=== PATIENT | female | born 1960 | race Caucasian/White ===

== ENCOUNTER 2020-03-26 12:10 | Outpatient (REF) | payer OTHER, SELFPAY ==
--- NOTE | 2020-03-26 | MM_ITS ---
EXAMINATION: MM SCREENING DIGITAL BREAST TOMOSYNTHESIS, BILATERAL CLINICAL INFORMATION: Screening. Asymptomatic. The lifetime risk of breast cancer based on the Tyrer-Cuzick Model is 7%. COMPARISON: Mammography: 03/21/2019, 07/01/2014 TECHNIQUE: Digital breast tomosynthesis is performed in both the craniocaudal and mediolateral oblique views along with computer-aided detection (CAD). Synthesized 2D images are generated from the tomosynthesis. FINDINGS: The breasts are heterogeneously dense, which may obscure small masses (ACR BI-RADS breast composition Category c). There are no significant masses, abnormal calcifications, or other abnormalities. Parenchymal pattern is similar to prior studies. No significant changes. The axilla and skin contours are unremarkable. MM/MM tomosynthesis screening BI IMPRESSION: There are no significant changes from prior study. ASSESSMENT: BI-RADS 1: Negative RECOMMENDATION: Routine annual mammography screening. This patient's information was entered into a reminder system with a target due date for their next mammogram.
== END 2020-03-26 12:11 | disposition home or self-care (01) ==
LOC: HO.MAMMO 12:10
PROVIDERS: PCP Family Medicine; Visit Provider Family Medicine
DX: Z12.31 Encounter for screening mammogram for malignant neoplasm of breast (principal)
CPT/HCPCS: 77063; 77067

== ENCOUNTER 2020-10-22 10:07 | Outpatient (REF) | payer OTHER, SELFPAY ==
[2020-10-27 12:02] LABS: FIB-ALT 54 U/L (6-29); FIB-Alpha-2-Macroglobulin 214 mg/dL (106-279); FIB-Apolipoprotein A1 245 mg/dL (101-198); FIB-GGT 3426 U/L (3-65); FIB-Haptoglobin 34 mg/dL (43-212); FIB-Total Bilirubin 2.3 mg/dL (0.2-1.2)
== END 2020-10-22 10:08 | disposition home or self-care (01) ==
LOC: HO.WFDLDS 10:07
PROVIDERS: Visit Provider Family Medicine
DX: K75.81 Nonalcoholic steatohepatitis (NASH) (principal); R79.89 Other specified abnormal findings of blood chemistry
CPT/HCPCS: 36415; 81596

== ENCOUNTER 2021-04-10 11:17 | Outpatient (REF) | payer OTHER, SELFPAY ==
[2021-04-10 14:03] LABS: Alanine Aminotransferase 32 U/L (0-31); Albumin Level 3.7 g/dL (3.5-5.0); Alkaline Phosphatase 440 U/L (39-117); Aspartate Amino Transferase 78 U/L (5-31); Bilirubin Direct 0.5 mg/dL (0.0-0.5); Bilirubin Total 0.8 mg/dL (0.0-1.0); Iron 84 mcg/dL (30-160); Percent Iron Saturation 23 % (15-50); Total Iron Binding Capacity 369 mcg/dL (228-428); Total Protein 7.4 g/dL (6.5-8.0); Unsaturated Iron Binding 285 ug/dL
== END 2021-04-10 11:18 | disposition home or self-care (01) ==
LOC: HO.WFDLDS 11:17
PROVIDERS: PCP Family Medicine; Visit Provider Family Medicine
DX: D50.9 Iron deficiency anemia, unspecified (principal); R18.8 Other ascites
CPT/HCPCS: 36415; 80076; 83540

== ENCOUNTER 2021-06-04 12:00 | Outpatient (REF) | payer OTHER, SELFPAY | END 2021-06-04 12:01 | disposition home or self-care (01) | LOC: HO.WFDLDS 12:00 | PROVIDERS: Visit Provider Family Medicine | DX: M10.9 Gout, unspecified (principal) | CPT/HCPCS: 36415; 84550 ==

== ENCOUNTER 2021-08-12 10:18 | Outpatient (REF) | payer OTHER, SELFPAY ==
--- NOTE | ~2021-08-12 | MM_ITS ---
EXAMINATION: MM SCREENING DIGITAL BREAST TOMOSYNTHESIS, BILATERAL CLINICAL INFORMATION: Screening. Asymptomatic. The lifetime risk of breast cancer based on the Tyrer-Cuzick Model is 6%. COMPARISON: Mammography: 03/26/2020, 03/21/2019, 07/01/2014 TECHNIQUE: Digital breast tomosynthesis is performed in both the craniocaudal and mediolateral oblique views along with computer-aided detection (CAD). Synthesized 2D images are generated from the tomosynthesis. FINDINGS: The breasts are heterogeneously dense, which may obscure small masses (ACR BI-RADS breast composition Category c). There are no significant masses, abnormal calcifications, or other abnormalities. Parenchymal pattern is similar to prior study. No developing density or architectural abnormality. The axilla and skin contours are unremarkable. MM/MM tomosynthesis screening BI IMPRESSION: No mammographic evidence of malignancy. ASSESSMENT: BI-RADS 1: Negative RECOMMENDATION: Routine annual mammography screening. This patient's information was entered into a reminder system with a target due date for their next mammogram.
--- NOTE | 2021-08-12 10:22 | EMG_ITS ---
HISTORY OF PRESENT ILLNESS: This is a 61-year-old woman who fell in January and injured in the left upper back area, in the scapular area, and since then, has had severe lower cervical pain and pain in the left scapular pain that radiates down the left upper extremity, which goes numb. She is not aware of any weakness. PHYSICAL EXAMINATION: On examination, she is alert, oriented with normal intellectual functions. Cranial nerves are normal. Muscle tone and strength are normal except for slight atrophy of the 1st dorsal interosseous muscle with weakness of finger spread. IMPRESSION: Rule out ulnar nerve entrapment, rule out lower cervical radiculopathy. Nerve conduction EMG study: Mild carpal tunnel syndrome on the left. Normal nerve conduction in the ulnar nerve on the left. EMG of the left C5-T1 innervated muscles shows active denervation in the C8-T1 innervated muscles on the left, consistent with C8-T1 radiculopathy. MRI of the cervical spine is recommended. MD JOLEEN Love/RORY / [id number]
== END 2021-08-12 10:19 | disposition home or self-care (01) ==
LOC: HO.NEURO 10:18
PROVIDERS: PCP Family Medicine; Visit Provider Family Medicine
DX: M79.602 Pain in left arm (principal); G90.09 Other idiopathic peripheral autonomic neuropathy; Z12.31 Encounter for screening mammogram for malignant neoplasm of breast
CPT/HCPCS: 77063; 77067; 95885; 95910

== ENCOUNTER 2021-11-19 13:10 | Outpatient (REF) | payer OTHER, SELFPAY ==
--- NOTE | ~2021-11-19 | CT_ITS ---
EXAMINATION: CT CERVICAL SPINE WITHOUT CONTRAST CLINICAL INFORMATION: Cervical radiculopathy. COMPARISON: None TECHNIQUE: CT of the cervical spine was performed without contrast. Multiplanar reformats were rendered and reviewed. This CT examination was performed using dose optimization techniques as appropriate, variously including the following: *Automated exposure control *Adjustment of mA and/or kV according to patient size (this includes techniques or standardized protocols for targeted exams where dose is matched to indication/reason for exam; i.e. extremities or head) *Use of iterative reconstruction technique DLP: 353 mGy-cm FINDINGS: The cervical vertebral bodies maintain normal heights. There is grade 1 anterolisthesis of C4 on C5 and C7 on T1. There is severe disc height loss with advanced degenerative endplate changes and marginal osteophytes at C5-C6, C6-C7, and C7-T1. Advanced facet arthropathy is seen on the left at C4-C5 and C7-T1. There is a mild degree of dextroscoliotic curvature in the lower cervical spine. The spinal canal is capacious. The imaged portions of the intracranial contents are within normal limits. The cervical soft tissues are within normal limits. Emphysematous changes are noted at the lung apices. SPINAL LEVELS: C2-C3: Left uncovertebral hypertrophy and facet arthropathy resulting in mild left neural foraminal stenosis. No spinal canal stenosis. C3-C4: Mild disc osteophyte complex with left more than right uncovertebral hypertrophy and facet arthropathy resulting in mild left neural foraminal stenosis. No spinal canal stenosis. C4-C5: Disc osteophyte complex with advanced left facet arthropathy and uncovertebral hypertrophy resulting in severe left neural foraminal stenosis. No spinal canal stenosis. C5-C6: Disc osteophyte complex with uncovertebral hypertrophy resulting in severe bilateral neural foraminal stenosis. No spinal canal stenosis. C6-C7: Disc osteophyte complex with uncovertebral hypertrophy resulting in severe bilateral neural foraminal stenosis. No spinal canal stenosis. C7-T1: Disc osteophyte complex with uncovertebral hypertrophy and severe left facet arthropathy resulting in severe left and moderate right neural foraminal stenosis. No spinal canal stenosis. CT/CT cervical spine wo IV con IMPRESSION: Advanced degenerative spondylotic changes resulting in varying degrees of neural foraminal stenosis including advanced stenosis at multiple levels. Spinal canal is capacious without stenosis.
== END 2021-11-19 13:11 | disposition home or self-care (01) ==
LOC: HO.CT 13:10
PROVIDERS: Visit Provider Neurological Surgery
DX: M54.12 Radiculopathy, cervical region (principal)
CPT/HCPCS: 72125

== ENCOUNTER 2022-03-17 14:30 | Outpatient (REF) | payer OTHER, SELFPAY ==
[2022-03-17 14:48] LABS: MANUAL DIFF FLAG NO
[2022-03-17 14:55] LABS: Basophils Percent Auto 0.7 % (0-2); Eosinophils Absolute Auto 0.1 X10*3/uL (0.0-0.4); Eosinophils Percent Auto 1.4 % (0-4); Hematocrit 37.9 % (37.0-47.0); Hemoglobin 12.8 g/dl (12.0-16.0); Imm Gran Abs Auto 0.01 X10*3/uL (0.00-0.03); Imm Gran Pct Auto 0.2 % (0.0-0.4); Lymphocytes Percent Auto 18.6 % (20-40); Mean Corpuscular HGB Conc 33.8 g/dl (31.0-35.0); Mean Corpuscular Volume 97.7 fL (80.0-98.0); Mean Platelet Volume 8.9 fL (9.4-12.3); Monocytes Absolute Auto 0.4 X10*3/uL (0.1-1.2); Monocytes Percent Auto 6.6 % (2-11); Neutrophils Absolute Auto 4.1 x10*3/uL (2.0-8.3); Neutrophils Percent Auto 72.5 % (45-73); Platelet Count 120 X10*3/uL (160-400); Red Blood Count 3.88 X10*6/uL (4.20-5.50); Red Cell Distribution Width 13.2 % (11.0-16.0); White Blood Count 5.6 X10*3/uL (4.8-10.8)
[2022-03-17 15:27] LABS: Alanine Aminotransferase 30 U/L (0-31); Albumin Level 3.9 g/dL (3.5-5.0); Alkaline Phosphatase 356 U/L (39-117); Anion Gap 14 (12-20); Aspartate Amino Transferase 68 U/L (5-31); Bilirubin Direct 0.5 mg/dL (0.0-0.5); Bilirubin Total 1.1 mg/dL (0.0-1.0); Blood Urea Nitrogen 15 mg/dL (9-16); Carbon Dioxide 25 mmol/L (22-29); Chloride 108 mmol/L (96-108); Estimated Glomerular Filt Rate > 60; Ethanol < 10 mg/dL; Potassium 4.1 mmol/L (3.3-5.1); Sodium 143 mmol/L (135-145); Total Protein 7.3 g/dL (6.5-8.0)
[2022-03-24 00:18] LABS: FIB-ALT 27 U/L (6-29); FIB-Alpha-2-Macroglobulin 199 mg/dL (106-279); FIB-Apolipoprotein A1 244 mg/dL (101-198); FIB-GGT 1350 U/L (3-65); FIB-Haptoglobin 59 mg/dL (43-212); FIB-Total Bilirubin 0.9 mg/dL (0.2-1.2); Liver Fibrosis Score 0.56; Liver Fibrosis Stage F2; Nec Inflam Act Grade A0-A1; Nec Inflam Act Score 0.18
== END 2022-03-17 14:31 | disposition home or self-care (01) ==
LOC: HO.LAB 14:30
PROVIDERS: PCP Family Medicine; Visit Provider Family Medicine
DX: I10 Essential (primary) hypertension (principal); M10.9 Gout, unspecified; D64.9 Anemia, unspecified; K74.60 Unspecified cirrhosis of liver
CPT/HCPCS: 36415; 80051; 80076; 81596; 82077; 82565; 84520; 84550; 85025

== ENCOUNTER 2022-11-30 08:10 | Outpatient (REF) | payer OTHER, SELFPAY ==
--- NOTE | ~2022-11-30 | MM_ITS ---
EXAMINATION: MM SCREENING DIGITAL BREAST TOMOSYNTHESIS, BILATERAL CLINICAL INFORMATION: Screening. Asymptomatic. COMPARISON: Mammography: This study is compared with prior exams dating back to 2015. TECHNIQUE: Digital breast tomosynthesis is performed in both the craniocaudal and mediolateral oblique views along with computer-aided detection (CAD). Synthesized 2D images are generated from the tomosynthesis. FINDINGS: The breasts are heterogeneously dense, which may obscure small masses (ACR BI-RADS breast composition Category c). There are no significant masses, abnormal calcifications, or other abnormalities. MM/MM tomosynthesis screening BI IMPRESSION: No mammographic evidence of malignancy. ASSESSMENT: BI-RADS BI-RADS 1 - Negative RECOMMENDATION: Routine annual mammography screening. 1 year F/U This examination should not preclude the clinical evaluation of a suspicious palpable abnormality. This patient's information was entered into a reminder system with a target due date for their next mammogram.
== END 2022-11-30 08:11 | disposition home or self-care (01) ==
LOC: HO.MAMMO 08:10
PROVIDERS: PCP Family Medicine; Visit Provider Family Medicine
DX: Z12.31 Encounter for screening mammogram for malignant neoplasm of breast (principal)
CPT/HCPCS: 77063; 77067

== ENCOUNTER → 2022-11-30 08:15 | Outpatient (BNV) | payer OTHER, SELFPAY | PROVIDERS: PCP Family Medicine; Visit Provider Radiology Diagnostic Radiology | DX: Z12.31 Encounter for screening mammogram for malignant neoplasm of breast (principal) | CPT/HCPCS: 77063; 77067 ==

== ENCOUNTER 2023-05-13 09:05 | Outpatient (REF) | payer OTHER, SELFPAY ==
--- NOTE | ~2023-05-13 | US_ITS ---
EXAMINATION: US ABDOMEN COMPLETE CLINICAL INFORMATION: Cirrhosis. COMPARISON: None available. TECHNIQUE: Real-time imaging of the abdominal viscera. FINDINGS: PANCREAS: Pancreatic head and body are prominent in size, tail is obscured. No definite lesion appreciated. ABDOMINAL AORTA: The proximal, mid, and distal segments are normal in caliber. INFERIOR VENA CAVA: Visualized portions are normal. LIVER: Liver is enlarged measuring 17 cm with coarsened increased echotexture and lobulated contour. Hepatofugal flow identified in the main portal vein. No focal hepatic lesion. There is no intrahepatic biliary duct dilatation seen. GALLBLADDER: Gallbladder is moderately distended with wall thickening and wall fluid measuring approximately 7-8 mm. 8 x 6 x 5 mm echogenic gallbladder wall nodular focus identified. Tenderness was elicited during the study. No definite gallstones or gallbladder sludge. COMMON BILE DUCT: Normal in caliber measuring 0.5 cm in diameter. RIGHT KIDNEY: Normal. No hydronephrosis. No renal calculi or focal parenchymal lesions. The kidney measures 9.5 cm in maximum dimension. LEFT KIDNEY: Normal. No hydronephrosis. No renal calculi or focal parenchymal lesions. The kidney measures 9.6 cm in maximum dimension. SPLEEN: The spleen measures 11-12.3 cm in maximum dimension with slightly globular appearance. FREE FLUID: Ascites is present about the liver and spleen. US/US abdomen complete IMPRESSION: Cirrhotic liver with portal venous hypertension/main portal vein reversal of flow. Gallbladder wall thickening with fluid and wall and tenderness during study. Evaluate clinically for acalculous cholecystitis. 8 mm gallbladder polypoid lesion.
[2023-05-13 09:38] LABS: Hematocrit 29.5 % (37.0-47.0); Hemoglobin 10.4 g/dl (12.0-16.0); Mean Corpuscular HGB Conc 35.3 g/dl (31.0-35.0); Mean Corpuscular Hemoglobin 34.7 pg (27.0-33.0); Mean Corpuscular Volume 98.3 fL (80.0-98.0); Mean Platelet Volume 9.6 fL (9.4-12.3); Platelet Count 145 X10*3/uL (160-400); Red Cell Distribution Width 18.2 % (11.0-16.0)
[2023-05-13 09:41] LABS: INTERNATIONAL NORM RATIO 1.6 (0.9-1.1); Prothrombin Time 19.5 SEC (11.1-13.3)
[2023-05-13 10:03] LABS: Alanine Aminotransferase 16 U/L (0-31); Albumin Level 2.4 g/dL (3.5-5.0); Alkaline Phosphatase 331 U/L (39-117); Aspartate Amino Transferase 97 U/L (5-31); Bilirubin Direct 8.9 mg/dL (0.0-0.5); Bilirubin Total 11.5 mg/dL (0.0-1.0); Total Protein 6.5 g/dL (6.5-8.0)
[2023-05-21 18:07] LABS: FIB-ALT 16 U/L (6-29); FIB-Alpha-2-Macroglobulin 276 mg/dL (106-279); FIB-Apolipoprotein A1 16 mg/dL (101-198); FIB-GGT 345 U/L (3-65); FIB-Haptoglobin 56 mg/dL (43-212); FIB-Total Bilirubin 11.5 mg/dL (0.2-1.2); Liver Fibrosis Score 0.99; Liver Fibrosis Stage F4; Nec Inflam Act Grade A0; Nec Inflam Act Score 0.15
== END 2023-05-13 09:06 | disposition home or self-care (01) ==
LOC: HO.US 09:05
PROVIDERS: PCP Family Medicine; Visit Provider Internal Medicine Gastroenterology
DX: K74.60 Unspecified cirrhosis of liver (principal)
CPT/HCPCS: 36415; 76700; 80076; 81596; 85027; 85610

== ENCOUNTER 2023-05-16 12:16 | Outpatient (REF) | payer OTHER, SELFPAY ==
[2023-05-16 13:46] LABS: INTERNATIONAL NORM RATIO 1.6 (0.9-1.1); Prothrombin Time 19.6 SEC (11.1-13.3)
[2023-05-16 14:17] LABS: Alanine Aminotransferase 22 U/L (0-31); Albumin Level 2.3 g/dL (3.5-5.0); Alkaline Phosphatase 299 U/L (39-117); Anion Gap 16 (12-20); Aspartate Amino Transferase 90 U/L (5-31); Bilirubin Direct 10.2 mg/dL (0.0-0.5); Blood Urea Nitrogen 26 mg/dL (9-16); Carbon Dioxide 23 mmol/L (22-29); Chloride 98 mmol/L (96-108); Estimated Glomerular Filt Rate 32; Ferritin 245 ng/mL (10-250); Glucose Random 149 mg/dL (60-115); Iron 100 mcg/dL (30-160); Percent Iron Saturation 76 % (15-50); Potassium 3.8 mmol/L (3.3-5.1); Sodium 133 mmol/L (135-145); Total Iron Binding Capacity 132 mcg/dL (228-428); Total Protein 6.6 g/dL (6.5-8.0); Unsaturated Iron Binding 32 ug/dL
[2023-05-17 08:38] LABS: HBS Num1 5.53 mIU/mL (0-7.99); HBc Num1 0.12 S/CO (0.00-0.79); HBsAGNum1 0.37 S/CO (0.00-0.99); Hepatitis B Core Antibody Nonreactive (Nonreactive); Hepatitis B Surface Antigen Negative (Negative); ~HepC Num1 0.16 S/CO (0.00-0.79); ~Hepatitis A Antibody IgM Nonreactive (Nonreactive); ~Hepatitis B Surface Antibody NONREACTIVE (Nonreactive); ~Hepatitis C Antibody Nonreactive (Nonreactive)
[2023-05-19 15:47] LABS: Mitochondrial Antibodies NEGATIVE (NEGATIVE)
[2023-05-20 15:22] LABS: Smooth Muscle Antibody <20 U (<20)
[2023-05-23 10:53] LABS: Anti Nuclear Antibody Pattern Nuclear, Nucleolar; Anti Nuclear Antibody Screen POSITIVE (NEGATIVE)
== END 2023-05-16 12:17 | disposition home or self-care (01) ==
LOC: HO.10HDL 12:16
PROVIDERS: Visit Provider Internal Medicine Gastroenterology
DX: R79.89 Other specified abnormal findings of blood chemistry (principal)
CPT/HCPCS: 36415; 80048; 80076; 82728; 83540; 85610; 86015; 86038; 86039; 86381; 86704; 86706; 86709; 86803; 87340

== ENCOUNTER 2023-05-31 08:06 | Day surgery (SDC) | payer OTHER, SELFPAY ==
--- NOTE | ~2023-05-31 | US_ITS ---
ULTRASOUND GUIDED PARACENTESIS HISTORY: Ascites. Therapeutic and diagnostic. Risks and benefits and possible complications were discussed with the patient and consent form was signed. A safe pocket of ascitic fluid was identified within the right lower quadrant using ultrasound guidance, and the overlying skin was marked, prepped and draped in sterile fashion. 1% lidocaine was used as a local anesthetic. Using ultrasound guidance, a 5 fr catheter was placed into the ascitic pocket. 2.5 liters of yellow fluid was removed passively. The catheter was then removed. Small amount of fluid was sent for analysis. A few shipping services sales representative images from before and after the examination were obtained. Cirrhotic configuration of the liver is noted. The procedure was performed by Karlo Portillo PA-C and supervised by Dr. Emery. US/US paracentesis abd w/image IMPRESSION: Ultrasound-guided paracentesis as described above. No immediate complications
[2023-05-31 09:08] VITALS: BP 100/45; PULSE 72; RESP 18; TEMP 36.8; O2SAT 98; BMI 23.4
[2023-05-31] MEDS: Lidocaine HCl 1 % MPF 5 ML VIAL SUBCUT (10:11)
[2023-05-31 10:20] VITALS: BP 89/45; PULSE 78; RESP 20; TEMP 37.1; O2SAT 97
[2023-05-31 10:41] VITALS: BP 94/49; PULSE 76; RESP 17; TEMP 36.9; O2SAT 94
[2023-05-31 11:06] LABS: MN% 80.3 %; PMN% 19.7 %; WBC Peritoneal Fluid 0.064 X10*3/uL
[2023-05-31 11:07] LABS: RBC Peritoneal Fluid < 0.002 X10*6/uL
[2023-05-31 12:23] LABS: BF Shift QC OK YES
[2023-05-31 12:24] LABS: Lymphocyte Peritoneal Fl 22 %; Man Diluent Bkgrd OK YES; Monocytes Peritoneal Fl 9 %; Neutrophils Peritoneal Fluid 12 %; Other Peritioneal Fl 57 %
[2023-06-07 08:30] LABS: Total Protein Peritoneal Fluid 0.8
[2023-06-07 08:32] LABS: LDH Peritoneal Fluid 31
== END 2023-05-31 10:46 | disposition home or self-care (01) ==
PROVIDERS: Physician Assistant Surgical; PCP Family Medicine; Visit Provider Internal Medicine Gastroenterology
DX: K70.31 Alcoholic cirrhosis of liver with ascites (principal); R53.83 Other fatigue; F10.10 Alcohol abuse, uncomplicated; I10 Essential (primary) hypertension; K21.9 Gastro-esophageal reflux disease without esophagitis; E78.5 Hyperlipidemia, unspecified; R79.89 Other specified abnormal findings of blood chemistry; Q45.3 Other congenital malformations of pancreas and pancreatic duct; Z79.899 Other long term (current) drug therapy; F17.210 Nicotine dependence, cigarettes, uncomplicated
CPT/HCPCS: 49083; 83615; 84157; 87070; 87073; 87205; 88112; 89051

== ENCOUNTER → 2023-05-31 09:45 | Outpatient (BNV) | payer OTHER, SELFPAY | PROVIDERS: PCP Family Medicine; Visit Provider Physician Assistant Surgical | DX: K70.31 Alcoholic cirrhosis of liver with ascites (principal) | CPT/HCPCS: 49083 ==

== ENCOUNTER 2023-06-06 17:30 | Inpatient (IN) | payer OTHER, SELFPAY ==
--- NOTE | ~2023-06-06 | US_ITS ---
EXAMINATION: US ABDOMEN LIMITED CLINICAL INFORMATION: Right upper quadrant tenderness to palpation with hyperbilirubinemia. COMPARISON: Ultrasound abdomen 05/13/2023 TECHNIQUE: Real-time imaging of the right upper quadrant abdominal viscera. FINDINGS: PANCREAS: The pancreas appears unremarkable, without masses or ductal dilatation, with the exception of the tail which is obscured by bowel gas. LIVER: The liver is mildly enlarged at 17.5 cm in greatest length with heterogeneous increased echogenicity and nodular border consistent with cirrhosis. No focal hepatic lesion. There is no intrahepatic biliary duct dilatation seen. Moderate ascites is present GALLBLADDER: The gallbladder is abnormal with an echogenic mural based mass seen which is increased in size when compared to the prior study currently measuring 1.5 x 0.6 x 0.5 cm and previously measuring 0.8 x 0.6 x 0.5 cm. The gallbladder is physiologically distended without evidence of definite shadowing stones, sludge or pericholecystic fluid. Cesar's sign is negative COMMON BILE DUCT: Normal in caliber measuring 0.5 cm in diameter. RIGHT KIDNEY: Normal. No hydronephrosis. No renal calculi or focal parenchymal lesions. The kidney measures 9 point cm in maximum dimension. FREE FLUID: None. US/US abdomen limited IMPRESSION: 1. Cirrhotic appearing liver with ascites. 2. Enlarging gallbladder mass. Surgical consultation is recommended.
--- NOTE | ~2023-06-06 | CT_ITS ---
EXAMINATION: CT HEAD WITHOUT CONTRAST CLINICAL INFORMATION: Encephalopathy COMPARISON: None available. TECHNIQUE: Contiguous axial imaging was performed from the skull base to vertex without intravenous administration of contrast. This CT examination was performed using dose optimization techniques as appropriate, variously including the following: *Automated exposure control *Adjustment of mA and/or kV according to patient size (this includes techniques or standardized protocols for targeted exams where dose is matched to indication/reason for exam; i.e. extremities or head) *Use of iterative reconstruction technique DLP: 600 mGy-cm FINDINGS: There is no evidence of acute intracranial hemorrhage or territorial infarction. No abnormal mass effect or midline shift is seen. Aguilar to white matter differentiation is well preserved. No extra-axial fluid collections are identified. The ventricles are normal in size. Minor chronic white matter ischemic changes periventricular white matter. The osseous structures and soft tissues are normal. The mastoid air cells and visualized portions of the paranasal sinuses are well-aerated. CT/CT head/brain wo IV con IMPRESSION: No acute intracranial pathology.
--- NOTE | ~2023-06-06 | NM_ITS ---
EXAMINATION: NM TC RBC GI BLEEDING CLINICAL INFORMATION: Gastrointestinal bleed. PROCEDURE: Following the sequential intravenous administration of 25 mCi Tc-99m labeled red blood cells, sequential static images of the abdomen were obtained using a gamma scintillation camera total observation 60 minutes. FINDINGS: No abnormal accumulations of radioisotope are seen in the abdomen. At approximately 38 minutes post injection the patient moved his left arm and hand over the left lower quadrant of the abdomen. A subtle abnormality at this site may be masked by the latter. NM/NM GI bleeding IMPRESSION: No gastrointestinal bleeding is identified. A subtle left lower quadrant bleeding site may be masked by the patient's hand which was moved over this region during the last part of the study as described above.
--- NOTE | ~2023-06-06 | US_ITS ---
Ultrasound paracentesis History: Ascites. Risks and benefits and possible complications were discussed with the patient and consent form was signed. A safe pocket of ascitic fluid was identified using ultrasound guidance, and the overlying skin was marked. The abdomen prepped and draped in sterile fashion. 1% lidocaine was used as a local anesthetic. Using ultrasound guidance, a 5 fr catheter was placed into the ascitic pocket. 2.7 liters of yellow fluid was removed passively. The catheter was then removed. A few credit and collections representative images from before and after the examination were obtained. The procedure was performed by Karlo Portillo PA-C and supervised by Dr. Christian. US/US paracentesis abd w/image Impression: Ultrasound-guided paracentesis as described above. No immediate complications
--- NOTE | ~2023-06-06 | CT_ITS ---
EXAMINATION: CT ABDOMEN AND PELVIS WITHOUT CONTRAST CLINICAL INFORMATION: Abdominal pain. COMPARISON: June 07, 2023. TECHNIQUE: Multidetector volumetric imaging was performed from the superior aspect of the liver through the pubic symphysis. Sagittal and coronal reformatted images were obtained on the technologist's workstation. This CT examination was performed using dose optimization techniques as appropriate, variously including the following: *Automated exposure control *Adjustment of mA and/or kV according to patient size (this includes techniques or standardized protocols for targeted exams where dose is matched to indication/reason for exam; i.e. extremities or head) *Use of iterative reconstruction technique DLP: 562 mGy-cm FINDINGS: LUNG BASES: Question mild bilateral interstitial prominence and Gaetano B-lines, right greater than left. No effusion. Suspect decreased blood pool density, raising suspicion for anemia. LIVER, GALLBLADDER, AND BILIARY TREE: Nodular hepatic contour, as previously seen. No suspicious focal hepatic mass identified on this noncontrast study. Mild hepatomegaly, measuring approximately 20 cm in sagittal dimension. No evidence of biliary ductal dilation. Less than 5 mm layering gallstones. PANCREAS: Unremarkable SPLEEN: Mild splenomegaly, measuring approximately 13.3 cm in sagittal dimension. ADRENAL GLANDS: Unremarkable KIDNEYS AND URETERS: The kidneys appear unremarkable in size, shape, and attenuation. No hydronephrosis, hydroureter, or calculi seen. BLADDER: Unremarkable GASTROINTESTINAL TRACT: The small and large bowel appear unremarkable. PERITONEAL CAVITY: Moderate ascites, unchanged. ABDOMINAL WALL: Mild anasarca. No significant hernia is appreciated. LYMPH NODES: No evidence of adenopathy by size criteria. VASCULAR: Unremarkable PELVIC VISCERA: Unremarkable OSSEOUS STRUCTURES: Severe disc degenerative change at L5-S1. Minimal grade 1 anterolisthesis of L4 on L5. Multiple healed bilateral rib fractures. CT/CT abdomen pelvis wo IV con IMPRESSION: No significant radiographic change compared with 8 days prior. Hepatic cirrhosis. Ascites and splenomegaly, consistent with portal hypertension. Additional findings, as above.
--- NOTE | ~2023-06-06 | XR_ITS ---
EXAMINATION: XR CHEST CLINICAL INFORMATION: Shortness of breath COMPARISON: Chest radiograph 06/06/2023 TECHNIQUE: Frontal view of the chest was obtained. FINDINGS: Compared to the prior study, lung volumes have decreased. Heart size upper limits of normal. There is increased interstitial prominence, upper zone redistribution and bronchial thickening. No pleural effusions are seen. No focal consolidation or lung mass. XR/XR chest 1V IMPRESSION: Interstitial prominence with upper zone redistribution and bronchial thickening. Findings may be secondary to pulmonary edema.
--- NOTE | ~2023-06-06 | XR_ITS ---
EXAMINATION: XR CHEST CLINICAL INFORMATION: Shortness of breath COMPARISON: Chest x-ray on 10/16/2018 TECHNIQUE: Frontal view of the chest was obtained. FINDINGS: The cardiac silhouette is normal. There is mild diffuse bronchial wall thickening. There are no areas of consolidation. There are no pleural effusions or pneumothoraces. The bones and soft tissues are unremarkable for the patient's age. XR/XR chest 1V IMPRESSION: Bronchial wall thickening may be infectious and/or inflammatory in etiology.
--- NOTE | ~2023-06-06 | CT_ITS ---
EXAMINATION: CT ABDOMEN AND PELVIS WITHOUT CONTRAST CLINICAL INFORMATION: Gallbladder mass COMPARISON: Right upper quadrant ultrasound June 06, 2023 TECHNIQUE: Multidetector volumetric imaging was performed from the superior aspect of the liver through the pubic symphysis. Sagittal and coronal reformatted images were obtained on the technologist's workstation. This CT examination was performed using dose optimization techniques as appropriate, variously including the following: *Automated exposure control *Adjustment of mA and/or kV according to patient size (this includes techniques or standardized protocols for targeted exams where dose is matched to indication/reason for exam; i.e. extremities or head) *Use of iterative reconstruction technique DLP: 451 mGy-cm FINDINGS: LUNG BASES: The visualized lung bases are unremarkable. Coronary artery calcifications present. LIVER, GALLBLADDER, AND BILIARY TREE: Nodular contour of the liver surface suggesting underlying cirrhosis. No focal liver lesion or intrahepatic bile duct dilatation. Liver is enlarged. Right lobe of liver measures 19 cm superior Small calcified gallstones within the gallbladder. No bile duct dilatation. PANCREAS: Unremarkable. SPLEEN: Spleen prominent size measuring 12 cm of length. No splenic lesion. ADRENAL GLANDS: Unremarkable. KIDNEYS AND URETERS: The kidneys are normal in size, shape, and attenuation. No hydronephrosis, hydroureter, or calculi seen. No perinephric stranding. BLADDER: Unremarkable. GASTROINTESTINAL TRACT: There is oral contrast in small and large bowel loops. The bowel loops are nondilated. No point of obstruction. Small volume of scattered stool in colon. The appendix is not visualized. A small hiatal hernia. Mesentery: Large volume of abdominal ascites. ABDOMINAL WALL: No significant hernia is appreciated. LYMPH NODES: Normal. VASCULAR: Vascular calcifications the wall of aorta and iliac arteries PELVIC VISCERA: Unremarkable. OSSEOUS STRUCTURES: Unremarkable. CT/CT abdomen pelvis wo IV con IMPRESSION: 1. Large volume of abdominal ascites. 2. Hepatomegaly. Nodular contour of liver surface suggesting underlying cirrhosis. 3. Cholelithiasis. Fleischner guidelines were followed.
--- NOTE | ~2023-06-06 | US_ITS ---
ULTRASOUND GUIDED PARACENTESIS HISTORY: Ascites. Cirrhosis. Renal failure. Therapeutic drainage. Risks and benefits and possible complications were discussed with the patient and consent form was signed. A safe pocket of ascitic fluid was identified right lower quadrant using ultrasound guidance, and the overlying skin was marked, prepped and draped in sterile fashion. 1% lidocaine was used as a local anesthetic. Using ultrasound guidance, a 4 fr catheter was placed into the ascitic pocket. 2.0 liters of yellow fluid was removed passively per request of nephrology. The catheter was then removed. A 3-0 Prolene [id number] suture was placed to prevent any leaking of ascites. A dry dressing was applied. A few apprenticeship training representative images from before and after the examination were obtained. The procedure was performed by Karlo Portillo PA-C and supervised by Dr. Emery. US/US paracentesis abd w/image IMPRESSION: Successful Ultrasound-guided paracentesis as described above. No immediate complications
--- NOTE | ~2023-06-06 | MR_ITS ---
EXAMINATION: MR ABDOMEN WITHOUT AND WITH CONTRAST CLINICAL INFORMATION: Evaluate gallbladder lesion. COMPARISON: Abdomen ultrasound from 06/06/[address] from 06/07/2023. TECHNIQUE: MR abdomen was performed on a high-field magnet without and with use of 6 mL intravenous Gadavist contrast. Postcontrast images are performed in multiphase dynamic sequences. Imaging was performed in 3 planes. FINDINGS: Lung bases are unremarkable. Cirrhotic liver has nodular surface contour. Hepatomegaly with the right hepatic lobe measuring 20.3 cm in craniocaudal dimension. No focal liver lesion. No evidence of an arterial phase hyperenhancing focus with contrast washout or capsular features. Gallbladder is underdistended and its wall is approximately 0.4 cm thick which appears to be commensurate with the degree of lack of distention. A few calculi are detected within the lumen of the gallbladder. No evidence of gallbladder mass. The gallbladder mucosa enhances normally on the postcontrast images. No intrahepatic or extrahepatic bile duct dilatation. Pancreas is normal. Spleen is mildly enlarged from a volumetric perspective; it measures 10.6 cm AP, approximately 4.6 cm transverse and 11 cm craniocaudal. No focal splenic lesion. Adrenal glands are normal. Kidneys are normal in size and enhance symmetrically. No hydronephrosis. Abdominal aorta is normal in caliber and its branches are widely patent. Inferior vena cava is normal. Splenic, portal and hepatic veins are patent. Main portal vein is mildly enlarged, likely a manifestation of portal venous hypertension, and there are dilated mesenteric/inferior mesenteric venous collaterals. No venous thrombosis. No pathologic sized lymph nodes in the abdomen. Small sliding-type hiatal hernia. No dilated bowel loops. [id number] volume of ascitic fluid is present within the abdomen and there is diffuse edema of mesenteric fat. Also, there is edema of subcutaneous tissues of the abdominal wall and back. No suspicious osseous lesions. Facet osteoarthritis and mild grade 1 anterolisthesis at L4-5. Degenerative disc disease with severe loss of disc height and osteophyte formation at L5-S1. MR/MR abdomen wo/w con Impression: * Cholelithiasis without evidence of choledocholithiasis or biliary tract obstruction. * No evidence of gallbladder mass. * Cirrhotic liver, likely portal venous hypertension, mild splenomegaly, ascites and diffuse mesenteric edema.
[2023-06-06 17:50] VITALS: BP 78/39; PULSE 84; RESP 20; TEMP 36.3; O2SAT 100; BMI 23.2
--- NOTE | 2023-06-06 18:02 | ED_ITS ---
HPI - General Adult General Chief complaint: Weakness Stated complaint: was seen tuesday, abcess + pain Time Seen by Provider: 06/06/23 18:06 History of Present Illness HPI narrative: The patient is a 63-year-old female who has a history of alcohol use in the past. She has recently been found to have what seems to be decompensated cirrhosis of the liver. Three weeks ago on May [address] Bautista Reddy of Gastroenterology for the 1st time in a long time. At the time of her visit with Dr. Reddy 3 weeks ago she had had lab tests consistent with jaundice and she had also had an ultrasound that showed cirrhotic liver with portal venous hypertension/main portal vein reversal of flow. She also had significant ascites. Dr. Reddy arranged for her to have an outpatient paracentesis 1 week ago. She says that she had 3.5 L removed. Over the last few days the patient continues to feel quite weak. She feels she is eating poorly. She feels that her abdomen has become more distended again and it is to some degree interfering with her breathing. She contemplated coming to the emergency room yesterday but did not have a ride. This morning she called Dr. Reddy's office. He called back this afternoon and advised her to come to the emergency room. She does not think she has had a fever. No vomiting. Related Data Allergies Allergy/AdvReac Type Severity Reaction Status Date / Time codeine [CODEINE] Allergy Unknown NAUSEA Verified 06/06/23 17:52 PMFSH Past Medical History Medical History Thrombocytopenia Portal venous hypertension Abdominal ascites Hyperlipidemia GERD (gastroesophageal reflux disease) Hypertension Cirrhosis Alcohol abuse Surgical History Hx of section History of back surgery Hx of esophagogastroduodenoscopy Hx of colonoscopy Social History Social History Alcohol intake: former Patient Tobacco Use Status: Tobacco use Unknown Tobacco use type: Cigarette Smoked in Last 30 Days: Yes Use of substances other than those prescribed or required for medical reasons: No Advance Directives: No Advance Directives Information Provided: No Nutrition Risks: No Nutritional Risk Patient : No Physical Exam ED Vital Signs: Vital Signs - 24 hr 06/06/23 17:50 06/06/23 18:05 06/06/23 18:16 Temperature 97.4 F 97.7 F Pulse Rate 84 81 Respiratory Rate 20 18 Blood Pressure 78/39 L 90/42 L Pulse Oximetry 100 99 Oxygen Delivery Method Room Air BMI result Body Mass Index 23.2 Const Other: The patient is a chronically ill-appearing 63-year-old who was awake and alert. She is obviously jaundiced. She does not seem short of breath or toxic. HENMT Other: Face is symmetrical. Mucous membranes slightly dry. Eyes Other: Pupils are round equal, conjunctivae are clear, significant scleral icterus. Neck Other: No JVD Resp Effort & Inspection: normal respiratory effort Auscultation: clear to auscultation bilaterally Cardio Rate: regular rate Rhythm: regular rhythm Heart sounds: S1 normal heart sound present and S2 normal heart sound present GI Other: The abdomen is protuberant but not markedly tender. It is soft. Skin Other: Skin is jaundiced but otherwise dry and unremarkable. Neuro Other: The patient is awake and alert. Mental status seems clear. She seems generally weak but has no focal findings. Extrem Other: No pitting edema Course Course Course Narrative: RME: 63-year-old female presents to the ED for jaundice, abdominal pain, abdominal distention, and weakness. Patient is hypotensive. Labs, albumin fluids ordered. Abdominal CT scan ordered. Patient had paracentesis last Tuesday. Most recent ultrasound showed possible pancreatic malignancy. Patient unaware. Medications Administered Discontinued Medications Generic Name Dose Route Start Last Admin Trade Name Freq PRN Reason Stop Dose Admin Sodium Chloride 1,000 mls @ 999 mls/hr 06/06/23 17:55 06/06/23 19:29 Ns IV 06/06/23 18:55 Infused .Q1H1M STA Infusion Albumin Human 100 mls @ 100 mls/hr 06/06/23 20:15 06/06/23 23:11 Kedbumin 25 % IV 06/06/23 22:14 Infused Q1H JOSE ALFREDO Infusion Lidocaine HCl 10 ml 06/06/23 19:07 06/06/23 19:29 Lidocaine Hcl 1 % 10 Ml Vial INFILTRATI 06/06/23 19:08 Not Given ONCE ONE Procedures Paracentesis Time Out Performed: Yes Local Anesthetic: lidocaine 1% Amount of anesthesia used (mL): 10 Fluid: clear and sent to lab for analysis Post Procedure Exam: awake, alert Patient Tolerated Procedure: well Complications: none Medical Decision Making Medical Decision Making [facility] Narrative: The patient is a 63-year-old woman who has recently been found to have decompensated cirrhosis probably related to previous alcohol use. She had her 1st large volume paracentesis 1 week ago as an outpatient. She now presents with worsening fatigue an increased sense of abdominal distention. She has not had a fever. She is quite jaundiced. On the patient's labs today the most significant findings are a significant change in her kidney function. Her creatinine today is 4.43 which is up from 1.62 3 weeks ago. Her BUN has gone up to 63. The patient as a mild white count elevation. C-reactive protein is mildly elevated at 4.29. The patient's blood pressure was low but she has not febrile. I think her low blood pressure is related to her ascites rather than an infectious process. I performed a diagnostic paracentesis. I used an ultrasound to locate a pocket of ascites fluid in the left abdomen. I use color Doppler to ensure that there were no blood vessels in the area I would be going through with a needle. I obtained written consent from the patient and a time-out was done with a nurse present. The skin was prepped with chlorhexidine. Under sterile conditions the skin was anesthetized with 1% plain lidocaine. I then used an 18 gauge needle in a Z-plasty type of advancement through the abdominal wall and obtained a serous looking fluid. I withdrew a total of 50 mL. The patient tolerated the procedure well. A Band-Aid was placed at the site. Given the patient's worsening renal function the patient will be admitted for further care. Lab Data 06/06/23 18:10 06/06/23 18:10 Labs: Lab Results 06/06/23 06/06/23 Range/Units 18:10 19:42 WBC 13.9 H (4.8-10.8) X10*3/uL RBC 3.18 L (4.20-5.50) X10*6/uL Hgb 11.2 L (12.0-16.0) g/dl Hct 30.4 L (37.0-47.0) % MCV 95.6 (80.0-98.0) fL MCH 35.2 H (27.0-33.0) pg MCHC 36.8 H (31.0-35.0) g/dl RDW 17.1 H (11.0-16.0) % Plt Count 129 L (160-400) X10*3/uL MPV 11.9 (9.4-12.3) fL Immature Gran % (Auto) 1.1 H (0.0-0.4) % Neut % (Auto) 84.6 H (45-73) % Lymph % (Auto) 7.6 L (20-40) % [facility] % (Auto) 5.8 (2-11) % Eos % (Auto) 0.6 (0-4) % Baso % (Auto) 0.3 (0-2) % Lymph # (Auto) 1.1 L (1.2-4.9) X10*3/uL [facility] # (Auto) 0.8 (0.1-1.2) X10*3/uL Eos # (Auto) 0.1 (0.0-0.4) X10*3/uL Baso # (Auto) 0.0 (0.0-0.2) X10*3/uL Abs Immat Gran (auto) 0.15 H (0.00-0.03) X10*3/uL Absolute Neuts (auto) 11.7 H (2.0-8.3) x10*3/uL Absolute Nucleated RBC 0.030 H (0.0-0.012) X10*3/uL Nucleated RBC % (auto) 0.2 (0.0-0.2) /100WBC PT 17.1 H (11.1-13.3) SEC INR 1.4 H (0.9-1.1) APTT 44.2 H (26.0-36.8) SEC Sodium 128 L (135-145) mmol/L Potassium 4.8 D (3.3-5.1) mmol/L Chloride 99 (96-108) mmol/L Carbon Dioxide 17 L (22-29) mmol/L Anion Gap 17 (12-20) BUN 63 H (9-16) mg/dL Creatinine 4.43 H* (0.5-1.4) mg/dL Estim Creat Clear Calc 10.5 Estimated GFR 10 Random Glucose 165 H (60-115) mg/dL Calcium 8.0 L (8.4-10.2) mg/dL Total Bilirubin 15.5 H (0.0-1.0) mg/dL Direct Bilirubin 12.1 H (0.0-0.5) mg/dL AST 118 H (5-31) U/L ALT 30 (0-31) U/L Alkaline Phosphatase 302 H (39-117) U/L C-Reactive Protein 4.29 H (< or = 0.50) mg/dL Total Protein 6.4 L (6.5-8.0) g/dL Albumin 2.1 L (3.5-5.0) g/dL Lipase 32 (8-78) U/L Peritoneal WBC 0.026 X10*3/uL Peritoneal RBC < 0.002 X10*6/uL Periton Neutrophils 13 % Periton Lymphocytes 5 % Peritoneal Monocytes 24 % Peritoneal Eosinophils 0 % Peritoneal Basophils 0 % Peritoneal Other Cells 58 % Discharge Plan Discharge Clinical Impression: Acute kidney injury, Jaundice, Cirrhosis of liver with ascites Patient Disposition: Admitted As Inpatient
[2023-06-06 18:05] VITALS: BP 90/42; PULSE 81; RESP 18; O2SAT 99
[2023-06-06] MEDS: 0.9 % Sodium Chloride 1,000 ML 999 ML IV (18:11)
[2023-06-06 18:16] VITALS: TEMP 36.5
[2023-06-06 18:16] LABS: Basophils Percent Auto 0.3 % (0-2); Eosinophils Absolute Auto 0.1 X10*3/uL (0.0-0.4); Eosinophils Percent Auto 0.6 % (0-4); Hematocrit 30.4 % (37.0-47.0); Hemoglobin 11.2 g/dl (12.0-16.0); Imm Gran Abs Auto 0.15 X10*3/uL (0.00-0.03); Imm Gran Pct Auto 1.1 % (0.0-0.4); Lymphocytes Absolute Auto 1.1 X10*3/uL (1.2-4.9); Lymphocytes Percent Auto 7.6 % (20-40); MANUAL DIFF FLAG NO; Mean Corpuscular HGB Conc 36.8 g/dl (31.0-35.0); Mean Corpuscular Hemoglobin 35.2 pg (27.0-33.0); Mean Corpuscular Volume 95.6 fL (80.0-98.0); Mean Platelet Volume 11.9 fL (9.4-12.3); Monocytes Absolute Auto 0.8 X10*3/uL (0.1-1.2); Monocytes Percent Auto 5.8 % (2-11); NRBC Pct Auto 0.2 /100WBC (0.0-0.2); Neutrophils Absolute Auto 11.7 x10*3/uL (2.0-8.3); Neutrophils Percent Auto 84.6 % (45-73); Platelet Count 129 X10*3/uL (160-400); Red Blood Count 3.18 X10*6/uL (4.20-5.50); Red Cell Distribution Width 17.1 % (11.0-16.0); White Blood Count 13.9 X10*3/uL (4.8-10.8)
[2023-06-06 18:25] LABS: INTERNATIONAL NORM RATIO 1.4 (0.9-1.1); Prothrombin Time 17.1 SEC (11.1-13.3)
[2023-06-06 18:27] LABS: Partial Thromboplastin Time 44.2 SEC (26.0-36.8)
[2023-06-06 18:35] LABS: Alanine Aminotransferase 30 U/L (0-31); Albumin Level 2.1 g/dL (3.5-5.0); Alkaline Phosphatase 302 U/L (39-117); Anion Gap 17 (12-20); Aspartate Amino Transferase 118 U/L (5-31); Bilirubin Total 15.5 mg/dL (0.0-1.0); Blood Urea Nitrogen 63 mg/dL (9-16); C Reactive Protein 4.29 mg/dL (< or = 0.50); Carbon Dioxide 17 mmol/L (22-29); Chloride 99 mmol/L (96-108); Creatinine Clr Calc Pharmacy 10.5; Estimated Glomerular Filt Rate 10; Glucose Random 165 mg/dL (60-115); Lipase 32 U/L (8-78); Potassium 4.8 mmol/L (3.3-5.1); Sodium 128 mmol/L (135-145); Total Protein 6.4 g/dL (6.5-8.0)
--- NOTE | 2023-06-06 19:50 | PC.NURSE ---
assumed care of patient at 1900 - time out done by MD Davis @19:20 for diagnostic paracentesis of ascites. fluid labeled/sent off to lab. Pt resting comfortably on stretcher on automotive parts counter person. offers no current complaints. call padilla within reach, plan for pt to be admitted to hospital.
[2023-06-06 20:08] LABS: MN% 82.6 %; PMN% 17.4 %; WBC Peritoneal Fluid 0.026 X10*3/uL
[2023-06-06 20:09] LABS: RBC Peritoneal Fluid < 0.002 X10*6/uL
[2023-06-06] MEDS: Albumin Human 25 % 100 ML IV ×2 (20:36→22:10)
[2023-06-06 20:44] LABS: Lymphocyte Peritoneal Fl 5 %; Neutrophils Peritoneal Fluid 13 %
[2023-06-06 20:45] LABS: BF Shift QC OK YES; Basophils Peritoneal Fl 0 %; Eosinophils Peritoneal Fl 0 %; Monocytes Peritoneal Fl 24 %; Other Peritioneal Fl 58 %
--- NOTE | 2023-06-06 20:46 | PM.IMHP ---
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 She underwent a paracentesis last Tuesday and had 3.5 L drained. Since then, she states she has had increased weakness and anorexia. Really only tolerating popsicles and ice cream as well as fluids. She reports abdominal pain and dyspnea when sitting up straight with some relief of the symptoms when lying down. She denies any nausea, vomiting. Has chronic diarrhea but denies any hematochezia or melena. No fevers or chills. She states her last alcohol use was a small amount of champagne on Tuesday and she does desire rehab. She states she has been smoking about 1 pack cigarettes per day but since she has been feeling unwell has cut back to 4 cigarettes daily and desires to quit altogether. Denies any illicit drug use. Since arrival, blood pressures have been soft with BP 101/56 on admission though appears to have low blood pressure at baseline likely secondary to her cirrhosis. There is leukocytosis of 13.9. Stable normocytic anemia 11.2/30.4%. Platelets 129. PT 17.1, INR 1.4. Creatinine 4.43, baseline around 1.6. BUN 63. Sodium 128, CO2 17, electrolytes otherwise normal. Total bilirubin 15.5. AST 118, ALT 30, alkaline phosphatase 302. CRP 4.29. Albumin 2.1. Diagnostic paracentesis performed bedside with peritoneal WBC of 0.026 x 10^3 with 13% neutrophils. CXR shows bronchial wall thickening possibly infectious versus inflammatory etiology. In the ED, has received 1 L IV NS and albumin. Review of Systems Review of Systems: General: No fevers, malaise, unintentional weight loss. +general weakness HEENT: No blurred vision, diplopia. No sore throat, nasal congestion, rhinorrhea, sinus pain, ear pain Cardiovascular: No chest pain, palpitations, or leg edema Respiratory: +dyspnea. No wheezing, cough GI: +abd pain, +anorexia. No nausea, vomiting, diarrhea, constipation, melena, hematochezia : No dysuria, hematuria, increased urinary frequency, decreased urinary output MSK: No myalgia, back pain Neuro: No headaches, weakness, paresthesias Skin: No rashes or lesions [facility] Medical History Thrombocytopenia Portal venous hypertension Abdominal ascites Hyperlipidemia GERD (gastroesophageal reflux disease) Hypertension Cirrhosis Alcohol abuse Surgical History Hx of section History of back surgery Hx of esophagogastroduodenoscopy Hx of colonoscopy Social History Alcohol intake: former Patient Tobacco Use Status: Tobacco use Unknown Tobacco use type: Cigarette Smoked in Last 30 Days: Yes Use of substances other than those prescribed or required for medical reasons: No Advance Directives: No Advance Directives Information Provided: No Patient : No Meds Allergies Allergy/AdvReac Type Severity Reaction Status Date / Time codeine [CODEINE] Allergy Unknown NAUSEA Verified 06/06/23 17:52 Active Medications: Current Medications Albumin Human (Kedbumin 25 %) 100 mls @ 100 mls/hr IV Q1H JOSE ALFREDO Stop: 06/06/23 22:14 Last Admin: 06/06/23 20:36 Dose: 100 mls/hr Physical Exam Vital Signs and Narrative: Vital Signs: Last Vital Signs Temp 97.7 F 06/06/23 18:16 Pulse 81 06/06/23 18:05 Resp 18 06/06/23 18:05 BP 90/42 L 06/06/23 18:05 Pulse Ox 99 06/06/23 18:05 O2 Del Method Room Air 06/06/23 17:50 BMI result Body Mass Index 23.2 Constitutional - Awake and Alert, No apparent distress Eyes - PERRLA, EOMI, +scleral icterus Cardiovascular - S1S2, RRR, No edema Respiratory - Normal lung expansion, Normal respiratory effort, No respiratory distress, CTA bilaterally Gastrointestinal - RUQ ttp with voluntary guarding, negative rivera sign. softly distended, positive fluid wave, +BS; No rebound Extremities - no calf tenderness bilaterally, no swelling Skin - Warm/Dry. +Jaundice Neurological - Alert & oriented x3 Psychological - Appropriate affect Results Labs 06/06/23 18:10 06/06/23 18:10 Labs: Laboratory Results - last 24 hr 06/06/23 06/06/23 18:10 19:42 MCV 95.6 MCH 35.2 H MCHC 36.8 H RDW 17.1 H Plt Count 129 L MPV 11.9 Immature Gran % (Auto) 1.1 H Neut % (Auto) 84.6 H Lymph % (Auto) 7.6 L [place] % (Auto) 5.8 Eos % (Auto) 0.6 Baso % (Auto) 0.3 Lymph # (Auto) 1.1 L [place] # (Auto) 0.8 Eos # (Auto) 0.1 Baso # (Auto) 0.0 Abs Immat Gran (auto) 0.15 H Absolute Neuts (auto) 11.7 H Absolute Nucleated RBC 0.030 H Nucleated RBC % (auto) 0.2 PT 17.1 H INR 1.4 H APTT 44.2 H Anion Gap 17 Estim Creat Clear Calc 10.5 Estimated GFR 10 Random Glucose 165 H Calcium 8.0 L Total Bilirubin 15.5 H AST 118 H ALT 30 Alkaline Phosphatase 302 H C-Reactive Protein 4.29 H Total Protein 6.4 L Albumin 2.1 L Lipase 32 Peritoneal WBC 0.026 Peritoneal RBC < 0.002 Periton Neutrophils 13 Periton Lymphocytes 5 Peritoneal Monocytes 24 Peritoneal Eosinophils 0 Peritoneal Basophils 0 Peritoneal Other Cells 58 Imaging Radiologist's Impressions: Impressions Chest X-Ray 06/06/23 18:50 IMPRESSION: Bronchial wall thickening may be infectious and/or inflammatory in etiology. Assessment and Plan (1) Cirrhosis of liver with ascites: Status: Acute (2) Jaundice: Status: Acute (3) Acute kidney injury: Status: Acute Plan 63-year-old female with history of alcoholic cirrhosis complicated by portal vein hypertension and ascites, alcohol use disorder, gout, GERD admitted for further management of acute kidney injury #Acute kidney injury- likely prerenal due to hypovolemia -creat 4.43, baseline 1.6. BUN 63 -given 1 L IV NS in the ED as well as albumin -hold on additional IV fluids. Tolerating p.o. -follow renal function, lytes -avoid nephrotoxins -if no improvement, consider Nephrology consult # decompensated alcoholic cirrhosis complicated by ascites, portal vein hypertension -ultrasound RUQ ordered given right upper quadrant tenderness to palpation and hyperbilirubinemia -diagnostic paracentesis in the ED negative for SBP -therapeutic paracentesis ordered for tomorrow with IR. NPO after midnight -gastroenterology consult # chronic hyperbilirubinemia with jaundice -likely related to decompensated cirrhosis. Less likely alcoholic hepatitis given ALT is not elevated. However, a GI consult placed -follow liver function # chronic thrombocytopenia -due to cirrhosis # chronic hyponatremia -also likely related to cirrhosis # acute leukocytosis -etiology unclear -she is afebrile, CXR unremarkable. No SBP. No evidence of infection -RUQ ultrasound pending # alcohol use disorder -reports last alcoholic beverage was [place] but desires rehab -addiction medicine consult placed # hypotension -related to above. Not sepsis. Given IVF and albumin. Monitor BP # gout -continue allopurinol # GERD -continue PPI DVT prophylaxis-S CPs Full code Patient requires inpatient stay at least 2 midnights for management of acute kidney injury requiring IV fluid resuscitation, IV albumin, and close monitoring of renal function electrolyte levels as well as expert consultation Quality Stroke Does the patient have a stroke diagnosis?: No VTE Prior VTE?: No VTE Risk Level:: Medical - moderate - high VTE Device Contraindication: N/A - Device Ordered VTE Drug Contraindication: Treatment Not Indicated
[2023-06-06 22:15] VITALS: BP 98/52; PULSE 75; RESP 19; TEMP 36.5; O2SAT 95
[2023-06-06 22:32] LABS: Bilirubin Direct 12.1 mg/dL (0.0-0.5)
[2023-06-07] MEDS: 0.9 % Sodium Chloride Flush 3 ML SYRINGE IVFLUSH ×4 (01:00→22:18)
--- NOTE | 2023-06-07 01:05 | PM.EVENT ---
Event Note Date of Service: 06/07/23 Event Note: Ultrasound of the abdomen with gallbladder mass. Will obtain CT scan and consult General surgery. Time Spent With Patient Time: Total time managing care of this patient today ____ minutes.
[2023-06-07 02:10] VITALS: BP 98/49; PULSE 78; RESP 17; TEMP 36.8; O2SAT 97
[2023-06-07 05:05] LABS: Basophils Percent Auto 0.3 % (0-2); Eosinophils Absolute Auto 0.2 X10*3/uL (0.0-0.4); Hematocrit 24.3 % (37.0-47.0); Hemoglobin 8.9 g/dl (12.0-16.0); Imm Gran Abs Auto 0.04 X10*3/uL (0.00-0.03); Imm Gran Pct Auto 0.4 % (0.0-0.4); Lymphocytes Absolute Auto 1.6 X10*3/uL (1.2-4.9); Lymphocytes Percent Auto 16.3 % (20-40); Mean Corpuscular HGB Conc 36.6 g/dl (31.0-35.0); Mean Corpuscular Hemoglobin 34.4 pg (27.0-33.0); Mean Corpuscular Volume 93.8 fL (80.0-98.0); Mean Platelet Volume 12.2 fL (9.4-12.3); Monocytes Absolute Auto 0.8 X10*3/uL (0.1-1.2); Monocytes Percent Auto 8.3 % (2-11); NRBC Pct Auto 0.2 /100WBC (0.0-0.2); Neutrophils Absolute Auto 6.9 x10*3/uL (2.0-8.3); Neutrophils Percent Auto 72.7 % (45-73); Red Blood Count 2.59 X10*6/uL (4.20-5.50); White Blood Count 9.5 X10*3/uL (4.8-10.8)
[2023-06-07 05:10] LABS: MANUAL DIFF FLAG SCAN; Platelet Count 88 X10*3/uL (160-400)
[2023-06-07 05:19] LABS: Anion Gap 16 (12-20); Blood Urea Nitrogen 62 mg/dL (9-16); Calcium 8.1 mg/dL (8.4-10.2); Carbon Dioxide 18 mmol/L (22-29); Chloride 103 mmol/L (96-108); Creatinine Clr Calc Pharmacy 11.1; Estimated Glomerular Filt Rate 11; Glucose Random 106 mg/dL (60-115); Potassium 4.7 mmol/L (3.3-5.1); Sodium 132 mmol/L (135-145)
[2023-06-07 05:24] LABS: SLIDE REVIEW VERIFIED
[2023-06-07 05:57] VITALS: BP 102/55; PULSE 81; RESP 13; TEMP 36.8; O2SAT 99
--- NOTE | 2023-06-07 07:30 | PC.NURSE ---
Patient is alert and oriented, respirations even and unlabored, wheezes auscultated in right lower lobe, bowel sounds present, abd soft and distended. patient reports no pain at this time.
--- NOTE | 2023-06-07 08:07 | MHC.EDTECH ---
This pct attempted to collect a urine sample but the patient deficated instead of giving urine will try again soon patient states. RN Aware
--- NOTE | 2023-06-07 08:21 | P.CONGS_ITS ---
History of Present Illness Consult details Consult date: 06/07/23 Narrative: Patient is a 63-year-old female with advanced cirrhosis of the liver complicated with portal hypertension, jaundice and ascites, the latter of which requires periodic paracentesis. On her presentation today, she underwent among other studies , ultrasound of the abdomen which was noteworthy for a mass of the gallbladder among other findings. Patient has advanced liver disease as noted above with a total bilirubin of 15.5 Chart was reviewed and patient evaluated Patient underwent ER paracentesis yesterday. PMFSH Past Medical History Medical History Thrombocytopenia Portal venous hypertension Abdominal ascites Hyperlipidemia GERD (gastroesophageal reflux disease) Hypertension Cirrhosis Alcohol abuse Surgical History Surgical History Hx of section History of back surgery Hx of esophagogastroduodenoscopy Hx of colonoscopy Social History Social History Alcohol intake: former Patient Tobacco Use Status: Tobacco use Unknown Tobacco use type: Cigarette Smoked in Last 30 Days: Yes Use of substances other than those prescribed or required for medical reasons: No Advance Directives: No Advance Directives Information Provided: No Nutrition Risks: No Nutritional Risk Patient : No Meds Allergies Allergy/AdvReac Type Severity Reaction Status Date / Time codeine [CODEINE] Allergy Unknown NAUSEA Verified 06/06/23 17:52 Active Medications: Current Medications Acetaminophen (Acetaminophen 325 Mg Tablet) 650 mg PO Q6H PRN PRN Reason: Pain, Mild (Pain Scale 1-3) Ondansetron HCl (Ondansetron Hcl 4 Mg/2 Ml Vial) 4 mg IVPUSH Q8H PRN PRN Reason: Nausea and Vomiting Senna (Sennosides 8.6 Mg Tablet) 17.2 mg PO BEDTIME PRN PRN Reason: Constipation Sodium Chloride (0.9 % Sodium Chloride Flush 3 Ml Syringe) 3 ml IVFLUSH QSHIFT [facility] Last Admin: 06/07/23 07:33 Dose: 3 ml Home Medications ?Medication ?Instructions ?Recorded ?Confirmed ?Last Taken ?Type allopurinol 300 mg tablet 300 mg PO DAILY 06/07/23 Unknown History amlodipine 5 mg tablet 5 mg PO DAILY 06/07/23 Unknown History furosemide 20 mg tablet 20 mg PO DAILY 06/07/23 Unknown History metoprolol succinate 50 mg 50 mg PO DAILY 06/07/23 Unknown History tablet,extended release 24 hr omeprazole 20 mg capsule,delayed 20 mg PO DAILY 06/07/23 Unknown History release spironolactone 50 mg tablet 50 mg PO DAILY 06/07/23 Unknown History Physical Exam 2 Vital Signs: Vital Signs: Last Vital Signs Temp 98.3 F 06/07/23 05:57 Pulse 81 06/07/23 05:57 Resp 13 06/07/23 05:57 BP 102/55 L 06/07/23 05:57 Pulse Ox 99 06/07/23 05:57 O2 Del Method Room Air 06/07/23 05:57 BMI result Body Mass Index 23.2 Const: Other: Very ill-appearing patient physiologically older than her stated age Eyes: Other: Icteric GI: Other: Patient is status post paracentesis still has a very protuberant distended abdomen. Mild right upper quadrant tenderness. No evidence of guarding, rebound, or rigidity. Results Labs 06/07/23 04:34 06/07/23 04:34 Labs: Abnormal lab results 06/06/23 06/07/23 Range/Units 18:10 04:34 WBC 13.9 H (4.8-10.8) X10*3/uL RBC 3.18 L 2.59 L (4.20-5.50) X10*6/uL Hgb 11.2 L 8.9 L D (12.0-16.0) g/dl Hct 30.4 L 24.3 L D (37.0-47.0) % MCH 35.2 H 34.4 H (27.0-33.0) pg MCHC 36.8 H 36.6 H (31.0-35.0) g/dl RDW 17.1 H 17.0 H (11.0-16.0) % Plt Count 129 L 88 L D (160-400) X10*3/uL Immature Gran % (Auto) 1.1 H (0.0-0.4) % Neut % (Auto) 84.6 H (45-73) % Lymph % (Auto) 7.6 L 16.3 L (20-40) % Lymph # (Auto) 1.1 L (1.2-4.9) X10*3/uL Abs Immat Gran (auto) 0.15 H 0.04 H (0.00-0.03) X10*3/uL Absolute Neuts (auto) 11.7 H (2.0-8.3) x10*3/uL Absolute Nucleated RBC 0.030 H 0.020 H (0.0-0.012) X10*3/uL PT 17.1 H (11.1-13.3) SEC INR 1.4 H (0.9-1.1) APTT 44.2 H (26.0-36.8) SEC Sodium 128 L 132 L (135-145) mmol/L Carbon Dioxide 17 L 18 L (22-29) mmol/L BUN 63 H 62 H (9-16) mg/dL Creatinine 4.43 H* 4.24 H* (0.5-1.4) mg/dL Random Glucose 165 H (60-115) mg/dL Calcium 8.0 L 8.1 L (8.4-10.2) mg/dL Total Bilirubin 15.5 H (0.0-1.0) mg/dL Direct Bilirubin 12.1 H (0.0-0.5) mg/dL AST 118 H (5-31) U/L Alkaline Phosphatase 302 H (39-117) U/L C-Reactive Protein 4.29 H (< or = 0.50) mg/dL Total Protein 6.4 L (6.5-8.0) g/dL Albumin 2.1 L (3.5-5.0) g/dL Short CBC 06/06/23 06/07/23 Range/Units 18:10 04:34 WBC 13.9 H 9.5 (4.8-10.8) X10*3/uL Hgb 11.2 L 8.9 L D (12.0-16.0) g/dl Hct 30.4 L 24.3 L D (37.0-47.0) % Plt Count 129 L 88 L D (160-400) X10*3/uL BMP 06/06/23 06/07/23 18:10 04:34 Sodium 128 L 132 L Potassium 4.8 D 4.7 Chloride 99 103 Carbon Dioxide 17 L 18 L BUN 63 H 62 H Creatinine 4.43 H* 4.24 H* Calcium 8.0 L 8.1 L Liver Function 04/08/24 Range/Units 18:10 Total Bilirubin 15.5 H (0.0-1.0) mg/dL Direct Bilirubin 12.1 H (0.0-0.5) mg/dL AST 118 H (5-31) U/L ALT 30 (0-31) U/L Alkaline Phosphatase 302 H (39-117) U/L Albumin 2.1 L (3.5-5.0) g/dL All other labs normal. Assessment and Plan (1) Cirrhosis of liver with ascites: Status: Acute (2) Jaundice: Status: Acute (3) Gallbladder mass: Status: Acute Plan Because of the patient's very advanced liver disease, is very unlikely that she would be a surgical candidate for any type of of oncologic resection of her gallbladder/liver should this prove to be an malignancy. Also I am unsure if she would be a candidate for any kind of liver transplant. For diagnostic purposes, interventional radiologic biopsy of gallbladder mass can be undertaken and further interventions and studies directed based on the results of this. Order was put in for this procedure Procedures Date of Service Date of Service: 06/07/23
--- NOTE | 2023-06-07 08:48 | P.PNIM_ITS ---
Subjective Subjective Date of Service: 06/07/23 Review of Systems Follow up CELESTINE, liver cirrhosis Physical Exam 2 Vital Signs: Vital Signs: Last Vital Signs Temp 98.3 F 06/07/23 05:57 Pulse 81 06/07/23 05:57 Resp 13 06/07/23 05:57 BP 102/55 L 06/07/23 05:57 Pulse Ox 99 06/07/23 05:57 O2 Del Method Room Air 06/07/23 05:57 BMI result Body Mass Index 23.2 Appearing in no acute distress lung sounds are clear to auscultation heart regular rate rhythm, clear S1, S2 positive bowel sounds, abdomen is soft, nontender neuro patient is alert x3, no focal deficits Objective Data Active Medications Acetaminophen (Acetaminophen 325 Mg Tablet) 650 mg PO Q6H PRN PRN Reason: Pain, Mild (Pain Scale 1-3) Ondansetron HCl (Ondansetron Hcl 4 Mg/2 Ml Vial) 4 mg IVPUSH Q8H PRN PRN Reason: Nausea and Vomiting Senna (Sennosides 8.6 Mg Tablet) 17.2 mg PO BEDTIME PRN PRN Reason: Constipation Sodium Chloride (0.9 % Sodium Chloride Flush 3 Ml Syringe) 3 ml IVFLUSH [facility] Last Admin: 06/07/23 07:33 Dose: 3 ml Documented By: KALYANI Labs 06/07/23 04:34 06/07/23 04:34 Labs: Laboratory Results - last 24 hr 06/06/23 06/06/23 06/07/23 18:10 19:42 04:34 MCV 95.6 93.8 MCH 35.2 H 34.4 H MCHC 36.8 H 36.6 H RDW 17.1 H 17.0 H Plt Count 129 L 88 L D MPV 11.9 12.2 Immature Gran % (Auto) 1.1 H 0.4 Neut % (Auto) 84.6 H 72.7 Lymph % (Auto) 7.6 L 16.3 L [place] % (Auto) 5.8 8.3 Eos % (Auto) 0.6 2.0 Baso % (Auto) 0.3 0.3 Lymph # (Auto) 1.1 L 1.6 [place] # (Auto) 0.8 0.8 Eos # (Auto) 0.1 0.2 Baso # (Auto) 0.0 0.0 Abs Immat Gran (auto) 0.15 H 0.04 H Absolute Neuts (auto) 11.7 H 6.9 Absolute Nucleated RBC 0.030 H 0.020 H Nucleated RBC % (auto) 0.2 0.2 Smear Tech's Comments VERIFIED PT 17.1 H INR 1.4 H APTT 44.2 H Anion Gap 17 16 Estim Creat Clear Calc 10.5 11.1 Estimated GFR 10 11 Random Glucose 165 H 106 Calcium 8.0 L 8.1 L Total Bilirubin 15.5 H Direct Bilirubin 12.1 H AST 118 H ALT 30 Alkaline Phosphatase 302 H C-Reactive Protein 4.29 H Total Protein 6.4 L Albumin 2.1 L Lipase 32 Peritoneal WBC 0.026 Peritoneal RBC < 0.002 [place] Neutrophils 13 [place] Lymphocytes 5 Peritoneal Monocytes 24 Peritoneal Eosinophils 0 Peritoneal Basophils 0 Peritoneal Other Cells 58 Microbiology Microbiology Results: Microbiology 06/06/23 19:42 Gram Stain - Final Ascites Fluid Assessment and Plan (1) Gallbladder mass: Status: Acute Plan 63-year-old female with history of alcoholic cirrhosis complicated by portal vein hypertension and ascites, alcohol use disorder, gout, GERD admitted for further management of acute kidney injury Acute kidney injury- likely prerenal due to hypovolemia creat 4.24, baseline 1.6. given 1 L IV NS in the ED as well as albumin hold on additional IV fluids. Tolerating p.o. follow renal function, lytes avoid nephrotoxins if no improvement, consider Nephrology consult Decompensated alcoholic cirrhosis complicated by ascites, portal vein hypertension ultrasound RUQ ordered given right upper quadrant tenderness to palpation and hyperbilirubinemia diagnostic paracentesis in the ED negative for SBP therapeutic paracentesis ordered for today with IR. gastroenterology consult Chronic hyperbilirubinemia with jaundice likely related to decompensated cirrhosis. Less likely alcoholic hepatitis given ALT is not elevated. follow liver function Chronic thrombocytopenia due to cirrhosis Chronic hyponatremia also likely related to cirrhosis Acute leukocytosis etiology unclear she is afebrile, CXR unremarkable. No SBP. No evidence of infection RUQ ultrasound with cirrhotic appearing liver with ascites, enlarged gallbladder mass Alcohol use disorder reports last alcoholic beverage was Easter Tuesday but desires rehab addiction medicine consult placed Hypotension related to above. Not sepsis. Given IVF and albumin. Monitor BP gout continue allopurinol GERD continue PPI DVT prophylaxis-SCD boots Attending Dr. Villatoro Full code continue hospital stay for management of acute kidney injury requiring IV fluid resuscitation, IV albumin, and close monitoring of renal function electrolyte levels as well as expert consultation Quality Stroke Does the patient have a stroke diagnosis?: No VTE Prior VTE?: No VTE Risk Level:: Medical - moderate - high VTE Device Contraindication: N/A - Device Ordered VTE Drug Contraindication: Treatment Not Indicated
--- NOTE | 2023-06-07 09:06 | PHA.MEDREC ---
Pharmacy Consult ? Medication Reconciliation Pharmacy has completed the medication reconciliation. Patient unable to name medictaions but did specify indications i.e. two blood pressure medication, two water pills, omeprazole, and something for gout. Also noted she takes magnesium for her hands but it has not been helping
[2023-06-07 09:11] VITALS: BP 98/51; PULSE 77; RESP 13; O2SAT 97
--- NOTE | 2023-06-07 10:14 | MHC.CM.PN ---
Attempted to meet with patient in regards to discharge planning. Patient currently sleeping. No family present. Will attempt to meet again. Continue to monitor for d/c needs.
[2023-06-07 10:47] LABS: Appearance Urine Cloudy; Color Urine Dark Yellow; Glucose Urine UA Negative (Negative); Leukocyte Esterase Urine Trace (Negative); Nitrite Urine Negative (Negative); PH 5.5 (5.0-9.0); UMIC TRIGGER UACC YES; Urine Blood Negative (Negative); Urine Ketones Negative (Negative); Urine Protein Negative (Neg-Trace)
[2023-06-07 11:11] LABS: Bacteria Urine 2+ (None Seen); RBC Urine 0-2 /HPF (0-2); UACC Culture Trigger YES
[2023-06-07] MEDS: Barium Sulfate Oral (Mocha) 450 ML ORAL.SUSP 900 ML PO (11:49)
[2023-06-07 14:13] LABS: Anion Gap 19 (12-20); Blood Urea Nitrogen 60 mg/dL (9-16); Calcium 8.3 mg/dL (8.4-10.2); Carbon Dioxide 18 mmol/L (22-29); Chloride 100 mmol/L (96-108); Creatinine Clr Calc Pharmacy 11.8; Estimated Glomerular Filt Rate 11; Glucose Random 100 mg/dL (60-115); Potassium 5.1 mmol/L (3.3-5.1); Sodium 132 mmol/L (135-145)
--- NOTE | 2023-06-07 14:46 | P.CONNP_ITS ---
History of Present Illness Reason for Consult Consult date: 06/09/23 Chief Complaint Chief complaint: weakness, anorexia, ascites History of Present Illness Narrative: 63-year-old female with history of alcoholic cirrhosis complicated by portal vein hypertension and ascites, alcohol use disorder, gout, hypertension, GERD presented to the ED earlier today for evaluation of anorexia and general weakness at the recommendation of her firepot operator and tender, Dr. Reddy. She underwent a paracentesis last Tuesday and had 3.5 L drained. Since then, she states she has had increased weakness and anorexia. Really only tolerating popsicles and ice cream as well as fluids. She reports abdominal pain and dyspnea when sitting up straight with some relief of the symptoms when lying down. She denies any nausea, vomiting. Has chronic diarrhea but denies any hematochezia or melena. No fevers or chills. She states her last alcohol use was a small amount of champagne on Tuesday and she does desire rehab. She states she has been smoking about 1 pack cigarettes per day but since she has been feeling unwell has cut back to 4 cigarettes daily and desires to quit altogether. Denies any illicit drug use. Review of Systems Review of Systems General: No fevers, malaise, unintentional weight loss. +general weakness HEENT: No blurred vision, diplopia. No sore throat, nasal congestion, rhinorrhea, sinus pain, ear pain Cardiovascular: No chest pain, palpitations, or leg edema Respiratory: +dyspnea. No wheezing, cough GI: +abd pain, +anorexia. No nausea, vomiting, diarrhea, constipation, melena, hematochezia : No dysuria, hematuria, increased urinary frequency, decreased urinary output MSK: No myalgia, back pain Neuro: No headaches, weakness, paresthesias Skin: No rashes or lesions PMFSH Past Medical History Medical History Thrombocytopenia Portal venous hypertension Abdominal ascites Hyperlipidemia GERD (gastroesophageal reflux disease) Hypertension Cirrhosis Alcohol abuse Surgical History Surgical History Hx of section History of back surgery Hx of esophagogastroduodenoscopy Hx of colonoscopy Social History Social History Household Members: None Housing: Other Do you presently have visiting nurse or other home services: No Alcohol intake: former Patient Tobacco Use Status: Current everyday Tobacco user Tobacco use type: Cigarette Cigarette Packs Per Day: 1 Cigarettes Per Day: 20.0 Years Smoked: 40 Second Hand Smoke Exposure: No service: No Meds Allergies Allergy/AdvReac Type Severity Reaction Status Date / Time codeine [CODEINE] Allergy Unknown NAUSEA Verified 06/06/23 17:52 Active Medications: Current Medications Acetaminophen (Acetaminophen 325 Mg Tablet) 650 mg PO Q6H PRN PRN Reason: Pain, Mild (Pain Scale 1-3) Ondansetron HCl (Ondansetron Hcl 4 Mg/2 Ml Vial) 4 mg IVPUSH Q8H PRN PRN Reason: Nausea and Vomiting Senna (Sennosides 8.6 Mg Tablet) 17.2 mg PO BEDTIME PRN PRN Reason: Constipation Sodium Chloride (0.9 % Sodium Chloride Flush 3 Ml Syringe) 3 ml IVFLUSH [facility] Last Admin: 06/07/23 07:33 Dose: 3 ml Home Medications ?Medication ?Instructions ?Recorded ?Confirmed ?Last Taken ?Type allopurinol 300 mg tablet 300 mg PO DAILY 06/07/23 06/07/23 Unknown History amlodipine 5 mg tablet 5 mg PO DAILY 06/07/23 06/07/23 Unknown History furosemide 20 mg tablet 20 mg PO DAILY 06/07/23 06/07/23 Unknown History magnesium 250 mg tablet 250 mg PO DAILY 06/07/23 06/07/23 Unknown History metoprolol succinate 50 mg 50 mg PO DAILY 06/07/23 06/07/23 Unknown History tablet,extended release 24 hr omeprazole 20 mg capsule,delayed 20 mg PO DAILY 06/07/23 06/07/23 Unknown History release spironolactone 50 mg tablet 50 mg PO DAILY 06/07/23 06/07/23 Unknown History Physical Exam Vital Signs: Last Vital Signs Temp 98.3 F 06/07/23 05:57 Pulse 77 06/07/23 09:11 Resp 13 06/07/23 09:11 BP 98/51 L 06/07/23 09:11 Pulse Ox 97 06/07/23 09:11 O2 Del Method Room Air 06/07/23 09:11 BMI result Body Mass Index 23.2 Appearing in no acute distress lung sounds are clear to auscultation heart regular rate rhythm, clear S1, S2 positive bowel sounds, abdomen is soft, nontender neuro patient is alert x3, no focal deficits Results Lab Results 06/09/23 09:40 06/09/23 09:40 Lab results: Chemistry 06/06/23 06/07/23 06/07/23 18:10 04:34 13:54 Sodium 128 L 132 L 132 L Potassium 4.8 D 4.7 5.1 Carbon Dioxide 17 L 18 L 18 L BUN 63 H 62 H 60 H Creatinine 4.43 H* 4.24 H* 3.96 H Calcium 8.0 L 8.1 L 8.3 L Hematology 06/06/23 06/07/23 18:10 04:34 WBC 13.9 H 9.5 Hgb 11.2 L 8.9 L D Plt Count 129 L 88 L D Urinalysis 06/07/23 10:38 Urine Color Dark Yellow Urine Appearance Cloudy Urine pH 5.5 Ur Specific [place] 1.020 Urine Protein Negative Urine Glucose (UA) Negative Urine Ketones Negative Urine Blood Negative Urine Nitrite Negative Ur Leukocyte Esterase Trace H Urine RBC 0-2 Urine WBC 6-10 H Ur Squamous Epith Cells 6-10 Hyaline Casts 3-5 Assessment and Plan (1) Acute kidney injury: Status: Acute Plan CELESTINE superimposed on CKD in a setting of Cirrhosis Clinically volume depleted. Cannot r/o HRS yet Suggest to hold diuretics Check urine Na/Cr Optimize BP and avoid hypotension REstrict hypotonic fluids( PO water) to correct hyponatremia Paracenthesis as needed Watch urine output No indication for dialysis yet Procedures Date of Service Date of Service: 06/09/23
[2023-06-07] MEDS: prednisoLONE sodium phosphate 15 MG/5 ML SOLUTION 40 MG PO (17:07)
[2023-06-07 18:49] VITALS: BP 91/43; PULSE 83; RESP 16; TEMP 36.9; O2SAT 98
[2023-06-07 19:14] LABS: Albumin Peritoneal Fluid 0.4
[2023-06-07 19:16] LABS: Amylase Peritoneal Fluid 12; LDH Peritoneal Fluid 28
[2023-06-07 21:55] VITALS: BP 108/55; PULSE 87; RESP 16; TEMP 36.6; O2SAT 98
[2023-06-07 22:03] VITALS: BMI 23.7
[2023-06-08 02:58] VITALS: BP 101/59; PULSE 85; RESP 16; TEMP 36.4; O2SAT 96
--- NOTE | 2023-06-08 03:52 | CONS_ITS ---
DATE OF SERVICE: 06/07/2023 REFERRING PHYSICIAN: BRADLEY Murray REASON FOR CONSULTATION: Cirrhosis with ascites and jaundice. HISTORY OF PRESENT ILLNESS: Patient is a pleasant 63-year-old woman known to me from prior evaluation. She has a history of alcoholic liver disease and was admitted to the hospital after presenting to the emergency department yesterday with complaints of anorexia and general weakness. She has a history of alcohol abuse and has been on diuretics because of ascites, which was tapped last week. She was found to have elevation of her BUN and creatinine and admitted to the hospital. She denies drinking any alcohol recently. She has been jaundiced but has had no fevers or chills. She was evaluated in the emergency department where laboratory studies showed elevated liver function tests and creatinine. She had been seen in consultation by Nephrology. Also noted on her evaluation was an abnormal gallbladder with a mass that is increased in size. She has been seen in consultation by General Surgery and a CT biopsy has been ordered. PAST MEDICAL HISTORY: 1. Alcoholic hepatitis. 2. Ascites/portal venous hypertension. 3. Thrombocytopenia. 4. Hypertension. 5. Hyperlipidemia. 6. Gastroesophageal reflux disease. CURRENT MEDICATIONS: Her current medication list is reviewed in the chart. ALLERGIES: CODEINE. FAMILY HISTORY: This is reviewed with the patient and is noncontributory. SOCIAL HISTORY: There is no current tobacco, alcohol, or substance abuse by her report. REVIEW OF SYSTEMS: SKIN: No pruritus. HEENT: Negative. CARDIOPULMONARY: She denies shortness of breath or chest pain. GASTROINTESTINAL: As above. GENITOURINARY: Negative. NEUROPSYCHIATRIC: Negative. PHYSICAL EXAMINATION: GENERAL: Shows a pleasant female. SKIN: Icteric. HEENT: Shows no scleral icterus. NECK: Without lymphadenopathy or thyromegaly. LUNGS: Clear. HEART: Shows regular rate and rhythm. S1, S2. No murmur. ABDOMEN: Soft without focal masses or tenderness. Bowel sounds are present. No organomegaly is noted. EXTREMITIES: Show trace edema. DIAGNOSTIC DATA: Laboratory data and CT scan results are reviewed. IMPRESSION: Alcoholic hepatitis with ascites. She is scheduled for paracentesis tomorrow for improvement in her ascites. At this point, her diuretics are on hold due to her elevated BUN and creatinine. She does not appear to have any localizing infection symptoms. Therefore, I would recommend a trial of prednisolone 40 mg daily over the next week to see if this helps her liver function parameters. I discussed treatment with her including risks and benefits. She is aware of these and agrees to proceed. Thanks for asking me to see her. I will follow her in the hospital with you. MD KAYLYNN Gonzalez/RORY / [phone]
[2023-06-08 07:52] VITALS: BP 119/59; PULSE 90; RESP 18; TEMP 36.4; O2SAT 99
--- NOTE | 2023-06-08 07:53 | HO.PM.IMPN ---
Subjective Subjective Date of Service: 06/08/23 Review of Systems Follow up CELESTINE, liver cirrhosis better today no pain Physical Exam Vital Signs: Vital Signs: Last Vital Signs Temp 97.5 F 06/08/23 02:58 Pulse 85 06/08/23 02:58 Resp 16 06/08/23 02:58 BP 101/59 L 06/08/23 02:58 Pulse Ox 96 06/08/23 02:58 O2 Del Method Room Air 06/08/23 02:58 BMI result Body Mass Index 23.7 Appearing in no acute distress lung sounds are clear to auscultation heart regular rate rhythm, clear S1, S2 positive bowel sounds, abdomen is soft, nontender, distended abd neuro patient is alert x3, no focal deficits Objective Data Active Medications Acetaminophen (Acetaminophen 325 Mg Tablet) 650 mg PO Q6H PRN PRN Reason: Pain, Mild (Pain Scale 1-3) Metoprolol Succinate (Metoprolol Succinate Er 50 Mg Tab.Er.24h) 50 mg PO DAILY [facility]; Protocol Non-Formulary Medication (Magnesium) 250 mg PO DAILY [facility] Omeprazole (Omeprazole 20 Mg Capsule.Dr) 20 mg PO DAILY [facility] Ondansetron HCl (Ondansetron Hcl 4 Mg/2 Ml Vial) 4 mg IVPUSH Q8H PRN PRN Reason: Nausea and Vomiting Prednisolone Sodium Phosphate (Prednisolone Sodium Phosphate 15 Mg/5 Ml Solution) 40 mg PO DAILY [facility] Last Admin: 06/07/23 17:07 Dose: 40 mg Documented By: RJFETE Senna (Sennosides 8.6 Mg Tablet) 17.2 mg PO BEDTIME PRN PRN Reason: Constipation Sodium Chloride (0.9 % Sodium Chloride Flush 3 Ml Syringe) 3 ml IVFLUSH QSHIFT [facility] Last Admin: 06/07/23 22:18 Dose: 3 ml Documented By: HOLLYRISM Labs 06/07/23 04:34 06/07/23 13:54 Labs: Laboratory Results - last 24 hr 06/06/23 06/07/23 06/07/23 19:42 10:38 13:54 Anion Gap 19 Estim Creat Clear Calc 11.8 Estimated GFR 11 Random Glucose 100 Calcium 8.3 L Urine Color Dark Yellow Urine Appearance Cloudy Urine pH 5.5 Ur Specific [place] 1.020 Urine Protein Negative Urine Glucose (UA) Negative Urine Ketones Negative Urine Blood Negative Urine Nitrite Negative Ur Leukocyte Esterase Trace H Urine RBC 0-2 Urine WBC 6-10 H Ur Squamous Epith Cells 6-10 Urine Bacteria 2+ Hyaline Casts 3-5 Peritoneal Albumin 0.4 Peritoneal LDH 28 Peritoneal Amylase 12 Microbiology Microbiology Results: Microbiology 06/06/23 19:42 Gram Stain - Final Ascites Fluid Anaerobic Culture - Preliminary No growth to date. Body Fluid Culture - Preliminary No growth to date. Assessment and Plan (1) Gallbladder mass: Status: Acute Plan 63-year-old female with history of alcoholic cirrhosis complicated by portal vein hypertension and ascites, alcohol use disorder, gout, GERD admitted for further management of acute kidney injury Acute kidney injury- likely prerenal due to hypovolemia creat 3.96, baseline 1.6. s/p given 1 L IV NS and albumin follow renal function, lytes avoid nephrotoxins Nephrology following Decompensated alcoholic cirrhosis complicated by ascites, portal vein hypertension ultrasound RUQ ordered given right upper quadrant tenderness to palpation and hyperbilirubinemia diagnostic paracentesis in the ED negative for SBP gastroenterology consult>Prednisolone 40 mg daily for one week to see of liver function parameters improve plan for paracentesis today Chronic hyperbilirubinemia with jaundice likely related to decompensated cirrhosis. Less likely alcoholic hepatitis given ALT is not elevated. follow liver function Chronic thrombocytopenia due to cirrhosis Chronic hyponatremia due to cirrhosis Acute leukocytosis. Resolved etiology unclear afebrile, CXR unremarkable. No SBP. No evidence of infection RUQ ultrasound with cirrhotic appearing liver with ascites, enlarged gallbladder mass Alcohol use disorder reports last alcoholic beverage was [place] but desires rehab addiction medicine consult pending Hypotension related to above. Not sepsis. Given IVF and albumin. hold BP medication for now Monitor BP gout continue allopurinol GERD continue PPI DVT prophylaxis-SCD boots Attending Dr. Villatoro Full code continue hospital stay for management of acute kidney injury requiring IV fluid resuscitation, IV albumin, and close monitoring of renal function electrolyte levels as well as expert consultation Quality Stroke Does the patient have a stroke diagnosis?: No VTE Prior VTE?: No VTE Risk Level:: Medical - moderate - high VTE Device Contraindication: N/A - Device Ordered VTE Drug Contraindication: Treatment Not Indicated
[2023-06-08] MEDS: prednisoLONE sodium phosphate 15 MG/5 ML SOLUTION 40 MG PO (07:54)
[2023-06-08] MEDS: 0.9 % Sodium Chloride Flush 3 ML SYRINGE IVFLUSH ×3 (07:57→23:50)
[2023-06-08] MEDS: Metoprolol Succinate ER 50 MG TAB.ER.24H PO (08:04)
[2023-06-08] MEDS: allopurinoL 300 MG TABLET PO (08:04)
[2023-06-08] MEDS: Magnesium Oxide 400 MG TABLET PO (08:05)
--- NOTE | 2023-06-08 08:10 | P.PNGI_ITS ---
Subjective Subjective Date of Service: 06/08/23 Interval History: c/o pruritis Critical Care Time (minutes): 0 Physical Exam 2 Vital Signs: Vital Signs: Last Vital Signs Temp 97.5 F 06/08/23 07:52 Pulse 90 06/08/23 07:52 Resp 18 06/08/23 07:52 BP 119/59 L 06/08/23 07:52 Pulse Ox 99 06/08/23 07:52 O2 Del Method Room Air 06/08/23 07:52 BMI result Body Mass Index 23.7 Const: General: cooperative GI: Other: abdomen is distended with ascites. Extrem: Other: no edema Objective Data Labs 06/07/23 04:34 06/07/23 13:54 Microbiology Microbiology Results: Microbiology 06/06/23 19:42 Ascites Fluid Gram Stain - Final 06/06/23 19:42 Ascites Fluid Anaerobic Culture - Preliminary No growth to date. 06/06/23 19:42 Ascites Fluid Body Fluid Culture - Preliminary No growth to date. Procedures Date of Service Date of Service: 06/08/23 Progress Note: A&P Assessment and plan (1) Cirrhosis of liver with ascites: Status: Acute Plan Alcoholic hepatitis with cirrhosis Acute renal failure pruritis Rec: Hold diuretics IR procedures as ordered continue prednisolone recheck lfts, renal function benadryl prn pruritis. Time Spent With Patient Time: Total time managing care of this patient today ____ minutes. Quality Stroke Does the patient have a stroke diagnosis?: No VTE Prior VTE?: No VTE Risk Level:: Medical - moderate - high VTE Device Contraindication: N/A - Device Ordered VTE Drug Contraindication: Treatment Not Indicated
--- NOTE | 2023-06-08 10:34 | PM.EVENT ---
Event Note Date of Service: 06/08/23 Event Note: Order for a percutaneous biopsy of a gallbladder mass acknowledged. Chart and imaging were reviewed with diagnostic and IR physicians. Patient has evidence of a small equivocal intraluminal mass in the neck of the gallbladder best seen on US. Patient is currently admitted with decompensated cirrhosis with ascites and CELESTINE (Cr4). Given the patient's acute medical issues (MELD 34), inability to receive sedation due to acute renal failure, high risk of bleeding from transhepatic biopsy with perihepatic ascites, and concern for continuous bile leak, IR would not recommend pursing a biopsy at this time. Given her MELD score, she does not appear to be a surgical candidate. If patient's condition improves, can revisit this request as an outpatient. Karlo HUERTA Interventional Radiology Time Spent With Patient Time: Total time managing care of this patient today ____ minutes.
[2023-06-08 11:32] LABS: Alanine Aminotransferase 26 U/L (0-31); Albumin Level 2.5 g/dL (3.5-5.0); Alkaline Phosphatase 278 U/L (39-117); Anion Gap 17 (12-20); Aspartate Amino Transferase 75 U/L (5-31); Bilirubin Direct 10.4 mg/dL (0.0-0.5); Bilirubin Total 13.4 mg/dL (0.0-1.0); Blood Urea Nitrogen 65 mg/dL (9-16); Calcium 8.1 mg/dL (8.4-10.2); Carbon Dioxide 19 mmol/L (22-29); Chloride 100 mmol/L (96-108); Creatinine Clr Calc Pharmacy 12.9; Estimated Glomerular Filt Rate 13; Glucose Random 148 mg/dL (60-115); Potassium 4.8 mmol/L (3.3-5.1); Sodium 131 mmol/L (135-145); Total Protein 6.3 g/dL (6.5-8.0)
[2023-06-08] MEDS: Lidocaine HCl 1 % MPF 5 ML VIAL SUBCUT (12:46)
--- NOTE | 2023-06-08 14:22 | MHC.CM.PN ---
pt lives alone is indepedent and has a ride home
[2023-06-08 15:31] VITALS: BP 103/58; PULSE 73; RESP 20; TEMP 36.3; O2SAT 100
--- NOTE | 2023-06-08 18:53 | P.PNNP_ITS ---
Subjective Subjective Date of Service: 06/08/23 Interval history: Events noted. All recent data reviewed Physical Exam 2 Vital Signs: Vital Signs: Last Vital Signs Temp 97.3 F 06/08/23 15:31 Pulse 73 06/08/23 15:31 Resp 20 06/08/23 15:31 BP 103/58 L 06/08/23 15:31 Pulse Ox 100 06/08/23 15:31 O2 Del Method Room Air 06/08/23 15:31 BMI result Body Mass Index 23.7 Const: General: comfortable and no acute distress O rientation/consciousness: patient oriented x3 HEENT: Head: Yes normocephalic Mouth: Normal oral and palatal mucosa present Eyes: EOM: EOMs intact bilaterally Neck: Neck: Yes supple Resp: Auscultation: clear to auscultation bilaterally Cardio: Jugular venous distension: no JVD Rate: regular rate GI: Palpation (GI): Soft to palpation Auscultation: normal bowel sounds : General: Yes no CVA tenderness Back/Spine/Pelvis: Back: no CVA tenderness Skin: General skin exam: no rashes or lesions noted Neuro: General: patient oriented x3 and moves all extremities Extrem: General: Yes no pedal edema Objective Data Labs 06/07/23 04:34 06/08/23 10:20 Labs: Laboratory Results - last 24 hr 06/06/23 06/08/23 19:42 10:20 Hold Purple Top SEE NOTE Sodium 131 L Potassium 4.8 Chloride 100 Carbon Dioxide 19 L Anion Gap 17 BUN 65 H Creatinine 3.63 H Estim Creat Clear Calc 12.9 Estimated GFR 13 Random Glucose 148 H Calcium 8.1 L Total Bilirubin 13.4 H Direct Bilirubin 10.4 H AST 75 H ALT 26 Alkaline Phosphatase 278 H Total Protein 6.3 L Albumin 2.5 L Peritoneal Albumin 0.4 Peritoneal LDH 28 Peritoneal Amylase 12 Microbiology Microbiology Results: Microbiology 06/07/23 11:12 Urine clean catch Urine Culture - Final 06/06/23 19:42 Ascites Fluid Gram Stain - Final 06/06/23 19:42 Ascites Fluid Anaerobic Culture - Preliminary No growth to date. 06/06/23 19:42 Ascites Fluid Body Fluid Culture - Preliminary No growth to date. Procedures Date of Service Date of Service: 06/08/23 Assessment & Plan Assessment and plan (1) Acute kidney injury: Status: Acute Plan Acute Kidney Injury due to tubular injury Likely has HRS 2 @ baseline No reason to suspect AIN/GN Could receive 25 Gram 25 % Albumin Q6 X 3 days C3/C4 ordered for AM; Had paracentesis No indication for renal replacement C/W rest of current supportive care for now Labs AM. Shall closely follow up Progress Note: Quality Stroke Does the patient have a stroke diagnosis?: No
[2023-06-08 19:53] VITALS: BP 110/52; PULSE 74; RESP 16; TEMP 36.7; O2SAT 96
[2023-06-08 23:35] VITALS: BP 95/57; PULSE 68; RESP 16; TEMP 36; O2SAT 97
[2023-06-08] MEDS: diphenhydrAMINE HCL 25 MG CAPSULE 50 MG PO (23:47)
[2023-06-09 03:10] VITALS: BP 100/55; PULSE 68; RESP 14; TEMP 36.1; O2SAT 96
[2023-06-09] MEDS: Omeprazole 20 MG CAPSULE.DR PO (07:09)
[2023-06-09 07:37] VITALS: BP 90/59; PULSE 66; RESP 18; TEMP 36.5; O2SAT 94
[2023-06-09] MEDS: allopurinoL 300 MG TABLET PO (09:08)
[2023-06-09] MEDS: prednisoLONE sodium phosphate 15 MG/5 ML SOLUTION 40 MG PO (09:09)
[2023-06-09] MEDS: Magnesium Oxide 400 MG TABLET PO (09:09)
[2023-06-09] MEDS: 0.9 % Sodium Chloride Flush 3 ML SYRINGE IVFLUSH ×3 (09:10→22:57)
[2023-06-09 09:46] LABS: MANUAL DIFF FLAG NO
[2023-06-09 09:55] LABS: Basophils Percent Auto 0.2 % (0-2); Eosinophils Percent Auto 0.3 % (0-4); Hematocrit 30.3 % (37.0-47.0); Hemoglobin 11.2 g/dl (12.0-16.0); Imm Gran Abs Auto 0.12 X10*3/uL (0.00-0.03); Imm Gran Pct Auto 0.9 % (0.0-0.4); Lymphocytes Absolute Auto 1.3 X10*3/uL (1.2-4.9); Lymphocytes Percent Auto 10.1 % (20-40); Mean Corpuscular Hemoglobin 34.8 pg (27.0-33.0); Mean Corpuscular Volume 94.1 fL (80.0-98.0); Mean Platelet Volume 11.7 fL (9.4-12.3); Monocytes Absolute Auto 0.6 X10*3/uL (0.1-1.2); Monocytes Percent Auto 4.7 % (2-11); Neutrophils Absolute Auto 10.6 x10*3/uL (2.0-8.3); Neutrophils Percent Auto 83.8 % (45-73); Platelet Count 115 X10*3/uL (160-400); Red Blood Count 3.22 X10*6/uL (4.20-5.50); Red Cell Distribution Width 17.4 % (11.0-16.0); White Blood Count 12.7 X10*3/uL (4.8-10.8)
[2023-06-09 10:00] LABS: INTERNATIONAL NORM RATIO 1.5 (0.9-1.1); Prothrombin Time 17.8 SEC (11.1-13.3)
[2023-06-09 10:26] LABS: Alanine Aminotransferase 28 U/L (0-31); Albumin Level 2.5 g/dL (3.5-5.0); Alkaline Phosphatase 270 U/L (39-117); Anion Gap 13 (12-20); Aspartate Amino Transferase 73 U/L (5-31); Bilirubin Direct 9.7 mg/dL (0.0-0.5); Bilirubin Total 12.3 mg/dL (0.0-1.0); Blood Urea Nitrogen 67 mg/dL (9-16); Calcium 9.6 mg/dL (8.4-10.2); Carbon Dioxide 21 mmol/L (22-29); Chloride 102 mmol/L (96-108); Creatinine Clr Calc Pharmacy 14.4; Estimated Glomerular Filt Rate 14; Glucose Random 134 mg/dL (60-115); Potassium 4.1 mmol/L (3.3-5.1); Sodium 132 mmol/L (135-145); Total Protein 6.5 g/dL (6.5-8.0)
[2023-06-09] MEDS: Albumin Human 25 % 100 ML IV ×3 (11:22→22:57)
[2023-06-09 11:40] VITALS: BP 111/59; PULSE 68; RESP 16; TEMP 36.5; O2SAT 96
--- NOTE | 2023-06-09 13:07 | PM.GIPN ---
Subjective Subjective Date of Service: 06/09/23 Interval History: tolerating diet denies abd pain Critical Care Time (minutes): 0 Physical Exam Vital Signs: Vital Signs: Last Vital Signs Temp 97.7 F 06/09/23 11:40 Pulse 68 06/09/23 11:40 Resp 16 06/09/23 11:40 BP 111/59 L 06/09/23 11:40 Pulse Ox 96 06/09/23 11:40 O2 Del Method Room Air 06/09/23 11:40 BMI result Body Mass Index 23.7 GI: Other: abdomen is with obvious ascites s/p 2L paracentesis Objective Data Labs 06/09/23 09:40 06/09/23 09:40 Labs: Laboratory Results - last 24 hr 06/09/23 09:40 WBC 12.7 H RBC 3.22 L D Hgb 11.2 L D Hct 30.3 L D MCV 94.1 MCH 34.8 H MCHC 37.0 H RDW 17.4 H Plt Count 115 L D MPV 11.7 Immature Gran % (Auto) 0.9 H Neut % (Auto) 83.8 H Lymph % (Auto) 10.1 L [place] % (Auto) 4.7 Eos % (Auto) 0.3 Baso % (Auto) 0.2 Lymph # (Auto) 1.3 [place] # (Auto) 0.6 Eos # (Auto) 0.0 Baso # (Auto) 0.0 Abs Immat Gran (auto) 0.12 H Absolute Neuts (auto) 10.6 H Absolute Nucleated RBC 0.000 Nucleated RBC % (auto) 0.0 PT 17.8 H INR 1.5 H Sodium 132 L Potassium 4.1 Chloride 102 Carbon Dioxide 21 L Anion Gap 13 BUN 67 H Creatinine 3.27 H Estim Creat Clear Calc 14.4 Estimated GFR 14 Random Glucose 134 H Calcium 9.6 D Total Bilirubin 12.3 H Direct Bilirubin 9.7 H AST 73 H ALT 28 Alkaline Phosphatase 270 H Total Protein 6.5 Albumin 2.5 L Microbiology Microbiology Results: Microbiology 06/06/23 19:42 Ascites Fluid Gram Stain - Final 06/06/23 19:42 Ascites Fluid Anaerobic Culture - Preliminary No growth to date. 06/06/23 19:42 Ascites Fluid Body Fluid Culture - Final No growth after 2 days 06/07/23 11:12 Urine clean catch Urine Culture - Final Procedures Date of Service Date of Service: 06/09/23 Progress Note: A&P Assessment and plan (1) Cirrhosis of liver with ascites: Status: Acute Assessment and Plan: continue steroids paracentesis prn discomfort can replace albumin 7/g per liter of fluid removed mri ordered per radiology recommendations. Time Spent With Patient Time: Total time managing care of this patient today ____ minutes. Quality Stroke Does the patient have a stroke diagnosis?: No VTE Prior VTE?: No VTE Risk Level:: Medical - moderate - high VTE Device Contraindication: N/A - Device Ordered VTE Drug Contraindication: Treatment Not Indicated
--- NOTE | 2023-06-09 13:13 | P.PNNP_ITS ---
Subjective Subjective Date of Service: 06/09/23 Interval history: Events noted Breathing is ok Physical Exam 2 Vital Signs: Vital Signs: Last Vital Signs Temp 97.7 F 06/09/23 11:40 Pulse 68 06/09/23 11:40 Resp 16 06/09/23 11:40 BP 111/59 L 06/09/23 11:40 Pulse Ox 96 06/09/23 11:40 O2 Del Method Room Air 06/09/23 11:40 BMI result Body Mass Index 23.7 Const: General: comfortable and no acute distress O rientation/consciousness: patient oriented x3 HEENT: Head: Yes normocephalic Mouth: Normal oral and palatal mucosa present Eyes: EOM: EOMs intact bilaterally Neck: Neck: Yes supple Resp: Auscultation: clear to auscultation bilaterally Cardio: Jugular venous distension: no JVD Rate: regular rate GI: Palpation (GI): Soft to palpation Auscultation: normal bowel sounds : General: Yes no CVA tenderness Back/Spine/Pelvis: Back: no CVA tenderness Skin: General skin exam: no rashes or lesions noted Neuro: General: patient oriented x3 and moves all extremities Extrem: General: Yes no pedal edema Objective Data Labs 06/09/23 09:40 06/09/23 09:40 Labs: Laboratory Results - last 24 hr 06/09/23 09:40 WBC 12.7 H RBC 3.22 L D Hgb 11.2 L D Hct 30.3 L D MCV 94.1 MCH 34.8 H MCHC 37.0 H RDW 17.4 H Plt Count 115 L D MPV 11.7 Immature Gran % (Auto) 0.9 H Neut % (Auto) 83.8 H Lymph % (Auto) 10.1 L [place] % (Auto) 4.7 Eos % (Auto) 0.3 Baso % (Auto) 0.2 Lymph # (Auto) 1.3 [place] # (Auto) 0.6 Eos # (Auto) 0.0 Baso # (Auto) 0.0 Abs Immat Gran (auto) 0.12 H Absolute Neuts (auto) 10.6 H Absolute Nucleated RBC 0.000 Nucleated RBC % (auto) 0.0 PT 17.8 H INR 1.5 H Sodium 132 L Potassium 4.1 Chloride 102 Carbon Dioxide 21 L Anion Gap 13 BUN 67 H Creatinine 3.27 H Estim Creat Clear Calc 14.4 Estimated GFR 14 Random Glucose 134 H Calcium 9.6 D Total Bilirubin 12.3 H Direct Bilirubin 9.7 H AST 73 H ALT 28 Alkaline Phosphatase 270 H Total Protein 6.5 Albumin 2.5 L Microbiology Microbiology Results: Microbiology 06/06/23 19:42 Ascites Fluid Gram Stain - Final 06/06/23 19:42 Ascites Fluid Anaerobic Culture - Preliminary No growth to date. 06/06/23 19:42 Ascites Fluid Body Fluid Culture - Final No growth after 2 days 06/07/23 11:12 Urine clean catch Urine Culture - Final Procedures Date of Service Date of Service: 06/09/23 Assessment & Plan Assessment and plan (1) Acute kidney injury: Status: Acute Plan CELESTINE superimposed on CKD in a setting of Cirrhosis Clinically volume depleted. Cannot r/o HRS yet Suggest to hold diuretics Check urine Na/Cr Optimize BP and avoid hypotension REstrict hypotonic fluids( PO water) to correct hyponatremia Paracenthesis as needed Watch urine output No indication for dialysis yet Time Spent With Patient Time: Total time managing care of this patient today ____ minutes. Progress Note: Quality Stroke Does the patient have a stroke diagnosis?: No
[2023-06-09 16:00] VITALS: BP 107/57; PULSE 81; RESP 20; TEMP 36.2; O2SAT 96
--- NOTE | 2023-06-09 16:20 | P.PNIM_ITS ---
Subjective Subjective Date of Service: 06/09/23 Interval History: seen and examined this morning follow up for acute etoh hepatitis, ascites, CELESTINE still feeling weak and tired no abdominal pain Review of Systems Review of Systems: Yes all other systems are reviewed and are negative Constitutional Constitutional: Denies chills and Denies fever(s) Cardiovascular Cardiovascular: Denies chest pain, Denies palpitations and Denies dyspnea Respiratory Respiratory: Denies cough and Denies dyspnea Gastrointestinal Gastrointestinal: Denies abdominal pain Endocrine Endocrine: Denies palpitations Physical Exam 2 Vital Signs: Vital Signs: Last Vital Signs Temp 97.7 F 06/09/23 11:40 Pulse 68 06/09/23 11:40 Resp 16 06/09/23 11:40 BP 111/59 L 06/09/23 11:40 Pulse Ox 96 06/09/23 11:40 O2 Del Method Room Air 06/09/23 11:40 BMI result Body Mass Index 23.7 Const: Other: frail elderly female General: cooperative, comfortable, alert and awake Nutritional Appearance: average body habitus Orientation/consciousness: patient oriented x3 Eyes: Other: b/l scleral icterus Resp: Effort & Inspection: normal respiratory effort, able to speak in complete sentences, no respiratory distress and no use of accessory muscles A uscultation: clear to auscultation bilaterally Cardio: Rate: regular rate GI: Other: softly distended, nontender +BS Skin: Other: jaundice Neuro: General: patient oriented x3 Extrem: General: Yes no pedal edema Objective Data Active Medications Acetaminophen (Acetaminophen 325 Mg Tablet) 650 mg PO Q6H PRN PRN Reason: Pain, Mild (Pain Scale 1-3) Allopurinol (Allopurinol 300 Mg Tablet) 300 mg PO DAILY [facility] Last Admin: 06/09/23 09:08 Dose: 300 mg Documented By: CHANCE Diphenhydramine HCl (Diphenhydramine Hcl 25 Mg Capsule) 50 mg PO Q6H PRN PRN Reason: Itching Last Admin: 06/08/23 23:47 Dose: 50 mg Documented By: GAYLE Albumin Human (Kedbumin 25 %) 100 mls @ 100 mls/hr IV Q6H JOSE ALFREDO Stop: 06/12/23 10:59 Last Infusion: 06/09/23 12:41 Dose: Infused Documented By: CHANCE Magnesium Oxide (Magnesium Oxide 400 Mg Tablet) 400 mg PO DAILY [facility] Last Admin: 06/09/23 09:09 Dose: 400 mg Documented By: CHANCE Metoprolol Succinate (Metoprolol Succinate Er 50 Mg Tab.Er.24h) 50 mg PO DAILY [facility]; Protocol Last Admin: 06/09/23 09:14 Dose: Not Given Documented By: CHANCE Non-Admin Reason: Decreased Blood Pressure Omeprazole (Omeprazole 20 Mg Capsule.Dr) 20 mg PO DAILY@0630 [facility] Last Admin: 06/09/23 07:09 Dose: 20 mg Documented By: CHANCE Ondansetron HCl (Ondansetron Hcl 4 Mg/2 Ml Vial) 4 mg IVPUSH Q8H PRN PRN Reason: Nausea and Vomiting Prednisolone Sodium Phosphate (Prednisolone Sodium Phosphate 15 Mg/5 Ml Solution) 40 mg PO DAILY [facility] Last Admin: 06/09/23 09:09 Dose: 40 mg Documented By: CHANCE Senna (Sennosides 8.6 Mg Tablet) 17.2 mg PO BEDTIME PRN PRN Reason: Constipation Sodium Chloride (0.9 % Sodium Chloride Flush 3 Ml Syringe) 3 ml IVFLUSH QSHIFT [facility] Last Admin: 06/09/23 09:10 Dose: 3 ml Documented By: CHANCE Labs 06/09/23 09:40 06/09/23 09:40 Labs: Laboratory Results - last 24 hr 06/09/23 09:40 MCV 94.1 MCH 34.8 H MCHC 37.0 H RDW 17.4 H Plt Count 115 L D MPV 11.7 Immature Gran % (Auto) 0.9 H Neut % (Auto) 83.8 H Lymph % (Auto) 10.1 L [place] % (Auto) 4.7 Eos % (Auto) 0.3 Baso % (Auto) 0.2 Lymph # (Auto) 1.3 [place] # (Auto) 0.6 Eos # (Auto) 0.0 Baso # (Auto) 0.0 Abs Immat Gran (auto) 0.12 H Absolute Neuts (auto) 10.6 H Absolute Nucleated RBC 0.000 Nucleated RBC % (auto) 0.0 PT 17.8 H INR 1.5 H Anion Gap 13 Estim Creat Clear Calc 14.4 Estimated GFR 14 Random Glucose 134 H Calcium 9.6 D Total Bilirubin 12.3 H Direct Bilirubin 9.7 H AST 73 H ALT 28 Alkaline Phosphatase 270 H Total Protein 6.5 Albumin 2.5 L Microbiology Microbiology Results: Microbiology 06/06/23 19:42 Gram Stain - Final Ascites Fluid Anaerobic Culture - Preliminary No growth to date. Body Fluid Culture - Final No growth after 2 days Assessment and Plan (1) Gallbladder mass: Status: Acute (2) Cirrhosis of liver with ascites: Status: Acute (3) Acute kidney injury: Status: Acute Plan This is a 63-year-old female with history of alcoholic cirrhosis complicated by portal venous hypertension and ascites, alcohol use disorder, gout, GERD admitted for further management of acute kidney injury and alcoholic hepatitis Acute kidney injury- likely prerenal due to hypovolemia, possible HRS creat trending down to 3.27, baseline 1.6. albumin q6h follow renal function, lytes avoid nephrotoxins Nephrology following acute alcoholic hepatitis on a background of cirrhosis complicated by ascites, portal venous hypertension diagnostic paracentesis in the ED negative for SBP gastroenterology consult>Prednisolone 40 mg daily for one week to see of liver function parameters improve s/p paracentesis 06/07 with removal of 2L paracentesis prn GI following gallbladder mass seen by surgery, rec Bx - not a candidate for multiple reasons per IR, rec MRI MRI pending per GI rec Chronic thrombocytopenia due to cirrhosis Chronic hyponatremia due to cirrhosis Acute leukocytosis. Resolved etiology unclear afebrile, CXR unremarkable. No SBP. No evidence of infection RUQ ultrasound with cirrhotic appearing liver with ascites, enlarged gallbladder mass Alcohol use disorder reports last alcoholic beverage was [place] but desires rehab addiction medicine consult pending Hypotension due to liver disease, Not sepsis. Given IVF and albumin. will hold metoprolol Monitor BP consider midodrine gout continue allopurinol GERD continue PPI DVT prophylaxis-SCD boots Attending Dr. Villatoro Full code continue hospital stay for management of acute kidney injury requiring IV fluid resuscitation, IV albumin, and close monitoring of renal function electrolyte levels as well as expert consultation Quality Stroke Does the patient have a stroke diagnosis?: No VTE Prior VTE?: No VTE Risk Level:: Medical - moderate - high VTE Device Contraindication: N/A - Device Ordered VTE Drug Contraindication: Treatment Not Indicated
[2023-06-09] MEDS: LORazepam 0.5 MG TABLET 0.25 MG PO (16:41)
[2023-06-09 17:32] LABS: Hematocrit 25.4 % (37.0-47.0); Hemoglobin 9.4 g/dl (12.0-16.0); Mean Corpuscular Hemoglobin 34.8 pg (27.0-33.0); Mean Corpuscular Volume 94.1 fL (80.0-98.0); Mean Platelet Volume 11.4 fL (9.4-12.3); NRBC Pct Auto 0.2 /100WBC (0.0-0.2); Red Cell Distribution Width 17.2 % (11.0-16.0); White Blood Count 11.4 X10*3/uL (4.8-10.8)
[2023-06-09] MEDS: gadobutroL 7.5 ML VIAL IVPUSH (18:11)
[2023-06-09 18:16] LABS: Platelet Count 91 X10*3/uL (160-400)
[2023-06-09 19:10] VITALS: BP 104/57; PULSE 69; RESP 20; TEMP 36.1; O2SAT 99
[2023-06-09 23:38] VITALS: BP 109/61; PULSE 75; RESP 18; TEMP 36.2; O2SAT 97
[2023-06-10] VITALS (7 sets, daily range): BP systolic 104–115; BP diastolic 53–60; PULSE 66–89; RESP 16–20; TEMP 36.2–36.9; O2SAT 96–99
[2023-06-10] MEDS: Albumin Human 25 % 100 ML IV ×4 (05:34→23:02)
[2023-06-10] MEDS: Omeprazole 20 MG CAPSULE.DR PO (05:34)
[2023-06-10] MEDS: 0.9 % Sodium Chloride Flush 3 ML SYRINGE IVFLUSH ×2 (07:09→14:22)
[2023-06-10] MEDS: Midodrine HCl 5 MG TABLET PO ×3 (08:26→20:37)
[2023-06-10] MEDS: Magnesium Oxide 400 MG TABLET PO (08:26)
[2023-06-10] MEDS: prednisoLONE sodium phosphate 15 MG/5 ML SOLUTION 40 MG PO (08:27)
[2023-06-10] MEDS: allopurinoL 300 MG TABLET PO (08:27)
[2023-06-10 08:50] LABS: Hematocrit 25.2 % (37.0-47.0); Hemoglobin 9.2 g/dl (12.0-16.0); Mean Corpuscular HGB Conc 36.5 g/dl (31.0-35.0); Mean Corpuscular Hemoglobin 34.5 pg (27.0-33.0); Mean Corpuscular Volume 94.4 fL (80.0-98.0); Mean Platelet Volume 12.1 fL (9.4-12.3); Red Blood Count 2.67 X10*6/uL (4.20-5.50); Red Cell Distribution Width 17.5 % (11.0-16.0); White Blood Count 9.9 X10*3/uL (4.8-10.8)
[2023-06-10 08:51] LABS: Platelet Count 83 X10*3/uL (160-400)
[2023-06-10 09:06] LABS: Alanine Aminotransferase 22 U/L (0-31); Albumin Level 3.3 g/dL (3.5-5.0); Alkaline Phosphatase 211 U/L (39-117); Anion Gap 18 (12-20); Aspartate Amino Transferase 60 U/L (5-31); Bilirubin Direct 7.4 mg/dL (0.0-0.5); Bilirubin Total 9.1 mg/dL (0.0-1.0); Blood Urea Nitrogen 74 mg/dL (9-16); Calcium 8.8 mg/dL (8.4-10.2); Carbon Dioxide 18 mmol/L (22-29); Chloride 103 mmol/L (96-108); Estimated Glomerular Filt Rate 16; Glucose Random 113 mg/dL (60-115); Potassium 4.3 mmol/L (3.3-5.1); Sodium 135 mmol/L (135-145); Total Protein 6.4 g/dL (6.5-8.0)
--- NOTE | 2023-06-10 09:56 | P.PNIM_ITS ---
Subjective Subjective Date of Service: 06/10/23 Interval History: seen and examined this morning follow up for etoh hepatitis, ascites no overnight events feeling a little better this morning, no appetitie does not want another paracentesis, no abdominal pain Review of Systems Review of Systems: Yes all other systems are reviewed and are negative Constitutional Constitutional: Denies chills and Denies fever(s) Cardiovascular Cardiovascular: Denies chest pain, Denies palpitations and Denies dyspnea Respiratory Respiratory: Reports cough and Denies dyspnea Endocrine Endocrine: Denies palpitations Physical Exam 2 Vital Signs: Vital Signs: Last Vital Signs Temp 97.6 F 06/10/23 07:22 Pulse 66 06/10/23 07:22 Resp 20 06/10/23 07:22 BP 112/55 L 06/10/23 07:22 Pulse Ox 97 06/10/23 07:22 O2 Del Method Room Air 06/10/23 04:00 BMI result Body Mass Index 23.7 Const: Other: frail elderly female General: cooperative, comfortable, alert and awake Nutritional Appearance: average body habitus Orientation/consciousness: patient oriented x3 Eyes: Other: b/l scleral icterus Resp: Effort & Inspection: normal respiratory effort, able to speak in complete sentences, no respiratory distress and no use of accessory muscles A uscultation: clear to auscultation bilaterally Cardio: Rate: regular rate GI: Other: softly distended, nontender +BS Skin: Other: jaundice Neuro: General: patient oriented x3 Extrem: General: Yes no pedal edema Objective Data Active Medications Acetaminophen (Acetaminophen 325 Mg Tablet) 650 mg PO Q6H PRN PRN Reason: Pain, Mild (Pain Scale 1-3) Allopurinol (Allopurinol 300 Mg Tablet) 300 mg PO DAILY [facility] Last Admin: 06/10/23 08:27 Dose: 300 mg Documented By: ANA LUISA Diphenhydramine HCl (Diphenhydramine Hcl 25 Mg Capsule) 50 mg PO Q6H PRN PRN Reason: Itching Last Admin: 06/08/23 23:47 Dose: 50 mg Documented By: GAYLE Albumin Human (Kedbumin 25 %) 100 mls @ 100 mls/hr IV Q6H JOSE ALFREDO Stop: 06/12/23 10:59 Last Infusion: 06/10/23 07:14 Dose: Infused Documented By: HERBERTH Magnesium Oxide (Magnesium Oxide 400 Mg Tablet) 400 mg PO DAILY [facility] Last Admin: 06/10/23 08:26 Dose: 400 mg Documented By: ANA LUISA Metoprolol Succinate (Metoprolol Succinate Er 50 Mg Tab.Er.24h) 50 mg PO DAILY [facility]; Protocol Last Admin: 06/09/23 09:14 Dose: Not Given Documented By: CHANCE Non-Admin Reason: Decreased Blood Pressure Midodrine (Midodrine Hcl 5 Mg Tablet) 5 mg PO TID [facility] Last Admin: 06/10/23 08:26 Dose: 5 mg Documented By: ANA LUISA Omeprazole (Omeprazole 20 Mg Capsule.Dr) 20 mg PO DAILY@0630 [facility] Last Admin: 06/10/23 05:34 Dose: 20 mg Documented By: RISSA Ondansetron HCl (Ondansetron Hcl 4 Mg/2 Ml Vial) 4 mg IVPUSH Q8H PRN PRN Reason: Nausea and Vomiting Prednisolone Sodium Phosphate (Prednisolone Sodium Phosphate 15 Mg/5 Ml Solution) 40 mg PO DAILY [facility] Last Admin: 06/10/23 08:27 Dose: 40 mg Documented By: ANA LUISA Senna (Sennosides 8.6 Mg Tablet) 17.2 mg PO BEDTIME PRN PRN Reason: Constipation Sodium Chloride (0.9 % Sodium Chloride Flush 3 Ml Syringe) 3 ml IVFLUSH QSHIFT [facility] Last Admin: 06/10/23 07:09 Dose: 3 ml Documented By: HERBERTH Labs 06/10/23 07:36 06/10/23 07:36 Labs: Laboratory Results - last 24 hr 06/09/23 06/09/23 06/10/23 09:40 17:26 07:36 MCV 94.1 94.1 94.4 MCH 34.8 H 34.8 H 34.5 H MCHC 37.0 H 37.0 H 36.5 H RDW 17.4 H 17.2 H 17.5 H Plt Count 115 L D 91 L 83 L MPV 11.7 11.4 12.1 Immature Gran % (Auto) 0.9 H Neut % (Auto) 83.8 H Lymph % (Auto) 10.1 L [place] % (Auto) 4.7 Eos % (Auto) 0.3 Baso % (Auto) 0.2 Lymph # (Auto) 1.3 [place] # (Auto) 0.6 Eos # (Auto) 0.0 Baso # (Auto) 0.0 Abs Immat Gran (auto) 0.12 H Absolute Neuts (auto) 10.6 H Absolute Nucleated RBC 0.000 0.020 H 0.000 Nucleated RBC % (auto) 0.0 0.2 0.0 PT 17.8 H INR 1.5 H Anion Gap 13 18 Estim Creat Clear Calc 14.4 16.0 Estimated GFR 14 16 Random Glucose 134 H 113 Calcium 9.6 D 8.8 D Total Bilirubin 12.3 H 9.1 H Direct Bilirubin 9.7 H 7.4 H AST 73 H 60 H ALT 28 22 Alkaline Phosphatase 270 H 211 H Total Protein 6.5 6.4 L Albumin 2.5 L 3.3 L Microbiology Microbiology Results: Microbiology 06/06/23 19:42 Gram Stain - Final Ascites Fluid Anaerobic Culture - Preliminary No growth to date. Body Fluid Culture - Final No growth after 2 days Assessment and Plan (1) Gallbladder mass: Status: Acute (2) Cirrhosis of liver with ascites: Status: Acute Plan This is a 63-year-old female with history of alcoholic cirrhosis complicated by portal venous hypertension and ascites, alcohol use disorder, gout, GERD admitted for further management of acute kidney injury and alcoholic hepatitis Acute kidney injury- likely prerenal due to hypovolemia, possible HRS creatinine trending down to 2.93, baseline 1.6. continue albumin q6h x 3 days continue midodrine follow renal function, lytes avoid nephrotoxins Nephrology following acute alcoholic hepatitis on a background of cirrhosis complicated by ascites, portal venous hypertension diagnostic paracentesis in the ED negative for SBP gastroenterology consult>Prednisolone 40 mg daily for one week LFTs trending down s/p paracentesis 06/07 with removal of 2L paracentesis prn - patient declines paracentesis today GI following gallbladder mass seen by surgery, rec Bx - not a candidate for multiple reasons per IR, rec MRI MRI pending per GI rec Chronic thrombocytopenia due to cirrhosis hyponatremia due to cirrhosis. resolved Acute leukocytosis. Resolved afebrile, CXR unremarkable. No SBP. No evidence of infection Alcohol use disorder reports last alcoholic beverage was [place] Tuesday but desires rehab addiction medicine consult pending Hypotension due to liver disease, Not sepsis. Given IVF and albumin. will hold metoprolol Monitor BP consider midodrine gout continue allopurinol GERD continue PPI DVT prophylaxis-SCD boots Attending Dr. Villatoro Full code continue hospital stay for management of acute kidney injury requiring IV fluid resuscitation, IV albumin, and close monitoring of renal function electrolyte levels as well as expert consultation Quality Stroke Does the patient have a stroke diagnosis?: No VTE Prior VTE?: No VTE Risk Level:: Medical - moderate - high VTE Device Contraindication: N/A - Device Ordered VTE Drug Contraindication: Treatment Not Indicated
[2023-06-10 11:18] LABS: Creatinine Urine 118.61 mg/dL; Sodium Urine Random < 20.0 mmol/L
--- NOTE | 2023-06-10 12:51 | PC.NURSE ---
Patient states she does not want Paracentesis today but asking if emergency happens over the weekend will someone be able to help her,BRADLEY Faulkner notified
--- NOTE | 2023-06-10 15:39 | P.PNGI_ITS ---
Subjective Subjective Date of Service: 06/10/23 Interval History: no abd pain Critical Care Time (minutes): 0 Physical Exam 2 Vital Signs: Vital Signs: Last Vital Signs Temp 98.4 F 06/10/23 15:24 Pulse 89 06/10/23 15:24 Resp 18 06/10/23 15:24 BP 115/54 L 06/10/23 15:24 Pulse Ox 97 06/10/23 15:24 O2 Del Method Room Air 06/10/23 11:28 BMI result Body Mass Index 23.7 GI: Other: jaundiced abd with ascites compression boots in place over LE's Objective Data Labs 06/10/23 07:36 06/10/23 07:36 Microbiology Microbiology Results: Microbiology 06/06/23 19:42 Ascites Fluid Gram Stain - Final 06/06/23 19:42 Ascites Fluid Anaerobic Culture - Preliminary No growth to date. 06/06/23 19:42 Ascites Fluid Body Fluid Culture - Final No growth after 2 days 06/07/23 11:12 Urine clean catch Urine Culture - Final Procedures Date of Service Date of Service: 06/10/23 Progress Note: A&P Assessment and plan (1) Cirrhosis of liver with ascites: Status: Acute Plan alcoholic hepatitis with ascites lfts and s cr improving unlikely to tolerate restarting diuretics unless renal recommends otherwise. paracentesis prn can consider tips if refractory ascites continue steroids x 30 days, then taper (10 mg q 3-4 days as julio) discussed with patient. Time Spent With Patient Time: Total time managing care of this patient today ____ minutes. Quality Stroke Does the patient have a stroke diagnosis?: No VTE Prior VTE?: No VTE Risk Level:: Medical - moderate - high VTE Device Contraindication: N/A - Device Ordered VTE Drug Contraindication: Treatment Not Indicated
--- NOTE | 2023-06-10 19:11 | P.PNNP_ITS ---
Subjective Subjective Date of Service: 06/10/23 Interval history: No abd pain. All recent data reviewed Physical Exam 2 Vital Signs: Vital Signs: Last Vital Signs Temp 97.6 F 06/10/23 19:07 Pulse 89 06/10/23 19:07 Resp 16 06/10/23 19:07 BP 109/55 L 06/10/23 19:07 Pulse Ox 98 06/10/23 19:07 O2 Del Method Room Air 06/10/23 19:07 BMI result Body Mass Index 23.7 Const: General: comfortable and no acute distress HEENT: Head: Yes normocephalic Mouth: Normal oral and palatal mucosa present Eyes: EOM: EOMs intact bilaterally Neck: Neck: Yes supple Resp: Auscultation: clear to auscultation bilaterally Cardio: Jugular venous distension: no JVD Rate: regular rate GI: Palpation (GI): Soft to palpation Auscultation: normal bowel sounds : General: Yes no CVA tenderness Back/Spine/Pelvis: Back: no CVA tenderness Skin: General skin exam: no rashes or lesions noted Neuro: General: moves all extremities Objective Data Labs 06/10/23 07:36 06/10/23 07:36 Labs: Laboratory Results - last 24 hr 06/10/23 06/10/23 07:36 10:46 WBC 9.9 RBC 2.67 L Hgb 9.2 L Hct 25.2 L MCV 94.4 MCH 34.5 H MCHC 36.5 H RDW 17.5 H Plt Count 83 L MPV 12.1 Absolute Nucleated RBC 0.000 Nucleated RBC % (auto) 0.0 Sodium 135 Potassium 4.3 Chloride 103 Carbon Dioxide 18 L Anion Gap 18 BUN 74 H Creatinine 2.93 H Estim Creat Clear Calc 16.0 Estimated GFR 16 Random Glucose 113 Calcium 8.8 D Total Bilirubin 9.1 H Direct Bilirubin 7.4 H AST 60 H ALT 22 Alkaline Phosphatase 211 H Total Protein 6.4 L Albumin 3.3 L Ur Random Sodium < 20.0 Urine Creatinine 118.61 Microbiology Microbiology Results: Microbiology 06/06/23 19:42 Ascites Fluid Gram Stain - Final 06/06/23 19:42 Ascites Fluid Anaerobic Culture - Preliminary No growth to date. 06/06/23 19:42 Ascites Fluid Body Fluid Culture - Final No growth after 2 days 06/07/23 11:12 Urine clean catch Urine Culture - Final Procedures Date of Service Date of Service: 06/10/23 Assessment & Plan Assessment and plan (1) Acute kidney injury: Status: Acute Plan Acute Kidney Injury due to tubular injury No reason to suspect AIN/GN Receiving 25 Gram 25 % Albumin Q6 X 3 days Had paracentesis; Renal function improving No indication for renal replacement C/W rest of current supportive care for now Labs AM. Shall closely follow up Progress Note: Quality Stroke Does the patient have a stroke diagnosis?: No
[2023-06-11 03:10] VITALS: BP 119/61; PULSE 79; RESP 18; TEMP 37.1; O2SAT 96
[2023-06-11] MEDS: Albumin Human 25 % 100 ML IV ×4 (05:55→22:52)
[2023-06-11] MEDS: Omeprazole 20 MG CAPSULE.DR PO (05:59)
[2023-06-11 06:12] LABS: Alanine Aminotransferase 25 U/L (0-31); Albumin Level 3.4 g/dL (3.5-5.0); Alkaline Phosphatase 178 U/L (39-117); Anion Gap 15 (12-20); Aspartate Amino Transferase 88 U/L (5-31); Bilirubin Direct 5.9 mg/dL (0.0-0.5); Bilirubin Total 7.8 mg/dL (0.0-1.0); Blood Urea Nitrogen 71 mg/dL (9-16); Calcium 8.8 mg/dL (8.4-10.2); Carbon Dioxide 18 mmol/L (22-29); Chloride 105 mmol/L (96-108); Creatinine Clr Calc Pharmacy 18.3; Estimated Glomerular Filt Rate 19; Glucose Random 119 mg/dL (60-115); Potassium 4.1 mmol/L (3.3-5.1); Sodium 134 mmol/L (135-145)
--- NOTE | 2023-06-11 07:10 | HO.PM.IMPN ---
Subjective Subjective Date of Service: 06/11/23 Interval History: seen and examined this morning follow up for etoh hepatitis, ascites no overnight events Improved appetite Reports abd pain. No n/v. Would like paracentesis Review of Systems Review of Systems: Yes all other systems are reviewed and are negative Constitutional Constitutional: Denies chills and Denies fever(s) Cardiovascular Cardiovascular: Denies chest pain, Denies palpitations and Denies dyspnea Respiratory Respiratory: Reports cough and Denies dyspnea Endocrine Endocrine: Denies palpitations Physical Exam Vital Signs: Vital Signs: Last Vital Signs Temp 98.8 F 06/11/23 03:10 Pulse 79 06/11/23 03:10 Resp 18 06/11/23 03:10 BP 119/61 06/11/23 03:10 Pulse Ox 96 06/11/23 03:10 O2 Del Method Room Air 06/11/23 03:10 BMI result Body Mass Index 23.7 Constitutional - Awake and Alert, No apparent distress Eyes - PERRLA, EOMI Cardiovascular - S1S2, RRR, No edema Respiratory - Normal lung expansion, Normal respiratory effort, No respiratory distress, CTA bilaterally Gastrointestinal - moderate distension with + fluid wave. +BS; No rebound or guarding Extremities - no calf tenderness bilaterally, no swelling Skin - Warm/Dry. +jaundice Neurological - Alert & oriented x3 Psychological - Appropriate affect Objective Data Active Medications Acetaminophen (Acetaminophen 325 Mg Tablet) 650 mg PO Q6H PRN PRN Reason: Pain, Mild (Pain Scale 1-3) Allopurinol (Allopurinol 300 Mg Tablet) 300 mg PO DAILY [facility] Last Admin: 06/10/23 08:27 Dose: 300 mg Documented By: ANA LUISA Diphenhydramine HCl (Diphenhydramine Hcl 25 Mg Capsule) 50 mg PO Q6H PRN PRN Reason: Itching Last Admin: 06/08/23 23:47 Dose: 50 mg Documented By: GAYLE Albumin Human (Kedbumin 25 %) 100 mls @ 100 mls/hr IV Q6H [facility] Stop: 06/12/23 10:59 Last Infusion: 06/11/23 07:02 Dose: Infused Documented By: SAURAV Magnesium Oxide (Magnesium Oxide 400 Mg Tablet) 400 mg PO DAILY [facility] Last Admin: 06/10/23 08:26 Dose: 400 mg Documented By: ANA LUISA Metoprolol Succinate (Metoprolol Succinate Er 50 Mg Tab.Er.24h) 50 mg PO DAILY [facility]; Protocol Last Admin: 06/09/23 09:14 Dose: Not Given Documented By: CHANCE Non-Admin Reason: Decreased Blood Pressure Midodrine (Midodrine Hcl 5 Mg Tablet) 5 mg PO TID [facility] Last Admin: 06/10/23 20:37 Dose: 5 mg Documented By: MAVERICK Omeprazole (Omeprazole 20 Mg Capsule.Dr) 20 mg PO DAILY@0630 [facility] Last Admin: 06/11/23 05:59 Dose: 20 mg Documented By: MYRNA Ondansetron HCl (Ondansetron Hcl 4 Mg/2 Ml Vial) 4 mg IVPUSH Q8H PRN PRN Reason: Nausea and Vomiting Prednisolone Sodium Phosphate (Prednisolone Sodium Phosphate 15 Mg/5 Ml Solution) 40 mg PO DAILY [facility] Last Admin: 06/10/23 08:27 Dose: 40 mg Documented By: ANA LUISA Senna (Sennosides 8.6 Mg Tablet) 17.2 mg PO BEDTIME PRN PRN Reason: Constipation Sodium Chloride (0.9 % Sodium Chloride Flush 3 Ml Syringe) 3 ml IVFLUSH QSHIFT [facility] Last Admin: 06/10/23 23:38 Dose: Not Given Documented By: MYRNA Non-Admin Reason: IV Running Labs 06/10/23 07:36 06/11/23 04:54 Labs: Laboratory Results - last 24 hr 06/10/23 06/10/23 06/11/23 07:36 10:46 04:54 MCV 94.4 MCH 34.5 H MCHC 36.5 H RDW 17.5 H Plt Count 83 L MPV 12.1 Absolute Nucleated RBC 0.000 Nucleated RBC % (auto) 0.0 Hold Purple Top SEE NOTE Anion Gap 18 15 Estim Creat Clear Calc 16.0 18.3 Estimated GFR 16 19 Random Glucose 113 119 H Calcium 8.8 D 8.8 Total Bilirubin 9.1 H 7.8 H Direct Bilirubin 7.4 H 5.9 H AST 60 H 88 H ALT 22 25 Alkaline Phosphatase 211 H 178 H Total Protein 6.4 L 6.0 L Albumin 3.3 L 3.4 L Ur Random Sodium < 20.0 Urine Creatinine 118.61 Microbiology Microbiology Results: Microbiology 06/06/23 19:42 Gram Stain - Final Ascites Fluid Anaerobic Culture - Preliminary No growth to date. Body Fluid Culture - Final No growth after 2 days Assessment and Plan (1) Cirrhosis of liver with ascites: Status: Acute (2) Alcoholic hepatitis: Status: Acute Plan This is a 63-year-old female with history of alcoholic cirrhosis complicated by portal venous hypertension and ascites, alcohol use disorder, gout, GERD admitted for further management of acute kidney injury and alcoholic hepatitis Acute kidney injury- likely prerenal due to hypovolemia, possible HRS creatinine trending down to 2.57, baseline 1.6. continue albumin q6h x 3 days (initiated 06/08) continue midodrine follow renal function, lytes avoid nephrotoxins- ok to resume lasix and spironolactone per nephro Nephrology following acute alcoholic hepatitis on a background of cirrhosis complicated by ascites, portal venous hypertension diagnostic paracentesis in the ED negative for SBP gastroenterology consult>Prednisolone 40 mg daily for one week LFTs trending down s/p paracentesis 06/07 with removal of 2L paracentesis prn - declined paracentesis 06/09, today wants paracentesis. therapeutic paracentesis ordered for 06/13 when IR returns, NPO after midnight Per nephrology, OK to resume lasix 20/spironolactone 50 low sodium diet GI following gallbladder mass- ruled out seen by surgery, rec Bx - not a candidate for multiple reasons per IR, rec MRI MRI 06/08 negative for gallbladder mass, shows cholelithiasis without choledocolithiasis or biliary obtruction. Chronic thrombocytopenia due to cirrhosis hyponatremia due to cirrhosis. resolved Acute leukocytosis. Resolved afebrile, CXR unremarkable. No SBP. No evidence of infection Alcohol use disorder reports last alcoholic beverage was [place] but desires rehab addiction medicine consult pending Hypotension due to liver disease, Not sepsis. Given IVF and albumin. will hold metoprolol Monitor BP consider midodrine gout continue allopurinol GERD continue PPI DVT prophylaxis-SCD boots Attending Dr. Villatoro Full code continue hospital stay for management of acute kidney injury requiring IV fluid resuscitation, IV albumin, and close monitoring of renal function electrolyte levels as well as expert consultation Quality Stroke Does the patient have a stroke diagnosis?: No VTE Prior VTE?: No VTE Risk Level:: Medical - moderate - high VTE Device Contraindication: N/A - Device Ordered VTE Drug Contraindication: Treatment Not Indicated
[2023-06-11 08:00] VITALS: BP 138/52; PULSE 79; RESP 17; TEMP 36.5; O2SAT 98
[2023-06-11] MEDS: allopurinoL 300 MG TABLET PO (08:42)
[2023-06-11] MEDS: Midodrine HCl 5 MG TABLET PO ×3 (08:42→20:22)
[2023-06-11] MEDS: Magnesium Oxide 400 MG TABLET PO (08:42)
[2023-06-11] MEDS: prednisoLONE sodium phosphate 15 MG/5 ML SOLUTION 40 MG PO (08:43)
[2023-06-11] MEDS: 0.9 % Sodium Chloride Flush 3 ML SYRINGE IVFLUSH ×3 (08:47→22:53)
[2023-06-11 15:50] VITALS: BP 121/59; PULSE 84; RESP 20; TEMP 36.3; O2SAT 99
[2023-06-11 15:57] VITALS: BP 121/68; PULSE 99; RESP 84; TEMP 36.4; O2SAT 97
[2023-06-11 19:39] VITALS: BP 99/78; PULSE 89; RESP 17; TEMP 36.2; O2SAT 98
[2023-06-11] MEDS: ondansetron HCL 4 MG/2 ML VIAL IVPUSH (20:28)
[2023-06-11 23:35] VITALS: BP 127/58; PULSE 81; RESP 18; TEMP 36; O2SAT 96
[2023-06-12] MEDS: Acetaminophen 325 MG TABLET 650 MG PO (02:06)
[2023-06-12] MEDS: diphenhydrAMINE HCL 25 MG CAPSULE 50 MG PO (02:07)
--- NOTE | 2023-06-12 02:40 | PC.NURSE ---
Addendum entered by Aleisha Gloria RN 06/12/23 02:48: Interaction occurred: 02:03 am notified via [employer] @ 02:35 am once patient was safely back in bed Original Note: RN notified by camera system that patient attempting to get out of bed. RN and PCT into room to check on patient. Toileting offered to which patient accepted. upon entering the bathroom pt c/o headache and itching, RN gave PRN tylenol and PRN benedryl, see MAR. VS taken while patient was on toilet for safety. WNL. Patient returned back to bed 2 assist for safety. This RN assessed patient's mental status, A&O only to self and time, to which time took the patient some time to recall and first response was 1957-patient was able to redirect self to 2023. Patient is unaware of place and situation at this time. MD Sachin covering provider notified via [employer] of change in mental status and was able to confirm to provider that there are no further neurological deficits upon assessment. no change in speech, no facial droop or change in extremity weakness observed through neuro assessment. pupils are 3mm and equal round and reactive. no further orders at this time. Camera in room and bed alarm on for additional safety precautions. safety and comfort maintained, call padilla within patient's reach, patient educated on use of call padilla.
[2023-06-12 03:54] VITALS: BP 120/60; PULSE 80; RESP 15; TEMP 36; O2SAT 96
[2023-06-12] MEDS: Albumin Human 25 % 100 ML IV (05:33)
[2023-06-12] MEDS: Omeprazole 20 MG CAPSULE.DR PO ×2 (05:37→16:01)
--- NOTE | 2023-06-12 07:10 | HO.PM.IMPN ---
Subjective Subjective Date of Service: 06/12/23 Interval History: seen and examined this morning follow up for etoh hepatitis, ascites pt feels confused, increased confusion noted last night and this morning Review of Systems Review of Systems: Yes all other systems are reviewed and are negative Constitutional Constitutional: Denies chills and Denies fever(s) Cardiovascular Cardiovascular: Denies chest pain, Denies palpitations and Denies dyspnea Respiratory Respiratory: Reports cough and Denies dyspnea Endocrine Endocrine: Denies palpitations Physical Exam Vital Signs: Vital Signs: Last Vital Signs Temp 96.8 F 06/12/23 03:54 Pulse 80 06/12/23 03:54 Resp 15 06/12/23 03:54 BP 120/60 06/12/23 03:54 Pulse Ox 96 06/12/23 03:54 O2 Del Method Room Air 06/12/23 03:54 BMI result Body Mass Index 23.7 Constitutional - Awake and Alert, No apparent distress Eyes - PERRLA, EOMI Cardiovascular - S1S2, RRR, No edema Respiratory - Normal lung expansion, Normal respiratory effort, No respiratory distress, CTA bilaterally Gastrointestinal - moderate distension with mild diffuse ttp. +BS; No rebound or guarding Extremities - no calf tenderness bilaterally, no swelling Skin - Warm/Dry. +jaundice Neurological - Alert & oriented x3, CN II-XII in tact, cerebellar ataxia noted by abnormal finger to nose testing and gait ataxia. Normal heel to crow testing but slow with responses, 5/5 strength BUE and BLE Psychological - Appropriate affect Objective Data Active Medications Acetaminophen (Acetaminophen 325 Mg Tablet) 650 mg PO Q6H PRN PRN Reason: Pain, Mild (Pain Scale 1-3) Last Admin: 06/12/23 02:06 Dose: 650 mg Documented By: MAYCOL Allopurinol (Allopurinol 300 Mg Tablet) 300 mg PO DAILY [facility] Last Admin: 06/11/23 08:42 Dose: 300 mg Documented By: SAURAV Diphenhydramine HCl (Diphenhydramine Hcl 25 Mg Capsule) 50 mg PO Q6H PRN PRN Reason: Itching Last Admin: 06/12/23 02:07 Dose: 50 mg Documented By: MAYCOL Comments: pt c/o itching, scratching arms Furosemide (Furosemide 20 Mg Tablet) 20 mg PO DAILY [facility]; Protocol Albumin Human (Kedbumin 25 %) 100 mls @ 100 mls/hr IV Q6H [facility] Stop: 06/12/23 10:59 Last Infusion: 06/12/23 06:37 Dose: Infused Documented By: MAYCOL Magnesium Oxide (Magnesium Oxide 400 Mg Tablet) 400 mg PO DAILY [facility] Last Admin: 06/11/23 08:42 Dose: 400 mg Documented By: SAURAV Metoprolol Succinate (Metoprolol Succinate Er 50 Mg Tab.Er.24h) 50 mg PO DAILY [facility]; Protocol Last Admin: 06/09/23 09:14 Dose: Not Given Documented By: CHANCE Non-Admin Reason: Decreased Blood Pressure Midodrine (Midodrine Hcl 5 Mg Tablet) 5 mg PO TID [facility] Last Admin: 06/11/23 20:22 Dose: 5 mg Documented By: MAYCOL Omeprazole (Omeprazole 20 Mg Capsule.Dr) 20 mg PO DAILY@0630 [facility] Last Admin: 06/12/23 05:37 Dose: 20 mg Documented By: MAYCOL Ondansetron HCl (Ondansetron Hcl 4 Mg/2 Ml Vial) 4 mg IVPUSH Q8H PRN PRN Reason: Nausea and Vomiting Last Admin: 06/11/23 20:28 Dose: 4 mg Documented By: MAYCOL Prednisolone Sodium Phosphate (Prednisolone Sodium Phosphate 15 Mg/5 Ml Solution) 40 mg PO DAILY [facility] Last Admin: 06/11/23 08:43 Dose: 40 mg Documented By: SAURAV Senna (Sennosides 8.6 Mg Tablet) 17.2 mg PO BEDTIME PRN PRN Reason: Constipation Sodium Chloride (0.9 % Sodium Chloride Flush 3 Ml Syringe) 3 ml IVFLUSH QSHIFT [facility] Last Admin: 06/11/23 22:53 Dose: 3 ml Documented By: MAYCOL Spironolactone (Spironolactone 25 Mg Tablet) 50 mg PO DAILY [facility]; Protocol Labs 06/12/23 07:12 06/12/23 07:12 Microbiology Microbiology Results: Microbiology 06/06/23 19:42 Gram Stain - Final Ascites Fluid Anaerobic Culture - Preliminary No growth to date. Body Fluid Culture - Final No growth after 2 days Assessment and Plan (1) Cirrhosis of liver with ascites: Status: Acute (2) Alcoholic hepatitis: Status: Acute Plan This is a 63-year-old female with history of alcoholic cirrhosis complicated by portal venous hypertension and ascites, alcohol use disorder, gout, GERD admitted for further management of acute kidney injury and alcoholic hepatitis Acute metabolic vs toxic metabolic encephalopathy oriented x3, but slow to respond, aware of confusion, cerebellar ataxia noted on exam ammonia 50. Initiate lactulose 20g BID, titrate to 2-3 loose stools per day check head ct neurology consult to evaluate for possible WE. Give 300mg IV thiamine x1, then 100mg daily. Check vitamin b1, 9, 12 Has known cirrhosis, ?acute liver failure. However, LFTs trending down. Coags pending. Awaiting GI recs Acute kidney injury- creatinine continues trending down likely prerenal due to hypovolemia, possible HRS creatinine trending down to 2.4, baseline 1.6. continue albumin q6h x 3 days (initiated 06/08) continue midodrine follow renal function, lytes avoid nephrotoxins- ok to resume lasix and spironolactone per nephro Nephrology following acute alcoholic hepatitis on a background of cirrhosis complicated by ascites, portal venous hypertension diagnostic paracentesis in the ED negative for SBP gastroenterology consult>Prednisolone taper per GI (Start 40mg daily, decrease by 10mg q3-4 days (intiated 06/07). 06/11 Hold steroid due to question GI Bleed (see below) LFTs trending down s/p paracentesis 06/07 with removal of 2L paracentesis prn - declined paracentesis 06/09, today wants paracentesis. therapeutic paracentesis ordered for 06/13 when IR returns, NPO after midnight Per nephrology, OK to resume lasix 20/spironolactone 50 (06/10) low sodium diet GI following Acute on chronic anemia ?r/t chronic disease vs blood loss hct slight drop 30.3 (?possible hemoconcentration on admission) --> 25.4 -->25.2 -->23.5% Stool occult blood pending Iron profile, vitamin b12/folic acid pending hold steroids for now gallbladder mass- ruled out seen by surgery, rec Bx - not a candidate for multiple reasons per IR, rec MRI MRI 06/08 negative for gallbladder mass, shows cholelithiasis without choledocolithiasis or biliary obtruction. Chronic thrombocytopenia due to cirrhosis hyponatremia due to cirrhosis. resolved Acute leukocytosis. Resolved afebrile, CXR unremarkable. No SBP. No evidence of infection Alcohol use disorder reports last alcoholic beverage was [place] but desires rehab addiction medicine consult pending Hypotension due to liver disease, Not sepsis. Given IVF and albumin. will hold metoprolol Monitor BP consider midodrine gout continue allopurinol GERD continue PPI DVT prophylaxis-SCD boots Attending Dr. Villatoro Full code continue hospital stay for management of acute kidney injury requiring IV fluid resuscitation, IV albumin, and close monitoring of renal function electrolyte levels as well as expert consultation Quality Stroke Does the patient have a stroke diagnosis?: No VTE Prior VTE?: No VTE Risk Level:: Medical - moderate - high VTE Device Contraindication: N/A - Device Ordered VTE Drug Contraindication: Treatment Not Indicated
[2023-06-12 07:29] LABS: MANUAL DIFF FLAG NO
[2023-06-12 07:44] VITALS: BP 102/50; PULSE 79; RESP 18; TEMP 36; O2SAT 98
[2023-06-12 07:50] LABS: Ammonia 50 umol/L (13-55)
[2023-06-12 07:57] LABS: Alanine Aminotransferase 30 U/L (0-31); Alkaline Phosphatase 155 U/L (39-117); Anion Gap 14 (12-20); Aspartate Amino Transferase 97 U/L (5-31); Basophils Percent Auto 0.1 % (0-2); Bilirubin Direct 5.6 mg/dL (0.0-0.5); Bilirubin Total 7.5 mg/dL (0.0-1.0); Blood Urea Nitrogen 78 mg/dL (9-16); Calcium 9.3 mg/dL (8.4-10.2); Carbon Dioxide 20 mmol/L (22-29); Chloride 106 mmol/L (96-108); Creatinine Clr Calc Pharmacy 19.5; Eosinophils Percent Auto 0.2 % (0-4); Estimated Glomerular Filt Rate 20; Glucose Random 102 mg/dL (60-115); Hematocrit 23.5 % (37.0-47.0); Hemoglobin 8.6 g/dl (12.0-16.0); Imm Gran Abs Auto 0.05 X10*3/uL (0.00-0.03); Imm Gran Pct Auto 0.6 % (0.0-0.4); Lymphocytes Absolute Auto 1.1 X10*3/uL (1.2-4.9); Mean Corpuscular HGB Conc 36.6 g/dl (31.0-35.0); Mean Corpuscular Hemoglobin 34.4 pg (27.0-33.0); Mean Platelet Volume 12.1 fL (9.4-12.3); Monocytes Absolute Auto 0.6 X10*3/uL (0.1-1.2); Monocytes Percent Auto 6.3 % (2-11); Neutrophils Absolute Auto 7.2 x10*3/uL (2.0-8.3); Neutrophils Percent Auto 80.8 % (45-73); Potassium 4.1 mmol/L (3.3-5.1); Red Cell Distribution Width 17.6 % (11.0-16.0); Sodium 136 mmol/L (135-145); Total Protein 6.3 g/dL (6.5-8.0); White Blood Count 8.9 X10*3/uL (4.8-10.8)
[2023-06-12 07:58] LABS: Platelet Count 72 X10*3/uL (160-400)
[2023-06-12] MEDS: Furosemide 20 MG TABLET PO (09:38)
[2023-06-12] MEDS: allopurinoL 300 MG TABLET PO (09:38)
[2023-06-12] MEDS: Magnesium Oxide 400 MG TABLET PO (09:38)
[2023-06-12] MEDS: Midodrine HCl 5 MG TABLET PO ×3 (09:38→20:12)
[2023-06-12] MEDS: Spironolactone 25 MG TABLET 50 MG PO (09:38)
[2023-06-12] MEDS: Lactulose 20 GM/30 ML SOLUTION PO (09:40)
[2023-06-12] MEDS: 0.9 % Sodium Chloride Flush 3 ML SYRINGE IVFLUSH ×3 (09:40→19:06)
[2023-06-12 10:22] LABS: Iron 59 mcg/dL (30-160); Percent Iron Saturation 63 % (15-50); Total Iron Binding Capacity 94 mcg/dL (228-428); Unsaturated Iron Binding 35 ug/dL
[2023-06-12 11:03] LABS: Folate 3.9 ng/mL (> or = 4.0)
[2023-06-12 11:09] LABS: Vitamin B12 1051 pg/mL (200-900)
--- NOTE | 2023-06-12 11:10 | PM.NEUROCN ---
History of Present Illness Data of Consult Service Date: 06/12/23 Primary Care Provider: Satish Sharma MD HPI Reason for consult: Encephalopathy 63-year-old female with history of alcoholic cirrhosis complicated by portal vein hypertension and ascites was admitted in hospital because of worsening of her underlying conditions and complications. She was treated with steroids but suspected to have GI bleed in that might be stopped. This consultation was requested for mental status evaluation. There was no sign of any seizure. No focal weakness was noted. Review of Systems Review of Systems: No recent cold or flu-like illness or headaches PMFSH Past Medical History Medical History Thrombocytopenia Portal venous hypertension Abdominal ascites Hyperlipidemia GERD (gastroesophageal reflux disease) Hypertension Cirrhosis Alcohol abuse Surgical History Surgical History Hx of section History of back surgery Hx of esophagogastroduodenoscopy Hx of colonoscopy Social History Social History Household Members: None Housing: Other Do you presently have visiting nurse or other home services: No Alcohol intake: former Patient Tobacco Use Status: Current everyday Tobacco user Tobacco use type: Cigarette Cigarette Packs Per Day: 1 Cigarettes Per Day: 20.0 Years Smoked: 40 Second Hand Smoke Exposure: No service: No Meds Allergies Allergy/AdvReac Type Severity Reaction Status Date / Time codeine [CODEINE] Allergy Unknown NAUSEA Verified 06/06/23 17:52 Active Medications: Current Medications Acetaminophen (Acetaminophen 325 Mg Tablet) 650 mg PO Q6H PRN PRN Reason: Pain, Mild (Pain Scale 1-3) Last Admin: 06/12/23 02:06 Dose: 650 mg Allopurinol (Allopurinol 300 Mg Tablet) 300 mg PO DAILY JOSE ALFREDO Last Admin: 06/12/23 09:38 Dose: 300 mg Diphenhydramine HCl (Diphenhydramine Hcl 25 Mg Capsule) 50 mg PO Q6H PRN PRN Reason: Itching Last Admin: 06/12/23 02:07 Dose: 50 mg Furosemide (Furosemide 20 Mg Tablet) 20 mg PO DAILY JOSE ALFREDO; Protocol Last Admin: 06/12/23 09:38 Dose: 20 mg Thiamine HCl 100 mg/ Sodium (Chloride) 101 mls @ 201.961 mls/hr IV DAILY JOSE ALFREDO Lactulose (Lactulose 20 Gm/30 Ml Solution) 20 gm PO BID JOSE ALFREDO Last Admin: 06/12/23 09:40 Dose: 20 gm Magnesium Oxide (Magnesium Oxide 400 Mg Tablet) 400 mg PO DAILY [facility] Last Admin: 06/12/23 09:38 Dose: 400 mg Metoprolol Succinate (Metoprolol Succinate Er 50 Mg Tab.Er.24h) 50 mg PO DAILY [facility]; Protocol Last Admin: 06/09/23 09:14 Dose: Not Given Midodrine (Midodrine Hcl 5 Mg Tablet) 5 mg PO TID [facility] Last Admin: 06/12/23 09:38 Dose: 5 mg Omeprazole (Omeprazole 20 Mg Capsule.Dr) 20 mg PO DAILY@0630 [facility] Last Admin: 06/12/23 05:37 Dose: 20 mg Ondansetron HCl (Ondansetron Hcl 4 Mg/2 Ml Vial) 4 mg IVPUSH Q8H PRN PRN Reason: Nausea and Vomiting Last Admin: 06/11/23 20:28 Dose: 4 mg Prednisolone Sodium Phosphate (Prednisolone Sodium Phosphate 15 Mg/5 Ml Solution) 40 mg PO DAILY [facility] Last Admin: 06/12/23 10:54 Dose: Not Given Senna (Sennosides 8.6 Mg Tablet) 17.2 mg PO BEDTIME PRN PRN Reason: Constipation Sodium Chloride (0.9 % Sodium Chloride Flush 3 Ml Syringe) 3 ml IVFLUSH QSHIFT [facility] Last Admin: 06/12/23 09:40 Dose: 3 ml Spironolactone (Spironolactone 25 Mg Tablet) 50 mg PO DAILY [facility]; Protocol Last Admin: 06/12/23 09:38 Dose: 50 mg Home Medications ?Medication ?Instructions ?Recorded ?Confirmed ?Last Taken ?Type allopurinol 300 mg tablet 300 mg PO DAILY 06/07/23 06/07/23 Unknown History amlodipine 5 mg tablet 5 mg PO DAILY 06/07/23 06/07/23 Unknown History furosemide 20 mg tablet 20 mg PO DAILY 06/07/23 06/07/23 Unknown History magnesium 250 mg tablet 250 mg PO DAILY 06/07/23 06/07/23 Unknown History metoprolol succinate 50 mg 50 mg PO DAILY 06/07/23 06/07/23 Unknown History tablet,extended release 24 hr omeprazole 20 mg capsule,delayed 20 mg PO DAILY 06/07/23 06/07/23 Unknown History release spironolactone 50 mg tablet 50 mg PO DAILY 06/07/23 06/07/23 Unknown History Physical Exam Vital Signs: Vital Signs: Last Vital Signs Temp 96.8 F 06/12/23 07:44 Pulse 79 06/12/23 07:44 Resp 18 06/12/23 07:44 BP 102/50 L 06/12/23 07:44 Pulse Ox 98 06/12/23 07:44 O2 Del Method Room Air 06/12/23 07:44 BMI result Body Mass Index 23.7 Neuro: Other: She is alert and awake with normal spontaneity of speech fluency comprehension and affect. She knows where she is in where she lived in following commands. Affect is normal. There is no sign of distress. Visual cisneros are normal. Face is symmetrical. There is no significant tremor, asterisks, or dysmetria. Deep tendon reflexes are absent with flexor plantars. Belly is protuberant. Results Labs 06/12/23 07:12 06/12/23 07:12 Labs: Short CBC 06/12/23 Range/Units 07:12 WBC 8.9 (4.8-10.8) X10*3/uL Hgb 8.6 L (12.0-16.0) g/dl Hct 23.5 L (37.0-47.0) % Plt Count 72 L (160-400) X10*3/uL BMP 06/12/23 07:12 Sodium 136 Potassium 4.1 Chloride 106 Carbon Dioxide 20 L BUN 78 H Creatinine 2.41 H Calcium 9.3 Liver Function 06/12/23 Range/Units 07:12 Total Bilirubin 7.5 H (0.0-1.0) mg/dL Direct Bilirubin 5.6 H (0.0-0.5) mg/dL AST 97 H (5-31) U/L ALT 30 (0-31) U/L Alkaline Phosphatase 155 H (39-117) U/L Albumin 4.0 (3.5-5.0) g/dL Microbiology Microbiology Results: Microbiology 06/06/23 19:42 Ascites Fluid Gram Stain - Final 06/06/23 19:42 Ascites Fluid Anaerobic Culture - Final NO GROWTH AFTER 5 DAYS 06/06/23 19:42 Ascites Fluid Body Fluid Culture - Final No growth after 2 days 06/07/23 11:12 Urine clean catch Urine Culture - Final Assessment and Plan (1) Hepatic encephalopathy: Status: Acute 63 years old woman with alcoholic liver disease, ongoing use of alcohol, moderate renal failure, and significant anemia. Patient's at this stage of liver disease and associated problems, may have [id number] cognitive dysfunction. Overall presentation was not suggestive of Wernicke's encephalopathy. Mainstay of management is treatment of underlying disease. Short-acting vitamins, such as thiamine folate and B complex vitamins supplementation is recommended. Procedures Date of Service Date of Service: 06/12/23
[2023-06-12 12:00] VITALS: BP 118/81; PULSE 106; RESP 18; TEMP 36.4; O2SAT 100
[2023-06-12 12:00] LABS: INTERNATIONAL NORM RATIO 1.5 (0.9-1.1); Prothrombin Time 17.9 SEC (11.1-13.3)
[2023-06-12 15:00] VITALS: BP 118/60; PULSE 84; RESP 16; TEMP 36.5; O2SAT 100
[2023-06-12] MEDS: ondansetron HCL 4 MG/2 ML VIAL IVPUSH (19:06)
[2023-06-12 19:43] VITALS: BP 117/57; PULSE 104; RESP 16; TEMP 36.4; O2SAT 96
[2023-06-12] MEDS: rifAXIMin 550 MG TABLET PO (20:12)
[2023-06-12] MEDS: Sennosides 8.6 MG TABLET 17.2 MG PO (21:53)
[2023-06-12 23:18] VITALS: BP 116/58; PULSE 100; RESP 18; TEMP 36.3; O2SAT 97
[2023-06-13 03:57] VITALS: BP 120/59; PULSE 97; RESP 18; TEMP 36.4; O2SAT 98
[2023-06-13] MEDS: Omeprazole 20 MG CAPSULE.DR PO ×2 (06:04→17:30)
[2023-06-13 06:43] LABS: MANUAL DIFF FLAG NO
[2023-06-13 06:56] LABS: Basophils Percent Auto 0.1 % (0-2); Eosinophils Absolute Auto 0.1 X10*3/uL (0.0-0.4); Eosinophils Percent Auto 0.7 % (0-4); Hematocrit 24.4 % (37.0-47.0); Hemoglobin 8.9 g/dl (12.0-16.0); Imm Gran Abs Auto 0.04 X10*3/uL (0.00-0.03); Imm Gran Pct Auto 0.4 % (0.0-0.4); Lymphocytes Absolute Auto 1.4 X10*3/uL (1.2-4.9); Lymphocytes Percent Auto 15.5 % (20-40); Mean Corpuscular HGB Conc 36.5 g/dl (31.0-35.0); Mean Corpuscular Hemoglobin 34.9 pg (27.0-33.0); Mean Corpuscular Volume 95.7 fL (80.0-98.0); Mean Platelet Volume 12.7 fL (9.4-12.3); Monocytes Absolute Auto 0.8 X10*3/uL (0.1-1.2); Monocytes Percent Auto 8.7 % (2-11); Neutrophils Absolute Auto 6.8 x10*3/uL (2.0-8.3); Neutrophils Percent Auto 74.6 % (45-73); Red Blood Count 2.55 X10*6/uL (4.20-5.50); Red Cell Distribution Width 18.4 % (11.0-16.0); White Blood Count 9.1 X10*3/uL (4.8-10.8)
[2023-06-13 06:59] LABS: Platelet Count 79 X10*3/uL (160-400)
[2023-06-13 07:18] VITALS: BP 120/57; PULSE 82; RESP 16; TEMP 36.3; O2SAT 96
[2023-06-13 07:19] LABS: Alanine Aminotransferase 60 U/L (0-31); Albumin Level 3.8 g/dL (3.5-5.0); Alkaline Phosphatase 169 U/L (39-117); Anion Gap 16 (12-20); Aspartate Amino Transferase 239 U/L (5-31); Bilirubin Direct 6.9 mg/dL (0.0-0.5); Bilirubin Total 9.3 mg/dL (0.0-1.0); Blood Urea Nitrogen 73 mg/dL (9-16); Calcium 9.3 mg/dL (8.4-10.2); Carbon Dioxide 19 mmol/L (22-29); Chloride 108 mmol/L (96-108); Creatinine Clr Calc Pharmacy 17.5; Estimated Glomerular Filt Rate 18; Glucose Random 103 mg/dL (60-115); Potassium 4.6 mmol/L (3.3-5.1); Sodium 138 mmol/L (135-145); Total Protein 6.4 g/dL (6.5-8.0)
[2023-06-13] MEDS: prednisoLONE sodium phosphate 15 MG/5 ML SOLUTION 40 MG PO (08:27)
[2023-06-13] MEDS: Thiamine HCL 100 MG in 0.9 % Sodium Chloride 100 ML 201.96 MG IV (08:27)
[2023-06-13] MEDS: allopurinoL 300 MG TABLET PO (08:29)
[2023-06-13] MEDS: Furosemide 20 MG TABLET PO (08:29)
[2023-06-13] MEDS: Folic Acid 1 MG TABLET PO (08:29)
[2023-06-13] MEDS: Midodrine HCl 5 MG TABLET PO ×3 (08:29→18:58)
[2023-06-13] MEDS: 0.9 % Sodium Chloride Flush 3 ML SYRINGE IVFLUSH ×2 (08:29→17:04)
[2023-06-13] MEDS: rifAXIMin 550 MG TABLET PO ×2 (08:29→18:58)
[2023-06-13] MEDS: Magnesium Oxide 400 MG TABLET PO (08:29)
[2023-06-13] MEDS: Spironolactone 25 MG TABLET 50 MG PO (08:29)
[2023-06-13 09:25] LABS: OBS Int Ctl Valid YES; OBS1 POSITIVE (NEGATIVE)
[2023-06-13 11:32] VITALS: BP 121/59; PULSE 95; RESP 16; TEMP 36.7; O2SAT 95
--- NOTE | 2023-06-13 14:06 | HO.PM.IMPN ---
Subjective Subjective Date of Service: 06/14/23 Interval History: encphalopathy Review of Systems patient seems similar to yesterday ,somewhat confused denies any chest pain or shortness of breath or abdominal pain or nausea vomiting. Had 1 formed bowel movement as per staff. No fever or hypoxia Physical Exam Vital Signs: Vital Signs: Last Vital Signs Temp 98.0 F 06/13/23 11:32 Pulse 95 06/13/23 11:32 Resp 16 06/13/23 11:32 BP 121/59 L 06/13/23 11:32 Pulse Ox 95 06/13/23 11:32 O2 Del Method Room Air 06/13/23 11:32 BMI result Body Mass Index 23.7 Appearance: Alert.she is aox2-3 ( she is confused about hospital name when redirected ,able to tell). but seems confused if detailed questioning. has jaundice,? Sclera icteric.? cvs: rrr, [id number] , no murmur res: clear to auscultation ,no rhonchii or wheezing abd: no rebound or guarding ,nt, bs present. has some ascitis ext pulses present , no cyanosis. neuro: nonfocal. Objective Data Active Medications Acetaminophen (Acetaminophen 325 Mg Tablet) 650 mg PO Q6H PRN PRN Reason: Pain, Mild (Pain Scale 1-3) Last Admin: 06/12/23 02:06 Dose: 650 mg Documented By: MAYCOL Allopurinol (Allopurinol 300 Mg Tablet) 300 mg PO DAILY [facility] Last Admin: 06/13/23 08:29 Dose: 300 mg Documented By: SAURAV Folic Acid (Folic Acid 1 Mg Tablet) 1 mg PO DAILY [facility] Last Admin: 06/13/23 08:29 Dose: 1 mg Documented By: SAURAV Furosemide (Furosemide 20 Mg Tablet) 20 mg PO DAILY [facility]; Protocol Last Admin: 06/13/23 08:29 Dose: 20 mg Documented By: SAURAV Thiamine HCl 100 mg/ Sodium (Chloride) 101 mls @ 201.961 mls/hr IV DAILY [facility] Last Infusion: 06/13/23 09:28 Dose: Infused Documented By: SAURAV Lactulose (Lactulose 20 Gm/30 Ml Solution) 20 gm PO BID [facility] Magnesium Oxide (Magnesium Oxide 400 Mg Tablet) 400 mg PO DAILY [facility] Last Admin: 06/13/23 08:29 Dose: 400 mg Documented By: SAURAV Metoprolol Succinate (Metoprolol Succinate Er 50 Mg Tab.Er.24h) 50 mg PO DAILY [facility]; Protocol Last Admin: 06/09/23 09:14 Dose: Not Given Documented By: CHANCE Non-Admin Reason: Decreased Blood Pressure Midodrine (Midodrine Hcl 5 Mg Tablet) 5 mg PO TID [facility] Last Admin: 06/13/23 08:29 Dose: 5 mg Documented By: SAURAV Omeprazole (Omeprazole 20 Mg Capsule.Dr) 20 mg PO BID@0630,1630 [facility] Last Admin: 06/13/23 06:04 Dose: 20 mg Documented By: PATRICIA Ondansetron HCl (Ondansetron Hcl 4 Mg/2 Ml Vial) 4 mg IVPUSH Q8H PRN PRN Reason: Nausea and Vomiting Last Admin: 06/12/23 19:06 Dose: 4 mg Documented By: PATRICIA Prednisolone Sodium Phosphate (Prednisolone Sodium Phosphate 15 Mg/5 Ml Solution) 30 mg PO DAILY [facility] Last Admin: 06/13/23 10:39 Dose: Not Given Documented By: SAURAV Non-Admin Reason: Physician Held Med Rifaximin (Rifaximin 550 Mg Tablet) 550 mg PO BID [facility] Last Admin: 06/13/23 08:29 Dose: 550 mg Documented By: SAURAV Senna (Sennosides 8.6 Mg Tablet) 17.2 mg PO BEDTIME PRN PRN Reason: Constipation Last Admin: 06/12/23 21:53 Dose: 17.2 mg Documented By: PATRICIA Sodium Chloride (0.9 % Sodium Chloride Flush 3 Ml Syringe) 3 ml IVFLUSH QSHIFT [facility] Last Admin: 06/13/23 08:29 Dose: 3 ml Documented By: SAURAV Spironolactone (Spironolactone 25 Mg Tablet) 50 mg PO DAILY [facility]; Protocol Last Admin: 06/13/23 08:29 Dose: 50 mg Documented By: SAURAV Labs 06/13/23 05:55 06/14/23 08:47 Labs: Laboratory Results - last 24 hr 06/13/23 06/13/23 05:55 09:00 MCV 95.7 MCH 34.9 H MCHC 36.5 H RDW 18.4 H Plt Count 79 L MPV 12.7 H Immature Gran % (Auto) 0.4 Neut % (Auto) 74.6 H Lymph % (Auto) 15.5 L [place] % (Auto) 8.7 Eos % (Auto) 0.7 Baso % (Auto) 0.1 Lymph # (Auto) 1.4 [place] # (Auto) 0.8 Eos # (Auto) 0.1 Baso # (Auto) 0.0 Abs Immat Gran (auto) 0.04 H Absolute Neuts (auto) 6.8 Absolute Nucleated RBC 0.000 Nucleated RBC % (auto) 0.0 Anion Gap 16 Estim Creat Clear Calc 17.5 Estimated GFR 18 Random Glucose 103 Calcium 9.3 Total Bilirubin 9.3 H Direct Bilirubin 6.9 H AST 239 H ALT 60 H Alkaline Phosphatase 169 H Total Protein 6.4 L Albumin 3.8 Stool Occult Blood POSITIVE Assessment and Plan (1) Hepatic encephalopathy: Status: Acute (2) Alcoholic hepatitis: Status: Acute (3) Acute kidney injury: Status: Acute Plan 63-year-old female with history of alcoholic cirrhosis complicated by portal venous hypertension and ascites, alcohol use disorder, gout, GERD admitted for further management of acute kidney injury and alcoholic hepatitis Acute metabolic vs toxic metabolic encephalopathy oriented x3, but slow to respond, aware of confusion ammonia 50. head ct-negative no fever or hypoxia Initiate lactulose 20g BID, titrate to 2-3 loose stools per day neurology consult- [id number] cognitive dysfunction,possible above is due to liverdisease . added vitamins ,moniter renal function. Has known cirrhosis, ?acute liver failure. However, LFTs trending down. Coags pending. Awaiting GI recs Acute kidney injury- creatinine continues trending slightly up. likely prerenal due to hypovolemia, possible HRS creatinine trending down to 2.6, baseline 1.6. continue albumin q6h x 3 days (initiated 06/08) and midodrine follow renal function, lytes. plan:avoid nephrotoxins hold resume lasix and spironolactone for now Nephrology aware to follow up. acute alcoholic hepatitis on a background of cirrhosis complicated by ascites, portal venous hypertension diagnostic paracentesis in the ED negative for SBP gastroenterology consult>Prednisolone taper per GI (Start 40mg daily, decrease by 10mg q3-4 days (intiated 06/07). 06/11 Hold steroid due to question GI Bleed (see below) inr 1.5 yesterday plan: lfts and cr trending up added albumin s/p paracentesis 06/07 with removal of 2L,paracentesis prn - declined paracentesis 06/09, today wants paracentesis. therapeutic paracentesis ordered for 06/13 when IR returns, NPO after midnight Per nephrology, hold lasix 20/spironolactone 50 (06/10) added lactulose back due to encephalopathy Acute on chronic anemia ?r/t chronic disease vs blood loss hct somewhat improving from yesterday(h/h is 8.9 /24.4) Stool occult blood positive Iron and iron sats ,tibc ,b12 -seems fine ,folate is low hold steroids for now,added folate ? steriod hold. gallbladder mass- ruled out seen by surgery, rec Bx - not a candidate for multiple reasons per IR, rec MRI MRI 06/08 negative for gallbladder mass, shows cholelithiasis without choledocolithiasis or biliary obtruction. Chronic thrombocytopenia due to cirrhosis hyponatremia due to cirrhosis. resolved Acute leukocytosis. Resolved afebrile, CXR unremarkable. No SBP. No evidence of infection Alcohol use disorder reports last alcoholic beverage was Easter Tuesday but desires rehab addiction medicine consult pending Hypotension due to liver disease, Not sepsis. Given IVF and albumin. will hold metoprolol Monitor BP consider midodrine gout continue allopurinol GERD continue PPI DVT prophylaxis-SCD boots Full code continue hospital stay for management of encephalopathy -multifcatorial ( hepatic encephalopathy,also metabolic component due to renal failure )acute kidney injury requiring IV albumin, anemia monitering and close monitoring of renal function electrolyte levels as well as expert consultation Quality Stroke Does the patient have a stroke diagnosis?: No VTE Prior VTE?: No VTE Risk Level:: Medical - moderate - high VTE Device Contraindication: N/A - Device Ordered VTE Drug Contraindication: Treatment Not Indicated
[2023-06-13] MEDS: Lactulose 20 GM/30 ML SOLUTION PO (14:10)
[2023-06-13 15:26] VITALS: BP 103/54; PULSE 97; RESP 16; TEMP 36.6; O2SAT 98
[2023-06-13] MEDS: Folic Acid 1 MG in 0.9 % Sodium Chloride 50 ML 100.4 MG IV (16:07)
[2023-06-13] MEDS: Phytonadione (Vit K1) Oral 10 MG/ML AMPUL PO (16:30)
[2023-06-13] MEDS: Thiamine HCL 200 MG in 0.9 % Sodium Chloride 100 ML 204 MG IV ×2 (16:42→20:59)
--- NOTE | 2023-06-13 16:53 | PM.GIPN ---
Subjective Subjective Date of Service: 06/13/23 Interval History: GI F/U. Patient denies pain. Alert. No sign of bleeding. Critical Care Time (minutes): 0 Physical Exam Vital Signs: Vital Signs: Last Vital Signs Temp 97.8 F 06/13/23 15:26 Pulse 97 06/13/23 15:26 Resp 16 06/13/23 15:26 BP 103/54 L 06/13/23 15:26 Pulse Ox 98 06/13/23 15:26 O2 Del Method Room Air 06/13/23 15:26 BMI result Body Mass Index 23.7 Const: General: cooperative, comfortable, no acute distress, alert and awake Nutritional Appearance: average body habitus Orientation/consciousness: oriented to person, oriented to place, oriented to time and patient oriented x3 HEENT: Other: Icteric sclera GI: Other: Abd-spft, +BS, NT Neuro: Other: Tremor vs. [place]ix[place] General: oriented to person, oriented to place, oriented to time and patient oriented x3 Objective Data Labs 06/13/23 05:55 06/13/23 05:55 Labs: Laboratory Results - last 24 hr 06/13/23 06/13/23 05:55 09:00 WBC 9.1 RBC 2.55 L Hgb 8.9 L Hct 24.4 L MCV 95.7 MCH 34.9 H MCHC 36.5 H RDW 18.4 H Plt Count 79 L MPV 12.7 H Immature Gran % (Auto) 0.4 Neut % (Auto) 74.6 H Lymph % (Auto) 15.5 L [place] % (Auto) 8.7 Eos % (Auto) 0.7 Baso % (Auto) 0.1 Lymph # (Auto) 1.4 [place] # (Auto) 0.8 Eos # (Auto) 0.1 Baso # (Auto) 0.0 Abs Immat Gran (auto) 0.04 H Absolute Neuts (auto) 6.8 Absolute Nucleated RBC 0.000 Nucleated RBC % (auto) 0.0 Sodium 138 Potassium 4.6 Chloride 108 Carbon Dioxide 19 L Anion Gap 16 BUN 73 H Creatinine 2.68 H Estim Creat Clear Calc 17.5 Estimated GFR 18 Random Glucose 103 Calcium 9.3 Total Bilirubin 9.3 H Direct Bilirubin 6.9 H AST 239 H ALT 60 H Alkaline Phosphatase 169 H Total Protein 6.4 L Albumin 3.8 Stool Occult Blood POSITIVE Microbiology Microbiology Results: Microbiology 06/06/23 19:42 Ascites Fluid Gram Stain - Final 06/06/23 19:42 Ascites Fluid Anaerobic Culture - Final NO GROWTH AFTER 5 DAYS 06/06/23 19:42 Ascites Fluid Body Fluid Culture - Final No growth after 2 days 06/07/23 11:12 Urine clean catch Urine Culture - Final Procedures Date of Service Date of Service: 06/13/23 Progress Note: A&P Assessment and plan (1) Alcoholic hepatitis: Status: Acute (2) Cirrhosis of liver with ascites: Status: Acute Assessment and Plan: Imp: Overall, patient seems stable. No signs of GI bleeding nor SBP. Mental status seems stable without any definitive encephalopathy. Her LFT's and alcohol-induced hepatitis seem improved and stable on the prednisolone, although the numbers may be plateauing. Rec: Follow labs, including LFT's, PT/INR, chemistries, BUN/Cr, etc. Continue the prednisolone with the recommended taper. Continue oral PPI. Would use Xifaxan for any component of encephalopathy and avoid Lactulose if possible due to risk of worsening renal function with any diarrhea and dehydration. D/W patient and told her to avoid alcohol buttermaker continuous churn. D/W Dr. Cain. Thanks Time Spent With Patient Time: Total time managing care of this patient today ____ minutes. Quality Stroke Does the patient have a stroke diagnosis?: No VTE Prior VTE?: No VTE Risk Level:: Medical - moderate - high VTE Device Contraindication: N/A - Device Ordered VTE Drug Contraindication: Treatment Not Indicated
[2023-06-13 19:03] VITALS: BP 146/65; PULSE 100; RESP 18; TEMP 36.4; O2SAT 97
[2023-06-14] VITALS (7 sets, daily range): BP systolic 111–135; BP diastolic 56–88; PULSE 82–103; RESP 16–18; TEMP 36.2–37.7; O2SAT 96–99
[2023-06-14] MEDS: 0.9 % Sodium Chloride Flush 3 ML SYRINGE IVFLUSH ×3 (00:20→23:15)
[2023-06-14] MEDS: Omeprazole 20 MG CAPSULE.DR PO ×2 (05:31→16:02)
[2023-06-14] MEDS: Thiamine HCL 200 MG in 0.9 % Sodium Chloride 100 ML 204 MG IV ×3 (05:31→23:04)
--- NOTE | 2023-06-14 07:00 | CA_ITS ---
Transthoracic Echocardiogram Patient (Last, First, Middle): Cathy Roland A Gender: Female Date of : 1960 Age: 63 Procedure Date: 06/14/2023 Procedure Type: Transthoracic Echocardiogram Location: S3E Height: 160.02 cm Weight: 60.78 kg BSA: 1.63 m2 Heart Rate: bpm BP: 135 / 63 mmHg Vice President Of Product Marketing: Referring MD: Maynor Cain MD Symptoms: ?chf/cardiomyopathy Study Quality: Adequate ECG Rhythm: Sinus Conclusions: - The left ventricular systolic function is hyperdynamic. The visually estimated ejection fraction is >70%. - No obvious valvular pathology seen on this study. Findings Left Ventricle Normal left ventricular cavity size. There is mildly increased left ventricular wall thickness. The left ventricular systolic function is hyperdynamic. The visually estimated ejection fraction is >70%. There is no evidence of regional wall motion abnormalities. Diastolic function is normal for age. Right Ventricle Normal right ventricular cavity size and systolic function. Atria The left atrium is moderately dilated. The right atrium is normal in size. Aortic Valve There is a normal trileaflet aortic valve. There is no aortic valve stenosis. There is no aortic valve regurgitation. Mitral Valve The mitral valve appears normal. There is no mitral valve regurgitation. There is no mitral valve stenosis. Pulmonic Valve The pulmonic valve is likely normal. Tricuspid Valve There is trace tricuspid valve regurgitation. Mild pulmonary hypertension is present. Great Vessels The asc aorta is normal in size. Venous The inferior vena cava is normal in size and collapses greater than 50% with inspiration. Pericardium/Pleural There is no evidence of pericardial effusion. Prior Study Comparison No prior study available for comparison. Recommendations, Care & Conclusions No obvious valvular pathology seen on this study. Measurements 2D Linear Measurements IVSd: 1.14 0.6-0.9/0.6-1.0 cm LVIDd: 3.51 3.9-5.3/4.2-5.9 cm LVIDd Index: 2.15 2.4-3.2/2.2-3.1 cm/m2 LVIDs: 2.33 2.0-3.6 cm LVPWd: 1.10 0.7-1.1 cm Ao Root: 2.60 2.1-3.5 cm LA Diam: 3.20 2.7-3.8/3.0-4.0 cm LAIDs Index: 1.96 1.5-2.3 cm/m2 LV Mass: 152.74 67-162/88-224 g LV Mass Index: 93.71 43-95/49-115 g/m2 LVOT Diam: 1.90 3.0+(-)1.3 cm 2D Systolic Function EF 4C: 78.60 >55% EF 2C: 73.90 >55% EF BiP: 77.50 >55% Mitral Valve MV VTI: 0.36 MV Pk Fidencio: 1.49 MV Mn Fidencio: 0.73 MV Pk Grad: 9.00 MV Mn Grad: 3.00 MV Pk E: 1.11 MV PK A: 0.78 MV Decel Time: 187.00 E/A: 1.40 E'Lateral: 8.49 E'Medial: 9.79 E/E' Med: 11.30 E/E' Lat: 13.10 PHT: 55.00 MVA PHT: 4.00 MVA Continuity: 2.63 Decel Pepin: 5.90 Aortic Valve AoV Pk Fidencio: 1.92 AoV Mn Fidencio: 1.39 AoV VTI: 0.43 AoV Pk Grad: 15.00 Aov Mn Grad: 9.00 MIRIAM Cont.VTI: 2.22 LVOT LVOT Pk Fidencio: 1.54 LVOT Mn Fidencio: 0.94 LVOT VTI: 0.33 LVOT Pk Grad: 9.00 LVOT Mn Grad: 4.00 LVOT Diam: 1.90 LVOT Area: 2.84 Diastolic Function MV Pk E: 1.11 MV Pk A: 0.78 E/A: 1.40 E'Medial: 9.79 E/E' Med: 11.30 E' Laterial: 8.49 E/E' Lat: 13.10 Right Ventricle TAPSE (mm): 39.00 TVS' Fidencio: 20.00 Tricuspid Valve TR Pk Fidencio: 3.16 TR Pk Grad: 40.00 RA Press: 3.00 RVSP: 43.00 Great Vessels Aorta Ao Root-2D: 2.60 2.0-3.7 cm Ao Asc: 2.80 2.1-3.4 cm Pulmonary Valve PV Pk Fidencio: 1.39 Peak PV Grad: 8.00 Updated in Other Vendor System with Status of Final William Davalos MD electronically signed on 06/14/2023 11:51:17 AM with status of Final
[2023-06-14] MEDS: allopurinoL 300 MG TABLET PO (08:12)
[2023-06-14] MEDS: prednisoLONE sodium phosphate 15 MG/5 ML SOLUTION 30 MG PO (08:12)
[2023-06-14] MEDS: rifAXIMin 550 MG TABLET PO ×2 (08:12→23:02)
[2023-06-14] MEDS: Furosemide 20 MG TABLET PO (08:12)
[2023-06-14] MEDS: Midodrine HCl 5 MG TABLET PO ×3 (08:12→23:02)
[2023-06-14] MEDS: Folic Acid 1 MG in 0.9 % Sodium Chloride 50 ML 100.4 MG IV (08:12)
[2023-06-14] MEDS: Magnesium Oxide 400 MG TABLET PO (08:12)
[2023-06-14 08:39] LABS: HBS Num1 3.49 mIU/mL (0-7.99); HBc Num1 0.11 S/CO (0.00-0.79); HBsAGNum1 0.38 S/CO (0.00-0.99); Hepatitis A Antibody IgM 0.18 Index (0-0.79); Hepatitis B Core Antibody Nonreactive (Nonreactive); Hepatitis B Surface Antigen Negative (Negative); ~HepC Num1 0.09 S/CO (0.00-0.79); ~Hepatitis A Antibody IgM Nonreactive (Nonreactive); ~Hepatitis B Surface Antibody NONREACTIVE (Nonreactive); ~Hepatitis C Antibody Nonreactive (Nonreactive)
[2023-06-14 09:28] LABS: Alanine Aminotransferase 49 U/L (0-31); Alkaline Phosphatase 173 U/L (39-117); Anion Gap 16 (12-20); Aspartate Amino Transferase 81 U/L (5-31); Bilirubin Total 10.5 mg/dL (0.0-1.0); Blood Urea Nitrogen 69 mg/dL (9-16); Calcium 9.7 mg/dL (8.4-10.2); Carbon Dioxide 18 mmol/L (22-29); Chloride 111 mmol/L (96-108); Estimated Glomerular Filt Rate 20; Glucose Random 161 mg/dL (60-115); Potassium 4.2 mmol/L (3.3-5.1); Sodium 141 mmol/L (135-145); Total Protein 6.7 g/dL (6.5-8.0)
[2023-06-14] MEDS: Lidocaine HCl 1 % MPF 5 ML VIAL 10 ML SUBCUT (09:59)
[2023-06-14] MEDS: Albumin Human 25 % 100 ML IV ×3 (10:19→23:02)
--- NOTE | 2023-06-14 11:00 | HO.PM.IMPN ---
Subjective Subjective Date of Service: 06/14/23 Interval History: hepatic encephalopathy ,nando on ckd ? hepatorenal Review of Systems mental status somewhat improving has 1 bm denies any sob or chest pain Physical Exam Vital Signs: Vital Signs: Last Vital Signs Temp 99.8 F 06/14/23 07:39 Pulse 103 H 06/14/23 07:39 Resp 16 06/14/23 07:39 BP 111/59 L 06/14/23 07:39 Pulse Ox 98 06/14/23 07:39 O2 Del Method Room Air 06/14/23 07:39 BMI result Body Mass Index 23.7 Appearance: Alert.she is aox3 has jaundice,? Sclera icteric.? cvs: rrr, [id number] , no murmur res: clear to auscultation ,no rhonchii or wheezing abd: no rebound or guarding ,nt, bs present. has some ascitis ext pulses present , no cyanosis. neuro: nonfocal. Objective Data Active Medications Acetaminophen (Acetaminophen 325 Mg Tablet) 650 mg PO Q6H PRN PRN Reason: Pain, Mild (Pain Scale 1-3) Last Admin: 06/12/23 02:06 Dose: 650 mg Documented By: MAYCOL Allopurinol (Allopurinol 300 Mg Tablet) 300 mg PO DAILY [facility] Last Admin: 06/14/23 08:12 Dose: 300 mg Documented By: KASSIDY Furosemide (Furosemide 20 Mg Tablet) 20 mg PO DAILY [facility]; Protocol Last Admin: 06/14/23 08:12 Dose: 20 mg Documented By: KASSIDY Thiamine HCl 200 mg/ Sodium (Chloride) 102 mls @ 204 mls/hr IV Q8H [facility] Last Infusion: 06/14/23 06:09 Dose: Infused Documented By: ANTOIC Folic Acid 1 mg/ Sodium (Chloride) 50.2 mls @ 100.4 mls/hr IV DAILY [facility] Last Infusion: 06/14/23 09:28 Dose: Infused Documented By: KASSIDY Albumin Human (Kedbumin 25 %) 100 mls @ 100 mls/hr IV Q6H [facility] Stop: 06/15/23 04:29 Last Admin: 06/14/23 10:19 Dose: 100 mls/hr Documented By: KASSIDY Lactulose (Lactulose 20 Gm/30 Ml Solution) 20 gm PO BID [facility] Magnesium Oxide (Magnesium Oxide 400 Mg Tablet) 400 mg PO DAILY [facility] Last Admin: 06/14/23 08:12 Dose: 400 mg Documented By: KASSIDY Metoprolol Succinate (Metoprolol Succinate Er 50 Mg Tab.Er.24h) 50 mg PO DAILY [facility]; Protocol Last Admin: 06/09/23 09:14 Dose: Not Given Documented By: DOBROB Non-Admin Reason: Decreased Blood Pressure Midodrine (Midodrine Hcl 5 Mg Tablet) 5 mg PO TID [facility] Last Admin: 06/14/23 08:12 Dose: 5 mg Documented By: KASSIDY Omeprazole (Omeprazole 20 Mg Capsule.Dr) 20 mg PO BID@0630,1630 [facility] Last Admin: 06/14/23 05:31 Dose: 20 mg Documented By: ANTOIC Ondansetron HCl (Ondansetron Hcl 4 Mg/2 Ml Vial) 4 mg IVPUSH Q8H PRN PRN Reason: Nausea and Vomiting Last Admin: 06/12/23 19:06 Dose: 4 mg Documented By: PATRICIA Prednisolone Sodium Phosphate (Prednisolone Sodium Phosphate 15 Mg/5 Ml Solution) 30 mg PO DAILY [facility] Last Admin: 06/14/23 08:12 Dose: 30 mg Documented By: KASSIDY Rifaximin (Rifaximin 550 Mg Tablet) 550 mg PO BID [facility] Last Admin: 06/14/23 08:12 Dose: 550 mg Documented By: KASSIDY Senna (Sennosides 8.6 Mg Tablet) 17.2 mg PO BEDTIME PRN PRN Reason: Constipation Last Admin: 06/12/23 21:53 Dose: 17.2 mg Documented By: PATRICIA Sodium Chloride (0.9 % Sodium Chloride Flush 3 Ml Syringe) 3 ml IVFLUSH QSHIFT [facility] Last Admin: 06/14/23 08:12 Dose: 3 ml Documented By: KASSIDY Spironolactone (Spironolactone 25 Mg Tablet) 50 mg PO DAILY [facility]; Protocol Last Admin: 06/13/23 08:29 Dose: 50 mg Documented By: GRAZIC Labs 06/13/23 05:55 06/14/23 08:47 Labs: Laboratory Results - last 24 hr 06/12/23 06/14/23 11:33 08:47 Hold Purple Top SEE NOTE Anion Gap 16 Estim Creat Clear Calc 19.0 Estimated GFR 20 Random Glucose 161 H Calcium 9.7 Total Bilirubin 10.5 H AST 81 H ALT 49 H Alkaline Phosphatase 173 H Total Protein 6.7 Albumin 4.0 Hepatitis A IgM Ab Nonreactive Hep Bs Antigen Negative Hep Bs Antibody NONREACTIVE Hep B Core Total Ab Nonreactive Hepatitis C Ab (EIA) Nonreactive Assessment and Plan (1) Hepatic encephalopathy: Status: Acute (2) Alcoholic hepatitis: Status: Acute (3) Acute kidney injury: Status: Acute Plan 63-year-old female with history of alcoholic cirrhosis complicated by portal venous hypertension and ascites, alcohol use disorder, gout, GERD admitted for further management of acute kidney injury and alcoholic hepatitis Acute metabolic vs toxic metabolic encephalopathy oriented x3, but slow to respond, aware of confusion ammonia 50. head ct-negative no fever or hypoxia Initiate lactulose 20g BID, titrate to 2-3 loose stools per day neurology consult- [id number] cognitive dysfunction,possible above is due to liverdisease . added vitamins ,moniter renal function. Acute kidney injury- creatinine continues trending slightly up. likely prerenal due to hypovolemia, possible HRS creatinine trending down to 2.6, baseline 1.6. continue albumin q6h x 3 days (initiated 06/08) and midodrine follow renal function, lytes. plan:avoid nephrotoxins hold resume lasix and spironolactone for now Nephrology aware to follow up. acute alcoholic hepatitis on a background of cirrhosis complicated by ascites, portal venous hypertension diagnostic paracentesis in the ED negative for SBP gastroenterology consult>Prednisolone taper per GI (Start 40mg daily, decrease by 10mg q3-4 days (intiated 06/07). 06/11 Hold steroid due to question GI Bleed (see below) inr 1.5 plan: lfts and cr trending up s/p paracentesis today,added albumin s/p paracentesis 06/07 with removal of 2L,paracentesis prn - declined paracentesis 06/09, today wants paracentesis. therapeutic paracentesis ordered for 06/13 when IR returns, NPO after midnight Per nephrology, hold lasix 20/spironolactone 50 (06/10). added lactulose back due to encephalopathy Acute on chronic anemia ?r/t chronic disease vs blood loss hct somewhat improving from yesterday(h/h is 8.9 /24.4) Stool occult blood positive Iron and iron sats ,tibc ,b12 -seems fine ,folate is low hold steroids for now,added folate ? steriod hold. gallbladder mass- ruled out seen by surgery, rec Bx - not a candidate for multiple reasons per IR, rec MRI MRI 06/08 negative for gallbladder mass, shows cholelithiasis without choledocolithiasis or biliary obtruction. Chronic thrombocytopenia due to cirrhosis hyponatremia due to cirrhosis. resolved Acute leukocytosis. Resolved afebrile, CXR unremarkable. No SBP. No evidence of infection Alcohol use disorder reports last alcoholic beverage was Easter Tuesday but desires rehab addiction medicine consult pending Hypotension due to liver disease, Not sepsis. Given IVF and albumin. will hold metoprolol Monitor BP consider midodrine gout continue allopurinol GERD continue PPI DVT prophylaxis-SCD boots Full code continue hospital stay for management of encephalopathy -multifcatorial ( hepatic encephalopathy,also metabolic component due to renal failure )acute kidney injury requiring IV albumin, anemia monitering and close monitoring of renal function electrolyte levels as well as expert consultation Quality Stroke Does the patient have a stroke diagnosis?: No VTE Prior VTE?: No VTE Risk Level:: Medical - moderate - high VTE Device Contraindication: N/A - Device Ordered VTE Drug Contraindication: Treatment Not Indicated
[2023-06-14] MEDS: Lactulose 20 GM/30 ML SOLUTION PO ×2 (11:35→23:02)
--- NOTE | 2023-06-14 13:24 | P.PNNP_ITS ---
Subjective Subjective Date of Service: 06/14/23 Interval history: hepatic encephalopathy ,celestine on ckd ? hepatorenal Physical Exam 2 Vital Signs: Vital Signs: Last Vital Signs Temp 98.2 F 06/14/23 11:41 Pulse 84 06/14/23 11:41 Resp 16 06/14/23 11:41 BP 119/58 L 06/14/23 11:41 Pulse Ox 97 06/14/23 11:41 O2 Del Method Room Air 06/14/23 07:39 BMI result Body Mass Index 23.7 Const: General: comfortable and no acute distress O rientation/consciousness: patient oriented x3 HEENT: Head: Yes normocephalic Mouth: Normal oral and palatal mucosa present Eyes: EOM: EOMs intact bilaterally Neck: Neck: Yes supple Resp: Auscultation: clear to auscultation bilaterally Cardio: Jugular venous distension: no JVD Rate: regular rate GI: Palpation (GI): Soft to palpation Auscultation: normal bowel sounds : General: Yes no CVA tenderness Back/Spine/Pelvis: Back: no CVA tenderness Skin: General skin exam: no rashes or lesions noted Neuro: General: patient oriented x3 and moves all extremities Extrem: General: Yes no pedal edema Objective Data Labs 06/13/23 05:55 06/14/23 08:47 Labs: Laboratory Results - last 24 hr 06/12/23 06/14/23 11:33 08:47 Hold Purple Top SEE NOTE Sodium 141 Potassium 4.2 Chloride 111 H Carbon Dioxide 18 L Anion Gap 16 BUN 69 H Creatinine 2.48 H Estim Creat Clear Calc 19.0 Estimated GFR 20 Random Glucose 161 H Calcium 9.7 Total Bilirubin 10.5 H AST 81 H ALT 49 H Alkaline Phosphatase 173 H Total Protein 6.7 Albumin 4.0 Hepatitis A IgM Ab Nonreactive Hep Bs Antigen Negative Hep Bs Antibody NONREACTIVE Hep B Core Total Ab Nonreactive Hepatitis C Ab (EIA) Nonreactive Microbiology Microbiology Results: Microbiology 06/06/23 19:42 Ascites Fluid Gram Stain - Final 06/06/23 19:42 Ascites Fluid Anaerobic Culture - Final NO GROWTH AFTER 5 DAYS 06/06/23 19:42 Ascites Fluid Body Fluid Culture - Final No growth after 2 days 06/07/23 11:12 Urine clean catch Urine Culture - Final Procedures Date of Service Date of Service: 06/14/23 Assessment & Plan Assessment and plan (1) Hepatic encephalopathy: Status: Acute (2) Alcoholic hepatitis: Status: Acute (3) Acute kidney injury: Status: Acute Plan 63-year-old female with history of alcoholic cirrhosis complicated by portal venous hypertension and ascites, alcohol use disorder, gout, GERD admitted for further management of acute kidney injury and alcoholic hepatitis s/p Acute metabolic vs toxic metabolic encephalopathy oriented x3, but slow to respond, aware of confusion ammonia 50. head ct-negative CELESTINE superimposed on CKD Hypoperfusion with tubular injury Has HRS Renal function has marginally improve eGFR is 19 No overt s/s of uremia and no indication for dialysis today s/p paracentesis today, Overall progrnosis remians guarded Time Spent With Patient Time: Total time managing care of this patient today ____ minutes. Progress Note: Quality Stroke Does the patient have a stroke diagnosis?: No
[2023-06-14 16:32] LABS: B Type Natriuretic Peptide 3634 pg/mL (<100)
--- NOTE | 2023-06-14 16:48 | P.CDIM_ITS ---
PROVIDER RESPONSE TEXT: To clarify, the appropriate diagnosis supported by the clinical indicators: CKD, please provide stage: celestine on possible ckd 3 QUERY TEXT: PHYSICIAN'S DOCUMENTATION REQUEST Date of Query: 06/14/2023 12:20 PM EDT Patient Name: Cathy Roland Admit Date: 06/07/2023 Dear Maynor Cain, A review of the medical record indicates additional documentation may be needed. Please review below and update the documentation accordingly. Clinical Indicators: Nephrology progress note 06/08 - CELESTINE superimposed on CKD in the setting of Cirrhosis Clinically volume depleted. follow renal function, lytes. Please clarify which of the following accurately represents the patient's stage of the noted CKD: CKD, please provide stage 1, 2, 3a, 3b, 4 etc Other (explain) Clinically unable to determine (explain) Thank you, Aye Bell, CCS, CDIS Use of terms such as suspected, likely, concern for, or probable (associated with a specific diagnosi s that is being evaluated, monitored, or treated as if it exists) are acceptable and can be coded in the inpatient se tting, when documented at the time of discharge. Please use your independent medical judgment in providing your response. THIS QUERY IS PART OF THE PERMANENT MEDICAL RECORD
[2023-06-15] VITALS (22 sets, daily range): BP systolic 111–159; BP diastolic 56–100; PULSE 94–131; RESP 16–22; TEMP 36.4–37.2; O2SAT 93–97
[2023-06-15] MEDS: Albumin Human 25 % 100 ML IV ×3 (03:07→21:55)
[2023-06-15] MEDS: Omeprazole 20 MG CAPSULE.DR PO (05:15)
[2023-06-15] MEDS: Thiamine HCL 200 MG in 0.9 % Sodium Chloride 100 ML IV ×3 (05:18→21:34)
--- NOTE | 2023-06-15 05:26 | PC.NURSE ---
after 12 midnight it was reported to nurse pt had some blood in stool. small amount did not witnessed now pt went to [facility] visible blood bright red in stool reported to dr Kelly new orders received pt to KEEP NPO
[2023-06-15] MEDS: Pantoprazole Sodium 40 MG/10 ML VIAL 80 MG IVPUSH (06:10)
[2023-06-15] MEDS: Morphine Sulfate 2 MG/ML CARTRIDGE IVPUSH ×2 (06:32→11:02)
[2023-06-15] MEDS: Octreotide Acetate 100 MCG/ML AMPUL 50 MCG IVPUSH (07:08)
--- NOTE | 2023-06-15 07:09 | PC.NURSE ---
pt was also c/o abdominal cramping morphine 2 mg iv ordered and given sandostatin to be delivered from pharmacy report given to day rn
[2023-06-15] MEDS: 0.9 % Sodium Chloride Flush 3 ML SYRINGE IVFLUSH (07:10)
[2023-06-15 07:16] LABS: Hemoglobin 7.2 g/dl (12.0-16.0); INTERNATIONAL NORM RATIO 1.5 (0.9-1.1); Mean Corpuscular HGB Conc 35.8 g/dl (31.0-35.0); Mean Corpuscular Hemoglobin 34.3 pg (27.0-33.0); Mean Corpuscular Volume 95.7 fL (80.0-98.0); Mean Platelet Volume 12.9 fL (9.4-12.3); Prothrombin Time 17.7 SEC (11.1-13.3); Red Cell Distribution Width 19.1 % (11.0-16.0); White Blood Count 9.2 X10*3/uL (4.8-10.8)
[2023-06-15 07:35] LABS: Alanine Aminotransferase 35 U/L (0-31); Albumin Level 4.3 g/dL (3.5-5.0); Alkaline Phosphatase 161 U/L (39-117); Anion Gap 14 (12-20); Aspartate Amino Transferase 52 U/L (5-31); Bilirubin Total 8.2 mg/dL (0.0-1.0); Blood Urea Nitrogen 61 mg/dL (9-16); Calcium 9.6 mg/dL (8.4-10.2); Carbon Dioxide 21 mmol/L (22-29); Chloride 112 mmol/L (96-108); Creatinine Clr Calc Pharmacy 20.9; Estimated Glomerular Filt Rate 22; Glucose Random 117 mg/dL (60-115); Magnesium 2.2 mg/dL (1.6-2.6); Potassium 4.2 mmol/L (3.3-5.1); Sodium 143 mmol/L (135-145); Total Protein 6.4 g/dL (6.5-8.0)
[2023-06-15 08:02] LABS: Hematocrit 20.1 % (37.0-47.0); Platelet Count 74 X10*3/uL (160-400)
[2023-06-15] MEDS: Octreotide Acetate 500 MCG in 0.9 % Sodium Chloride 500 ML 50.1 MCG IVCONT ×2 (08:28→18:42)
[2023-06-15] MEDS: Dextrose 5 % and 0.9 % NaCl 1,000 ML 50 ML IVCONT (09:46)
[2023-06-15] MEDS: Folic Acid 1 MG in 0.9 % Sodium Chloride 50 ML 100.4 MG IV (09:46)
[2023-06-15] MEDS: ondansetron HCL 4 MG/2 ML VIAL IVPUSH ×2 (09:56→21:54)
--- NOTE | 2023-06-15 10:39 | MHC.CM.PN ---
Per ROUNDS discussion, Patient is not yet medically cleared for dc (blood in stool, made NPO, ? of transfer to ICU); dc plan is TBD and CM will follow.
[2023-06-15] MEDS: cefTRIAXone sodium 1 GM in 0.9 % Sodium Chloride 50 ML IV (11:51)
--- NOTE | 2023-06-15 12:32 | HO.PM.IMPN ---
Subjective Subjective Date of Service: 06/15/23 Interval History: hepatic encephalopathy ,nando on ckd ? hepatorenal ,?Gi bleed Patient had episode of rectal gross bleed last night. Review of Systems has abd pain -diffuse no nausea or vomiting Physical Exam Vital Signs: Vital Signs: Last Vital Signs Temp 97.5 F 06/15/23 11:44 Pulse 94 06/15/23 11:44 Resp 16 06/15/23 11:44 BP 115/56 L 06/15/23 11:44 Pulse Ox 95 06/15/23 09:11 O2 Del Method Room Air 06/15/23 09:11 BMI result Body Mass Index 23.7 Appearance: Alert.? Oriented X3,generally weak . cvs: rrr, [id number] , no murmur res: clear to auscultation ,no rhonchii or wheezing abd: no rebound or guarding ,abd pain mild diffuse improving, bs present. ext pulses present , no cyanosis . neuro: axo3 , nonfocal. Objective Data Active Medications Acetaminophen (Acetaminophen 325 Mg Tablet) 650 mg PO Q6H PRN PRN Reason: Pain, Mild (Pain Scale 1-3) Last Admin: 06/12/23 02:06 Dose: 650 mg Documented By: MAYCOL Allopurinol (Allopurinol 300 Mg Tablet) 300 mg PO DAILY [facility] Last Admin: 06/15/23 07:20 Dose: Not Given Documented By: KASSIDY Non-Admin Reason: NPO Furosemide (Furosemide 20 Mg Tablet) 20 mg PO DAILY [facility]; Protocol Last Admin: 06/15/23 07:20 Dose: Not Given Documented By: KASSIDY Non-Admin Reason: NPO Thiamine HCl 200 mg/ Sodium (Chloride) 102 mls @ 204 mls/hr IV Q8H [facility] Last Infusion: 06/15/23 06:18 Dose: Infused Documented By: AMOS Folic Acid 1 mg/ Sodium (Chloride) 50.2 mls @ 100.4 mls/hr IV DAILY [facility] Last Infusion: 06/15/23 11:07 Dose: Infused Documented By: YIFAN Octreotide Acetate 500 mcg/ (Sodium Chloride) 501 mls @ 50.1 mls/hr IVCONT .Q10H [facility] Last Admin: 06/15/23 08:28 Dose: 50 mcg/hr, 50.1 mls/hr Documented By: KASSIDY Dextrose/Sodium Chloride (D5ns) 1,000 mls @ 50 mls/hr IVCONT .Q20H [facility] Last Admin: 06/15/23 09:46 Dose: 50 mls/hr Documented By: YIFAN Albumin Human (Kedbumin 25 %) 100 mls @ 100 mls/hr IV Q6H [facility] Stop: 06/16/23 06:44 Ceftriaxone Sodium 1 gm/ (Sodium Chloride) 50 mls @ 100 mls/hr IV Q24H [facility] Last Admin: 06/15/23 11:51 Dose: 100 mls/hr Documented By: YIFAN Lactulose (Lactulose 20 Gm/30 Ml Solution) 20 gm PO BID [facility] Last Admin: 06/15/23 07:21 Dose: Not Given Documented By: KASSIDY Non-Admin Reason: NPO Magnesium Oxide (Magnesium Oxide 400 Mg Tablet) 400 mg PO DAILY [facility] Last Admin: 06/15/23 07:21 Dose: Not Given Documented By: KASSIDY Non-Admin Reason: NPO Metoprolol Succinate (Metoprolol Succinate Er 50 Mg Tab.Er.24h) 50 mg PO DAILY [facility]; Protocol Last Admin: 06/09/23 09:14 Dose: Not Given Documented By: DOBROB Non-Admin Reason: Decreased Blood Pressure Midodrine (Midodrine Hcl 5 Mg Tablet) 5 mg PO TID [facility] Last Admin: 06/15/23 07:21 Dose: Not Given Documented By: KASSIDY Non-Admin Reason: NPO Ondansetron HCl (Ondansetron Hcl 4 Mg/2 Ml Vial) 4 mg IVPUSH Q8H PRN PRN Reason: Nausea and Vomiting Last Admin: 06/15/23 09:56 Dose: 4 mg Documented By: YIFAN Pantoprazole Sodium (Pantoprazole Sodium 40 Mg/10 Ml Vial) 40 mg IVPUSH BID@0630,1630 [facility] Rifaximin (Rifaximin 550 Mg Tablet) 550 mg PO BID [facility] Last Admin: 06/15/23 07:21 Dose: Not Given Documented By: KASSIDY Non-Admin Reason: NPO Senna (Sennosides 8.6 Mg Tablet) 17.2 mg PO BEDTIME PRN PRN Reason: Constipation Last Admin: 06/12/23 21:53 Dose: 17.2 mg Documented By: PATRICIA Sodium Chloride (0.9 % Sodium Chloride Flush 3 Ml Syringe) 3 ml IVFLUSH QSHIFT [facility] Last Admin: 06/15/23 07:10 Dose: 3 ml Documented By: KASSIDY Spironolactone (Spironolactone 25 Mg Tablet) 50 mg PO DAILY [facility]; Protocol Last Admin: 06/13/23 08:29 Dose: 50 mg Documented By: SAURAV Labs 06/15/23 06:16 06/15/23 06:16 Labs: Laboratory Results - last 24 hr 06/14/23 06/15/23 06/15/23 15:53 06:16 08:14 MCV 95.7 MCH 34.3 H MCHC 35.8 H RDW 19.1 H Plt Count 74 L MPV 12.9 H Absolute Nucleated RBC 0.000 Nucleated RBC % (auto) 0.0 Smear Path Review SEE NOTE PT 17.7 H INR 1.5 H Anion Gap 14 Estim Creat Clear Calc 20.9 Estimated GFR 22 Random Glucose 117 H Calcium 9.6 Magnesium 2.2 Total Bilirubin 8.2 H AST 52 H ALT 35 H Alkaline Phosphatase 161 H B-Natriuretic Peptide 3634 H Total Protein 6.4 L Albumin 4.3 Blood Type B Positive Antibody Screen NEGATIVE Crossmatch See Detail Assessment and Plan (1) Hepatic encephalopathy: Status: Acute (2) Alcoholic hepatitis: Status: Acute (3) Acute kidney injury: Status: Acute Plan 63-year-old female with history of alcoholic cirrhosis complicated by portal venous hypertension and ascites, alcohol use disorder, gout, GERD admitted for further management of acute kidney injury and alcoholic hepatitis Acute metabolic vs toxic metabolic encephalopathy now has gi bleed oriented x3, but slow to respond, aware of confusion ammonia 50. head ct-negative no fever or hypoxia ct abd -portal htn bleeding scan -negative rectal bleed , npo ,gentle hydration , no new bleeding episode so far since morning plan: ppi,octerotide. transfuse 2 ffp ,1 platlets ,1 prbc and moniter cbc q6h continue lactulose moniter CBC closely ,Added ceftriaxone for prophylax. GI and icUfollowing Acute kidney injury- creatinine continues trending slightly up. likely prerenal due to hypovolemia, possible HRS creatinine trending down to 2.6, baseline 1.6. continue albumin. follow renal function, lytes. plan:avoid nephrotoxins hold lasix and spironolactone . Nephrology aware to follow up. acute alcoholic hepatitis on a background of cirrhosis complicated by ascites, portal venous hypertension diagnostic paracentesis in the ED negative for SBP gastroenterology consult>Prednisolone taper per GI (Start 40mg daily, decrease by 10mg q3-4 days (intiated 06/07). 06/11 Hold steroid due to question GI Bleed (see below) inr 1.5 plan: lfts and cr trending up s/p paracentesis today,added albumin s/p paracentesis 06/07 with removal of 2L,paracentesis prn - declined paracentesis 06/09, today wants paracentesis. therapeutic paracentesis ordered for 06/13 when IR returns, NPO after midnight Per nephrology, hold lasix 20/spironolactone 50 (06/10). hold steriods due to bleed Acute blood loss due to gi bleed on chronic anemia: Stool occult blood positive Iron and iron sats ,tibc ,b12 -seems fine ,folate is low hold steroids for now,continue folate gallbladder mass- ruled out seen by surgery, rec Bx - not a candidate for multiple reasons per IR, rec MRI MRI 06/08 negative for gallbladder mass, shows cholelithiasis without choledocolithiasis or biliary obtruction. Chronic thrombocytopenia due to cirrhosis hyponatremia due to cirrhosis. resolved Acute leukocytosis. Resolved afebrile, CXR unremarkable. No SBP. No evidence of infection Alcohol use disorder reports last alcoholic beverage was [place] but desires rehab addiction medicine consult pending Hypotension due to liver disease, Not sepsis. Given IVF and albumin. will hold metoprolol Monitor BP. gout continue allopurinol GERD continue PPI DVT prophylaxis-SCD boots Full code continue hospital stay for management of encephalopathy - acute blood loss on ch anemia -need IV ppi, octreotide, blood transfusions, close monitoring of CBC, multifcatorial ( hepatic encephalopathy,also metabolic component due to renal failure )acute kidney injury requiring IV albumin, anemia monitering and close monitoring of renal function electrolyte levels as well as expert consultation Quality Stroke Does the patient have a stroke diagnosis?: No VTE Prior VTE?: No VTE Risk Level:: Medical - moderate - high VTE Device Contraindication: N/A - Device Ordered VTE Drug Contraindication: Treatment Not Indicated
--- NOTE | 2023-06-15 12:40 | P.PNGI_ITS ---
Subjective Subjective Date of Service: 06/15/23 Interval History: History from patient's RN, Hospitalist staff, and EMR Patient had a single episode of BRBPR early this AM but none since then. There was no melena. There has been no vomiting. Patient more lethargic, but easily aroused. Critical Care Time (minutes): 0 Physical Exam 2 Vital Signs: Vital Signs: Last Vital Signs Temp 97.5 F 06/15/23 11:44 Pulse 94 06/15/23 11:44 Resp 16 06/15/23 11:44 BP 115/56 L 06/15/23 11:44 Pulse Ox 95 06/15/23 09:11 O2 Del Method Room Air 06/15/23 09:11 BMI result Body Mass Index 23.7 Const: General: comfortable, no acute distress, confusion, ill appearing and lethargic Orientation/consciousness: confusion and lethargic Eyes: Other: Icteric sclera GI: Other: Abdomen-Soft but distended with ascites, mild diffuse tenderness Skin: Other: Jaundice Neuro: General: confusion Extrem: Other: No edema Objective Data Labs 06/15/23 06:16 06/15/23 06:16 Labs: Laboratory Results - last 24 hr 06/14/23 06/15/23 06/15/23 15:53 06:16 08:14 WBC 9.2 RBC 2.10 L Hgb 7.2 L Hct 20.1 L* MCV 95.7 MCH 34.3 H MCHC 35.8 H RDW 19.1 H Plt Count 74 L MPV 12.9 H Absolute Nucleated RBC 0.000 Nucleated RBC % (auto) 0.0 Smear Path Review SEE NOTE PT 17.7 H INR 1.5 H Sodium 143 Potassium 4.2 Chloride 112 H Carbon Dioxide 21 L Anion Gap 14 BUN 61 H Creatinine 2.24 H Estim Creat Clear Calc 20.9 Estimated GFR 22 Random Glucose 117 H Calcium 9.6 Magnesium 2.2 Total Bilirubin 8.2 H AST 52 H ALT 35 H Alkaline Phosphatase 161 H B-Natriuretic Peptide 3634 H Total Protein 6.4 L Albumin 4.3 Blood Type B Positive Antibody Screen NEGATIVE Crossmatch See Detail Microbiology Microbiology Results: Microbiology 06/06/23 19:42 Ascites Fluid Gram Stain - Final 06/06/23 19:42 Ascites Fluid Anaerobic Culture - Final NO GROWTH AFTER 5 DAYS 06/06/23 19:42 Ascites Fluid Body Fluid Culture - Final No growth after 2 days 06/07/23 11:12 Urine clean catch Urine Culture - Final Procedures Date of Service Date of Service: 06/15/23 Progress Note: A&P Assessment and plan (1) Hepatic encephalopathy: Status: Acute (2) Alcoholic hepatitis: Status: Acute (3) Cirrhosis of liver with ascites: Status: Acute (4) Lower GI bleed: Status: Acute Assessment and Plan: Imp/Rec: Cirrhosis, ascites, EtOH-hepatits, hepatic encephalopathy. Overall things seem to be worsening with a poor prognosis. Would continue supportive care, check CT results, continue antibiotics, continue Xifaxan. I don't think a paracentesis to R/O SBP would be helpful since she is already on antibiotics. Would try to avoid overly aggressive measures given her poor prognosis and advanced liver disease. Lower GI bleed. Diff dx: Rectal varix, diverticular, ischemic colits. Presently stable without further bleeding since before 7AM. Agree with transfusion of blood products. Would hold Octreotide. Hold off on bleeding scan given no active bleeding in > 5 hours. Would hold off on colonoscopy given that she is stable in this regard, as well as her overall condition. D/W Dr. Cain. Thanks Time Spent With Patient Time: Total time managing care of this patient today ____ minutes. Quality Stroke Does the patient have a stroke diagnosis?: No VTE Prior VTE?: No VTE Risk Level:: Medical - moderate - high VTE Device Contraindication: N/A - Device Ordered VTE Drug Contraindication: Treatment Not Indicated
--- NOTE | 2023-06-15 13:03 | P.CONCC_ITS ---
History of Present Illness Data of Consult Service Date: 06/15/23 Primary Care Provider: Satish Sharma MD HPI Reason for consult: Level of care 63-year-old lady with underlying alcoholic cirrhosis complicated by portal venous hypertension and ascites admitted on 06/06/2023 with acute kidney injury and alcoholic hepatitis. Hospital course significant for need for recurrent paracentesis and slowly improving renal function, however with worsening encephalopathy and bright red blood per rectum likely secondary to lower GI bleed. Review of Systems 2 Review of Systems: Yes Unobtainable due to mental status PMFSH Past Medical History Medical History Thrombocytopenia Portal venous hypertension Abdominal ascites Hyperlipidemia GERD (gastroesophageal reflux disease) Hypertension Cirrhosis Alcohol abuse Surgical History Surgical History Hx of section History of back surgery Hx of esophagogastroduodenoscopy Hx of colonoscopy Social History Social History Household Members: None Housing: Other Do you presently have visiting nurse or other home services: No Alcohol intake: former Patient Tobacco Use Status: Current everyday Tobacco user Tobacco use type: Cigarette Cigarette Packs Per Day: 1 Cigarettes Per Day: 20.0 Years Smoked: 40 Second Hand Smoke Exposure: No service: No Meds Allergies Allergy/AdvReac Type Severity Reaction Status Date / Time codeine [CODEINE] Allergy Unknown NAUSEA Verified 06/06/23 17:52 Active Medications: Current Medications Acetaminophen (Acetaminophen 325 Mg Tablet) 650 mg PO Q6H PRN PRN Reason: Pain, Mild (Pain Scale 1-3) Last Admin: 06/12/23 02:06 Dose: 650 mg Allopurinol (Allopurinol 300 Mg Tablet) 300 mg PO DAILY JOSE ALFREDO Last Admin: 06/15/23 07:20 Dose: Not Given Furosemide (Furosemide 20 Mg Tablet) 20 mg PO DAILY JOSE ALFREDO; Protocol Last Admin: 06/15/23 07:20 Dose: Not Given Thiamine HCl 200 mg/ Sodium (Chloride) 102 mls @ 204 mls/hr IV Q8H JOS EALFREDO Last Infusion: 06/15/23 06:18 Dose: Infused Folic Acid 1 mg/ Sodium (Chloride) 50.2 mls @ 100.4 mls/hr IV DAILY JOSE ALFREDO Last Infusion: 06/15/23 11:07 Dose: Infused Octreotide Acetate 500 mcg/ (Sodium Chloride) 501 mls @ 50.1 mls/hr IVCONT .Q10H [facility] Last Admin: 06/15/23 08:28 Dose: 50 mcg/hr, 50.1 mls/hr Dextrose/Sodium Chloride (D5ns) 1,000 mls @ 50 mls/hr IVCONT .Q20H [facility] Last Admin: 06/15/23 09:46 Dose: 50 mls/hr Albumin Human (Kedbumin 25 %) 100 mls @ 100 mls/hr IV Q6H [facility] Stop: 06/16/23 06:44 Ceftriaxone Sodium 1 gm/ (Sodium Chloride) 50 mls @ 100 mls/hr IV Q24H [facility] Last Infusion: 06/15/23 12:51 Dose: Infused Lactulose (Lactulose 20 Gm/30 Ml Solution) 20 gm PO BID [facility] Last Admin: 06/15/23 07:21 Dose: Not Given Magnesium Oxide (Magnesium Oxide 400 Mg Tablet) 400 mg PO DAILY [facility] Last Admin: 06/15/23 07:21 Dose: Not Given Metoprolol Succinate (Metoprolol Succinate Er 50 Mg Tab.Er.24h) 50 mg PO DAILY [facility]; Protocol Last Admin: 06/09/23 09:14 Dose: Not Given Midodrine (Midodrine Hcl 5 Mg Tablet) 5 mg PO TID [facility] Last Admin: 06/15/23 07:21 Dose: Not Given Ondansetron HCl (Ondansetron Hcl 4 Mg/2 Ml Vial) 4 mg IVPUSH Q8H PRN PRN Reason: Nausea and Vomiting Last Admin: 06/15/23 09:56 Dose: 4 mg Pantoprazole Sodium (Pantoprazole Sodium 40 Mg/10 Ml Vial) 40 mg IVPUSH BID@0630,1630 [facility] Rifaximin (Rifaximin 550 Mg Tablet) 550 mg PO BID [facility] Last Admin: 06/15/23 07:21 Dose: Not Given Senna (Sennosides 8.6 Mg Tablet) 17.2 mg PO BEDTIME PRN PRN Reason: Constipation Last Admin: 06/12/23 21:53 Dose: 17.2 mg Sodium Chloride (0.9 % Sodium Chloride Flush 3 Ml Syringe) 3 ml IVFLUSH QSHIFT [facility] Last Admin: 06/15/23 07:10 Dose: 3 ml Spironolactone (Spironolactone 25 Mg Tablet) 50 mg PO DAILY [facility]; Protocol Last Admin: 06/13/23 08:29 Dose: 50 mg Home Medications ?Medication ?Instructions ?Recorded ?Confirmed ?Last Taken ?Type allopurinol 300 mg tablet 300 mg PO DAILY 06/07/23 06/07/23 Unknown History amlodipine 5 mg tablet 5 mg PO DAILY 06/07/23 06/07/23 Unknown History furosemide 20 mg tablet 20 mg PO DAILY 06/07/23 06/07/23 Unknown History magnesium 250 mg tablet 250 mg PO DAILY 06/07/23 06/07/23 Unknown History metoprolol succinate 50 mg 50 mg PO DAILY 06/07/23 06/07/23 Unknown History tablet,extended release 24 hr omeprazole 20 mg capsule,delayed 20 mg PO DAILY 06/07/23 06/07/23 Unknown History release spironolactone 50 mg tablet 50 mg PO DAILY 06/07/23 06/07/23 Unknown History Physical Exam 2 Vital Signs: Vital Signs: Last Vital Signs Temp 97.5 F 06/15/23 11:44 Pulse 94 06/15/23 11:44 Resp 16 06/15/23 11:44 BP 115/56 L 06/15/23 11:44 Pulse Ox 95 06/15/23 09:11 O2 Del Method Room Air 06/15/23 09:11 BMI result Body Mass Index 23.7 Const: General: no acute distress, awake, lethargic (Arousal) and other (Jaundiced) Orientation/consciousness: lethargic (Arousal) Eyes: Sclerae: scleral abnormal (Icteric) EOM: EOMs intact bilaterally Neck: Neck: Yes no lymphadenopathy, Yes trachea midline and Yes supple Resp: Effort & Inspection: normal respiratory effort and no respiratory distress Auscultation: clear to auscultation bilaterally Cardio: Rate: regular rate Rhythm: regular rhythm Heart sounds: no gallops, no murmurs and no rubs GI: Palpation (GI): Soft to palpation and Other GI palpation findings present ( Nontender) Auscultation: normal bowel sounds Extrem: General: Yes no pedal edema, No clubbing, No cyanosis and Yes edema (Trace) Results Labs 06/15/23 06:16 06/15/23 06:16 Labs: Short CBC 06/15/23 Range/Units 06:16 WBC 9.2 (4.8-10.8) X10*3/uL Hgb 7.2 L (12.0-16.0) g/dl Hct 20.1 L* (37.0-47.0) % Plt Count 74 L (160-400) X10*3/uL BMP 06/15/23 06:16 Sodium 143 Potassium 4.2 Chloride 112 H Carbon Dioxide 21 L BUN 61 H Creatinine 2.24 H Calcium 9.6 Liver Function 06/15/23 Range/Units 06:16 Total Bilirubin 8.2 H (0.0-1.0) mg/dL AST 52 H (5-31) U/L ALT 35 H (0-31) U/L Alkaline Phosphatase 161 H (39-117) U/L Albumin 4.3 (3.5-5.0) g/dL Microbiology Microbiology Results: Microbiology 06/06/23 19:42 Ascites Fluid Gram Stain - Final 06/06/23 19:42 Ascites Fluid Anaerobic Culture - Final NO GROWTH AFTER 5 DAYS 06/06/23 19:42 Ascites Fluid Body Fluid Culture - Final No growth after 2 days 06/07/23 11:12 Urine clean catch Urine Culture - Final Assessment and Plan (1) Hepatic encephalopathy: Status: Acute (2) Lower GI bleed: Status: Acute (3) Cirrhosis of liver with ascites: Status: Acute (4) Acute kidney injury: Status: Acute Plan Impression: 63-year-old lady with underlying alcoholic cirrhosis admitted with decompensated liver failure/hepatorenal syndrome now with worsening hepatic encephalopathy and lower GI bleed. Recommendations: Agree with colloidal support and empiric antibiotics. Consider lactulose/Xifaxan after resolution of or GI bleed. At this time hemodynamics are normal and respiratory status is stable. Does not require intensive care level of service at this time. Please notify for re-evaluation, if patient's condition changes.
[2023-06-15] MEDS: Phytonadione (Vit K1) 10 MG in 0.9 % Sodium Chloride 50 ML 51 MG IV (13:58)
[2023-06-15] MEDS: Pantoprazole Sodium 40 MG/10 ML VIAL IVPUSH (16:03)
[2023-06-15] MEDS: Furosemide 20 MG/2 ML VIAL IVPUSH (18:29)
--- NOTE | 2023-06-15 20:19 | P.PNNP_ITS ---
Subjective Subjective Date of Service: 06/15/23 Interval history: Patient had episode of rectal gross bleed last night. All recent data reviewed Physical Exam 2 Vital Signs: Vital Signs: Last Vital Signs Temp 98.2 F 06/15/23 19:13 Pulse 131 H 06/15/23 19:13 Resp 22 H 06/15/23 19:13 BP 149/100 H 06/15/23 19:13 Pulse Ox 97 06/15/23 19:13 O2 Del Method Room Air 06/15/23 19:13 BMI result Body Mass Index 23.7 Const: General: comfortable and no acute distress HEENT: Head: Yes normocephalic Mouth: Normal oral and palatal mucosa present Eyes: EOM: EOMs intact bilaterally Neck: Neck: Yes supple Resp: Auscultation: clear to auscultation bilaterally Cardio: Jugular venous distension: no JVD Rate: regular rate GI: Palpation (GI): Soft to palpation Auscultation: normal bowel sounds : General: Yes no CVA tenderness Back/Spine/Pelvis: Back: no CVA tenderness Skin: General skin exam: no rashes or lesions noted Neuro: General: moves all extremities Objective Data Labs 06/15/23 06:16 06/15/23 06:16 Labs: Laboratory Results - last 24 hr 06/15/23 06/15/23 06:16 08:14 WBC 9.2 RBC 2.10 L Hgb 7.2 L Hct 20.1 L* MCV 95.7 MCH 34.3 H MCHC 35.8 H RDW 19.1 H Plt Count 74 L MPV 12.9 H Absolute Nucleated RBC 0.000 Nucleated RBC % (auto) 0.0 Smear Path Review SEE NOTE PT 17.7 H INR 1.5 H Sodium 143 Potassium 4.2 Chloride 112 H Carbon Dioxide 21 L Anion Gap 14 BUN 61 H Creatinine 2.24 H Estim Creat Clear Calc 20.9 Estimated GFR 22 Random Glucose 117 H Calcium 9.6 Magnesium 2.2 Total Bilirubin 8.2 H AST 52 H ALT 35 H Alkaline Phosphatase 161 H Total Protein 6.4 L Albumin 4.3 Blood Type B Positive Antibody Screen NEGATIVE Crossmatch See Detail Microbiology Microbiology Results: Microbiology 06/06/23 19:42 Ascites Fluid Gram Stain - Final 06/06/23 19:42 Ascites Fluid Anaerobic Culture - Final NO GROWTH AFTER 5 DAYS 06/06/23 19:42 Ascites Fluid Body Fluid Culture - Final No growth after 2 days 06/07/23 11:12 Urine clean catch Urine Culture - Final Procedures Date of Service Date of Service: 06/15/23 Assessment & Plan Assessment and plan (1) Acute kidney injury: Status: Acute Plan Acute Kidney Injury due to tubular injury No reason to suspect AIN/GN Was given IV Albumin Had paracentesis; Renal function improving No indication for renal replacement C/W rest of current supportive care for now Labs AM. Shall closely follow up Progress Note: Quality Stroke Does the patient have a stroke diagnosis?: No
[2023-06-15] MEDS: Lactulose 20 GM/30 ML SOLUTION PO (21:34)
[2023-06-15] MEDS: Midodrine HCl 5 MG TABLET PO (21:34)
[2023-06-15] MEDS: rifAXIMin 550 MG TABLET PO (21:34)
[2023-06-15] MEDS: Metoprolol Tartrate 12.5 MG HALFTAB PO (21:34)
[2023-06-15] MEDS: guaiFENesin 200 MG/10 ML 10 ML LIQUID PO (22:26)
[2023-06-16] VITALS (12 sets, daily range): BP systolic 131–149; BP diastolic 64–80; PULSE 93–123; RESP 18–20; TEMP 36.4–37.6; O2SAT 87–96
[2023-06-16] MEDS: 0.9 % Sodium Chloride Flush 3 ML SYRINGE IVFLUSH ×4 (01:23→20:37)
[2023-06-16 02:13] LABS: Hematocrit 27.9 % (37.0-47.0); Hemoglobin 9.6 g/dl (12.0-16.0); Mean Corpuscular HGB Conc 34.4 g/dl (31.0-35.0); Mean Corpuscular Hemoglobin 33.6 pg (27.0-33.0); Mean Corpuscular Volume 97.6 fL (80.0-98.0); Mean Platelet Volume 11.1 fL (9.4-12.3); NRBC Pct Auto 0.3 /100WBC (0.0-0.2); Red Blood Count 2.86 X10*6/uL (4.20-5.50); Red Cell Distribution Width 18.6 % (11.0-16.0); White Blood Count 11.2 X10*3/uL (4.8-10.8)
[2023-06-16 02:16] LABS: Platelet Count 65 X10*3/uL (160-400)
[2023-06-16 02:20] LABS: INTERNATIONAL NORM RATIO 1.4 (0.9-1.1); Prothrombin Time 17.3 SEC (11.1-13.3)
[2023-06-16] MEDS: Octreotide Acetate 500 MCG in 0.9 % Sodium Chloride 500 ML 50.1 MCG IVCONT ×3 (02:44→23:56)
[2023-06-16] MEDS: Dextrose 5 % and 0.9 % NaCl 1,000 ML 50 ML IVCONT (02:45)
[2023-06-16] MEDS: Albumin Human 25 % 100 ML IV ×2 (04:02→08:38)
[2023-06-16] MEDS: guaiFENesin 200 MG/10 ML 10 ML LIQUID PO ×3 (04:04→18:31)
[2023-06-16] MEDS: Thiamine HCL 200 MG in 0.9 % Sodium Chloride 100 ML IV ×3 (06:02→22:35)
[2023-06-16] MEDS: Pantoprazole Sodium 40 MG/10 ML VIAL IVPUSH ×2 (06:02→16:32)
[2023-06-16] MEDS: Metoprolol Tartrate 12.5 MG HALFTAB PO ×2 (07:57→20:37)
[2023-06-16] MEDS: Midodrine HCl 5 MG TABLET PO ×3 (07:57→20:37)
[2023-06-16] MEDS: allopurinoL 300 MG TABLET PO (07:57)
[2023-06-16] MEDS: Magnesium Oxide 400 MG TABLET PO (07:57)
[2023-06-16] MEDS: rifAXIMin 550 MG TABLET PO ×2 (07:57→20:36)
[2023-06-16] MEDS: Folic Acid 1 MG in 0.9 % Sodium Chloride 50 ML 100.4 MG IV (07:58)
[2023-06-16] MEDS: Lactulose 20 GM/30 ML SOLUTION PO ×2 (07:58→20:37)
[2023-06-16 08:45] LABS: Hematocrit 27.4 % (37.0-47.0); Hemoglobin 9.7 g/dl (12.0-16.0); Mean Corpuscular HGB Conc 35.4 g/dl (31.0-35.0); Mean Corpuscular Hemoglobin 34.3 pg (27.0-33.0); Mean Corpuscular Volume 96.8 fL (80.0-98.0); Mean Platelet Volume 12.5 fL (9.4-12.3); Platelet Count 73 X10*3/uL (160-400); Red Blood Count 2.83 X10*6/uL (4.20-5.50); White Blood Count 11.5 X10*3/uL (4.8-10.8)
[2023-06-16 11:07] LABS: Anion Gap 14 (12-20); Blood Urea Nitrogen 60 mg/dL (9-16); Calcium 9.5 mg/dL (8.4-10.2); Carbon Dioxide 23 mmol/L (22-29); Chloride 116 mmol/L (96-108); Estimated Glomerular Filt Rate 23; Glucose Random 163 mg/dL (60-115); Sodium 149 mmol/L (135-145)
--- NOTE | 2023-06-16 11:47 | HO.PM.IMPN ---
Subjective Subjective Date of Service: 06/16/23 Interval History: Gi bleed Review of Systems mental status similar as yesterday abd pain improving has 2 episode of melena desatration ,some sob Physical Exam Vital Signs: Vital Signs: Last Vital Signs Temp 97.6 F 06/16/23 11:12 Pulse 104 H 06/16/23 11:12 Resp 20 06/16/23 11:12 BP 133/64 06/16/23 11:12 Pulse Ox 87 L 06/16/23 11:12 O2 Del Method Room Air 06/16/23 07:11 BMI result Body Mass Index 23.7 Appearance: Alert.? Oriented X3,generally weak .some sob cvs: rrr, [id number] , no murmur res: clear to auscultation ,no rhonchii or wheezing abd: no rebound or guarding ,abd pain significantly better ,has some discomfort, bs present,has some ascitis. ext pulses present , no cyanosis . neuro: axo3 , nonfocal. Objective Data Active Medications Acetaminophen (Acetaminophen 325 Mg Tablet) 650 mg PO Q6H PRN PRN Reason: Pain, Mild (Pain Scale 1-3) Last Admin: 06/12/23 02:06 Dose: 650 mg Allopurinol (Allopurinol 300 Mg Tablet) 300 mg PO DAILY JOSE ALFREDO Last Admin: 06/16/23 07:57 Dose: 300 mg Documented By: YIFAN Furosemide (Furosemide 20 Mg/2 Ml Vial) 20 mg IVPUSH Q12H JOSE ALFREDO; Protocol Guaifenesin (Guaifenesin 200 Mg/10 Ml 10 Ml Liquid) 10 ml PO Q4H PRN PRN Reason: Cough Last Admin: 06/16/23 04:04 Dose: 10 ml Documented By: BHARGAV Comments: dry persistent cough Thiamine HCl 200 mg/ Sodium (Chloride) 102 mls @ 204 mls/hr IV Q8H [facility] ALFREDO Last Infusion: 06/16/23 06:39 Dose: Infused Documented By: BHARGAV Folic Acid 1 mg/ Sodium (Chloride) 50.2 mls @ 100.4 mls/hr IV DAILY JOSE ALFREDO Last Infusion: 06/16/23 08:30 Dose: Infused Documented By: YIFAN Octreotide Acetate 500 mcg/ (Sodium Chloride) 501 mls @ 50.1 mls/hr IVCONT .Q10H [facility]SE ALFREDO Last Admin: 06/16/23 08:41 Dose: Not Given Documented By: YIFAN Non-Admin Reason: bag still full Dextrose/Sodium Chloride (D5ns) 1,000 mls @ 50 mls/hr IVCONT .Q20H [facility] Last Admin: 06/16/23 02:45 Dose: 50 mls/hr Documented By: BHARGAV Ceftriaxone Sodium 1 gm/ (Sodium Chloride) 50 mls @ 100 mls/hr IV Q24H [facility] Last Infusion: 06/15/23 12:51 Dose: Infused Documented By: YIFAN Lactulose (Lactulose 20 Gm/30 Ml Solution) 20 gm PO BID [facility] Last Admin: 06/16/23 07:58 Dose: 20 gm Documented By: YIFAN Magnesium Oxide (Magnesium Oxide 400 Mg Tablet) 400 mg PO DAILY [facility] Last Admin: 06/16/23 07:57 Dose: 400 mg Documented By: YIFAN Metoprolol Tartrate (Metoprolol Tartrate 12.5 Mg Halftab) 12.5 mg PO BID [facility]; Protocol Last Admin: 06/16/23 07:57 Dose: 12.5 mg Documented By: YIFAN Midodrine (Midodrine Hcl 5 Mg Tablet) 5 mg PO TID [facility] Last Admin: 06/16/23 07:57 Dose: 5 mg Documented By: YIFAN Ondansetron HCl (Ondansetron Hcl 4 Mg/2 Ml Vial) 4 mg IVPUSH Q8H PRN PRN Reason: Nausea and Vomiting Last Admin: 06/15/23 21:54 Dose: 4 mg Documented By: BHARGAV Comments: pt reports feels nauseated. Pantoprazole Sodium (Pantoprazole Sodium 40 Mg/10 Ml Vial) 40 mg IVPUSH BID@0630,1630 [facility] Last Admin: 06/16/23 06:02 Dose: 40 mg Documented By: BHARGAV Rifaximin (Rifaximin 550 Mg Tablet) 550 mg PO BID [facility] Last Admin: 06/16/23 07:57 Dose: 550 mg Documented By: YIFAN Senna (Sennosides 8.6 Mg Tablet) 17.2 mg PO BEDTIME PRN PRN Reason: Constipation Last Admin: 06/12/23 21:53 Dose: 17.2 mg Documented By: PATRICIA Sodium Chloride (0.9 % Sodium Chloride Flush 3 Ml Syringe) 3 ml IVFLUSH QSHIFT [facility] Last Admin: 06/16/23 07:58 Dose: 3 ml Documented By: YIFAN Spironolactone (Spironolactone 25 Mg Tablet) 25 mg PO DAILY [facility]; Protocol Labs 06/16/23 07:52 06/16/23 10:24 Labs: Laboratory Results - last 24 hr 06/15/23 06/16/23 06/16/23 08:14 02:08 07:52 MCV 97.6 96.8 MCH 33.6 H 34.3 H MCHC 34.4 35.4 H RDW 18.6 H 19.0 H Plt Count 65 L 73 L MPV 11.1 12.5 H Absolute Nucleated RBC 0.030 H 0.000 Nucleated RBC % (auto) 0.3 H 0.0 PT 17.3 H INR 1.4 H Anion Gap Estim Creat Clear Calc Estimated GFR Random Glucose Calcium Blood Type B Positive Antibody Screen NEGATIVE Crossmatch See Detail 06/16/23 10:24 MCV MCH MCHC RDW Plt Count MPV Absolute Nucleated RBC Nucleated RBC % (auto) PT INR Anion Gap 14 Estim Creat Clear Calc 22.0 Estimated GFR 23 Random Glucose 163 H Calcium 9.5 Blood Type Antibody Screen Crossmatch Assessment and Plan (1) Lower GI bleed: Status: Acute (2) Hepatic encephalopathy: Status: Acute (3) Alcoholic hepatitis: Status: Acute Assessment and Plan: 63-year-old female with history of alcoholic cirrhosis complicated by portal venous hypertension and ascites, alcohol use disorder, gout, GERD admitted for further management of acute kidney injury and alcoholic hepatitis Acute metabolic vs toxic metabolic encephalopathy now has gi bleed -has 1-2 episode of melena ,no jocelyne bleedin oriented x3, but slow to respond, aware of confusion ammonia normal,head ct-negative ,no fever ct abd -portal htn ,bleeding scan -negative h/h stable in range : 9.7 /27.4 plan: ppi,octerotide., received transfuse 2 ffp ,1 platlets ,2prbc got vitamink 10 mg x3 days ,continue lactulose, ceftriaxone day2 for prophylax. moniter for bleeding and cbc q12 for now . Desats/sob: cxr shows ? fluid congestion,has few very faint scattered rales on exam. has acsitis -got paracentesis on 06/07 and 06/13 -2 liter(06/07) and 2.7(06/13) liter fluid removed respectively lasix started, nephro recomended to switch to diurnal considerin hypernatremia. Acute kidney injury- creatinine continues trending slightly up. likely prerenal due to hypovolemia, possible HRS creatinine trending down to 2.1, baseline 1.6. continue albumin added lasix renal function, lytes. plan:avoid nephrotoxins start lasix and spironolactone . Nephrology aware to follow up. Hypernatremia : possible sec to dec po intake and npo yeterday change fluids d5w, free water 200 ml q6hr moniter bmp closely acute alcoholic hepatitis on a background of cirrhosis complicated by ascites, portal venous hypertension diagnostic paracentesis in the ED negative for SBP gastroenterology consult>Prednisolone taper per GI (Start 40mg daily, decrease by 10mg q3-4 days (intiated 06/07). 06/11 Hold steroid due to question GI Bleed (see below) inr 1.5 plan: lfts and cr trending down s/p paracentesis today,added albumin s/p paracentesis 06/07 with removal of 2L,paracentesis prn - declined paracentesis 06/09, today wants paracentesis. therapeutic paracentesis ordered for 06/13 when IR returns, NPO after midnight Per nephrology, hold lasix 20/spironolactone 50 (06/10). hold steriods due to bleed Acute blood loss due to gi bleed on chronic anemia: Stool occult blood positive Iron and iron sats ,tibc ,b12 -seems fine ,folate is low hold steroids for now,continue folate gallbladder mass- ruled out seen by surgery, rec Bx - not a candidate for multiple reasons per IR, rec MRI MRI 06/08 negative for gallbladder mass, shows cholelithiasis without choledocolithiasis or biliary obtruction. Chronic thrombocytopenia due to cirrhosis Alcohol use disorder reports last alcoholic beverage was Easter Tuesday but desires rehab addiction medicine consult pending Hypotension:resolved. due to liver disease, Not sepsis. Given IVF and albumin. added small dose metoprolol . Monitor BP. gout continue allopurinol GERD continue PPI DVT prophylaxis-SCD boots Full code continue hospital stay for management of encephalopathy - acute blood loss on ch anemia -need IV ppi, octreotide, blood transfusions, close monitoring of CBC, multifcatorial ( hepatic encephalopathy,also metabolic component due to renal failure )acute kidney injury requiring IV albumin, anemia monitering and close monitoring of renal function electrolyte levels as well as expert consultation Quality Stroke Does the patient have a stroke diagnosis?: No VTE Prior VTE?: No VTE Risk Level:: Medical - moderate - high VTE Device Contraindication: N/A - Device Ordered VTE Drug Contraindication: Treatment Not Indicated
[2023-06-16] MEDS: Furosemide 20 MG/2 ML VIAL IVPUSH (11:57)
[2023-06-16] MEDS: cefTRIAXone sodium 1 GM in 0.9 % Sodium Chloride 50 ML IV (11:57)
[2023-06-16] MEDS: levalbuterol HCL 1.25 MG/3 ML VIAL.NEB INHALE ×2 (12:15→19:53)
--- NOTE | 2023-06-16 12:22 | PC.RT ---
pt sats 87% room air. placed on 2 liters n/c.Dr. Cain notfied to place 02 order
--- NOTE | 2023-06-16 12:57 | P.PNNP_ITS ---
Subjective Subjective Date of Service: 06/16/23 Interval history: Gi bleed Physical Exam 2 Vital Signs: Vital Signs: Last Vital Signs Temp 97.6 F 06/16/23 11:12 Pulse 110 H 06/16/23 12:16 Resp 20 06/16/23 12:16 BP 133/64 06/16/23 11:57 Pulse Ox 87 L 06/16/23 11:12 O2 Del Method Room Air 06/16/23 07:11 BMI result Body Mass Index 23.7 Const: General: comfortable and no acute distress O rientation/consciousness: patient oriented x3 HEENT: Head: Yes normocephalic Mouth: Normal oral and palatal mucosa present Eyes: EOM: EOMs intact bilaterally Neck: Neck: Yes supple Resp: Auscultation: clear to auscultation bilaterally Cardio: Jugular venous distension: no JVD Rate: regular rate GI: Palpation (GI): Soft to palpation Auscultation: normal bowel sounds : General: Yes no CVA tenderness Back/Spine/Pelvis: Back: no CVA tenderness Skin: General skin exam: no rashes or lesions noted Neuro: General: patient oriented x3 and moves all extremities Extrem: General: Yes no pedal edema Objective Data Labs 06/16/23 07:52 06/16/23 10:24 Labs: Laboratory Results - last 24 hr 06/15/23 06/16/23 06/16/23 08:14 02:08 07:52 WBC 11.2 H 11.5 H RBC 2.86 L D 2.83 L Hgb 9.6 L D 9.7 L Hct 27.9 L D 27.4 L MCV 97.6 96.8 MCH 33.6 H 34.3 H MCHC 34.4 35.4 H RDW 18.6 H 19.0 H Plt Count 65 L 73 L MPV 11.1 12.5 H Absolute Nucleated RBC 0.030 H 0.000 Nucleated RBC % (auto) 0.3 H 0.0 PT 17.3 H INR 1.4 H Sodium Potassium Chloride Carbon Dioxide Anion Gap BUN Creatinine Estim Creat Clear Calc Estimated GFR Random Glucose Calcium Blood Type B Positive Antibody Screen NEGATIVE Crossmatch See Detail 06/16/23 10:24 WBC RBC Hgb Hct MCV MCH MCHC RDW Plt Count MPV Absolute Nucleated RBC Nucleated RBC % (auto) PT INR Sodium 149 H Potassium 4.0 Chloride 116 H Carbon Dioxide 23 Anion Gap 14 BUN 60 H Creatinine 2.13 H Estim Creat Clear Calc 22.0 Estimated GFR 23 Random Glucose 163 H Calcium 9.5 Blood Type Antibody Screen Crossmatch Microbiology Microbiology Results: Microbiology 06/06/23 19:42 Ascites Fluid Gram Stain - Final 06/06/23 19:42 Ascites Fluid Anaerobic Culture - Final NO GROWTH AFTER 5 DAYS 06/06/23 19:42 Ascites Fluid Body Fluid Culture - Final No growth after 2 days 06/07/23 11:12 Urine clean catch Urine Culture - Final Procedures Date of Service Date of Service: 06/16/23 Assessment & Plan Assessment and plan (1) Lower GI bleed: Status: Acute (2) Hepatic encephalopathy: Status: Acute (3) Acute kidney injury: Status: Acute Plan Acute Kidney Injury due to tubular injury No reason to suspect AIN/GN s/p IV Albumin Had paracentesis; Renal function improving - cr down to 2.1 No indication for renal replacement Mild hypernatremia due to free water deficit from GI loss /decreased free water clearance due to loop diuretics Can use Diuril instead of Lasix C/W rest of current supportive care for now Shall closely follow up Time Spent With Patient Time: Total time managing care of this patient today ____ minutes. Progress Note: Quality Stroke Does the patient have a stroke diagnosis?: No
[2023-06-16] MEDS: Phytonadione (Vit K1) Oral 10 MG/ML AMPUL PO (13:12)
[2023-06-16] MEDS: Chlorothiazide Sodium 500 MG VIAL IVPUSH (13:13)
[2023-06-16 15:19] LABS: Adenovirus PCR Not Detected (Not Detect.); Bordetella parapertussis PCR Not Detected (Not Detect.); Bordetella pertussis PCR Not Detected (Not Detect.); Chlamydia pneumoniae PCR Not Detected (Not Detect.); Coronavirus 229E PCR Not Detected (Not Detect.); Coronavirus HKU1 PCR Not Detected (Not Detect.); Coronavirus NL63 PCR Not Detected (Not Detect.); Coronavirus OC43 PCR Not Detected (Not Detect.); Human metapneumovirus PCR Not Detected (Not Detect.); Influenza A PCR Not Detected (Not Detect.); Influenza B PCR Not Detected (Not Detect.); Mycoplasma pneumoniae PCR Not Detected (Not Detect.); Parainfluenza 1 PCR Not Detected (Not Detect.); Parainfluenza 2 PCR Not Detected (Not Detect.); Parainfluenza 3 PCR Not Detected (Not Detect.); Parainfluenza 4 PCR Not Detected (Not Detect.); RSV PCR Not Detected (Not Detect.); Rhino/Enterovirus PCR Not Detected (Not Detect.)
[2023-06-16 15:22] LABS: SARS-CoV-2 PCR Not Detected (Not Detect.)
--- NOTE | 2023-06-16 17:00 | P.PNGI_ITS ---
Subjective Subjective Date of Service: 06/16/23 Interval History: History from RN and EMR. Had 2 small dark stools overnight and this morning, but later in the day had only brown stool. No further BRBPR. No vomiting. Eating only fair. Denies abdominal pain. Critical Care Time (minutes): 0 Physical Exam 2 Vital Signs: Vital Signs: Last Vital Signs Temp 99.7 F 06/16/23 15:29 Pulse 123 H 06/16/23 15:29 Resp 20 06/16/23 15:29 BP 139/67 06/16/23 15:29 Pulse Ox 93 06/16/23 15:29 O2 Del Method Nasal Cannula 06/16/23 15:29 O2 Flow Rate 2 06/16/23 15:29 BMI result Body Mass Index 23.7 Const: General: cooperative, comfortable, no acute distress, awake and ill appearing Eyes: Sclerae: scleral abnormal (Icteric sclera) GI: Other: Abd-Distended with ascites, mild diffuse tenderness, no mass Skin: General skin exam: jaundice Extrem: General: Yes no pedal edema Objective Data Labs 06/16/23 07:52 06/16/23 10:24 Labs: Laboratory Results - last 24 hr 06/15/23 06/16/23 06/16/23 08:14 02:08 07:52 WBC 11.2 H 11.5 H RBC 2.86 L D 2.83 L Hgb 9.6 L D 9.7 L Hct 27.9 L D 27.4 L MCV 97.6 96.8 MCH 33.6 H 34.3 H MCHC 34.4 35.4 H RDW 18.6 H 19.0 H Plt Count 65 L 73 L MPV 11.1 12.5 H Absolute Nucleated RBC 0.030 H 0.000 Nucleated RBC % (auto) 0.3 H 0.0 PT 17.3 H INR 1.4 H Sodium Potassium Chloride Carbon Dioxide Anion Gap BUN Creatinine Estim Creat Clear Calc Estimated GFR Random Glucose Calcium Respiratory Panel [place] Adenovirus (Rapid PCR) B.pert (TEM-PCR) B.parapertussis DNA PCR C. pneumoniae DNA (PCR) Coronavirus OC43 (PCR) Coronavirus HKU1 (PCR) Coronavirus 229E (PCR) Coronavirus NL63 (PCR) Human Metapneumovir PCR Influenza A (RT-PCR) Influenza B (RT-PCR) M. pneumoniae (PCR) Parainfluenza 1 (PCR) Parainfluenza 2 (PCR) Parainfluenza 3 (PCR) Parainfluenza 4 (PCR) RSV (PCR) Entero/Rhino (PCR) SARS-CoV-2 RNA (RT-PCR) Blood Type B Positive Antibody Screen NEGATIVE Crossmatch See Detail 06/16/23 06/16/23 10:24 13:38 WBC RBC Hgb Hct MCV MCH MCHC RDW Plt Count MPV Absolute Nucleated RBC Nucleated RBC % (auto) PT INR Sodium 149 H Potassium 4.0 Chloride 116 H Carbon Dioxide 23 Anion Gap 14 BUN 60 H Creatinine 2.13 H Estim Creat Clear Calc 22.0 Estimated GFR 23 Random Glucose 163 H Calcium 9.5 Respiratory Panel [place] See Note Adenovirus (Rapid PCR) Not Detected B.pert (TEM-PCR) Not Detected B.parapertussis DNA PCR Not Detected C. pneumoniae DNA (PCR) Not Detected Coronavirus OC43 (PCR) Not Detected Coronavirus HKU1 (PCR) Not Detected Coronavirus 229E (PCR) Not Detected Coronavirus NL63 (PCR) Not Detected Human Metapneumovir PCR Not Detected Influenza A (RT-PCR) Not Detected Influenza B (RT-PCR) Not Detected M. pneumoniae (PCR) Not Detected Parainfluenza 1 (PCR) Not Detected Parainfluenza 2 (PCR) Not Detected Parainfluenza 3 (PCR) Not Detected Parainfluenza 4 (PCR) Not Detected RSV (PCR) Not Detected Entero/Rhino (PCR) Not Detected SARS-CoV-2 RNA (RT-PCR) Not Detected Blood Type Antibody Screen Crossmatch Microbiology Microbiology Results: Microbiology 06/06/23 19:42 Ascites Fluid Gram Stain - Final 06/06/23 19:42 Ascites Fluid Anaerobic Culture - Final NO GROWTH AFTER 5 DAYS 06/06/23 19:42 Ascites Fluid Body Fluid Culture - Final No growth after 2 days 06/07/23 11:12 Urine clean catch Urine Culture - Final Procedures Date of Service Date of Service: 06/16/23 Progress Note: A&P Assessment and plan (1) Lower GI bleed: Status: Acute (2) Hepatic encephalopathy: Status: Acute (3) Alcoholic hepatitis: Status: Acute (4) Cirrhosis of liver with ascites: Status: Acute (5) Jaundice: Status: Acute Plan Imp: Overall stable as compared to yesterday. Her bleeding seems to have subsided. Her jaundice, encephalopathy, and ascites all seem stable. Overall prognosis remains guarded. Rec: Continue supportive care, advance diet as tolerated, D/C Sandostatin on 06/16 and switch to a po PPI ,diuretic regimen as per Renal regarding the ascites, recheck labs in AM re: LFT's, Renal function, CBC, and Ammonia level. Paracentesis PRN for comfort if diuretics are not sufficient and/or limited by her renal function. Thanks Time Spent With Patient Time: Total time managing care of this patient today ____ minutes. Quality Stroke Does the patient have a stroke diagnosis?: No VTE Prior VTE?: No VTE Risk Level:: Medical - moderate - high VTE Device Contraindication: N/A - Device Ordered VTE Drug Contraindication: Treatment Not Indicated
[2023-06-16 20:17] LABS: Hematocrit 27.7 % (37.0-47.0); Hemoglobin 9.9 g/dl (12.0-16.0); Mean Corpuscular HGB Conc 35.7 g/dl (31.0-35.0); Mean Corpuscular Hemoglobin 34.6 pg (27.0-33.0); Mean Corpuscular Volume 96.9 fL (80.0-98.0); Mean Platelet Volume 11.9 fL (9.4-12.3); Red Blood Count 2.86 X10*6/uL (4.20-5.50); Red Cell Distribution Width 19.2 % (11.0-16.0); White Blood Count 13.8 X10*3/uL (4.8-10.8)
[2023-06-16 20:38] LABS: Platelet Count 78 X10*3/uL (160-400)
[2023-06-17] VITALS (16 sets, daily range): BP systolic 121–141; BP diastolic 68–83; PULSE 79–115; RESP 16–20; TEMP 36.8–37.5; O2SAT 89–96
[2023-06-17] MEDS: Omeprazole 40 MG CAPSULE.DR PO (05:15)
[2023-06-17] MEDS: levalbuterol HCL 1.25 MG/3 ML VIAL.NEB INHALE ×5 (05:17→19:26)
[2023-06-17] MEDS: Thiamine HCL 200 MG in 0.9 % Sodium Chloride 100 ML IV (05:17)
[2023-06-17 05:29] LABS: Hematocrit 26.9 % (37.0-47.0); Hemoglobin 9.7 g/dl (12.0-16.0); Mean Corpuscular HGB Conc 36.1 g/dl (31.0-35.0); Mean Corpuscular Volume 94.4 fL (80.0-98.0); Red Blood Count 2.85 X10*6/uL (4.20-5.50); White Blood Count 12.6 X10*3/uL (4.8-10.8)
[2023-06-17 05:32] LABS: Platelet Count 83 X10*3/uL (160-400)
[2023-06-17 05:35] LABS: Ammonia 68 umol/L (13-55)
[2023-06-17 05:47] LABS: Alanine Aminotransferase 32 U/L (0-31); Albumin Level 4.3 g/dL (3.5-5.0); Alkaline Phosphatase 125 U/L (39-117); Anion Gap 15 (12-20); Aspartate Amino Transferase 41 U/L (5-31); Bilirubin Direct 10.6 mg/dL (0.0-0.5); Bilirubin Total 15.3 mg/dL (0.0-1.0); Blood Urea Nitrogen 58 mg/dL (9-16); Calcium 9.5 mg/dL (8.4-10.2); Carbon Dioxide 20 mmol/L (22-29); Chloride 115 mmol/L (96-108); Creatinine Clr Calc Pharmacy 22.5; Estimated Glomerular Filt Rate 24; Glucose Fasting 141 mg/dL (60-99); Potassium 3.5 mmol/L (3.3-5.1); Sodium 146 mmol/L (135-145); Total Protein 6.5 g/dL (6.5-8.0)
[2023-06-17] MEDS: Chlorothiazide Sodium 500 MG VIAL IVPUSH (07:50)
[2023-06-17] MEDS: Midodrine HCl 5 MG TABLET PO ×3 (07:51→21:03)
[2023-06-17] MEDS: Lactulose 20 GM/30 ML SOLUTION PO (07:51)
[2023-06-17] MEDS: rifAXIMin 550 MG TABLET PO ×2 (07:51→21:03)
[2023-06-17] MEDS: allopurinoL 300 MG TABLET PO (07:51)
[2023-06-17] MEDS: guaiFENesin 200 MG/10 ML 10 ML LIQUID PO ×3 (07:51→18:03)
[2023-06-17] MEDS: Metoprolol Tartrate 12.5 MG HALFTAB PO ×2 (07:51→21:03)
[2023-06-17] MEDS: Folic Acid 1 MG in 0.9 % Sodium Chloride 50 ML 100.4 MG IV (07:51)
[2023-06-17] MEDS: Magnesium Oxide 400 MG TABLET PO (07:51)
[2023-06-17] MEDS: 0.9 % Sodium Chloride Flush 3 ML SYRINGE IVFLUSH ×2 (07:52→16:10)
[2023-06-17] MEDS: Octreotide Acetate 500 MCG in 0.9 % Sodium Chloride 500 ML 50.1 MCG IVCONT (08:00)
[2023-06-17] MEDS: cefTRIAXone sodium 1 GM in 0.9 % Sodium Chloride 50 ML IV (11:56)
--- NOTE | 2023-06-17 13:44 | MHC.CM.PN ---
Per MD rounds no dc today r/t Amonia level elevated. SPO2 87% per respiratory therapist. Oxygen has been ordered. MD anticipates patient will require hospitalization thru the weekend. PT will be ordered when patient medically cleared to DC.
--- NOTE | 2023-06-17 15:58 | HO.PM.IMPN ---
Subjective Subjective Date of Service: 06/17/23 Interval History: Gi bleed Review of Systems mental status improving,has 3 bm's no jocelyne bleedin today sats improving 93% on ra sob also improving Physical Exam Vital Signs: Vital Signs: Last Vital Signs Temp 98.3 F 06/17/23 15:54 Pulse 101 H 06/17/23 15:54 Resp 20 06/17/23 15:54 BP 123/81 06/17/23 15:54 Pulse Ox 93 06/17/23 15:54 O2 Del Method Room Air 06/17/23 15:54 O2 Flow Rate 2 06/17/23 07:08 BMI result Body Mass Index 23.7 Appearance: Alert.? Oriented X3,generally weak,sob improving cvs: rrr, [id number] , no murmur res: clear to auscultation ,no rhonchii or wheezing abd: no rebound or guarding ,abd pain significantly better ,has some discomfort, bs present,has some ascitis. ext pulses present , no cyanosis . neuro: axo3 , nonfocal. Objective Data Active Medications Acetaminophen (Acetaminophen 325 Mg Tablet) 650 mg PO Q6H PRN PRN Reason: Pain, Mild (Pain Scale 1-3) Last Admin: 06/12/23 02:06 Dose: 650 mg Allopurinol (Allopurinol 300 Mg Tablet) 300 mg PO DAILY [facility] Last Admin: 06/17/23 07:51 Dose: 300 mg Documented By: AMADOU Chlorothiazide Sodium (Chlorothiazide Sodium 500 Mg Vial) 500 mg IVPUSH DAILY [facility]; Protocol Last Admin: 06/17/23 07:50 Dose: 500 mg Documented By: AMADOU Guaifenesin (Guaifenesin 200 Mg/10 Ml 10 Ml Liquid) 10 ml PO Q4H PRN PRN Reason: Cough Last Admin: 06/16/23 04:04 Dose: 10 ml Documented By: BHARGAV Comments: dry persistent cough Guaifenesin (Guaifenesin 200 Mg/10 Ml 10 Ml Liquid) 10 ml PO Q6H JOSE ALFREDO Last Admin: 06/17/23 11:56 Dose: 10 ml Documented By: CARLOS Thiamine HCl 200 mg/ Sodium (Chloride) 102 mls @ 204 mls/hr IV Q8H JOSE ALFREDO Last Admin: 06/17/23 15:22 Dose: Not Given Documented By: AMADOU Non-Admin Reason: MD lester changing medication to PO form Folic Acid 1 mg/ Sodium (Chloride) 50.2 mls @ 100.4 mls/hr IV DAILY [facility] Last Infusion: 06/17/23 09:14 Dose: Infused Documented By: AMADOU Ceftriaxone Sodium 1 gm/ (Sodium Chloride) 50 mls @ 100 mls/hr IV Q24H [facility] Last Infusion: 06/17/23 12:26 Dose: Infused Documented By: AMADOU Lactulose (Lactulose 20 Gm/30 Ml Solution) 20 gm PO DAILY [facility] Levalbuterol HCl (Levalbuterol Hcl 1.25 Mg/3 Ml Vial.Neb) 1.25 mg INHALE RQ4H [facility] Last Admin: 06/17/23 11:30 Dose: 1.25 mg Documented By: YULY Magnesium Oxide (Magnesium Oxide 400 Mg Tablet) 400 mg PO DAILY [facility] Last Admin: 06/17/23 07:51 Dose: 400 mg Documented By: AMADOU Metoprolol Tartrate (Metoprolol Tartrate 12.5 Mg Halftab) 12.5 mg PO BID [facility]; Protocol Last Admin: 06/17/23 07:51 Dose: 12.5 mg Documented By: AMADOU Midodrine (Midodrine Hcl 5 Mg Tablet) 5 mg PO TID [facility] Last Admin: 06/17/23 07:51 Dose: 5 mg Documented By: AMADOU Omeprazole (Omeprazole 40 Mg Capsule.Dr) 40 mg PO DAILY@0630 [facility] Last Admin: 06/17/23 05:15 Dose: 40 mg Documented By: TOM Ondansetron HCl (Ondansetron Hcl 4 Mg/2 Ml Vial) 4 mg IVPUSH Q8H PRN PRN Reason: Nausea and Vomiting Last Admin: 06/15/23 21:54 Dose: 4 mg Documented By: BHARGAV Comments: pt reports feels nauseated. Pentoxifylline (Pentoxifylline Er 400 Mg Tablet.Er) 400 mg PO DAILY [facility] Rifaximin (Rifaximin 550 Mg Tablet) 550 mg PO BID [facility] Last Admin: 06/17/23 07:51 Dose: 550 mg Documented By: AMADOU Senna (Sennosides 8.6 Mg Tablet) 17.2 mg PO BEDTIME PRN PRN Reason: Constipation Last Admin: 06/12/23 21:53 Dose: 17.2 mg Documented By: PATRICIA Sodium Chloride (0.9 % Sodium Chloride Flush 3 Ml Syringe) 3 ml IVFLUSH QSHIFT [facility] ALFREDO Last Admin: 06/17/23 07:52 Dose: 3 ml Documented By: AMADOU Labs 06/17/23 05:22 06/17/23 05:22 Labs: Laboratory Results - last 24 hr 06/16/23 06/17/23 20:07 05:22 MCV 96.9 94.4 MCH 34.6 H 34.0 H MCHC 35.7 H 36.1 H RDW 19.2 H 19.0 H Plt Count 78 L 83 L MPV 11.9 12.0 Absolute Nucleated RBC 0.000 0.000 Nucleated RBC % (auto) 0.0 0.0 Anion Gap 15 Estim Creat Clear Calc 22.5 Estimated GFR 24 Fasting Glucose 141 H Calcium 9.5 Total Bilirubin 15.3 H Direct Bilirubin 10.6 H AST 41 H ALT 32 H Alkaline Phosphatase 125 H Ammonia 68 H Total Protein 6.5 Albumin 4.3 Assessment and Plan (1) Lower GI bleed: Status: Acute (2) Hepatic encephalopathy: Status: Acute (3) Alcoholic hepatitis: Status: Acute Assessment and Plan: 63-year-old female with history of alcoholic cirrhosis complicated by portal venous hypertension and ascites, alcohol use disorder, gout, GERD admitted for further management of acute kidney injury and alcoholic hepatitis Acute metabolic vs toxic metabolic encephalopathy now has gi bleed -has 1-2 episode of melena ,no jocelyne bleedin oriented x3, but slow to respond, aware of confusion ammonia normal,head ct-negative ,no fever ct abd -portal htn ,bleeding scan -negative h/h stable in range : 9-10 range plan: switch to po ppi,octerotide-stopped , received transfuse 2 ffp ,1 platlets ,2prbc got vitamink 10 mg x3 days ,continue lactulose, ceftriaxone day3 for prophylax. goal bm's is 3 /day on lactlouse. moniter for bleeding and cbc daily . Desats/sob: improved ,off oxygen cxr shows ? fluid congestion/has acsitis -got paracentesis on 4/10 and 06/13 -2 liter(06/07) and 2.7(06/13) liter fluid removed respectively lasix stopped,nephro recomended to switch to diurnal considerin hypernatremia. Acute kidney injury- creatinine continues trending slightly up. likely prerenal due to hypovolemia, possible HRS creatinine trending down to 2, baseline 1.6. continue albumin added lasix renal function, lytes. plan:avoid nephrotoxins start lasix and spironolactone . Nephrology aware to follow up. Hypernatremia : possible sec to dec po intake and npo yeterday change fluids d5w, free water 200 ml q6hr moniter bmp closely acute alcoholic hepatitis on a background of cirrhosis complicated by ascites, portal venous hypertension diagnostic paracentesis in the ED negative for SBP gastroenterology consult>Prednisolone taper per GI (Start 40mg daily, decrease by 10mg q3-4 days (intiated 06/07). 06/11 Hold steroid due to question GI Bleed (see below) inr 1.5 bilirubin trending up -?gi bleed ,transfusion,porgressive liver dis. plan: lfts and cr trending down s/p paracentesis today,added albumin s/p paracentesis 06/07 with removal of 2L,paracentesis prn - declined paracentesis 06/09, today wants paracentesis. therapeutic paracentesis ordered for 06/13 when IR returns, NPO after midnight Per nephrology, hold lasix 20/spironolactone 50 (06/10),currently on diurnal ,also added Pentoxyfyline,hold steriods due to bleed . Acute blood loss due to gi bleed on chronic anemia: Stool occult blood positive Iron and iron sats ,tibc ,b12 -seems fine ,folate is low hold steroids for now,continue folate gallbladder mass- ruled out seen by surgery, rec Bx - not a candidate for multiple reasons per IR, rec MRI MRI 06/08 negative for gallbladder mass, shows cholelithiasis without choledocolithiasis or biliary obtruction. Chronic thrombocytopenia due to cirrhosis Alcohol use disorder reports last alcoholic beverage was Easter Tuesday but desires rehab addiction medicine consult pending Hypotension:resolved. due to liver disease, Not sepsis. Given IVF and albumin. cotninue metoprolol . Monitor BP. gout continue allopurinol GERD continue PPI DVT prophylaxis-SCD boots Full code continue hospital stay for management of encephalopathy - acute blood loss on ch anemia -need IV ppi, octreotide, blood transfusions, close monitoring of CBC, multifcatorial ( hepatic encephalopathy,also metabolic component due to renal failure )acute kidney injury requiring IV albumin, anemia monitering and close monitoring of renal function electrolyte levels as well as expert consultation Quality Stroke Does the patient have a stroke diagnosis?: No VTE Prior VTE?: No VTE Risk Level:: Medical - moderate - high VTE Device Contraindication: N/A - Device Ordered VTE Drug Contraindication: Treatment Not Indicated
[2023-06-17] MEDS: Pentoxifylline ER 400 MG TABLET.ER PO (16:10)
--- NOTE | 2023-06-17 19:39 | PM.PNNEP ---
Subjective Subjective Date of Service: 06/17/23 Interval history: Events noted; All recent data reviewed Physical Exam Vital Signs: Vital Signs: Last Vital Signs Temp 98.3 F 06/17/23 15:54 Pulse 92 06/17/23 19:28 Resp 16 06/17/23 19:28 BP 123/81 06/17/23 15:54 Pulse Ox 93 06/17/23 15:54 O2 Del Method Room Air 06/17/23 15:54 O2 Flow Rate 2 06/17/23 07:08 BMI result Body Mass Index 23.7 Const: General: no acute distress Neck: Neck: Yes supple Resp: Auscultation: diminished lung sounds Cardio: Rate: regular rate GI: Palpation (GI): Soft to palpation Neuro: General: moves all extremities Objective Data Labs 06/17/23 05:22 06/17/23 05:22 Labs: Laboratory Results - last 24 hr 06/16/23 06/17/23 20:07 05:22 WBC 13.8 H 12.6 H RBC 2.86 L 2.85 L Hgb 9.9 L 9.7 L Hct 27.7 L 26.9 L MCV 96.9 94.4 MCH 34.6 H 34.0 H MCHC 35.7 H 36.1 H RDW 19.2 H 19.0 H Plt Count 78 L 83 L MPV 11.9 12.0 Absolute Nucleated RBC 0.000 0.000 Nucleated RBC % (auto) 0.0 0.0 Sodium 146 H Potassium 3.5 Chloride 115 H Carbon Dioxide 20 L Anion Gap 15 BUN 58 H Creatinine 2.08 H Estim Creat Clear Calc 22.5 Estimated GFR 24 Fasting Glucose 141 H Calcium 9.5 Total Bilirubin 15.3 H Direct Bilirubin 10.6 H AST 41 H ALT 32 H Alkaline Phosphatase 125 H Ammonia 68 H Total Protein 6.5 Albumin 4.3 Microbiology Microbiology Results: Microbiology 06/06/23 19:42 Ascites Fluid Gram Stain - Final 06/06/23 19:42 Ascites Fluid Anaerobic Culture - Final NO GROWTH AFTER 5 DAYS 06/06/23 19:42 Ascites Fluid Body Fluid Culture - Final No growth after 2 days 06/07/23 11:12 Urine clean catch Urine Culture - Final Procedures Date of Service Date of Service: 06/17/23 Assessment & Plan Assessment and plan (1) Acute kidney injury: Status: Acute Time Spent With Patient Time: Acute Kidney Injury due to tubular injury No reason to suspect AIN/GN Renal function improving No indication for renal replacement C/W rest of current supportive care for now Needs close outpatient office follow up with [facility] after D/C Progress Note: Quality Stroke Does the patient have a stroke diagnosis?: No
[2023-06-18] VITALS (10 sets, daily range): BP systolic 111–118; BP diastolic 56–79; PULSE 67–87; RESP 16–20; TEMP 36.8–37.7; O2SAT 91–100
[2023-06-18] MEDS: Omeprazole 40 MG CAPSULE.DR PO (06:22)
[2023-06-18] MEDS: 0.9 % Sodium Chloride Flush 3 ML SYRINGE IVFLUSH ×4 (06:22→20:14)
[2023-06-18] MEDS: guaiFENesin 200 MG/10 ML 10 ML LIQUID PO ×3 (06:22→20:14)
[2023-06-18 07:02] LABS: Hematocrit 27.6 % (37.0-47.0); Hemoglobin 9.8 g/dl (12.0-16.0)
[2023-06-18 07:20] LABS: Alanine Aminotransferase 29 U/L (0-31); Alkaline Phosphatase 139 U/L (39-117); Anion Gap 13 (12-20); Aspartate Amino Transferase 44 U/L (5-31); Bilirubin Total 16.2 mg/dL (0.0-1.0); Blood Urea Nitrogen 48 mg/dL (9-16); Calcium 9.2 mg/dL (8.4-10.2); Carbon Dioxide 22 mmol/L (22-29); Chloride 114 mmol/L (96-108); Creatinine Clr Calc Pharmacy 25.8; Estimated Glomerular Filt Rate 28; Glucose Random 110 mg/dL (60-115); Potassium 3.5 mmol/L (3.3-5.1); Sodium 145 mmol/L (135-145); Total Protein 6.1 g/dL (6.5-8.0)
[2023-06-18] MEDS: levalbuterol HCL 1.25 MG/3 ML VIAL.NEB INHALE ×4 (07:47→23:57)
[2023-06-18 08:23] LABS: Vitamin B1 >1200 nmol/L (8-30)
[2023-06-18] MEDS: allopurinoL 300 MG TABLET PO (08:25)
[2023-06-18] MEDS: Chlorothiazide Sodium 500 MG VIAL IVPUSH (08:25)
[2023-06-18] MEDS: Thiamine HCL 100 MG TABLET PO (08:25)
[2023-06-18] MEDS: Metoprolol Tartrate 12.5 MG HALFTAB PO ×2 (08:25→20:14)
[2023-06-18] MEDS: rifAXIMin 550 MG TABLET PO ×2 (08:25→20:14)
[2023-06-18] MEDS: Pentoxifylline ER 400 MG TABLET.ER PO (08:26)
[2023-06-18] MEDS: Midodrine HCl 5 MG TABLET PO ×3 (08:26→20:14)
[2023-06-18] MEDS: Folic Acid 1 MG TABLET PO (08:26)
[2023-06-18] MEDS: Magnesium Oxide 400 MG TABLET PO (08:26)
[2023-06-18] MEDS: Lactulose 20 GM/30 ML SOLUTION PO (08:26)
[2023-06-18] MEDS: cefTRIAXone sodium 1 GM in 0.9 % Sodium Chloride 50 ML IV (11:23)
--- NOTE | 2023-06-18 15:26 | P.PNIM_ITS ---
Subjective Subjective Date of Service: 06/18/23 Interval History: Encephalopathy, GI bleed Review of Systems Shortness breast seems to be improving, mental status also improved significantly H&H stable No fever or abdominal pain Had 5 BMs since yesterday No jocelyne bleeding episode from last 2-3 days Physical Exam 2 Vital Signs: Vital Signs: Last Vital Signs Temp 98.8 F 06/18/23 11:20 Pulse 67 06/18/23 11:20 Resp 16 06/18/23 11:20 BP 118/61 06/18/23 11:20 Pulse Ox 97 06/18/23 11:20 O2 Del Method Nasal Cannula 06/18/23 11:20 O2 Flow Rate 2 06/18/23 11:20 BMI result Body Mass Index 23.7 Appearance: Alert.? Oriented X3,generally weak,sob improving cvs: rrr, [id number] , no murmur res: clear to auscultation ,no rhonchii or wheezing abd: no rebound or guarding ,nt ,nd, bs present,has some ascitis. ext pulses present , no cyanosis . neuro: axo3 , nonfocal. Objective Data Active Medications Acetaminophen (Acetaminophen 325 Mg Tablet) 650 mg PO Q6H PRN PRN Reason: Pain, Mild (Pain Scale 1-3) Last Admin: 06/12/23 02:06 Dose: 650 mg Allopurinol (Allopurinol 300 Mg Tablet) 300 mg PO DAILY [facility] Last Admin: 06/18/23 08:25 Dose: 300 mg Documented By: SOFYA Chlorothiazide Sodium (Chlorothiazide Sodium 500 Mg Vial) 500 mg IVPUSH DAILY [facility]; Protocol Last Admin: 06/18/23 08:25 Dose: 500 mg Documented By: SOFYA Folic Acid (Folic Acid 1 Mg Tablet) 1 mg PO DAILY [facility] Last Admin: 06/18/23 08:26 Dose: 1 mg Documented By: SOFYA Guaifenesin (Guaifenesin 200 Mg/10 Ml 10 Ml Liquid) 10 ml PO Q4H PRN PRN Reason: Cough Last Admin: 06/16/23 04:04 Dose: 10 ml Documented By: BHARGAV Comments: dry persistent cough Guaifenesin (Guaifenesin 200 Mg/10 Ml 10 Ml Liquid) 10 ml PO Q6H [facility] Last Admin: 06/18/23 13:48 Dose: 10 ml Documented By: SOFYA Ceftriaxone Sodium 1 gm/ (Sodium Chloride) 50 mls @ 100 mls/hr IV Q24H [facility] Last Infusion: 06/18/23 12:25 Dose: Infused Documented By: SOFYA Lactulose (Lactulose 20 Gm/30 Ml Solution) 20 gm PO DAILY [facility] Last Admin: 06/18/23 08:26 Dose: 20 gm Documented By: SOFYA Levalbuterol HCl (Levalbuterol Hcl 1.25 Mg/3 Ml Vial.Neb) 1.25 mg INHALE RQ4H [facility] Last Admin: 06/18/23 11:43 Dose: Not Given Documented By: YULY Non-Admin Reason: Patient Asleep Magnesium Oxide (Magnesium Oxide 400 Mg Tablet) 400 mg PO DAILY [facility] Last Admin: 06/18/23 08:26 Dose: 400 mg Documented By: SOFYA Metoprolol Tartrate (Metoprolol Tartrate 12.5 Mg Halftab) 12.5 mg PO BID [facility]; Protocol Last Admin: 06/18/23 08:25 Dose: 12.5 mg Documented By: SOFYA Midodrine (Midodrine Hcl 5 Mg Tablet) 5 mg PO TID [facility] Last Admin: 06/18/23 13:48 Dose: 5 mg Documented By: SOFYA Omeprazole (Omeprazole 40 Mg Capsule.Dr) 40 mg PO DAILY@0630 [facility] Last Admin: 06/18/23 06:22 Dose: 40 mg Documented By: CAROL Ondansetron HCl (Ondansetron Hcl 4 Mg/2 Ml Vial) 4 mg IVPUSH Q8H PRN PRN Reason: Nausea and Vomiting Last Admin: 06/15/23 21:54 Dose: 4 mg Documented By: BHARGAV Comments: pt reports feels nauseated. Pentoxifylline (Pentoxifylline Er 400 Mg Tablet.Er) 400 mg PO DAILY [facility] Last Admin: 06/18/23 08:26 Dose: 400 mg Documented By: SOFYA Rifaximin (Rifaximin 550 Mg Tablet) 550 mg PO BID [facility] Last Admin: 06/18/23 08:25 Dose: 550 mg Documented By: SOFYA Senna (Sennosides 8.6 Mg Tablet) 17.2 mg PO BEDTIME PRN PRN Reason: Constipation Last Admin: 06/12/23 21:53 Dose: 17.2 mg Documented By: HOLLYRISM Sodium Chloride (0.9 % Sodium Chloride Flush 3 Ml Syringe) 3 ml IVFLUSH QSHIFT [facility] Last Admin: 06/18/23 08:34 Dose: 3 ml Documented By: SOFYA Thiamine HCl (Thiamine Hcl 100 Mg Tablet) 100 mg PO DAILY [facility] Last Admin: 06/18/23 08:25 Dose: 100 mg Documented By: SOFYA Labs 06/18/23 06:38 06/18/23 06:38 Labs: Laboratory Results - last 24 hr 06/12/23 06/18/23 10:44 06:38 Anion Gap 13 Estim Creat Clear Calc 25.8 Estimated GFR 28 Random Glucose 110 Calcium 9.2 Total Bilirubin 16.2 H AST 44 H ALT 29 Alkaline Phosphatase 139 H Total Protein 6.1 L Albumin 4.0 Vitamin B1 >1200 H Assessment and Plan (1) Lower GI bleed: Status: Acute (2) Hepatic encephalopathy: Status: Acute (3) Alcoholic hepatitis: Status: Acute Assessment and Plan: 63-year-old female with history of alcoholic cirrhosis complicated by portal venous hypertension and ascites, alcohol use disorder, gout, GERD admitted for further management of acute kidney injury and alcoholic hepatitis Acute metabolic vs toxic metabolic encephalopathy no new bleeding episode h/h seems fine oriented x3 ammonia normal,head ct-negative ,no fever ct abd -portal htn ,bleeding scan -negative h/h stable in range : 9-10 range plan: switch to po ppi,octerotide-stopped , received transfuse 2 ffp ,1 platlets ,2prbc got vitamink 10 mg x3 days ,continue lactulose, ceftriaxone day3 for prophylax. goal bm's is 3 /day on lactlouse. moniter for bleeding and cbc daily . Desats/sob: improved ,taper off oxygen cxr shows ? fluid congestion/has acsitis -got paracentesis on 06/07 and 06/13 -2 liter(06/07) and 2.7(06/13) liter fluid removed respectively lasix stopped,nephro recomended to switch to diurnal considerin hypernatremia. Acute kidney injury- creatinine continues trending slightly up. likely prerenal due to hypovolemia, possible HRS creatinine trending down to 2, baseline 1.6. continue albumin added lasix renal function, lytes. plan:avoid nephrotoxins start lasix and spironolactone . Nephrology aware to follow up. Hypernatremia : possible sec to dec po intake and npo yeterday change fluids d5w, free water 200 ml q6hr moniter bmp closely acute alcoholic hepatitis on a background of cirrhosis complicated by ascites, portal venous hypertension diagnostic paracentesis in the ED negative for SBP gastroenterology consult>Prednisolone taper per GI (Start 40mg daily, decrease by 10mg q3-4 days (intiated 06/07). 06/11 Hold steroid due to question GI Bleed (see below) inr 1.5 bilirubin trending up -?gi bleed ,transfusion,porgressive liver dis. plan: lfts and cr trending down s/p paracentesis today,added albumin s/p paracentesis 06/07 with removal of 2L,paracentesis prn - declined paracentesis 06/09, today wants paracentesis. therapeutic paracentesis ordered for 06/13 when IR returns, NPO after midnight Per nephrology, hold lasix 20/spironolactone 50 (06/10),currently on diurnal ,also added Pentoxyfyline,hold steriods due to bleed . Acute blood loss due to gi bleed on chronic anemia: Stool occult blood positive Iron and iron sats ,tibc ,b12 -seems fine ,folate is low hold steroids for now,continue folate gallbladder mass- ruled out seen by surgery, rec Bx - not a candidate for multiple reasons per IR, rec MRI MRI 06/08 negative for gallbladder mass, shows cholelithiasis without choledocolithiasis or biliary obtruction. Chronic thrombocytopenia due to cirrhosis Alcohol use disorder reports last alcoholic beverage was [place] but desires rehab addiction medicine consult pending Hypotension:resolved. due to liver disease, Not sepsis. Given IVF and albumin. cotninue metoprolol . Monitor BP. gout continue allopurinol GERD continue PPI DVT prophylaxis-SCD boots Full code continue hospital stay for management of encephalopathy - acute blood loss on ch anemia -need IV ppi, octreotide, blood transfusions, close monitoring of CBC, multifcatorial ( hepatic encephalopathy,also metabolic component due to renal failure )acute kidney injury requiring IV albumin, anemia monitering and close monitoring of renal function electrolyte levels as well as expert consultation Quality Stroke Does the patient have a stroke diagnosis?: No VTE Prior VTE?: No VTE Risk Level:: Medical - moderate - high VTE Device Contraindication: N/A - Device Ordered VTE Drug Contraindication: Treatment Not Indicated
[2023-06-19] VITALS (11 sets, daily range): BP systolic 108–137; BP diastolic 62–87; PULSE 69–88; RESP 16–20; TEMP 36.7–37.1; O2SAT 92–100
[2023-06-19] MEDS: levalbuterol HCL 1.25 MG/3 ML VIAL.NEB INHALE ×5 (04:04→19:42)
[2023-06-19] MEDS: guaiFENesin 200 MG/10 ML 10 ML LIQUID PO ×5 (05:36→21:48)
[2023-06-19] MEDS: Omeprazole 40 MG CAPSULE.DR PO (05:36)
[2023-06-19] MEDS: 0.9 % Sodium Chloride Flush 3 ML SYRINGE IVFLUSH ×3 (07:26→21:48)
[2023-06-19] MEDS: Pentoxifylline ER 400 MG TABLET.ER PO (08:01)
[2023-06-19] MEDS: Metoprolol Tartrate 12.5 MG HALFTAB PO ×2 (08:01→21:48)
[2023-06-19] MEDS: Thiamine HCL 100 MG TABLET PO (08:01)
[2023-06-19] MEDS: Midodrine HCl 5 MG TABLET PO ×3 (08:01→21:48)
[2023-06-19] MEDS: Magnesium Oxide 400 MG TABLET PO (08:01)
[2023-06-19] MEDS: allopurinoL 300 MG TABLET PO (08:01)
[2023-06-19] MEDS: rifAXIMin 550 MG TABLET PO ×2 (08:01→21:48)
[2023-06-19] MEDS: Folic Acid 1 MG TABLET PO (08:02)
[2023-06-19] MEDS: Chlorothiazide Sodium 500 MG VIAL IVPUSH (09:40)
[2023-06-19] MEDS: Benzonatate 100 MG CAPSULE PO ×3 (09:40→21:48)
[2023-06-19] MEDS: cefTRIAXone sodium 1 GM in 0.9 % Sodium Chloride 50 ML IV (11:41)
[2023-06-19] MEDS: Lactulose 20 GM/30 ML SOLUTION PO (12:10)
--- NOTE | 2023-06-19 12:21 | P.PNIM_ITS ---
Subjective Subjective Date of Service: 06/19/23 Interval History: Encephalopathy, GI bleed Review of Systems mental status improving no new bleeding ,eating also today no fevers no bm so afr today Physical Exam 2 Vital Signs: Vital Signs: Last Vital Signs Temp 98.5 F 06/19/23 11:46 Pulse 71 06/19/23 11:46 Resp 19 06/19/23 11:46 BP 110/62 06/19/23 11:46 Pulse Ox 100 06/19/23 11:46 O2 Del Method Room Air 06/19/23 11:46 O2 Flow Rate 2 06/19/23 04:00 BMI result Body Mass Index 23.7 Appearance: Alert.? Oriented X3,generally weak,sob improving cvs: rrr, [id number] , no murmur res: clear to auscultation ,no rhonchii or wheezing abd: no rebound or guarding ,nt ,nd, bs present,has some ascitis. ext pulses present , no cyanosis . neuro: axo3 , nonfocal. Objective Data Active Medications Acetaminophen (Acetaminophen 325 Mg Tablet) 650 mg PO Q6H PRN PRN Reason: Pain, Mild (Pain Scale 1-3) Last Admin: 06/12/23 02:06 Dose: 650 mg Allopurinol (Allopurinol 300 Mg Tablet) 300 mg PO DAILY [facility] Last Admin: 06/19/23 08:01 Dose: 300 mg Documented By: SOFYA Benzonatate (Benzonatate 100 Mg Capsule) 100 mg PO TID [facility] Last Admin: 06/19/23 09:40 Dose: 100 mg Documented By: SOFYA Chlorothiazide Sodium (Chlorothiazide Sodium 500 Mg Vial) 500 mg IVPUSH DAILY [facility]; Protocol Last Admin: 06/19/23 09:40 Dose: 500 mg Documented By: SOFYA Folic Acid (Folic Acid 1 Mg Tablet) 1 mg PO DAILY [facility] Last Admin: 06/19/23 08:02 Dose: 1 mg Documented By: SOFYA Guaifenesin (Guaifenesin 200 Mg/10 Ml 10 Ml Liquid) 10 ml PO Q4H [facility] Last Admin: 06/19/23 09:40 Dose: 10 ml Documented By: SOFYA Ceftriaxone Sodium 1 gm/ (Sodium Chloride) 50 mls @ 100 mls/hr IV Q24H [facility] Last Infusion: 06/19/23 12:18 Dose: Infused Documented By: SOFYA Lactulose (Lactulose 20 Gm/30 Ml Solution) 20 gm PO DAILY [facility] Last Admin: 06/19/23 12:10 Dose: 20 gm Documented By: SOFYA Levalbuterol HCl (Levalbuterol Hcl 1.25 Mg/3 Ml Vial.Neb) 1.25 mg INHALE RQ4H [facility] Last Admin: 06/19/23 11:33 Dose: 1.25 mg Documented By: YULY Magnesium Oxide (Magnesium Oxide 400 Mg Tablet) 400 mg PO DAILY [facility] Last Admin: 06/19/23 08:01 Dose: 400 mg Documented By: SOFYA Metoprolol Tartrate (Metoprolol Tartrate 12.5 Mg Halftab) 12.5 mg PO BID [facility]; Protocol Last Admin: 06/19/23 08:01 Dose: 12.5 mg Documented By: SOFYA Midodrine (Midodrine Hcl 5 Mg Tablet) 5 mg PO TID [facility] Last Admin: 06/19/23 08:01 Dose: 5 mg Documented By: SOFYA Omeprazole (Omeprazole 40 Mg Capsule.Dr) 40 mg PO DAILY@0630 [facility] Last Admin: 06/19/23 05:36 Dose: 40 mg Documented By: BHARGAV Ondansetron HCl (Ondansetron Hcl 4 Mg/2 Ml Vial) 4 mg IVPUSH Q8H PRN PRN Reason: Nausea and Vomiting Last Admin: 06/15/23 21:54 Dose: 4 mg Documented By: BHARGAV Comments: pt reports feels nauseated. Pentoxifylline (Pentoxifylline Er 400 Mg Tablet.Er) 400 mg PO DAILY [facility] Last Admin: 06/19/23 08:01 Dose: 400 mg Documented By: SOFYA Rifaximin (Rifaximin 550 Mg Tablet) 550 mg PO BID [facility] Last Admin: 06/19/23 08:01 Dose: 550 mg Documented By: SOFYA Senna (Sennosides 8.6 Mg Tablet) 17.2 mg PO BEDTIME PRN PRN Reason: Constipation Last Admin: 06/12/23 21:53 Dose: 17.2 mg Documented By: PATRICIA Sodium Chloride (0.9 % Sodium Chloride Flush 3 Ml Syringe) 3 ml IVFLUSH QSHIFT [facility] Last Admin: 06/19/23 07:26 Dose: 3 ml Documented By: SOFYA Thiamine HCl (Thiamine Hcl 100 Mg Tablet) 100 mg PO DAILY [facility] Last Admin: 06/19/23 08:01 Dose: 100 mg Documented By: SOFYA Labs 06/18/23 06:38 06/18/23 06:38 Assessment and Plan (1) Lower GI bleed: Status: Acute (2) Hepatic encephalopathy: Status: Acute (3) Alcoholic hepatitis: Status: Acute Assessment and Plan: 63-year-old female with history of alcoholic cirrhosis complicated by portal venous hypertension and ascites, alcohol use disorder, gout, GERD admitted for further management of acute kidney injury and alcoholic hepatitis Acute metabolic vs toxic metabolic encephalopathy no new bleeding episode h/h seems fine oriented x3 ammonia normal,head ct-negative ,no fever ct abd -portal htn ,bleeding scan -negative h/h stable in range : 9-10 range plan: switch to po ppi,octerotide-stopped , received transfuse 2 ffp ,1 platlets ,2prbc got vitamink 10 mg x3 days ,continue lactulose, ceftriaxone day4 for prophylax. no bm today ,encourage to take lactulose . moniter for bleeding and cbc daily . Desats/sob: improved , off oxygen cxr shows ? fluid congestion/has acsitis -got paracentesis on 06/07 and 06/13 -2 liter(06/07) and 2.7(06/13) liter fluid removed respectively lasix stopped,nephro recomended to switch to diurnal considerin hypernatremia. Acute kidney injury- creatinine continues trending slightly up. likely prerenal due to hypovolemia, possible HRS creatinine trending down to 1.8, baseline 1.6. continue albumin added lasix renal function, lytes. plan:avoid nephrotoxins start lasix and spironolactone . Nephrology aware to follow up. Hypernatremia : possible sec to dec po intake and npo yeterday free water 200 ml q6hr moniter bmp closely acute alcoholic hepatitis on a background of cirrhosis complicated by ascites, portal venous hypertension diagnostic paracentesis in the ED negative for SBP gastroenterology consult>Prednisolone taper per GI (Start 40mg daily, decrease by 10mg q3-4 days (intiated 06/07). 06/11 Hold steroid due to question GI Bleed (see below) inr 1.5 bilirubin trending up -?gi bleed ,transfusion,porgressive liver dis. plan: lfts and cr trending down s/p paracentesis today,added albumin s/p paracentesis 06/07 with removal of 2L,paracentesis prn - declined paracentesis 06/09, today wants paracentesis. therapeutic paracentesis ordered for 06/13 when IR returns, NPO after midnight Per nephrology, hold lasix 20/spironolactone 50 (06/10),currently on diurnal ,also added Pentoxyfyline,hold steriods due to bleed . Acute blood loss due to gi bleed on chronic anemia: Stool occult blood positive Iron and iron sats ,tibc ,b12 -seems fine ,folate is low hold steroids for now,continue folate gallbladder mass- ruled out seen by surgery, rec Bx - not a candidate for multiple reasons per IR, rec MRI MRI 06/08 negative for gallbladder mass, shows cholelithiasis without choledocolithiasis or biliary obtruction. Chronic thrombocytopenia due to cirrhosis Alcohol use disorder reports last alcoholic beverage was Easter Tuesday but desires rehab addiction medicine consult pending Hypotension:resolved. due to liver disease, Not sepsis. Given IVF and albumin. cotninue metoprolol . Monitor BP. gout continue allopurinol GERD continue PPI DVT prophylaxis-SCD boots Full code continue hospital stay for management of encephalopathy - acute blood loss on ch anemia, multifcatorial ( hepatic encephalopathy,also metabolic component due to renal failure )-moniter on lactulose and cbc monitering ,lft monitering Quality Stroke Does the patient have a stroke diagnosis?: No VTE Prior VTE?: No VTE Risk Level:: Medical - moderate - high VTE Device Contraindication: N/A - Device Ordered VTE Drug Contraindication: Treatment Not Indicated
--- NOTE | 2023-06-19 23:30 | PC.NURSE ---
Assumed care of pt at 19:15. Handoff report given to oncoming RN at 23:00. Please see shift assessment, tasks, and MAR for full details.
[2023-06-20] VITALS (13 sets, daily range): BP systolic 97–114; BP diastolic 48–66; PULSE 64–96; RESP 16–20; TEMP 36.5–36.9; O2SAT 96–99
[2023-06-20] MEDS: Omeprazole 40 MG CAPSULE.DR PO (06:09)
[2023-06-20] MEDS: guaiFENesin 200 MG/10 ML 10 ML LIQUID PO ×6 (06:09→23:58)
[2023-06-20 06:11] LABS: Alanine Aminotransferase 24 U/L (0-31); Albumin Level 3.4 g/dL (3.5-5.0); Alkaline Phosphatase 175 U/L (39-117); Anion Gap 13 (12-20); Aspartate Amino Transferase 45 U/L (5-31); Bilirubin Total 16.3 mg/dL (0.0-1.0); Blood Urea Nitrogen 38 mg/dL (9-16); Calcium 8.5 mg/dL (8.4-10.2); Carbon Dioxide 21 mmol/L (22-29); Chloride 111 mmol/L (96-108); Creatinine Clr Calc Pharmacy 31.7; Estimated Glomerular Filt Rate 36; Glucose Random 107 mg/dL (60-115); Potassium 3.5 mmol/L (3.3-5.1); Sodium 141 mmol/L (135-145); Total Protein 5.4 g/dL (6.5-8.0)
[2023-06-20 06:12] LABS: Hematocrit 26.5 % (37.0-47.0); Hemoglobin 9.5 g/dl (12.0-16.0)
[2023-06-20] MEDS: levalbuterol HCL 1.25 MG/3 ML VIAL.NEB INHALE ×5 (07:22→23:35)
[2023-06-20] MEDS: Metoprolol Tartrate 12.5 MG HALFTAB PO ×2 (08:25→20:03)
[2023-06-20] MEDS: Magnesium Oxide 400 MG TABLET PO (08:25)
[2023-06-20] MEDS: Benzonatate 100 MG CAPSULE PO ×3 (08:25→20:03)
[2023-06-20] MEDS: Lactulose 20 GM/30 ML SOLUTION PO (08:25)
[2023-06-20] MEDS: Pentoxifylline ER 400 MG TABLET.ER PO (08:25)
[2023-06-20] MEDS: Thiamine HCL 100 MG TABLET PO (08:25)
[2023-06-20] MEDS: allopurinoL 300 MG TABLET PO (08:25)
[2023-06-20] MEDS: Midodrine HCl 5 MG TABLET PO ×3 (08:25→20:03)
[2023-06-20] MEDS: Folic Acid 1 MG TABLET PO (08:25)
[2023-06-20] MEDS: Chlorothiazide Sodium 500 MG VIAL IVPUSH (08:25)
[2023-06-20] MEDS: rifAXIMin 550 MG TABLET PO ×2 (08:25→20:03)
[2023-06-20] MEDS: 0.9 % Sodium Chloride Flush 3 ML SYRINGE IVFLUSH ×3 (08:26→20:03)
--- NOTE | 2023-06-20 11:46 | HO.PM.IMPN ---
Subjective Subjective Date of Service: 06/20/23 Interval History: Encephalopathy, GI bleed Review of Systems Menstal status improved significantly no bleedin has jaubdice no fevers had 2-3 bm's yesterday per patient. Physical Exam Vital Signs: Vital Signs: Last Vital Signs Temp 98 F 06/20/23 11:00 Pulse 64 06/20/23 11:08 Resp 16 06/20/23 11:08 BP 106/61 06/20/23 11:00 Pulse Ox 99 06/20/23 11:00 O2 Del Method Room Air 06/20/23 11:00 O2 Flow Rate 2 06/19/23 04:00 BMI result Body Mass Index 23.7 Appearance: Alert.? Oriented X3,generally weak,sob improving skin-jaundiced ,sclera icteric cvs: rrr, [id number] , no murmur res: clear to auscultation ,no rhonchii or wheezing abd: no rebound or guarding ,nt ,nd, bs present,has some ascitis. ext pulses present , no cyanosis . neuro: axo3 , nonfocal. Objective Data Active Medications Acetaminophen (Acetaminophen 325 Mg Tablet) 650 mg PO Q6H PRN PRN Reason: Pain, Mild (Pain Scale 1-3) Last Admin: 06/12/23 02:06 Dose: 650 mg Allopurinol (Allopurinol 300 Mg Tablet) 300 mg PO DAILY [facility] Last Admin: 06/20/23 08:25 Dose: 300 mg Documented By: CORRINA Benzonatate (Benzonatate 100 Mg Capsule) 100 mg PO TID [facility] Last Admin: 06/20/23 08:25 Dose: 100 mg Documented By: CORRINA Chlorothiazide Sodium (Chlorothiazide Sodium 500 Mg Vial) 500 mg IVPUSH DAILY [facility]; Protocol Last Admin: 06/20/23 08:25 Dose: 500 mg Documented By: CORRINA Folic Acid (Folic Acid 1 Mg Tablet) 1 mg PO DAILY [facility] Last Admin: 06/20/23 08:25 Dose: 1 mg Documented By: CORRINA Guaifenesin (Guaifenesin 200 Mg/10 Ml 10 Ml Liquid) 10 ml PO Q4H [facility] Last Admin: 06/20/23 08:25 Dose: 10 ml Documented By: CORRINA Ceftriaxone Sodium 1 gm/ (Sodium Chloride) 50 mls @ 100 mls/hr IV Q24H [facility] Last Infusion: 06/19/23 12:18 Dose: Infused Documented By: SOFYA Lactulose (Lactulose 20 Gm/30 Ml Solution) 20 gm PO DAILY [facility] Last Admin: 06/20/23 08:25 Dose: 20 gm Documented By: CORRINA Levalbuterol HCl (Levalbuterol Hcl 1.25 Mg/3 Ml Vial.Neb) 1.25 mg INHALE RQ4H [facility] Last Admin: 06/20/23 11:06 Dose: 1.25 mg Documented By: CLARY Magnesium Oxide (Magnesium Oxide 400 Mg Tablet) 400 mg PO DAILY [facility] Last Admin: 06/20/23 08:25 Dose: 400 mg Documented By: CORRINA Metoprolol Tartrate (Metoprolol Tartrate 12.5 Mg Halftab) 12.5 mg PO BID [facility]; Protocol Last Admin: 06/20/23 08:25 Dose: 12.5 mg Documented By: CORRINA Midodrine (Midodrine Hcl 5 Mg Tablet) 5 mg PO TID [facility] Last Admin: 06/20/23 08:25 Dose: 5 mg Documented By: CORRINA Omeprazole (Omeprazole 40 Mg Capsule.Dr) 40 mg PO DAILY@0630 [facility] Last Admin: 06/20/23 06:09 Dose: 40 mg Documented By: REBEKAH Ondansetron HCl (Ondansetron Hcl 4 Mg/2 Ml Vial) 4 mg IVPUSH Q8H PRN PRN Reason: Nausea and Vomiting Last Admin: 06/15/23 21:54 Dose: 4 mg Documented By: BHARGAV Comments: pt reports feels nauseated. Pentoxifylline (Pentoxifylline Er 400 Mg Tablet.Er) 400 mg PO DAILY [facility] Last Admin: 06/20/23 08:25 Dose: 400 mg Documented By: CORRINA Rifaximin (Rifaximin 550 Mg Tablet) 550 mg PO BID [facility] Last Admin: 06/20/23 08:25 Dose: 550 mg Documented By: CORRINA Senna (Sennosides 8.6 Mg Tablet) 17.2 mg PO BEDTIME PRN PRN Reason: Constipation Last Admin: 06/12/23 21:53 Dose: 17.2 mg Documented By: PATRICIA Sodium Chloride (0.9 % Sodium Chloride Flush 3 Ml Syringe) 3 ml IVFLUSH QSHIFT [facility] Last Admin: 06/20/23 08:26 Dose: 3 ml Documented By: CORRINA Thiamine HCl (Thiamine Hcl 100 Mg Tablet) 100 mg PO DAILY [facility] Last Admin: 06/20/23 08:25 Dose: 100 mg Documented By: CORRINA Labs 06/20/23 05:33 06/20/23 05:33 Labs: Laboratory Results - last 24 hr 06/20/23 05:33 Anion Gap 13 Estim Creat Clear Calc 31.7 Estimated GFR 36 Random Glucose 107 Calcium 8.5 D Total Bilirubin 16.3 H AST 45 H ALT 24 Alkaline Phosphatase 175 H Total Protein 5.4 L Albumin 3.4 L Assessment and Plan (1) Lower GI bleed: Status: Acute (2) Hepatic encephalopathy: Status: Acute (3) Alcoholic hepatitis: Status: Acute Assessment and Plan: 63-year-old female with history of alcoholic cirrhosis complicated by portal venous hypertension and ascites, alcohol use disorder, gout, GERD admitted for further management of acute kidney injury and alcoholic hepatitis Acute metabolic vs toxic metabolic encephalopathy no new bleeding episode h/h seems fine oriented x3 ammonia normal,head ct-negative ,no fever ct abd -portal htn ,bleeding scan -negative h/h stable in range : 9-10 range plan: received iv p ppi,octerotide as well as transfused 2 ffp ,1 platlets ,2prbc, got vitamink 10 mg x3 days -during this admission. continue lactulose, ceftriaxone day5 for prophylax. 2-3 bm ,encourage to take lactulose,switched to oral ppi . h/h stable between 9-10 moniter Desats/sob:- possible multifcatorial (ascitis ,Low albumin) improved , off oxygen cxr showed ? fluid congestion/has acsitis got paracentesis on 06/07 and 06/13 -2 liter(06/07) and 2.7(06/13) liter fluid removed respectively,iv albumin. recieved iv diural due to ascitis. Acute kidney injury- creatinine continues trending slightly up. likely prerenal due to hypovolemia, possible HRS creatinine trending down to baseline 1.4 range moniter renal function /electrolytes -siwtch to po diuretics . start lasix and spironolactone . Nephrology aware to follow up. Hypernatremia : improved,moniter bmp acute alcoholic hepatitis on a background of cirrhosis complicated by ascites, portal venous hypertension diagnostic paracentesis in the ED negative for SBP gastroenterology consult>Prednisolone taper per GI (Start 40mg daily, decrease by 10mg q3-4 days (intiated 06/07). 06/11 Hold steroid due to question GI Bleed (see below) inr 1.5 bilirubin trending up -?gi bleed ,transfusion,porgressive liver dis. plan: lfts flat and cr trending down s/p paracentesis today,added albumin s/p paracentesis 06/07 with removal of 2L,paracentesis prn - declined paracentesis 06/09, today wants paracentesis. therapeutic paracentesis ordered for 06/13. started lasix 20/spironolactone 50 (06/10),currently on diurnal ,also added Pentoxyfyline( adjust as per renal function),hold steriods due to bleed . Gi and nephrology following Acute blood loss due to gi bleed on chronic anemia: Stool occult blood positive Iron and iron sats ,tibc ,b12 -seems fine ,folate is low stopped steroidsdue to bleed ,continue folate gallbladder mass- ruled out seen by surgery, rec Bx - not a candidate for multiple reasons per IR, rec MRI MRI 06/08 negative for gallbladder mass, shows cholelithiasis without choledocolithiasis or biliary obtruction. Chronic thrombocytopenia due to cirrhosis Alcohol use disorder reports last alcoholic beverage was Easter Tuesday but desires rehab addiction medicine consult pending Hypotension:resolved. due to liver disease, Not sepsis. Given IVF and albumin. cotninue metoprolol . Monitor BP. gout continue allopurinol GERD continue PPI DVT prophylaxis-SCD boots generlaised weak -added Pt . Full code continue hospital stay for management of encephalopathy - acute blood loss on ch anemia, multifcatorial ( hepatic encephalopathy,also metabolic component due to renal failure )-moniter on lactulose and cbc monitering ,lft monitering Quality Stroke Does the patient have a stroke diagnosis?: No VTE Prior VTE?: No VTE Risk Level:: Medical - moderate - high VTE Device Contraindication: N/A - Device Ordered VTE Drug Contraindication: Treatment Not Indicated
[2023-06-20] MEDS: cefTRIAXone sodium 1 GM in 0.9 % Sodium Chloride 50 ML IV (12:09)
[2023-06-20] MEDS: Furosemide 20 MG TABLET PO (12:20)
--- NOTE | 2023-06-20 13:51 | MHC.CM.PN ---
Pt has not been medically cleared for DC yet. She requires ongoing treatment for Encephalopathy and GI bleed. DC plan is to be determined, will have PT eval when ready and may recommended home health services. CM to follow and assist with DC plan.
[2023-06-20] MEDS: Spironolactone 25 MG TABLET PO (16:56)
--- NOTE | 2023-06-20 20:07 | P.EN_ITS ---
Event Note Date of Service: 06/20/23 Event Note: Addiction Note Patient seen on 06/07 and 06/10/23 by crisis intervention counselor, however note was documented in the outpatient EMR instead of the acute EMR. Below is the note as written by RN: LuanCathy Aurelia [facility] : 1960 [id number] 06/10/23 12:19 - Nursing Note by Gillian Robles NP Acct Num: [id number] : 1960 Patient Age: 63 Intake Intake Visit Reasons: weakness, anorexia, ascites Allergies codeine [CODEINE] Allergy (Unknown, Verified 06/06/23 17:52) NAUSEA Nursing Note 06/07 T/w met with patient in 346 She is frail, pleasant, elder woman, noticeably jaundiced Had paracentesis earlier today Reports she wants to go to rehab Her last drink was [place] when she had a little champagne Her longest time in recovery was in 2011 for a few months She trialed naltrexone in 2011 She is a poor historian, frequently distracted and difficult to obtain information from States she wants to be the person I used to be Is unsure what treatment or recovery support she would like at this time other than detox VANDANA information left at bedside for patient to review Coding Initialized on 06/10/23 12:19 - END OF NOTE Time Spent With Patient Time: Total time managing care of this patient today ____ minutes.
[2023-06-21] VITALS (7 sets, daily range): BP systolic 98–106; BP diastolic 56–60; PULSE 64–76; RESP 16–20; TEMP 36.2–37.2; O2SAT 95–99
[2023-06-21] MEDS: guaiFENesin 200 MG/10 ML 10 ML LIQUID PO ×3 (04:57→11:52)
[2023-06-21] MEDS: Omeprazole 40 MG CAPSULE.DR PO (04:57)
[2023-06-21 07:27] LABS: INTERNATIONAL NORM RATIO 1.8 (0.9-1.1); Prothrombin Time 21.6 SEC (11.1-13.3)
[2023-06-21 07:28] LABS: Hematocrit 26.2 % (37.0-47.0); Hemoglobin 9.4 g/dl (12.0-16.0); Mean Corpuscular HGB Conc 35.9 g/dl (31.0-35.0); Mean Corpuscular Hemoglobin 33.8 pg (27.0-33.0); Mean Corpuscular Volume 94.2 fL (80.0-98.0); Mean Platelet Volume 12.3 fL (9.4-12.3); Red Blood Count 2.78 X10*6/uL (4.20-5.50); Red Cell Distribution Width 19.8 % (11.0-16.0); White Blood Count 9.5 X10*3/uL (4.8-10.8)
[2023-06-21 07:29] LABS: Platelet Count 80 X10*3/uL (160-400)
[2023-06-21] MEDS: levalbuterol HCL 1.25 MG/3 ML VIAL.NEB INHALE ×2 (07:48→11:22)
[2023-06-21 08:01] LABS: Alanine Aminotransferase 22 U/L (0-31); Albumin Level 3.2 g/dL (3.5-5.0); Alkaline Phosphatase 182 U/L (39-117); Anion Gap 11 (12-20); Aspartate Amino Transferase 48 U/L (5-31); Bilirubin Total 16.4 mg/dL (0.0-1.0); Blood Urea Nitrogen 38 mg/dL (9-16); Calcium 8.3 mg/dL (8.4-10.2); Carbon Dioxide 22 mmol/L (22-29); Chloride 110 mmol/L (96-108); Creatinine Clr Calc Pharmacy 32.1; Estimated Glomerular Filt Rate 36; Glucose Random 116 mg/dL (60-115); Potassium 3.6 mmol/L (3.3-5.1); Sodium 139 mmol/L (135-145); Total Protein 5.2 g/dL (6.5-8.0)
--- NOTE | 2023-06-21 08:24 | PM.DS ---
DS: Providers Provider Date of Service: 06/21/23 Date of admission: 06/06/23 20:37 Primary care physician: Satish Sharma MD Consults: 06/06/23 20:43 Consult to Gastroenterology Routine Consulting Provider: Audie Joshi Reason for consultation: cirrhosis, ascites, hyperbilirubinemia 06/06/23 20:48 Addiction Medicine Routine Consulting Provider: Addiction Covering Reason for consultation: etoh use disorder, desires rehab 06/07/23 01:06 Consult to General Surgery Routine Consulting Provider: [facility] Reason for consultation: Gallbladder mass 06/07/23 13:09 Consult to Nephrology Routine Consulting Provider: [facility] Reason for consultation: nando 06/12/23 09:17 Consult to Neurology Routine Consulting Provider: [facility] Reason for consultation: ?WE 06/15/23 10:04 Consult to Critical Care Routine Consulting Provider: Zack Frausto Reason for consultation: Goal of care Has provider been notified: Yes 06/20/23 09:34 Addiction Medicine Routine Consulting Provider: Addiction Covering Reason for consultation: Alcohol abuse Has provider been notified: No DS: Diagnosis Discharge Diagnosis (1) Hepatic encephalopathy: Status: Acute (2) Alcoholic hepatitis: Status: Acute (3) Lower GI bleed: Status: Acute DS: Summary Hospital Course Hospital Course: HPI: 63-year-old female with history of alcoholic cirrhosis complicated by portal vein hypertension and ascites, alcohol use disorder, gout, hypertension, GERD presented to the ED earlier today for evaluation of anorexia and general weakness at the recommendation of her tile fitter, Dr. Reddy. She underwent a paracentesis last Tuesday and had 3.5 L drained. Since then, she states she has had increased weakness and anorexia. Really only tolerating popsicles and ice cream as well as fluids. She reports abdominal pain and dyspnea when sitting up straight with some relief of the symptoms when lying down. She denies any nausea, vomiting. Has chronic diarrhea but denies any hematochezia or melena. No fevers or chills. She states her last alcohol use was a small amount of champagne on Tuesday and she does desire rehab. She states she has been smoking about 1 pack cigarettes per day but since she has been feeling unwell has cut back to 4 cigarettes daily and desires to quit altogether. Denies any illicit drug use. Since arrival, blood pressures have been soft with BP 101/56 on admission though appears to have low blood pressure at baseline likely secondary to her cirrhosis. There is leukocytosis of 13.9. Stable normocytic anemia 11.2/30.4%. Platelets 129. PT 17.1, INR 1.4. Creatinine 4.43, baseline around 1.6. BUN 63. Sodium 128, CO2 17, electrolytes otherwise normal. Total bilirubin 15.5. AST 118, ALT 30, alkaline phosphatase 302. CRP 4.29. Albumin 2.1. Diagnostic paracentesis performed bedside with peritoneal WBC of 0.026 x 10^3 with 13% neutrophils. CXR shows bronchial wall thickening possibly infectious versus inflammatory etiology. In the ED, has received 1 L IV NS and albumin. Hospital course: #. Acute hepatic encephalopathy. Mentation improved with lactulose which was titrated to 2-3 bowel movements per day. Patient was evaluated by Neurology and no concern for Wernicke's encephalopathy. Mentation at baseline prior to discharge. Patient is oriented to self, place, time and person prior to discharge. #. Acute kidney injury on CKD: Due to tubular injury. Initially resuscitated with IV crystalloids during hospitalization. Nephrology was consulted. Patient resumed on p.o. diuretics prior to discharge. Creatinine at baseline around 1.4 prior to discharge. Close follow-up with Nephrology outpatient #. Acute alcoholic hepatitis in a patient with cirrhosis: Initially initiated on prednisone which was discontinued due to questionable GI bleed. Patient underwent multiple paracentesis throughout hospital course. Patient will be discharged with pentoxifylline and close follow-up with GI. #. Acute blood loss anemia: Gastroenterology was consulted. Patient with resolution of GI bleed prior to discharge. Hemoglobin stable prior to discharge. Patient will be discharged with p.o. PPI. #. Gallbladder mass on imaging: Initially noted on CT scan. Seen by general surgery who recommended biopsy but patient was deemed be not a candidate as per IR. MRI obtained which was negative for gallbladder mass #. Alcohol use disorder: Patient counseled extensively regarding cessation. Was seen by Addiction Team prior to discharge. VANDANA information given to patient Status at Discharge Overall status at discharge: patient is back to baseline Time Attestation Discharge Coordination Time (in mins): 45 minutes Quality: Safe Use of Opioids Does Pt have an Active Cancer Diagnosis on the Problem List?: No Quality: Stroke Does the patient have a stroke diagnosis?: No Physical Exam Vital Signs: Vital Signs: Last Vital Signs Temp 98.1 F 06/21/23 07:31 Pulse 71 06/21/23 07:51 Resp 16 06/21/23 07:51 BP 98/60 06/21/23 07:31 Pulse Ox 97 06/21/23 07:31 O2 Del Method Room Air 06/21/23 07:31 O2 Flow Rate 2 06/19/23 04:00 BMI result Body Mass Index 23.7 Appearance: Alert.? Oriented X3,generally weak,sob improving skin-jaundiced ,sclera icteric cvs: rrr, [id number] , no murmur res: clear to auscultation ,no rhonchii or wheezing abd: no rebound or guarding ,nt ,nd, bs present,has some ascitis. ext pulses present , no cyanosis . neuro: axo3 , nonfocal. DS: Data Data Completed and Pending Labs on day of discharge: Laboratory Results - last 24 hr 06/21/23 06/21/23 06:38 06:40 WBC 9.5 RBC 2.78 L Hgb 9.4 L Hct 26.2 L MCV 94.2 MCH 33.8 H MCHC 35.9 H RDW 19.8 H Plt Count 80 L MPV 12.3 Absolute Nucleated RBC 0.000 Nucleated RBC % (auto) 0.0 PT 21.6 H D INR 1.8 H Sodium 139 Potassium 3.6 Chloride 110 H Carbon Dioxide 22 Anion Gap 11 L BUN 38 H Creatinine 1.46 H Estim Creat Clear Calc 32.1 Estimated GFR 36 Random Glucose 116 H Calcium 8.3 L Total Bilirubin 16.4 H AST 48 H ALT 22 Alkaline Phosphatase 182 H Total Protein 5.2 L Albumin 3.2 L Imaging Chest x-ray: Radiologist's impression: ITS Impressions Chest X-Ray 06/06/23 18:50 IMPRESSION: Bronchial wall thickening may be infectious and/or inflammatory in etiology. Abdomen Ultrasound 06/06/23 21:03 IMPRESSION: 1. Cirrhotic appearing liver with ascites. 2. Enlarging gallbladder mass. Surgical consultation is recommended. Abdomen/Pelvis CT 06/07/23 11:48 IMPRESSION: 1. Large volume of abdominal ascites. 2. Hepatomegaly. Nodular contour of liver surface suggesting underlying cirrhosis. 3. Cholelithiasis. Fleischner guidelines were followed. Paracentesis Ultrasound 06/08/23 12:30 IMPRESSION: Successful Ultrasound-guided paracentesis as described above. No immediate complications Abdomen MRI 06/09/23 18:25 Impression: * Cholelithiasis without evidence of choledocholithiasis or biliary tract obstruction. * No evidence of gallbladder mass. * Cirrhotic liver, likely portal venous hypertension, mild splenomegaly, ascites and diffuse mesenteric edema. Head CT 06/12/23 14:22 IMPRESSION: No acute intracranial pathology. Paracentesis Ultrasound 06/14/23 09:40 Impression: Ultrasound-guided paracentesis as described above. No immediate complications Abdomen/Pelvis CT 06/15/23 12:31 IMPRESSION: No significant radiographic change compared with 8 days prior. Hepatic cirrhosis. Ascites and splenomegaly, consistent with portal hypertension. Additional findings, as above. GI Bleed Scan Nuclear Medicine 06/15/23 14:45 IMPRESSION: No gastrointestinal bleeding is identified. A subtle left lower quadrant bleeding site may be masked by the patient's hand which was moved over this region during the last part of the study as described above. Chest X-Ray 06/16/23 13:13 IMPRESSION: Interstitial prominence with upper zone redistribution and bronchial thickening. Findings may be secondary to pulmonary edema. Discharge Plan Discharge Anticipated Discharge Date/Time: 06/21/23 08:38 Patient Disposition: Home, Self-Care Discharge Diagnosis: Acute hepatic encephalopathy Alcoholic liver cirrhosis Acute kidney injury on chronic kidney disease Referrals: Butch Alvarez MD [Physician] - 1 Week Bautista Reddy MD [Physician] - 1 Week Satish Sharma MD [Primary Care Provider] - 1 Week Discharge Medications: New magnesium oxide 400 mg (241.3 mg magnesium) Tablet 400 mg PO DAILY 300 Days Qty: 300 0RF Xifaxan 550 mg Tablet 550 mg PO BID 30 Days Qty: 60 0RF metoprolol tartrate 25 mg tablet 12.5 mg PO BID 30 Days Qty: 30 0RF omeprazole 40 mg Capsule,Delayed Release(Dr/Ec) 40 mg PO DAILY@0630 30 Days Qty: 30 0RF lactulose 20 gram/30 mL Solution 20 g PO DAILY 30 Days Qty: 900 0RF pentoxifylline 400 mg Tablet Extended Release 400 mg PO DAILY 30 Days Qty: 30 0RF folic acid 1 mg Tablet 1 mg PO DAILY 30 Days Qty: 30 0RF thiamine mononitrate (vit B1) 100 mg Tablet 100 mg PO DAILY 30 Days Qty: 30 0RF spironolactone 25 mg Tablet 25 mg PO BID@0900,1800 30 Days Qty: 60 0RF Protocol: Hold for SBP< HOLD for SBP < : 90 metoprolol tartrate 25 mg tablet 12.5 mg PO BID 30 Days Qty: 30 0RF midodrine 5 mg Tablet 5 mg PO TID 30 Days Qty: 90 0RF Continued allopurinol 300 mg tablet 300 mg PO DAILY furosemide 20 mg tablet 20 mg PO DAILY 30 Days Qty: 0 0RF Discontinued metoprolol succinate 50 mg tablet extended release 24 hr 50 mg PO DAILY amlodipine 5 mg tablet 5 mg PO DAILY omeprazole 20 mg capsule,delayed release(DR/EC) 20 mg PO DAILY spironolactone 50 mg tablet 50 mg PO DAILY magnesium 250 mg Tablet 250 mg PO DAILY Discharge Orders: Discharge Order (Routine); Ordered 06/21/23 Ordered By: Tristan Stephenson Diet: Low salt diet Activity on Discharge: As tolerated Stand Alone Forms: Patient Portal Discharge page Print Language: Mauritian Care Plan Goals: Follow-up with PCP within 1 week Follow-up with Nephrology with close monitoring of kidney function Follow-up with gastroenterology with close monitoring of liver function Health Concerns: Alcoholic cirrhosis - recommend complete cessation of alcohol Alcohol use disorder Acute hepatic encephalopathy-resolved Chronic kidney disease Plan of Treatment: Medication additions/changes: Lactulose 20 g daily Pentoxifylline 400 mg daily Rifaximin 550 mg b.i.d. Spironolactone 25 mg b.i.d. Metoprolol 12.5 mg b.i.d. Magnesium oxide 400 mg daily Thiamine 100 mg daily Folic acid 1 mg daily Midodrine 5 mg t.i.d. Omeprazole 40 mg daily Assessment: As above
[2023-06-21] MEDS: Chlorothiazide Sodium 500 MG VIAL IVPUSH (08:27)
[2023-06-21] MEDS: Furosemide 20 MG TABLET PO (08:28)
[2023-06-21] MEDS: rifAXIMin 550 MG TABLET PO (08:28)
[2023-06-21] MEDS: Midodrine HCl 5 MG TABLET PO ×2 (08:28→14:24)
[2023-06-21] MEDS: Spironolactone 25 MG TABLET PO (08:28)
[2023-06-21] MEDS: Thiamine HCL 100 MG TABLET PO (08:29)
[2023-06-21] MEDS: allopurinoL 300 MG TABLET PO (08:29)
[2023-06-21] MEDS: 0.9 % Sodium Chloride Flush 3 ML SYRINGE IVFLUSH (08:29)
[2023-06-21] MEDS: Metoprolol Tartrate 12.5 MG HALFTAB PO (08:29)
[2023-06-21] MEDS: Pentoxifylline ER 400 MG TABLET.ER PO (08:29)
[2023-06-21] MEDS: Folic Acid 1 MG TABLET PO (08:29)
[2023-06-21] MEDS: Benzonatate 100 MG CAPSULE PO ×2 (08:29→14:24)
[2023-06-21] MEDS: Magnesium Oxide 400 MG TABLET PO (08:30)
[2023-06-21] MEDS: Lactulose 20 GM/30 ML SOLUTION PO (08:44)
--- NOTE | 2023-06-21 10:14 | P.PNNP_ITS ---
Subjective Subjective Date of Service: 06/21/23 Interval history: Events noted Physical Exam 2 Vital Signs: Vital Signs: Last Vital Signs Temp 98.1 F 06/21/23 07:31 Pulse 71 06/21/23 07:51 Resp 16 06/21/23 07:51 BP 98/60 06/21/23 08:28 Pulse Ox 97 06/21/23 07:31 O2 Del Method Room Air 06/21/23 07:31 O2 Flow Rate 2 06/19/23 04:00 BMI result Body Mass Index 23.7 Const: General: comfortable and no acute distress O rientation/consciousness: patient oriented x3 HEENT: Head: Yes normocephalic Mouth: Normal oral and palatal mucosa present Eyes: EOM: EOMs intact bilaterally Neck: Neck: Yes supple Resp: Auscultation: clear to auscultation bilaterally Cardio: Jugular venous distension: no JVD Rate: regular rate GI: Palpation (GI): Soft to palpation Auscultation: normal bowel sounds : General: Yes no CVA tenderness Back/Spine/Pelvis: Back: no CVA tenderness Skin: General skin exam: no rashes or lesions noted Neuro: General: patient oriented x3 and moves all extremities Extrem: General: Yes no pedal edema Objective Data Labs 06/21/23 06:40 06/21/23 06:38 Labs: Laboratory Results - last 24 hr 06/21/23 06/21/23 06:38 06:40 WBC 9.5 RBC 2.78 L Hgb 9.4 L Hct 26.2 L MCV 94.2 MCH 33.8 H MCHC 35.9 H RDW 19.8 H Plt Count 80 L MPV 12.3 Absolute Nucleated RBC 0.000 Nucleated RBC % (auto) 0.0 PT 21.6 H D INR 1.8 H Sodium 139 Potassium 3.6 Chloride 110 H Carbon Dioxide 22 Anion Gap 11 L BUN 38 H Creatinine 1.46 H Estim Creat Clear Calc 32.1 Estimated GFR 36 Random Glucose 116 H Calcium 8.3 L Total Bilirubin 16.4 H AST 48 H ALT 22 Alkaline Phosphatase 182 H Total Protein 5.2 L Albumin 3.2 L Microbiology Microbiology Results: Microbiology 06/06/23 19:42 Ascites Fluid Gram Stain - Final 06/06/23 19:42 Ascites Fluid Anaerobic Culture - Final NO GROWTH AFTER 5 DAYS 06/06/23 19:42 Ascites Fluid Body Fluid Culture - Final No growth after 2 days 06/07/23 11:12 Urine clean catch Urine Culture - Final Procedures Date of Service Date of Service: 06/21/23 Assessment & Plan Assessment and plan (1) Lower GI bleed: Status: Acute (2) Hepatic encephalopathy: Status: Acute (3) Acute kidney injury: Status: Acute Plan Acute Kidney Injury due to tubular injury No reason to suspect AIN/GN s/p IV Albumin Had paracentesis; Renal function improving - cr down No indication for renal replacement s/p Mild hypernatremia due to free water deficit from GI loss /decreased free water clearance due to loop diuretics C/W rest of current supportive care for now Shall follow up as out patient Time Spent With Patient Time: Total time managing care of this patient today ____ minutes. Progress Note: Quality Stroke Does the patient have a stroke diagnosis?: No
--- NOTE | 2023-06-21 10:17 | MHC.CM.PN ---
Second IMM given 06/20. Pt is medically cleared for D/C home self-care, pts friend will transport her home.
[2023-06-21] MEDS: cefTRIAXone sodium 1 GM in 0.9 % Sodium Chloride 50 ML IV (11:52)
== END 2023-06-21 14:52 | disposition home or self-care (01) | DRG 432 ==
LOC: HO.ED 20:07 → HO.EDOVER 20:51 → HO.S3 06-07 19:35 → HO.IMC 06-15 08:28
PROVIDERS: Internal Medicine; Nurse Practitioner Acute Care; Physician Assistant; Physician Assistant Medical; Physician Assistant Surgical; Admitting Provider Physician Assistant; Emergency Provider Emergency Medicine; PCP Family Medicine; Visit Provider Student in an Organized Health Care Education/Training Program
DX: K70.31 Alcoholic cirrhosis of liver with ascites (principal); G92.8 Other toxic encephalopathy; K76.7 Hepatorenal syndrome; N17.0 Acute kidney failure with tubular necrosis; E87.1 Hypo-osmolality and hyponatremia; K76.6 Portal hypertension; D62 Acute posthemorrhagic anemia; E87.0 Hyperosmolality and hypernatremia; K62.5 Hemorrhage of anus and rectum; F10.90 Alcohol use, unspecified, uncomplicated; D69.59 Other secondary thrombocytopenia; E78.5 Hyperlipidemia, unspecified; K80.20 Calculus of gallbladder without cholecystitis without obstruction; K70.11 Alcoholic hepatitis with ascites; D63.1 Anemia in chronic kidney disease; K76.82 Hepatic encephalopathy; E86.1 Hypovolemia; G31.84 Mild cognitive impairment of uncertain or unknown etiology; I95.9 Hypotension, unspecified; K21.9 Gastro-esophageal reflux disease without esophagitis; M10.9 Gout, unspecified; I12.9 Hypertensive chronic kidney disease with stage 1 through stage 4 chronic kidney disease, or unspecified chronic kidney disease; F17.210 Nicotine dependence, cigarettes, uncomplicated; Z71.6 Tobacco abuse counseling; N18.30 Chronic kidney disease, stage 3 unspecified; Z20.822 Contact with and (suspected) exposure to COVID-19; Z79.899 Other long term (current) drug therapy
CPT/HCPCS: 36415; 49083; 70450; 71045; 74176; 74183; 76705; 78278; 80048; 80053; 80076; 81001; 81003; 82042; 82140; 82150; 82248; 82272; 82570; 82607; 82746; 83540; 83615; 83690; 83735; 83880; 84300; 84425; 85014; 85018; 85025; 85027; 85610; 85730; 86140; 86704; 86706; 86709; 86803; 86850; 86900; 86901; 86923; 87070; 87073; 87086; 87205; 87340; 87633; 89051; 92950; 93306; 94640; 97161; 99285; A9560; A9585; C9113; J0696; J1205; J1940; J2270; J2354; J2405; J3411; J3430; P9016; P9017; P9047; P9073

== ENCOUNTER 2023-06-06 20:37 | Outpatient (BNV) | payer OTHER, SELFPAY | END 2023-06-14 07:00 | PROVIDERS: Admitting Provider Physician Assistant; Emergency Provider Emergency Medicine; PCP Family Medicine; Visit Provider Internal Medicine | DX: I42.9 Cardiomyopathy, unspecified (principal) | CPT/HCPCS: 93306 ==

== ENCOUNTER 2023-06-06 20:37 | Outpatient (BNV) | payer OTHER, SELFPAY | END 2023-06-08 11:15 | PROVIDERS: Admitting Provider Physician Assistant; Emergency Provider Emergency Medicine; PCP Family Medicine; Visit Provider Physician Assistant Surgical | DX: R18.8 Other ascites (principal) | CPT/HCPCS: 49083 ==

== ENCOUNTER 2023-06-06 20:37 | Outpatient (BNV) | payer OTHER, SELFPAY | END 2023-06-14 09:04 | PROVIDERS: Admitting Provider Physician Assistant; Emergency Provider Emergency Medicine; PCP Family Medicine; Visit Provider Physician Assistant Surgical | DX: R18.8 Other ascites (principal) | CPT/HCPCS: 49083 ==

== ENCOUNTER → 2023-06-06 20:37 | Outpatient (BNV) | payer OTHER, SELFPAY | PROVIDERS: Admitting Provider Physician Assistant; Emergency Provider Emergency Medicine; Visit Provider Surgery | DX: K74.60 Unspecified cirrhosis of liver (principal); R18.8 Other ascites; K82.8 Other specified diseases of gallbladder | CPT/HCPCS: 99223 ==

== ENCOUNTER → 2023-06-06 20:37 | Outpatient (BNV) | payer OTHER, SELFPAY | PROVIDERS: Admitting Provider Physician Assistant; Emergency Provider Emergency Medicine; PCP Family Medicine; Visit Provider Internal Medicine Pulmonary Disease | DX: K76.82 Hepatic encephalopathy (principal); K74.60 Unspecified cirrhosis of liver; K92.2 Gastrointestinal hemorrhage, unspecified; R18.8 Other ascites; N17.9 Acute kidney failure, unspecified | CPT/HCPCS: 99222 ==

== ENCOUNTER → 2023-06-06 20:37 | Outpatient (BNV) | payer OTHER, SELFPAY | PROVIDERS: Admitting Provider Physician Assistant; Emergency Provider Emergency Medicine; PCP Family Medicine; Visit Provider Internal Medicine Nephrology | DX: N17.0 Acute kidney failure with tubular necrosis (principal); K76.82 Hepatic encephalopathy; K92.2 Gastrointestinal hemorrhage, unspecified | CPT/HCPCS: 99223; 99232 ==

== ENCOUNTER → 2023-06-06 20:37 | Outpatient (BNV) | payer OTHER, SELFPAY ==
--- NOTE | 2023-06-10 12:19 | AM.OFFVISNUR ---
Intake Intake Visit Reasons: weakness, anorexia, ascites Allergies codeine [CODEINE] Allergy (Unknown, Verified 06/06/23 17:52) NAUSEA Nursing Note 06/07 T/w met with patient in 346 She is frail, pleasant, elder woman, noticeably jaundiced Had paracentesis earlier today Reports she wants to go to rehab Her last drink was [place] when she had a little champagne Her longest time in recovery was in 2011 for a few months She trialed naltrexone in 2011 She is a poor historian, frequently distracted and difficult to obtain information from States she wants to be the person I used to be Is unsure what treatment or recovery support she would like at this time other than detox VANDANA information left at bedside for patient to review Coding
== END ==
PROVIDERS: Admitting Provider Physician Assistant; Emergency Provider Emergency Medicine; Visit Provider Physician Assistant
DX: K92.2 Gastrointestinal hemorrhage, unspecified (principal); K76.82 Hepatic encephalopathy; K70.11 Alcoholic hepatitis with ascites
CPT/HCPCS: 99223; 99232; 99233; 99239

== ENCOUNTER → 2023-06-06 20:37 | Outpatient (BNV) | payer OTHER, SELFPAY | PROVIDERS: Admitting Provider Physician Assistant; Emergency Provider Emergency Medicine; PCP Family Medicine; Visit Provider Psychiatry & Neurology Neurology | DX: K76.82 Hepatic encephalopathy (principal) | CPT/HCPCS: 99222 ==

== ENCOUNTER 2023-06-30 07:51 | Day surgery (SDC) | payer MEDICARE, SELFPAY ==
--- NOTE | ~2023-06-30 | US_ITS ---
ULTRASOUND GUIDED PARACENTESIS HISTORY: Ascites. Risks and benefits and possible complications were discussed with the patient and consent form was signed. A safe pocket of ascitic fluid was identified right lower quadrant using ultrasound guidance, and the overlying skin was marked, prepped and draped in sterile fashion. 1% lidocaine was used as a local anesthetic. Using ultrasound guidance, a 5 fr catheter was placed into the ascitic pocket. 3.7 liters of yellow fluid was removed passively. The catheter was then removed. A few termite control representative images from before and after the examination were obtained. The procedure was performed by Karlo Portillo PA-C and supervised by Dr. Emery. US/US paracentesis abd w/image IMPRESSION: Ultrasound-guided paracentesis as described above. No immediate complications
[2023-06-30 08:33] VITALS: BP 124/64; PULSE 87; RESP 18; TEMP 36.7; O2SAT 100; BMI 22.7
[2023-06-30 10:20] VITALS: BP 106/58; PULSE 88; RESP 17; TEMP 36.3; O2SAT 98
[2023-06-30] MEDS: Lidocaine HCl 1 % MPF 5 ML VIAL SUBCUT (10:25)
== END 2023-06-30 10:36 | disposition home or self-care (01) ==
PROVIDERS: Physician Assistant Surgical; PCP Family Medicine; Visit Provider Internal Medicine Gastroenterology
DX: K70.31 Alcoholic cirrhosis of liver with ascites (principal); K70.11 Alcoholic hepatitis with ascites; K76.82 Hepatic encephalopathy
CPT/HCPCS: 49083

== ENCOUNTER → 2023-06-30 09:30 | Outpatient (BNV) | payer MEDICARE, SELFPAY | PROVIDERS: PCP Family Medicine; Visit Provider Physician Assistant Surgical | DX: K70.31 Alcoholic cirrhosis of liver with ascites (principal) | CPT/HCPCS: 49083 ==

== ENCOUNTER 2023-07-04 11:03 | Inpatient (IN) | payer MEDICARE, SELFPAY ==
[2023-07-04] VITALS (7 sets, daily range): BP systolic 110–132; BP diastolic 45–77; PULSE 83–125; RESP 13–20; TEMP 36.3–36.9; O2SAT 96–100; BMI 22.1; BMI 24.2
--- NOTE | ~2023-07-04 | US_ITS ---
EXAMINATION: US ABDOMEN COMPLETE CLINICAL INFORMATION: Weakness and ascites with question of portal vein thrombosis. COMPARISON: None available. TECHNIQUE: Real-time imaging of the abdominal viscera. Doppler imaging was performed. FINDINGS: PANCREAS: The visualized portions of the pancreas are unremarkable but a large portion of the gland, including the body and tail, is obscured by bowel gas. VASCULATURE: The portal venous system is patent with normal hepatopedal flow. The main hepatic artery is seen with normal waveform and velocity of 139 cm/s. The hepatic veins appear normal. The IVC appears normal. The splenic vein is visualized and is patent ABDOMINAL AORTA: The proximal, mid, and distal segments are normal in caliber. INFERIOR VENA CAVA: Visualized portions are normal. LIVER: The liver is cirrhotic in appearance with increased echogenicity and lobular border. No focal hepatic lesion. There is no intrahepatic biliary duct dilatation seen. GALLBLADDER: The gallbladder is poorly distended and evaluation is limited. The wall appears thickened at 5 mm. Gallstones are present. COMMON BILE DUCT: Is mildly dilated measuring 0 point cm in diameter. RIGHT KIDNEY: No hydronephrosis. No renal calculi or focal parenchymal lesions. The kidney measures 10.4 cm in maximum dimension. LEFT KIDNEY: No hydronephrosis. No renal calculi or focal parenchymal lesions. The kidney measures 9.3 cm in maximum dimension. SPLEEN: Spleen is enlarged measuring 13.5 cm in maximum dimension. FREE FLUID: None. US/US abdomen complete IMPRESSION: 1. Cirrhotic appearing liver with splenomegaly. 2. Cholelithiasis with thickened gallbladder wall. 3. The portal venous system is patent with normal hepatopedal flow.
--- NOTE | ~2023-07-04 | US_ITS ---
Ultrasound paracentesis History: Ascites. Risks and benefits and possible complications were discussed with the patient and consent form was signed. A safe pocket of ascitic fluid was identified using ultrasound guidance, and the overlying skin was marked. The abdomen prepped and draped in sterile fashion. 1% lidocaine was used as a local anesthetic. Using ultrasound guidance, a 5 fr catheter was placed into the ascitic pocket. 2.0 liters of yellow fluid was removed passively. The catheter was then removed. A few electronics parts sales representative images from before and after the examination were obtained. The procedure was performed by Karlo Portillo PA-C and supervised by Dr. Panda. US/US paracentesis abd w/image Impression: Ultrasound-guided paracentesis as described above. No immediate complications
--- NOTE | ~2023-07-04 | US_ITS ---
EXAMINATION: US ABDOMEN COMPLETE CLINICAL INFORMATION: Weakness and ascites with question of portal vein thrombosis. COMPARISON: None available. TECHNIQUE: Real-time imaging of the abdominal viscera. Doppler imaging was performed. FINDINGS: PANCREAS: The visualized portions of the pancreas are unremarkable but a large portion of the gland, including the body and tail, is obscured by bowel gas. VASCULATURE: The portal venous system is patent with normal hepatopedal flow. The main hepatic artery is seen with normal waveform and velocity of 139 cm/s. The hepatic veins appear normal. The IVC appears normal. The splenic vein is visualized and is patent ABDOMINAL AORTA: The proximal, mid, and distal segments are normal in caliber. INFERIOR VENA CAVA: Visualized portions are normal. LIVER: The liver is cirrhotic in appearance with increased echogenicity and lobular border. No focal hepatic lesion. There is no intrahepatic biliary duct dilatation seen. GALLBLADDER: The gallbladder is poorly distended and evaluation is limited. The wall appears thickened at 5 mm. Gallstones are present. COMMON BILE DUCT: Is mildly dilated measuring 0 point cm in diameter. RIGHT KIDNEY: No hydronephrosis. No renal calculi or focal parenchymal lesions. The kidney measures 10.4 cm in maximum dimension. LEFT KIDNEY: No hydronephrosis. No renal calculi or focal parenchymal lesions. The kidney measures 9.3 cm in maximum dimension. SPLEEN: Spleen is enlarged measuring 13.5 cm in maximum dimension. FREE FLUID: None. US/US duplex arterial venous comp IMPRESSION: 1. Cirrhotic appearing liver with splenomegaly. 2. Cholelithiasis with thickened gallbladder wall. 3. The portal venous system is patent with normal hepatopedal flow.
--- NOTE | ~2023-07-04 | IR_ITS ---
CLINICAL HISTORY: End-stage renal disease. The patient presents to interventional radiology for placement of a tunneled central venous catheter for hemodialysis. PROCEDURES: 1. Real-time ultrasound-guided access into the right internal jugular vein after documentation of selected vessel patency, and permanent imaging storing in the patient record. 2. Placement of a 14.5 fr 23 cm tunneled, dual-lumen hemodialysis catheter. Clinician: Karlo Portillo PA-C MEDICATIONS: -Fentanyl 25 mcg, Lidocaine 1% 10 mL SQ. -Antibiotics: Ancef -For additional details, please see nursing flowsheet. COMPLICATIONS: None. ESTIMATED BLOOD LOSS: <5 ml SPECIMENS: None FLUOROSCOPY TIME: 1.3 min PROCEDURE NOTE: The procedure, risks, benefits, and alternatives were carefully explained to patient, and written informed consent was obtained. The patient was placed supine on the fluoroscopy table. A timeout was performed. The right neck and chest was prepped and draped in usual sterile fashion. Local anesthesia was administered to the access site with lidocaine. Under ultrasound guidance, the right internal jugular vein was accessed with a 5 Fr micropuncture set. A 0.035 in wire was advanced to the IVC to maintain access during the tunneling process. Next, subcutaneous lidocaine was administered to the chest. Using blunt dissection, a subcutaneous tunnel was created that connects from the upper chest to the venotomy site. The dialysis catheter was pulled through the tunnel. The tract in the vein was dilated and a peel-away sheath was advanced over the wire. The catheter was advanced through the sheath, which was subsequently peeled away. The catheter was tested, flushed, and sutured to the skin with its tip in the high right atrium. A permanent fluoroscopic image of the chest was saved to PACS. The catheter ports were packed with heparin per routine protocol. The patient was stable after the procedure and was transferred to the post anesthesia care unit. This procedure was performed under moderate sedation with a dedicated nurse and continuous monitoring of vital signs. FINDINGS: 1. Patent right internal jugular vein. 2. Placement of a tunneled, dual-lumen hemodialysis catheter as above. 3. Catheter flushes and aspirates very well with a 10 mL syringe. No pneumothorax. IR/IR cvc insert central tunnel IMPRESSION: Placement of a tunneled hemodialysis catheter in the right internal jugular vein. PLAN: -The catheter may be used immediately. This procedure was performed by Karlo Portlilo PA-C, and directly supervised by Dr. Leigh.
--- NOTE | ~2023-07-04 | US_ITS ---
Ultrasound paracentesis History: Ascites. Concern for SBP Risks and benefits and possible complications were discussed with the patient and consent form was signed. A safe pocket of ascitic fluid was identified using ultrasound guidance, and the overlying skin was marked. The abdomen prepped and draped in sterile fashion. 1% lidocaine was used as a local anesthetic. Using ultrasound guidance, a 22-gauge spinal needle was placed into the ascitic pocket. 50 mL of serous fluid was aspirated and sent for analysis. A few textile designs sales representative images from before and after the examination were obtained. The procedure was performed by Karlo Portillo PA-C and supervised by Dr. Panda. US/US paracentesis abd w/image Impression: Ultrasound-guided diagnostic paracentesis as described above. No immediate complications
--- NOTE | ~2023-07-04 | CT_ITS ---
EXAMINATION: CT ABDOMEN AND PELVIS WITHOUT CONTRAST CLINICAL INFORMATION: Acute anemia with question of hemoperitoneum COMPARISON: Paracentesis 07/06/2023, MRCP 07/05/2023, CT abdomen pelvis 06/15/2023 TECHNIQUE: Multidetector volumetric imaging was performed from the superior aspect of the liver through the pubic symphysis. Sagittal and coronal reformatted images were obtained on the technologist's workstation. This CT examination was performed using dose optimization techniques as appropriate, variously including the following: *Automated exposure control *Adjustment of mA and/or kV according to patient size (this includes techniques or standardized protocols for targeted exams where dose is matched to indication/reason for exam; i.e. extremities or head) *Use of iterative reconstruction technique DLP: 599 mGy-cm FINDINGS: LUNG BASES: The visualized lung bases are unremarkable with some mild dependent atelectasis.. LIVER, GALLBLADDER, AND BILIARY TREE: A large volume of ascites is present significantly larger when compared with the prior CT from 06/15/2023. A large blood clot is seen dependently in the peritoneal cavity measuring 8.5 x 3.7 x 10.9 cm (3:28). Liver has a nodular appearance consistent with cirrhosis. No biliary ductal dilatation or hepatic masses are seen.. The gallbladder contains multiple small stones without obvious pericholecystic inflammatory changes. PANCREAS: Unremarkable. SPLEEN: Unremarkable. ADRENAL GLANDS: Unremarkable. KIDNEYS AND URETERS: The kidneys are normal in size, shape, and attenuation. No hydronephrosis, hydroureter, or calculi seen. No perinephric stranding. BLADDER: Yao catheter is present in the bladder which is empty. GASTROINTESTINAL TRACT: A small hiatal hernia is present. No bowel obstruction.. ABDOMINAL WALL: No significant hernia is appreciated. LYMPH NODES: Normal. VASCULAR: Calcific atherosclerotic changes are present in the aorta and iliofemoral vessels. There is no evidence of an abdominal aortic aneurysm. PELVIC VISCERA: Unremarkable. OSSEOUS STRUCTURES: Unremarkable. CT/CT abdomen pelvis wo IV con IMPRESSION: Increasing ascites with a large dependent blood clot within the ascites. Again seen is a cirrhotic liver, small hiatal hernia and cholelithiasis. Fleischner guidelines were followed.
--- NOTE | ~2023-07-04 | US_ITS ---
Ultrasound paracentesis History: Ascites. Risks and benefits and possible complications were discussed with the patient and consent form was signed. A safe pocket of ascitic fluid was identified using ultrasound guidance, and the overlying skin was marked. The abdomen prepped and draped in sterile fashion. 1% lidocaine was used as a local anesthetic. Using ultrasound guidance, a 5 fr catheter was placed into the ascitic pocket. 5.0 liters of non-clotting, blood tinged fluid was removed passively. The catheter was then removed. A few inventory representative images from before and after the examination were obtained. The procedure was performed by Karlo Portillo PA-C and supervised by Dr. Panda. US/US paracentesis abd w/image Impression: Ultrasound-guided paracentesis as described above. No immediate complications
--- NOTE | ~2023-07-04 | MR_ITS ---
EXAMINATION: MR ABDOMEN WITHOUT CONTRAST CLINICAL INFORMATION: Gallstones. Cirrhosis. Dilated common bile duct. COMPARISON: Abdominal ultrasound 07/04/2023 MRI abdomen 06/09/2023 TECHNIQUE: MR abdomen is performed without gadolinium contrast. MRCP was performed. FINDINGS: No pleural effusion. Cirrhotic liver has nodular surface contour. Hepatomegaly with the right hepatic lobe measuring 20.1 cm in sagittal dimension. Detection of liver lesions is limited by the lack of intravenous contrast. Gallbladder is not visualized. The common duct measures 6 mm at the paulina hepatis. MRCP images are essentially nondiagnostic. No definite intrahepatic or extrahepatic bile duct dilatation. No dilatation of the main pancreatic duct. Spleen is mildly enlarged and measures 13.2 cm in sagittal dimension. No adrenal mass. Kidneys are symmetric in size and enhance normally. No hydronephrosis. Normal caliber abdominal aorta. Inferior vena cava is decreased in caliber. No bulky abdominal adenopathy. Wet bowel pattern. No abnormal bowel dilatation. Large volume ascites is present with diffuse edema of the mesenteric fat. Anasarca. MR/MR MRCP IMPRESSION: Limited study due to the presence of large ascites and lack of intravenous contrast. Hepatic cirrhosis. Splenomegaly. No acute abnormality.
--- NOTE | 2023-07-04 11:10 | ED.GENADULT ---
HPI - General Adult General Chief complaint: General Medical Stated complaint: liver issue sent in by PCP Time Seen by Provider: 07/04/23 12:12 Source: patient Mode of arrival: ambulatory History of Present Illness HPI narrative: 63-year-old female who presents with increasing fatigue and weakness, discharged last week after being diagnosed with liver disease and failure associated with chronic alcohol use, states she has not had any further alcohol since her discharge, had a paracentesis on for 3.7 L, denies any shortness of breath/nausea/vomiting/abdominal pain does have occasional diarrhea otherwise denies any fever or chills or urine symptoms. Related Data Home Medications ?Medication ?Instructions ?Recorded ?Confirmed furosemide 20 mg tablet 20 mg PO DAILY 07/04/23 07/04/23 rifaximin 550 mg tablet 550 mg PO BID 07/04/23 07/04/23 Previous Rx's ?Medication ?Instructions ?Recorded folic acid 1 mg tablet 1 mg PO DAILY 30 days #30 tabs 06/21/23 lactulose 20 gram/30 mL oral 20 g (30 mL) PO DAILY 30 days #900 06/21/23 solution mL magnesium oxide 400 mg (241.3 mg 400 mg PO DAILY 300 days #300 tabs 06/21/23 magnesium) tablet metoprolol tartrate 25 mg tablet 12.5 mg (1/2 x 25 mg) PO BID 30 06/21/23 days #30 tabs midodrine 5 mg tablet 5 mg PO TID 30 days #90 tabs 06/21/23 omeprazole 40 mg capsule,delayed 40 mg PO DAILY@0630 30 days #30 06/21/23 release caps pentoxifylline 400 mg 400 mg PO DAILY 30 days #30 tabs 06/21/23 tablet,extended release spironolactone 25 mg tablet 25 mg PO BID@0900,1800 30 days #60 06/21/23 tabs thiamine mononitrate (vit B1) 100 100 mg PO DAILY 30 days #30 tabs 06/21/23 mg tablet Allergies Allergy/AdvReac Type Severity Reaction Status Date / Time codeine [CODEINE] Allergy Unknown NAUSEA Verified 07/04/23 11:13 Review of Systems Review of Systems: Pertinent positives and negatives as stated in HPI [facility] Past Medical History Source: nursing notes reviewed Medical History Hepatic encephalopathy Alcoholic hepatitis Acute kidney injury Thrombocytopenia Portal venous hypertension Abdominal ascites Hyperlipidemia GERD (gastroesophageal reflux disease) Hypertension Cirrhosis Alcohol abuse Surgical History Hx of section History of back surgery Hx of esophagogastroduodenoscopy Hx of colonoscopy Social History Social History Household Members: None Housing: Other Do you presently have visiting nurse or other home services: No Alcohol intake: former Patient Tobacco Use Status: Former Tobacco user Quit Date: 06/05/23 Tobacco use type: Cigarette Cigarette Packs Per Day: 1 Cigarettes Per Day: 20.0 Years Smoked: 40 Smoked in Last 30 Days: Yes Second Hand Smoke Exposure: No Use of substances other than those prescribed or required for medical reasons: No Advance Directives: No Advance Directives Information Provided: No Do you have a plan to hurt others: No Plan Patient : No service: No Physical Exam ED Vital Signs: Vital Signs - 24 hr 07/04/23 11:09 07/04/23 13:37 07/04/23 13:51 Temperature 97.9 F Pulse Rate 125 H 100 83 Respiratory Rate 20 13 15 Blood Pressure 125/63 126/73 Pulse Oximetry 99 98 96 Oxygen Delivery Method Room Air Room Air Room Air 07/04/23 16:43 Temperature 98.4 F Pulse Rate 108 H Respiratory Rate 15 Blood Pressure 112/77 Pulse Oximetry 98 Oxygen Delivery Method Room Air BMI result Body Mass Index 22.1 VITAL SIGNS: Reviewed. GENERAL: Well developed, well nourished, in no acute distress. HEAD: Normocephalic/atraumatic EYES: PERRLA, EOMI, scleral icterus EARS: Ext canals without abnormality NOSE: Nares patent bilateral OROPHARYNX: no oral lesions noted, posterior pharynx clear NECK: Supple, no adenopathy LUNGS: Normal breath sounds. No adventitious sounds or accessory muscle use. SpO2<99> CARDIOVASCULAR: Regular rate and rhythm without noted murmurs, no JVD or lower extremity edema. ABDOMEN: Soft, non-tender, non-distended with bowel sounds. MUSCULOSKELETAL: No tenderness, deformities, or effusions noted on gross inspection. EXTREMITIES: No cyanosis, clubbing or edema. SKIN: Inspection of the skin reveals no rashes, ++jaundice NEUROLOGIC: Alert and oriented x 4. Strength and sensation to light touch were grossly intact x 4. Course Course Course Narrative: RME performed by Debbie Bui PA-C. Patient is a 63 year old assigned female at presenting to the emergency department with increased weakness. Patient has a history of alcoholic cirrhosis and had a recent paracentesis. Detailed physical exam and review of systems are deferred to the community outreach advocate. Labs ordered. Patient placed back in the waiting room pending room availability and results. Medications Administered Generic Name Dose Route Start Last Admin Trade Name Freq PRN Reason Stop Dose Admin Dextrose 250 mls @ 750 mls/hr 07/04/23 13:00 07/04/23 14:49 D10 IV Infused Q15M PRN Infusion per Hypoglycemia Standing Ord. Discontinued Medications Generic Name Dose Route Start Last Admin Trade Name Freq PRN Reason Stop Dose Admin Calcium Gluconate 2 gm in 100 mls @ 400 mls/hr 07/04/23 13:00 07/04/23 13:50 Calcium Gluconate IV 07/04/23 13:14 Infused ONCE ONE Infusion Insulin Human Regular 5 unit 07/04/23 13:00 07/04/23 13:46 Insulin Regular, Human 100 Unit/Ml 3 Ml Vial IVPUSH 07/04/23 13:01 5 unit ONCE ONE Administration Lidocaine HCl 5 ml 07/04/23 16:01 07/04/23 16:02 Lidocaine Hcl 1 % 20 Ml Vial SUBCUT 07/04/23 16:02 5 ml ONCE ONE Administration Medical Decision Making Medical Decision Making MDM Narrative: 63-year-old female with history and clinical presentation, DDX: Acute decompensated liver failure, concern for hepatorenal syndrome, acute on chronic kidney failure, no evidence to suggest hepatic encephalopathy, no clinical or historical findings to suggest SBP. I reviewed all investigations and patient's hematologic indices are chronically stable without leukocytosis, there is a stable normocytic anemia as well as thrombocytopenia. Coagulation studies are chronically stable and deranged with an INR -1.7. Chemistry indices are significantly worsened with hyperkalemia and an acute on chronic renal failure with significantly worsening bilirubin levels AST appears to be somewhat elevated alkaline phosphatase is stable and although ammonia level is mildly elevated patient has no encephalopathic findings. 1256: I discussed the case with Dr. Joshi, informed him of patient's worsening laboratory findings as well as associated renal findings, no recommendations at this time. 1259: I discussed case with Dr. Alvarez, nephrology, who has recommendation to withhold Lasix and spironolactone. 1332: Gastroenterology, Dr. Joshi, has recommended rule out of portal vein thrombosis as well as SBP. Patient will be admitted and given calcium gluconate/D50/insulin. 1454: Dr. Joshi saw patient at bedside and agrees that SBP unlikely. Repeat BMP pending due to reported hemolysis of blood tube of initial repeat. 1705: Urinalysis demonstrates nitrite and leukocyte esterase urine, will treat with Rocephin 2 g after obtaining lactic acid blood cultures. Differential Diagnosis Differential Diagnoses: The differential diagnosis associated with the presentation includes Please see the discussion above Admission/Observation Consideration of admission/observation: Escalation of care including admission/observation considered Please see the discussion above Consult Healthcare Provider Management of the patient was discussed with: Hospitalist and It Intern Please see the discussion above Lab Data MDM Lab Attestation statement: I reviewed the patient's lab results. Please see the discussion above 07/04/23 11:52 07/04/23 11:52 Labs: Lab Results 07/04/23 07/04/23 07/04/23 Range/Units 11:52 14:59 15:30 WBC 9.9 (4.8-10.8) X10*3/uL RBC 3.36 L D (4.20-5.50) X10*6/uL Hgb 11.8 L D (12.0-16.0) g/dl Hct 31.5 L D (37.0-47.0) % MCV 93.8 (80.0-98.0) fL MCH 35.1 H (27.0-33.0) pg MCHC 37.5 H (31.0-35.0) g/dl RDW 21.4 H (11.0-16.0) % Plt Count 121 L D (160-400) X10*3/uL MPV 11.6 (9.4-12.3) fL Immature Gran % (Auto) 1.3 H (0.0-0.4) % Neut % (Auto) 80.6 H (45-73) % Lymph % (Auto) 6.1 L (20-40) % Cocke % (Auto) 10.7 (2-11) % Eos % (Auto) 0.7 (0-4) % Baso % (Auto) 0.6 (0-2) % Lymph # (Auto) 0.6 L (1.2-4.9) X10*3/uL Cocke # (Auto) 1.1 (0.1-1.2) X10*3/uL Eos # (Auto) 0.1 (0.0-0.4) X10*3/uL Baso # (Auto) 0.1 (0.0-0.2) X10*3/uL Abs Immat Gran (auto) 0.13 H (0.00-0.03) X10*3/uL Absolute Neuts (auto) 8.0 (2.0-8.3) x10*3/uL Absolute Nucleated RBC 0.000 (0.0-0.012) X10*3/uL Nucleated RBC % (auto) 0.0 (0.0-0.2) /100WBC PT 20.5 H (11.1-13.3) SEC INR 1.7 H (0.9-1.1) APTT 52.5 H (26.0-36.8) SEC Sodium 132 L (135-145) mmol/L Potassium 5.8 H D (3.3-5.1) mmol/L Chloride 103 (96-108) mmol/L Carbon Dioxide 13 L (22-29) mmol/L Anion Gap 22 H (12-20) BUN 51 H (9-16) mg/dL Creatinine 2.50 H (0.5-1.4) mg/dL Estim Creat Clear Calc 18.8 Estimated GFR 19 Random Glucose 117 H (60-115) mg/dL Calcium 9.5 D (8.4-10.2) mg/dL Magnesium 2.1 (1.6-2.6) mg/dL Total Bilirubin 37.6 H (0.0-1.0) mg/dL Direct Bilirubin 24.8 H (0.0-0.5) mg/dL AST 107 H (5-31) U/L ALT 34 H (0-31) U/L Alkaline Phosphatase 258 H (39-117) U/L Ammonia 84 H 113 H (13-55) umol/L Total Protein 7.0 (6.5-8.0) g/dL Albumin 3.6 (3.5-5.0) g/dL Urine Color Urine Appearance Urine pH (5.0-9.0) Ur Specific Gilman (1.005-1.025) Urine Protein (Neg-Trace) mg/dL Urine Glucose (UA) (Negative) mg/dL Urine Ketones (Negative) mg/dL Urine Blood (Negative) Urine Nitrite (Negative) Ur Leukocyte Esterase (Negative) Peritoneal WBC 0.047 X10*3/uL Peritoneal RBC < 0.002 X10*6/uL Influenza Type A (PCR) NEGATIVE (Negative) Influenza Type B (PCR) NEGATIVE (Negative) RSV RNA Qual (PCR) NEGATIVE (Negative) SARS-CoV-2 RNA (RT-PCR) NEGATIVE (Negative) 07/04/23 Range/Units 16:50 WBC (4.8-10.8) X10*3/uL RBC (4.20-5.50) X10*6/uL Hgb (12.0-16.0) g/dl Hct (37.0-47.0) % MCV (80.0-98.0) fL MCH (27.0-33.0) pg MCHC (31.0-35.0) g/dl RDW (11.0-16.0) % Plt Count (160-400) X10*3/uL MPV (9.4-12.3) fL Immature Gran % (Auto) (0.0-0.4) % Neut % (Auto) (45-73) % Lymph % (Auto) (20-40) % Cocke % (Auto) (2-11) % Eos % (Auto) (0-4) % Baso % (Auto) (0-2) % Lymph # (Auto) (1.2-4.9) X10*3/uL Cocke # (Auto) (0.1-1.2) X10*3/uL Eos # (Auto) (0.0-0.4) X10*3/uL Baso # (Auto) (0.0-0.2) X10*3/uL Abs Immat Gran (auto) (0.00-0.03) X10*3/uL Absolute Neuts (auto) (2.0-8.3) x10*3/uL Absolute Nucleated RBC (0.0-0.012) X10*3/uL Nucleated RBC % (auto) (0.0-0.2) /100WBC PT (11.1-13.3) SEC INR (0.9-1.1) APTT (26.0-36.8) SEC Sodium (135-145) mmol/L Potassium (3.3-5.1) mmol/L Chloride (96-108) mmol/L Carbon Dioxide (22-29) mmol/L Anion Gap (12-20) BUN (9-16) mg/dL Creatinine (0.5-1.4) mg/dL Estim Creat Clear Calc Estimated GFR Random Glucose (60-115) mg/dL Calcium (8.4-10.2) mg/dL Magnesium (1.6-2.6) mg/dL Total Bilirubin (0.0-1.0) mg/dL Direct Bilirubin (0.0-0.5) mg/dL AST (5-31) U/L ALT (0-31) U/L Alkaline Phosphatase (39-117) U/L Ammonia (13-55) umol/L Total Protein (6.5-8.0) g/dL Albumin (3.5-5.0) g/dL Urine Color Dark Yellow Urine Appearance Cloudy Urine pH 5.5 (5.0-9.0) Ur Specific Gilman 1.020 (1.005-1.025) Urine Protein 30 (1+) H (Neg-Trace) mg/dL Urine Glucose (UA) Negative (Negative) mg/dL Urine Ketones Negative (Negative) mg/dL Urine Blood Negative (Negative) Urine Nitrite Positive H (Negative) Ur Leukocyte Esterase Small (1+) H (Negative) Peritoneal WBC X10*3/uL Peritoneal RBC X10*6/uL Influenza Type A (PCR) (Negative) Influenza Type B (PCR) (Negative) RSV RNA Qual (PCR) (Negative) SARS-CoV-2 RNA (RT-PCR) (Negative) Radiology Impression Discussion of test interpretation with radiology: I have reviewed the radiologist's reading. Radiologist Impression: Please see the discussion above External Record Review External record reviewed: Inpatient record, Outpatient record, Prior outpatient labs and Prior outpatient radiology Chronic Conditions Liver disease Social Determinants Patient?s care significantly limited by Social Determinants of Health including: Alcoholism and drug addiction in family Critical Care Time Critical Care Time Critical Care Time: Yes Total Critical Care Time: 90 Attestation: I personally attest to this time spent taking care of the patient. Discharge Plan Discharge Clinical Impression: Hepatorenal syndrome, Acute on chronic kidney failure, Hyperkalemia, Hyperbilirubinemia, Liver cirrhosis Patient Disposition: Admitted As Inpatient Print Language: Martiniquais
[2023-07-04 11:59] LABS: MANUAL DIFF FLAG NO
[2023-07-04 12:05] LABS: Basophils Absolute Auto 0.1 X10*3/uL (0.0-0.2); Basophils Percent Auto 0.6 % (0-2); Eosinophils Absolute Auto 0.1 X10*3/uL (0.0-0.4); Eosinophils Percent Auto 0.7 % (0-4); Hematocrit 31.5 % (37.0-47.0); Hemoglobin 11.8 g/dl (12.0-16.0); Imm Gran Abs Auto 0.13 X10*3/uL (0.00-0.03); Imm Gran Pct Auto 1.3 % (0.0-0.4); Lymphocytes Absolute Auto 0.6 X10*3/uL (1.2-4.9); Lymphocytes Percent Auto 6.1 % (20-40); Mean Corpuscular HGB Conc 37.5 g/dl (31.0-35.0); Mean Corpuscular Hemoglobin 35.1 pg (27.0-33.0); Mean Corpuscular Volume 93.8 fL (80.0-98.0); Mean Platelet Volume 11.6 fL (9.4-12.3); Monocytes Absolute Auto 1.1 X10*3/uL (0.1-1.2); Monocytes Percent Auto 10.7 % (2-11); Neutrophils Percent Auto 80.6 % (45-73); Platelet Count 121 X10*3/uL (160-400); Red Blood Count 3.36 X10*6/uL (4.20-5.50); Red Cell Distribution Width 21.4 % (11.0-16.0); White Blood Count 9.9 X10*3/uL (4.8-10.8)
[2023-07-04 12:21] LABS: Alanine Aminotransferase 34 U/L (0-31); Albumin Level 3.6 g/dL (3.5-5.0); Alkaline Phosphatase 258 U/L (39-117); Anion Gap 22 (12-20); Aspartate Amino Transferase 107 U/L (5-31); Blood Urea Nitrogen 51 mg/dL (9-16); Calcium 9.5 mg/dL (8.4-10.2); Carbon Dioxide 13 mmol/L (22-29); Chloride 103 mmol/L (96-108); Creatinine Clr Calc Pharmacy 18.8; Estimated Glomerular Filt Rate 19; Glucose Random 117 mg/dL (60-115); Magnesium 2.1 mg/dL (1.6-2.6); Potassium 5.8 mmol/L (3.3-5.1); Sodium 132 mmol/L (135-145)
[2023-07-04 12:22] LABS: Ammonia 84 umol/L (13-55)
[2023-07-04 12:25] LABS: INTERNATIONAL NORM RATIO 1.7 (0.9-1.1); Partial Thromboplastin Time 52.5 SEC (26.0-36.8); Prothrombin Time 20.5 SEC (11.1-13.3)
[2023-07-04 12:28] LABS: Bilirubin Total 37.6 mg/dL (0.0-1.0)
[2023-07-04 12:37] LABS: Influenza A PCR NEGATIVE (Negative); Influenza B PCR NEGATIVE (Negative); Resp Syncy Virus RNA Qual PCR NEGATIVE (Negative); SARS COV2 PCR INHOUSE NEGATIVE (Negative)
--- NOTE | 2023-07-04 13:21 | ECG_ITS ---
Test Reason : HIGH POTTISUM Blood Pressure : / mmHG Vent. Rate : 080 BPM Atrial Rate : 080 BPM P-R Int : 120 ms QRS Dur : 080 ms QT Int : 384 ms P-R-T Axes : 072 025 057 degrees QTc Int : 442 ms Normal sinus rhythm Right atrial enlargement Borderline ECG When compared with ECG of 18-JUL-2017 14:35, Nonspecific T wave abnormality now evident in Inferior leads T wave amplitude has decreased in Anterolateral leads QT has lengthened Referred By: Rajani Rivera Electronically Signed By:Gagan Garcia
[2023-07-04] MEDS: Calcium Gluconate/NaCl,Iso-Osm 2 GM/100 ML PLAST..BAG IV (13:38)
[2023-07-04] MEDS: Insulin Regular, Human 100 UNIT/ML 3 ML VIAL IVPUSH (13:46)
[2023-07-04] MEDS: Dextrose 10 % 250 ML 750 ML IV (13:47)
[2023-07-04 14:18] LABS: Bilirubin Direct 24.8 mg/dL (0.0-0.5)
--- NOTE | 2023-07-04 15:17 | PM.EVENT ---
Event Note Date of Service: 07/04/23 Event Note: US diagnostic paracentesis performed. 60 cc serous fluid aspirated and sent for analysis. No immediate complications Karlo HUERTA Interventional Radiology Time Spent With Patient Time: Total time managing care of this patient today ____ minutes.
--- NOTE | 2023-07-04 15:21 | PC.NURSE ---
PT TRANSPORTED TO US FOR PARACENTESIS. PT HAS DENIED ANY PAIN SINCE ARRIVAL TO FACILITY, ENDORSES WORSENING WEAKNESS, REDUCED APETITE AND INTAKE SINCE DISCHARGE FROM HERE 10 DAYS AGO. #20 IN LFA.
[2023-07-04] MEDS: Lidocaine HCl 1 % 20 ML VIAL 5 ML SUBCUT (16:02)
--- NOTE | 2023-07-04 16:31 | PHA.MEDREC ---
Pharmacy Consult ? Medication Reconciliation Pharmacy has completed the medication reconciliation. Patient does not know medications names. Reports she is taking the medications that were prescribed on discharge on last admission. Utilized discahrge summary. Rita BhardwajD
[2023-07-04 16:49] LABS: Ammonia 113 umol/L (13-55)
[2023-07-04 16:50] LABS: WBC Peritoneal Fluid 0.047 X10*3/uL
[2023-07-04 16:52] LABS: RBC Peritoneal Fluid < 0.002 X10*6/uL
--- NOTE | 2023-07-04 16:53 | MHC.EDTECH ---
THIS PCT ASSUMED CARE OF PATIENT AT 1500 ,VITALS TAKEN ,EKG DONE AND WAS READ BY PROVIDER ,BLOOD DRAWN AND URINE SAMPLE COLLECTED AND SENT TO LAB ,PATIENT BELONGING LIST DONE ,PATIENT COMFORTABLE AT THIS TIME ,AND IS HOOKED UP TO CONTINUOUS CONVEYOR SCREEN DRIER ,PATIENT WATCHING TELEVISION ,CALL BRISCOE WITHIN PATIENT REACH .
[2023-07-04 16:57] LABS: Appearance Urine Cloudy; Color Urine Dark Yellow; Glucose Urine UA Negative (Negative); Leukocyte Esterase Urine Small (1+) (Negative); Nitrite Urine Positive (Negative); PH 5.5 (5.0-9.0); UMIC TRIGGER UACC YES; Urine Blood Negative (Negative); Urine Ketones Negative (Negative); Urine Protein 30 (1+) mg/dL (Neg-Trace)
[2023-07-04 17:09] LABS: Bacteria Urine None Seen (None Seen); Hyaline Casts Urine >20 /LPF (0-2); UACC Culture Trigger YES; WBC Urine 0-5 /HPF (0-5)
[2023-07-04 17:29] LABS: BF Shift QC OK YES; Lymphocyte Peritoneal Fl 18 %; Monocytes Peritoneal Fl 4 %; Neutrophils Peritoneal Fluid 3 %
[2023-07-04 17:47] LABS: Anion Gap 20 (12-20); Blood Urea Nitrogen 51 mg/dL (9-16); Calcium 9.7 mg/dL (8.4-10.2); Carbon Dioxide 12 mmol/L (22-29); Chloride 105 mmol/L (96-108); Creatinine Clr Calc Pharmacy 16.2; Estimated Glomerular Filt Rate 16; Glucose Random 87 mg/dL (60-115); Potassium 4.2 mmol/L (3.3-5.1); Sodium 133 mmol/L (135-145)
[2023-07-04 17:48] LABS: Alanine Aminotransferase 23 U/L (0-31); Albumin Level 3.2 g/dL (3.5-5.0); Alkaline Phosphatase 233 U/L (39-117); Aspartate Amino Transferase 95 U/L (5-31); Total Protein 5.9 g/dL (6.5-8.0)
--- NOTE | 2023-07-04 18:03 | PM.EVENT ---
Event Note Date of Service: 07/04/23 Event Note: GI consult-Full note dictated Imp: Worsening LFT's and renal function in 63 yo female with EtOH-induced cirrhosis and sobriety since her hospitalization in May. She had been on prednisolone temporarily in May for EtOH-induced hepatitis but that was stopped when she had some limited GI bleeding. She has been home for about a week and returns due to feeling poorly and more jaundice. This may reflect worsening cholestasis and further liver failure due to the ongoing EtOH-induced hepatitis. She does not have any definitive encephalopathy, her ascites is negative for SBP, the U/S is negative for portal vein thrombosis, and there has been no GI bleeding. Her PT/INR is stable. Rec: Supportive care. Nephrology consult. F/U labs in AM. Trial of prednisolone again. She is not a transplant candidate due to her active drinking prior to the May admission. Thanks Time Spent With Patient Time: Total time managing care of this patient today ____ minutes.
[2023-07-04] MEDS: cefTRIAXone sodium 2 GM in 0.9 % Sodium Chloride 50 ML IV (18:10)
--- NOTE | 2023-07-04 18:12 | P.HPHOSP_ITS ---
History of Present Illness Date of Service: 07/04/23 Attending physician on admission: Erickson Sands Chief Complaint: weakness, fatigue 63-year-old female with history of alcoholic cirrhosis complicated by portal vein hypertension and ascites, alcohol use disorder, gout, hypertension, GERD presented to the ED earlier today for evaluation of weakness and fatigue. Recently had prolonged hospitalization from 06/05-06/20 for acute hepatic encephalopathy, CELESTINE, acute alcoholic hepatitis initially treated with prednisone but transition to pentoxifylline due to GI bleed. She was discharged to home. She continues to abstain from alcohol. Last alcoholic beverage was a small amount on Tuesday. She did undergo therapeutic paracentesis 5 days ago draining 3.7 L fluid. Denies any fevers, chills, abdominal pain, nausea, vomiting, diarrhea, shortness of breath, cough, lightheadedness, chest pain. She does report anorexia and has only been tolerating small amounts of clear liquids and ice cream. On arrival, intermittently tachycardic to 125, no hypotension, vitals otherwise stable. No leukocytosis. H/H 11.8/31.5%. Platelets 121. Creatinine 2.90, baseline 1.4. BUN 51. Sodium 132. Initial potassium 5.8 treated with IV insulin, D50, and Lokelma was improvement to 4.2. Bicarb remains low at 12, VBG pending. Lactic acid pending. Total bilirubin 34.0, direct bilirubin 94.8. AST 95, ALT 23, alkaline phosphatase 233. Ammonia 113, however patient alert and oriented x4. Urinalysis with 1+ leukocytes, positive nitrites, scant urinary sediment, negative bacteria. Patient denies any urinary symptoms. Diagnostic paracentesis performed which does not indicate any SBP. Negative for COVID-19, RSV, influenza. Abdominal ultrasound shows cirrhotic appearing liver with splenomegaly as well as cholelithiasis with thickened gallbladder wall and patent portal vein system with normal hepatopetal flow. Pt will be admitted for further management of acute decompensated hepatic cirrhosis. Review of Systems 2 Review of Systems: General: +malaise, +general weakness. No fevers, unintentional weight loss HEENT: No blurred vision, diplopia. No sore throat, nasal congestion, rhinorrhea, sinus pain, ear pain Cardiovascular: No chest pain, palpitations, or leg edema Respiratory: No shortness of breath, wheezing, cough GI: +anorexia. No abdominal pain, nausea, vomiting, diarrhea, constipation, melena, hematochezia : No dysuria, hematuria, increased urinary frequency, decreased urinary output MSK: No myalgia, back pain Neuro: No headaches, weakness, paresthesias Skin: No rashes or lesions [facility] Medical History Hepatic encephalopathy Alcoholic hepatitis Acute kidney injury Thrombocytopenia Portal venous hypertension Abdominal ascites Hyperlipidemia GERD (gastroesophageal reflux disease) Hypertension Cirrhosis Alcohol abuse Surgical History Hx of section History of back surgery Hx of esophagogastroduodenoscopy Hx of colonoscopy Social History Household Members: None Housing: Other Do you presently have visiting nurse or other home services: No Alcohol intake: former Patient Tobacco Use Status: Former Tobacco user Quit Date: 06/05/23 Tobacco use type: Cigarette Cigarette Packs Per Day: 1 Cigarettes Per Day: 20.0 Years Smoked: 40 Smoked in Last 30 Days: Yes Second Hand Smoke Exposure: No Use of substances other than those prescribed or required for medical reasons: No Advance Directives: No Advance Directives Information Provided: No Do you have a plan to hurt others: No Plan Patient : No service: No Meds Allergies Allergy/AdvReac Type Severity Reaction Status Date / Time codeine [CODEINE] Allergy Unknown NAUSEA Verified 07/04/23 11:13 Active Medications: Current Medications Acetaminophen (Acetaminophen 325 Mg Tablet) 650 mg PO Q6H PRN PRN Reason: Pain, Mild (Pain Scale 1-3) Dextrose (D10) 250 mls @ 750 mls/hr IV Q15M PRN PRN Reason: per Hypoglycemia Standing Ord. Last Infusion: 07/04/23 14:49 Dose: Infused Ondansetron HCl (Ondansetron Hcl 4 Mg/2 Ml Vial) 4 mg IVPUSH Q8H PRN PRN Reason: Nausea and Vomiting Senna (Sennosides 8.6 Mg Tablet) 17.2 mg PO BEDTIME PRN PRN Reason: Constipation Sodium Chloride (0.9 % Sodium Chloride Flush 3 Ml Syringe) 3 ml IVFLUSH QSHIFranciscan Children's Medications ?Medication ?Instructions ?Recorded ?Confirmed ?Last Taken ?Type furosemide 20 mg tablet 20 mg PO DAILY 07/04/23 07/04/23 07/03/23 History rifaximin 550 mg tablet 550 mg PO BID 07/04/23 07/04/23 07/03/23 History Physical Exam 2 Vital Signs and Narrative: Vital Signs: Last Vital Signs Temp 97.9 F 07/04/23 17:49 Pulse 83 07/04/23 17:49 Resp 16 07/04/23 17:49 BP 125/62 07/04/23 17:49 Pulse Ox 98 07/04/23 17:49 O2 Del Method Room Air 07/04/23 17:49 BMI result Body Mass Index 22.1 Constitutional - Awake and Alert, No apparent distress Eyes - PERRLA, EOMI, scleral icterus Cardiovascular - S1S2, RRR, No edema Respiratory - Normal lung expansion, Normal respiratory effort, No respiratory distress, CTA bilaterally Gastrointestinal - NT / ND; +BS; No rebound or guarding Extremities - no calf tenderness bilaterally, no swelling Skin - Warm/Dry, jaundice Neurological - Alert & oriented x4, CN II-XII in tact, 5/5 strength BUE and BLE. Tremulous but no asterixis Psychological - Appropriate affect Results Labs 07/04/23 11:52 07/04/23 16:50 Labs: Laboratory Results - last 24 hr 07/04/23 07/04/23 07/04/23 11:52 14:59 15:30 MCV 93.8 MCH 35.1 H MCHC 37.5 H RDW 21.4 H Plt Count 121 L D MPV 11.6 Immature Gran % (Auto) 1.3 H Neut % (Auto) 80.6 H Lymph % (Auto) 6.1 L [place] % (Auto) 10.7 Eos % (Auto) 0.7 Baso % (Auto) 0.6 Lymph # (Auto) 0.6 L [place] # (Auto) 1.1 Eos # (Auto) 0.1 Baso # (Auto) 0.1 Abs Immat Gran (auto) 0.13 H Absolute Neuts (auto) 8.0 Absolute Nucleated RBC 0.000 Nucleated RBC % (auto) 0.0 PT 20.5 H INR 1.7 H APTT 52.5 H Anion Gap 22 H Estim Creat Clear Calc 18.8 Estimated GFR 19 Random Glucose 117 H Calcium 9.5 D Magnesium 2.1 Total Bilirubin 37.6 H Direct Bilirubin 24.8 H AST 107 H ALT 34 H Alkaline Phosphatase 258 H Ammonia 84 H 113 H Total Protein 7.0 Albumin 3.6 Urine Color Urine Appearance Urine pH Ur Specific [place] Urine Protein Urine Glucose (UA) Urine Ketones Urine Blood Urine Nitrite Ur Leukocyte Esterase Urine RBC Urine WBC Ur Squamous Epith Cells Urine Bacteria Hyaline Casts Peritoneal WBC 0.047 Peritoneal RBC < 0.002 Periton Neutrophils 3 Periton Lymphocytes 18 Peritoneal Monocytes 4 Influenza Type A (PCR) NEGATIVE Influenza Type B (PCR) NEGATIVE RSV RNA Qual (PCR) NEGATIVE SARS-CoV-2 RNA (RT-PCR) NEGATIVE 07/04/23 16:50 MCV MCH MCHC RDW Plt Count MPV Immature Gran % (Auto) Neut % (Auto) Lymph % (Auto) [place] % (Auto) Eos % (Auto) Baso % (Auto) Lymph # (Auto) [place] # (Auto) Eos # (Auto) Baso # (Auto) Abs Immat Gran (auto) Absolute Neuts (auto) Absolute Nucleated RBC Nucleated RBC % (auto) PT INR APTT Anion Gap 20 Estim Creat Clear Calc 16.2 Estimated GFR 16 Random Glucose 87 Calcium 9.7 Magnesium Total Bilirubin 34.0 H Direct Bilirubin AST 95 H ALT 23 Alkaline Phosphatase 233 H Ammonia Total Protein 5.9 L Albumin 3.2 L Urine Color Dark Yellow Urine Appearance Cloudy Urine pH 5.5 Ur Specific [place] 1.020 Urine Protein 30 (1+) H Urine Glucose (UA) Negative Urine Ketones Negative Urine Blood Negative Urine Nitrite Positive H Ur Leukocyte Esterase Small (1+) H Urine RBC 6-10 H Urine WBC 0-5 Ur Squamous Epith Cells 11-20 Urine Bacteria None Seen Hyaline Casts >20 Peritoneal WBC Peritoneal RBC Periton Neutrophils Periton Lymphocytes Peritoneal Monocytes Influenza Type A (PCR) Influenza Type B (PCR) RSV RNA Qual (PCR) SARS-CoV-2 RNA (RT-PCR) Imaging Radiologist's Impressions: Impressions Abdomen Ultrasound 07/04/23 15:30 IMPRESSION: 1. Cirrhotic appearing liver with splenomegaly. 2. Cholelithiasis with thickened gallbladder wall. 3. The portal venous system is patent with normal hepatopedal flow. Doppler Study Ultrasound 07/04/23 15:30 IMPRESSION: 1. Cirrhotic appearing liver with splenomegaly. 2. Cholelithiasis with thickened gallbladder wall. 3. The portal venous system is patent with normal hepatopedal flow. Assessment and Plan (1) Liver cirrhosis: Status: Acute (2) Hyperbilirubinemia: Status: Acute (3) Hyperkalemia: Status: Acute (4) Acute on chronic kidney failure: Status: Acute Plan 63-year-old female with history of alcoholic cirrhosis complicated by portal vein hypertension and ascites, alcohol use disorder, gout, hypertension, GERD admitted for further management acute decompensated hepatic cirrhosis with acute kidney injury. # acute kidney injury -? Hepatorenal syndrome -creatinine 2.9, baseline 1.4. BUN 51 -urine sodium, urine creatinine pending -will continue gentle IV fluid resuscitation -hold diuretics at this time -nephrology consult # acute metabolic acidosis -VBG peneding -hold on bicarb drip per nephrology -continue gentle ivf #Acute hyperkalemia -r/t above -in ED, treated with calcium gluconate, IV insulin, D50, Lokelma -K 5.8 --> 4.2 -follow lytes # acute decompensated hepatic cirrhosis complicated by ascites, portal vein hypertension -total bilirubin 34, direct bilirubin 24.8, AST 95, ALT 23. No recent alcohol use, doubt acute alcoholic hepatitis. No indication for steroids at this time -diagnostic paracentesis performed by IR does not indicate SBP -gastroenterology consult- per gi supportive care #Abnormal UA -UA positive for nitrites, leukocytes, scant urinary sediment. No bacteria. Patient is asymptomatic -hold on abx for now, await cultures # coagulopathy -INR 1.7, PT 20.5, consistent with baseline -related to cirrhosis # chronic normocytic anemia -likely related to chronic disease, H/H improved since last admission. Above transfusion threshold # chronic thrombocytopenia -related to cirrhosis # orthostatic hypotension -continue midodrine # alcohol use disorder -in early remission. Relapse on Tuesday without any further alcohol use DVT prophylaxis-SCPs Full code Patient requires inpatient stay at least 2 midnights for management of acute kidney injury likely in setting of hepatorenal syndrome/decompensated alcoholic cirrhosis requiring expert consultation, gentle IV fluid resuscitation, and close monitoring of renal function and electrolyte levels Quality Stroke Does the patient have a stroke diagnosis?: No VTE Prior VTE?: No VTE Risk Level:: Medical - moderate - high VTE Device Contraindication: N/A - Device Ordered VTE Drug Contraindication: Treatment Not Indicated
--- NOTE | 2023-07-04 18:12 | MHC.EDTECH ---
Patient 1800 rounding done ,vitals taken ,vbg drawn ,lactic acid and 2nd sets of blood culture .
[2023-07-04 18:23] LABS: Lactic Acid 1.3 mmol/L (0.5-2.0)
[2023-07-04 18:23] LABS: VBG Base Excess -8.2 mmol/L; VBG HCO3 12 mmol/L (22-26); VBG pCO2 16 mmHg; VBG pH 7.49 (7.32-7.43); VBG pO2 231 mmHg
[2023-07-04 18:25] LABS: Venous Blood Gas Refer to POC result
[2023-07-04 18:51] LABS: Creatinine Urine 167.86 mg/dL
--- NOTE | 2023-07-04 19:07 | MHC.EDTECH ---
PATIENT WAS SET UP WITH DINNER ,ATE 50 % OF MEAL AND DRANK 240 ML FLUIDS .
[2023-07-04] MEDS: prednisoLONE sodium phosphate 15 MG/5 ML SOLUTION 40 MG PO (20:05)
[2023-07-04] MEDS: 0.9 % Sodium Chloride 1,000 ML 80 ML IVCONT (20:08)
[2023-07-04] MEDS: Metoprolol Tartrate 12.5 MG HALFTAB PO (21:10)
[2023-07-04] MEDS: rifAXIMin 550 MG TABLET PO (21:10)
[2023-07-04] MEDS: diphenhydrAMINE HCL 25 MG CAPSULE PO (21:41)
--- NOTE | 2023-07-04 21:48 | PC.NURSE ---
pt's BP was 132/64, [address] Stephenson.
[2023-07-05 03:13] VITALS: BP 94/53; PULSE 59; RESP 16; TEMP 36.2; O2SAT 99
[2023-07-05] MEDS: 0.9 % Sodium Chloride 1,000 ML 80 ML IVCONT ×2 (04:24→16:05)
--- NOTE | 2023-07-05 05:17 | CONS_ITS ---
DATE OF SERVICE: 07/04/2023 REASON FOR CONSULTATION: Jaundice, alcohol-related liver disease. 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 The patient was admitted in May with a component of alcohol-induced hepatitis. She had been actively drinking up until that time. She was started on a course of prednisolone 40 mg daily on June 07 or so. She continued on this for at least several days, but eventually this was stopped due to a concern about some transient rectal bleeding. During that hospitalization, she did have some anorexia and was felt to have a component of encephalopathy. She also had ascites that was drained without sign of spontaneous bacterial peritonitis. Ammonia level was as high as 68. She was discharged on June 20. She had BUN 38, creatinine 1.46. She has a total bilirubin had stabilized over the preceding several days. Her AST was 48 with an ALT of 22, and the alkaline phosphatase 182. Since discharge from the hospital, she describes that she has been abstinent from all alcohol. She has not been on any prednisolone since the early part of her hospitalization in May. She has not been using any NSAIDs. Due to increasing fatigue and noticeable jaundice, she came back to the ER for re-evaluation today and was found to have a total bilirubin that was now elevated at 37.6 compared to 16.4 on June 20. The direct bilirubin was 24.8 today. She also had an elevated BUN and creatinine of 51 and 2.5 respectively. She denies any signs of GI bleeding. The stools have been brown. She has had nausea but no vomiting. She did have a paracentesis last week as an outpatient that was negative for SBP. She does feel that her abdominal girth has increased a little bit since then as well. She denies any abdominal pain or fevers. MEDICATIONS: Her present medications include acetaminophen p.r.n., folic acid, insulin, lactulose, metoprolol, midodrine, omeprazole, Zofran, pentoxifylline 40 mg daily, rifaximin 550 mg b.i.d., Senokot, and thiamine. PAST MEDICAL HISTORY: Advanced alcohol-related liver disease with associated ascites and jaundice. Insulin-dependent diabetes noted. History of hepatic encephalopathy. Renal insufficiency. Hyperlipidemia. Gastroesophageal reflux. Hypertension. Back surgery. SOCIAL HISTORY: Positive use of alcohol up until her May admission. She does not smoke. REVIEW OF SYSTEMS: CONSTITUTIONAL: She has been feeling poorly at home with fatigue and nausea. PULMONARY: No coughing nor hemoptysis. GI: As above. CARDIAC: No chest pain. PHYSICAL EXAMINATION: GENERAL: The patient is a deeply jaundiced female. She is alert and oriented to location, year, and person. Icteric sclerae. Moist mucous membranes. CARDIAC: Normal S1, S2. ABDOMEN: Soft and distended with ascites. There is no focal tenderness nor mass. EXTREMITIES: Without edema. LABORATORIES: Sodium 133, potassium 4.2, chloride 105, CO2 12, BUN 51, creatinine 2.9. Total bilirubin was 37.6 with a direct bilirubin of 24.8. AST 95, ALT 23, alkaline phosphatase 233, albumin 3.2. Her abdominal ultrasound with Doppler studies was negative for any sign of portal vein thrombosis. There was ascites. A small amount was drained by Radiology and the cell count with differential was negative for spontaneous bacterial peritonitis. PT was 20.5 with INR 1.7. PT had been 21.6 with INR 1.8 on June 20. Her total bilirubin had been 16.4 on June 20 compared to 37.6 on this admission. Ammonia level today is 84. Remainder of abdominal ultrasound today revealed a liver consistent with cirrhosis, but no evidence of any biliary obstruction. She does have gallstones but no definitive evidence of cholecystitis. Of note, the ultrasound does describe that the common bile duct is mildly dilated but does not describe any choledocholithiasis. IMPRESSION: Given the patient's history and current presentation, I suspect this is a continuation of her significant cholestasis in relation to her recent history of alcohol-induced hepatitis. At this point, given the significant worsening of her jaundice and further elevation of the liver enzymes compared to the discharge laboratories from about 10 days ago, I would recommend re-attempted treatment with prednisolone starting at 40 mg daily for 1 week and then a 10 mg per week taper. I would continue her pentoxifylline as well. Given the severity of her liver disease, I think it would be reasonable to be aggressive medically. At this point, she is not a candidate for liver transplant given her active alcohol abuse up until the May admission. We will also consult Nephrology to help manage her renal insufficiency in the midst of her worsening liver disease. Followup laboratories have been ordered for the morning. Given her worsening and significant jaundice, and the ultrasound showing a mildly dilated common bile duct as well as gallstones in the gallbladder, I would recommend an MRCP for further evaluation as well to definitively exclude any component of biliary obstruction from a common duct stone that would obviously affect her management. If the MRCP is negative for any sign of common duct stones, I would then continue the prednisolone and see if things improve with that. Depending upon her clinical course with the jaundice, I may want to add a course of Ursodiol if the jaundice was to continue to worsen. Thank you for this consultation. MD GEREMIAS Mandel/RORY / [phone] [facility]
[2023-07-05] MEDS: Omeprazole 40 MG CAPSULE.DR PO (05:29)
[2023-07-05 05:57] LABS: MANUAL DIFF FLAG NO
[2023-07-05 06:18] LABS: Ammonia 65 umol/L (13-55)
[2023-07-05 06:29] LABS: Basophils Absolute Auto 0.1 X10*3/uL (0.0-0.2); Basophils Percent Auto 0.8 % (0-2); Eosinophils Percent Auto 0.2 % (0-4); Hematocrit 29.9 % (37.0-47.0); Hemoglobin 11.1 g/dl (12.0-16.0); Imm Gran Abs Auto 0.09 X10*3/uL (0.00-0.03); Imm Gran Pct Auto 1.4 % (0.0-0.4); Lymphocytes Absolute Auto 0.3 X10*3/uL (1.2-4.9); Lymphocytes Percent Auto 3.9 % (20-40); Mean Corpuscular HGB Conc 37.1 g/dl (31.0-35.0); Mean Corpuscular Hemoglobin 34.4 pg (27.0-33.0); Mean Corpuscular Volume 92.6 fL (80.0-98.0); Monocytes Absolute Auto 0.3 X10*3/uL (0.1-1.2); Monocytes Percent Auto 4.1 % (2-11); Neutrophils Absolute Auto 5.9 x10*3/uL (2.0-8.3); Neutrophils Percent Auto 89.6 % (45-73); Platelet Count 112 X10*3/uL (160-400); Red Blood Count 3.23 X10*6/uL (4.20-5.50); White Blood Count 6.6 X10*3/uL (4.8-10.8)
[2023-07-05 06:32] LABS: INTERNATIONAL NORM RATIO 1.9 (0.9-1.1); Prothrombin Time 22.8 SEC (11.1-13.3)
[2023-07-05 06:33] LABS: Alanine Aminotransferase 24 U/L (0-31); Albumin Level 3.1 g/dL (3.5-5.0); Alkaline Phosphatase 233 U/L (39-117); Anion Gap 18 (12-20); Aspartate Amino Transferase 73 U/L (5-31); Blood Urea Nitrogen 47 mg/dL (9-16); Calcium 9.5 mg/dL (8.4-10.2); Carbon Dioxide 14 mmol/L (22-29); Chloride 105 mmol/L (96-108); Creatinine Clr Calc Pharmacy 16.7; Estimated Glomerular Filt Rate 17; Glucose Random 126 mg/dL (60-115); Potassium 4.3 mmol/L (3.3-5.1); Sodium 133 mmol/L (135-145); Total Protein 5.7 g/dL (6.5-8.0)
[2023-07-05 06:37] LABS: Bilirubin Total 32.6 mg/dL (0.0-1.0)
[2023-07-05 07:36] VITALS: BP 119/77; PULSE 67; RESP 12; TEMP 36.1; O2SAT 100
--- NOTE | 2023-07-05 08:30 | PM.CNNEP ---
History of Present Illness Reason for Consult Consult date: 07/06/23 Chief Complaint Chief complaint: celestine, ?HRS History of Present Illness Narrative: 63-year-old female with history of alcoholic cirrhosis complicated by portal vein hypertension and ascites, alcohol use disorder, gout, hypertension, GERD presented to the ED earlier today for evaluation of weakness and fatigue. Recently had prolonged hospitalization from 06/05-06/20 for acute hepatic encephalopathy, CELESTINE, acute alcoholic hepatitis initially treated with prednisone but transition to pentoxifylline due to GI bleed. She was discharged to home. She continues to abstain from alcohol. Last alcoholic beverage was a small amount on Tuesday. She did undergo therapeutic paracentesis 5 days ago draining 3.7 L fluid. Denies any fevers, chills, abdominal pain, nausea, vomiting, diarrhea, shortness of breath, cough, lightheadedness, chest pain. She does report anorexia and has only been tolerating small amounts of clear liquids and ice cream PMFSH Past Medical History Medical History Hepatic encephalopathy Alcoholic hepatitis Acute kidney injury Thrombocytopenia Portal venous hypertension Abdominal ascites Hyperlipidemia GERD (gastroesophageal reflux disease) Hypertension Cirrhosis Alcohol abuse Surgical History Surgical History Hx of section History of back surgery Hx of esophagogastroduodenoscopy Hx of colonoscopy Social History Social History Household Members: None Housing: Other Housing Other:: trailer Do you presently have visiting nurse or other home services: No Alcohol intake: former Patient Tobacco Use Status: Current everyday Tobacco user Tobacco use type: Cigarette Cigarette Packs Per Day: 1 Cigarettes Per Day: 1 Years Smoked: 40 Second Hand Smoke Exposure: No service: No Meds Allergies Allergy/AdvReac Type Severity Reaction Status Date / Time codeine [CODEINE] Allergy Unknown NAUSEA Verified 07/04/23 11:13 Active Medications: Current Medications Acetaminophen (Acetaminophen 325 Mg Tablet) 650 mg PO Q6H PRN PRN Reason: Pain, Mild (Pain Scale 1-3) Folic Acid (Folic Acid 1 Mg Tablet) 1 mg PO DAILY JOSE ALFREDO Dextrose (D10) 250 mls @ 750 mls/hr IV Q15M PRN PRN Reason: per Hypoglycemia Standing Ord. Last Infusion: 07/04/23 14:49 Dose: Infused Sodium Chloride (Ns) 1,000 mls @ 80 mls/hr IVCONT .[id number] [facility] Last Admin: 07/05/23 04:24 Dose: 80 mls/hr Lactulose (Lactulose 20 Gm/30 Ml Solution) 20 gm PO DAILY [facility] Magnesium Oxide (Magnesium Oxide 400 Mg Tablet) 400 mg PO DAILY [facility] Metoprolol Tartrate (Metoprolol Tartrate 12.5 Mg Halftab) 12.5 mg PO BID [facility]; Protocol Last Admin: 07/04/23 21:10 Dose: 12.5 mg Midodrine (Midodrine Hcl 5 Mg Tablet) 5 mg PO TID [facility] Last Admin: 07/04/23 21:05 Dose: Not Given Omeprazole (Omeprazole 40 Mg Capsule.Dr) 40 mg PO DAILY@629 [facility] Last Admin: 07/05/23 05:29 Dose: 40 mg Ondansetron HCl (Ondansetron Hcl 4 Mg/2 Ml Vial) 4 mg IVPUSH Q8H PRN PRN Reason: Nausea and Vomiting Pentoxifylline (Pentoxifylline Er 400 Mg Tablet.Er) 400 mg PO DAILY [facility] Prednisolone Sodium Phosphate (Prednisolone Sodium Phosphate 15 Mg/5 Ml Solution) 40 mg PO DAILY@729 [facility] Last Admin: 07/04/23 20:05 Dose: 40 mg Rifaximin (Rifaximin 550 Mg Tablet) 550 mg PO BID [facility] Last Admin: 07/04/23 21:10 Dose: 550 mg Senna (Sennosides 8.6 Mg Tablet) 17.2 mg PO BEDTIME PRN PRN Reason: Constipation Sodium Chloride (0.9 % Sodium Chloride Flush 3 Ml Syringe) 3 ml IVFLUSH QSHIFT [facility] Last Admin: 07/04/23 23:36 Dose: Not Given Thiamine HCl (Thiamine Hcl 100 Mg Tablet) 100 mg PO DAILY [facility] Home Medications ?Medication ?Instructions ?Recorded ?Confirmed ?Last Taken ?Type furosemide 20 mg tablet 20 mg PO DAILY 07/04/23 07/04/23 07/03/23 History rifaximin 550 mg tablet 550 mg PO BID 07/04/23 07/04/23 07/03/23 History Physical Exam Vital Signs: Last Vital Signs Temp 96.9 F 07/05/23 07:36 Pulse 67 07/05/23 07:36 Resp 12 07/05/23 07:36 BP 119/77 07/05/23 07:36 Pulse Ox 100 07/05/23 07:36 O2 Del Method Room Air 07/05/23 07:36 BMI result Body Mass Index 24.2 Results Lab Results 07/06/23 06:09 07/06/23 06:09 Lab results: Chemistry 07/04/23 07/04/23 07/05/23 11:52 16:50 05:47 Sodium 132 L 133 L 133 L Potassium 5.8 H D 4.2 D 4.3 Carbon Dioxide 13 L 12 L 14 L BUN 51 H 51 H 47 H Creatinine 2.50 H 2.90 H 2.80 H Calcium 9.5 D 9.7 9.5 Hematology 07/04/23 07/05/23 11:52 05:47 WBC 9.9 6.6 Hgb 11.8 L D 11.1 L Plt Count 121 L D 112 L Urinalysis 07/04/23 16:50 Urine Color Dark Yellow Urine Appearance Cloudy Urine pH 5.5 Ur Specific [place] 1.020 Urine Protein 30 (1+) H Urine Glucose (UA) Negative Urine Ketones Negative Urine Blood Negative Urine Nitrite Positive H Ur Leukocyte Esterase Small (1+) H Urine RBC 6-10 H Urine WBC 0-5 Ur Squamous Epith Cells 11-20 Hyaline Casts >20 Urine Studies 07/04/23 16:50 Urine Creatinine 167.86 Procedures Date of Service Date of Service: 07/06/23
[2023-07-05] MEDS: Metoprolol Tartrate 12.5 MG HALFTAB PO ×2 (08:51→20:13)
[2023-07-05] MEDS: Pentoxifylline ER 400 MG TABLET.ER PO (08:51)
[2023-07-05] MEDS: Midodrine HCl 5 MG TABLET PO ×2 (08:51→15:23)
[2023-07-05] MEDS: Lactulose 20 GM/30 ML SOLUTION PO (08:51)
[2023-07-05] MEDS: Magnesium Oxide 400 MG TABLET PO (08:51)
[2023-07-05] MEDS: rifAXIMin 550 MG TABLET PO ×2 (08:51→20:14)
[2023-07-05] MEDS: Folic Acid 1 MG TABLET PO (08:51)
[2023-07-05] MEDS: prednisoLONE sodium phosphate 15 MG/5 ML SOLUTION 40 MG PO (08:52)
[2023-07-05] MEDS: Thiamine HCL 100 MG TABLET PO (08:52)
[2023-07-05] MEDS: 0.9 % Sodium Chloride Flush 3 ML SYRINGE IVFLUSH ×3 (08:53→23:08)
--- NOTE | 2023-07-05 12:28 | P.PNGI_ITS ---
Subjective Subjective Date of Service: 07/05/23 Interval History: tired no nausea or vomiting shannon abd pain Critical Care Time (minutes): 0 Physical Exam 2 Vital Signs: Vital Signs: Last Vital Signs Temp 96.9 F 07/05/23 07:36 Pulse 67 07/05/23 07:36 Resp 12 07/05/23 07:36 BP 119/77 07/05/23 07:36 Pulse Ox 100 07/05/23 07:36 O2 Del Method Room Air 07/05/23 07:36 BMI result Body Mass Index 24.2 Const: General: cooperative GI: Other: abdomen shows ascites, nontender, no masses Extrem: Other: no edema Objective Data Labs 07/05/23 05:47 07/05/23 05:47 Labs: Microbiology Microbiology Results: Microbiology 07/04/23 17:34 Urine clean catch - Clean Catch Midstream Urine Culture - Preliminary Culture too young to evaluate. 07/04/23 15:30 Ascites Fluid Gram Stain - Final 07/04/23 15:30 Ascites Fluid Routine Culture - Preliminary No growth to date. 07/04/23 15:30 Ascites Fluid Anaerobic Culture - Preliminary No growth to date. Procedures Date of Service Date of Service: 07/05/23 Progress Note: A&P Assessment and plan (1) Liver cirrhosis: Status: Acute Assessment and Plan: mri limited but no obvious obstruction continue prednisolone monitor labs. Time Spent With Patient Time: Total time managing care of this patient today ____ minutes. Quality Stroke Does the patient have a stroke diagnosis?: No VTE Prior VTE?: No VTE Risk Level:: Medical - moderate - high VTE Device Contraindication: N/A - Device Ordered VTE Drug Contraindication: Treatment Not Indicated
--- NOTE | 2023-07-05 12:34 | MHC.CM.PN ---
Patient is from home alone. Denies use of DME or services. However, feels that she may need some services on dc, such as PT / homemaking / MOW. PCP Satish Sharma MD HCP on file and verified. IMM delivered. DP: Goal is home w/ services via [employer]. Prefers [facility]. Referral sent, though no PT eval ordered at this time. Also sent [facility] task to discuss home making and MOW per patient request. CM will continue to follow.
--- NOTE | 2023-07-05 15:07 | P.PNIM_ITS ---
Subjective Subjective Date of Service: 07/05/23 Interval History: seen and evaluated feels tired and reports itching Bilirubin decreased a little Cr remains elevated MRCP negative for obstruction Review of Systems Review of Systems: Yes all other systems are reviewed and are negative Physical Exam 2 Vital Signs: Vital Signs: Last Vital Signs Temp 96.9 F 07/05/23 07:36 Pulse 67 07/05/23 07:36 Resp 12 07/05/23 07:36 BP 119/77 07/05/23 07:36 Pulse Ox 100 07/05/23 07:36 O2 Del Method Room Air 07/05/23 07:36 BMI result Body Mass Index 24.2 Const: Other: Constitutional : Awake, interactive, jaundiced, not in distress Neck : Normal inspection, Supple Cardiovascular : RRR, no JVP, trace lower extremity edema Respiratory : good bilateral air entry, no wheezes or rhonchi Gastrointestinal: soft, lax, Normal bowel sounds, Non tender, small ascites Skin : Warm, Dry Neurological : Alert & oriented x3, No focal deficit Objective Data Active Medications Acetaminophen (Acetaminophen 325 Mg Tablet) 650 mg PO Q6H PRN PRN Reason: Pain, Mild (Pain Scale 1-3) Folic Acid (Folic Acid 1 Mg Tablet) 1 mg PO DAILY [facility] Last Admin: 07/05/23 08:51 Dose: 1 mg Documented By: ALEENA Dextrose (D10) 250 mls @ 750 mls/hr IV Q15M PRN PRN Reason: per Hypoglycemia Standing Ord. Last Infusion: 07/04/23 14:49 Dose: Infused Documented By: VERENA Sodium Chloride (Ns) 1,000 mls @ 80 mls/hr IVCONT .[id number] [facility] Last Admin: 07/05/23 04:24 Dose: 80 mls/hr Documented By: ANTDOM Lactulose (Lactulose 20 Gm/30 Ml Solution) 20 gm PO DAILY [facility] Last Admin: 07/05/23 08:51 Dose: 20 gm Documented By: ALEENA Magnesium Oxide (Magnesium Oxide 400 Mg Tablet) 400 mg PO DAILY [facility] Last Admin: 07/05/23 08:51 Dose: 400 mg Documented By: ALEENA Metoprolol Tartrate (Metoprolol Tartrate 12.5 Mg Halftab) 12.5 mg PO BID [facility]; Protocol Last Admin: 07/05/23 08:51 Dose: 12.5 mg Documented By: ALEENA Midodrine (Midodrine Hcl 5 Mg Tablet) 5 mg PO TID [facility] Last Admin: 07/05/23 08:51 Dose: 5 mg Documented By: ALEENA Omeprazole (Omeprazole 40 Mg Capsule.Dr) 40 mg PO DAILY@0630 [facility] Last Admin: 07/05/23 05:29 Dose: 40 mg Documented By: ANTDOM Ondansetron HCl (Ondansetron Hcl 4 Mg/2 Ml Vial) 4 mg IVPUSH Q8H PRN PRN Reason: Nausea and Vomiting Pentoxifylline (Pentoxifylline Er 400 Mg Tablet.Er) 400 mg PO DAILY [facility] Last Admin: 07/05/23 08:51 Dose: 400 mg Documented By: ALEENA Prednisolone Sodium Phosphate (Prednisolone Sodium Phosphate 15 Mg/5 Ml Solution) 40 mg PO DAILY@0730 [facility] Last Admin: 07/05/23 08:52 Dose: 40 mg Documented By: ALEENA Rifaximin (Rifaximin 550 Mg Tablet) 550 mg PO BID [facility] Last Admin: 07/05/23 08:51 Dose: 550 mg Documented By: ALEENA Senna (Sennosides 8.6 Mg Tablet) 17.2 mg PO BEDTIME PRN PRN Reason: Constipation Sodium Chloride (0.9 % Sodium Chloride Flush 3 Ml Syringe) 3 ml IVFLUSH QSHIFT [facility] Last Admin: 07/05/23 08:53 Dose: 3 ml Documented By: ALEENA Thiamine HCl (Thiamine Hcl 100 Mg Tablet) 100 mg PO DAILY [facility] Last Admin: 07/05/23 08:52 Dose: 100 mg Documented By: ALEENA Labs 07/05/23 05:47 07/05/23 05:47 Labs: Laboratory Results - last 24 hr 07/04/23 07/04/23 07/04/23 14:59 15:30 16:50 MCV MCH MCHC RDW Plt Count MPV Immature Gran % (Auto) Neut % (Auto) Lymph % (Auto) [place] % (Auto) Eos % (Auto) Baso % (Auto) Lymph # (Auto) [place] # (Auto) Eos # (Auto) Baso # (Auto) Abs Immat Gran (auto) Absolute Neuts (auto) Absolute Nucleated RBC Nucleated RBC % (auto) PT INR VBG pH VBG pCO2 VBG pO2 VBG HCO3 VBG O2 Saturation VBG Base Excess Anion Gap 20 Estim Creat Clear Calc 16.2 Estimated GFR 16 Random Glucose 87 Lactic Acid Calcium 9.7 Total Bilirubin 34.0 H Direct Bilirubin AST 95 H ALT 23 Alkaline Phosphatase 233 H Ammonia 113 H Total Protein 5.9 L Albumin 3.2 L Urine Color Dark Yellow Urine Appearance Cloudy Urine pH 5.5 Ur Specific [place] 1.020 Urine Protein 30 (1+) H Urine Glucose (UA) Negative Urine Ketones Negative Urine Blood Negative Urine Nitrite Positive H Ur Leukocyte Esterase Small (1+) H Urine RBC 6-10 H Urine WBC 0-5 Ur Squamous Epith Cells 11-20 Urine Bacteria None Seen Hyaline Casts >20 Ur Random Sodium 49.0 Urine Creatinine 167.86 Peritoneal WBC 0.047 Peritoneal RBC < 0.002 Periton Neutrophils 3 Periton Lymphocytes 18 Peritoneal Monocytes 4 07/04/23 07/04/23 07/05/23 17:58 18:17 05:47 MCV 92.6 MCH 34.4 H MCHC 37.1 H RDW 21.0 H Plt Count 112 L MPV 11.0 Immature Gran % (Auto) 1.4 H Neut % (Auto) 89.6 H Lymph % (Auto) 3.9 L [place] % (Auto) 4.1 Eos % (Auto) 0.2 Baso % (Auto) 0.8 Lymph # (Auto) 0.3 L [place] # (Auto) 0.3 Eos # (Auto) 0.0 Baso # (Auto) 0.1 Abs Immat Gran (auto) 0.09 H Absolute Neuts (auto) 5.9 Absolute Nucleated RBC 0.000 Nucleated RBC % (auto) 0.0 PT 22.8 H INR 1.9 H VBG pH 7.49 H VBG pCO2 16 VBG pO2 231 VBG HCO3 12 L VBG O2 Saturation 99.0 VBG Base Excess -8.2 Anion Gap 18 Estim Creat Clear Calc 16.7 Estimated GFR 17 Random Glucose 126 H Lactic Acid 1.3 Calcium 9.5 Total Bilirubin 32.6 H Direct Bilirubin 24.0 H AST 73 H ALT 24 Alkaline Phosphatase 233 H Ammonia 65 H Total Protein 5.7 L Albumin 3.1 L Urine Color Urine Appearance Urine pH Ur Specific [place] Urine Protein Urine Glucose (UA) Urine Ketones Urine Blood Urine Nitrite Ur Leukocyte Esterase Urine RBC Urine WBC Ur Squamous Epith Cells Urine Bacteria Hyaline Casts Ur Random Sodium Urine Creatinine Peritoneal WBC Peritoneal RBC Periton Neutrophils Periton Lymphocytes Peritoneal Monocytes Microbiology Microbiology Results: Microbiology 07/04/23 17:34 Urine Culture - Preliminary Urine clean catch - Clean Catch Midstream Culture too young to evaluate. 07/04/23 15:30 Gram Stain - Final Ascites Fluid Routine Culture - Preliminary No growth to date. Anaerobic Culture - Preliminary No growth to date. Assessment and Plan (1) Liver cirrhosis: Status: Acute (2) Hyperbilirubinemia: Status: Acute (3) Hyperkalemia: Status: Acute (4) Acute on chronic kidney failure: Status: Acute (5) Hepatorenal syndrome: Status: Acute Plan 63-year-old female with history of alcoholic cirrhosis complicated by portal vein hypertension and ascites, alcohol use disorder, gout, hypertension, GERD admitted for further management acute decompensated hepatic cirrhosis with acute kidney injury. # acute kidney injury Could be 2/2 Hepatorenal syndrome creatinine 2.9, baseline 1.4. continue gentle IV fluid resuscitation hold diuretics at this time Start Albumin and Octreotide nephrology consult pending follow I\O, BMP # acute metabolic acidosis stable, improving slowly Sodium bicarb PO follow nephro rec. #Acute hyperkalemia resolved # acute decompensated hepatic cirrhosis complicated by ascites, portal vein hypertension total bilirubin 32 today No recent alcohol use, doubt acute alcoholic hepatitis. NOT a candidate for transplant GI rec starting Prednisolone therapy paracentesis performed by IR does not indicate SBP, hold on Abx GI following #Abnormal UA UA positive for nitrites, leukocytes, scant urinary sediment. Patient is asymptomatic hold on abx for now, await cultures # coagulopathy INR 1.7, PT 20.5, baseline related to cirrhosis # chronic normocytic anemia related to chronic disease, H/H improved since last admission # chronic thrombocytopenia related to cirrhosis # orthostatic hypotension continue midodrine # alcohol use disorder in early remission. Relapse on Tuesday without any further alcohol use DVT prophylaxis-SCPs Full code Patient requires inpatient stay overnight for management of acute kidney injury likely in setting of hepatorenal syndrome/decompensated alcoholic cirrhosis requiring , labor custodian consult, IV fluid resuscitation, and close monitoring of renal function and electrolyte levels Quality Stroke Does the patient have a stroke diagnosis?: No VTE Prior VTE?: No VTE Risk Level:: Medical - moderate - high VTE Device Contraindication: N/A - Device Ordered VTE Drug Contraindication: Treatment Not Indicated
[2023-07-05 15:14] VITALS: BP 102/69; PULSE 84; RESP 18; TEMP 36.1; O2SAT 95
[2023-07-05] MEDS: Sodium Bicarbonate 650 MG TABLET PO ×2 (15:23→20:13)
[2023-07-05] MEDS: diphenhydrAMINE HCL 25 MG CAPSULE PO ×2 (15:23→21:24)
[2023-07-05] MEDS: Albumin Human 25 % 100 ML IV ×2 (16:04→21:25)
[2023-07-05] MEDS: Octreotide Acetate 100 MCG/ML AMPUL IVPUSH ×2 (17:03→23:08)
[2023-07-05 19:21] VITALS: BP 127/69; PULSE 67; RESP 18; TEMP 36.1; O2SAT 99
[2023-07-06] VITALS (9 sets, daily range): BP systolic 80–125; BP diastolic 50–73; PULSE 53–86; RESP 12–16; TEMP 36–36.4; O2SAT 98–100
[2023-07-06] MEDS: Melatonin 3 MG TABLET 6 MG PO ×2 (02:21→19:57)
[2023-07-06] MEDS: Albumin Human 25 % 100 ML IV ×4 (02:40→22:59)
[2023-07-06] MEDS: 0.9 % Sodium Chloride 1,000 ML 80 ML IVCONT ×2 (05:45→17:42)
[2023-07-06] MEDS: diphenhydrAMINE HCL 25 MG CAPSULE PO ×2 (05:45→17:18)
[2023-07-06] MEDS: Omeprazole 40 MG CAPSULE.DR PO (05:45)
[2023-07-06 07:20] LABS: Hematocrit 28.4 % (37.0-47.0); Hemoglobin 10.4 g/dl (12.0-16.0); Mean Corpuscular HGB Conc 36.6 g/dl (31.0-35.0); Mean Corpuscular Hemoglobin 34.2 pg (27.0-33.0); Mean Corpuscular Volume 93.4 fL (80.0-98.0); Mean Platelet Volume 10.4 fL (9.4-12.3); Platelet Count 106 X10*3/uL (160-400); Red Blood Count 3.04 X10*6/uL (4.20-5.50); White Blood Count 9.9 X10*3/uL (4.8-10.8)
[2023-07-06 07:56] LABS: Anion Gap 22 (12-20); Blood Urea Nitrogen 44 mg/dL (9-16); Chloride 108 mmol/L (96-108); Estimated Glomerular Filt Rate 25; Glucose Random 164 mg/dL (60-115); Potassium 4.5 mmol/L (3.3-5.1); Sodium 135 mmol/L (135-145)
[2023-07-06 07:57] LABS: Alanine Aminotransferase 18 U/L (0-31); Albumin Level 3.7 g/dL (3.5-5.0); Alkaline Phosphatase 200 U/L (39-117); Aspartate Amino Transferase 49 U/L (5-31); Bilirubin Total 28.1 mg/dL (0.0-1.0); Total Protein 5.9 g/dL (6.5-8.0)
[2023-07-06 07:59] LABS: Carbon Dioxide 10 mmol/L (22-29)
[2023-07-06 08:04] LABS: Bilirubin Direct 21.4 mg/dL (0.0-0.5)
[2023-07-06] MEDS: prednisoLONE sodium phosphate 15 MG/5 ML SOLUTION 40 MG PO (08:43)
[2023-07-06] MEDS: Metoprolol Tartrate 12.5 MG HALFTAB PO ×2 (08:44→19:56)
[2023-07-06] MEDS: Pentoxifylline ER 400 MG TABLET.ER PO (08:45)
[2023-07-06] MEDS: Magnesium Oxide 400 MG TABLET PO (08:45)
[2023-07-06] MEDS: Thiamine HCL 100 MG TABLET PO (08:45)
[2023-07-06] MEDS: Folic Acid 1 MG TABLET PO (08:45)
[2023-07-06] MEDS: rifAXIMin 550 MG TABLET PO ×2 (08:45→19:56)
[2023-07-06] MEDS: Lactulose 20 GM/30 ML SOLUTION PO (08:46)
[2023-07-06] MEDS: Octreotide Acetate 100 MCG/ML AMPUL IVPUSH ×2 (08:46→16:11)
[2023-07-06] MEDS: Sodium Bicarbonate 650 MG TABLET PO (08:46)
[2023-07-06] MEDS: Midodrine HCl 5 MG TABLET PO ×3 (08:46→19:57)
[2023-07-06 10:40] LABS: Venous Blood Gas Refer to POC result
[2023-07-06 10:42] LABS: Prothrombin Time 24.5 SEC (11.1-13.3)
[2023-07-06 10:43] LABS: VBG Base Excess -11.4 mmol/L; VBG HCO3 14 mmol/L (22-26); VBG pCO2 33 mmHg; VBG pH 7.24 (7.32-7.43); VBG pO2 28 mmHg
--- NOTE | 2023-07-06 11:21 | HO.PM.IMPN ---
Subjective Subjective Date of Service: 07/06/23 Interval History: abd pain, distension Physical Exam Vital Signs: Vital Signs: Last Vital Signs Temp 96.8 F 07/06/23 08:00 Pulse 65 07/06/23 10:39 Resp 12 07/06/23 08:00 BP 125/73 07/06/23 10:39 Pulse Ox 100 07/06/23 10:39 O2 Del Method Room Air 07/06/23 08:00 BMI result Body Mass Index 24.2 General: AO X 3, no acute distress. jaundiced Resp: diminished bilateral, no accessory muscles used CVS: S1,S2,RRR GI: soft, non tender, distended Neuro: motor grossly intact, alert Psych: appropriate affect, appropriate insight Objective Data Active Medications Acetaminophen (Acetaminophen 325 Mg Tablet) 650 mg PO Q6H PRN PRN Reason: Pain, Mild (Pain Scale 1-3) Diphenhydramine HCl (Diphenhydramine Hcl 25 Mg Capsule) 25 mg PO Q6H PRN PRN Reason: Itching Last Admin: 07/06/23 05:45 Dose: 25 mg Documented By: STAN Folic Acid (Folic Acid 1 Mg Tablet) 1 mg PO DAILY [facility] Last Admin: 07/06/23 08:45 Dose: 1 mg Documented By: HERBERTH Dextrose (D10) 250 mls @ 750 mls/hr IV Q15M PRN PRN Reason: per Hypoglycemia Standing Ord. Last Infusion: 07/04/23 14:49 Dose: Infused Documented By: VERENA Sodium Chloride (Ns) 1,000 mls @ 80 mls/hr IVCONT .[id number] [facility] Last Admin: 07/06/23 05:45 Dose: 80 mls/hr Documented By: STAN Lactulose (Lactulose 20 Gm/30 Ml Solution) 20 gm PO DAILY [facility] Last Admin: 07/06/23 08:46 Dose: 20 gm Documented By: HERBERTH Magnesium Oxide (Magnesium Oxide 400 Mg Tablet) 400 mg PO DAILY [facility] Last Admin: 07/06/23 08:45 Dose: 400 mg Documented By: HERBERTH Melatonin (Melatonin 3 Mg Tablet) 6 mg PO BEDTIME PRN PRN Reason: Insomnia Last Admin: 07/06/23 02:21 Dose: 6 mg Documented By: STAN Metoprolol Tartrate (Metoprolol Tartrate 12.5 Mg Halftab) 12.5 mg PO BID [facility]; Protocol Last Admin: 07/06/23 08:44 Dose: 12.5 mg Documented By: HERBERTH Midodrine (Midodrine Hcl 5 Mg Tablet) 5 mg PO TID [facility] Last Admin: 07/06/23 08:46 Dose: 5 mg Documented By: HERBERTH Octreotide Acetate (Octreotide Acetate 100 Mcg/Ml Ampul) 100 mcg IVPUSH Q8H [facility] Last Admin: 07/06/23 08:46 Dose: 100 mcg Documented By: HERBERTH Omeprazole (Omeprazole 40 Mg Capsule.Dr) 40 mg PO DAILY@0630 [facility] Last Admin: 07/06/23 05:45 Dose: 40 mg Documented By: STAN Ondansetron HCl (Ondansetron Hcl 4 Mg/2 Ml Vial) 4 mg IVPUSH Q8H PRN PRN Reason: Nausea and Vomiting Pentoxifylline (Pentoxifylline Er 400 Mg Tablet.Er) 400 mg PO DAILY [facility] Last Admin: 07/06/23 08:45 Dose: 400 mg Documented By: HERBERTH Prednisolone Sodium Phosphate (Prednisolone Sodium Phosphate 15 Mg/5 Ml Solution) 40 mg PO DAILY@0730 [facility] Last Admin: 07/06/23 08:43 Dose: 40 mg Documented By: HERBERTH Rifaximin (Rifaximin 550 Mg Tablet) 550 mg PO BID [facility] Last Admin: 07/06/23 08:45 Dose: 550 mg Documented By: HERBERTH Senna (Sennosides 8.6 Mg Tablet) 17.2 mg PO BEDTIME PRN PRN Reason: Constipation Sodium Bicarbonate (Sodium Bicarbonate 650 Mg Tablet) 1,300 mg PO BID [facility] Sodium Chloride (0.9 % Sodium Chloride Flush 3 Ml Syringe) 3 ml IVFLUSH QSHIFT [facility] Last Admin: 07/06/23 08:58 Dose: Not Given Documented By: HERBERTH Non-Admin Reason: IV Running Thiamine HCl (Thiamine Hcl 100 Mg Tablet) 100 mg PO DAILY [facility] Last Admin: 07/06/23 08:45 Dose: 100 mg Documented By: HERBERTH Labs 07/06/23 06:09 07/06/23 06:09 Labs: Laboratory Results - last 24 hr 0507/06/23 07/06/23 06:09 10:29 10:33 MCV 93.4 MCH 34.2 H MCHC 36.6 H RDW 21.0 H Plt Count 106 L MPV 10.4 Absolute Nucleated RBC 0.000 Nucleated RBC % (auto) 0.0 PT 24.5 H INR 2.0 H VBG pH 7.24 L VBG pCO2 33 VBG pO2 28 VBG HCO3 14 L VBG O2 Saturation 46.0 VBG Base Excess -11.4 Anion Gap 22 H Estim Creat Clear Calc 23.0 Estimated GFR 25 Random Glucose 164 H Calcium 9.0 Total Bilirubin 28.1 H Direct Bilirubin 21.4 H AST 49 H ALT 18 Alkaline Phosphatase 200 H Total Protein 5.9 L Albumin 3.7 Microbiology Microbiology Results: Microbiology 07/04/23 17:34 Urine Culture - Final Urine clean catch - Clean Catch Midstream 07/04/23 17:58 Blood Culture - Preliminary Blood - Venous No growth after 24 hours. 07/04/23 17:44 Blood Culture - Preliminary Blood - Venous No growth after 24 hours. 07/04/23 15:30 Gram Stain - Final Ascites Fluid Routine Culture - Preliminary No growth to date. Anaerobic Culture - Preliminary No growth to date. Assessment and Plan (1) Liver cirrhosis: Status: Acute (2) Hyperbilirubinemia: Status: Acute (3) Hyperkalemia: Status: Acute (4) Acute on chronic kidney failure: Status: Acute (5) Hepatorenal syndrome: Status: Acute Plan 63F PMH alcoholic cirrhosis complicated by portal hypertension and ascites, alcohol use disorder, gout, hypertension, GERD presented with worsening fatigue and jaundice, found to have acute kidney injury and worsening liver function acute kidney injury Could be 2/2 Hepatorenal syndrome Improving creatinine continue gentle IV fluid resuscitation hold diuretics on Albumin and Octreotide nephrology following follow I\O, BMP acute metabolic acidosis Sodium bicarb PO increased to 1300 mg b.i.d Monitor Acute hyperkalemia resolved acute decompensated hepatic cirrhosis complicated by ascites, portal vein hypertension NOT a candidate for transplant GI rec starting Prednisolone therapy paracentesis performed by IR does not indicate SBP, hold on Abx - plan for low volume therapeutic paracentesis today GI following chronic normocytic anemia related to chronic disease, H/H improved since last admission chronic thrombocytopenia related to cirrhosis orthostatic hypotension continue midodrine alcohol use disorder in early remission. Relapse on Tuesday without any further alcohol use DVT prophylaxis-SCPs due to coagulopathy Full code reason for continued hospitalization: Acute acidosis Quality Stroke Does the patient have a stroke diagnosis?: No VTE Prior VTE?: No VTE Risk Level:: Medical - moderate - high VTE Device Contraindication: N/A - Device Ordered VTE Drug Contraindication: Treatment Not Indicated
--- NOTE | 2023-07-06 13:48 | MHC.CM.PN ---
PT recommending STR. Patient is agreeable and prefers facilities in [place]. Referrals placed in [facility]. Per [facility] liaison, patient is not in their service are but would benefit from homemaking, chore services and personal care. Referral placed to [facility] via online form. CM will continue to follow.
[2023-07-06] MEDS: ondansetron HCL 4 MG/2 ML VIAL IVPUSH (16:17)
[2023-07-06] MEDS: Sodium Bicarbonate 650 MG TABLET 1300 MG PO (19:56)
[2023-07-06] MEDS: traMADoL HCL 50 MG TABLET 25 MG PO (19:57)
--- NOTE | 2023-07-06 20:46 | P.PNNP_ITS ---
Subjective Subjective Date of Service: 07/06/23 Interval history: Events noted; abd pain, distension; All recent data reviewed Physical Exam 2 Vital Signs: Vital Signs: Last Vital Signs Temp 96.8 F 07/06/23 19:22 Pulse 86 07/06/23 19:22 Resp 15 07/06/23 19:22 BP 101/66 07/06/23 19:22 Pulse Ox 99 07/06/23 19:22 O2 Del Method Room Air 07/06/23 19:22 BMI result Body Mass Index 24.2 Const: General: comfortable and no acute distress HEENT: Head: Yes normocephalic Mouth: Normal oral and palatal mucosa present Eyes: EOM: EOMs intact bilaterally Neck: Neck: Yes supple Resp: Auscultation: clear to auscultation bilaterally Cardio: Jugular venous distension: no JVD Rate: regular rate Heart sounds: Murmur heart sound present GI: Palpation (GI): Soft to palpation Auscultation: normal bowel sounds : General: Yes no CVA tenderness Back/Spine/Pelvis: Back: no CVA tenderness Skin: General skin exam: no rashes or lesions noted Neuro: General: moves all extremities Objective Data Labs 07/06/23 06:09 07/06/23 06:09 Labs: Laboratory Results - last 24 hr 07/06/23 07/06/23 07/06/23 06:09 10:29 10:33 WBC 9.9 RBC 3.04 L Hgb 10.4 L Hct 28.4 L MCV 93.4 MCH 34.2 H MCHC 36.6 H RDW 21.0 H Plt Count 106 L MPV 10.4 Absolute Nucleated RBC 0.000 Nucleated RBC % (auto) 0.0 PT 24.5 H INR 2.0 H VBG pH 7.24 L VBG pCO2 33 VBG pO2 28 VBG HCO3 14 L VBG O2 Saturation 46.0 VBG Base Excess -11.4 Sodium 135 Potassium 4.5 Chloride 108 Carbon Dioxide 10 L* D Anion Gap 22 H BUN 44 H Creatinine 2.04 H Estim Creat Clear Calc 23.0 Estimated GFR 25 Random Glucose 164 H Calcium 9.0 Total Bilirubin 28.1 H Direct Bilirubin 21.4 H AST 49 H ALT 18 Alkaline Phosphatase 200 H Total Protein 5.9 L Albumin 3.7 Microbiology Microbiology Results: Microbiology 07/04/23 17:58 Blood - Venous Blood Culture - Preliminary No growth after 48 hours. 07/04/23 17:44 Blood - Venous Blood Culture - Preliminary No growth after 48 hours. 07/04/23 15:30 Ascites Fluid Gram Stain - Final 07/04/23 15:30 Ascites Fluid Routine Culture - Preliminary No growth to date. 07/04/23 15:30 Ascites Fluid Anaerobic Culture - Preliminary No growth to date. 07/04/23 17:34 Urine clean catch - Clean Catch Midstream Urine Culture - Final Procedures Date of Service Date of Service: 07/06/23 Assessment & Plan Assessment and plan (1) Acute on chronic kidney failure: Status: Acute Plan Acute Kidney Injury due to tubular injury Has HRS 2 at baseline No reason to suspect AIN/GN Renal function improving Started on NaHCO3 No indication for renal replacement C/W rest of current supportive care for now Progress Note: Quality Stroke Does the patient have a stroke diagnosis?: No
[2023-07-06 21:50] LABS: Glucose, Whole Blood 176 mg/dL (60-115)
--- NOTE | 2023-07-06 21:52 | PM.EVENT ---
Event Note Date of Service: 07/06/23 Event Note: Rapid response was called as patient had a syncopal episode in the restroom. Denies chest pain, dizziness or lightheadedness. Blood glucose okay. Blood pressure 86/58. Will order albumin and closely monitor. Also on maintenance crystalloids. Obtaining VBG and troponin Time Spent With Patient Time: Total time managing care of this patient today ____ minutes.
[2023-07-06 22:42] LABS: Venous Blood Gas Refer to POC result
[2023-07-06 22:43] LABS: VBG Base Excess -14.4 mmol/L; VBG HCO3 9 mmol/L (22-26); VBG pCO2 19 mmHg; VBG pH 7.31 (7.32-7.43); VBG pO2 83 mmHg
[2023-07-06 22:59] LABS: Troponin-I High Sensitivity 3.9 ng/L (<3.5-17.0)
--- NOTE | 2023-07-06 23:06 | PC.NURSE ---
Around 2150 pt set off bed alarm after sitting on the edge of the bed, stated that she needed to use the bathroom. Ambulated pt to the bathroom and had a syncopal episode, this RN caught her and lowered her to the floor, Rapid Response called and 2 RN LACTATION CONSULTANT's carried her back into bed. Pt's BP was 80/50 manually. Labs ordered and 2 doses of IV albumin ordered. After first albumin was given pt's BP was 102/55. Dr. Sachin chopra.
[2023-07-07] VITALS (32 sets, daily range): BP systolic 86–176; BP diastolic 39–90; PULSE 58–116; RESP 7–22; TEMP 35.5–36.7; O2SAT 98–100
[2023-07-07] MEDS: Octreotide Acetate 100 MCG/ML AMPUL IVPUSH ×2 (00:01→08:53)
[2023-07-07] MEDS: ondansetron HCL 4 MG/2 ML VIAL IVPUSH ×2 (03:30→05:17)
--- NOTE | 2023-07-07 03:49 | PC.NURSE ---
Around 0340 pt yelling for help, ANJALI went to help her, stated she was going to vomit. This RN gave PRN IV Zofran. Pt stated she needed to use the bathroom but was too weak to even sit up on the side of the bed, when we did sit her up pt was unable to hold herself up. Nursing field operations supervisor and Dr. Stephenson at bedside to evaluate. Pt's vitals are stable. Dr. Stephenson ordering more labs. Telesitter placed in room for pt's safety. Will continue to monitor.
[2023-07-07] MEDS: HYDROmorphone HCl 0.5 MG/0.5 ML SYRINGE 0.25 MG IVPUSH (04:12)
[2023-07-07 04:23] LABS: ABG Base Excess -15.7 mmol/L; ABG HCO3 9 mmol/L (22-26); ABG pCO2 19 mmHg (32-45); ABG pH 7.28 (7.35-7.45); ABG pO2 118 mmHg (83-108)
[2023-07-07 04:25] LABS: ABG Refer to POC result
--- NOTE | 2023-07-07 04:33 | PM.EVENT ---
Event Note Date of Service: 07/07/23 Event Note: Patient more lethargic than usual as per RN. Obtained ABG with metabolic acidosis. Ordering IV bicarb Time Spent With Patient Time: Total time managing care of this patient today ____ minutes.
[2023-07-07] MEDS: Sodium Bicarbonate 8.4% 50 MEQ/50 ML SYRINGE IVPUSH (04:38)
--- NOTE | 2023-07-07 05:46 | PC.NURSE ---
Pt c/o nausea, PRN IV Zofran given at 0330 with not much relief. Pt c/o 9/10 abdominal pain, 0.25 mg IV Dilaudid given at 0412 with [address] much relief. Dr. Stephenson ordered ABG's, pt's bicarb is 19, IV Sodium Bicarb given at 0438. Pt continues to c/o nausea, Dr. Stephenson ordered a one time dose of IV Zofran, given at 0517, pt reports some relief. Pt unable to void overnight, bladder scanned pt for 859 ml, Yao ordered and placed. Will continue to monitor.
--- NOTE | 2023-07-07 07:36 | PC.NURSE ---
transfer report given to Kera VELASQUEZ
[2023-07-07 07:43] LABS: Mean Corpuscular HGB Conc 35.1 g/dl (31.0-35.0); Mean Corpuscular Hemoglobin 34.3 pg (27.0-33.0); Mean Corpuscular Volume 97.8 fL (80.0-98.0); NRBC Pct Auto 0.1 /100WBC (0.0-0.2); Platelet Count 145 X10*3/uL (160-400); Red Blood Count 1.37 X10*6/uL (4.20-5.50); Red Cell Distribution Width 21.7 % (11.0-16.0); White Blood Count 16.9 X10*3/uL (4.8-10.8)
[2023-07-07 07:57] LABS: Ammonia 30 umol/L (13-55); INTERNATIONAL NORM RATIO 2.5 (0.9-1.1); Prothrombin Time 30.1 SEC (11.1-13.3)
[2023-07-07 08:16] LABS: Alanine Aminotransferase 21 U/L (0-31); Albumin Level 3.7 g/dL (3.5-5.0); Alkaline Phosphatase 128 U/L (39-117); Anion Gap 25 (12-20); Aspartate Amino Transferase 72 U/L (5-31); Bilirubin Direct 14.5 mg/dL (0.0-0.5); Bilirubin Total 22.4 mg/dL (0.0-1.0); Blood Urea Nitrogen 46 mg/dL (9-16); Calcium 8.4 mg/dL (8.4-10.2); Chloride 110 mmol/L (96-108); Creatinine Clr Calc Pharmacy 15.6; Estimated Glomerular Filt Rate 16; Glucose Fasting 209 mg/dL (60-99); Hemoglobin 4.7 g/dl (12.0-16.0); Potassium 3.9 mmol/L (3.3-5.1); Sodium 139 mmol/L (135-145); Total Protein 4.9 g/dL (6.5-8.0)
[2023-07-07 08:17] LABS: Hematocrit 13.4 % (37.0-47.0)
[2023-07-07 08:30] LABS: Carbon Dioxide 8 mmol/L (22-29)
[2023-07-07] MEDS: Pantoprazole Sodium 40 MG/10 ML VIAL IVPUSH ×2 (08:53→16:29)
[2023-07-07] MEDS: 0.9 % Sodium Chloride Flush 3 ML SYRINGE IVFLUSH ×2 (08:54→16:56)
[2023-07-07] MEDS: Midodrine HCl 5 MG TABLET PO (08:58)
[2023-07-07] MEDS: Sodium Bicarbonate 650 MG TABLET 1300 MG PO (08:59)
[2023-07-07] MEDS: Sodium Bicarbonate 8.4% 150 MEQ in Dextrose 5 % 850 ML 100 MEQ IV ×2 (09:14→22:42)
[2023-07-07 09:38] LABS: Ammonia 26 umol/L (13-55)
[2023-07-07 09:45] LABS: Hematocrit 12.6 % (37.0-47.0); Hemoglobin 4.6 g/dl (12.0-16.0)
--- NOTE | 2023-07-07 09:53 | HO.PM.IMPN ---
Subjective Subjective Date of Service: 07/07/23 Interval History: syncopal episode on toilet overnight, more lethargic, abd pain, no gross blood noted, but hgb dropped significantly Physical Exam Vital Signs: Vital Signs: Last Vital Signs Temp 97.2 F 07/07/23 08:00 Pulse 89 07/07/23 08:00 Resp 20 07/07/23 08:00 BP 88/56 L 07/07/23 08:00 Pulse Ox 98 07/07/23 08:00 O2 Del Method Room Air 07/07/23 08:00 BMI result Body Mass Index 24.2 lethargic, ill appearing, jaundiced abd less distended oriented times 3 Objective Data Active Medications Acetaminophen (Acetaminophen 325 Mg Tablet) 650 mg PO Q6H PRN PRN Reason: Pain, Mild (Pain Scale 1-3) Diphenhydramine HCl (Diphenhydramine Hcl 25 Mg Capsule) 25 mg PO Q6H PRN PRN Reason: Itching Last Admin: 07/06/23 17:18 Dose: 25 mg Documented By: HERBERTH Folic Acid (Folic Acid 1 Mg Tablet) 1 mg PO DAILY [facility] Last Admin: 07/06/23 08:45 Dose: 1 mg Documented By: HERBERTH Dextrose (D10) 250 mls @ 750 mls/hr IV Q15M PRN PRN Reason: per Hypoglycemia Standing Ord. Last Infusion: 07/04/23 14:49 Dose: Infused Documented By: VERENA Sodium Bicarbonate 150 meq/ (Dextrose) 1,000 mls @ 100 mls/hr IV .Q10H [facility] Last Admin: 07/07/23 09:14 Dose: 100 mls/hr Documented By: ALEENA Lactulose (Lactulose 20 Gm/30 Ml Solution) 20 gm PO DAILY [facility] Last Admin: 07/06/23 08:46 Dose: 20 gm Documented By: HERBERTH Magnesium Oxide (Magnesium Oxide 400 Mg Tablet) 400 mg PO DAILY [facility] Last Admin: 07/06/23 08:45 Dose: 400 mg Documented By: HERBERTH Melatonin (Melatonin 3 Mg Tablet) 6 mg PO BEDTIME PRN PRN Reason: Insomnia Last Admin: 07/06/23 19:57 Dose: 6 mg Documented By: STAN Midodrine (Midodrine Hcl 5 Mg Tablet) 5 mg PO TID [facility] Last Admin: 07/07/23 08:58 Dose: 5 mg Documented By: ALEENA Octreotide Acetate (Octreotide Acetate 100 Mcg/Ml Ampul) 100 mcg IVPUSH Q8H [facility] Last Admin: 07/07/23 08:53 Dose: 100 mcg Documented By: ALEENA Ondansetron HCl (Ondansetron Hcl 4 Mg/2 Ml Vial) 4 mg IVPUSH Q8H PRN PRN Reason: Nausea and Vomiting Last Admin: 07/07/23 03:30 Dose: 4 mg Documented By: STAN Pantoprazole Sodium (Pantoprazole Sodium 40 Mg/10 Ml Vial) 40 mg IVPUSH BID@0630,1630 [facility] Last Admin: 07/07/23 08:53 Dose: 40 mg Documented By: ALEENA Pentoxifylline (Pentoxifylline Er 400 Mg Tablet.Er) 400 mg PO DAILY [facility] Last Admin: 07/06/23 08:45 Dose: 400 mg Documented By: HERBERTH Rifaximin (Rifaximin 550 Mg Tablet) 550 mg PO BID [facility] Last Admin: 07/06/23 19:56 Dose: 550 mg Documented By: STAN Senna (Sennosides 8.6 Mg Tablet) 17.2 mg PO BEDTIME PRN PRN Reason: Constipation Sodium Bicarbonate (Sodium Bicarbonate 650 Mg Tablet) 1,300 mg PO BID [facility] Last Admin: 07/07/23 08:59 Dose: 1,300 mg Documented By: ALEENA Sodium Chloride (0.9 % Sodium Chloride Flush 3 Ml Syringe) 3 ml IVFLUSH QSHIFT [facility] Last Admin: 07/07/23 08:54 Dose: 3 ml Documented By: ALEENA Thiamine HCl (Thiamine Hcl 100 Mg Tablet) 100 mg PO DAILY [facility] Last Admin: 07/06/23 08:45 Dose: 100 mg Documented By: HERBERTH Labs 07/07/23 09:21 07/07/23 07:20 Labs: Laboratory Results - last 24 hr 07/06/23 07/06/23 07/06/23 10:29 10:33 21:46 MCV MCH MCHC RDW Plt Count MPV Absolute Nucleated RBC Nucleated RBC % (auto) PT 24.5 H INR 2.0 H O2 Saturation ABG pH at Pt Temp ABG pCO2 at Pt Temp ABG pO2 at Pt Temp ABG HCO3 ABG Base Excess (Actual) VBG pH 7.24 L VBG pCO2 33 VBG pO2 28 VBG HCO3 14 L VBG O2 Saturation 46.0 VBG Base Excess -11.4 Anion Gap Estim Creat Clear Calc Estimated GFR POC Glucose 176 H Fasting Glucose Calcium Magnesium Total Bilirubin Direct Bilirubin AST ALT Alkaline Phosphatase Ammonia Troponin I High Sens Total Protein Albumin Crossmatch 07/06/23 07/07/23 07/07/23 22:36 04:14 07:20 MCV 97.8 MCH 34.3 H MCHC 35.1 H RDW 21.7 H Plt Count 145 L D MPV 11.0 Absolute Nucleated RBC 0.020 H Nucleated RBC % (auto) 0.1 PT 30.1 H D INR 2.5 H O2 Saturation Not Reportable ABG pH at Pt Temp 7.28 L ABG pCO2 at Pt Temp 19 L* ABG pO2 at Pt Temp 118 H ABG HCO3 9 L ABG Base Excess (Actual) -15.7 VBG pH 7.31 L VBG pCO2 19 VBG pO2 83 VBG HCO3 9 L VBG O2 Saturation 99.0 VBG Base Excess -14.4 Anion Gap 25 H Estim Creat Clear Calc 15.6 Estimated GFR 16 POC Glucose Fasting Glucose 209 H Calcium 8.4 D Magnesium 2.0 Total Bilirubin 22.4 H Direct Bilirubin 14.5 H AST 72 H ALT 21 Alkaline Phosphatase 128 H Ammonia 30 Troponin I High Sens 3.9 Total Protein 4.9 L Albumin 3.7 Crossmatch 07/07/23 09:21 MCV MCH MCHC RDW Plt Count MPV Absolute Nucleated RBC Nucleated RBC % (auto) PT INR O2 Saturation ABG pH at Pt Temp ABG pCO2 at Pt Temp ABG pO2 at Pt Temp ABG HCO3 ABG Base Excess (Actual) VBG pH VBG pCO2 VBG pO2 VBG HCO3 VBG O2 Saturation VBG Base Excess Anion Gap Estim Creat Clear Calc Estimated GFR POC Glucose Fasting Glucose Calcium Magnesium Total Bilirubin Direct Bilirubin AST ALT Alkaline Phosphatase Ammonia 26 Troponin I High Sens Total Protein Albumin Crossmatch See Detail Microbiology Microbiology Results: Microbiology 07/04/23 17:58 Blood Culture - Preliminary Blood - Venous No growth after 48 hours. 07/04/23 17:44 Blood Culture - Preliminary Blood - Venous No growth after 48 hours. 07/04/23 15:30 Gram Stain - Final Ascites Fluid Routine Culture - Preliminary No growth to date. Anaerobic Culture - Preliminary No growth to date. 07/04/23 17:34 Urine Culture - Final Urine clean catch - Clean Catch Midstream Assessment and Plan (1) Liver cirrhosis: Status: Acute (2) Hyperbilirubinemia: Status: Acute (3) Hyperkalemia: Status: Acute (4) Acute on chronic kidney failure: Status: Acute (5) Hepatorenal syndrome: Status: Acute Plan 63F PMH alcoholic cirrhosis complicated by portal hypertension and ascites, alcohol use disorder, gout, hypertension, GERD presented with worsening fatigue and jaundice, found to have acute kidney injury and worsening liver function, overnight 07/05-07/06 - sycnopal episode, hypotension (not due ot sepsis, due to bleeding), drop in hgb, worsening mentation acute kidney injury Could be 2/2 Hepatorenal syndrome hold diuretics on Albumin and Octreotide nephrology following follow I\O, BMP acute blood loss anemia in alcoholic cirrhosis iv protonix, octreotide, prbc, ffps monitor h and h gi following acute metabolic acidosis bicarb drip, monitor Acute hyperkalemia resolved acute decompensated hepatic cirrhosis complicated by ascites, portal vein hypertension NOT a candidate for transplant stopped prednisolone for bleed paracentesis performed by IR 07/04/23 does not indicate SBP, hold on Abx - due to abd pain and distension 2L removed 07/06/23 chronic thrombocytopenia related to cirrhosis orthostatic hypotension continue midodrine alcohol use disorder in early remission. Relapse on Tuesday without any further alcohol use DVT prophylaxis-SCPs due to bleed Full code due to declining condition discussed with critical care phsycian and will transfer to ICU Quality Stroke Does the patient have a stroke diagnosis?: No VTE Prior VTE?: No VTE Risk Level:: Medical - moderate - high VTE Device Contraindication: N/A - Device Ordered VTE Drug Contraindication: Treatment Not Indicated
--- NOTE | 2023-07-07 10:38 | PC.NURSE ---
Pt transferred to ICU at ~1030. Report given to EVA Blackman
--- NOTE | 2023-07-07 11:11 | P.PNGI_ITS ---
Subjective Subjective Date of Service: 07/07/23 Interval History: c/o abd and back pain Critical Care Time (minutes): 30 Physical Exam 2 Vital Signs: Vital Signs: Last Vital Signs Temp 96.6 F L 07/07/23 11:10 Pulse 78 07/07/23 11:10 Resp 22 H 07/07/23 11:10 BP 142/73 H 07/07/23 11:10 Pulse Ox 98 07/07/23 08:00 O2 Del Method Room Air 07/07/23 08:00 BMI result Body Mass Index 24.2 Const: Other: appears uncomfortable HEENT: Other: scleral icterus GI: Other: abdomen is distended, some tenderness Objective Data Labs 07/07/23 09:21 07/07/23 07:20 Microbiology Microbiology Results: Microbiology 07/04/23 17:58 Blood - Venous Blood Culture - Preliminary No growth after 48 hours. 07/04/23 17:44 Blood - Venous Blood Culture - Preliminary No growth after 48 hours. 07/04/23 15:30 Ascites Fluid Gram Stain - Final 07/04/23 15:30 Ascites Fluid Routine Culture - Preliminary No growth to date. 07/04/23 15:30 Ascites Fluid Anaerobic Culture - Preliminary No growth to date. 07/04/23 17:34 Urine clean catch - Clean Catch Midstream Urine Culture - Final Procedures Date of Service Date of Service: 07/07/23 Progress Note: A&P Assessment and plan (1) Cirrhosis of liver with ascites: Status: Acute Plan new drop in hct without GI bleeding may reflect intraabdominal bleeding post paracentesis given abdominal distension agree with transfusion, CT scan. She indicates wanting all measures of care. Discussed with Dr Frausto. Time Spent With Patient Time: Total time managing care of this patient today ____ minutes. Quality Stroke Does the patient have a stroke diagnosis?: No VTE Prior VTE?: No VTE Risk Level:: Medical - moderate - high VTE Device Contraindication: N/A - Device Ordered VTE Drug Contraindication: Treatment Not Indicated
[2023-07-07] MEDS: fentaNYL citrate/PF 100 MCG/2 ML VIAL 50 MCG IVPUSH (11:18)
[2023-07-07] MEDS: fentaNYL citrate/PF 100 MCG/2 ML VIAL IVPUSH (11:52)
--- NOTE | 2023-07-07 14:27 | P.PNCC_ITS ---
Subjective Subjective Date of Service: 07/07/23 Interval History: 63-year-old lady with alcoholic cirrhosis with portal vein hypertension and ascites, alcohol abuse, gout admitted on 07/03/2025 and treated for acute liver failure who had a therapeutic paracentesis on 07/06/2023 with drainage after L of ascitic fluid on 07/07/2023 in a.m. noted to have 5.5 g drop in hemoglobin with hypotension. Patient was started on blood product support and transferred to intensive care unit. CT abdomen pelvis shows hemoperitoneum. Critical Care Time (minutes): 60 Physical Exam 2 Vital Signs: Vital Signs: Last Vital Signs Temp 96.6 F L 07/07/23 12:19 Pulse 83 07/07/23 14:00 Resp 15 07/07/23 13:00 BP 109/68 07/07/23 14:00 Pulse Ox 100 07/07/23 14:00 O2 Del Method Room Air 07/07/23 14:00 BMI result Body Mass Index 24.2 Const: General: no acute distress, alert, awake and other (Jaundiced) Eyes: Sclerae: scleral abnormal (Icteric) EOM: EOMs intact bilaterally Neck: Neck: Yes no lymphadenopathy, Yes trachea midline and Yes supple Resp: Effort & Inspection: normal respiratory effort and no respiratory distress Auscultation: clear to auscultation bilaterally Cardio: Rate: regular rate Rhythm: regular rhythm Heart sounds: no gallops, no murmurs and no rubs GI: Palpation (GI): Soft to palpation and Other GI palpation findings present ( Nontender) Auscultation: normal bowel sounds Extrem: General: No clubbing, No cyanosis and Yes edema (1+ bilateral) Objective Data Labs 07/07/23 09:21 07/07/23 07:20 Labs: Laboratory Results - last 24 hr 07/06/23 07/06/23 07/07/23 21:46 22:36 04:14 WBC RBC Hgb Hct MCV MCH MCHC RDW Plt Count MPV Absolute Nucleated RBC Nucleated RBC % (auto) PT INR O2 Saturation Not Reportable ABG pH at Pt Temp 7.28 L ABG pCO2 at Pt Temp 19 L* ABG pO2 at Pt Temp 118 H ABG HCO3 9 L ABG Base Excess (Actual) -15.7 VBG pH 7.31 L VBG pCO2 19 VBG pO2 83 VBG HCO3 9 L VBG O2 Saturation 99.0 VBG Base Excess -14.4 Sodium Potassium Chloride Carbon Dioxide Anion Gap BUN Creatinine Estim Creat Clear Calc Estimated GFR POC Glucose 176 H Fasting Glucose Calcium Magnesium Total Bilirubin Direct Bilirubin AST ALT Alkaline Phosphatase Ammonia Troponin I High Sens 3.9 Total Protein Albumin Blood Type Antibody Screen Crossmatch 07/07/23 07/07/23 07:20 09:21 WBC 16.9 H RBC 1.37 L D Hgb 4.7 L* D 4.6 L* Hct 13.4 L* D 12.6 L* MCV 97.8 MCH 34.3 H MCHC 35.1 H RDW 21.7 H Plt Count 145 L D MPV 11.0 Absolute Nucleated RBC 0.020 H Nucleated RBC % (auto) 0.1 PT 30.1 H D INR 2.5 H O2 Saturation ABG pH at Pt Temp ABG pCO2 at Pt Temp ABG pO2 at Pt Temp ABG HCO3 ABG Base Excess (Actual) VBG pH VBG pCO2 VBG pO2 VBG HCO3 VBG O2 Saturation VBG Base Excess Sodium 139 Potassium 3.9 Chloride 110 H Carbon Dioxide 8 L* Anion Gap 25 H BUN 46 H Creatinine 2.99 H Estim Creat Clear Calc 15.6 Estimated GFR 16 POC Glucose Fasting Glucose 209 H Calcium 8.4 D Magnesium 2.0 Total Bilirubin 22.4 H Direct Bilirubin 14.5 H AST 72 H ALT 21 Alkaline Phosphatase 128 H Ammonia 30 26 Troponin I High Sens Total Protein 4.9 L Albumin 3.7 Blood Type B Positive Antibody Screen NEGATIVE Crossmatch See Detail Microbiology Microbiology Results: Microbiology 07/04/23 15:30 Ascites Fluid Gram Stain - Final 07/04/23 15:30 Ascites Fluid Routine Culture - Final No growth after 2 days 07/04/23 15:30 Ascites Fluid Anaerobic Culture - Preliminary No growth to date. 07/04/23 17:58 Blood - Venous Blood Culture - Preliminary No growth after 48 hours. 07/04/23 17:44 Blood - Venous Blood Culture - Preliminary No growth after 48 hours. 07/04/23 17:34 Urine clean catch - Clean Catch Midstream Urine Culture - Final Progress Note: A&P Assessment and plan (1) Acute blood loss anemia: Status: Acute (2) Hemoperitoneum: Status: Acute (3) Liver cirrhosis: Status: Acute (4) Acute on chronic kidney failure: Status: Acute (5) Hepatorenal syndrome: Status: Acute Plan Assessment: 63-year-old lady admitted with liver failure with hospital course complicated by post paracentesis acute blood loss anemia and hemoperitoneum Plan: Neuro: No acute issues. Cardiac: No acute issues. Pulmonary: No acute issues. Renal: Acute renal failure secondary to hepatorenal syndrome. Continue to monitor renal indices and urine output. Endo: No acute issues. GI: Liver cirrhosis. Decompensated liver failure. Recurrent ascites. Status post therapeutic paracentesis. Control service care appreciated. ID: No acute issues Heme/Onc: Acute blood loss anemia with hemoperitoneum. Continue with blood product support. General surgery evaluation requested. Coagulopathy, status post FFP and vitamin K. Psych: No acute issues. Miscellaneous: No acute issues. Prophylaxis: Pneumatic compression Diet: NPO Critical care time spent: 90 minutes Quality Stroke Does the patient have a stroke diagnosis?: No VTE Prior VTE?: No VTE Risk Level:: Medical - moderate - high VTE Device Contraindication: N/A - Device Ordered VTE Drug Contraindication: Treatment Not Indicated
[2023-07-07] MEDS: Phytonadione (Vit K1) 10 MG in 0.9 % Sodium Chloride 50 ML 51 MG IV (14:56)
[2023-07-07 15:09] LABS: Basophils Percent Auto 0.2 % (0-2); Eosinophils Percent Auto 0.1 % (0-4); Hematocrit 23.1 % (37.0-47.0); Hemoglobin 7.9 g/dl (12.0-16.0); Imm Gran Abs Auto 0.29 X10*3/uL (0.00-0.03); Imm Gran Pct Auto 1.8 % (0.0-0.4); Lymphocytes Absolute Auto 1.2 X10*3/uL (1.2-4.9); Lymphocytes Percent Auto 7.1 % (20-40); MANUAL DIFF FLAG SCAN; Mean Corpuscular HGB Conc 34.2 g/dl (31.0-35.0); Mean Corpuscular Hemoglobin 32.8 pg (27.0-33.0); Mean Corpuscular Volume 95.9 fL (80.0-98.0); Monocytes Absolute Auto 2.2 X10*3/uL (0.1-1.2); Monocytes Percent Auto 13.2 % (2-11); NRBC Pct Auto 0.1 /100WBC (0.0-0.2); Neutrophils Absolute Auto 12.8 x10*3/uL (2.0-8.3); Neutrophils Percent Auto 77.6 % (45-73); Red Blood Count 2.41 X10*6/uL (4.20-5.50); Red Cell Distribution Width 17.4 % (11.0-16.0); SCAN SMEAR FLAG 1; White Blood Count 16.5 X10*3/uL (4.8-10.8)
[2023-07-07 15:17] LABS: Platelet Count 94 X10*3/uL (160-400)
[2023-07-07 15:36] LABS: Alanine Aminotransferase 49 U/L (0-31); Albumin Level 3.9 g/dL (3.5-5.0); Alkaline Phosphatase 132 U/L (39-117); Anion Gap 25 (12-20); Aspartate Amino Transferase 222 U/L (5-31); Bilirubin Total 23.6 mg/dL (0.0-1.0); Blood Urea Nitrogen 45 mg/dL (9-16); Calcium 8.7 mg/dL (8.4-10.2); Carbon Dioxide 10 mmol/L (22-29); Chloride 109 mmol/L (96-108); Creatinine Clr Calc Pharmacy 15.6; Estimated Glomerular Filt Rate 16; Glucose Random 192 mg/dL (60-115); Sodium 140 mmol/L (135-145); Total Protein 5.7 g/dL (6.5-8.0)
[2023-07-07 15:51] LABS: SLIDE REVIEW VERIFIED
--- NOTE | 2023-07-07 15:52 | P.CONGS_ITS ---
History of Present Illness Consult details Consult date: 07/07/23 Requesting physician: Zack Frausto Narrative: 63-year-old female patient admitted to the hospitalist service on 07/04/2023 with weakness and fatigue. She has a history of alcoholic cirrhosis complicated by portal vein hypertension, ascites, hepatic encephalopathy, acute kidney injury, alcoholic hepatitis, as well as gout, hypertension, and GERD. Patient underwent ultrasound-guided paracentesis yesterday with aspiration of approximately 2 L of yellow ascitic fluid. During the night the patient developed syncope and subsequent CT abdomen and pelvis revealed evidence of hemoperitoneum. Laboratories revealed hemoglobin of 4.6 and INR of 2.5. She was subsequently transferred to ICU for further management. Surgical consultation was requested due to the hemoperitoneum. She received 2 units PRBCs and 2 units FFP. Repeat CBC reveals a hemoglobin of 7.9. Review of Systems 2 Review of Systems: Yes Unobtainable due to mental status PMFSH Past Medical History Medical History Hepatic encephalopathy Alcoholic hepatitis Acute kidney injury Thrombocytopenia Portal venous hypertension Abdominal ascites Hyperlipidemia GERD (gastroesophageal reflux disease) Hypertension Cirrhosis Alcohol abuse Surgical History Surgical History Hx of section History of back surgery Hx of esophagogastroduodenoscopy Hx of colonoscopy Social History Social History Household Members: None Housing: Other Housing Other:: trailer Do you presently have visiting nurse or other home services: No Alcohol intake: former Patient Tobacco Use Status: Current everyday Tobacco user Tobacco use type: Cigarette Cigarette Packs Per Day: 1 Cigarettes Per Day: 1 Years Smoked: 40 Second Hand Smoke Exposure: No service: No Meds Allergies Allergy/AdvReac Type Severity Reaction Status Date / Time codeine [CODEINE] Allergy Unknown NAUSEA Verified 07/04/23 11:13 Active Medications: Current Medications Diphenhydramine HCl (Diphenhydramine Hcl 25 Mg Capsule) 25 mg PO Q6H PRN PRN Reason: Itching Last Admin: 07/06/23 17:18 Dose: 25 mg Folic Acid (Folic Acid 1 Mg Tablet) 1 mg PO DAILY JOSE ALFREDO Last Admin: 07/07/23 11:24 Dose: Not Given Dextrose (D10) 250 mls @ 750 mls/hr IV Q15M PRN PRN Reason: per Hypoglycemia Standing Ord. Last Infusion: 07/04/23 14:49 Dose: Infused Sodium Bicarbonate 150 meq/ (Dextrose) 1,000 mls @ 100 mls/hr IV .Q10H [facility] Last Admin: 07/07/23 09:14 Dose: 100 mls/hr Lactulose (Lactulose 20 Gm/30 Ml Solution) 20 gm PO DAILY [facility] Last Admin: 07/07/23 11:24 Dose: Not Given Magnesium Oxide (Magnesium Oxide 400 Mg Tablet) 400 mg PO DAILY [facility] Last Admin: 07/07/23 11:24 Dose: Not Given Melatonin (Melatonin 3 Mg Tablet) 6 mg PO BEDTIME PRN PRN Reason: Insomnia Last Admin: 07/06/23 19:57 Dose: 6 mg Midodrine (Midodrine Hcl 5 Mg Tablet) 5 mg PO TID [facility] Last Admin: 07/07/23 14:55 Dose: Not Given Octreotide Acetate (Octreotide Acetate 100 Mcg/Ml Ampul) 100 mcg IVPUSH Q8H [facility] Last Admin: 07/07/23 08:53 Dose: 100 mcg Ondansetron HCl (Ondansetron Hcl 4 Mg/2 Ml Vial) 4 mg IVPUSH Q8H PRN PRN Reason: Nausea and Vomiting Last Admin: 07/07/23 03:30 Dose: 4 mg Pantoprazole Sodium (Pantoprazole Sodium 40 Mg/10 Ml Vial) 40 mg IVPUSH BID@0630,1630 [facility] Last Admin: 07/07/23 08:53 Dose: 40 mg Rifaximin (Rifaximin 550 Mg Tablet) 550 mg PO BID [facility] Last Admin: 07/07/23 11:25 Dose: Not Given Senna (Sennosides 8.6 Mg Tablet) 17.2 mg PO BEDTIME PRN PRN Reason: Constipation Sodium Chloride (0.9 % Sodium Chloride Flush 3 Ml Syringe) 3 ml IVFLUSH QSHIFT [facility] Last Admin: 07/07/23 08:54 Dose: 3 ml Thiamine HCl (Thiamine Hcl 100 Mg Tablet) 100 mg PO DAILY [facility] Last Admin: 07/07/23 11:25 Dose: Not Given Home Medications ?Medication ?Instructions ?Recorded ?Confirmed ?Last Taken ?Type furosemide 20 mg tablet 20 mg PO DAILY 07/04/23 07/04/23 07/03/23 History rifaximin 550 mg tablet 550 mg PO BID 07/04/23 07/04/23 07/03/23 History Physical Exam 2 Vital Signs: Vital Signs: Last Vital Signs Temp 96.9 F 07/07/23 15:00 Pulse 77 07/07/23 15:00 Resp 11 L 07/07/23 15:00 BP 92/56 L 07/07/23 15:00 Pulse Ox 100 07/07/23 15:00 O2 Del Method Room Air 07/07/23 15:00 BMI result Body Mass Index 24.2 Const: General: patient obtunded Orientation/consciousness: patient obtunded Eyes: Other: Scleral icterus Resp: Effort & Inspection: normal respiratory effort GI: Other: Abdomen distended but nontender to palpation, no rebound or guarding Skin: Other: Jaundice Neuro: General: patient obtunded Extrem: General: Yes edema Results Labs 07/07/23 15:03 07/07/23 15:03 Labs: Abnormal lab results 07/06/23 07/06/23 07/07/23 Range/Units 21:46 22:36 04:14 WBC (4.8-10.8) X10*3/uL RBC (4.20-5.50) X10*6/uL Hgb (12.0-16.0) g/dl Hct (37.0-47.0) % MCH (27.0-33.0) pg MCHC (31.0-35.0) g/dl RDW (11.0-16.0) % Plt Count (160-400) X10*3/uL Immature Gran % (Auto) (0.0-0.4) % Neut % (Auto) (45-73) % Lymph % (Auto) (20-40) % [place] % (Auto) (2-11) % [place] # (Auto) (0.1-1.2) X10*3/uL Abs Immat Gran (auto) (0.00-0.03) X10*3/uL Absolute Neuts (auto) (2.0-8.3) x10*3/uL Absolute Nucleated RBC (0.0-0.012) X10*3/uL PT (11.1-13.3) SEC INR (0.9-1.1) ABG pH at Pt Temp 7.28 L (7.35-7.45) ABG pCO2 at Pt Temp 19 L* (32-45) mmHg ABG pO2 at Pt Temp 118 H (83-108) mmHg ABG HCO3 9 L (22-26) mmol/L VBG pH 7.31 L (7.32-7.43) VBG HCO3 9 L (22-26) mmol/L Chloride (96-108) mmol/L Carbon Dioxide (22-29) mmol/L Anion Gap (12-20) BUN (9-16) mg/dL Creatinine (0.5-1.4) mg/dL POC Glucose 176 H (60-115) mg/dL Random Glucose (60-115) mg/dL Fasting Glucose (60-99) mg/dL Total Bilirubin (0.0-1.0) mg/dL Direct Bilirubin (0.0-0.5) mg/dL AST (5-31) U/L ALT (0-31) U/L Alkaline Phosphatase (39-117) U/L Total Protein (6.5-8.0) g/dL Crossmatch 07/07/23 07/07/23 07/07/23 Range/Units 07:20 09:21 15:03 WBC 16.9 H 16.5 H (4.8-10.8) X10*3/uL RBC 1.37 L D 2.41 L D (4.20-5.50) X10*6/uL Hgb 4.7 L* D 4.6 L* 7.9 L D (12.0-16.0) g/dl Hct 13.4 L* D 12.6 L* 23.1 L D (37.0-47.0) % MCH 34.3 H (27.0-33.0) pg MCHC 35.1 H (31.0-35.0) g/dl RDW 21.7 H 17.4 H (11.0-16.0) % Plt Count 145 L D 94 L D (160-400) X10*3/uL Immature Gran % (Auto) 1.8 H (0.0-0.4) % Neut % (Auto) 77.6 H (45-73) % Lymph % (Auto) 7.1 L (20-40) % [place] % (Auto) 13.2 H (2-11) % [place] # (Auto) 2.2 H (0.1-1.2) X10*3/uL Abs Immat Gran (auto) 0.29 H (0.00-0.03) X10*3/uL Absolute Neuts (auto) 12.8 H (2.0-8.3) x10*3/uL Absolute Nucleated RBC 0.020 H 0.020 H (0.0-0.012) X10*3/uL PT 30.1 H D (11.1-13.3) SEC INR 2.5 H (0.9-1.1) ABG pH at Pt Temp (7.35-7.45) ABG pCO2 at Pt Temp (32-45) mmHg ABG pO2 at Pt Temp (83-108) mmHg ABG HCO3 (22-26) mmol/L VBG pH (7.32-7.43) VBG HCO3 (22-26) mmol/L Chloride 110 H 109 H (96-108) mmol/L Carbon Dioxide 8 L* 10 L* D (22-29) mmol/L Anion Gap 25 H 25 H (12-20) BUN 46 H 45 H (9-16) mg/dL Creatinine 2.99 H 2.99 H (0.5-1.4) mg/dL POC Glucose (60-115) mg/dL Random Glucose 192 H (60-115) mg/dL Fasting Glucose 209 H (60-99) mg/dL Total Bilirubin 22.4 H 23.6 H (0.0-1.0) mg/dL Direct Bilirubin 14.5 H (0.0-0.5) mg/dL AST 72 H 222 H (5-31) U/L ALT 49 H (0-31) U/L Alkaline Phosphatase 128 H 132 H (39-117) U/L Total Protein 4.9 L 5.7 L (6.5-8.0) g/dL Crossmatch See Detail Short CBC 07/07/23 07/07/23 07/07/23 Range/Units 07:20 09:21 15:03 WBC 16.9 H 16.5 H (4.8-10.8) X10*3/uL Hgb 4.7 L* D 4.6 L* 7.9 L D (12.0-16.0) g/dl Hct 13.4 L* D 12.6 L* 23.1 L D (37.0-47.0) % Plt Count 145 L D 94 L D (160-400) X10*3/uL BMP 07/07/23 07/07/23 07:20 15:03 Sodium 139 140 Potassium 3.9 4.0 Chloride 110 H 109 H Carbon Dioxide 8 L* 10 L* D BUN 46 H 45 H Creatinine 2.99 H 2.99 H Calcium 8.4 D 8.7 Liver Function 07/07/23 07/07/23 Range/Units 07:20 15:03 Total Bilirubin 22.4 H 23.6 H (0.0-1.0) mg/dL Direct Bilirubin 14.5 H (0.0-0.5) mg/dL AST 72 H 222 H (5-31) U/L ALT 21 49 H (0-31) U/L Alkaline Phosphatase 128 H 132 H (39-117) U/L Albumin 3.7 3.9 (3.5-5.0) g/dL Urine 07/04/23 Range/Units 16:50 Urine Color Dark Yellow Urine Appearance Cloudy Urine pH 5.5 (5.0-9.0) Ur Specific [place] 1.020 (1.005-1.025) Urine Protein 30 (1+) H (Neg-Trace) mg/dL Urine Glucose (UA) Negative (Negative) mg/dL All other labs normal. Assessment and Plan (1) Hemoperitoneum: Status: Acute (2) Cirrhosis of liver with ascites: Status: Acute (3) Jaundice: Status: Acute Plan 63-year-old female patient with alcoholic cirrhosis, ascites, encephalopathy, and hemoperitoneum following ultrasound-guided paracentesis. Patient is a poor surgical risk and would not tolerate general anesthesia. Recommend correction of coagulation parameters. Will monitor patient's progress. Procedures Date of Service Date of Service: 07/07/23
--- NOTE | 2023-07-07 16:10 | P.PNNP_ITS ---
Subjective Subjective Date of Service: 07/07/23 Interval history: 63-year-old lady with alcoholic cirrhosis with portal vein hypertension and ascites, alcohol abuse, gout admitted on 07/03/2025 and treated for acute liver failure who had a therapeutic paracentesis on 07/06/2023 with drainage after L of ascitic fluid on 07/07/2023 in a.m. noted to have 5.5 g drop in hemoglobin with hypotension. Patient was started on blood product support and transferred to intensive care unit. CT abdomen pelvis shows hemoperitoneum. Physical Exam 2 Vital Signs: Vital Signs: Last Vital Signs Temp 97.6 F 07/07/23 16:00 Pulse 66 07/07/23 16:00 Resp 14 07/07/23 16:00 BP 97/42 L 07/07/23 16:00 Pulse Ox 100 07/07/23 16:00 O2 Del Method Room Air 07/07/23 16:00 BMI result Body Mass Index 24.2 Const: General: comfortable and no acute distress HEENT: Head: Yes normocephalic Mouth: Normal oral and palatal mucosa present Eyes: EOM: EOMs intact bilaterally Neck: Neck: Yes supple Resp: Auscultation: clear to auscultation bilaterally Cardio: Jugular venous distension: no JVD Rate: regular rate Heart sounds: Murmur heart sound present GI: Palpation (GI): Soft to palpation Auscultation: normal bowel sounds : General: Yes no CVA tenderness Back/Spine/Pelvis: Back: no CVA tenderness Skin: General skin exam: no rashes or lesions noted Neuro: General: moves all extremities Objective Data Labs 07/07/23 15:03 07/07/23 15:03 Labs: Laboratory Results - last 24 hr 07/06/23 07/06/23 07/07/23 21:46 22:36 04:14 WBC RBC Hgb Hct MCV MCH MCHC RDW Plt Count MPV Immature Gran % (Auto) Neut % (Auto) Lymph % (Auto) [place] % (Auto) Eos % (Auto) Baso % (Auto) Lymph # (Auto) [place] # (Auto) Eos # (Auto) Baso # (Auto) Abs Immat Gran (auto) Absolute Neuts (auto) Absolute Nucleated RBC Nucleated RBC % (auto) Smear Tech's Comments Smear Path Review PT INR O2 Saturation Not Reportable ABG pH at Pt Temp 7.28 L ABG pCO2 at Pt Temp 19 L* ABG pO2 at Pt Temp 118 H ABG HCO3 9 L ABG Base Excess (Actual) -15.7 VBG pH 7.31 L VBG pCO2 19 VBG pO2 83 VBG HCO3 9 L VBG O2 Saturation 99.0 VBG Base Excess -14.4 Sodium Potassium Chloride Carbon Dioxide Anion Gap BUN Creatinine Estim Creat Clear Calc Estimated GFR POC Glucose 176 H Random Glucose Fasting Glucose Calcium Magnesium Total Bilirubin Direct Bilirubin AST ALT Alkaline Phosphatase Ammonia Troponin I High Sens 3.9 Total Protein Albumin Blood Type Antibody Screen Crossmatch 07/07/23 07/07/23 07/07/23 07:20 09:21 15:03 WBC 16.9 H 16.5 H RBC 1.37 L D 2.41 L D Hgb 4.7 L* D 4.6 L* 7.9 L D Hct 13.4 L* D 12.6 L* 23.1 L D MCV 97.8 95.9 MCH 34.3 H 32.8 MCHC 35.1 H 34.2 RDW 21.7 H 17.4 H Plt Count 145 L D 94 L D MPV 11.0 12.0 Immature Gran % (Auto) 1.8 H Neut % (Auto) 77.6 H Lymph % (Auto) 7.1 L [place] % (Auto) 13.2 H Eos % (Auto) 0.1 Baso % (Auto) 0.2 Lymph # (Auto) 1.2 [place] # (Auto) 2.2 H Eos # (Auto) 0.0 Baso # (Auto) 0.0 Abs Immat Gran (auto) 0.29 H Absolute Neuts (auto) 12.8 H Absolute Nucleated RBC 0.020 H 0.020 H Nucleated RBC % (auto) 0.1 0.1 Smear Tech's Comments VERIFIED Smear Path Review SEE NOTE PT 30.1 H D INR 2.5 H O2 Saturation ABG pH at Pt Temp ABG pCO2 at Pt Temp ABG pO2 at Pt Temp ABG HCO3 ABG Base Excess (Actual) VBG pH VBG pCO2 VBG pO2 VBG HCO3 VBG O2 Saturation VBG Base Excess Sodium 139 140 Potassium 3.9 4.0 Chloride 110 H 109 H Carbon Dioxide 8 L* 10 L* D Anion Gap 25 H 25 H BUN 46 H 45 H Creatinine 2.99 H 2.99 H Estim Creat Clear Calc 15.6 15.6 Estimated GFR 16 16 POC Glucose Random Glucose 192 H Fasting Glucose 209 H Calcium 8.4 D 8.7 Magnesium 2.0 Total Bilirubin 22.4 H 23.6 H Direct Bilirubin 14.5 H AST 72 H 222 H ALT 21 49 H Alkaline Phosphatase 128 H 132 H Ammonia 30 26 Troponin I High Sens Total Protein 4.9 L 5.7 L Albumin 3.7 3.9 Blood Type B Positive Antibody Screen NEGATIVE Crossmatch See Detail Microbiology Microbiology Results: Microbiology 07/04/23 15:30 Ascites Fluid Gram Stain - Final 07/04/23 15:30 Ascites Fluid Routine Culture - Final No growth after 2 days 07/04/23 15:30 Ascites Fluid Anaerobic Culture - Preliminary No growth to date. 07/04/23 17:58 Blood - Venous Blood Culture - Preliminary No growth after 48 hours. 07/04/23 17:44 Blood - Venous Blood Culture - Preliminary No growth after 48 hours. 07/04/23 17:34 Urine clean catch - Clean Catch Midstream Urine Culture - Final Procedures Date of Service Date of Service: 07/07/23 Assessment & Plan Assessment and plan (1) Acute on chronic kidney failure: Status: Acute Plan Acute Kidney Injury due to tubular injury Has HRS 2 at baseline Renal function has worsened following the hemorrhage. Developed superimposed metabolic acidosis on top of respiratory alkalosis. No absolute indication for renal replacement yet Concur with current medical management. Transfuse PRBCs as needed and maintain hemodynamic stability. Monitor urine output. If the renal function worsens or if he develops further electrolyte abnormality she would require renal replacement therapy She will follow along with the team Prognosis guarded Time Spent With Patient Time: Total time managing care of this patient today ____ minutes. Progress Note: Quality Stroke Does the patient have a stroke diagnosis?: No
[2023-07-07] MEDS: Albumin Human 25 % 100 ML IV (20:21)
[2023-07-07 21:21] LABS: MANUAL DIFF FLAG NO
[2023-07-07 21:23] LABS: Basophils Percent Auto 0.1 % (0-2); Eosinophils Percent Auto 0.2 % (0-4); Imm Gran Abs Auto 0.15 X10*3/uL (0.00-0.03); Imm Gran Pct Auto 1.2 % (0.0-0.4); Lymphocytes Absolute Auto 1.4 X10*3/uL (1.2-4.9); Lymphocytes Percent Auto 10.6 % (20-40); Mean Corpuscular HGB Conc 36.5 g/dl (31.0-35.0); Mean Corpuscular Volume 90.5 fL (80.0-98.0); Mean Platelet Volume 10.7 fL (9.4-12.3); Monocytes Absolute Auto 1.5 X10*3/uL (0.1-1.2); Monocytes Percent Auto 11.3 % (2-11); Neutrophils Percent Auto 76.6 % (45-73); Red Cell Distribution Width 17.5 % (11.0-16.0)
[2023-07-07 21:24] LABS: Platelet Count 61 X10*3/uL (160-400)
[2023-07-07 21:25] LABS: Hematocrit 18.1 % (37.0-47.0); Hemoglobin 6.6 g/dl (12.0-16.0)
[2023-07-07 22:10] LABS: Albumin Level 3.8 g/dL (3.5-5.0); Anion Gap 21 (12-20); Blood Urea Nitrogen 42 mg/dL (9-16); Calcium 8.5 mg/dL (8.4-10.2); Carbon Dioxide 18 mmol/L (22-29); Chloride 106 mmol/L (96-108); Creatinine Clr Calc Pharmacy 12.9; Estimated Glomerular Filt Rate 13; Glucose Random 200 mg/dL (60-115); Phosphorus 4.6 mg/dL (2.7-4.5); Potassium 3.7 mmol/L (3.3-5.1); Sodium 141 mmol/L (135-145)
[2023-07-08] VITALS (26 sets, daily range): BP systolic 92–124; BP diastolic 44–79; PULSE 56–78; RESP 8–19; TEMP 36.4–37.2; O2SAT 94–99
[2023-07-08 05:03] LABS: VBG Base Excess -1.3 mmol/L; VBG HCO3 22 mmol/L (22-26); VBG pCO2 33 mmHg; VBG pH 7.42 (7.32-7.43); VBG pO2 51 mmHg
[2023-07-08 05:05] LABS: MANUAL DIFF FLAG NO
[2023-07-08 05:08] LABS: Basophils Percent Auto 0.1 % (0-2); Eosinophils Absolute Auto 0.1 X10*3/uL (0.0-0.4); Eosinophils Percent Auto 0.5 % (0-4); Hematocrit 22.1 % (37.0-47.0); Hemoglobin 8.2 g/dl (12.0-16.0); Imm Gran Pct Auto 0.9 % (0.0-0.4); Lymphocytes Absolute Auto 1.3 X10*3/uL (1.2-4.9); Mean Corpuscular HGB Conc 37.1 g/dl (31.0-35.0); Mean Corpuscular Hemoglobin 32.8 pg (27.0-33.0); Mean Corpuscular Volume 88.4 fL (80.0-98.0); Mean Platelet Volume 11.2 fL (9.4-12.3); Monocytes Absolute Auto 1.1 X10*3/uL (0.1-1.2); Monocytes Percent Auto 9.9 % (2-11); Neutrophils Absolute Auto 8.2 x10*3/uL (2.0-8.3); Neutrophils Percent Auto 76.6 % (45-73); Red Cell Distribution Width 16.1 % (11.0-16.0); White Blood Count 10.7 X10*3/uL (4.8-10.8)
[2023-07-08 05:08] LABS: Venous Blood Gas Refer to POC result
[2023-07-08 05:09] LABS: Platelet Count 53 X10*3/uL (160-400)
[2023-07-08 05:15] LABS: INTERNATIONAL NORM RATIO 2.1 (0.9-1.1); Prothrombin Time 25.6 SEC (11.1-13.3)
[2023-07-08 05:24] LABS: Alanine Aminotransferase 86 U/L (0-31); Albumin Level 3.5 g/dL (3.5-5.0); Alkaline Phosphatase 124 U/L (39-117); Anion Gap 18 (12-20); Aspartate Amino Transferase 378 U/L (5-31); Bilirubin Total 21.1 mg/dL (0.0-1.0); Blood Urea Nitrogen 47 mg/dL (9-16); Calcium 8.2 mg/dL (8.4-10.2); Carbon Dioxide 21 mmol/L (22-29); Chloride 105 mmol/L (96-108); Creatinine Clr Calc Pharmacy 12.5; Estimated Glomerular Filt Rate 12; Glucose Random 177 mg/dL (60-115); Magnesium 1.8 mg/dL (1.6-2.6); Phosphorus 4.2 mg/dL (2.7-4.5); Potassium 3.5 mmol/L (3.3-5.1); Sodium 140 mmol/L (135-145); Total Protein 4.8 g/dL (6.5-8.0)
[2023-07-08] MEDS: Pantoprazole Sodium 40 MG/10 ML VIAL IVPUSH ×2 (06:17→15:57)
[2023-07-08] MEDS: Potassium Chloride/H20 10 MEQ/100 ML PIGGYBACK 100 MEQ IV ×2 (06:17→07:41)
[2023-07-08] MEDS: Calcium Gluconate/NaCl,Iso-Osm 1 GM/50 ML PLAST..BAG IV (06:24)
[2023-07-08] MEDS: Lactulose 20 GM/30 ML SOLUTION PO (09:19)
[2023-07-08] MEDS: rifAXIMin 550 MG TABLET PO ×2 (09:19→20:02)
[2023-07-08] MEDS: Midodrine HCl 5 MG TABLET PO ×3 (09:19→20:02)
[2023-07-08] MEDS: Folic Acid 1 MG TABLET PO (09:19)
[2023-07-08] MEDS: Thiamine HCL 100 MG TABLET PO (09:19)
[2023-07-08] MEDS: Magnesium Oxide 400 MG TABLET PO (09:19)
[2023-07-08] MEDS: 0.9 % Sodium Chloride Flush 3 ML SYRINGE IVFLUSH ×3 (09:20→23:01)
[2023-07-08] MEDS: Sodium Bicarbonate 8.4% 150 MEQ in Dextrose 5 % 850 ML 100 MEQ IV ×2 (09:53→20:01)
--- NOTE | 2023-07-08 10:48 | P.PNCC_ITS ---
Subjective Subjective Date of Service: 07/08/23 Interval History: 63-year-old lady with alcoholic cirrhosis with portal vein hypertension and ascites, alcohol abuse, gout admitted on 07/03/2025 and treated for acute liver failure who had a therapeutic paracentesis on 07/06/2023 with drainage of 2 L of ascitic fluid on 07/07/2023 in a.m. noted to have 5.5 g drop in hemoglobin with hypotension. Patient was started on blood product support and transferred to intensive care unit. CT abdomen pelvis shows hemoperitoneum. Patient evaluated by General surgery with no operative intervention deemed necessary at that time. Patient being monitored in intensive care unit. Still with a drop of hemoglobin overnight requiring additional transfusion of 1 unit of packed red blood cells. Also, with development of anuria. Critical Care Time (minutes): 45 Physical Exam 2 Vital Signs: Vital Signs: Last Vital Signs Temp 97.6 F 07/08/23 08:00 Pulse 67 07/08/23 10:00 Resp 12 07/08/23 10:00 BP 104/56 L 07/08/23 10:00 Pulse Ox 98 07/08/23 10:00 O2 Del Method Room Air 07/08/23 10:00 BMI result Body Mass Index 24.2 Const: General: no acute distress, alert, awake and other (Jaundiced) Eyes: Sclerae: scleral abnormal (Icteric) EOM: EOMs intact bilaterally Neck: Neck: Yes no lymphadenopathy, Yes trachea midline and Yes supple Resp: Effort & Inspection: normal respiratory effort and no respiratory distress Auscultation: clear to auscultation bilaterally Cardio: Rate: regular rate Rhythm: regular rhythm Heart sounds: no gallops, no murmurs and no rubs GI: Palpation (GI): Soft to palpation and Other GI palpation findings present ( Nontender) Auscultation: normal bowel sounds Extrem: General: No clubbing, No cyanosis and Yes edema (1+ bilateral) Objective Data Labs 07/08/23 04:57 07/08/23 04:57 Labs: Laboratory Results - last 24 hr 07/07/23 07/07/23 07/07/23 07:20 09:21 15:03 WBC 16.5 H RBC 2.41 L D Hgb 7.9 L D Hct 23.1 L D MCV 95.9 MCH 32.8 MCHC 34.2 RDW 17.4 H Plt Count 94 L D MPV 12.0 Immature Gran % (Auto) 1.8 H Neut % (Auto) 77.6 H Lymph % (Auto) 7.1 L [place] % (Auto) 13.2 H Eos % (Auto) 0.1 Baso % (Auto) 0.2 Lymph # (Auto) 1.2 [place] # (Auto) 2.2 H Eos # (Auto) 0.0 Baso # (Auto) 0.0 Abs Immat Gran (auto) 0.29 H Absolute Neuts (auto) 12.8 H Absolute Nucleated RBC 0.020 H Nucleated RBC % (auto) 0.1 Smear Tech's Comments VERIFIED Smear Path Review SEE NOTE PT INR VBG pH VBG pCO2 VBG pO2 VBG HCO3 VBG O2 Saturation VBG Base Excess Sodium 140 Potassium 4.0 Chloride 109 H Carbon Dioxide 10 L* D Anion Gap 25 H BUN 45 H Creatinine 2.99 H Estim Creat Clear Calc 15.6 Estimated GFR 16 Random Glucose 192 H Calcium 8.7 Phosphorus Magnesium Total Bilirubin 23.6 H AST 222 H ALT 49 H Alkaline Phosphatase 132 H Total Protein 5.7 L Albumin 3.9 Blood Type B Positive Antibody Screen NEGATIVE Crossmatch See Detail 07/07/23 07/08/23 07/08/23 21:11 04:55 04:57 WBC 13.0 H 10.7 RBC 2.00 L 2.50 L D Hgb 6.6 L* 8.2 L D Hct 18.1 L* D 22.1 L D MCV 90.5 D 88.4 MCH 33.0 32.8 MCHC 36.5 H 37.1 H RDW 17.5 H 16.1 H Plt Count 61 L D 53 L MPV 10.7 11.2 Immature Gran % (Auto) 1.2 H 0.9 H Neut % (Auto) 76.6 H 76.6 H Lymph % (Auto) 10.6 L 12.0 L [place] % (Auto) 11.3 H 9.9 Eos % (Auto) 0.2 0.5 Baso % (Auto) 0.1 0.1 Lymph # (Auto) 1.4 1.3 [place] # (Auto) 1.5 H 1.1 Eos # (Auto) 0.0 0.1 Baso # (Auto) 0.0 0.0 Abs Immat Gran (auto) 0.15 H 0.10 H Absolute Neuts (auto) 10.0 H 8.2 Absolute Nucleated RBC 0.000 0.000 Nucleated RBC % (auto) 0.0 0.0 Smear Tech's Comments Smear Path Review PT 25.6 H INR 2.1 H VBG pH 7.42 VBG pCO2 33 VBG pO2 51 VBG HCO3 22 VBG O2 Saturation 88.0 VBG Base Excess -1.3 Sodium 141 140 Potassium 3.7 3.5 Chloride 106 105 Carbon Dioxide 18 L 21 L Anion Gap 21 H 18 BUN 42 H 47 H Creatinine 3.62 H 3.76 H Estim Creat Clear Calc 12.9 12.5 Estimated GFR 13 12 Random Glucose 200 H 177 H Calcium 8.5 8.2 L Phosphorus 4.6 H 4.2 Magnesium 2.0 1.8 Total Bilirubin 21.1 H AST 378 H ALT 86 H Alkaline Phosphatase 124 H Total Protein 4.8 L Albumin 3.8 3.5 Blood Type Antibody Screen Crossmatch Microbiology Microbiology Results: Microbiology 07/04/23 15:30 Ascites Fluid Gram Stain - Final 07/04/23 15:30 Ascites Fluid Routine Culture - Final No growth after 2 days 07/04/23 15:30 Ascites Fluid Anaerobic Culture - Preliminary No growth to date. 07/04/23 17:58 Blood - Venous Blood Culture - Preliminary No growth after 48 hours. 07/04/23 17:44 Blood - Venous Blood Culture - Preliminary No growth after 48 hours. 07/04/23 17:34 Urine clean catch - Clean Catch Midstream Urine Culture - Final Progress Note: A&P Assessment and plan (1) Hemoperitoneum: Status: Acute (2) Acute blood loss anemia: Status: Acute (3) Acute liver failure: Status: Acute (4) Cirrhosis of liver with ascites: Status: Acute (5) Hepatorenal syndrome: Status: Acute (6) Acute kidney injury: Status: Acute Plan Assessment: 63-year-old lady admitted with liver failure with hospital course complicated by post paracentesis acute blood loss anemia and hemoperitoneum Plan: Neuro: No acute issues. Cardiac: No acute issues. Pulmonary: No acute issues. Renal: Acute renal failure secondary to hepatorenal syndrome. Continue to monitor renal indices and urine output. Nephrology service care appreciated. Endo: No acute issues. GI: Liver cirrhosis. Decompensated liver failure. Recurrent ascites. Status post therapeutic paracentesis. Gastroenterology service care appreciated. ID: No acute issues Heme/Onc: Acute blood loss anemia with hemoperitoneum. Required additional 1 unit of packed red blood cells. Continue with blood product support. General surgery service care appreciated. Coagulopathy, status post FFP and vitamin K. Psych: No acute issues. Miscellaneous: No acute issues. Prophylaxis: Pneumatic compression Diet: Low potassium Critical care time spent: 45 minutes Quality Stroke Does the patient have a stroke diagnosis?: No VTE Prior VTE?: No VTE Risk Level:: Medical - moderate - high VTE Device Contraindication: N/A - Device Ordered VTE Drug Contraindication: Treatment Not Indicated
--- NOTE | 2023-07-08 11:29 | P.PNGI_ITS ---
Subjective Subjective Date of Service: 07/08/23 Interval History: feels better today Critical Care Time (minutes): 30 Physical Exam 2 Vital Signs: Vital Signs: Last Vital Signs Temp 97.6 F 07/08/23 08:00 Pulse 67 07/08/23 10:00 Resp 12 07/08/23 10:00 BP 104/56 L 07/08/23 10:00 Pulse Ox 98 07/08/23 10:00 O2 Del Method Room Air 07/08/23 10:00 BMI result Body Mass Index 24.2 Const: Other: jaundiced GI: Other: abdomen is distended, nontender Objective Data Labs 07/08/23 04:57 07/08/23 04:57 Microbiology Microbiology Results: Microbiology 07/04/23 15:30 Ascites Fluid Gram Stain - Final 07/04/23 15:30 Ascites Fluid Routine Culture - Final No growth after 2 days 07/04/23 15:30 Ascites Fluid Anaerobic Culture - Preliminary No growth to date. 07/04/23 17:58 Blood - Venous Blood Culture - Preliminary No growth after 48 hours. 07/04/23 17:44 Blood - Venous Blood Culture - Preliminary No growth after 48 hours. 07/04/23 17:34 Urine clean catch - Clean Catch Midstream Urine Culture - Final Procedures Date of Service Date of Service: 07/08/23 Progress Note: A&P Time Spent With Patient Time: Total time managing care of this patient today ____ minutes. Quality Stroke Does the patient have a stroke diagnosis?: No VTE Prior VTE?: No VTE Risk Level:: Medical - moderate - high VTE Device Contraindication: N/A - Device Ordered VTE Drug Contraindication: Treatment Not Indicated
--- NOTE | 2023-07-08 16:17 | MHC.CM.PN ---
PT REMAINS IN ICU, BEING FOLLOWED BY NEPHROLOGY AND GI. CM WILL CONTINUE TO FOLLOW FOR DC PLANNING.
--- NOTE | 2023-07-08 19:25 | P.PNNP_ITS ---
Subjective Subjective Date of Service: 07/08/23 Interval history: Events noted;All recent data reviewed; UO poor; D/W ICU Attending Physical Exam 2 Vital Signs: Vital Signs: Last Vital Signs Temp 98.9 F 07/08/23 17:57 Pulse 60 07/08/23 19:00 Resp 10 L 07/08/23 19:00 BP 98/56 L 07/08/23 19:00 Pulse Ox 96 07/08/23 19:00 O2 Del Method Room Air 07/08/23 19:00 BMI result Body Mass Index 24.2 Const: General: no acute distress Eyes: EOM: EOMs intact bilaterally Neck: Neck: Yes supple Resp: Auscultation: diminished lung sounds Cardio: Rate: regular rate GI: Auscultation: normal bowel sounds Neuro: General: moves all extremities Objective Data Labs 07/08/23 04:57 07/08/23 04:57 Labs: Laboratory Results - last 24 hr 07/07/23 07/07/23 07/08/23 09:21 21:11 04:55 WBC 13.0 H RBC 2.00 L Hgb 6.6 L* Hct 18.1 L* D MCV 90.5 D MCH 33.0 MCHC 36.5 H RDW 17.5 H Plt Count 61 L D MPV 10.7 Immature Gran % (Auto) 1.2 H Neut % (Auto) 76.6 H Lymph % (Auto) 10.6 L [place] % (Auto) 11.3 H Eos % (Auto) 0.2 Baso % (Auto) 0.1 Lymph # (Auto) 1.4 [place] # (Auto) 1.5 H Eos # (Auto) 0.0 Baso # (Auto) 0.0 Abs Immat Gran (auto) 0.15 H Absolute Neuts (auto) 10.0 H Absolute Nucleated RBC 0.000 Nucleated RBC % (auto) 0.0 PT INR VBG pH 7.42 VBG pCO2 33 VBG pO2 51 VBG HCO3 22 VBG O2 Saturation 88.0 VBG Base Excess -1.3 Sodium 141 Potassium 3.7 Chloride 106 Carbon Dioxide 18 L Anion Gap 21 H BUN 42 H Creatinine 3.62 H Estim Creat Clear Calc 12.9 Estimated GFR 13 Random Glucose 200 H Calcium 8.5 Phosphorus 4.6 H Magnesium 2.0 Total Bilirubin AST ALT Alkaline Phosphatase Total Protein Albumin 3.8 Blood Type B Positive Antibody Screen NEGATIVE Crossmatch See Detail 07/08/23 04:57 WBC 10.7 RBC 2.50 L D Hgb 8.2 L D Hct 22.1 L D MCV 88.4 MCH 32.8 MCHC 37.1 H RDW 16.1 H Plt Count 53 L MPV 11.2 Immature Gran % (Auto) 0.9 H Neut % (Auto) 76.6 H Lymph % (Auto) 12.0 L [place] % (Auto) 9.9 Eos % (Auto) 0.5 Baso % (Auto) 0.1 Lymph # (Auto) 1.3 [place] # (Auto) 1.1 Eos # (Auto) 0.1 Baso # (Auto) 0.0 Abs Immat Gran (auto) 0.10 H Absolute Neuts (auto) 8.2 Absolute Nucleated RBC 0.000 Nucleated RBC % (auto) 0.0 PT 25.6 H INR 2.1 H VBG pH VBG pCO2 VBG pO2 VBG HCO3 VBG O2 Saturation VBG Base Excess Sodium 140 Potassium 3.5 Chloride 105 Carbon Dioxide 21 L Anion Gap 18 BUN 47 H Creatinine 3.76 H Estim Creat Clear Calc 12.5 Estimated GFR 12 Random Glucose 177 H Calcium 8.2 L Phosphorus 4.2 Magnesium 1.8 Total Bilirubin 21.1 H AST 378 H ALT 86 H Alkaline Phosphatase 124 H Total Protein 4.8 L Albumin 3.5 Blood Type Antibody Screen Crossmatch Microbiology Microbiology Results: Microbiology 07/04/23 15:30 Ascites Fluid Gram Stain - Final 07/04/23 15:30 Ascites Fluid Routine Culture - Final No growth after 2 days 07/04/23 15:30 Ascites Fluid Anaerobic Culture - Preliminary No growth to date. 07/04/23 17:58 Blood - Venous Blood Culture - Preliminary No growth after 48 hours. 07/04/23 17:44 Blood - Venous Blood Culture - Preliminary No growth after 48 hours. 07/04/23 17:34 Urine clean catch - Clean Catch Midstream Urine Culture - Final Procedures Date of Service Date of Service: 07/08/23 Assessment & Plan Assessment and plan (1) Acute kidney injury: Status: Acute Assessment and Plan: Acute Kidney Injury due to tubular injury Has HRS 2 at baseline; Serum creatinine worse; UO poor Developed superimposed metabolic acidosis on top of respiratory alkalosis. Likely will need renal replacement soon Continue current supportive care for now Progress Note: Quality Stroke Does the patient have a stroke diagnosis?: No
[2023-07-09] VITALS (16 sets, daily range): BP systolic 97–128; BP diastolic 45–78; PULSE 63–124; RESP 9–20; TEMP 36.3–37.2; O2SAT 94–100; BMI 23.7
[2023-07-09 04:53] LABS: VBG HCO3 30 mmol/L (22-26); VBG pCO2 37 mmHg; VBG pH 7.51 (7.32-7.43); VBG pO2 56 mmHg
[2023-07-09 05:01] LABS: MANUAL DIFF FLAG NO
[2023-07-09 05:07] LABS: Basophils Absolute Auto 0.1 X10*3/uL (0.0-0.2); Basophils Percent Auto 0.6 % (0-2); Eosinophils Absolute Auto 0.1 X10*3/uL (0.0-0.4); Eosinophils Percent Auto 0.8 % (0-4); Hematocrit 23.2 % (37.0-47.0); Hemoglobin 8.7 g/dl (12.0-16.0); Imm Gran Abs Auto 0.11 X10*3/uL (0.00-0.03); Imm Gran Pct Auto 1.1 % (0.0-0.4); Lymphocytes Absolute Auto 1.5 X10*3/uL (1.2-4.9); Lymphocytes Percent Auto 14.8 % (20-40); Mean Corpuscular HGB Conc 37.5 g/dl (31.0-35.0); Mean Corpuscular Volume 87.9 fL (80.0-98.0); Mean Platelet Volume 12.2 fL (9.4-12.3); Monocytes Percent Auto 9.9 % (2-11); Neutrophils Absolute Auto 7.4 x10*3/uL (2.0-8.3); Neutrophils Percent Auto 72.8 % (45-73); Red Blood Count 2.64 X10*6/uL (4.20-5.50); White Blood Count 10.1 X10*3/uL (4.8-10.8)
[2023-07-09 05:08] LABS: Platelet Count 58 X10*3/uL (160-400)
[2023-07-09 05:37] LABS: Alanine Aminotransferase 70 U/L (0-31); Albumin Level 3.2 g/dL (3.5-5.0); Alkaline Phosphatase 149 U/L (39-117); Anion Gap 20 (12-20); Aspartate Amino Transferase 190 U/L (5-31); Bilirubin Total 22.5 mg/dL (0.0-1.0); Blood Urea Nitrogen 48 mg/dL (9-16); Calcium 7.9 mg/dL (8.4-10.2); Carbon Dioxide 24 mmol/L (22-29); Chloride 96 mmol/L (96-108); Creatinine Clr Calc Pharmacy 10.6; Estimated Glomerular Filt Rate 10; Glucose Random 178 mg/dL (60-115); Magnesium 1.7 mg/dL (1.6-2.6); Phosphorus 2.6 mg/dL (2.7-4.5); Potassium 3.3 mmol/L (3.3-5.1); Sodium 137 mmol/L (135-145); Total Protein 4.8 g/dL (6.5-8.0)
[2023-07-09] MEDS: Albumin Human 25 % 100 ML IV ×3 (06:03→18:16)
[2023-07-09] MEDS: Potassium Phosphate/NS 15 MMOL/250 ML PLAST..BAG 62.5 MMOL IV (06:03)
[2023-07-09] MEDS: Pantoprazole Sodium 40 MG/10 ML VIAL IVPUSH (06:03)
--- NOTE | 2023-07-09 06:53 | PC.NURSE ---
Assumed care of the patient at 22:30. Patient seen in the ICU. Continues with kaba, oliguria. [employer] aware. Critical labs reported to RUPERTO Jarquin. Please see shift assessments, tasks, and EMAR for full details. Handoff report given 06:50.
[2023-07-09] MEDS: Magnesium Oxide 400 MG TABLET PO (08:59)
[2023-07-09] MEDS: Thiamine HCL 100 MG TABLET PO (08:59)
[2023-07-09] MEDS: Lactulose 20 GM/30 ML SOLUTION PO (09:00)
[2023-07-09] MEDS: rifAXIMin 550 MG TABLET PO ×2 (09:00→20:57)
[2023-07-09] MEDS: Folic Acid 1 MG TABLET PO (09:00)
[2023-07-09] MEDS: Midodrine HCl 10 MG TABLET PO ×3 (09:04→20:57)
--- NOTE | 2023-07-09 10:39 | PM.CCPN ---
Subjective Subjective Date of Service: 07/09/23 Interval History: 63-year-old lady with alcoholic cirrhosis with portal vein hypertension and ascites, alcohol abuse, gout admitted on 07/03/2025 and treated for acute liver failure who had a therapeutic paracentesis on 07/06/2023 with drainage of 2 L of ascitic fluid on 07/07/2023 in a.m. noted to have 5.5 g drop in hemoglobin with hypotension. Patient was started on blood product support and transferred to intensive care unit. CT abdomen pelvis shows hemoperitoneum. Patient evaluated by General surgery with no operative intervention deemed necessary at that time. Patient being monitored in intensive care unit. No events overnight. Hemoglobin stabilized. Still oliguric, but phosphorous level is improving. Critical Care Time (minutes): 0 Physical Exam Vital Signs: Vital Signs: Last Vital Signs Temp 99.0 F 07/09/23 08:00 Pulse 70 07/09/23 10:00 Resp 20 07/09/23 10:00 BP 105/57 L 07/09/23 10:00 Pulse Ox 95 07/09/23 10:00 O2 Del Method Room Air 07/09/23 10:00 BMI result Body Mass Index 23.7 Const: General: no acute distress, alert, awake and other (Jaundiced) Eyes: Sclerae: scleral abnormal (Icteric) EOM: EOMs intact bilaterally Neck: Neck: Yes no lymphadenopathy, Yes trachea midline and Yes supple Resp: Effort & Inspection: normal respiratory effort and no respiratory distress Auscultation: clear to auscultation bilaterally Cardio: Rate: tachycardic Rhythm: regular rhythm Heart sounds: no gallops, no murmurs and no rubs GI: Palpation (GI): Soft to palpation and Other GI palpation findings present ( Nontender) Auscultation: normal bowel sounds Extrem: General: No clubbing, No cyanosis and Yes edema (1+ bilateral) Objective Data Labs 07/09/23 04:47 07/09/23 04:47 Labs: Laboratory Results - last 24 hr 07/09/23 07/09/23 04:46 04:47 WBC 10.1 RBC 2.64 L Hgb 8.7 L Hct 23.2 L MCV 87.9 MCH 33.0 MCHC 37.5 H RDW 17.0 H Plt Count 58 L MPV 12.2 Immature Gran % (Auto) 1.1 H Neut % (Auto) 72.8 Lymph % (Auto) 14.8 L [place] % (Auto) 9.9 Eos % (Auto) 0.8 Baso % (Auto) 0.6 Lymph # (Auto) 1.5 [place] # (Auto) 1.0 Eos # (Auto) 0.1 Baso # (Auto) 0.1 Abs Immat Gran (auto) 0.11 H Absolute Neuts (auto) 7.4 Absolute Nucleated RBC 0.000 Nucleated RBC % (auto) 0.0 VBG pH 7.51 H VBG pCO2 37 VBG pO2 56 VBG HCO3 30 H VBG O2 Saturation 93.0 VBG Base Excess 7.0 Sodium 137 Potassium 3.3 Chloride 96 Carbon Dioxide 24 Anion Gap 20 BUN 48 H Creatinine 4.41 H* Estim Creat Clear Calc 10.6 Estimated GFR 10 Random Glucose 178 H Calcium 7.9 L Phosphorus 2.6 L Magnesium 1.7 Total Bilirubin 22.5 H AST 190 H ALT 70 H Alkaline Phosphatase 149 H Total Protein 4.8 L Albumin 3.2 L Microbiology Microbiology Results: Microbiology 07/04/23 15:30 Ascites Fluid Gram Stain - Final 07/04/23 15:30 Ascites Fluid Routine Culture - Final No growth after 2 days 07/04/23 15:30 Ascites Fluid Anaerobic Culture - Final NO GROWTH AFTER 5 DAYS 07/04/23 17:58 Blood - Venous Blood Culture - Preliminary No growth after 48 hours. 07/04/23 17:44 Blood - Venous Blood Culture - Preliminary No growth after 48 hours. 07/04/23 17:34 Urine clean catch - Clean Catch Midstream Urine Culture - Final Progress Note: A&P Assessment and plan (1) Acute kidney injury: Status: Acute (2) Acute liver failure: Status: Acute (3) Hemoperitoneum: Status: Acute (4) Acute blood loss anemia: Status: Acute (5) Liver cirrhosis: Status: Acute Plan Assessment: 63-year-old lady admitted with liver failure with hospital course complicated by post paracentesis acute blood loss anemia and hemoperitoneum Plan: Neuro: No acute issues. Cardiac: No acute issues. Pulmonary: No acute issues. Renal: Acute renal failure secondary to hepatorenal syndrome. Continue to monitor renal indices and urine output. Nephrology service care appreciated. Oliguric, but phosphorous level is starting to improve. Endo: No acute issues. GI: Liver cirrhosis. Decompensated liver failure. Recurrent ascites. Status post therapeutic paracentesis. Gastroenterology service care appreciated. ID: No acute issues Heme/Onc: Acute blood loss anemia with hemoperitoneum. Hemoglobin level has stabilized. General surgery service care appreciated. Coagulopathy, status post FFP and vitamin K. Psych: No acute issues. Miscellaneous: No acute issues. Prophylaxis: Pneumatic compression Diet: Low potassium Quality Stroke Does the patient have a stroke diagnosis?: No VTE Prior VTE?: No VTE Risk Level:: Medical - moderate - high VTE Device Contraindication: N/A - Device Ordered VTE Drug Contraindication: Treatment Not Indicated
[2023-07-09 10:46] LABS: Venous Blood Gas Refer to POC result
--- NOTE | 2023-07-09 14:00 | PC.NURSE ---
Patient transferred to [facility], per Dr. Frausto's order, patient will be transferred with kaba catheter in.
--- NOTE | 2023-07-09 14:51 | PC.NURSE ---
assumed care of patient at 14:50. Pt arrived on unit a/o X4,. currently on room air, kaba cath in polace for retention draining dark yellow concentrated urine. all vitals WNL pt noted to have some discomfort at kaba insertion site, patient states that she feels dizzy at times. notified
[2023-07-09] MEDS: 0.9 % Sodium Chloride Flush 3 ML SYRINGE IVFLUSH ×2 (15:02→21:02)
[2023-07-09] MEDS: Benzonatate 100 MG CAPSULE 200 MG PO (20:57)
[2023-07-09] MEDS: Melatonin 3 MG TABLET 6 MG PO (20:57)
[2023-07-09] MEDS: ondansetron HCL 4 MG/2 ML VIAL IVPUSH (21:20)
[2023-07-09] MEDS: Sennosides 8.6 MG TABLET 17.2 MG PO (21:20)
[2023-07-09] MEDS: Acetaminophen 325 MG TABLET 650 MG PO (21:30)
[2023-07-10] MEDS: Albumin Human 25 % 100 ML IV (01:56)
[2023-07-10 03:54] VITALS: BP 104/66; PULSE 66; RESP 18; TEMP 37.2; O2SAT 95
[2023-07-10 06:00] VITALS: BP 114/65; PULSE 71; RESP 18; TEMP 36.4; O2SAT 95
[2023-07-10 06:35] LABS: VBG Base Excess 7.6 mmol/L; VBG HCO3 30 mmol/L (22-26); VBG pCO2 35 mmHg; VBG pH 7.54 (7.32-7.43); VBG pO2 105 mmHg
[2023-07-10 06:40] LABS: MANUAL DIFF FLAG NO
[2023-07-10 06:40] LABS: Venous Blood Gas Refer to POC result
[2023-07-10 06:47] LABS: Basophils Absolute Auto 0.1 X10*3/uL (0.0-0.2); Basophils Percent Auto 0.6 % (0-2); Eosinophils Absolute Auto 0.1 X10*3/uL (0.0-0.4); Hematocrit 22.7 % (37.0-47.0); Imm Gran Abs Auto 0.12 X10*3/uL (0.00-0.03); Imm Gran Pct Auto 1.2 % (0.0-0.4); Lymphocytes Absolute Auto 1.6 X10*3/uL (1.2-4.9); Lymphocytes Percent Auto 16.5 % (20-40); Mean Corpuscular Volume 87.6 fL (80.0-98.0); Mean Platelet Volume 11.6 fL (9.4-12.3); Neutrophils Absolute Auto 6.9 x10*3/uL (2.0-8.3); Neutrophils Percent Auto 70.7 % (45-73); Red Blood Count 2.59 X10*6/uL (4.20-5.50); Red Cell Distribution Width 17.2 % (11.0-16.0); SCAN SMEAR FLAG 1; White Blood Count 9.7 X10*3/uL (4.8-10.8)
[2023-07-10 07:08] LABS: Alanine Aminotransferase 42 U/L (0-31); Albumin Level 3.6 g/dL (3.5-5.0); Alkaline Phosphatase 128 U/L (39-117); Anion Gap 21 (12-20); Aspartate Amino Transferase 88 U/L (5-31); Bilirubin Total 22.2 mg/dL (0.0-1.0); Blood Urea Nitrogen 53 mg/dL (9-16); Calcium 8.1 mg/dL (8.4-10.2); Carbon Dioxide 24 mmol/L (22-29); Chloride 97 mmol/L (96-108); Creatinine Clr Calc Pharmacy 9.1; Estimated Glomerular Filt Rate 8; Glucose Random 114 mg/dL (60-115); Magnesium 1.8 mg/dL (1.6-2.6); Phosphorus 3.5 mg/dL (2.7-4.5); Potassium 3.6 mmol/L (3.3-5.1); Sodium 138 mmol/L (135-145)
[2023-07-10 07:09] LABS: Hemoglobin 7.6 g/dl (12.0-16.0); Platelet Count 58 X10*3/uL (160-400)
[2023-07-10 07:10] LABS: Mean Corpuscular HGB Conc 33.5 g/dl (31.0-35.0); Mean Corpuscular Hemoglobin 29.3 pg (27.0-33.0)
[2023-07-10 07:29] VITALS: BP 122/67; PULSE 81; RESP 18; TEMP 36.3; O2SAT 95
--- NOTE | 2023-07-10 08:20 | HO.PM.IMPN ---
Subjective Subjective Date of Service: 07/10/23 Interval History: anuric, feeling weak Physical Exam Vital Signs: Vital Signs: Last Vital Signs Temp 97.4 F 07/10/23 07:29 Pulse 81 07/10/23 07:29 Resp 18 07/10/23 07:29 BP 122/67 07/10/23 07:29 Pulse Ox 95 07/10/23 07:29 O2 Del Method Room Air 07/10/23 07:29 BMI result Body Mass Index 23.7 General: lethargic O X 3, jaundiced, ill appearing Resp: diminished bilateral, no accessory muscles used CVS: S1,S2,RRR GI: soft, non tender, distended Neuro: motor grossly intact, alert Psych: appropriate affect, appropriate insight Objective Data Active Medications Acetaminophen (Acetaminophen 325 Mg Tablet) 650 mg PO Q6H PRN PRN Reason: Pain, Mild (Pain Scale 1-3) Last Admin: 07/09/23 21:30 Dose: 650 mg Documented By: EILEEN Benzonatate (Benzonatate 100 Mg Capsule) 200 mg PO TID PRN PRN Reason: Cough Last Admin: 07/09/23 20:57 Dose: 200 mg Documented By: EILEEN Diphenhydramine HCl (Diphenhydramine Hcl 25 Mg Capsule) 25 mg PO Q6H PRN PRN Reason: Itching Last Admin: 07/06/23 17:18 Dose: 25 mg Documented By: HERBERTH Folic Acid (Folic Acid 1 Mg Tablet) 1 mg PO DAILY [facility] Last Admin: 07/09/23 09:00 Dose: 1 mg Documented By: CHANCE Dextrose (D10) 250 mls @ 750 mls/hr IV Q15M PRN PRN Reason: per Hypoglycemia Standing Ord. Last Infusion: 07/04/23 14:49 Dose: Infused Documented By: VERENA Lactulose (Lactulose 20 Gm/30 Ml Solution) 20 gm PO DAILY [facility] Last Admin: 07/09/23 09:00 Dose: 20 gm Documented By: CHANCE Magnesium Oxide (Magnesium Oxide 400 Mg Tablet) 400 mg PO DAILY [facility] Last Admin: 07/09/23 08:59 Dose: 400 mg Documented By: CHANCE Melatonin (Melatonin 3 Mg Tablet) 6 mg PO BEDTIME PRN PRN Reason: Insomnia Last Admin: 07/09/23 20:57 Dose: 6 mg Documented By: EILEEN Midodrine (Midodrine Hcl 10 Mg Tablet) 10 mg PO TID [facility] Last Admin: 07/09/23 20:57 Dose: 10 mg Documented By: EILEEN Ondansetron HCl (Ondansetron Hcl 4 Mg/2 Ml Vial) 4 mg IVPUSH Q8H PRN PRN Reason: Nausea and Vomiting Last Admin: 07/09/23 21:20 Dose: 4 mg Documented By: EILEEN Rifaximin (Rifaximin 550 Mg Tablet) 550 mg PO BID [facility] Last Admin: 07/09/23 20:57 Dose: 550 mg Documented By: EILEEN Senna (Sennosides 8.6 Mg Tablet) 17.2 mg PO BEDTIME PRN PRN Reason: Constipation Last Admin: 07/09/23 21:20 Dose: 17.2 mg Documented By: EILEEN Sodium Chloride (0.9 % Sodium Chloride Flush 3 Ml Syringe) 3 ml IVFLUSH QSHIFT [facility] Last Admin: 07/09/23 21:02 Dose: 3 ml Documented By: EILEEN Thiamine HCl (Thiamine Hcl 100 Mg Tablet) 100 mg PO DAILY [facility] Last Admin: 07/09/23 08:59 Dose: 100 mg Documented By: CHANCE Labs 07/10/23 06:26 07/10/23 06:26 Labs: Laboratory Results - last 24 hr 07/10/23 07/10/23 06:26 06:28 MCV 87.6 MCH 29.3 MCHC 33.5 RDW 17.2 H Plt Count 58 L MPV 11.6 Immature Gran % (Auto) 1.2 H Neut % (Auto) 70.7 Lymph % (Auto) 16.5 L [place] % (Auto) 10.0 Eos % (Auto) 1.0 Baso % (Auto) 0.6 Lymph # (Auto) 1.6 [place] # (Auto) 1.0 Eos # (Auto) 0.1 Baso # (Auto) 0.1 Abs Immat Gran (auto) 0.12 H Absolute Neuts (auto) 6.9 Absolute Nucleated RBC 0.000 Nucleated RBC % (auto) 0.0 VBG pH 7.54 H VBG pCO2 35 VBG pO2 105 VBG HCO3 30 H VBG O2 Saturation 100.0 VBG Base Excess 7.6 Anion Gap 21 H Estim Creat Clear Calc 9.1 Estimated GFR 8 Random Glucose 114 Calcium 8.1 L Phosphorus 3.5 Magnesium 1.8 Total Bilirubin 22.2 H AST 88 H ALT 42 H Alkaline Phosphatase 128 H Total Protein 5.0 L Albumin 3.6 Microbiology Microbiology Results: Microbiology 07/04/23 17:58 Blood Culture - Final Blood - Venous No growth after 5 days. 07/04/23 17:44 Blood Culture - Final Blood - Venous No growth after 5 days. 07/04/23 15:30 Gram Stain - Final Ascites Fluid Routine Culture - Final No growth after 2 days Anaerobic Culture - Final NO GROWTH AFTER 5 DAYS Assessment and Plan (1) Liver cirrhosis: Status: Acute (2) Hyperbilirubinemia: Status: Acute (3) Hyperkalemia: Status: Acute (4) Acute on chronic kidney failure: Status: Acute (5) Hepatorenal syndrome: Status: Acute Plan 63F PMH alcoholic cirrhosis complicated by portal hypertension and ascites, alcohol use disorder, gout, hypertension, GERD presented with worsening fatigue and jaundice, found to have acute kidney injury and worsening liver function, overnight 07/05-07/06 - sycnopal episode, hypotension (not due ot sepsis, due to bleeding), drop in hgb, worsening mentation, transfered to ICU, found to have hemoperitoneum, transfused, hgb stabilized, downgraded to medical floor 07/09/23, now complicated by anuria, worsening renal function acute kidney injury Hepatorenal syndrome holding diuretics s/p Albumin and Octreotide continue midodrine continues to worsen nephrology following follow I\O, BMP acute blood loss anemia in alcoholic cirrhosis due to hemoperitoneum monitor h and h stabilizing acute metabolic acidosis resolved Acute hyperkalemia resolved acute decompensated hepatic cirrhosis complicated by ascites, portal vein hypertension NOT a candidate for transplant stopped prednisolone for bleed paracentesis performed by IR 07/04/23 does not indicate SBP, hold on Abx - due to abd pain and distension 2L removed 07/06/23 continue lactulose, rifaximin chronic thrombocytopenia related to cirrhosis alcohol use disorder in early remission. Relapse on Tuesday without any further alcohol use DVT prophylaxis-SCPs due to bleed Full code reason for continued hospitalization:anuria Quality Stroke Does the patient have a stroke diagnosis?: No VTE Prior VTE?: No VTE Risk Level:: Medical - moderate - high VTE Device Contraindication: N/A - Device Ordered VTE Drug Contraindication: Treatment Not Indicated
[2023-07-10] MEDS: 0.9 % Sodium Chloride Flush 3 ML SYRINGE IVFLUSH (09:55)
[2023-07-10] MEDS: Midodrine HCl 10 MG TABLET PO ×3 (09:55→21:04)
[2023-07-10] MEDS: Thiamine HCL 100 MG TABLET PO (09:55)
[2023-07-10] MEDS: Magnesium Oxide 400 MG TABLET PO (09:55)
[2023-07-10] MEDS: Folic Acid 1 MG TABLET PO (09:55)
[2023-07-10] MEDS: rifAXIMin 550 MG TABLET PO ×2 (09:55→21:04)
[2023-07-10] MEDS: Lactulose 20 GM/30 ML SOLUTION PO (09:56)
[2023-07-10 11:46] VITALS: BP 113/52; PULSE 81; RESP 18; TEMP 36.8; O2SAT 95
[2023-07-10 15:53] VITALS: BP 101/55; PULSE 80; RESP 18; TEMP 36.6; O2SAT 96
[2023-07-10] MEDS: Benzonatate 100 MG CAPSULE 200 MG PO (17:26)
[2023-07-10 20:00] VITALS: BP 114/69; PULSE 100; RESP 18; TEMP 36.3; O2SAT 96
[2023-07-11] VITALS (7 sets, daily range): BP systolic 99–149; BP diastolic 55–76; PULSE 75–117; RESP 17–20; TEMP 36.2–37.2; O2SAT 94–96
--- NOTE | 2023-07-11 | ECG_ITS ---
Test Reason : tachycardia Blood Pressure : / mmHG Vent. Rate : 118 BPM Atrial Rate : 129 BPM P-R Int : 128 ms QRS Dur : 074 ms QT Int : 332 ms P-R-T Axes : 039 012 040 degrees QTc Int : 465 ms Sinus tachycardia with Premature atrial complexes Nonspecific T wave abnormality Abnormal ECG When compared with ECG of 04-JUL-2023 16:32, No significant change was found Referred By: Jordan Miranda Electronically Signed By:CARLENE WALLACE MD
[2023-07-11] MEDS: 0.9 % Sodium Chloride Flush 3 ML SYRINGE IVFLUSH ×3 (01:16→15:59)
[2023-07-11 06:19] LABS: Hematocrit 25.6 % (37.0-47.0); Hemoglobin 9.4 g/dl (12.0-16.0); Mean Corpuscular HGB Conc 36.7 g/dl (31.0-35.0); Mean Corpuscular Hemoglobin 33.3 pg (27.0-33.0); Mean Corpuscular Volume 90.8 fL (80.0-98.0); Mean Platelet Volume 10.6 fL (9.4-12.3); Red Blood Count 2.82 X10*6/uL (4.20-5.50); Red Cell Distribution Width 17.4 % (11.0-16.0); White Blood Count 11.8 X10*3/uL (4.8-10.8)
[2023-07-11 06:26] LABS: Platelet Count 68 X10*3/uL (160-400)
[2023-07-11 06:50] LABS: Alanine Aminotransferase 37 U/L (0-31); Albumin Level 3.4 g/dL (3.5-5.0); Alkaline Phosphatase 141 U/L (39-117); Anion Gap 22 (12-20); Aspartate Amino Transferase 67 U/L (5-31); Bilirubin Total 24.7 mg/dL (0.0-1.0); Blood Urea Nitrogen 57 mg/dL (9-16); Calcium 8.6 mg/dL (8.4-10.2); Carbon Dioxide 26 mmol/L (22-29); Chloride 96 mmol/L (96-108); Creatinine Clr Calc Pharmacy 8.5; Estimated Glomerular Filt Rate 8; Glucose Fasting 107 mg/dL (60-99); Potassium 3.6 mmol/L (3.3-5.1); Sodium 140 mmol/L (135-145); Total Protein 4.9 g/dL (6.5-8.0)
[2023-07-11 07:06] LABS: Bilirubin Direct 17.1 mg/dL (0.0-0.5)
[2023-07-11] MEDS: Folic Acid 1 MG TABLET PO (09:19)
[2023-07-11] MEDS: Midodrine HCl 10 MG TABLET PO ×3 (09:19→20:31)
[2023-07-11] MEDS: Magnesium Oxide 400 MG TABLET PO (09:19)
[2023-07-11] MEDS: Thiamine HCL 100 MG TABLET PO (09:19)
[2023-07-11] MEDS: rifAXIMin 550 MG TABLET PO ×2 (09:19→20:31)
[2023-07-11] MEDS: Lactulose 20 GM/30 ML SOLUTION PO (09:47)
--- NOTE | 2023-07-11 10:47 | P.PNIM_ITS ---
Subjective Subjective Date of Service: 07/11/23 Interval History: oliguria Physical Exam 2 Vital Signs: Vital Signs: Last Vital Signs Temp 97.9 F 07/11/23 07:17 Pulse 79 07/11/23 07:17 Resp 20 07/11/23 07:17 BP 106/60 07/11/23 07:17 Pulse Ox 96 07/11/23 07:17 O2 Del Method Room Air 07/11/23 07:17 BMI result Body Mass Index 23.7 General: lethargic O X 3, jaundiced, ill appearing Resp: diminished bilateral, no accessory muscles used CVS: S1,S2,RRR GI: soft, non tender, distended Neuro: motor grossly intact, alert Psych: appropriate affect, appropriate insight Objective Data Active Medications Acetaminophen (Acetaminophen 325 Mg Tablet) 650 mg PO Q6H PRN PRN Reason: Pain, Mild (Pain Scale 1-3) Last Admin: 07/09/23 21:30 Dose: 650 mg Documented By: EILEEN Benzonatate (Benzonatate 100 Mg Capsule) 200 mg PO TID PRN PRN Reason: Cough Last Admin: 07/10/23 17:26 Dose: 200 mg Documented By: FOSTEKAida Diphenhydramine HCl (Diphenhydramine Hcl 25 Mg Capsule) 25 mg PO Q6H PRN PRN Reason: Itching Last Admin: 07/06/23 17:18 Dose: 25 mg Documented By: HERBERTH Folic Acid (Folic Acid 1 Mg Tablet) 1 mg PO DAILY [facility] Last Admin: 07/11/23 09:19 Dose: 1 mg Documented By: SOFYA Dextrose (D10) 250 mls @ 750 mls/hr IV Q15M PRN PRN Reason: per Hypoglycemia Standing Ord. Last Infusion: 07/04/23 14:49 Dose: Infused Documented By: VERENA Lactulose (Lactulose 20 Gm/30 Ml Solution) 20 gm PO DAILY [facility] Last Admin: 07/11/23 09:47 Dose: 20 gm Documented By: SOFYA Magnesium Oxide (Magnesium Oxide 400 Mg Tablet) 400 mg PO DAILY [facility] Last Admin: 07/11/23 09:19 Dose: 400 mg Documented By: SOFYA Melatonin (Melatonin 3 Mg Tablet) 6 mg PO BEDTIME PRN PRN Reason: Insomnia Last Admin: 07/09/23 20:57 Dose: 6 mg Documented By: EILEEN Midodrine (Midodrine Hcl 10 Mg Tablet) 10 mg PO TID [facility] Last Admin: 07/11/23 09:19 Dose: 10 mg Documented By: SOFYA Ondansetron HCl (Ondansetron Hcl 4 Mg/2 Ml Vial) 4 mg IVPUSH Q8H PRN PRN Reason: Nausea and Vomiting Last Admin: 07/09/23 21:20 Dose: 4 mg Documented By: EILEEN Rifaximin (Rifaximin 550 Mg Tablet) 550 mg PO BID [facility] Last Admin: 07/11/23 09:19 Dose: 550 mg Documented By: SOFYA Senna (Sennosides 8.6 Mg Tablet) 17.2 mg PO BEDTIME PRN PRN Reason: Constipation Last Admin: 07/09/23 21:20 Dose: 17.2 mg Documented By: EILEEN Sodium Chloride (0.9 % Sodium Chloride Flush 3 Ml Syringe) 3 ml IVFLUSH QSHIFT [facility] Last Admin: 07/11/23 09:18 Dose: 3 ml Documented By: SOFYA Thiamine HCl (Thiamine Hcl 100 Mg Tablet) 100 mg PO DAILY [facility] Last Admin: 07/11/23 09:19 Dose: 100 mg Documented By: SOFYA Labs 07/11/23 05:59 07/11/23 05:59 Labs: Laboratory Results - last 24 hr 07/11/23 05:59 MCV 90.8 MCH 33.3 H MCHC 36.7 H RDW 17.4 H Plt Count 68 L MPV 10.6 Absolute Nucleated RBC 0.000 Nucleated RBC % (auto) 0.0 Anion Gap 22 H Estim Creat Clear Calc 8.5 Estimated GFR 8 Fasting Glucose 107 H Calcium 8.6 D Total Bilirubin 24.7 H Direct Bilirubin 17.1 H AST 67 H ALT 37 H Alkaline Phosphatase 141 H Total Protein 4.9 L Albumin 3.4 L Assessment and Plan (1) Liver cirrhosis: Status: Acute (2) Hyperbilirubinemia: Status: Acute (3) Hyperkalemia: Status: Acute (4) Acute on chronic kidney failure: Status: Acute (5) Hepatorenal syndrome: Status: Acute Plan 63F PMH alcoholic cirrhosis complicated by portal hypertension and ascites, alcohol use disorder, gout, hypertension, GERD presented with worsening fatigue and jaundice, found to have acute kidney injury and worsening liver function, overnight 07/05-07/06 - sycnopal episode, hypotension (not due ot sepsis, due to bleeding), drop in hgb, worsening mentation, transfered to ICU, found to have hemoperitoneum, transfused, hgb stabilized, downgraded to medical floor 07/09/23, now complicated by anuria, worsening renal function acute kidney injury Hepatorenal syndrome holding diuretics s/p Albumin and Octreotide continue midodrine continues to worsen nephrology following follow I\O, BMP acute blood loss anemia in alcoholic cirrhosis due to hemoperitoneum monitor h and h stabilized acute metabolic acidosis resolved Acute hyperkalemia resolved acute decompensated hepatic cirrhosis complicated by ascites, portal vein hypertension NOT a candidate for transplant stopped prednisolone for bleed paracentesis performed by IR 07/04/23 does not indicate SBP, hold on Abx - due to abd pain and distension 2L removed 07/06/23 continue lactulose, rifaximin chronic thrombocytopenia related to cirrhosis alcohol use disorder in early remission. Relapse on Tuesday without any further alcohol use DVT prophylaxis-SCPs due to bleed Full code reason for continued hospitalization:worsening renal function Quality Stroke Does the patient have a stroke diagnosis?: No VTE Prior VTE?: No VTE Risk Level:: Medical - moderate - high VTE Device Contraindication: N/A - Device Ordered VTE Drug Contraindication: Treatment Not Indicated
--- NOTE | 2023-07-11 10:48 | MHC.CM.PN ---
Per ROUNDS discussion, Patient is not yet medically cleared for dc (worsening Renal Function); PT is recommending STR and CM will continue to follow.
--- NOTE | 2023-07-11 13:30 | P.PNNP_ITS ---
Subjective Subjective Date of Service: 07/11/23 Interval history: oliguria Physical Exam 2 Vital Signs: Vital Signs: Last Vital Signs Temp 97.3 F 07/11/23 11:22 Pulse 82 07/11/23 11:22 Resp 20 07/11/23 11:22 BP 115/66 07/11/23 11:22 Pulse Ox 96 07/11/23 11:22 O2 Del Method Room Air 07/11/23 11:22 BMI result Body Mass Index 23.7 Const: General: comfortable and no acute distress HEENT: Head: Yes normocephalic Mouth: Normal oral and palatal mucosa present Eyes: EOM: EOMs intact bilaterally Neck: Neck: Yes supple Resp: Auscultation: clear to auscultation bilaterally and diminished lung sounds Cardio: Jugular venous distension: no JVD Rate: regular rate Heart sounds: Murmur heart sound present GI: Palpation (GI): Soft to palpation Auscultation: normal bowel sounds : General: Yes no CVA tenderness Back/Spine/Pelvis: Back: no CVA tenderness Skin: General skin exam: no rashes or lesions noted Neuro: General: moves all extremities Objective Data Labs 07/11/23 05:59 07/11/23 05:59 Labs: Laboratory Results - last 24 hr 07/11/23 05:59 WBC 11.8 H RBC 2.82 L Hgb 9.4 L D Hct 25.6 L MCV 90.8 MCH 33.3 H MCHC 36.7 H RDW 17.4 H Plt Count 68 L MPV 10.6 Absolute Nucleated RBC 0.000 Nucleated RBC % (auto) 0.0 Sodium 140 Potassium 3.6 Chloride 96 Carbon Dioxide 26 Anion Gap 22 H BUN 57 H Creatinine 5.51 H* Estim Creat Clear Calc 8.5 Estimated GFR 8 Fasting Glucose 107 H Calcium 8.6 D Total Bilirubin 24.7 H Direct Bilirubin 17.1 H AST 67 H ALT 37 H Alkaline Phosphatase 141 H Total Protein 4.9 L Albumin 3.4 L Microbiology Microbiology Results: Microbiology 07/04/23 17:58 Blood - Venous Blood Culture - Final No growth after 5 days. 07/04/23 17:44 Blood - Venous Blood Culture - Final No growth after 5 days. 07/04/23 15:30 Ascites Fluid Gram Stain - Final 07/04/23 15:30 Ascites Fluid Routine Culture - Final No growth after 2 days 07/04/23 15:30 Ascites Fluid Anaerobic Culture - Final NO GROWTH AFTER 5 DAYS 07/04/23 17:34 Urine clean catch - Clean Catch Midstream Urine Culture - Final Procedures Date of Service Date of Service: 07/11/23 Assessment & Plan Assessment and plan (1) Acute kidney injury: Status: Acute Assessment and Plan: Acute Kidney Injury due to tubular injury Has HRS 2 at baseline; Serum creatinine worse; Superimposed ischemic ATN due to blood loss Creatinine has peaked and plateaued Likely will need renal replacement soon if no improvement No over s/s of uremia today Continue current supportive care for now Time Spent With Patient Time: Total time managing care of this patient today ____ minutes. Progress Note: Quality Stroke Does the patient have a stroke diagnosis?: No
[2023-07-12] VITALS (7 sets, daily range): BP systolic 97–129; BP diastolic 53–65; PULSE 60–118; RESP 15–20; TEMP 36.2–36.9; O2SAT 94–97
[2023-07-12] MEDS: Metoprolol Tartrate 12.5 MG HALFTAB PO ×3 (00:20→20:45)
[2023-07-12] MEDS: 0.9 % Sodium Chloride Flush 3 ML SYRINGE IVFLUSH ×4 (00:21→20:45)
[2023-07-12 01:02] LABS: Hemoglobin 9.8 g/dl (12.0-16.0); Lymphocytes Percent Auto 12.3 % (20-40); PLT CLUMP 1; SCAN SMEAR FLAG 1
[2023-07-12 01:03] LABS: Basophils Absolute Auto 0.1 X10*3/uL (0.0-0.2); Basophils Percent Auto 0.8 % (0-2); Eosinophils Absolute Auto 0.1 X10*3/uL (0.0-0.4); Eosinophils Percent Auto 0.6 % (0-4); Hematocrit 26.6 % (37.0-47.0); Imm Gran Pct Auto 0.7 % (0.0-0.4); Lymphocytes Absolute Auto 1.7 X10*3/uL (1.2-4.9); MANUAL DIFF FLAG SCAN; Mean Corpuscular HGB Conc 36.8 g/dl (31.0-35.0); Mean Corpuscular Hemoglobin 33.3 pg (27.0-33.0); Mean Corpuscular Volume 90.5 fL (80.0-98.0); Mean Platelet Volume 11.3 fL (9.4-12.3); Monocytes Absolute Auto 1.8 X10*3/uL (0.1-1.2); Monocytes Percent Auto 13.1 % (2-11); NRBC Pct Auto 0.1 /100WBC (0.0-0.2); Neutrophils Absolute Auto 10.2 x10*3/uL (2.0-8.3); Neutrophils Percent Auto 72.5 % (45-73); Red Blood Count 2.94 X10*6/uL (4.20-5.50); Red Cell Distribution Width 17.7 % (11.0-16.0)
[2023-07-12 01:04] LABS: Platelet Count 75 X10*3/uL (160-400)
[2023-07-12 01:16] LABS: Alanine Aminotransferase 34 U/L (0-31); Albumin Level 3.6 g/dL (3.5-5.0); Alkaline Phosphatase 156 U/L (39-117); Anion Gap 23 (12-20); Aspartate Amino Transferase 66 U/L (5-31); Blood Urea Nitrogen 60 mg/dL (9-16); Calcium 9.2 mg/dL (8.4-10.2); Carbon Dioxide 22 mmol/L (22-29); Chloride 98 mmol/L (96-108); Creatinine Clr Calc Pharmacy 8.2; Estimated Glomerular Filt Rate 8; Glucose Random 112 mg/dL (60-115); Potassium 3.8 mmol/L (3.3-5.1); Sodium 139 mmol/L (135-145); Total Protein 5.3 g/dL (6.5-8.0)
[2023-07-12 01:22] LABS: Troponin-I High Sensitivity 19.1 ng/L (<3.5-17.0)
[2023-07-12 01:24] LABS: SLIDE REVIEW VERIFIED
[2023-07-12 01:25] LABS: Bilirubin Total 28.7 mg/dL (0.0-1.0)
[2023-07-12 06:29] LABS: Hematocrit 25.3 % (37.0-47.0); Mean Corpuscular HGB Conc 35.6 g/dl (31.0-35.0); Mean Corpuscular Hemoglobin 32.4 pg (27.0-33.0); Platelet Count 79 X10*3/uL (160-400); Red Blood Count 2.78 X10*6/uL (4.20-5.50); Red Cell Distribution Width 17.9 % (11.0-16.0); White Blood Count 12.1 X10*3/uL (4.8-10.8)
[2023-07-12 06:39] LABS: Anion Gap 22 (12-20); Blood Urea Nitrogen 61 mg/dL (9-16); Calcium 9.1 mg/dL (8.4-10.2); Carbon Dioxide 21 mmol/L (22-29); Chloride 98 mmol/L (96-108); Creatinine Clr Calc Pharmacy 8.4; Estimated Glomerular Filt Rate 8; Glucose Fasting 114 mg/dL (60-99); Potassium 3.9 mmol/L (3.3-5.1); Sodium 137 mmol/L (135-145)
[2023-07-12 06:40] LABS: Alanine Aminotransferase 32 U/L (0-31); Albumin Level 3.4 g/dL (3.5-5.0); Alkaline Phosphatase 150 U/L (39-117); Aspartate Amino Transferase 66 U/L (5-31); Total Protein 5.1 g/dL (6.5-8.0)
[2023-07-12 06:45] LABS: Bilirubin Total 28.1 mg/dL (0.0-1.0)
--- NOTE | 2023-07-12 06:48 | PM.EVENT ---
Event Note Date of Service: 07/12/23 Event Note: 11:40 PM - contacted to notify patient has been having multiple events of atrial tachycardia (3rd time). The rest the vital signs are normal: BP 114/61, O2 saturation 96%, temperature 98.4 degrees. ECG stat showed sinus tachycardia. Time Spent With Patient Time: Total time managing care of this patient today ____ minutes.
[2023-07-12 06:55] LABS: Bilirubin Direct 18.6 mg/dL (0.0-0.5)
[2023-07-12] MEDS: Lactulose 20 GM/30 ML SOLUTION PO (09:36)
[2023-07-12] MEDS: rifAXIMin 550 MG TABLET PO ×2 (09:37→20:44)
[2023-07-12] MEDS: Folic Acid 1 MG TABLET PO (09:37)
[2023-07-12] MEDS: Magnesium Oxide 400 MG TABLET PO (09:37)
[2023-07-12] MEDS: Thiamine HCL 100 MG TABLET PO (09:37)
[2023-07-12] MEDS: Midodrine HCl 10 MG TABLET PO ×3 (09:37→20:45)
--- NOTE | 2023-07-12 11:55 | HO.PM.IMPN ---
Subjective Subjective Date of Service: 07/12/23 Interval History: urine picking up a bit Physical Exam Vital Signs: Vital Signs: Last Vital Signs Temp 97.4 F 07/12/23 11:05 Pulse 67 07/12/23 11:05 Resp 20 07/12/23 11:05 BP 97/57 L 07/12/23 11:05 Pulse Ox 97 07/12/23 11:05 O2 Del Method Room Air 07/12/23 11:05 BMI result Body Mass Index 23.7 Const: General: comfortable and no acute distress HEENT: Head: Yes normocephalic Mouth: Normal oral and palatal mucosa present Eyes: EOM: EOMs intact bilaterally Neck: Neck: Yes supple Resp: Auscultation: clear to auscultation bilaterally and diminished lung sounds Cardio: Jugular venous distension: no JVD Rate: regular rate Heart sounds: Murmur heart sound present GI: Palpation (GI): Soft to palpation Auscultation: normal bowel sounds : General: Yes no CVA tenderness Back/Spine/Pelvis: Back: no CVA tenderness Skin: General skin exam: no rashes or lesions noted Neuro: General: moves all extremities Objective Data Active Medications Acetaminophen (Acetaminophen 325 Mg Tablet) 650 mg PO Q6H PRN PRN Reason: Pain, Mild (Pain Scale 1-3) Last Admin: 07/09/23 21:30 Dose: 650 mg Documented By: EILEEN Benzonatate (Benzonatate 100 Mg Capsule) 200 mg PO TID PRN PRN Reason: Cough Last Admin: 07/10/23 17:26 Dose: 200 mg Documented By: JELLY Diphenhydramine HCl (Diphenhydramine Hcl 25 Mg Capsule) 25 mg PO Q6H PRN PRN Reason: Itching Last Admin: 07/06/23 17:18 Dose: 25 mg Documented By: HERBERTH Folic Acid (Folic Acid 1 Mg Tablet) 1 mg PO DAILY [facility] Last Admin: 07/12/23 09:37 Dose: 1 mg Documented By: SOFYA Dextrose (D10) 250 mls @ 750 mls/hr IV Q15M PRN PRN Reason: per Hypoglycemia Standing Ord. Last Infusion: 07/04/23 14:49 Dose: Infused Documented By: VERENA Lactulose (Lactulose 20 Gm/30 Ml Solution) 20 gm PO DAILY [facility] Last Admin: 07/12/23 09:36 Dose: 20 gm Documented By: SOFYA Magnesium Oxide (Magnesium Oxide 400 Mg Tablet) 400 mg PO DAILY [facility] Last Admin: 07/12/23 09:37 Dose: 400 mg Documented By: SOFYA Melatonin (Melatonin 3 Mg Tablet) 6 mg PO BEDTIME PRN PRN Reason: Insomnia Last Admin: 07/09/23 20:57 Dose: 6 mg Documented By: EILEEN Metoprolol Tartrate (Metoprolol Tartrate 12.5 Mg Halftab) 12.5 mg PO BID [facility]; Protocol Last Admin: 07/12/23 09:37 Dose: 12.5 mg Documented By: SOFYA Midodrine (Midodrine Hcl 10 Mg Tablet) 10 mg PO TID [facility] Last Admin: 07/12/23 09:37 Dose: 10 mg Documented By: SOFYA Ondansetron HCl (Ondansetron Hcl 4 Mg/2 Ml Vial) 4 mg IVPUSH Q8H PRN PRN Reason: Nausea and Vomiting Last Admin: 07/09/23 21:20 Dose: 4 mg Documented By: ELIEEN Rifaximin (Rifaximin 550 Mg Tablet) 550 mg PO BID [facility] Last Admin: 07/12/23 09:37 Dose: 550 mg Documented By: SOFYA Senna (Sennosides 8.6 Mg Tablet) 17.2 mg PO BEDTIME PRN PRN Reason: Constipation Last Admin: 07/09/23 21:20 Dose: 17.2 mg Documented By: EILEEN Sodium Chloride (0.9 % Sodium Chloride Flush 3 Ml Syringe) 3 ml IVFLUSH QSHIFT [facility] Last Admin: 07/12/23 09:36 Dose: 3 ml Documented By: SOFYA Thiamine HCl (Thiamine Hcl 100 Mg Tablet) 100 mg PO DAILY [facility] Last Admin: 07/12/23 09:37 Dose: 100 mg Documented By: SOFYA Labs 07/12/23 06:06 07/12/23 06:06 Labs: Laboratory Results - last 24 hr 07/12/23 07/12/23 00:25 06:06 MCV 90.5 91.0 MCH 33.3 H 32.4 MCHC 36.8 H 35.6 H RDW 17.7 H 17.9 H Plt Count 75 L 79 L MPV 11.3 12.0 Immature Gran % (Auto) 0.7 H Neut % (Auto) 72.5 Lymph % (Auto) 12.3 L [place] % (Auto) 13.1 H Eos % (Auto) 0.6 Baso % (Auto) 0.8 Lymph # (Auto) 1.7 [place] # (Auto) 1.8 H Eos # (Auto) 0.1 Baso # (Auto) 0.1 Abs Immat Gran (auto) 0.10 H Absolute Neuts (auto) 10.2 H Absolute Nucleated RBC 0.020 H 0.000 Nucleated RBC % (auto) 0.1 0.0 Smear Tech's Comments VERIFIED Anion Gap 23 H 22 H Estim Creat Clear Calc 8.2 8.4 Estimated GFR 8 8 Random Glucose 112 Fasting Glucose 114 H Calcium 9.2 D 9.1 Magnesium 2.0 Total Bilirubin 28.7 H 28.1 H Direct Bilirubin 18.6 H AST 66 H 66 H ALT 34 H 32 H Alkaline Phosphatase 156 H 150 H Troponin I High Sens 19.1 H D Total Protein 5.3 L 5.1 L Albumin 3.6 3.4 L Assessment and Plan (1) Liver cirrhosis: Status: Acute (2) Hyperbilirubinemia: Status: Acute (3) Hyperkalemia: Status: Acute (4) Acute on chronic kidney failure: Status: Acute (5) Hepatorenal syndrome: Status: Acute Plan 63F PMH alcoholic cirrhosis complicated by portal hypertension and ascites, alcohol use disorder, gout, hypertension, GERD presented with worsening fatigue and jaundice, found to have acute kidney injury and worsening liver function, overnight 07/05-07/06 - sycnopal episode, hypotension (not due ot sepsis, due to bleeding), drop in hgb, worsening mentation, transfered to ICU, found to have hemoperitoneum, transfused, hgb stabilized, downgraded to medical floor 07/09/23, now complicated by anuria, worsening renal function acute kidney injury Hepatorenal syndrome holding diuretics s/p Albumin and Octreotide continue midodrine starting to plateau and improve a bit nephrology following follow I\O, BMP acute blood loss anemia in alcoholic cirrhosis due to hemoperitoneum monitor h and h stabilized acute metabolic acidosis resolved Acute hyperkalemia resolved acute decompensated hepatic cirrhosis complicated by ascites, portal vein hypertension NOT a candidate for transplant stopped prednisolone for bleed paracentesis performed by IR 07/04/23 does not indicate SBP, hold on Abx - due to abd pain and distension 2L removed 07/06/23 continue lactulose, rifaximin chronic thrombocytopenia related to cirrhosis alcohol use disorder in early remission. Relapse on Tuesday without any further alcohol use DVT prophylaxis-SCPs due to bleed Full code reason for continued hospitalization: closely monitor renal function Quality Stroke Does the patient have a stroke diagnosis?: No VTE Prior VTE?: No VTE Risk Level:: Medical - moderate - high VTE Device Contraindication: N/A - Device Ordered VTE Drug Contraindication: Treatment Not Indicated
--- NOTE | 2023-07-12 12:58 | P.PNNP_ITS ---
Subjective Subjective Date of Service: 07/13/23 Interval history: urine picking up a bit Physical Exam 2 Vital Signs: Vital Signs: Last Vital Signs Temp 97.4 F 07/12/23 11:05 Pulse 67 07/12/23 11:05 Resp 20 07/12/23 11:05 BP 97/57 L 07/12/23 11:05 Pulse Ox 97 07/12/23 11:05 O2 Del Method Room Air 07/12/23 11:05 BMI result Body Mass Index 23.7 Const: General: comfortable and no acute distress HEENT: Head: Yes normocephalic Mouth: Normal oral and palatal mucosa present Eyes: EOM: EOMs intact bilaterally Neck: Neck: Yes supple Resp: Auscultation: clear to auscultation bilaterally and diminished lung sounds Cardio: Jugular venous distension: no JVD Rate: regular rate Heart sounds: Murmur heart sound present GI: Palpation (GI): Soft to palpation Auscultation: normal bowel sounds : General: Yes no CVA tenderness Back/Spine/Pelvis: Back: no CVA tenderness Skin: General skin exam: no rashes or lesions noted Neuro: General: moves all extremities Objective Data Labs 07/13/23 06:50 07/13/23 06:50 Labs: Laboratory Results - last 24 hr 07/12/23 07/12/23 00:25 06:06 WBC 14.0 H 12.1 H RBC 2.94 L 2.78 L Hgb 9.8 L 9.0 L Hct 26.6 L 25.3 L MCV 90.5 91.0 MCH 33.3 H 32.4 MCHC 36.8 H 35.6 H RDW 17.7 H 17.9 H Plt Count 75 L 79 L MPV 11.3 12.0 Immature Gran % (Auto) 0.7 H Neut % (Auto) 72.5 Lymph % (Auto) 12.3 L [place] % (Auto) 13.1 H Eos % (Auto) 0.6 Baso % (Auto) 0.8 Lymph # (Auto) 1.7 [place] # (Auto) 1.8 H Eos # (Auto) 0.1 Baso # (Auto) 0.1 Abs Immat Gran (auto) 0.10 H Absolute Neuts (auto) 10.2 H Absolute Nucleated RBC 0.020 H 0.000 Nucleated RBC % (auto) 0.1 0.0 Smear Tech's Comments VERIFIED Sodium 139 137 Potassium 3.8 3.9 Chloride 98 98 Carbon Dioxide 22 21 L Anion Gap 23 H 22 H BUN 60 H 61 H Creatinine 5.67 H* 5.58 H* Estim Creat Clear Calc 8.2 8.4 Estimated GFR 8 8 Random Glucose 112 Fasting Glucose 114 H Calcium 9.2 D 9.1 Magnesium 2.0 Total Bilirubin 28.7 H 28.1 H Direct Bilirubin 18.6 H AST 66 H 66 H ALT 34 H 32 H Alkaline Phosphatase 156 H 150 H Troponin I High Sens 19.1 H D Total Protein 5.3 L 5.1 L Albumin 3.6 3.4 L Microbiology Microbiology Results: Microbiology 07/04/23 17:58 Blood - Venous Blood Culture - Final No growth after 5 days. 07/04/23 17:44 Blood - Venous Blood Culture - Final No growth after 5 days. 07/04/23 15:30 Ascites Fluid Gram Stain - Final 07/04/23 15:30 Ascites Fluid Routine Culture - Final No growth after 2 days 07/04/23 15:30 Ascites Fluid Anaerobic Culture - Final NO GROWTH AFTER 5 DAYS 07/04/23 17:34 Urine clean catch - Clean Catch Midstream Urine Culture - Final Procedures Date of Service Date of Service: 07/13/23 Assessment & Plan Assessment and plan (1) Acute kidney injury: Status: Acute Assessment and Plan: Acute Kidney Injury due to tubular injury Has HRS 2 at baseline; Serum creatinine worse; Superimposed ischemic ATN due to blood loss Creatinine has peaked and plateaued Likely will need renal replacement soon if no improvement No over s/s of uremia today Continue current supportive care for now Time Spent With Patient Time: Total time managing care of this patient today ____ minutes. Progress Note: Quality Stroke Does the patient have a stroke diagnosis?: No
[2023-07-12] MEDS: Sennosides 8.6 MG TABLET 17.2 MG PO (20:43)
[2023-07-12] MEDS: Melatonin 3 MG TABLET 6 MG PO (20:43)
[2023-07-12] MEDS: Acetaminophen 325 MG TABLET 650 MG PO (20:44)
[2023-07-12] MEDS: Benzonatate 100 MG CAPSULE 200 MG PO (20:44)
[2023-07-13] VITALS (7 sets, daily range): BP systolic 95–120; BP diastolic 51–83; PULSE 53–64; RESP 15–20; TEMP 36.3–37.2; O2SAT 94–97
[2023-07-13 07:35] LABS: Hemoglobin 9.9 g/dl (12.0-16.0); Mean Corpuscular HGB Conc 35.4 g/dl (31.0-35.0); Mean Corpuscular Hemoglobin 32.9 pg (27.0-33.0); Mean Platelet Volume 10.6 fL (9.4-12.3); Red Blood Count 3.01 X10*6/uL (4.20-5.50); Red Cell Distribution Width 18.6 % (11.0-16.0); White Blood Count 12.1 X10*3/uL (4.8-10.8)
[2023-07-13 07:38] LABS: Platelet Count 79 X10*3/uL (160-400)
[2023-07-13 07:49] LABS: Anion Gap 20 (12-20); Blood Urea Nitrogen 65 mg/dL (9-16); Calcium 9.5 mg/dL (8.4-10.2); Carbon Dioxide 26 mmol/L (22-29); Chloride 98 mmol/L (96-108); Estimated Glomerular Filt Rate 6; Glucose Fasting 102 mg/dL (60-99); Potassium 3.7 mmol/L (3.3-5.1); Sodium 140 mmol/L (135-145)
[2023-07-13 09:13] LABS: Alanine Aminotransferase 30 U/L (0-31); Albumin Level 3.5 g/dL (3.5-5.0); Alkaline Phosphatase 161 U/L (39-117); Aspartate Amino Transferase 63 U/L (5-31); Bilirubin Total 29.6 mg/dL (0.0-1.0); Total Protein 5.2 g/dL (6.5-8.0)
[2023-07-13 09:15] LABS: Bilirubin Direct 19.5 mg/dL (0.0-0.5)
[2023-07-13] MEDS: rifAXIMin 550 MG TABLET PO ×2 (09:21→21:47)
[2023-07-13] MEDS: Lactulose 20 GM/30 ML SOLUTION PO (09:21)
[2023-07-13] MEDS: Metoprolol Tartrate 12.5 MG HALFTAB PO ×2 (09:22→21:46)
[2023-07-13] MEDS: 0.9 % Sodium Chloride Flush 3 ML SYRINGE IVFLUSH ×3 (09:22→21:47)
[2023-07-13] MEDS: Folic Acid 1 MG TABLET PO (09:22)
[2023-07-13] MEDS: Thiamine HCL 100 MG TABLET PO (09:22)
[2023-07-13] MEDS: Magnesium Oxide 400 MG TABLET PO (09:22)
[2023-07-13] MEDS: Midodrine HCl 10 MG TABLET PO ×3 (09:22→21:47)
--- NOTE | 2023-07-13 13:04 | MHC.CM.PN ---
Per ROUNDS discussion, Patient may need to start HD; PT is recommending STR and CM will continue to follow.
--- NOTE | 2023-07-13 16:46 | HO.PM.IMPN ---
Subjective Subjective Date of Service: 07/13/23 Interval History: seen and evaluated this morning feels more comfortable but still not making much of urine Cr trending up no acidemia or uremia symptoms Review of Systems Review of Systems: Yes all other systems are reviewed and are negative Physical Exam Vital Signs: Vital Signs: Last Vital Signs Temp 98.7 F 07/13/23 15:12 Pulse 63 07/13/23 15:12 Resp 20 07/13/23 15:12 BP 120/59 L 07/13/23 15:12 Pulse Ox 95 07/13/23 15:12 O2 Del Method Room Air 07/13/23 15:12 BMI result Body Mass Index 23.7 Const: Other: Constitutional : Awake, interactive, not in distress, jaundiced Neck : Normal inspection, Supple Cardiovascular : RRR, no JVP, no lower extremity edema Respiratory : good bilateral air entry, no crackles, wheezes or rhonchi Gastrointestinal: soft, lax, Normal bowel sounds, distended, non-tender Skin : Warm, Dry Neurological : Alert & oriented x3, No focal deficit Objective Data Active Medications Acetaminophen (Acetaminophen 325 Mg Tablet) 650 mg PO Q6H PRN PRN Reason: Pain, Mild (Pain Scale 1-3) Last Admin: 07/12/23 20:44 Dose: 650 mg Documented By: EILEEN Benzonatate (Benzonatate 100 Mg Capsule) 200 mg PO TID PRN PRN Reason: Cough Last Admin: 07/12/23 20:44 Dose: 200 mg Documented By: EILEEN Diphenhydramine HCl (Diphenhydramine Hcl 25 Mg Capsule) 25 mg PO Q6H PRN PRN Reason: Itching Last Admin: 07/06/23 17:18 Dose: 25 mg Documented By: HERBERTH Folic Acid (Folic Acid 1 Mg Tablet) 1 mg PO DAILY [facility] Last Admin: 07/13/23 09:22 Dose: 1 mg Documented By: SOFYA Dextrose (D10) 250 mls @ 750 mls/hr IV Q15M PRN PRN Reason: per Hypoglycemia Standing Ord. Last Infusion: 07/04/23 14:49 Dose: Infused Documented By: VERENA Lactulose (Lactulose 20 Gm/30 Ml Solution) 20 gm PO DAILY [facility] Last Admin: 07/13/23 09:21 Dose: 20 gm Documented By: SOFYA Magnesium Oxide (Magnesium Oxide 400 Mg Tablet) 400 mg PO DAILY [facility] Last Admin: 07/13/23 09:22 Dose: 400 mg Documented By: SOFYA Melatonin (Melatonin 3 Mg Tablet) 6 mg PO BEDTIME PRN PRN Reason: Insomnia Last Admin: 07/12/23 20:43 Dose: 6 mg Documented By: EILEEN Metoprolol Tartrate (Metoprolol Tartrate 12.5 Mg Halftab) 12.5 mg PO BID [facility]; Protocol Last Admin: 07/13/23 09:22 Dose: 12.5 mg Documented By: SOFYA Midodrine (Midodrine Hcl 10 Mg Tablet) 10 mg PO TID [facility] Last Admin: 07/13/23 15:47 Dose: 10 mg Documented By: SOFYA Ondansetron HCl (Ondansetron Hcl 4 Mg/2 Ml Vial) 4 mg IVPUSH Q8H PRN PRN Reason: Nausea and Vomiting Last Admin: 07/09/23 21:20 Dose: 4 mg Documented By: EILEEN Rifaximin (Rifaximin 550 Mg Tablet) 550 mg PO BID [facility] Last Admin: 07/13/23 09:21 Dose: 550 mg Documented By: SOFYA Senna (Sennosides 8.6 Mg Tablet) 17.2 mg PO BEDTIME PRN PRN Reason: Constipation Last Admin: 07/12/23 20:43 Dose: 17.2 mg Documented By: EILEEN Sodium Chloride (0.9 % Sodium Chloride Flush 3 Ml Syringe) [address] [facility] Last Admin: 07/13/23 15:47 Dose: 3 ml Documented By: SOFYA Thiamine HCl (Thiamine Hcl 100 Mg Tablet) 100 mg PO DAILY [facility] Last Admin: 07/13/23 09:22 Dose: 100 mg Documented By: SOFYA Labs 07/13/23 06:50 07/13/23 06:50 Labs: Laboratory Results - last 24 hr 07/13/23 06:50 MCV 93.0 MCH 32.9 MCHC 35.4 H RDW 18.6 H Plt Count 79 L MPV 10.6 Absolute Nucleated RBC 0.000 Nucleated RBC % (auto) 0.0 Anion Gap 20 Estim Creat Clear Calc 7.0 Estimated GFR 6 Fasting Glucose 102 H Calcium 9.5 Total Bilirubin 29.6 H Direct Bilirubin 19.5 H AST 63 H ALT 30 Alkaline Phosphatase 161 H Total Protein 5.2 L Albumin 3.5 Assessment and Plan (1) Acute kidney injury: Status: Acute (2) Hemoperitoneum: Status: Acute (3) Acute blood loss anemia: Status: Acute (4) Liver cirrhosis: Status: Acute (5) Hepatorenal syndrome: Status: Acute Plan 63F PMH alcoholic cirrhosis complicated by portal hypertension and ascites, alcohol use disorder, gout, hypertension, GERD presented with worsening fatigue and jaundice, found to have acute kidney injury and worsening liver function, overnight 07/05-07/06 - sycnopal episode, hypotension (not due ot sepsis, due to bleeding), drop in hgb, worsening mentation, transfered to ICU, found to have hemoperitoneum, transfused, hgb stabilized, downgraded to medical floor 07/09/23, now complicated by anuria, worsening renal function acute kidney injury 2/2 Hepatorenal syndrome holding diuretics s/p Albumin and Octreotide continue midodrine continue to worsen ay 6.5 nephrology following, keep NPO overnight, consider dialysis tomorrow if worse follow I\O, BMP acute blood loss anemia in alcoholic cirrhosis due to hemoperitoneum monitor h and h stabilized acute metabolic acidosis resolved Acute hyperkalemia resolved acute decompensated hepatic cirrhosis complicated by ascites, portal vein hypertension NOT a candidate for transplant stopped prednisolone for bleed paracentesis performed by IR 07/04/23 does not indicate SBP, hold on Abx - due to abd pain and distension 2L removed 07/06/23 continue lactulose, rifaximin chronic thrombocytopenia related to cirrhosis alcohol use disorder in early remission. Relapse on Tuesday without any further alcohol use DVT prophylaxis-SCPs due to bleed Full code reason for continued hospitalization: closely monitor renal function Quality Stroke Does the patient have a stroke diagnosis?: No VTE Prior VTE?: No VTE Risk Level:: Medical - moderate - high VTE Device Contraindication: N/A - Device Ordered VTE Drug Contraindication: Treatment Not Indicated
--- NOTE | 2023-07-13 20:03 | P.PNNP_ITS ---
Subjective Subjective Date of Service: 07/13/23 Interval history: seen and evaluated this morning ; still not making much of urine; Serum creatinine worse; No uremic symptoms Physical Exam 2 Vital Signs: Vital Signs: Last Vital Signs Temp 98.7 F 07/13/23 15:12 Pulse 63 07/13/23 15:12 Resp 20 07/13/23 15:12 BP 120/59 L 07/13/23 15:12 Pulse Ox 95 07/13/23 15:12 O2 Del Method Room Air 07/13/23 15:12 BMI result Body Mass Index 23.7 Const: General: comfortable and no acute distress HEENT: Head: Yes normocephalic Mouth: Normal oral and palatal mucosa present Eyes: EOM: EOMs intact bilaterally Neck: Neck: Yes supple Resp: Auscultation: clear to auscultation bilaterally Cardio: Jugular venous distension: no JVD Rate: regular rate GI: Palpation (GI): Soft to palpation Auscultation: normal bowel sounds : General: Yes no CVA tenderness Back/Spine/Pelvis: Back: no CVA tenderness Skin: General skin exam: no rashes or lesions noted Neuro: General: moves all extremities Objective Data Labs 07/13/23 06:50 07/13/23 06:50 Labs: Laboratory Results - last 24 hr 07/13/23 06:50 WBC 12.1 H RBC 3.01 L Hgb 9.9 L Hct 28.0 L MCV 93.0 MCH 32.9 MCHC 35.4 H RDW 18.6 H Plt Count 79 L MPV 10.6 Absolute Nucleated RBC 0.000 Nucleated RBC % (auto) 0.0 Sodium 140 Potassium 3.7 Chloride 98 Carbon Dioxide 26 Anion Gap 20 BUN 65 H Creatinine 6.71 H* Estim Creat Clear Calc 7.0 Estimated GFR 6 Fasting Glucose 102 H Calcium 9.5 Total Bilirubin 29.6 H Direct Bilirubin 19.5 H AST 63 H ALT 30 Alkaline Phosphatase 161 H Total Protein 5.2 L Albumin 3.5 Microbiology Microbiology Results: Microbiology 07/04/23 17:58 Blood - Venous Blood Culture - Final No growth after 5 days. 07/04/23 17:44 Blood - Venous Blood Culture - Final No growth after 5 days. 07/04/23 15:30 Ascites Fluid Gram Stain - Final 07/04/23 15:30 Ascites Fluid Routine Culture - Final No growth after 2 days 07/04/23 15:30 Ascites Fluid Anaerobic Culture - Final NO GROWTH AFTER 5 DAYS 07/04/23 17:34 Urine clean catch - Clean Catch Midstream Urine Culture - Final Procedures Date of Service Date of Service: 07/13/23 Assessment & Plan Assessment and plan (1) Acute kidney injury: Status: Acute Plan Acute Kidney Injury due to tubular injury Has HRS 2 at baseline; Serum creatinine worse; UO poor Likely will need renal replacement soon- No indication today NPO from midnight; If renal function worse AM, will need permcath Continue current supportive care for now Progress Note: Quality Stroke Does the patient have a stroke diagnosis?: No
[2023-07-14 04:00] VITALS: BP 104/58; PULSE 60; RESP 20; TEMP 36.4; O2SAT 96
[2023-07-14 07:13] LABS: INTERNATIONAL NORM RATIO 1.6 (0.9-1.1); Prothrombin Time 19.7 SEC (11.1-13.3)
[2023-07-14 07:21] LABS: Hematocrit 26.8 % (37.0-47.0); Hemoglobin 9.5 g/dl (12.0-16.0); Mean Corpuscular HGB Conc 35.4 g/dl (31.0-35.0); Mean Corpuscular Hemoglobin 33.1 pg (27.0-33.0); Mean Corpuscular Volume 93.4 fL (80.0-98.0); Mean Platelet Volume 11.8 fL (9.4-12.3); Red Blood Count 2.87 X10*6/uL (4.20-5.50); Red Cell Distribution Width 18.7 % (11.0-16.0); White Blood Count 12.8 X10*3/uL (4.8-10.8)
[2023-07-14 07:22] LABS: Platelet Count 82 X10*3/uL (160-400)
[2023-07-14 07:37] LABS: Alanine Aminotransferase 25 U/L (0-31); Albumin Level 3.3 g/dL (3.5-5.0); Alkaline Phosphatase 165 U/L (39-117); Anion Gap 19 (12-20); Aspartate Amino Transferase 64 U/L (5-31); Blood Urea Nitrogen 71 mg/dL (9-16); Calcium 9.3 mg/dL (8.4-10.2); Carbon Dioxide 26 mmol/L (22-29); Chloride 97 mmol/L (96-108); Glucose Random 96 mg/dL (60-115); Potassium 3.9 mmol/L (3.3-5.1); Sodium 138 mmol/L (135-145); Total Protein 5.1 g/dL (6.5-8.0)
[2023-07-14 07:38] LABS: Creatinine Clr Calc Pharmacy 6.5; Estimated Glomerular Filt Rate 6
[2023-07-14 07:46] LABS: Bilirubin Total 28.7 mg/dL (0.0-1.0)
[2023-07-14 07:54] LABS: Bilirubin Direct 19.2 mg/dL (0.0-0.5)
[2023-07-14 08:00] VITALS: BP 104/56; PULSE 66; RESP 20; TEMP 37.1; O2SAT 94
[2023-07-14] MEDS: Midodrine HCl 10 MG TABLET PO ×3 (09:04→21:06)
--- NOTE | 2023-07-14 09:35 | P.PNNP_ITS ---
Subjective Subjective Date of Service: 07/14/23 Interval history: seen and evaluated this morning ; still not making much of urine; Serum creatinine worse; No uremic symptoms Physical Exam 2 Vital Signs: Vital Signs: Last Vital Signs Temp 98.8 F 07/14/23 08:00 Pulse 66 07/14/23 08:00 Resp 20 07/14/23 08:00 BP 104/56 L 07/14/23 08:00 Pulse Ox 94 07/14/23 08:00 O2 Del Method Room Air 07/14/23 08:00 BMI result Body Mass Index 23.7 Const: General: comfortable and no acute distress HEENT: Head: Yes normocephalic Mouth: Normal oral and palatal mucosa present Eyes: EOM: EOMs intact bilaterally Neck: Neck: Yes supple Resp: Auscultation: clear to auscultation bilaterally and diminished lung sounds Cardio: Jugular venous distension: no JVD Rate: regular rate Heart sounds: Murmur heart sound present GI: Palpation (GI): Soft to palpation Auscultation: normal bowel sounds : General: Yes no CVA tenderness Back/Spine/Pelvis: Back: no CVA tenderness Skin: General skin exam: no rashes or lesions noted Neuro: General: moves all extremities Objective Data Labs 07/14/23 06:29 07/14/23 06:29 Labs: Laboratory Results - last 24 hr 07/14/23 06:29 WBC 12.8 H RBC 2.87 L Hgb 9.5 L Hct 26.8 L MCV 93.4 MCH 33.1 H MCHC 35.4 H RDW 18.7 H Plt Count 82 L MPV 11.8 Absolute Nucleated RBC 0.000 Nucleated RBC % (auto) 0.0 PT 19.7 H D INR 1.6 H Sodium 138 Potassium 3.9 Chloride 97 Carbon Dioxide 26 Anion Gap 19 BUN 71 H Creatinine 7.17 H* Estim Creat Clear Calc 6.5 Estimated GFR 6 Random Glucose 96 Calcium 9.3 Total Bilirubin 28.7 H Direct Bilirubin 19.2 H AST 64 H ALT 25 Alkaline Phosphatase 165 H Total Protein 5.1 L Albumin 3.3 L Microbiology Microbiology Results: Microbiology 07/04/23 17:58 Blood - Venous Blood Culture - Final No growth after 5 days. 07/04/23 17:44 Blood - Venous Blood Culture - Final No growth after 5 days. 07/04/23 15:30 Ascites Fluid Gram Stain - Final 07/04/23 15:30 Ascites Fluid Routine Culture - Final No growth after 2 days 07/04/23 15:30 Ascites Fluid Anaerobic Culture - Final NO GROWTH AFTER 5 DAYS 07/04/23 17:34 Urine clean catch - Clean Catch Midstream Urine Culture - Final Procedures Date of Service Date of Service: 07/14/23 Assessment & Plan Assessment and plan (1) Acute kidney injury: Status: Acute Assessment and Plan: Acute Kidney Injury due to tubular injury Has HRS 2 at baseline; Serum creatinine worse; Superimposed ischemic ATN due to blood loss Creatinine remains elevated We will proceed with PermCath insertion and initiate renal replacement therapy. Concur with other medical managed Time Spent With Patient Time: Total time managing care of this patient today ____ minutes. Progress Note: Quality Stroke Does the patient have a stroke diagnosis?: No
[2023-07-14 10:32] VITALS: BP 105/56; PULSE 72; RESP 20; TEMP 36.6; O2SAT 96
[2023-07-14] MEDS: Folic Acid 1 MG TABLET PO (10:58)
[2023-07-14] MEDS: Magnesium Oxide 400 MG TABLET PO (10:58)
[2023-07-14] MEDS: rifAXIMin 550 MG TABLET PO (10:58)
[2023-07-14] MEDS: Thiamine HCL 100 MG TABLET PO (10:58)
[2023-07-14] MEDS: Lactulose 20 GM/30 ML SOLUTION PO (10:58)
[2023-07-14] MEDS: 0.9 % Sodium Chloride Flush 3 ML SYRINGE IVFLUSH ×3 (10:58→21:06)
--- NOTE | 2023-07-14 11:38 | PM.PROC ---
Brief Operative Note Date of procedure: 07/14/23 Pre-op diagnosis: Renal failure, needs dialysis Post-op diagnosis: same Procedure: Right IJ Permcath 23 cm Right IJ permacath placed with US and Fluoro. Tip at cavoatrial junction. Ok for use. Anesthesia: other (Fentalyl) Condition: stable Disposition: floor
[2023-07-14 11:55] VITALS: BP 114/59; PULSE 68; RESP 20; TEMP 36.6; O2SAT 96
--- NOTE | 2023-07-14 14:25 | HO.PM.IMPN ---
Subjective Subjective Date of Service: 07/14/23 Interval History: seen and evaluated this morning not making much of urine Cr trending up to 7.1 with BUN 71 no acidemia or uremia symptoms Review of Systems Review of Systems: Yes all other systems are reviewed and are negative Physical Exam Vital Signs: Vital Signs: Last Vital Signs Temp 97.9 F 07/14/23 11:55 Pulse 68 07/14/23 11:55 Resp 20 07/14/23 11:55 BP 114/59 L 07/14/23 11:55 Pulse Ox 96 07/14/23 11:55 O2 Del Method Room Air 07/14/23 11:55 BMI result Body Mass Index 23.7 Const: Other: Constitutional : Awake, interactive, not in distress, jaundiced Neck : Normal inspection, Supple Cardiovascular : RRR, no JVP, no lower extremity edema Respiratory : good bilateral air entry, no crackles, wheezes or rhonchi Gastrointestinal: soft, lax, Normal bowel sounds, distended, non-tender Skin : Warm, Dry Neurological : Alert & oriented x3, No focal deficit Objective Data Active Medications Acetaminophen (Acetaminophen 325 Mg Tablet) 650 mg PO Q6H PRN PRN Reason: Pain, Mild (Pain Scale 1-3) Last Admin: 07/12/23 20:44 Dose: 650 mg Documented By: EILEEN Benzonatate (Benzonatate 100 Mg Capsule) 200 mg PO TID PRN PRN Reason: Cough Last Admin: 07/12/23 20:44 Dose: 200 mg Documented By: EILEEN Diphenhydramine HCl (Diphenhydramine Hcl 25 Mg Capsule) 25 mg PO Q6H PRN PRN Reason: Itching Last Admin: 07/06/23 17:18 Dose: 25 mg Documented By: HERBERTH Folic Acid (Folic Acid 1 Mg Tablet) 1 mg PO DAILY [facility] Last Admin: 07/14/23 10:58 Dose: 1 mg Documented By: DARCY Dextrose (D10) 250 mls @ 750 mls/hr IV Q15M PRN PRN Reason: per Hypoglycemia Standing Ord. Last Infusion: 07/04/23 14:49 Dose: Infused Documented By: VERENA Lactulose (Lactulose 20 Gm/30 Ml Solution) 20 gm PO DAILY [facility] Last Admin: 07/14/23 10:58 Dose: 20 gm Documented By: DARCY Magnesium Oxide (Magnesium Oxide 400 Mg Tablet) 400 mg PO DAILY [facility] Last Admin: 07/14/23 10:58 Dose: 400 mg Documented By: DARCY Melatonin (Melatonin 3 Mg Tablet) 6 mg PO BEDTIME PRN PRN Reason: Insomnia Last Admin: 07/12/23 20:43 Dose: 6 mg Documented By: EILEEN Metoprolol Tartrate (Metoprolol Tartrate 12.5 Mg Halftab) 12.5 mg PO BID [facility]; Protocol Last Admin: 07/14/23 09:21 Dose: Not Given Documented By: DARCY Non-Admin Reason: Off Unit: Surgery Midodrine (Midodrine Hcl 10 Mg Tablet) 10 mg PO TID [facility] Last Admin: 07/14/23 09:04 Dose: 10 mg Documented By: DARCY Ondansetron HCl (Ondansetron Hcl 4 Mg/2 Ml Vial) 4 mg IVPUSH Q8H PRN PRN Reason: Nausea and Vomiting Last Admin: 07/09/23 21:20 Dose: 4 mg Documented By: EILEEN Rifaximin (Rifaximin 550 Mg Tablet) 550 mg PO BID [facility] Last Admin: 07/14/23 10:58 Dose: 550 mg Documented By: DARCY Senna (Sennosides 8.6 Mg Tablet) 17.2 mg PO BEDTIME PRN PRN Reason: Constipation Last Admin: 07/12/23 20:43 Dose: 17.2 mg Documented By: EILEEN Sodium Chloride (0.9 % Sodium Chloride Flush 3 Ml Syringe) 3 ml IVFLUSH QSHIFT [facility] Last Admin: 07/14/23 10:58 Dose: 3 ml Documented By: DARCY Thiamine HCl (Thiamine Hcl 100 Mg Tablet) 100 mg PO DAILY [facility] Last Admin: 07/14/23 10:58 Dose: 100 mg Documented By: DARCY Labs 07/14/23 06:29 07/14/23 06:29 Labs: Laboratory Results - last 24 hr 07/14/23 06:29 MCV 93.4 MCH 33.1 H MCHC 35.4 H RDW 18.7 H Plt Count 82 L MPV 11.8 Absolute Nucleated RBC 0.000 Nucleated RBC % (auto) 0.0 PT 19.7 H D INR 1.6 H Anion Gap 19 Estim Creat Clear Calc 6.5 Estimated GFR 6 Random Glucose 96 Calcium 9.3 Total Bilirubin 28.7 H Direct Bilirubin 19.2 H AST 64 H ALT 25 Alkaline Phosphatase 165 H Total Protein 5.1 L Albumin 3.3 L Assessment and Plan (1) Acute hemodialysis patient: Status: Acute (2) Acute kidney injury: Status: Acute (3) Acute liver failure: Status: Acute (4) Hemoperitoneum: Status: Acute (5) Acute blood loss anemia: Status: Acute (6) Liver cirrhosis: Status: Acute Plan 63F PMH alcoholic cirrhosis complicated by portal hypertension and ascites, alcohol use disorder, gout, hypertension, GERD presented with worsening fatigue and jaundice, found to have acute kidney injury and worsening liver function, overnight 07/05-07/06 - sycnopal episode, hypotension (not due ot sepsis, due to bleeding), drop in hgb, worsening mentation, transfered to ICU, found to have hemoperitoneum, transfused, hgb stabilized, downgraded to medical floor 07/09/23, now complicated by anuria, worsening renal function acute kidney injury 2/2 Hepatorenal syndrome holding diuretics s/p Albumin and Octreotide continue midodrine continue to worsen at 7.1 nephrology following, Place PermaCath and start HD follow I\O, BMP acute blood loss anemia in alcoholic cirrhosis due to hemoperitoneum monitor h and h stabilized acute metabolic acidosis resolved Acute hyperkalemia resolved acute decompensated hepatic cirrhosis complicated by ascites, portal vein hypertension NOT a candidate for transplant stopped prednisolone for bleed paracentesis performed by IR 07/04/23 does not indicate SBP, hold on Abx - due to abd pain and distension 2L removed 07/06/23 continue lactulose, rifaximin chronic thrombocytopenia related to cirrhosis alcohol use disorder in early remission. Relapse on Tuesday without any further alcohol use DVT prophylaxis-SCPs due to bleed Full code reason for continued hospitalization: closely monitor renal function, starting dialysis Quality Stroke Does the patient have a stroke diagnosis?: No VTE Prior VTE?: No VTE Risk Level:: Medical - moderate - high VTE Device Contraindication: N/A - Device Ordered VTE Drug Contraindication: Treatment Not Indicated
[2023-07-14] MEDS: ondansetron HCL 4 MG/2 ML VIAL IVPUSH (14:55)
[2023-07-14 15:19] VITALS: BP 111/66; PULSE 68; RESP 14; TEMP 36.9; O2SAT 97
[2023-07-14 19:19] VITALS: BP 100/64; PULSE 72; RESP 14; TEMP 36.9; O2SAT 98
[2023-07-14] MEDS: Metoprolol Tartrate 12.5 MG HALFTAB PO (21:06)
[2023-07-15] VITALS: BP 109/61; PULSE 56; RESP 20; TEMP 36.8; O2SAT 98
[2023-07-15] MEDS: oxyCODONE HCl Immed Release 5 MG TABLET PO (01:12)
[2023-07-15 03:09] VITALS: BP 96/50; PULSE 70; RESP 20; TEMP 36.5; O2SAT 96
[2023-07-15 07:28] LABS: Anion Gap 17 (12-20); Blood Urea Nitrogen 64 mg/dL (9-16); Calcium 9.3 mg/dL (8.4-10.2); Carbon Dioxide 27 mmol/L (22-29); Chloride 96 mmol/L (96-108); Creatinine Clr Calc Pharmacy 7.8; Estimated Glomerular Filt Rate 7; Glucose Random 95 mg/dL (60-115); Potassium 3.6 mmol/L (3.3-5.1); Sodium 136 mmol/L (135-145)
[2023-07-15 09:09] LABS: HBS Num1 6.58 mIU/mL (0-7.99); HBc Num1 0.09 S/CO (0.00-0.79); HBsAGNum1 0.25 S/CO (0.00-0.99); Hepatitis A Antibody IgM 0.13 Index (0-0.79); Hepatitis B Core Antibody Nonreactive (Nonreactive); Hepatitis B Surface Antigen Negative (Negative); ~HepC Num1 0.09 S/CO (0.00-0.79); ~Hepatitis A Antibody IgM Nonreactive (Nonreactive); ~Hepatitis B Surface Antibody NONREACTIVE (Nonreactive); ~Hepatitis C Antibody Nonreactive (Nonreactive)
--- NOTE | 2023-07-15 10:31 | MHC.CM.PN ---
Per ROUNDS discussion, Patient is not yet medically cleared for dc (monitoring renal function/starting HD); PT is recommending STR and CM will continue to follow.
[2023-07-15] MEDS: Midodrine HCl 10 MG TABLET PO ×3 (10:56→20:42)
[2023-07-15] MEDS: Lactulose 20 GM/30 ML SOLUTION PO (10:56)
[2023-07-15] MEDS: Thiamine HCL 100 MG TABLET PO (10:56)
[2023-07-15] MEDS: Magnesium Oxide 400 MG TABLET PO (10:56)
[2023-07-15] MEDS: Folic Acid 1 MG TABLET PO (10:56)
[2023-07-15] MEDS: 0.9 % Sodium Chloride Flush 3 ML SYRINGE IVFLUSH ×3 (10:57→20:43)
[2023-07-15 12:00] VITALS: BP 104/62; PULSE 70; RESP 14; TEMP 36.6; O2SAT 95
--- NOTE | 2023-07-15 12:14 | HO.PM.IMPN ---
Subjective Subjective Date of Service: 07/15/23 Interval History: seen and evaluated this morning tolerated dialysis well yesterday no acidemia or uremia symptoms For 2nd dialysis session today Review of Systems Review of Systems: Yes all other systems are reviewed and are negative Physical Exam Vital Signs: Vital Signs: Last Vital Signs Temp 97.7 F 07/15/23 03:09 Pulse 70 07/15/23 03:09 Resp 20 07/15/23 03:09 BP 96/50 L 07/15/23 03:09 Pulse Ox 96 07/15/23 03:09 O2 Del Method Room Air 07/15/23 03:09 BMI result Body Mass Index 23.7 Const: Other: Constitutional : Awake, interactive, not in distress, jaundiced Neck : Normal inspection, Supple Cardiovascular : RRR, no JVP, no lower extremity edema Respiratory : good bilateral air entry, no crackles, wheezes or rhonchi Gastrointestinal: soft, lax, Normal bowel sounds,moderatly distended, non-tender Skin : Warm, Dry Neurological : Alert & oriented x3, No focal deficit Objective Data Active Medications Acetaminophen (Acetaminophen 325 Mg Tablet) 650 mg PO Q6H PRN PRN Reason: Pain, Mild (Pain Scale 1-3) Last Admin: 07/12/23 20:44 Dose: 650 mg Documented By: EILEEN Benzonatate (Benzonatate 100 Mg Capsule) 200 mg PO TID PRN PRN Reason: Cough Last Admin: 07/12/23 20:44 Dose: 200 mg Documented By: EILEEN Diphenhydramine HCl (Diphenhydramine Hcl 25 Mg Capsule) 25 mg PO Q6H PRN PRN Reason: Itching Last Admin: 07/06/23 17:18 Dose: 25 mg Documented By: HERBERTH Folic Acid (Folic Acid 1 Mg Tablet) 1 mg PO DAILY [facility] BEDS AT [facility] Last Admin: 07/15/23 10:56 Dose: 1 mg Documented By: DARCY Dextrose (D10) 250 mls @ 750 mls/hr IV Q15M PRN PRN Reason: per Hypoglycemia Standing Ord. Last Infusion: 07/04/23 14:49 Dose: Infused Documented By: VERENA Lactulose (Lactulose 20 Gm/30 Ml Solution) 20 gm PO DAILY [facility]S [facility]CLUDE 234 BEDS AT [facility] Last Admin: 07/15/23 10:56 Dose: 20 gm Documented By: DARCY Magnesium Oxide (Magnesium Oxide 400 Mg Tablet) 400 mg PO DAILY [facility]S INCLUDE 234 BEDS AT [facility] Last Admin: 07/15/23 10:56 Dose: 400 mg Documented By: DARCY Melatonin (Melatonin 3 Mg Tablet) 6 mg PO BEDTIME PRN PRN Reason: Insomnia Last Admin: 07/12/23 20:43 Dose: 6 mg Documented By: EILEEN Metoprolol Tartrate (Metoprolol Tartrate 12.5 Mg Halftab) 12.5 mg PO BID COUNTS INCLUDE 234 BEDS AT [facility]; Protocol Last Admin: 07/15/23 07:58 Dose: Not Given Documented By: DARCY Non-Admin Reason: B/P 96/50 HR 75 Midodrine (Midodrine Hcl 10 Mg Tablet) 10 mg PO TID COUNTS INCLUDE 234 BEDS AT [facility] Last Admin: 07/15/23 10:56 Dose: 10 mg Documented By: DARCY Ondansetron HCl (Ondansetron Hcl 4 Mg/2 Ml Vial) 4 mg IVPUSH Q8H PRN PRN Reason: Nausea and Vomiting Last Admin: 07/14/23 14:55 Dose: 4 mg Documented By: CHUY Oxycodone HCl (Oxycodone Hcl Immed Release 5 Mg Tablet) 5 mg PO Q4H PRN PRN Reason: Pain, Severe (Pain Scale 7-10) Last Admin: 07/15/23 01:12 Dose: 5 mg Documented By: REBEKAH Senna (Sennosides 8.6 Mg Tablet) 17.2 mg PO BEDTIME PRN PRN Reason: Constipation Last Admin: 07/12/23 20:43 Dose: 17.2 mg Documented By: EILEEN Sodium Chloride (0.9 % Sodium Chloride Flush 3 Ml Syringe) 3 ml IVFLUSH QSHIFT COUNTS INCLUDE 234 BEDS AT [facility] Last Admin: 07/15/23 10:57 Dose: 3 ml Documented By: DARCY Thiamine HCl (Thiamine Hcl 100 Mg Tablet) 100 mg PO DAILY [facility]S [facility]CLUDE 234 BEDS AT [facility] Last Admin: 07/15/23 10:56 Dose: 100 mg Documented By: DARCY Labs 07/14/23 06:29 07/15/23 06:32 Labs: Laboratory Results - last 24 hr 07/15/23 07/15/23 06:32 07:34 Hold Purple Top SEE NOTE Anion Gap 17 Estim Creat Clear Calc 7.8 Estimated GFR 7 Random Glucose 95 Calcium 9.3 Hepatitis A IgM Ab Nonreactive Hep Bs Antigen Negative Hep Bs Antibody NONREACTIVE Hep B Core Total Ab Nonreactive Hepatitis C Ab (EIA) Nonreactive Assessment and Plan (1) Acute hemodialysis patient: Status: Acute (2) Acute kidney injury: Status: Acute (3) Acute liver failure: Status: Acute (4) Hemoperitoneum: Status: Acute (5) Acute blood loss anemia: Status: Acute Plan 63F PMH alcoholic cirrhosis complicated by portal hypertension and ascites, alcohol use disorder, gout, hypertension, GERD presented with worsening fatigue and jaundice, found to have acute kidney injury and worsening liver function, overnight 07/05-07/06 - sycnopal episode, hypotension (not due ot sepsis, due to bleeding), drop in hgb, worsening mentation, transfered to ICU, found to have hemoperitoneum, transfused, hgb stabilized, downgraded to medical floor 07/09/23, now complicated by anuria, worsening renal function acute kidney injury 2/2 Hepatorenal syndrome requiring Hemodialysis holding diuretics, s/p Albumin and Octreotide continue midodrine continue Dialysis, session 2 today nephrology following, continue HD follow I\O, BMP acute blood loss anemia in alcoholic cirrhosis stable, due to hemoperitoneum monitor h and h stabilized acute metabolic acidosis resolved Acute hyperkalemia resolved acute decompensated hepatic cirrhosis complicated by ascites, portal vein hypertension NOT a candidate for transplant stopped prednisolone for bleed paracentesis performed by IR 07/04/23 does not indicate SBP, hold on Abx - due to abd pain and distension 2L removed 07/06/23 continue lactulose, rifaximin chronic thrombocytopenia related to cirrhosis alcohol use disorder in early remission. Relapse on Tuesday without any further alcohol use DVT prophylaxis-SCPs due to bleed Full code reason for continued hospitalization: closely monitor renal function, starting dialysis Quality Stroke Does the patient have a stroke diagnosis?: No VTE Prior VTE?: No VTE Risk Level:: Medical - moderate - high VTE Device Contraindication: N/A - Device Ordered VTE Drug Contraindication: Treatment Not Indicated
[2023-07-15] MEDS: ondansetron HCL 4 MG/2 ML VIAL IVPUSH ×2 (13:08→20:27)
--- NOTE | 2023-07-15 15:12 | P.PNNP_ITS ---
Subjective Subjective Date of Service: 07/15/23 Interval history: seen and evaluated this morning on HD. blood pressure borderline during HD treatment. All recent data reviewed. Discussed with the HD RN and hospitalist Physical Exam 2 Vital Signs: Vital Signs: Last Vital Signs Temp 97.8 F 07/15/23 12:00 Pulse 70 07/15/23 12:00 Resp 14 07/15/23 12:00 BP 104/62 07/15/23 12:00 Pulse Ox 95 07/15/23 12:00 O2 Del Method Room Air 07/15/23 12:00 BMI result Body Mass Index 23.7 Const: General: no acute distress Neck: Neck: Yes supple Resp: Auscultation: diminished lung sounds Cardio: Rate: regular rate GI: Palpation (GI): Soft to palpation Neuro: General: moves all extremities Objective Data Labs 07/14/23 06:29 07/15/23 06:32 Labs: Laboratory Results - last 24 hr 07/15/23 07/15/23 06:32 07:34 Hold Purple Top SEE NOTE Sodium 136 Potassium 3.6 Chloride 96 Carbon Dioxide 27 Anion Gap 17 BUN 64 H Creatinine 5.97 H* Estim Creat Clear Calc 7.8 Estimated GFR 7 Random Glucose 95 Calcium 9.3 Hepatitis A IgM Ab Nonreactive Hep Bs Antigen Negative Hep Bs Antibody NONREACTIVE Hep B Core Total Ab Nonreactive Hepatitis C Ab (EIA) Nonreactive Microbiology Microbiology Results: Microbiology 07/04/23 17:58 Blood - Venous Blood Culture - Final No growth after 5 days. 07/04/23 17:44 Blood - Venous Blood Culture - Final No growth after 5 days. 07/04/23 15:30 Ascites Fluid Gram Stain - Final 07/04/23 15:30 Ascites Fluid Routine Culture - Final No growth after 2 days 07/04/23 15:30 Ascites Fluid Anaerobic Culture - Final NO GROWTH AFTER 5 DAYS 07/04/23 17:34 Urine clean catch - Clean Catch Midstream Urine Culture - Final Procedures Date of Service Date of Service: 07/15/23 Assessment & Plan Assessment and plan (1) Acute kidney injury: Status: Acute Plan Acute Kidney Injury due to tubular injury Has HRS 2 at baseline; Serum creatinine worse; UO poor Initiated on renal replacement soon- seen on HD today; for history again tomorrow Continue current supportive care for now Progress Note: Quality Stroke Does the patient have a stroke diagnosis?: No
[2023-07-15 15:52] VITALS: BP 101/55; PULSE 62; RESP 19; TEMP 36.7; O2SAT 98
[2023-07-15 18:37] VITALS: BP 129/54; PULSE 72; TEMP 36.7; O2SAT 100
[2023-07-15] MEDS: Metoprolol Tartrate 12.5 MG HALFTAB PO (20:41)
[2023-07-15] MEDS: Omeprazole 40 MG CAPSULE.DR PO (22:51)
[2023-07-15] MEDS: Calcium Carbonate 750 MG TAB.CHEW PO (22:51)
[2023-07-16] VITALS (7 sets, daily range): BP systolic 92–103; BP diastolic 51–65; PULSE 66–89; RESP 16–20; TEMP 36.6–37.2; O2SAT 96–100
[2023-07-16] MEDS: Omeprazole 40 MG CAPSULE.DR PO (05:17)
[2023-07-16 07:09] LABS: Alanine Aminotransferase 12 U/L (0-31); Albumin Level 3.3 g/dL (3.5-5.0); Alkaline Phosphatase 182 U/L (39-117); Anion Gap 16 (12-20); Aspartate Amino Transferase 67 U/L (5-31); Bilirubin Total 30.3 mg/dL (0.0-1.0); Blood Urea Nitrogen 39 mg/dL (9-16); Calcium 8.7 mg/dL (8.4-10.2); Carbon Dioxide 26 mmol/L (22-29); Chloride 97 mmol/L (96-108); Creatinine Clr Calc Pharmacy 10.6; Estimated Glomerular Filt Rate 10; Glucose Random 117 mg/dL (60-115); Potassium 3.5 mmol/L (3.3-5.1); Sodium 135 mmol/L (135-145); Total Protein 5.3 g/dL (6.5-8.0)
[2023-07-16 07:28] LABS: Bilirubin Direct 20.9 mg/dL (0.0-0.5)
[2023-07-16] MEDS: Magnesium Oxide 400 MG TABLET PO (10:35)
[2023-07-16] MEDS: Folic Acid 1 MG TABLET PO (10:35)
[2023-07-16] MEDS: Thiamine HCL 100 MG TABLET PO (10:35)
[2023-07-16] MEDS: Midodrine HCl 10 MG TABLET PO ×3 (10:35→20:03)
[2023-07-16] MEDS: oxyCODONE HCl Immed Release 5 MG TABLET PO ×2 (10:35→20:03)
[2023-07-16] MEDS: Lactulose 20 GM/30 ML SOLUTION PO (10:35)
[2023-07-16] MEDS: Metoprolol Tartrate 12.5 MG HALFTAB PO ×2 (10:35→20:03)
[2023-07-16] MEDS: 0.9 % Sodium Chloride Flush 3 ML SYRINGE IVFLUSH ×3 (10:36→20:05)
[2023-07-16] MEDS: Albumin Human 25 % 100 ML IV ×2 (11:30→12:38)
--- NOTE | 2023-07-16 13:33 | P.PNIM_ITS ---
Subjective Subjective Date of Service: 07/16/23 Interval History: seen and evaluated this morning tolerated dialysis well no acidemia or uremia symptoms For 3rd dialysis session today Review of Systems Review of Systems: Yes all other systems are reviewed and are negative Physical Exam 2 Vital Signs: Vital Signs: Last Vital Signs Temp 98.1 F 07/16/23 11:07 Pulse 70 07/16/23 11:07 Resp 18 07/16/23 11:07 BP 99/56 L 07/16/23 11:07 Pulse Ox 96 07/16/23 11:07 O2 Del Method Room Air 07/16/23 11:07 BMI result Body Mass Index 23.7 Const: Other: Constitutional : Awake, interactive, not in distress, jaundiced Neck : Normal inspection, Supple Cardiovascular : RRR, no JVP, no lower extremity edema Respiratory : good bilateral air entry, no crackles, wheezes or rhonchi Gastrointestinal: soft, lax, Normal bowel sounds,mildly distended, non-tender Skin : Warm, Dry Neurological : Alert & oriented x3, No focal deficit Objective Data Active Medications Acetaminophen (Acetaminophen 325 Mg Tablet) 650 mg PO Q6H PRN PRN Reason: Pain, Mild (Pain Scale 1-3) Last Admin: 07/12/23 20:44 Dose: 650 mg Documented By: EILEEN Benzonatate (Benzonatate 100 Mg Capsule) 200 mg PO TID PRN PRN Reason: Cough Last Admin: 07/12/23 20:44 Dose: 200 mg Documented By: EILEEN Calcium Carbonate (Calcium Carbonate 750 Mg Tab.Chew) 750 mg PO Q4H PRN PRN Reason: Heartburn Last Admin: 07/15/23 22:51 Dose: 750 mg Documented By: REBEKAH Diphenhydramine HCl (Diphenhydramine Hcl 25 Mg Capsule) 25 mg PO Q6H PRN PRN Reason: Itching Last Admin: 07/06/23 17:18 Dose: 25 mg Documented By: HERBERTH Folic Acid (Folic Acid 1 Mg Tablet) 1 mg PO DAILY [facility] Last Admin: 07/16/23 10:35 Dose: 1 mg Documented By: CORRINA Dextrose (D10) 250 mls @ 750 mls/hr IV Q15M PRN PRN Reason: per Hypoglycemia Standing Ord. Last Infusion: 07/04/23 14:49 Dose: Infused Documented By: VERENA Lactulose (Lactulose 20 Gm/30 Ml Solution) 20 gm PO DAILY [facility] Last Admin: 07/16/23 10:35 Dose: 20 gm Documented By: CORRINA Magnesium Oxide (Magnesium Oxide 400 Mg Tablet) 400 mg PO DAILY [facility] Last Admin: 07/16/23 10:35 Dose: 400 mg Documented By: CORRINA Melatonin (Melatonin 3 Mg Tablet) 6 mg PO BEDTIME PRN PRN Reason: Insomnia Last Admin: 07/12/23 20:43 Dose: 6 mg Documented By: EILEEN Metoprolol Tartrate (Metoprolol Tartrate 12.5 Mg Halftab) 12.5 mg PO BID [facility]; Protocol Last Admin: 07/16/23 10:35 Dose: 12.5 mg Documented By: CORRINA Midodrine (Midodrine Hcl 10 Mg Tablet) 10 mg PO TID [facility] Last Admin: 07/16/23 10:35 Dose: 10 mg Documented By: CORRINA Omeprazole (Omeprazole 40 Mg August.) 40 mg PO DAILY@0630 [facility] Last Admin: 07/16/23 05:17 Dose: 40 mg Documented By: REBEKAH Comments: pt req before dialysis Ondansetron HCl (Ondansetron Hcl 4 Mg/2 Ml Vial) 4 mg IVPUSH Q8H PRN PRN Reason: Nausea and Vomiting Last Admin: 07/15/23 20:27 Dose: 4 mg Documented By: REBEKAH Comments: Per Dr. Robin sofia to give early Senna (Sennosides 8.6 Mg Tablet) 17.2 mg PO BEDTIME PRN PRN Reason: Constipation Last Admin: 07/12/23 20:43 Dose: 17.2 mg Documented By: EILEEN Sodium Chloride (0.9 % Sodium Chloride Flush 3 Ml Syringe) 3 ml IVFLUSH QSHIFT [facility] Last Admin: 07/16/23 10:36 Dose: 3 ml Documented By: CORRINA Thiamine HCl (Thiamine Hcl 100 Mg Tablet) 100 mg PO DAILY [facility] Last Admin: 07/16/23 10:35 Dose: 100 mg Documented By: CORRINA Labs 07/14/23 06:29 07/16/23 06:14 Labs: Laboratory Results - last 24 hr 07/16/23 06:14 Anion Gap 16 Estim Creat Clear Calc 10.6 Estimated GFR 10 Random Glucose 117 H Calcium 8.7 D Total Bilirubin 30.3 H Direct Bilirubin 20.9 H AST 67 H ALT 12 Alkaline Phosphatase 182 H Total Protein 5.3 L Albumin 3.3 L Assessment and Plan (1) Acute hemodialysis patient: Status: Acute (2) Acute kidney injury: Status: Acute (3) Acute liver failure: Status: Acute (4) Hemoperitoneum: Status: Acute Plan 63F PMH alcoholic cirrhosis complicated by portal hypertension and ascites, alcohol use disorder, gout, hypertension, GERD presented with worsening fatigue and jaundice, found to have acute kidney injury and worsening liver function, overnight 07/05-07/06 - sycnopal episode, hypotension (not due ot sepsis, due to bleeding), drop in hgb, worsening mentation, transfered to ICU, found to have hemoperitoneum, transfused, hgb stabilized, downgraded to medical floor 07/09/23, now complicated by anuria, worsening renal function acute kidney injury 2/2 Hepatorenal syndrome requiring Hemodialysis Cr/BUN improving with dialysis holding diuretics, s/p Albumin and Octreotide continue midodrine Add aLbumin today continue Dialysis, session 3 today nephrology following, continue HD follow I\O, BMP acute blood loss anemia in alcoholic cirrhosis stable, due to hemoperitoneum monitor h and h stabilized acute metabolic acidosis resolved Acute hyperkalemia resolved acute decompensated hepatic cirrhosis complicated by ascites, portal vein hypertension NOT a candidate for transplant stopped prednisolone for bleed paracentesis performed by IR 07/04/23 does not indicate SBP, hold on Abx - due to abd pain and distension 2L removed 07/06/23 continue lactulose, rifaximin chronic thrombocytopenia related to cirrhosis alcohol use disorder in early remission. Relapse on Tuesday without any further alcohol use DVT prophylaxis-SCPs due to bleed Full code reason for continued hospitalization: closely monitor renal function, starting dialysis Quality Stroke Does the patient have a stroke diagnosis?: No VTE Prior VTE?: No VTE Risk Level:: Medical - moderate - high VTE Device Contraindication: N/A - Device Ordered VTE Drug Contraindication: Treatment Not Indicated
[2023-07-17] VITALS (7 sets, daily range): BP systolic 88–107; BP diastolic 50–60; PULSE 67–80; RESP 14–20; TEMP 36.2–37.3; O2SAT 95–97
[2023-07-17] MEDS: Omeprazole 40 MG CAPSULE.DR PO (05:33)
[2023-07-17 07:21] LABS: Alanine Aminotransferase 7 U/L (0-31); Albumin Level 3.6 g/dL (3.5-5.0); Alkaline Phosphatase 159 U/L (39-117); Anion Gap 19 (12-20); Aspartate Amino Transferase 66 U/L (5-31); Blood Urea Nitrogen 30 mg/dL (9-16); Calcium 9.3 mg/dL (8.4-10.2); Carbon Dioxide 25 mmol/L (22-29); Chloride 95 mmol/L (96-108); Creatinine Clr Calc Pharmacy 11.1; Estimated Glomerular Filt Rate 11; Glucose Random 125 mg/dL (60-115); Potassium 3.6 mmol/L (3.3-5.1); Sodium 135 mmol/L (135-145); Total Protein 5.4 g/dL (6.5-8.0)
[2023-07-17 07:34] LABS: Bilirubin Total 30.6 mg/dL (0.0-1.0)
[2023-07-17 07:44] LABS: Bilirubin Direct 21.6 mg/dL (0.0-0.5)
[2023-07-17] MEDS: Magnesium Oxide 400 MG TABLET PO (07:46)
[2023-07-17] MEDS: Midodrine HCl 10 MG TABLET PO ×3 (07:46→20:08)
[2023-07-17] MEDS: Folic Acid 1 MG TABLET PO (07:47)
[2023-07-17] MEDS: oxyCODONE HCl Immed Release 5 MG TABLET PO ×2 (07:47→16:27)
[2023-07-17] MEDS: Lactulose 20 GM/30 ML SOLUTION PO (07:47)
[2023-07-17] MEDS: 0.9 % Sodium Chloride Flush 3 ML SYRINGE IVFLUSH ×3 (07:47→20:08)
[2023-07-17] MEDS: Thiamine HCL 100 MG TABLET PO (07:47)
[2023-07-17] MEDS: Metoprolol Tartrate 12.5 MG HALFTAB PO ×2 (07:47→20:08)
--- NOTE | 2023-07-17 12:10 | P.PNIM_ITS ---
Subjective Subjective Date of Service: 07/17/23 Interval History: seen and evaluated this morning tolerated dialysis well no acidemia or uremia symptoms collecting more ascitic fluids Had 3 dialysis sessions up until yesterday Review of Systems Review of Systems: Yes all other systems are reviewed and are negative Physical Exam 2 Vital Signs: Vital Signs: Last Vital Signs Temp 97.2 F 07/17/23 10:44 Pulse 68 07/17/23 10:44 Resp 16 07/17/23 10:44 BP 98/60 07/17/23 10:44 Pulse Ox 96 07/17/23 10:44 O2 Del Method Room Air 07/17/23 10:44 BMI result Body Mass Index 23.7 Const: Other: Constitutional : Awake, interactive, not in distress, jaundiced Neck : Normal inspection, Supple Cardiovascular : RRR, no JVP, no lower extremity edema Respiratory : good bilateral air entry, no crackles, wheezes or rhonchi Gastrointestinal: soft, lax, Normal bowel sounds,moderate distended with mod ascites, non-tender Skin : Warm, Dry Neurological : Alert & oriented x3, No focal deficit Objective Data Active Medications Acetaminophen (Acetaminophen 325 Mg Tablet) 650 mg PO Q6H PRN PRN Reason: Pain, Mild (Pain Scale 1-3) Last Admin: 07/12/23 20:44 Dose: 650 mg Documented By: EILEEN Benzonatate (Benzonatate 100 Mg Capsule) 200 mg PO TID PRN PRN Reason: Cough Last Admin: 07/12/23 20:44 Dose: 200 mg Documented By: EILEEN Calcium Carbonate (Calcium Carbonate 750 Mg Tab.Chew) 750 mg PO Q4H PRN PRN Reason: Heartburn Last Admin: 07/15/23 22:51 Dose: 750 mg Documented By: REBEKAH Diphenhydramine HCl (Diphenhydramine Hcl 25 Mg Capsule) 25 mg PO Q6H PRN PRN Reason: Itching Last Admin: 07/06/23 17:18 Dose: 25 mg Documented By: HERBERTH Folic Acid (Folic Acid 1 Mg Tablet) 1 mg PO DAILY [facility] Last Admin: 07/17/23 07:47 Dose: 1 mg Documented By: CARLOS Dextrose (D10) 250 mls @ 750 mls/hr IV Q15M PRN PRN Reason: per Hypoglycemia Standing Ord. Last Infusion: 07/04/23 14:49 Dose: Infused Documented By: VERENA Lactulose (Lactulose 20 Gm/30 Ml Solution) 20 gm PO DAILY [facility] Last Admin: 07/17/23 07:47 Dose: 20 gm Documented By: CARLOS Magnesium Oxide (Magnesium Oxide 400 Mg Tablet) 400 mg PO DAILY [facility] Last Admin: 07/17/23 07:46 Dose: 400 mg Documented By: CARLOS Melatonin (Melatonin 3 Mg Tablet) 6 mg PO BEDTIME PRN PRN Reason: Insomnia Last Admin: 07/12/23 20:43 Dose: 6 mg Documented By: EILEEN Metoprolol Tartrate (Metoprolol Tartrate 12.5 Mg Halftab) 12.5 mg PO BID [facility]; Protocol Last Admin: 07/17/23 07:47 Dose: 12.5 mg Documented By: CARLOS Midodrine (Midodrine Hcl 10 Mg Tablet) 10 mg PO TID [facility] Last Admin: 07/17/23 07:46 Dose: 10 mg Documented By: CARLOS Omeprazole (Omeprazole 40 Mg Capsule.Dr) 40 mg PO DAILY@0630 [facility] Last Admin: 07/17/23 05:33 Dose: 40 mg Documented By: REBEKAH Ondansetron HCl (Ondansetron Hcl 4 Mg/2 Ml Vial) 4 mg IVPUSH Q8H PRN PRN Reason: Nausea and Vomiting Last Admin: 07/15/23 20:27 Dose: 4 mg Documented By: REBEKAH Comments: Per Dr. Robin sofia to give early Oxycodone HCl (Oxycodone Hcl Immed Release 5 Mg Tablet) 5 mg PO Q4H PRN PRN Reason: Pain, Moderate(Pain Scale 4-6) Last Admin: 07/17/23 07:47 Dose: 5 mg Documented By: CARLOS Senna (Sennosides 8.6 Mg Tablet) 17.2 mg PO BEDTIME PRN PRN Reason: Constipation Last Admin: 07/12/23 20:43 Dose: 17.2 mg Documented By: EILEEN Sodium Chloride (0.9 % Sodium Chloride Flush 3 Ml Syringe) [facility] Last Admin: 05/19/24 07:47 Dose: 3 ml Documented By: CARLOS Thiamine HCl (Thiamine Hcl 100 Mg Tablet) 100 mg PO DAILY [facility]FREDO Last Admin: 07/17/23 07:47 Dose: 100 mg Documented By: CARLOS Labs 07/14/23 06:29 07/17/23 06:30 Labs: Laboratory Results - last 24 hr 07/17/23 06:30 Hold Purple Top SEE NOTE Anion Gap 19 Estim Creat Clear Calc 11.1 Estimated GFR 11 Random Glucose 125 H Calcium 9.3 D Total Bilirubin 30.6 H Direct Bilirubin 21.6 H AST 66 H ALT 7 Alkaline Phosphatase 159 H Total Protein 5.4 L Albumin 3.6 Assessment and Plan (1) Acute hemodialysis patient: Status: Acute (2) Acute kidney injury: Status: Acute (3) Acute liver failure: Status: Acute (4) Acute blood loss anemia: Status: Acute (5) Hemoperitoneum: Status: Acute Plan 63F PMH alcoholic cirrhosis complicated by portal hypertension and ascites, alcohol use disorder, gout, hypertension, GERD presented with worsening fatigue and jaundice, found to have acute kidney injury and worsening liver function, overnight 07/05-07/06 - sycnopal episode, hypotension (not due ot sepsis, due to bleeding), drop in hgb, worsening mentation, transfered to ICU, found to have hemoperitoneum, transfused, hgb stabilized, downgraded to medical floor 07/09/23, now complicated by anuria, worsening renal function acute kidney injury 2/2 Hepatorenal syndrome requiring Hemodialysis Cr/BUN improving with dialysis continue midodrine continue Dialysis, had 3 sessions nephrology following, continue HD and look for outpatient spot follow I\O, BMP acute decompensated hepatic cirrhosis complicated by ascites, portal vein hypertension NOT a candidate for transplant stopped prednisolone for bleed paracentesis performed by IR 07/04/23 does not indicate SBP, hold on Abx - due to abd pain and distension 2L removed 07/06/23 continue lactulose, rifaximin Consider PAracentesis tomorrow acute blood loss anemia in alcoholic cirrhosis stable, due to hemoperitoneum monitor h and h stabilized acute metabolic acidosis resolved Acute hyperkalemia resolved chronic thrombocytopenia related to cirrhosis alcohol use disorder in early remission. Relapse on Tuesday without any further alcohol use DVT prophylaxis-SCPs due to bleed Full code reason for continued hospitalization: closely monitor renal function, starting dialysis Quality Stroke Does the patient have a stroke diagnosis?: No VTE Prior VTE?: No VTE Risk Level:: Medical - moderate - high VTE Device Contraindication: N/A - Device Ordered VTE Drug Contraindication: Treatment Not Indicated
[2023-07-17] MEDS: ondansetron HCL 4 MG/2 ML VIAL IVPUSH (16:30)
[2023-07-18 03:08] VITALS: BP 90/55; PULSE 82; RESP 14; TEMP 36.6; O2SAT 96
[2023-07-18] MEDS: Omeprazole 40 MG CAPSULE.DR PO (05:55)
[2023-07-18 06:45] LABS: Hematocrit 26.9 % (37.0-47.0); Hemoglobin 9.5 g/dl (12.0-16.0); Mean Corpuscular HGB Conc 35.3 g/dl (31.0-35.0); Mean Corpuscular Hemoglobin 33.8 pg (27.0-33.0); Mean Corpuscular Volume 95.7 fL (80.0-98.0); Mean Platelet Volume 12.4 fL (9.4-12.3); Red Blood Count 2.81 X10*6/uL (4.20-5.50); White Blood Count 15.9 X10*3/uL (4.8-10.8)
[2023-07-18 06:47] LABS: Platelet Count 66 X10*3/uL (160-400)
[2023-07-18 07:10] VITALS: BP 115/60; PULSE 80; RESP 17; TEMP 36.1; O2SAT 94
[2023-07-18 07:10] LABS: Anion Gap 19 (12-20); Blood Urea Nitrogen 35 mg/dL (9-16); Calcium 9.8 mg/dL (8.4-10.2); Carbon Dioxide 26 mmol/L (22-29); Chloride 95 mmol/L (96-108); Glucose Random 110 mg/dL (60-115); Sodium 136 mmol/L (135-145)
[2023-07-18 07:35] LABS: Creatinine Clr Calc Pharmacy 8.7; Estimated Glomerular Filt Rate 8
[2023-07-18] MEDS: Midodrine HCl 10 MG TABLET PO ×3 (08:08→21:47)
[2023-07-18] MEDS: Metoprolol Tartrate 12.5 MG HALFTAB PO (08:08)
[2023-07-18] MEDS: Lactulose 20 GM/30 ML SOLUTION PO (08:08)
[2023-07-18] MEDS: Magnesium Oxide 400 MG TABLET PO (08:09)
[2023-07-18] MEDS: Thiamine HCL 100 MG TABLET PO (08:09)
[2023-07-18] MEDS: Folic Acid 1 MG TABLET PO (08:09)
[2023-07-18] MEDS: Lidocaine HCl 1 % MPF 5 ML VIAL SUBCUT (09:57)
--- NOTE | 2023-07-18 11:14 | P.PNIM_ITS ---
Subjective Subjective Date of Service: 07/18/23 Interval History: seen and evaluated this morning tolerated dialysis well no acidemia or uremia symptoms collecting more ascitic fluids Had 3 dialysis sessions , to do PAracentesis and another dialysis session Review of Systems Review of Systems: Yes all other systems are reviewed and are negative Physical Exam 2 Vital Signs: Vital Signs: Last Vital Signs Temp 96.9 F 07/18/23 07:10 Pulse 80 07/18/23 07:10 Resp 17 07/18/23 07:10 BP 115/60 07/18/23 07:10 Pulse Ox 94 07/18/23 07:10 O2 Del Method Room Air 07/18/23 07:10 BMI result Body Mass Index 23.7 Const: Other: Constitutional : Awake, interactive, not in distress, jaundiced Neck : Normal inspection, Supple Cardiovascular : RRR, no JVP, no lower extremity edema Respiratory : good bilateral air entry, no crackles, wheezes or rhonchi Gastrointestinal: soft, lax, Normal bowel sounds,mild distended with minimal ascites, non-tender Skin : Warm, Dry Neurological : Alert & oriented x3, No focal deficit Objective Data Active Medications Acetaminophen (Acetaminophen 325 Mg Tablet) 650 mg PO Q6H PRN PRN Reason: Pain, Mild (Pain Scale 1-3) Last Admin: 07/12/23 20:44 Dose: 650 mg Documented By: EILEEN Benzonatate (Benzonatate 100 Mg Capsule) 200 mg PO TID PRN PRN Reason: Cough Last Admin: 07/12/23 20:44 Dose: 200 mg Documented By: EILEEN Calcium Carbonate (Calcium Carbonate 750 Mg Tab.Chew) 750 mg PO Q4H PRN PRN Reason: Heartburn Last Admin: 07/15/23 22:51 Dose: 750 mg Documented By: REBEKAH Diphenhydramine HCl (Diphenhydramine Hcl 25 Mg Capsule) 25 mg PO Q6H PRN PRN Reason: Itching Last Admin: 07/06/23 17:18 Dose: 25 mg Documented By: HERBERTH Folic Acid (Folic Acid 1 Mg Tablet) 1 mg PO DAILY [facility] Last Admin: 07/18/23 08:09 Dose: 1 mg Documented By: AMADO Heparin Sodium (Porcine) (Heparin Sodium,Porcine 5,000 Unit/Ml Vial) 5,000 unit INTRACATH MOWEFR@1645 [facility] Dextrose (D10) 250 mls @ 750 mls/hr IV Q15M PRN PRN Reason: per Hypoglycemia Standing Ord. Last Infusion: 07/04/23 14:49 Dose: Infused Documented By: VERENA Albumin Human (Kedbumin 25 %) 100 mls @ 200 mls/hr IV MOWEFR@1645 [facility] Albumin Human (Kedbumin 25 %) 100 mls @ 100 mls/hr IV Q1H [facility] Stop: 07/18/23 13:14 Lactulose (Lactulose 20 Gm/30 Ml Solution) 20 gm PO DAILY [facility] Last Admin: 07/18/23 08:08 Dose: 20 gm Documented By: AMADO Magnesium Oxide (Magnesium Oxide 400 Mg Tablet) 400 mg PO DAILY [facility] Last Admin: 07/18/23 08:09 Dose: 400 mg Documented By: AMADO Melatonin (Melatonin 3 Mg Tablet) 6 mg PO BEDTIME PRN PRN Reason: Insomnia Last Admin: 07/12/23 20:43 Dose: 6 mg Documented By: EILEEN Metoprolol Tartrate (Metoprolol Tartrate 12.5 Mg Halftab) 12.5 mg PO BID [facility]; Protocol Last Admin: 07/18/23 08:08 Dose: 12.5 mg Documented By: AMADO Midodrine (Midodrine Hcl 10 Mg Tablet) 10 mg PO TID [facility] Last Admin: 07/18/23 08:08 Dose: 10 mg Documented By: AMADO Omeprazole (Omeprazole 40 Mg Capsule.) 40 mg PO DAILY@0630 [facility] Last Admin: 07/18/23 05:55 Dose: 40 mg Documented By: REBEKAH Ondansetron HCl (Ondansetron Hcl 4 Mg/2 Ml Vial) 4 mg IVPUSH Q8H PRN PRN Reason: Nausea and Vomiting Last Admin: 07/17/23 16:30 Dose: 4 mg Documented By: CORRINA Oxycodone HCl (Oxycodone Hcl Immed Release 5 Mg Tablet) 5 mg PO Q4H PRN PRN Reason: Pain, Moderate(Pain Scale 4-6) Last Admin: 07/17/23 16:27 Dose: 5 mg Documented By: CORRINA Senna (Sennosides 8.6 Mg Tablet) 17.2 mg PO BEDTIME PRN PRN Reason: Constipation Last Admin: 07/12/23 20:43 Dose: 17.2 mg Documented By: EILEEN Sodium Chloride (0.9 % Sodium Chloride Flush 3 Ml Syringe) 3 ml IVFLUSH QSHIFT [facility] Last Admin: 07/18/23 07:18 Dose: Not Given Documented By: AMADO Non-Admin Reason: Previously Administered Thiamine HCl (Thiamine Hcl 100 Mg Tablet) 100 mg PO DAILY [facility] Last Admin: 07/18/23 08:09 Dose: 100 mg Documented By: AMADO Labs 07/18/23 06:07 07/18/23 06:07 Labs: Laboratory Results - last 24 hr 07/18/23 06:07 MCV 95.7 MCH 33.8 H MCHC 35.3 H RDW 20.0 H Plt Count 66 L MPV 12.4 H Absolute Nucleated RBC 0.000 Nucleated RBC % (auto) 0.0 Anion Gap 19 Estim Creat Clear Calc 8.7 Estimated GFR 8 Random Glucose 110 Calcium 9.8 Assessment and Plan (1) Acute hemodialysis patient: Status: Acute (2) Acute kidney injury: Status: Acute (3) Acute liver failure: Status: Acute (4) Hemoperitoneum: Status: Acute (5) Acute blood loss anemia: Status: Acute Plan 63F PMH alcoholic cirrhosis complicated by portal hypertension and ascites, alcohol use disorder, gout, hypertension, GERD presented with worsening fatigue and jaundice, found to have acute kidney injury and worsening liver function, overnight 07/05-07/06 - sycnopal episode, hypotension (not due ot sepsis, due to bleeding), drop in hgb, worsening mentation, transfered to ICU, found to have hemoperitoneum, transfused, hgb stabilized, downgraded to medical floor 07/09/23, now complicated by anuria, worsening renal function acute kidney injury 2/2 Hepatorenal syndrome requiring Hemodialysis Cr/BUN improving with dialysis continue midodrine continue Dialysis, had 3 sessions, will do another session today nephrology following, continue HD and look for outpatient spot follow I\O, BMP acute decompensated hepatic cirrhosis complicated by ascites, portal vein hypertension NOT a candidate for transplant Les keeps going up to 30s now stopped prednisolone for bleed paracentesis performed by IR 07/04/23 does not indicate SBP, hold on Abx - due to abd pain and distension 2L removed 07/06/23, Repeated 07/17 removing 5L. continue lactulose, rifaximin PAracentesis done removing 5 L, give 2 Albumin doses. acute blood loss anemia in alcoholic cirrhosis stable, due to hemoperitoneum monitor h and h stabilized acute metabolic acidosis resolved Acute hyperkalemia resolved chronic thrombocytopenia related to cirrhosis alcohol use disorder in early remission. Relapse on Tuesday without any further alcohol use DVT prophylaxis-SCPs due to bleed Full code reason for continued hospitalization: closely monitor renal function, starting dialysis Quality Stroke Does the patient have a stroke diagnosis?: No VTE Prior VTE?: No VTE Risk Level:: Medical - moderate - high VTE Device Contraindication: N/A - Device Ordered VTE Drug Contraindication: Treatment Not Indicated
[2023-07-18] MEDS: Albumin Human 25 % 100 ML IV ×2 (11:23→12:39)
--- NOTE | 2023-07-18 12:05 | MHC.CM.PN ---
[facility] with onsite [facility], will accept Patient on 07/21/2023, in anticipation of an available HD slot beginning on Tuesday07/22/2023. is aware.
--- NOTE | 2023-07-18 12:49 | PM.PNNEP ---
Subjective Subjective Date of Service: 07/18/23 Interval history: seen and evaluated this morning ; Had Paracentesis this AM. Due HD today Physical Exam Vital Signs: Vital Signs: Last Vital Signs Temp 96.9 F 07/18/23 07:10 Pulse 80 07/18/23 07:10 Resp 17 07/18/23 07:10 BP 115/60 07/18/23 07:10 Pulse Ox 94 07/18/23 07:10 O2 Del Method Room Air 07/18/23 07:10 BMI result Body Mass Index 23.7 Const: Other: Jaundiced Eyes: EOM: EOMs intact bilaterally Resp: Auscultation: diminished lung sounds Cardio: Rate: regular rate GI: Palpation (GI): Soft to palpation Neuro: General: moves all extremities Objective Data Labs 07/18/23 06:07 07/18/23 06:07 Labs: Laboratory Results - last 24 hr 07/18/23 06:07 WBC 15.9 H RBC 2.81 L Hgb 9.5 L Hct 26.9 L MCV 95.7 MCH 33.8 H MCHC 35.3 H RDW 20.0 H Plt Count 66 L MPV 12.4 H Absolute Nucleated RBC 0.000 Nucleated RBC % (auto) 0.0 Sodium 136 Potassium 4.0 Chloride 95 L Carbon Dioxide 26 Anion Gap 19 BUN 35 H Creatinine 5.40 H* Estim Creat Clear Calc 8.7 Estimated GFR 8 Random Glucose 110 Calcium 9.8 Microbiology Microbiology Results: Microbiology 07/04/23 17:58 Blood - Venous Blood Culture - Final No growth after 5 days. 07/04/23 17:44 Blood - Venous Blood Culture - Final No growth after 5 days. 07/04/23 15:30 Ascites Fluid Gram Stain - Final 07/04/23 15:30 Ascites Fluid Routine Culture - Final No growth after 2 days 07/04/23 15:30 Ascites Fluid Anaerobic Culture - Final NO GROWTH AFTER 5 DAYS 07/04/23 17:34 Urine clean catch - Clean Catch Midstream Urine Culture - Final Procedures Date of Service Date of Service: 07/18/23 Assessment & Plan Assessment and plan (1) Acute on chronic kidney failure: Status: Acute Plan Acute Kidney Injury due to tubular injury( likely ESRD now) Has HRS 2 at baseline; Serum creatinine not improving; UO poor Initiated on renal replacement soon- For HD today Continue current supportive care for now [facility] been [facility] Has an outpatient HD spot in [facility] TTS 2 D/W MONIQUE Michelle in HD Unit- [phone] Progress Note: Quality Stroke Does the patient have a stroke diagnosis?: No
--- NOTE | 2023-07-18 14:20 | MHC.CM.PN ---
Patient received HD here today. [facility] will have a HD slot beginning on 07/21/2023. Renal MD has approved dc to [facility] tomorrow, with next HD on 07/21/2023 @ [facility]. CM will follow and Attending MD is aware.
[2023-07-18 15:37] VITALS: BP 98/65; PULSE 77; RESP 18; TEMP 36.4; O2SAT 94
--- NOTE | 2023-07-18 16:12 | P.PNGI_ITS ---
Subjective Subjective Date of Service: 07/18/23 Interval History: feels good complaining about the food Critical Care Time (minutes): 0 Physical Exam 2 Vital Signs: Vital Signs: Last Vital Signs Temp 97.6 F 07/18/23 15:37 Pulse 77 07/18/23 15:37 Resp 18 07/18/23 15:37 BP 98/65 07/18/23 15:37 Pulse Ox 94 07/18/23 15:37 O2 Del Method Room Air 07/18/23 15:37 BMI result Body Mass Index 23.7 Const: General: cooperative GI: Other: abdomen is soft and nontender Objective Data Labs 07/18/23 06:07 07/18/23 06:07 Microbiology Microbiology Results: Microbiology 07/04/23 17:58 Blood - Venous Blood Culture - Final No growth after 5 days. 07/04/23 17:44 Blood - Venous Blood Culture - Final No growth after 5 days. 07/04/23 15:30 Ascites Fluid Gram Stain - Final 07/04/23 15:30 Ascites Fluid Routine Culture - Final No growth after 2 days 07/04/23 15:30 Ascites Fluid Anaerobic Culture - Final NO GROWTH AFTER 5 DAYS 07/04/23 17:34 Urine clean catch - Clean Catch Midstream Urine Culture - Final Procedures Date of Service Date of Service: 07/18/23 Progress Note: A&P Assessment and plan (1) Acute liver failure: Status: Acute Assessment and Plan: alcoholic hepatitis is stable, cholestatic phase can last months inr has improved. paracentesis prn discomfort no new recommendations. Time Spent With Patient Time: Total time managing care of this patient today ____ minutes. Quality Stroke Does the patient have a stroke diagnosis?: No VTE Prior VTE?: No VTE Risk Level:: Medical - moderate - high VTE Device Contraindication: N/A - Device Ordered VTE Drug Contraindication: Treatment Not Indicated
[2023-07-18] MEDS: Albumin Human 25 % 100 ML 200 ML IV (16:19)
[2023-07-18] MEDS: Heparin Sodium,Porcine 5,000 UNIT/ML VIAL 5000 UNIT INTRACATH (16:19)
[2023-07-18] MEDS: oxyCODONE HCl Immed Release 5 MG TABLET PO ×2 (16:21→21:50)
[2023-07-18 19:17] VITALS: BP 97/51; PULSE 105; RESP 20; TEMP 37.2; O2SAT 97
[2023-07-18 21:48] VITALS: BP 96/50; PULSE 88
--- NOTE | 2023-07-18 21:59 | PC.NURSE ---
BP soft 96/[address] Stephenson made aware. Bedtime metoprolol 12.5 mg held.
[2023-07-18 23:14] VITALS: BP 99/60; PULSE 92; RESP 20; TEMP 37.2; O2SAT 100
[2023-07-18] MEDS: 0.9 % Sodium Chloride Flush 3 ML SYRINGE IVFLUSH (23:28)
[2023-07-19 03:24] VITALS: BP 93/54; PULSE 69; RESP 20; TEMP 37.2; O2SAT 96
[2023-07-19 07:13] VITALS: BP 97/62; PULSE 87; RESP 18; TEMP 36.9; O2SAT 98
[2023-07-19] MEDS: Midodrine HCl 10 MG TABLET PO (09:36)
[2023-07-19] MEDS: Omeprazole 40 MG CAPSULE.DR PO (09:36)
[2023-07-19] MEDS: Metoprolol Tartrate 12.5 MG HALFTAB PO (09:36)
[2023-07-19] MEDS: Thiamine HCL 100 MG TABLET PO (09:36)
[2023-07-19] MEDS: Magnesium Oxide 400 MG TABLET PO (09:37)
[2023-07-19] MEDS: 0.9 % Sodium Chloride Flush 3 ML SYRINGE IVFLUSH (09:37)
[2023-07-19] MEDS: Folic Acid 1 MG TABLET PO (09:37)
[2023-07-19] MEDS: Lactulose 20 GM/30 ML SOLUTION PO (09:43)
--- NOTE | 2023-07-19 09:52 | MHC.CM.PN ---
Per MD, Patient is medically cleared for dc to [facility] today. Patient will dc to [facility] today at 1PM, via [facility]. Patient's HD will start at [facility] on , 07/21/2023 (approved by Nephrology). CM left a detailed message for Friend/HCP/Emily @ [phone], informing her of the dc plan. IMM addressed with Patient at bedside; original was given to Patient and a copy has been placed on the chart.
--- NOTE | 2023-07-19 09:58 | P.PNNP_ITS ---
Subjective Subjective Date of Service: 07/19/23 Interval history: Events noted had dialysis yesterday Physical Exam 2 Vital Signs: Vital Signs: Last Vital Signs Temp 98.4 F 07/19/23 07:13 Pulse 87 07/19/23 07:13 Resp 18 07/19/23 07:13 BP 97/62 07/19/23 07:13 Pulse Ox 98 07/19/23 07:13 O2 Del Method Room Air 07/19/23 07:13 BMI result Body Mass Index 23.7 Const: General: comfortable and no acute distress HEENT: Head: Yes normocephalic Mouth: Normal oral and palatal mucosa present Eyes: EOM: EOMs intact bilaterally Neck: Neck: Yes supple Resp: Auscultation: clear to auscultation bilaterally and diminished lung sounds Cardio: Jugular venous distension: no JVD Rate: regular rate Heart sounds: Murmur heart sound present GI: Palpation (GI): Soft to palpation Auscultation: normal bowel sounds : General: Yes no CVA tenderness Back/Spine/Pelvis: Back: no CVA tenderness Skin: General skin exam: no rashes or lesions noted Neuro: General: moves all extremities Objective Data Labs 07/18/23 06:07 07/18/23 06:07 Microbiology Microbiology Results: Microbiology 07/04/23 17:58 Blood - Venous Blood Culture - Final No growth after 5 days. 07/04/23 17:44 Blood - Venous Blood Culture - Final No growth after 5 days. 07/04/23 15:30 Ascites Fluid Gram Stain - Final 07/04/23 15:30 Ascites Fluid Routine Culture - Final No growth after 2 days 07/04/23 15:30 Ascites Fluid Anaerobic Culture - Final NO GROWTH AFTER 5 DAYS 07/04/23 17:34 Urine clean catch - Clean Catch Midstream Urine Culture - Final Procedures Date of Service Date of Service: 07/19/23 Assessment & Plan Assessment and plan (1) Acute kidney injury: Status: Acute Assessment and Plan: Acute Kidney Injury due to tubular injury Has HRS 2 at baseline; Superimposed ischemic ATN due to blood loss No significant renal recovery Creatinine remains elevated Continue with renal replacement therapy. Outpatient dialysis arranged at [facility] Concur with other medical managed Time Spent With Patient Time: Total time managing care of this patient today ____ minutes. Progress Note: Quality Stroke Does the patient have a stroke diagnosis?: No
--- NOTE | 2023-07-19 10:43 | PM.DS ---
DS: Providers Provider Date of Service: 07/19/23 Date of admission: 07/04/23 18:03 Primary care physician: Satish Sharma MD Consults: 07/04/23 18:01 Consult to Gastroenterology Routine Consulting Provider: Audie Joshi Reason for consultation: decompensated cirrhosis Consult to Nephrology Routine Consulting Provider: [facility] Reason for consultation: celestine, ?HRS 07/07/23 14:23 Consult to General Surgery Routine Consulting Provider: [facility] Reason for consultation: hemoperitoneum Has provider been notified: No DS: Diagnosis Discharge Diagnosis (1) Acute kidney injury: Status: Acute (2) Acute hemodialysis patient: Status: Acute (3) Acute liver failure: Status: Acute (4) Hemoperitoneum: Status: Acute (5) Acute blood loss anemia: Status: Acute (6) Hyperbilirubinemia: Status: Acute (7) Liver cirrhosis: Status: Acute (8) Acute on chronic kidney failure: Status: Acute (9) Hepatorenal syndrome: Status: Acute (10) Cirrhosis of liver with ascites: Status: Acute DS: Summary Hospital Course Hospital Course: The patient had prolonged hospital stay, for details please return to full EMR. Admission note HPI 63-year-old female with history of alcoholic cirrhosis complicated by portal vein hypertension and ascites, alcohol use disorder, gout, hypertension, GERD presented to the ED earlier today for evaluation of weakness and fatigue. Recently had prolonged hospitalization from 06/05-06/20 for acute hepatic encephalopathy, CELESTINE, acute alcoholic hepatitis initially treated with prednisone but transition to pentoxifylline due to GI bleed. She was discharged to home. She continues to abstain from alcohol. Last alcoholic beverage was a small amount on Tuesday. She did undergo therapeutic paracentesis 5 days ago draining 3.7 L fluid. Denies any fevers, chills, abdominal pain, nausea, vomiting, diarrhea, shortness of breath, cough, lightheadedness, chest pain. She does report anorexia and has only been tolerating small amounts of clear liquids and ice cream. On arrival, intermittently tachycardic to 125, no hypotension, vitals otherwise stable. No leukocytosis. H/H 11.8/31.5%. Platelets 121. Creatinine 2.90, baseline 1.4. BUN 51. Sodium 132. Initial potassium 5.8 treated with IV insulin, D50, and Lokelma was improvement to 4.2. Bicarb remains low at 12, VBG pending. Lactic acid pending. Total bilirubin 34.0, direct bilirubin 94.8. AST 95, ALT 23, alkaline phosphatase 233. Ammonia 113, however patient alert and oriented x4. Urinalysis with 1+ leukocytes, positive nitrites, scant urinary sediment, negative bacteria. Patient denies any urinary symptoms. Diagnostic paracentesis performed which does not indicate any SBP. Negative for COVID-19, RSV, influenza. Abdominal ultrasound shows cirrhotic appearing liver with splenomegaly as well as cholelithiasis with thickened gallbladder wall and patent portal vein system with normal hepatopetal flow. Pt will be admitted for further management of acute decompensated hepatic cirrhosis. Hospital course # Acute kidney injury secondary to Hepatorenal syndrome requiring Hemodialysis as Cr/BUN did not improved with HRS management with Albumin and Octreotide. Will continue midodrine for low BP. She had total of 4 sessions in hospital last on Tuesday. Next HD session can be scheduled . Nephrology team will continue to follow as outpatient. # Acute decompensated hepatic cirrhosis complicated by ascites, portal vein hypertension. She is NOT a candidate for transplant In Cholestatic phase now with T.Bili keeps going up to 30s now but improved INR to 1.6. stopped prednisolone for recent GI bleed paracentesis performed by IR 07/04/23 does not indicate SBP, 2L removed 07/06/23 and Repeated Paracentesis 07/17 removing 5L. To continue lactulose, rifaximin # acute blood loss anemia in alcoholic cirrhosis due to hemoperitoneum which did not require blood transfusion during hospital stay. Hemoglobin level remained stable. # acute metabolic acidosis. resolved # Acute hyperkalemia,resolved # chronic thrombocytopenia. related to cirrhosis # alcohol use disorder. in early remission. Relapse on Tuesday without any further alcohol use Discharge plan Continue dialysis as scheduled Midodrine 10 mg three times daily High protein diet Discontinue Lasix and Spironolactone for now Follow with nephrology as outpatient The patient will likely need less than 30 days of SNF stay. Time Attestation Discharge Coordination Time (in mins): 43 Quality: Safe Use of Opioids Does Pt have an Active Cancer Diagnosis on the Problem List?: No Quality: Stroke Does the patient have a stroke diagnosis?: No Physical Exam Vital Signs: Vital Signs: Last Vital Signs Temp 98.4 F 07/19/23 07:13 Pulse 87 07/19/23 07:13 Resp 18 07/19/23 07:13 BP 97/62 07/19/23 07:13 Pulse Ox 98 07/19/23 07:13 O2 Del Method Room Air 07/19/23 07:13 BMI result Body Mass Index 23.7 Const: Other: Constitutional : Awake, interactive, not in distress, jaundiced Neck : Normal inspection, Supple Cardiovascular : RRR, no JVP, no lower extremity edema Respiratory : good bilateral air entry, no crackles, wheezes or rhonchi Gastrointestinal: soft, lax, Normal bowel sounds,mild distended with minimal ascites, non-tender Skin : Warm, Dry Neurological : Alert & oriented x3, No focal deficit DS: Data Data Completed and Pending Completed studies during hospitalization [Text1]: Procedures Drainage of Peritoneal Cavity, Percutaneous Approach (06/06/23) Transfusion of Nonautologous Frozen Plasma into Peripheral Vein, Percutaneous Approach (06/06/23) Transfusion of Nonautologous Platelets into Peripheral Vein, Percutaneous Approach (06/06/23) Transfusion of Nonautologous Red Blood Cells into Peripheral Vein, Percutaneous Approach (06/06/23) Imaging Chest x-ray: Radiologist's impression: ITS Impressions Abdomen Ultrasound 07/04/23 15:30 IMPRESSION: 1. Cirrhotic appearing liver with splenomegaly. 2. Cholelithiasis with thickened gallbladder wall. 3. The portal venous system is patent with normal hepatopedal flow. Doppler Study Ultrasound 07/04/23 15:30 IMPRESSION: 1. Cirrhotic appearing liver with splenomegaly. 2. Cholelithiasis with thickened gallbladder wall. 3. The portal venous system is patent with normal hepatopedal flow. Paracentesis Ultrasound 07/04/23 16:00 Impression: Ultrasound-guided diagnostic paracentesis as described above. No immediate complications Cholangiopancreatography MRI 07/05/23 08:42 IMPRESSION: Limited study due to the presence of large ascites and lack of intravenous contrast. Hepatic cirrhosis. Splenomegaly. No acute abnormality. Paracentesis Ultrasound 07/06/23 12:22 Impression: Ultrasound-guided paracentesis as described above. No immediate complications Abdomen/Pelvis CT 07/07/23 13:13 IMPRESSION: Increasing ascites with a large dependent blood clot within the ascites. Again seen is a cirrhotic liver, small hiatal hernia and cholelithiasis. Fleischner guidelines were followed. Discharge Plan Discharge Anticipated Discharge Date/Time: 07/19/23 10:29 Patient Disposition: Xfer SNF Discharge Diagnosis: Hepatorenal syndrome Renal failure starting dialysis Referrals: Armin Gant [Outside] - 1 Week Satish Sharma MD [Primary Care Provider] - 1 Week Discharge Medications: New midodrine 10 mg Tablet 10 mg PO TID Qty: 90 0RF Continued magnesium oxide 400 mg (241.3 mg magnesium) Tablet 400 mg PO DAILY 300 Days Qty: 300 0RF lactulose 20 gram/30 mL Solution 20 g PO DAILY 30 Days Qty: 900 0RF metoprolol tartrate 25 mg tablet 12.5 mg PO BID 30 Days Qty: 30 0RF omeprazole 40 mg Capsule,Delayed Release(Dr/Ec) 40 mg PO DAILY@0630 30 Days Qty: 30 0RF folic acid 1 mg Tablet 1 mg PO DAILY 30 Days Qty: 30 0RF thiamine mononitrate (vit B1) 100 mg Tablet 100 mg PO DAILY 30 Days Qty: 30 0RF rifaximin 550 mg Tablet 550 mg PO BID Discontinued midodrine 5 mg Tablet 5 mg PO TID 30 Days Qty: 90 0RF pentoxifylline 400 mg Tablet Extended Release 400 mg PO DAILY 30 Days Qty: 30 0RF spironolactone 25 mg Tablet 25 mg PO BID@0900,1800 30 Days Qty: 60 0RF Protocol: Hold for SBP< HOLD for SBP < : 90 furosemide 20 mg Tablet 20 mg PO DAILY Discharge Orders: Discharge Order (Routine); Ordered 07/19/23 Ordered By: Steven Ku Diet: Low salt diet Activity on Discharge: As tolerated Stand Alone Forms: Patient Portal Discharge page Print Language: Sinhala Care Plan Goals: Read below Health Concerns: Read below Plan of Treatment: Read below Assessment: Continue dialysis as scheduled Midodrine 10 mg three times daily High protein diet Discontinue Lasix and Spironolactone for now Follow with nephrology as outpatient
[2023-07-19 11:14] VITALS: BP 98/61; PULSE 70; RESP 18; TEMP 36.6; O2SAT 98
--- NOTE | 2023-07-19 13:16 | PC.NURSE ---
patient set of upper false teeth missing, this nurse called radiology tech that performed paracintesis yesterday reported that patient came down to procedure without teeth.
== END 2023-07-19 13:18 | disposition skilled nursing facility (03) | DRG 432 ==
LOC: HO.ED 15:07 → HO.EDOVER 18:13 → HO.S3 19:25 → HO.IMC 07-07 07:35 → HO.ICU 07-07 10:02 → HO.IMC 07-09 13:27
PROVIDERS: Internal Medicine; Internal Medicine Hypertension Specialist; Internal Medicine Pulmonary Disease; Physician Assistant Medical; Radiology Vascular & Interventional Radiology; Registered Nurse Community Health; Student in an Organized Health Care Education/Training Program; Admitting Provider Physician Assistant; Emergency Provider Student in an Organized Health Care Education/Training Program; PCP Family Medicine; Visit Provider Student in an Organized Health Care Education/Training Program
PROC: 0JH63XZ Insertion of Tunneled Vascular Access Device into Chest Subcutaneous Tissue and Fascia, Percutaneous Approach (ICD-10-PCS; principal; 2023-07-14 09:30)
DX: K70.31 Alcoholic cirrhosis of liver with ascites (principal); K66.1 Hemoperitoneum; K72.00 Acute and subacute hepatic failure without coma; K76.7 Hepatorenal syndrome; N17.0 Acute kidney failure with tubular necrosis; E87.3 Alkalosis; K76.6 Portal hypertension; D68.4 Acquired coagulation factor deficiency; E87.20 Acidosis, unspecified; D62 Acute posthemorrhagic anemia; I47.19 Other supraventricular tachycardia; M10.9 Gout, unspecified; K21.9 Gastro-esophageal reflux disease without esophagitis; D69.59 Other secondary thrombocytopenia; E87.5 Hyperkalemia; I95.1 Orthostatic hypotension; F10.11 Alcohol abuse, in remission; Z20.822 Contact with and (suspected) exposure to COVID-19; Z87.891 Personal history of nicotine dependence; Z79.899 Other long term (current) drug therapy
CPT/HCPCS: 0241U; 36415; 36558; 36600; 49083; 74176; 74181; 76700; 80048; 80053; 80076; 81001; 82040; 82140; 82248; 82570; 82803; 82947; 83605; 83735; 84100; 84300; 84484; 85014; 85018; 85025; 85027; 85610; 85730; 86704; 86706; 86709; 86803; 86850; 86900; 86901; 86923; 87040; 87070; 87073; 87086; 87205; 87340; 89051; 90999; 92950; 93005; 93975; 97162; 99285; C1750; C1758; C1769; C9113; J0613; J0696; J1170; J1644; J2354; J2405; J3010; J3430; J3480; P9016; P9017; P9047

== ENCOUNTER → 2023-07-04 12:07 | Outpatient (BNV) | payer MEDICARE, SELFPAY | PROVIDERS: Emergency Provider Student in an Organized Health Care Education/Training Program; PCP Family Medicine; Visit Provider Physician Assistant Surgical | DX: R18.8 Other ascites (principal) | CPT/HCPCS: 49083; 99499 ==

== ENCOUNTER → 2023-07-04 13:21 | Outpatient (BNV) | payer MEDICARE, SELFPAY | PROVIDERS: Admitting Provider Physician Assistant; Emergency Provider Student in an Organized Health Care Education/Training Program; PCP Family Medicine; Visit Provider Internal Medicine Cardiovascular Disease | DX: E87.5 Hyperkalemia (principal) | CPT/HCPCS: 93010 ==

== ENCOUNTER 2023-07-04 18:03 | Outpatient (BNV) | payer MEDICARE, SELFPAY | END 2023-07-14 09:00 | PROVIDERS: Admitting Provider Physician Assistant; Emergency Provider Student in an Organized Health Care Education/Training Program; PCP Family Medicine; Visit Provider Physician Assistant Surgical | DX: N18.6 End stage renal disease (principal) | CPT/HCPCS: 36558; 76937; 77001 ==

== ENCOUNTER 2023-07-04 18:03 | Outpatient (BNV) | payer MEDICARE, SELFPAY | END 2023-07-06 12:10 | PROVIDERS: Admitting Provider Physician Assistant; Emergency Provider Student in an Organized Health Care Education/Training Program; PCP Family Medicine; Visit Provider Physician Assistant Surgical | DX: R18.8 Other ascites (principal) | CPT/HCPCS: 49083 ==

== ENCOUNTER 2023-07-04 18:03 | Outpatient (BNV) | payer MEDICARE, SELFPAY | END 2023-07-18 08:00 | PROVIDERS: Admitting Provider Physician Assistant; Emergency Provider Student in an Organized Health Care Education/Training Program; PCP Family Medicine; Visit Provider Physician Assistant Surgical | DX: R18.8 Other ascites (principal) | CPT/HCPCS: 49083 ==

== ENCOUNTER 2023-07-04 18:03 | Outpatient (BNV) | payer MEDICARE, SELFPAY | END 2023-07-11 23:44 | PROVIDERS: Admitting Provider Physician Assistant; Emergency Provider Student in an Organized Health Care Education/Training Program; PCP Family Medicine; Visit Provider Internal Medicine Cardiovascular Disease | DX: R00.0 Tachycardia, unspecified (principal) | CPT/HCPCS: 93010 ==

== ENCOUNTER → 2023-07-04 18:03 | Outpatient (BNV) | payer MEDICARE, SELFPAY | PROVIDERS: Admitting Provider Physician Assistant; Emergency Provider Student in an Organized Health Care Education/Training Program; PCP Family Medicine; Visit Provider Internal Medicine Pulmonary Disease | DX: N17.9 Acute kidney failure, unspecified (principal); K72.00 Acute and subacute hepatic failure without coma; K66.1 Hemoperitoneum; D62 Acute posthemorrhagic anemia; K74.60 Unspecified cirrhosis of liver | CPT/HCPCS: 99233; 99291 ==

== ENCOUNTER → 2023-07-04 18:03 | Outpatient (BNV) | payer MEDICARE, SELFPAY | PROVIDERS: Admitting Provider Physician Assistant; Emergency Provider Student in an Organized Health Care Education/Training Program; PCP Family Medicine; Visit Provider Physician Assistant | DX: Z99.2 Dependence on renal dialysis (principal); N17.9 Acute kidney failure, unspecified; K72.00 Acute and subacute hepatic failure without coma; K66.1 Hemoperitoneum; D62 Acute posthemorrhagic anemia; K74.60 Unspecified cirrhosis of liver | CPT/HCPCS: 99223; 99232; 99233; 99239; 99499 ==

== ENCOUNTER → 2023-07-04 18:03 | Outpatient (BNV) | payer MEDICARE, SELFPAY | PROVIDERS: Admitting Provider Physician Assistant; Emergency Provider Student in an Organized Health Care Education/Training Program; PCP Family Medicine; Visit Provider Surgery | DX: K66.1 Hemoperitoneum (principal); K74.60 Unspecified cirrhosis of liver; R18.8 Other ascites | CPT/HCPCS: 99222 ==

== ENCOUNTER → 2023-07-04 18:03 | Outpatient (BNV) | payer MEDICARE, SELFPAY | PROVIDERS: Admitting Provider Physician Assistant; Emergency Provider Student in an Organized Health Care Education/Training Program; PCP Family Medicine; Visit Provider Internal Medicine Hypertension Specialist | DX: N17.0 Acute kidney failure with tubular necrosis (principal) | CPT/HCPCS: 90935; 99223; 99232; 99499 ==

== ENCOUNTER 2023-07-22 21:03 | Inpatient (IN) | payer MEDICARE, SELFPAY ==
--- NOTE | 2023-07-22 | ECG_ITS ---
Test Reason : TACHYCARDIA Blood Pressure : / mmHG Vent. Rate : 115 BPM Atrial Rate : 115 BPM P-R Int : 144 ms QRS Dur : 076 ms QT Int : 320 ms P-R-T Axes : 054 022 062 degrees QTc Int : 442 ms Sinus tachycardia Cannot rule out Anterior infarct , age undetermined Abnormal ECG When compared with ECG of 11-JUL-2023 23:44, Premature atrial complexes are no longer Present Nonspecific T wave abnormality now evident in Anterior leads Referred By: Generic ED Physician Electronically Signed By:Gagna Garcia
--- NOTE | ~2023-07-22 | XR_ITS ---
EXAMINATION: XR CHEST CLINICAL INFORMATION: Cough COMPARISON: 06/16/2023 TECHNIQUE: Frontal view of the chest was obtained. FINDINGS: Dual lumen right IJ dialysis catheter tip terminates in the right atrium. Borderline low lung volumes. Cardiac and mediastinal contours are normal. No consolidation, pneumothorax, or pleural effusion. No appreciable pulmonary edema. No acute osseous findings. Osteoarthritis is present in the acromioclavicular and glenohumeral joints. Bones are osteopenic. XR/XR chest 1V IMPRESSION: No acute pulmonary findings. Borderline low lung volumes.
--- NOTE | ~2023-07-22 | IR_ITS ---
CLINICAL HISTORY: End-stage renal disease on hemodialysis. Permacath was removed due to bacteremia. Recent blood cultures are negative x 48 hours. She patient presents to interventional radiology for placement of a new tunneled central venous catheter for hemodialysis. PROCEDURES: 1. Real-time ultrasound-guided access into the left internal jugular vein after documentation of selected vessel patency, and permanent imaging storing in the patient record. 2. Placement of a 14.5 fr 23 cm tunneled, dual-lumen hemodialysis catheter. Clinician: Karlo Portillo PA-C MEDICATIONS: -Fentanyl 50 mcg, Lidocaine 1% 10 mL SQ. -Antibiotics: None -For additional details, please see nursing flowsheet. COMPLICATIONS: None. ESTIMATED BLOOD LOSS: <5 ml SPECIMENS: None FLUOROSCOPY TIME: 1.2 min PROCEDURE NOTE: The procedure, risks, benefits, and alternatives were carefully explained to patient's health hobbies and crafts sales representative and informed consent was obtained. The patient was placed supine on the fluoroscopy table. A timeout was performed. The left neck and chest was prepped and draped in usual sterile fashion. Local anesthesia was administered to the access site with lidocaine. Under ultrasound guidance, the left internal jugular vein was accessed with a 5 Fr micropuncture set. A 0.035 in wire was advanced to the IVC to maintain access during the tunneling process. Next, subcutaneous lidocaine was administered to the chest. Using blunt dissection, a subcutaneous tunnel was created that connects from the upper chest to the venotomy site. The dialysis catheter was pulled through the tunnel. The tract in the vein was dilated and a peel-away sheath was advanced over the wire. The catheter was advanced through the sheath, which was subsequently peeled away. The catheter was tested, flushed, and sutured to the skin with its tip in the high right atrium. A permanent fluoroscopic image of the chest was saved to PACS. The catheter ports were packed with heparin per routine protocol. The patient was stable after the procedure and was transferred to the post anesthesia care unit. This procedure was performed under moderate sedation with a dedicated nurse and continuous monitoring of vital signs. FINDINGS: 1. Patent left internal jugular vein. 2. Placement of a tunneled, dual-lumen hemodialysis catheter as above. 3. Catheter flushes and aspirates very well with a 10 mL syringe. No pneumothorax. IR/IR cvc insert central tunnel IMPRESSION: Placement of a tunneled hemodialysis catheter in the left internal jugular vein. PLAN: -The catheter may be used immediately. This procedure was performed by Karlo Portillo PA-C, and directly supervised by Dr. Panda.
--- NOTE | ~2023-07-22 | CT_ITS ---
EXAMINATION: CT chest wo IV con. CLINICAL INFORMATION: Reason for Exam fever, source not found yet COMPARISON: No prior CT available for comparison. TECHNIQUE: Multidetector volumetric CT imaging of the chest was done. Axial MIP volume rendering provided. Sagittal and coronal reformatted images were obtained. This CT examination was performed using dose optimization techniques as appropriate, variously including the following: *Automated exposure control *Adjustment of mA and/or kV according to patient size (this includes techniques or standardized protocols for targeted exams where dose is matched to indication/reason for exam; i.e. extremities or head) *Use of iterative reconstruction technique CONTRAST: Noncontrasted study. DLP: 198 mGy-cm FINDINGS: PROFILING MACHINE OPERATOR: LINES/TUBES: Right IJ central line catheter tip projecting over the right atrium. LUNGS: Lung parenchyma: Mild interstitial opacification involving especially lung periphery lower lobes more than upper lobes, nonspecific, no evidence of bronchiectasis or pulmonary fibrosis. Lung nodules/masses: No lung mass or suspicious spiculated nodules, there are few scattered tiny nonspecific lung nodular densities measuring up to 4 mm or less. Nonsolid patchy groundglass opacity in the left lower lobe 1.4 x 1.2 cm, may represent patchy infiltrates versus groundglass nodule. AIRWAYS: Trachea and bronchi are normal. PLEURA: No pleural effusion or pneumothorax. MEDIASTINUM AND DEJA: No mediastinal, hilar or axillary lymphadenopathy. No mediastinal mass. VESSELS: HEART AND PERICARDIUM: Thoracic aorta is normal in size. Heart is normal in size. No pericardial effusion. There are heavy coronary calcifications. Pulmonary arteries are normal in size. LOWER NECK, AXILLA: The visualized thyroid gland is unremarkable. No axillary mass or adenopathy. VISUALIZED ABDOMEN: There is ascites. Heterogeneous nodular liver probably liver cirrhosis. There is a hiatal hernia. Hyperdense material in the gallbladder probably gallbladder sludge or stones. Spleen borderline enlarged 12.5 cm. CHEST WALL AND BONES: No chest wall mass. There are incompletely healed right lateral multiple rib fractures. Advanced spondylosis arthritis and reactive discitis changes seen in the cervical spine at the margin of the study however this has not changed from prior CT of 11/19/2021. CT/CT chest wo IV con IMPRESSION: 1. No lung mass or suspicious spiculated nodules, there are few scattered tiny nonspecific lung nodular densities measuring up to 4 mm or less. Nonsolid patchy groundglass opacity in the left lower lobe 1.4 x 1.2 cm, may represent patchy infiltrates versus groundglass nodule. According to the UPDATED 2017 Fleischner Society recommendations, the advised follow-up imaging for a single pure ground-glass nodule measuring 11mm or greater and/or nodules with suspicious features such as bubbly lucencies or cystic areas is: CT at 6 months to confirm persistence. If stable, then follow-up CT every 2 years until 5 years documented stability. Heavy coronary calcification. 2. Mild interstitial lung disease, no evidence of pulmonary fibrosis. 3. Incompletely healed right lateral rib fractures. 4. Ascites. 5. Heterogeneous nodular liver probably liver cirrhosis. 6. Hiatal hernia. 7. Hyperdense material in the gallbladder probably gallbladder sludge or stones. 8. Borderline splenomegaly. 9. Advanced spondylosis arthritis and reactive discitis changes seen in the cervical spine at the margin of the study, this has not changed from prior CT of 11/19/2021. Please correlate with patient's area of pain. If infection discitis suspected, consider correlation with follow-up contrast enhanced MRI cervical spine
--- NOTE | ~2023-07-22 | CT_ITS ---
EXAMINATION: CT ABDOMEN AND PELVIS WITHOUT CONTRAST CLINICAL INFORMATION: Renal failure and cirrhosis. COMPARISON: 07/07/2023 TECHNIQUE: Multidetector volumetric imaging was performed from the superior aspect of the liver through the pubic symphysis. Sagittal and coronal reformatted images were obtained on the technologist's workstation. This CT examination was performed using dose optimization techniques as appropriate, variously including the following: *Automated exposure control *Adjustment of mA and/or kV according to patient size (this includes techniques or standardized protocols for targeted exams where dose is matched to indication/reason for exam; i.e. extremities or head) *Use of iterative reconstruction technique DLP: 428 mGy-cm FINDINGS: LUNG BASES: The visualized lung bases are unremarkable. LIVER, GALLBLADDER, AND BILIARY TREE: The liver is small and irregular in contour. No focal liver lesions are seen. There is no intrahepatic biliary duct dilatation. A few small gallstones are noted. PANCREAS: Unremarkable. SPLEEN: Unremarkable. ADRENAL GLANDS: Unremarkable. KIDNEYS AND URETERS: The kidneys are normal in size, shape, and attenuation. No hydronephrosis, hydroureter, or calculi seen. No perinephric stranding. BLADDER: The urinary bladder is decompressed with a Yao catheter in place. GASTROINTESTINAL TRACT: There appears to be mild right colonic thickening. There is no evidence for bowel obstruction. The appendix is not confidently identified. ABDOMINAL WALL: There is soft tissue anasarca. LYMPH NODES: Normal. VASCULAR: There is atherosclerotic plaque of the abdominal aorta. PELVIC VISCERA: Unremarkable. FLUID: There is large volume ascites. OSSEOUS STRUCTURES: The bony structures are osteopenic. CT/CT abdomen pelvis wo IV con IMPRESSION: 1. Cirrhotic liver with large volume ascites. There is also soft tissue anasarca. 2. Cholelithiasis. 3. Mild right colonic wall thickening. This may be secondary to portal colopathy. Fleischner guidelines were followed.
--- NOTE | ~2023-07-22 | US_ITS ---
Ultrasound paracentesis History: Ascites. Risks and benefits and possible complications were discussed with the patient and consent form was signed. A safe pocket of ascitic fluid was identified using ultrasound guidance, and the overlying skin was marked. The abdomen prepped and draped in sterile fashion. 1% lidocaine was used as a local anesthetic. Using ultrasound guidance, a 5 fr catheter was placed into the ascitic pocket. 5.0 liters of sid fluid was removed passively. The catheter was then removed. A few scheduling representative images from before and after the examination were obtained. The procedure was performed by Karlo Portillo PA-C and supervised by Dr. Leigh. US/US paracentesis abd w/image Impression: Ultrasound-guided paracentesis as described above. No immediate complications
--- NOTE | ~2023-07-22 | IR_ITS ---
Permacath removal Patient presents with a tunneled dialysis catheter. Patient has enterococcus bacteremia. Nephrology requests removal of the catheter The right chest was prepped and draped in routine sterile fashion. 1% lidocaine was used for local anesthesia. Using blunt dissection, the tunneled dialysis catheter was removed from the chest wall without complication. After hemostasis was obtained, a dry sterile dressing was applied. Patient tolerated the procedure well. IR/IR cvc remov tunnel wo prt/shoulder boner Impression: Permacath removal This procedure was performed by Karlo Portillo PA-C and supervised by Dr. Panda
[2023-07-22 21:18] VITALS: BP 80/42; BP 94/62; PULSE 110; PULSE 124; RESP 16; TEMP 37.7; O2SAT 97; O2SAT 98; BMI 24.6
--- NOTE | 2023-07-22 21:41 | ED_ITS ---
HPI - General Adult General Chief complaint: Fever Stated complaint: from [facility], 101.8 fever, jaundiced Time Seen by Provider: 07/22/23 21:41 History of Present Illness HPI narrative: The patient is a 63-year-old woman with a history of alcoholic cirrhosis has a history of renal failure on dialysis. The patient lives at a alf. The patient has been hospitalized at this hospital twice in the last few months. She was hospitalized from June 05 through June 20. She was again hospitalized from July 03 through July 18, 3 days ago. The patient has been receiving dialysis on Tuesdays, , and Saturdays. The patient has also been having problems with jaundice. The patient was sent to the emergency room today from her alf because of complaints of a fever and a cough. Apparently she had a temperature of 101.8 at the alf today, she was also noticed to have a heart rate of 121 and they thought that she was breathing somewhat fast. She was sent to the emergency room for that reason. The patient herself is quite vague and was not certain why she was sent to the hospital. She describes diffuse body discomfort. Related Data Home Medications ?Medication ?Instructions ?Recorded ?Confirmed rifaximin 550 mg tablet 550 mg PO BID 07/04/23 07/04/23 Previous Rx's ?Medication ?Instructions ?Recorded folic acid 1 mg tablet 1 mg PO DAILY 30 days #30 tabs 06/21/23 lactulose 20 gram/30 mL oral 20 g (30 mL) PO DAILY 30 days #900 06/21/23 solution mL magnesium oxide 400 mg (241.3 mg 400 mg PO DAILY 300 days #300 tabs 06/21/23 magnesium) tablet metoprolol tartrate 25 mg tablet 12.5 mg (1/2 x 25 mg) PO BID 30 06/21/23 days #30 tabs omeprazole 40 mg capsule,delayed 40 mg PO DAILY@0630 30 days #30 06/21/23 release caps thiamine mononitrate (vit B1) 100 100 mg PO DAILY 30 days #30 tabs 06/21/23 mg tablet midodrine 10 mg tablet 10 mg PO TID #90 tabs 07/19/23 Allergies Allergy/AdvReac Type Severity Reaction Status Date / Time codeine [CODEINE] Allergy Unknown NAUSEA Verified 07/22/23 21:24 Review of Systems 2 Review of Systems: Yes all other systems are reviewed and are negative PMFSH Past Medical History Medical History Acute kidney injury Hepatic encephalopathy Alcoholic hepatitis Thrombocytopenia Portal venous hypertension Abdominal ascites Hyperlipidemia GERD (gastroesophageal reflux disease) Hypertension Cirrhosis Alcohol abuse Surgical History Hx of section History of back surgery Hx of esophagogastroduodenoscopy Hx of colonoscopy Social History Social History Household Members: None Housing: Other Housing Other:: trailer Do you presently have visiting nurse or other home services: No Alcohol intake: former Patient Tobacco Use Status: Current everyday Tobacco user Tobacco use type: Cigarette Cigarette Packs Per Day: 1 Cigarettes Per Day: 1 Years Smoked: 40 Smoked in Last 30 Days: No Second Hand Smoke Exposure: No Use of substances other than those prescribed or required for medical reasons: No Advance Directives: No Advance Directives Information Provided: No Patient : No service: No Physical Exam ED Vital Signs: Vital Signs - 24 hr 07/22/23 21:18 07/22/23 22:18 07/22/23 23:06 Temperature 99.9 F 100.1 F 98.8 F Pulse Rate 124 H 108 H 116 H Respiratory Rate 16 16 16 Blood Pressure 80/42 L 105/51 L 113/61 Pulse Oximetry 98 97 96 Oxygen Delivery Method Room Air Room Air Room Air 07/22/23 23:15 07/22/23 23:30 07/23/23 01:58 Temperature 100.4 F 100.4 F 100.4 F Pulse Rate 127 H 115 H Respiratory Rate 18 18 Blood Pressure 102/53 L 104/58 L Pulse Oximetry 96 95 Oxygen Delivery Method Room Air Room Air 07/23/23 06:37 Temperature 98.8 F Pulse Rate 104 H Respiratory Rate 16 Blood Pressure 86/47 L Pulse Oximetry 95 Oxygen Delivery Method Room Air BMI result Body Mass Index 24.6 Const Other: The patient is a jaundice, very chronically ill looking 63-year-old. She was awake and alert. She seems frail but not in acute distress. HENMT Other: Face is symmetrical. Mucous membranes moist. Eyes Other: Scleral icterus is present. Pupils are round equal, extraocular movements intact Neck Neck: Yes no JVD Chest Other: There is a dialysis catheter in the right subclavian area Resp Effort & Inspection: normal respiratory effort Auscultation: clear to auscultation bilaterally Cardio Rate: regular rate Rhythm: regular rhythm Heart sounds: S1 normal heart sound present and S2 normal heart sound present GI Other: Abdomen is protuberant in a manner consistent with ascites. She had some mild diffuse tenderness but no definite focal tenderness. Skin Other: The skin is quite jaundiced. There are also multiple areas of ecchymosis in multiple places Neuro Other: The patient is awake and alert. Face is symmetrical. Eye movements intact. She seems to move her extremities symmetrically. She seems quite deconditioned but does not seem to have any focal findings. Extrem Other: No peripheral edema Medications Administered Discontinued Medications Generic Name Dose Route Start Last Admin Trade Name Freq PRN Reason Stop Dose Admin Sodium Chloride 1,000 mls @ 999 mls/hr 07/22/23 22:00 07/22/23 22:45 Ns IV 07/22/23 23:00 Infused .Q1H1M JOSE ALFREDO Infusion Piperacillin Sod/Tazobactam 100 mls @ 200 mls/hr 07/22/23 22:09 07/22/23 23:05 Sod 4.5 gm/ Sodium Chloride IV 07/22/23 22:38 Infused ONCE ONE Infusion Vancomycin HCl 1,500 mg/ 500 mls @ 333.333 mls/hr 07/22/23 22:10 07/23/23 01:25 Sodium Chloride IV 07/22/23 23:39 Infused ONCE ONE Infusion Lactated Ringer's 1,000 mls @ 999 mls/hr 07/23/23 02:30 07/23/23 04:45 Lr IV 07/23/23 03:30 Infused .Q1H1M JOSE ALFREDO Infusion Lidocaine HCl 5 ml 07/22/23 22:46 07/22/23 22:40 Lidocaine Hcl 1 % 20 Ml Vial INFILTRATI 07/22/23 22:47 5 ml ONCE ONE Administration Lidocaine HCl 5 ml 07/23/23 02:19 07/23/23 02:31 Lidocaine Hcl 1 % 20 Ml Vial INFILTRATI 07/23/23 02:20 Not Given ONCE ONE Procedures Paracentesis Time Out Performed: Yes (Ultrasound used to locate a pocket of fluid.) Local Anesthetic: lidocaine 1% Amount of anesthesia used (mL): 3 Fluid: bloody (Fluid was serosanguineous) and sent to lab for analysis Post Procedure Exam: awake, alert Patient Tolerated Procedure: well and no complications Complications: none Medical Decision Making Medical Decision Making MDM Narrative: The patient is a 63-year-old female with a history of cirrhosis and kidney failure who was sent to the emergency room from her alf after being found to have a fever and tachypnea. No obvious source of fever was found on her exam. She has a distended abdomen consistent with the ascites. Chest x-ray showed a definite infiltrate. With regard to the possibility of a UTI the patient claims that she makes some urine and that she has not had any dysuria. a urinary catheter was placed in hopes of collecting a urine sample but so far no urine has come through the catheter. A diagnostic paracentesis was done by me at the bedside. Consent was obtained from the patient who has had previous paracentesis. A time-out was called with the nurse prior to the procedure. The procedure was done with ultrasound visualization of ascites prior to the procedure. I used the ultrasound to darrion the spot with a large fluid pocket in the right lower quadrant. I used color Doppler to look for possible abdominal wall blood vessels and did not see any. Was prepped with a chlorhexidine. I anesthetized the abdominal wall with a 1% plain lidocaine with 3 mL of lidocaine. I then used a 21 gauge needle which I advanced in a Z-plasty method to obtain ascites fluid. The ascites was serosanguineous. I aspirated approximately 30 mL of ascites and then withdrew the needle and applied a Band-Aid. The patient's initial lactate was 2.9. Empiric antibiotics were given after blood cultures were drawn. Piperacillin/tazobactam and vancomycin. The CT of the abdomen and pelvis was done to look for a possible source of infection but no significant findings were made. We hoped to evaluate the patient's urine (although she denies having any dysuria) and placed a urinary catheter in the bladder but after many hours of observation with IV fluids the patient does not seem to be making any urine. I consulted the hospitalist. The patient will be admitted to the hospitalist service for further evaluation of this fever. The hospitalist also obtained a noncontrast CT of the chest to better evaluate the chest for a possible source of fever. The patient's lactates improved. The patient was given additional IV fluids. The patient was admitted to the hospitalist service. Lab Data 07/22/23 21:48 07/22/23 21:47 Labs: Lab Results 07/22/23 07/22/23 07/22/23 Range/Units 21:47 21:48 21:53 WBC 12.8 H (4.8-10.8) X10*3/uL RBC 2.71 L (4.20-5.50) X10*6/uL Hgb 9.5 L (12.0-16.0) g/dl Hct 25.8 L (37.0-47.0) % MCV 95.2 (80.0-98.0) fL MCH 35.1 H (27.0-33.0) pg MCHC 36.8 H (31.0-35.0) g/dl RDW 20.7 H (11.0-16.0) % Plt Count 57 L (160-400) X10*3/uL MPV 10.8 (9.4-12.3) fL Immature Gran % (Auto) 0.6 H (0.0-0.4) % Neut % (Auto) 80.6 H (45-73) % Lymph % (Auto) 6.2 L (20-40) % [place] % (Auto) 11.9 H (2-11) % Eos % (Auto) 0.3 (0-4) % Baso % (Auto) 0.4 (0-2) % Lymph # (Auto) 0.8 L (1.2-4.9) X10*3/uL [place] # (Auto) 1.5 H (0.1-1.2) X10*3/uL Eos # (Auto) 0.0 (0.0-0.4) X10*3/uL Baso # (Auto) 0.1 (0.0-0.2) X10*3/uL Abs Immat Gran (auto) 0.08 H (0.00-0.03) X10*3/uL Absolute Neuts (auto) 10.3 H (2.0-8.3) x10*3/uL Absolute Nucleated RBC 0.000 (0.0-0.012) X10*3/uL Nucleated RBC % (auto) 0.0 (0.0-0.2) /100WBC Smear Tech's Comments VERIFIED PT 24.9 H (11.1-13.3) SEC INR 2.0 H (0.9-1.1) VBG pH 7.48 H (7.32-7.43) VBG pCO2 35 mmHg VBG pO2 56 mmHg VBG HCO3 26 (22-26) mmol/L VBG O2 Saturation 90.0 % VBG Base Excess 3.5 mmol/L Sodium 133 L (135-145) mmol/L Potassium 3.6 (3.3-5.1) mmol/L Chloride 94 L (96-108) mmol/L Carbon Dioxide 25 (22-29) mmol/L Anion Gap 18 (12-20) BUN 21 H (9-16) mg/dL Creatinine 5.00 H* (0.5-1.4) mg/dL Estim Creat Clear Calc 8.9 Estimated GFR 9 Random Glucose 138 H (60-115) mg/dL Lactic Acid 2.9 H* (0.5-2.0) mmol/L Lactic Acid F/U @ 2Hr (0.5-2.0) mmol/L Lactic Acid F/U @ 4Hr (0.5-2.0) mmol/L Calcium 9.3 (8.4-10.2) mg/dL Magnesium 2.2 (1.6-2.6) mg/dL Total Bilirubin 33.9 H (0.0-1.0) mg/dL Direct Bilirubin 24.4 H (0.0-0.5) mg/dL AST 53 H (5-31) U/L ALT 8 (0-31) U/L Alkaline Phosphatase 173 H (39-117) U/L Ammonia 37 (13-55) umol/L Troponin I High Sens 25.2 H (<3.5-17.0) ng/L C-Reactive Protein 8.30 H (< or = 0.50) mg/dL Total Protein 5.6 L (6.5-8.0) g/dL Albumin 3.6 (3.5-5.0) g/dL Peritoneal WBC X10*3/uL Peritoneal RBC X10*6/uL Periton Neutrophils % Periton Lymphocytes % Peritoneal Monocytes % 07/22/23 07/22/23 07/23/23 Range/Units 23:22 23:40 02:28 WBC (4.8-10.8) X10*3/uL RBC (4.20-5.50) X10*6/uL Hgb (12.0-16.0) g/dl Hct (37.0-47.0) % MCV (80.0-98.0) fL MCH (27.0-33.0) pg MCHC (31.0-35.0) g/dl RDW (11.0-16.0) % Plt Count (160-400) X10*3/uL MPV (9.4-12.3) fL Immature Gran % (Auto) (0.0-0.4) % Neut % (Auto) (45-73) % Lymph % (Auto) (20-40) % [place] % (Auto) (2-11) % Eos % (Auto) (0-4) % Baso % (Auto) (0-2) % Lymph # (Auto) (1.2-4.9) X10*3/uL [place] # (Auto) (0.1-1.2) X10*3/uL Eos # (Auto) (0.0-0.4) X10*3/uL Baso # (Auto) (0.0-0.2) X10*3/uL Abs Immat Gran (auto) (0.00-0.03) X10*3/uL Absolute Neuts (auto) (2.0-8.3) x10*3/uL Absolute Nucleated RBC (0.0-0.012) X10*3/uL Nucleated RBC % (auto) (0.0-0.2) /100WBC Smear Tech's Comments PT (11.1-13.3) SEC INR (0.9-1.1) VBG pH (7.32-7.43) VBG pCO2 mmHg VBG pO2 mmHg VBG HCO3 (22-26) mmol/L VBG O2 Saturation % VBG Base Excess mmol/L Sodium (135-145) mmol/L Potassium (3.3-5.1) mmol/L Chloride (96-108) mmol/L Carbon Dioxide (22-29) mmol/L Anion Gap (12-20) BUN (9-16) mg/dL Creatinine (0.5-1.4) mg/dL Estim Creat Clear Calc Estimated GFR Random Glucose (60-115) mg/dL Lactic Acid (0.5-2.0) mmol/L Lactic Acid F/U @ 2Hr 2.8 H* (0.5-2.0) mmol/L Lactic Acid F/U @ 4Hr 2.0 (0.5-2.0) mmol/L Calcium (8.4-10.2) mg/dL Magnesium (1.6-2.6) mg/dL Total Bilirubin (0.0-1.0) mg/dL Direct Bilirubin (0.0-0.5) mg/dL AST (5-31) U/L ALT (0-31) U/L Alkaline Phosphatase (39-117) U/L Ammonia (13-55) umol/L Troponin I High Sens (<3.5-17.0) ng/L C-Reactive Protein (< or = 0.50) mg/dL Total Protein (6.5-8.0) g/dL Albumin (3.5-5.0) g/dL Peritoneal WBC 0.330 X10*3/uL Peritoneal RBC 0.242 X10*6/uL Periton Neutrophils 12 % Periton Lymphocytes 20 % Peritoneal Monocytes 68 % Critical Care Time Critical Care Time Critical Care Time: Yes Total Critical Care Time: 35 Attestation: The patient was critically ill with a high probability of imminent or life- threatening deterioration. ?I spent greater than 30 minutes of discontinuous time evaluating the patient, delivering critical care at the bedside, discussing evaluating data with consultants. ?Critical care time does not include time spent performing separately billable procedures or teaching. ?Time spent performing critical care with 35 minutes. Discharge Plan Discharge Clinical Impression: Fever, Cirrhosis, Chronic renal failure Patient Disposition: Admitted As Inpatient Print Language: Finnish
[2023-07-22 21:56] LABS: Basophils Absolute Auto 0.1 X10*3/uL (0.0-0.2); Basophils Percent Auto 0.4 % (0-2); Eosinophils Percent Auto 0.3 % (0-4); Hematocrit 25.8 % (37.0-47.0); Hemoglobin 9.5 g/dl (12.0-16.0); Imm Gran Abs Auto 0.08 X10*3/uL (0.00-0.03); Imm Gran Pct Auto 0.6 % (0.0-0.4); Lymphocytes Absolute Auto 0.8 X10*3/uL (1.2-4.9); Lymphocytes Percent Auto 6.2 % (20-40); MANUAL DIFF FLAG SCAN; Mean Corpuscular HGB Conc 36.8 g/dl (31.0-35.0); Mean Corpuscular Hemoglobin 35.1 pg (27.0-33.0); Mean Corpuscular Volume 95.2 fL (80.0-98.0); Mean Platelet Volume 10.8 fL (9.4-12.3); Monocytes Absolute Auto 1.5 X10*3/uL (0.1-1.2); Monocytes Percent Auto 11.9 % (2-11); Neutrophils Absolute Auto 10.3 x10*3/uL (2.0-8.3); Neutrophils Percent Auto 80.6 % (45-73); Red Blood Count 2.71 X10*6/uL (4.20-5.50); Red Cell Distribution Width 20.7 % (11.0-16.0); SCAN SMEAR FLAG 1; White Blood Count 12.8 X10*3/uL (4.8-10.8)
[2023-07-22 21:57] LABS: Platelet Count 57 X10*3/uL (160-400)
[2023-07-22] MEDS: 0.9 % Sodium Chloride 1,000 ML 999 ML IV (21:58)
[2023-07-22 22:02] LABS: VBG Base Excess 3.5 mmol/L; VBG HCO3 26 mmol/L (22-26); VBG pCO2 35 mmHg; VBG pH 7.48 (7.32-7.43); VBG pO2 56 mmHg
[2023-07-22 22:03] LABS: Prothrombin Time 24.9 SEC (11.1-13.3)
[2023-07-22 22:04] LABS: Venous Blood Gas Refer to POC result
[2023-07-22 22:13] LABS: Lactic Acid 2.9 mmol/L (0.5-2.0)
[2023-07-22 22:14] LABS: SLIDE REVIEW VERIFIED
[2023-07-22 22:18] VITALS: BP 105/51; PULSE 108; RESP 16; TEMP 37.8; O2SAT 97
[2023-07-22 22:19] LABS: Ammonia 37 umol/L (13-55); Troponin-I High Sensitivity 25.2 ng/L (<3.5-17.0)
[2023-07-22] MEDS: Piperacillin Sodium/Tazobactam 4.5 GM in 0.9 % Sodium Chloride 100 ML IV (22:23)
[2023-07-22 22:35] LABS: Alanine Aminotransferase 8 U/L (0-31); Albumin Level 3.6 g/dL (3.5-5.0); Alkaline Phosphatase 173 U/L (39-117); Anion Gap 18 (12-20); Aspartate Amino Transferase 53 U/L (5-31); Blood Urea Nitrogen 21 mg/dL (9-16); Calcium 9.3 mg/dL (8.4-10.2); Carbon Dioxide 25 mmol/L (22-29); Chloride 94 mmol/L (96-108); Creatinine Clr Calc Pharmacy 8.9; Estimated Glomerular Filt Rate 9; Glucose Random 138 mg/dL (60-115); Magnesium 2.2 mg/dL (1.6-2.6); Potassium 3.6 mmol/L (3.3-5.1); Sodium 133 mmol/L (135-145); Total Protein 5.6 g/dL (6.5-8.0)
[2023-07-22 22:40] LABS: Bilirubin Direct 24.4 mg/dL (0.0-0.5); Bilirubin Total 33.9 mg/dL (0.0-1.0)
[2023-07-22] MEDS: Lidocaine HCl 1 % 20 ML VIAL 5 ML INFILTRATI (22:40)
[2023-07-22 23:06] VITALS: BP 113/61; PULSE 116; RESP 16; TEMP 37.1; O2SAT 96
[2023-07-22 23:15] VITALS: TEMP 38
[2023-07-22] MEDS: vancomycin HCL 1,500 MG in 0.9 % Sodium Chloride 500 ML 333.33 MG IV (23:20)
[2023-07-22 23:30] VITALS: BP 102/53; PULSE 127; RESP 18; TEMP 38; O2SAT 96
[2023-07-22 23:38] LABS: MN% 84.6 %; PMN% 15.4 %; RBC Peritoneal Fluid 0.242 X10*6/uL
[2023-07-22 23:54] LABS: Reflex Lactate? Lactic Acid Added
[2023-07-23 00:13] LABS: ~Lactic Acid-LAB USE ONLY 2.8 mmol/L (0.5-2.0)
[2023-07-23 00:37] LABS: BF Shift QC OK YES; Lymphocyte Peritoneal Fl 20 %; Monocytes Peritoneal Fl 68 %; Neutrophils Peritoneal Fluid 12 %
--- NOTE | 2023-07-23 01:51 | PC.NURSE ---
documentation delayed d/t system downtime. 1L NS infused @ 2245, BP 113/61 HR 116, 102/53 HR 127 w/in hour of infusion. provider aware, no order for more IVF per MD both ordered ABX infused. paracentesis with consent at @2254, time out done at bedside with MD @2253 40 ml drained, sent to lab catheter placed with temp sensing @0010, no urine output critical lactic 2.8 @0013, no new orders
[2023-07-23 01:56] LABS: Reflex Lactate? 2 Y
[2023-07-23 01:58] VITALS: BP 104/58; PULSE 115; RESP 18; TEMP 38; O2SAT 95
[2023-07-23] MEDS: Lactated Ringers 1,000 ML 999 ML IV ×2 (02:31→08:27)
--- NOTE | 2023-07-23 02:33 | PC.NURSE ---
no urine output, MD order IV fluids
[2023-07-23 06:37] VITALS: BP 86/47; PULSE 104; RESP 16; TEMP 37.1; O2SAT 95
[2023-07-23 08:24] VITALS: BP 102/60; PULSE 112; RESP 14; TEMP 36.6; O2SAT 97
--- NOTE | 2023-07-23 09:15 | PC.NURSE ---
Paused IV fluid ( LR) per hospitalist
--- NOTE | 2023-07-23 09:27 | P.HPHOSP_ITS ---
History of Present Illness Date of Service: 07/23/23 Attending physician on admission: Michi Medrano Chief Complaint: fevers, cough 63-year-old female with history of alcoholic cirrhosis complicated by portal vein hypertension and ascites, hepatic encephalopathy on lactulose and rifaximin, alcohol use disorder, gout, hypertension, GERD presented to the ED yesterday evening from SNF due to fevers of 101.8 and cough. While at the facility, was also noted to be tachypneic with heart rate of 121. The patient is a vague historian and is unable to provide much history. Believes she has had a cough for the last week. She was just discharged from our facility 3 days ago after being hospitalized July 03- for acute decompensated cirrhosis and HRS started on HD TThSat (last dialyzed ), permacath in place R chest, as well as hospitalization 06/05-06/20 for acute alcoholic hepatitis though prednisone had to be discontinued due to GI bleed. Last alcohol consumption was on Tuesday, she has not a liver transplant candidate. Since arrival, patient febrile to 100.4 and tachycardic to 124. She was hypotensive to 86/47 with recovery to 126/72 on admission following IV fluids. She has a leukocytosis of 12.8. Stable, chronic normocytic anemia with H/H 9.5/25.8%, chronic thrombocytopenia with PLT 57. Creatinine 5.15, BUN 21. Sodium 133, chloride 94, electrolytes otherwise normal. Lactic acid on admission 2.9 --> 2.8--> 2.0. Total bilirubin 33.9, direct bilirubin 24.4, AST 53, ALT 8. Initial troponin 25, repeat pending. CRP 8.30, PCT pending. PT 24.9, INR 2.0. Diagnostic paracentesis performed in the ED, not indicative of SBP. RPP negative. CT abdomen/pelvis shows cirrhotic liver with large volume ascites and soft tissue anasarca. There is also mild right colonic wall thickening likely secondary to portal colopathy. Chest CT negative for lung mass or suspicious spiculated nodules. However there is a non solid patchy ground-glass opacity in the left lower lobe measuring 1.4 x 1.2 cm possibly representing patchy infiltrates versus ground-glass nodule, repeat CT recommended every 2-5 years. There is also noted mild interstitial lung disease, incompletely healed right lateral rib fractures as well as other chronic findings. She does have Yao catheter in place and without any urine output noted since placement. She does produce urine at baseline. IV fluids discontinued following 2L administration. Review of Systems 2 Review of Systems: Yes Unobtainable due to mental status [facility] Medical History Acute kidney injury Hepatic encephalopathy Alcoholic hepatitis Thrombocytopenia Portal venous hypertension Abdominal ascites Hyperlipidemia GERD (gastroesophageal reflux disease) Hypertension Cirrhosis Alcohol abuse Surgical History Hx of section History of back surgery Hx of esophagogastroduodenoscopy Hx of colonoscopy Social History Household Members: None Housing: Other Housing Other:: trailer Do you presently have visiting nurse or other home services: No Alcohol intake: former Patient Tobacco Use Status: Current everyday Tobacco user Tobacco use type: Cigarette Cigarette Packs Per Day: 1 Cigarettes Per Day: 1 Years Smoked: 40 Smoked in Last 30 Days: No Second Hand Smoke Exposure: No Use of substances other than those prescribed or required for medical reasons: No Advance Directives: No Advance Directives Information Provided: No Patient : No service: No Meds Allergies Allergy/AdvReac Type Severity Reaction Status Date / Time codeine [CODEINE] Allergy Unknown NAUSEA Verified 07/22/23 21:24 Active Medications: Current Medications Ceftriaxone Sodium 2 gm/ (Sodium Chloride) 50 mls @ 100 mls/hr IV Q24H [facility] Pharmacy Consult (Consult Rx Vancomycin Dosing) 1 each MISCELLANE DAILY PRN PRN Reason: Consult order Home Medications ?Medication ?Instructions ?Recorded ?Confirmed ?Last Taken ?Type rifaximin 550 mg tablet 550 mg PO BID 07/04/23 07/23/23 07/03/23 History bisacodyl 10 mg rectal suppository 10 mg [place] DAILY PRN Constipation 07/23/23 07/23/23 Unknown History (Dulcolax (bisacodyl)) magnesium hydroxide 400 mg/5 mL 30 ml PO DAILY PRN Constipation 07/23/23 07/23/23 Unknown History oral suspension (Milk of Magnesia) sodium phosphates 19 gram-7 118 ml NH DAILY PRN Constipation 07/23/23 07/23/23 Unknown History gram/118 mL enema (Fleet Enema) Physical Exam 2 Vital Signs and Narrative: Vital Signs: Last Vital Signs Temp 97.8 F 07/23/23 08:24 Pulse 112 H 07/23/23 08:24 Resp 14 07/23/23 08:24 BP 102/60 07/23/23 08:24 Pulse Ox 97 07/23/23 08:24 O2 Del Method Room Air 07/23/23 08:24 BMI result Body Mass Index 24.6 Constitutional - Awake and Alert, No apparent distress Eyes - PERRLA, EOMI. +scleral icterus Cardiovascular - S1S2, RRR, No edema Respiratory - Normal lung expansion, Normal respiratory effort, No respiratory distress, CTA bilaterally Gastrointestinal - NT / ND; +BS; No rebound or guarding. No asterixis Extremities - no calf tenderness bilaterally, no swelling Skin - Warm/Dry. +Jaundice. Permacath in place R upper chest with surrounding ecchymosis but no erythema, warmth, purulent drainage noted Neurological - Alert & oriented x3 Psychological - Appropriate affect Results Labs 07/22/23 21:48 07/23/23 11:38 Labs: Laboratory Results - last 24 hr 07/22/23 07/22/23 07/22/23 21:47 21:48 21:53 MCV 95.2 MCH 35.1 H MCHC 36.8 H RDW 20.7 H Plt Count 57 L MPV 10.8 Immature Gran % (Auto) 0.6 H Neut % (Auto) 80.6 H Lymph % (Auto) 6.2 L [place] % (Auto) 11.9 H Eos % (Auto) 0.3 Baso % (Auto) 0.4 Lymph # (Auto) 0.8 L [place] # (Auto) 1.5 H Eos # (Auto) 0.0 Baso # (Auto) 0.1 Abs Immat Gran (auto) 0.08 H Absolute Neuts (auto) 10.3 H Absolute Nucleated RBC 0.000 Nucleated RBC % (auto) 0.0 Smear Tech's Comments VERIFIED PT 24.9 H INR 2.0 H VBG pH 7.48 H VBG pCO2 35 VBG pO2 56 VBG HCO3 26 VBG O2 Saturation 90.0 VBG Base Excess 3.5 Anion Gap 18 Estim Creat Clear Calc 8.9 Estimated GFR 9 Random Glucose 138 H Lactic Acid 2.9 H* Lactic Acid F/U @ 2Hr Lactic Acid F/U @ 4Hr Calcium 9.3 Magnesium 2.2 Total Bilirubin 33.9 H Direct Bilirubin 24.4 H AST 53 H ALT 8 Alkaline Phosphatase 173 H Ammonia 37 Troponin I High Sens 25.2 H C-Reactive Protein 8.30 H Total Protein 5.6 L Albumin 3.6 Peritoneal WBC Peritoneal RBC Periton Neutrophils Periton Lymphocytes Peritoneal Monocytes 07/22/23 07/22/23 07/23/23 23:22 23:40 02:28 MCV MCH MCHC RDW Plt Count MPV Immature Gran % (Auto) Neut % (Auto) Lymph % (Auto) [place] % (Auto) Eos % (Auto) Baso % (Auto) Lymph # (Auto) [place] # (Auto) Eos # (Auto) Baso # (Auto) Abs Immat Gran (auto) Absolute Neuts (auto) Absolute Nucleated RBC Nucleated RBC % (auto) Smear Tech's Comments PT INR VBG pH VBG pCO2 VBG pO2 VBG HCO3 VBG O2 Saturation VBG Base Excess Anion Gap Estim Creat Clear Calc Estimated GFR Random Glucose Lactic Acid Lactic Acid F/U @ 2Hr 2.8 H* Lactic Acid F/U @ 4Hr 2.0 Calcium Magnesium Total Bilirubin Direct Bilirubin AST ALT Alkaline Phosphatase Ammonia Troponin I High Sens C-Reactive Protein Total Protein Albumin Peritoneal WBC 0.330 Peritoneal RBC 0.242 Periton Neutrophils 12 Periton Lymphocytes 20 Peritoneal Monocytes 68 Imaging Radiologist's Impressions: Impressions Chest X-Ray 07/22/23 21:55 IMPRESSION: No acute pulmonary findings. Borderline low lung volumes. Abdomen/Pelvis CT 07/23/23 01:15 IMPRESSION: 1. Cirrhotic liver with large volume ascites. There is also soft tissue anasarca. 2. Cholelithiasis. 3. Mild right colonic wall thickening. This may be secondary to portal colopathy. Fleischner guidelines were followed. Chest CT 07/23/23 06:25 IMPRESSION: 1. No lung mass or suspicious spiculated nodules, there are few scattered tiny nonspecific lung nodular densities measuring up to 4 mm or less. Nonsolid patchy groundglass opacity in the left lower lobe 1.4 x 1.2 cm, may represent patchy infiltrates versus groundglass nodule. According to the UPDATED 2017 Fleischner Society recommendations, the advised follow-up imaging for a single pure ground-glass nodule measuring 11mm or greater and/or nodules with suspicious features such as bubbly lucencies or cystic areas is: CT at 6 months to confirm persistence. If stable, then follow-up CT every 2 years until 5 years documented stability. Heavy coronary calcification. 2. Mild interstitial lung disease, no evidence of pulmonary fibrosis. 3. Incompletely healed right lateral rib fractures. 4. Ascites. 5. Heterogeneous nodular liver probably liver cirrhosis. 6. Hiatal hernia. 7. Hyperdense material in the gallbladder probably gallbladder sludge or stones. 8. Borderline splenomegaly. 9. Advanced spondylosis arthritis and reactive discitis changes seen in the cervical spine at the margin of the study, this has not changed from prior CT of 11/19/2021. Please correlate with patient's area of pain. If infection discitis suspected, consider correlation with follow-up contrast enhanced MRI cervical spine Assessment and Plan (1) Severe sepsis: Status: Acute (2) Gram-positive bacteremia: Status: Acute Plan 63-year-old female with history of alcoholic cirrhosis complicated by portal vein hypertension and ascites, hepatic encephalopathy on lactulose and rifaximin, alcohol use disorder, gout, hypertension, GERD admitted for further management of suspected strep bacteremia with possible line sepsis and pneumonia #Gram positive bacteremia -BC with GPC in pairs x2, suspect strep bacteremia -?line sepsis vs pneumonia -IV vanco until final cultures and IV ctx 2g (initiated 07/22) -ID consult -nephrology consult to evaluate line -Repeat cultures pending #Possible line sepsis -IV vanco and ctx as above -ID and nephro consult #LLL pneumonia -IV vanco and ctx as above -strep pneumo antigen, Legionella antigen, sputum culture pending -guaifenesin p.r.n. -Follow CBC/Cultures #Severe sepsis- due to above -met severe sepsis at 2147 07/21 with lactic acid 2.9, resolved with IVF. Febrile to 101.8 at facility and tachycardic. No fevers since admission. Resolved by admission. #Acute diarrhea -cdiff pcr and gi panel pending -hold lactulose this am #BRBPR -not on steroids -inr 2.0, give 5mg vitamin k x 1 now -octreotide for now -H/H baseline -Monitor for now, GI consult -follow H/H #HRS/ESRD on HD TThSat -due for HD today -concern for line sepsis as above -Nephrology consult. HD RN to evaluate line and need for replacement #Decompensated hepatic cirrhosis complicated by ascites, portal vein hypertension. She is NOT a candidate for transplant -Cholestatic phase now with chronic T.Bili evevation in the 30s. INR 2.0, vitamin K as abvoe. No steroids given recent/current GIB -bedside dx paracentesis negative for SBP. Consider IR drainage tuesday if symtpomatic. HD as scheduled -Hold lactulose today. continue rifaximin -GI consult #Chronic blood loss anemia in setting of cirrhosis -h/h stable, above transfusion threshold -continue monitoring # chronic thrombocytopenia -due to cirrhosis DVT prophylaxis- SCPs Full code Pt requires inpt stay at least 2 midnights for management of severe sepsis due to possible line infection vs pneumonia with gram positive bacteremia requiring iv abx, expert consultation, and close monitoring of blood cultures Quality Stroke Does the patient have a stroke diagnosis?: No VTE Prior VTE?: No VTE Risk Level:: Medical - moderate - high VTE Device Contraindication: N/A - Device Ordered VTE Drug Contraindication: Treatment Not Indicated
--- NOTE | 2023-07-23 09:45 | PHA.MEDREC ---
Pharmacy Consult ? Medication Reconciliation Pharmacy has completed the medication reconciliation.Med rec complete, used list from Armin GORDON
[2023-07-23] MEDS: cefTRIAXone sodium 2 GM in 0.9 % Sodium Chloride 50 ML IV (10:27)
[2023-07-23 11:32] VITALS: BP 108/62; PULSE 90; RESP 16; TEMP 36.2; O2SAT 98
[2023-07-23 11:59] LABS: Creatinine Clr Calc Pharmacy 8.7; Estimated Glomerular Filt Rate 8
[2023-07-23 12:00] LABS: Vancomycin Random 22.6 mcg/mL (15-20)
--- NOTE | 2023-07-23 12:04 | PC.NURSE ---
patient off unit for dialysis
[2023-07-23 12:56] LABS: Adenovirus PCR Not Detected (Not Detect.); Bordetella parapertussis PCR Not Detected (Not Detect.); Bordetella pertussis PCR Not Detected (Not Detect.); Chlamydia pneumoniae PCR Not Detected (Not Detect.); Coronavirus 229E PCR Not Detected (Not Detect.); Coronavirus HKU1 PCR Not Detected (Not Detect.); Coronavirus NL63 PCR Not Detected (Not Detect.); Coronavirus OC43 PCR Not Detected (Not Detect.); Human metapneumovirus PCR Not Detected (Not Detect.); Influenza A PCR Not Detected (Not Detect.); Influenza B PCR Not Detected (Not Detect.); Mycoplasma pneumoniae PCR Not Detected (Not Detect.); Parainfluenza 1 PCR Not Detected (Not Detect.); Parainfluenza 2 PCR Not Detected (Not Detect.); Parainfluenza 3 PCR Not Detected (Not Detect.); Parainfluenza 4 PCR Not Detected (Not Detect.); RSV PCR Not Detected (Not Detect.); Rhino/Enterovirus PCR Not Detected (Not Detect.)
[2023-07-23 13:12] LABS: SARS-CoV-2 PCR Not Detected (Not Detect.)
[2023-07-23 14:21] LABS: Troponin-I High Sensitivity 24.6 ng/L (<3.5-17.0)
[2023-07-23 15:32] VITALS: BP 91/48; PULSE 88; RESP 16; TEMP 36.4; O2SAT 97
[2023-07-23] MEDS: Phytonadione (Vit K1) Oral 10 MG/ML AMPUL 5 MG PO (15:51)
[2023-07-23] MEDS: Octreotide Acetate 500 MCG in 0.9 % Sodium Chloride 500 ML 50.1 MCG IVCONT (15:52)
[2023-07-23] MEDS: Octreotide Acetate 100 MCG/ML AMPUL 50 MCG IVPUSH (15:52)
[2023-07-23] MEDS: Midodrine HCl 10 MG TABLET PO (17:38)
[2023-07-23 17:46] LABS: Appearance Urine Hazy; Color Urine BROWN; PH 7.5 (5.0-9.0); Specific Gravity - Urine 1.015 (1.005-1.025); UMIC TRIGGER UACC YES; Urine Blood Large (3+) (Negative)
[2023-07-23 17:51] LABS: Hyaline Casts Urine 0-2 /LPF (0-2); WBC Urine 0-5 /HPF (0-5)
[2023-07-23 17:53] LABS: Bacteria Urine 1+ (None Seen)
[2023-07-23 18:30] LABS: CDiff Gene PCR NEGATIVE (Negative)
--- NOTE | 2023-07-23 18:40 | MHC.EDTECH ---
Patient given dinner tray
[2023-07-23 19:14] VITALS: BP 83/47; PULSE 79; RESP 12; TEMP 36.7; O2SAT 98
--- NOTE | 2023-07-23 19:20 | PC.NURSE ---
Pt ca&ox4, no signs of distress. Pt resting in bed, watching tv. Pt denies pain at this time. Pt is afebrile. Plan of care ongoing.
--- NOTE | 2023-07-23 19:28 | PC.NURSE ---
This RN assumed pt care @ 1900. Plan of care ongoing.
[2023-07-23] MEDS: Metoprolol Tartrate 12.5 MG HALFTAB PO (21:27)
[2023-07-23] MEDS: rifAXIMin 550 MG TABLET PO (21:27)
--- NOTE | 2023-07-23 21:30 | PC.NURSE ---
Pt medicated per apr. Plan of care ongoing.
[2023-07-23 21:39] LABS: Vancomycin Random 16.4 mcg/mL (15-20)
--- NOTE | 2023-07-23 21:51 | HE.PHANOTE ---
Re: Sanchoo Patient has very poor renal function. Patient is therapeutic. Dose held. Next random trough 07/23 at 0600.
--- NOTE | 2023-07-24 00:25 | P.CNID_ITS ---
History of Present Illness Data of Consult Service Date: 07/23/23 Requesting physician: Hiral Carver Primary Care Provider: Unknown Physician HPI Reason for consult: sepsis She presents with fever and chills and has temperature to 101 as well as tachycardia. She has dialysis catheter in She has blood cultures 07/21 2/2 positive in pairs and short chains Review of Systems 2 Review of Systems: Yes all other systems are reviewed and are negative PMFSH Past Medical History Medical History Acute kidney injury Hepatic encephalopathy Alcoholic hepatitis Thrombocytopenia Portal venous hypertension Abdominal ascites Hyperlipidemia GERD (gastroesophageal reflux disease) Hypertension Cirrhosis Alcohol abuse Surgical History Surgical History Hx of section History of back surgery Hx of esophagogastroduodenoscopy Hx of colonoscopy Social History Social History Household Members: None Housing: Other Housing Other:: trailer Do you presently have visiting nurse or other home services: No Alcohol intake: former Patient Tobacco Use Status: Never used Tobacco Tobacco use type: Cigarette Cigarette Packs Per Day: 1 Cigarettes Per Day: 1 Years Smoked: 40 Smoked in Last 30 Days: No Second Hand Smoke Exposure: No Use of substances other than those prescribed or required for medical reasons: No Advance Directives: No Advance Directives Information Provided: No Nutrition Risks: No Nutritional Risk Patient : No service: No Meds Allergies Allergy/AdvReac Type Severity Reaction Status Date / Time codeine [CODEINE] Allergy Unknown NAUSEA Verified 07/22/23 21:24 Active Medications: Current Medications Bisacodyl (Bisacodyl 10 Mg Supp.Rect) 10 mg UT DAILY PRN PRN Reason: Constipation Folic Acid (Folic Acid 1 Mg Tablet) 1 mg PO DAILY JOSE ALFREDO Guaifenesin (Guaifenesin 200 Mg/10 Ml 10 Ml Liquid) 10 ml PO Q4H PRN PRN Reason: Cough Ceftriaxone Sodium 2 gm/ (Sodium Chloride) 50 mls @ 100 mls/hr IV Q24H JOSE ALFREDO Last Infusion: 07/23/23 10:39 Dose: Infused Vancomycin HCl 500 mg/ Sodium (Chloride) 110 mls @ 110 mls/hr IV ONCE ONE Stop: 07/23/23 13:06 Octreotide Acetate 500 mcg/ (Sodium Chloride) 501 mls @ 50.1 mls/hr IVCONT .Q10H JOSE ALFREDO Lactulose (Lactulose 20 Gm/30 Ml Solution) 20 gm PO DAILY [facility] Magnesium Hydroxide (Milk Of Magnesia 30 Ml Oral.Susp) 30 ml PO DAILY PRN PRN Reason: Constipation Magnesium Oxide (Magnesium Oxide 400 Mg Tablet) 400 mg PO DAILY [facility] Metoprolol Tartrate (Metoprolol Tartrate 12.5 Mg Halftab) 12.5 mg PO BID [facility]; Protocol Last Admin: 07/23/23 21:27 Dose: 12.5 mg Midodrine (Midodrine Hcl 10 Mg Tablet) 10 mg PO TIDWM [facility] Last Admin: 07/23/23 17:38 Dose: 10 mg Omeprazole (Omeprazole 40 Mg Capsule.Dr) 40 mg PO DAILY@0630 [facility] Ondansetron HCl (Ondansetron Hcl 4 Mg/2 Ml Vial) 4 mg IVPUSH Q8H PRN PRN Reason: Nausea and Vomiting Pharmacy Consult (Consult Rx Vancomycin Dosing) 1 each MISCELLANE DAILY PRN PRN Reason: Consult order Rifaximin (Rifaximin 550 Mg Tablet) 550 mg PO BID [facility] Last Admin: 07/23/23 21:27 Dose: 550 mg Sodium Biphosphate/Sodium Phosphate (Sodium Phosphate,[place]-Dibasic 133 Ml Enema) 118 ml UT DAILY PRN PRN Reason: Constipation Sodium Chloride (0.9 % Sodium Chloride Flush 3 Ml Syringe) 3 ml IVFLUSH QSHIFT [facility] Last Admin: 07/23/23 17:18 Dose: Not Given Thiamine HCl (Thiamine Hcl 100 Mg Tablet) 100 mg PO DAILY [facility] Home Medications ?Medication ?Instructions ?Recorded ?Confirmed ?Last Taken ?Type rifaximin 550 mg tablet 550 mg PO BID 07/04/23 07/23/23 07/03/23 History bisacodyl 10 mg rectal suppository 10 mg UT DAILY PRN Constipation 07/23/23 07/23/23 Unknown History (Dulcolax (bisacodyl)) magnesium hydroxide 400 mg/5 mL 30 ml PO DAILY PRN Constipation 07/23/23 07/23/23 Unknown History oral suspension (Milk of Magnesia) sodium phosphates 19 gram-7 118 ml UT DAILY PRN Constipation 07/23/23 07/23/23 Unknown History gram/118 mL enema (Fleet Enema) Physical Exam 2 Vital Signs: Vital Signs: Last Vital Signs Temp 98.0 F 07/23/23 19:14 Pulse 79 07/23/23 19:14 Resp 12 07/23/23 19:14 BP 83/47 L 07/23/23 19:14 Pulse Ox 98 07/23/23 19:14 O2 Del Method Room Air 07/23/23 19:14 BMI result Body Mass Index 24.6 Const: Other: yellow skin Yao HEENT: Head: Yes normal to inspection Face and sinus: Yes normal facial exam Mouth: Normal oral and palatal mucosa present Teeth and gingiva: d entition normal Eyes: General: appearance normal, both eyes and all related structures P upils: Equal, round and reactive pupils present Resp: Effort & Inspection: normal respiratory effort Cardio: Rate: regular rate and Other (2/6 SULAIMAN) Rhythm: regular rhythm GI: Palpation (GI): Soft to palpation and nontender : General: Yes no CVA tenderness Back/Spine/Pelvis: Back: no CVA tenderness Skin: General skin exam: no rashes or lesions noted Neuro: General: moves all extremities Cranial nerves: Yes Equal, round and reactive pupils present Extrem: General: Yes normal to inspection Psych: Appearance: grossly normal Results Labs 07/22/23 21:48 07/23/23 11:38 Labs: BMP 07/23/23 11:38 Creatinine 5.15 H* Urine 07/23/23 Range/Units 17:36 Urine Color BROWN Urine Appearance Hazy Urine pH 7.5 (5.0-9.0) Ur Specific [place] 1.015 (1.005-1.025) Urine Protein See Note (Neg-Trace) mg/dL Urine Glucose (UA) See Note (Negative) mg/dL Microbiology Microbiology Results: Microbiology 07/22/23 23:22 Ascites Fluid Gram Stain - Final 07/22/23 21:47 Blood - Venous Blood Culture - Preliminary Prelim: GPC Gram Stain only 07/22/23 22:04 Blood - Venous Blood Culture - Preliminary Prelim: GPC Gram Stain only Assessment and Plan (1) Gram-positive bacteremia: Status: Acute (2) Severe sepsis: Status: Acute Plan There is possible staph or strep with gram positive cocci. Would await cultures and Vancomycin dose 750 mg before dialysis three times a week.
--- NOTE | 2023-07-24 02:38 | PC.NURSE ---
This RN spoke with Richard at pharmacy regarding the 0145 scheduled Octreotide Acetate 500 mcg. Mar not recognizing the active order and is requesting this RN over ride the med. Per Richard the previous pharmacist did not changed the RX # which is causing the computer to recognize the old order that was discontinued and not the new active order. Per Richard med will need to be overridden.
[2023-07-24] MEDS: Octreotide Acetate 500 MCG in 0.9 % Sodium Chloride 500 ML 50.1 MCG IVCONT ×2 (02:42→11:08)
--- NOTE | 2023-07-24 02:48 | PC.NURSE ---
Pt medicated per apr. Plan of care ongoing.
[2023-07-24 06:04] VITALS: BP 80/46; PULSE 57; RESP 16; TEMP 36.7; O2SAT 96
[2023-07-24] MEDS: Omeprazole 40 MG CAPSULE.DR PO (06:47)
--- NOTE | 2023-07-24 06:49 | PC.NURSE ---
Pt medicated per apr. Plan of care ongoing.
[2023-07-24 06:51] LABS: MANUAL DIFF FLAG NO
[2023-07-24 07:06] LABS: Basophils Absolute Auto 0.1 X10*3/uL (0.0-0.2); Basophils Percent Auto 1.4 % (0-2); Eosinophils Absolute Auto 0.1 X10*3/uL (0.0-0.4); Eosinophils Percent Auto 1.7 % (0-4); Hematocrit 28.1 % (37.0-47.0); Imm Gran Abs Auto 0.06 X10*3/uL (0.00-0.03); Imm Gran Pct Auto 0.7 % (0.0-0.4); Lymphocytes Absolute Auto 1.2 X10*3/uL (1.2-4.9); Lymphocytes Percent Auto 13.8 % (20-40); Mean Corpuscular HGB Conc 35.6 g/dl (31.0-35.0); Mean Corpuscular Hemoglobin 34.2 pg (27.0-33.0); Mean Corpuscular Volume 96.2 fL (80.0-98.0); Mean Platelet Volume 13.3 fL (9.4-12.3); Monocytes Absolute Auto 1.1 X10*3/uL (0.1-1.2); Monocytes Percent Auto 13.3 % (2-11); Neutrophils Absolute Auto 5.9 x10*3/uL (2.0-8.3); Neutrophils Percent Auto 69.1 % (45-73); Platelet Count 48 X10*3/uL (160-400); Red Blood Count 2.92 X10*6/uL (4.20-5.50); Red Cell Distribution Width 20.9 % (11.0-16.0); White Blood Count 8.5 X10*3/uL (4.8-10.8)
[2023-07-24 07:10] LABS: Vancomycin Random 16.1 mcg/mL (15-20)
[2023-07-24 07:17] LABS: Alanine Aminotransferase 11 U/L (0-31); Alkaline Phosphatase 160 U/L (39-117); Anion Gap 16 (12-20); Aspartate Amino Transferase 44 U/L (5-31); Blood Urea Nitrogen 15 mg/dL (9-16); Calcium 8.4 mg/dL (8.4-10.2); Carbon Dioxide 18 mmol/L (22-29); Chloride 102 mmol/L (96-108); Creatinine Clr Calc Pharmacy 12.1; Estimated Glomerular Filt Rate 12; Glucose Random 116 mg/dL (60-115); Potassium 3.4 mmol/L (3.3-5.1); Sodium 133 mmol/L (135-145); Total Protein 5.1 g/dL (6.5-8.0)
[2023-07-24 07:22] LABS: Bilirubin Total 29.9 mg/dL (0.0-1.0)
[2023-07-24 07:27] LABS: Bilirubin Direct 20.7 mg/dL (0.0-0.5)
[2023-07-24 07:53] VITALS: BP 98/55; PULSE 60; RESP 14; TEMP 36.6; O2SAT 98
--- NOTE | 2023-07-24 07:54 | P.PNIM_ITS ---
Subjective Subjective Date of Service: 07/24/23 Interval History: Seen in follow up for gram positive bacteremia Interval history: Inital and repeat cultures with GPC and enterococcus/strep await final sensitivities. Has remained afebile. Still oliguric. UC now positive with enterococcus/strep. Tearful, somewhat confused as to why she is here. No abd pain, nausea, vomiting, sob. Blood pressures remain soft, but has been afebrile x 24 hours. No recurrent bloody bm Review of Systems Review of Systems: Yes all other systems are reviewed and are negative Physical Exam 2 Vital Signs: Vital Signs: Last Vital Signs Temp 97.8 F 07/24/23 07:53 Pulse 60 07/24/23 07:53 Resp 14 07/24/23 07:53 BP 98/55 L 07/24/23 07:53 Pulse Ox 98 07/24/23 07:53 O2 Del Method Room Air 07/24/23 07:53 BMI result Body Mass Index 24.6 Constitutional - Awake and Alert, No apparent distress Eyes - PERRLA, EOMI Cardiovascular - S1S2, RRR, No edema Respiratory - Normal lung expansion, Normal respiratory effort, No respiratory distress, CTA bilaterally Gastrointestinal - soft, distended with +fluid wave, ntt. +BS; No rebound or guarding. No asterixis Extremities - no calf tenderness bilaterally, no swelling Skin - Warm/Dry. Jaundice Neurological - Alert & oriented x3, but confused as to why she is here Psychological - tearful Objective Data Active Medications Bisacodyl (Bisacodyl 10 Mg Supp.Rect) 10 mg MT DAILY PRN PRN Reason: Constipation Folic Acid (Folic Acid 1 Mg Tablet) 1 mg PO DAILY [facility] Guaifenesin (Guaifenesin 200 Mg/10 Ml 10 Ml Liquid) 10 ml PO Q4H PRN PRN Reason: Cough Ceftriaxone Sodium 2 gm/ (Sodium Chloride) 50 mls @ 100 mls/hr IV Q24H [facility] Last Infusion: 07/23/23 10:39 Dose: Infused Documented By: TIFFANI Vancomycin HCl 500 mg/ Sodium (Chloride) 110 mls @ 110 mls/hr IV ONCE ONE Stop: 07/23/23 13:06 Octreotide Acetate 500 mcg/ (Sodium Chloride) 501 mls @ 50.1 mls/hr IVCONT .Q10H [facility] Last Admin: 07/24/23 02:42 Dose: 50 mcg/hr, 50.1 mls/hr Documented By: JAY Lactulose (Lactulose 20 Gm/30 Ml Solution) 20 gm PO DAILY [facility] Magnesium Hydroxide (Milk Of Magnesia 30 Ml Oral.Susp) 30 ml PO DAILY PRN PRN Reason: Constipation Magnesium Oxide (Magnesium Oxide 400 Mg Tablet) 400 mg PO DAILY [facility] Metoprolol Tartrate (Metoprolol Tartrate 12.5 Mg Halftab) 12.5 mg PO BID [facility]; Protocol Last Admin: 07/23/23 21:27 Dose: 12.5 mg Documented By: JAY Midodrine (Midodrine Hcl 10 Mg Tablet) 10 mg PO TIDWM [facility] Last Admin: 07/23/23 17:38 Dose: 10 mg Documented By: TIFFANI Omeprazole (Omeprazole 40 Mg Capsule.Dr) 40 mg PO DAILY@0630 [facility] Last Admin: 07/24/23 06:47 Dose: 40 mg Documented By: JAY Ondansetron HCl (Ondansetron Hcl 4 Mg/2 Ml Vial) 4 mg IVPUSH Q8H PRN PRN Reason: Nausea and Vomiting Pharmacy Consult (Consult Rx Vancomycin Dosing) 1 each MISCELLANE DAILY PRN PRN Reason: Consult order Rifaximin (Rifaximin 550 Mg Tablet) 550 mg PO BID [facility] Last Admin: 07/23/23 21:27 Dose: 550 mg Documented By: JAY Sodium Biphosphate/Sodium Phosphate (Sodium Phosphate,[place]-Dibasic 133 Ml Enema) 118 ml MT DAILY PRN PRN Reason: Constipation Sodium Chloride (0.9 % Sodium Chloride Flush 3 Ml Syringe) 3 ml IVFLUSH QSHIFT [facility] Last Admin: 07/24/23 00:26 Dose: Not Given Documented By: JAY Non-Admin Reason: IV Running Thiamine HCl (Thiamine Hcl 100 Mg Tablet) 100 mg PO DAILY [facility] Labs 07/24/23 06:32 07/24/23 06:32 Labs: Laboratory Results - last 24 hr 07/23/23 07/23/23 07/23/23 08:23 11:38 13:41 MCV MCH MCHC RDW Plt Count MPV Immature Gran % (Auto) Neut % (Auto) Lymph % (Auto) Hartley % (Auto) Eos % (Auto) Baso % (Auto) Lymph # (Auto) Hartley # (Auto) Eos # (Auto) Baso # (Auto) Abs Immat Gran (auto) Absolute Neuts (auto) Absolute Nucleated RBC Nucleated RBC % (auto) Anion Gap Estim Creat Clear Calc 8.7 Estimated GFR 8 Random Glucose Calcium Total Bilirubin Direct Bilirubin AST ALT Alkaline Phosphatase Troponin I High Sens 24.6 H Total Protein Albumin Procalcitonin 1.20 Urine Color Urine Appearance Urine pH Ur Specific [place] Urine Protein Urine Glucose (UA) Urine Ketones Urine Blood Urine Nitrite Ur Leukocyte Esterase Urine RBC Urine WBC Ur Squamous Epith Cells Urine Bacteria Hyaline Casts Random Vancomycin 22.6 H Respiratory Panel [place] See Note Adenovirus (Rapid PCR) Not Detected B.pert (TEM-PCR) Not Detected B.parapertussis DNA PCR Not Detected C. pneumoniae DNA (PCR) Not Detected C. difficile Tox B Gene Coronavirus OC43 (PCR) Not Detected Coronavirus HKU1 (PCR) Not Detected Coronavirus 229E (PCR) Not Detected Coronavirus NL63 (PCR) Not Detected Human Metapneumovir PCR Not Detected Influenza A (RT-PCR) Not Detected Influenza B (RT-PCR) Not Detected M. pneumoniae (PCR) Not Detected Parainfluenza 1 (PCR) Not Detected Parainfluenza 2 (PCR) Not Detected Parainfluenza 3 (PCR) Not Detected Parainfluenza 4 (PCR) Not Detected RSV (PCR) Not Detected Entero/Rhino (PCR) Not Detected SARS-CoV-2 RNA (RT-PCR) Not Detected 07/23/23 07/23/23 07/23/23 17:23 17:36 21:01 MCV MCH MCHC RDW Plt Count MPV Immature Gran % (Auto) Neut % (Auto) Lymph % (Auto) Hart[place] % (Auto) Eos % (Auto) Baso % (Auto) Lymph # (Auto) Hartley # (Auto) Eos # (Auto) Baso # (Auto) Abs Immat Gran (auto) Absolute Neuts (auto) Absolute Nucleated RBC Nucleated RBC % (auto) Anion Gap Estim Creat Clear Calc Estimated GFR Random Glucose Calcium Total Bilirubin Direct Bilirubin AST ALT Alkaline Phosphatase Troponin I High Sens Total Protein Albumin Procalcitonin Urine Color BROWN Urine Appearance Hazy Urine pH 7.5 Ur Specific [place] 1.015 Urine Protein See Note Urine Glucose (UA) See Note Urine Ketones See Note Urine Blood Large (3+) H Urine Nitrite See Note Ur Leukocyte Esterase See Note Urine RBC 6-10 H Urine WBC 0-5 Ur Squamous Epith Cells 3-5 Urine Bacteria 1+ Hyaline Casts 0-2 Random Vancomycin 16.4 Respiratory Panel [place] Adenovirus (Rapid PCR) B.pert (TEM-PCR) B.parapertussis DNA PCR C. pneumoniae DNA (PCR) C. difficile Tox B Gene NEGATIVE Coronavirus OC43 (PCR) Coronavirus HKU1 (PCR) Coronavirus 229E (PCR) Coronavirus NL63 (PCR) Human Metapneumovir PCR Influenza A (RT-PCR) Influenza B (RT-PCR) M. pneumoniae (PCR) Parainfluenza 1 (PCR) Parainfluenza 2 (PCR) Parainfluenza 3 (PCR) Parainfluenza 4 (PCR) RSV (PCR) Entero/Rhino (PCR) SARS-CoV-2 RNA (RT-PCR) 07/24/23 06:32 MCV 96.2 MCH 34.2 H MCHC 35.6 H RDW 20.9 H Plt Count 48 L MPV 13.3 H Immature Gran % (Auto) 0.7 H Neut % (Auto) 69.1 Lymph % (Auto) 13.8 L [place]ley % (Auto) 13.3 H Eos % (Auto) 1.7 Baso % (Auto) 1.4 Lymph # (Auto) 1.2 Hartley # (Auto) 1.1 Eos # (Auto) 0.1 Baso # (Auto) 0.1 Abs Immat Gran (auto) 0.06 H Absolute Neuts (auto) 5.9 Absolute Nucleated RBC 0.000 Nucleated RBC % (auto) 0.0 Anion Gap 16 Estim Creat Clear Calc 12.1 Estimated GFR 12 Random Glucose 116 H Calcium 8.4 D Total Bilirubin 29.9 H Direct Bilirubin 20.7 H AST 44 H ALT 11 Alkaline Phosphatase 160 H Troponin I High Sens Total Protein 5.1 L Albumin 3.0 L Procalcitonin Urine Color Urine Appearance Urine pH Ur Specific [place] Urine Protein Urine Glucose (UA) Urine Ketones Urine Blood Urine Nitrite Ur Leukocyte Esterase Urine RBC Urine WBC Ur Squamous Epith Cells Urine Bacteria Hyaline Casts Random Vancomycin 16.1 Respiratory Panel [place] Adenovirus (Rapid PCR) B.pert (TEM-PCR) B.parapertussis DNA PCR C. pneumoniae DNA (PCR) C. difficile Tox B Gene Coronavirus OC43 (PCR) Coronavirus HKU1 (PCR) Coronavirus 229E (PCR) Coronavirus NL63 (PCR) Human Metapneumovir PCR Influenza A (RT-PCR) Influenza B (RT-PCR) M. pneumoniae (PCR) Parainfluenza 1 (PCR) Parainfluenza 2 (PCR) Parainfluenza 3 (PCR) Parainfluenza 4 (PCR) RSV (PCR) Entero/Rhino (PCR) SARS-CoV-2 RNA (RT-PCR) Microbiology Microbiology Results: Microbiology 07/22/23 23:22 Gram Stain - Final Ascites Fluid 07/22/23 21:47 Blood Culture - Preliminary Blood - Venous Prelim: GPC Gram Stain only 07/22/23 22:04 Blood Culture - Preliminary Blood - Venous Prelim: GPC Gram Stain only Assessment and Plan (1) Gram-positive bacteremia: Status: Acute (2) Severe sepsis: Status: Acute (3) Hypotension: Status: Acute (4) UTI (urinary tract infection): Status: Acute Plan 3-year-old female with history of alcoholic cirrhosis complicated by portal vein hypertension and ascites, hepatic encephalopathy on lactulose and rifaximin, alcohol use disorder, gout, hypertension, GERD, HRS on HD admitted for further management of enterococcus/strep bacteremia/UTI with question of possible line sepsis complicated by oliguria and hypotension 63-year-old female with history of alcoholic cirrhosis complicated by portal vein hypertension and ascites, hepatic encephalopathy on lactulose and rifaximin, alcohol use disorder, gout, hypertension, GERD admitted for further management of suspected strep bacteremia with possible line sepsis and pneumonia #Enterococcus/strep bacteremia -susceptibilities pending -Most likely urinary source given positive UC, however cannot exclude line sepsis. Await final cultures -IV vanco until final cultures and IV ctx 2g (initiated 07/22) -ID consult -nephrology consult to evaluate line -echo -Repeat cultures pending -follow cultures #Enterococcus/strep UTI -abx as above -follow cbc/cultures #Possible line sepsis -IV vanco and ctx as above -ID and nephro consult #?LLL pneumonia -CT chest shows possible LLL nonsolid groundglass opacities. symptomatic with cough and febrile on arrival -IV vanco and ctx as above -strep pneumo antigen, Legionella antigen, sputum culture pending -guaifenesin p.r.n. -RPP neagtive -Follow CBC/Cultures #Severe sepsis- due to above -met severe sepsis at 2147 07/21 with lactic acid 2.9, resolved with IVF. Febrile to 101.8 at facility and tachycardic. No fevers since admission. Resolved by admission. 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 HD RN to evaluate line and need for replacement #Decompensated hepatic cirrhosis complicated by ascites, portal vein hypertension. She is NOT a candidate for transplant -Cholestatic phase now with chronic T.Bili evevation in the 30s. INR 2.0, vitamin K as abvoe. No steroids given recent/current GIB -bedside dx paracentesis negative for SBP. Consider IR drainage tuesday if symtpomatic. HD as scheduled -Resume lactulose. continue rifaximin -GI consult- per gi nothing to do at this time -hold on further paracentesis at this time as no dyspnea, abd softly distended. Continue hd #Chronic normocytic anemia in setting of cirrhosis -no further bleeding episodes -h/h stable, above transfusion threshold -continue monitoring # chronic thrombocytopenia -due to cirrhosis DVT prophylaxis- SCPs Full code Pt requires inpt stay at least 2 midnights for management of severe sepsis due to possible line infection vs pneumonia with gram positive bacteremia requiring iv abx, expert consultation, and close monitoring of blood cultures Quality Stroke Does the patient have a stroke diagnosis?: No VTE Prior VTE?: No VTE Risk Level:: Medical - moderate - high VTE Device Contraindication: N/A - Device Ordered VTE Drug Contraindication: Treatment Not Indicated
[2023-07-24] MEDS: 0.9 % Sodium Chloride Flush 3 ML SYRINGE IVFLUSH (07:59)
[2023-07-24] MEDS: cefTRIAXone sodium 2 GM in 0.9 % Sodium Chloride 50 ML IV (07:59)
--- NOTE | 2023-07-24 07:59 | PM.GICN ---
History of Present Illness Data of Consult Service Date: 07/24/23 Requesting physician: Hiral Carver Primary Care Provider: Unknown Physician HPI Reason for consult: cirrhosis, rectal bleeding 63-year-old female with history of alcoholic cirrhosis complicated by portal vein hypertension and ascites, hepatic encephalopathy on lactulose and rifaximin, alcohol use disorder, gout, hypertension, GERD who I am seeing for assessment for rectal bleeding and cirrhosis Pt initially presented with fevers of 101.8 and non productive cough for 1 week. Of note pt was recent d/c'ed from [facility] after prolonged stay for acute decompensated cirrhosis and HRS started on HD. Blood culture pos for GPC, concern for line infection. Some blood on and off has been noted by the patient with stools. I looked at the commode seemed more dark, or maroon possibly. Labs: Leukocytosis of 12.8. Stable, chronic normocytic anemia with H/H 9.5/25.8%, chronic thrombocytopenia with PLT 57. Creatinine 5.15, BUN 21. Sodium 133, chloride 94, electrolytes otherwise normal. Lactic acid on admission 2.9 --> 2.8--> 2.0. Total bilirubin 33.9, direct bilirubin 24.4, AST 53, ALT 8. Initial troponin 25. CRP 8.30,. PT 24.9, INR 2.0. Diagnostic paracentesis performed in the ED, not indicative of SBP. RPP negative. IMAGING: CT abdomen/pelvis: cirrhotic liver with large volume ascites and soft tissue anasarca. There is also mild right colonic wall thickening likely secondary to portal colopathy. Chest CT negative for lung mass or suspicious spiculated nodules. However there is a non solid patchy ground-glass opacity in the left lower lobe measuring 1.4 x 1.2 cm possibly representing patchy infiltrates versus ground-glass nodule. There is also noted mild interstitial lung disease, incompletely healed right lateral rib fractures as well as other chronic findings. Review of Systems Review of Systems: Constitutional : fatigue ENT/Mouth : No sore throat, No Rhinorrhea Eyes: No Swelling, No Redness Cardiovascular : No Chest Pain, No SOB, No Edema Respiratory : No Cough, No Sputum, No Wheezing Gastrointestinal : see HPI Genitourinary : NO Dysuria, No Urinary Frequency, No Hematuria, No Urgency Musculoskeletal : + joint pain, No Myalgias, No Joint Swelling Skin : dry, jaundice Neuro : +Weakness, No Numbness, No Dizziness, No Headache Psych : No Anxiety/Panic, No Depression Heme/Lymph: +Bruising, No Lymphadenopathy Endocrine : No Polyuria, No Polydipsia All other systems reviewed and are negative. [facility] Past Medical History Medical History Acute kidney injury Hepatic encephalopathy Alcoholic hepatitis Thrombocytopenia Portal venous hypertension Abdominal ascites Hyperlipidemia GERD (gastroesophageal reflux disease) Hypertension Cirrhosis Alcohol abuse Family History Pertinent family history: no fh of liver disease Surgical History Surgical History Hx of section History of back surgery Hx of esophagogastroduodenoscopy Hx of colonoscopy Social History Social History Household Members: None Housing: [facility] Housing Other:: trailer Do you presently have visiting nurse or other home services: No Alcohol intake: former Patient Tobacco Use Status: Former Tobacco user Quit Date: 06/05/23 Tobacco use type: Cigarette Cigarette Packs Per Day: 1 Cigarettes Per Day: 1 Years Smoked: 40 e-Cigarette/Vaping Use: Never Used Second Hand Smoke Exposure: No service: No Meds Allergies Allergy/AdvReac Type Severity Reaction Status Date / Time codeine [CODEINE] Allergy Unknown NAUSEA Verified 07/22/23 21:24 Active Medications: Current Medications Bisacodyl (Bisacodyl 10 Mg Supp.Rect) 10 mg AR DAILY PRN PRN Reason: Constipation Folic Acid (Folic Acid 1 Mg Tablet) 1 mg PO DAILY [facility] Guaifenesin (Guaifenesin 200 Mg/10 Ml 10 Ml Liquid) 10 ml PO Q4H PRN PRN Reason: Cough Ceftriaxone Sodium 2 gm/ (Sodium Chloride) 50 mls @ 100 mls/hr IV Q24H [facility] Last Infusion: 07/23/23 10:39 Dose: Infused Vancomycin HCl 500 mg/ Sodium (Chloride) 110 mls @ 110 mls/hr IV ONCE ONE Stop: 07/23/23 13:06 Octreotide Acetate 500 mcg/ (Sodium Chloride) 501 mls @ 50.1 mls/hr IVCONT .Q10H [facility] Last Admin: 07/24/23 02:42 Dose: 50 mcg/hr, 50.1 mls/hr Lactulose (Lactulose 20 Gm/30 Ml Solution) 20 gm PO DAILY [facility] Magnesium Hydroxide (Milk Of Magnesia 30 Ml Oral.Susp) 30 ml PO DAILY PRN PRN Reason: Constipation Magnesium Oxide (Magnesium Oxide 400 Mg Tablet) 400 mg PO DAILY [facility] Metoprolol Tartrate (Metoprolol Tartrate 12.5 Mg Halftab) 12.5 mg PO BID [facility]; Protocol Last Admin: 07/23/23 21:27 Dose: 12.5 mg Midodrine (Midodrine Hcl 10 Mg Tablet) 10 mg PO TIDWM [facility] Last Admin: 07/23/23 17:38 Dose: 10 mg Omeprazole (Omeprazole 40 Mg Capsule.Dr) 40 mg PO DAILY@0630 [facility] Last Admin: 07/24/23 06:47 Dose: 40 mg Ondansetron HCl (Ondansetron Hcl 4 Mg/2 Ml Vial) 4 mg IVPUSH Q8H PRN PRN Reason: Nausea and Vomiting Pharmacy Consult (Consult Rx Vancomycin Dosing) 1 each MISCELLANE DAILY PRN PRN Reason: Consult order Rifaximin (Rifaximin 550 Mg Tablet) 550 mg PO BID [facility] Last Admin: 07/23/23 21:27 Dose: 550 mg Sodium Biphosphate/Sodium Phosphate (Sodium Phosphate,[place]-Dibasic 133 Ml Enema) 118 ml AR DAILY PRN PRN Reason: Constipation Sodium Chloride (0.9 % Sodium Chloride Flush 3 Ml Syringe) 3 ml IVFLUSH QSHIFT [facility] Last Admin: 07/24/23 00:26 Dose: Not Given Thiamine HCl (Thiamine Hcl 100 Mg Tablet) 100 mg PO DAILY [facility] Home Medications ?Medication ?Instructions ?Recorded ?Confirmed ?Last Taken ?Type rifaximin 550 mg tablet 550 mg PO BID 07/04/23 07/23/23 07/03/23 History bisacodyl 10 mg rectal suppository 10 mg AR DAILY PRN Constipation 07/23/23 07/23/23 Unknown History (Dulcolax (bisacodyl)) magnesium hydroxide 400 mg/5 mL 30 ml PO DAILY PRN Constipation 07/23/23 07/23/23 Unknown History oral suspension (Milk of Magnesia) sodium phosphates 19 gram-7 118 ml AR DAILY PRN Constipation 07/23/23 07/23/23 Unknown History gram/118 mL enema (Fleet Enema) Physical Exam Vital Signs: Vital Signs: Last Vital Signs Temp 97.8 F 07/24/23 07:53 Pulse 60 07/24/23 07:53 Resp 14 07/24/23 07:53 BP 98/55 L 07/24/23 07:53 Pulse Ox 98 07/24/23 07:53 O2 Del Method Room Air 07/24/23 07:53 BMI result Body Mass Index 24.6 EXAM: GENERAL: The patient weak, frail, jaundiced VITAL SIGNS:see workflow HEENT: +icteric sclerae, PERRLA, EOMI. Oropharynx clear. Moist mucous membranes. Conjunctivae appear well perfused. No thyroid mass. CHEST: Chest wall is nontender. HEART: Regular rate and rhythm without murmurs. LUNGS: Clear to auscultation bilaterally. ABDOMEN: Soft, positive bowel sounds, nontender, no organomegaly.no flank tenderness, + ascites SKIN: No rash, no excessive bruising, petechiae, or purpura. NEUROLOGIC: Cranial nerves II-XII intact without motor/sensory deficit. Psych: normal affect Results Labs 07/25/23 05:24 07/26/23 05:42 Labs: Short CBC 07/24/23 Range/Units 06:32 WBC 8.5 (4.8-10.8) X10*3/uL Hgb 10.0 L (12.0-16.0) g/dl Hct 28.1 L (37.0-47.0) % Plt Count 48 L (160-400) X10*3/uL BMP 07/23/23 07/24/23 11:38 06:32 Sodium 133 L Potassium 3.4 Chloride 102 Carbon Dioxide 18 L BUN 15 Creatinine 5.15 H* 3.72 H Calcium 8.4 D Liver Function 07/24/23 Range/Units 06:32 Total Bilirubin 29.9 H (0.0-1.0) mg/dL Direct Bilirubin 20.7 H (0.0-0.5) mg/dL AST 44 H (5-31) U/L ALT 11 (0-31) U/L Alkaline Phosphatase 160 H (39-117) U/L Albumin 3.0 L (3.5-5.0) g/dL Urine 07/23/23 Range/Units 17:36 Urine Color BROWN Urine Appearance Hazy Urine pH 7.5 (5.0-9.0) Ur Specific [place] 1.015 (1.005-1.025) Urine Protein See Note (Neg-Trace) mg/dL Urine Glucose (UA) See Note (Negative) mg/dL Microbiology Microbiology Results: Microbiology 07/22/23 23:22 Ascites Fluid Gram Stain - Final 07/22/23 21:47 Blood - Venous Blood Culture - Preliminary Prelim: GPC Gram Stain only 07/22/23 22:04 Blood - Venous Blood Culture - Preliminary Prelim: GPC Gram Stain only Assessment and Plan (1) Gram-positive bacteremia: Status: Acute (2) Cirrhosis: Status: Acute Plan 1/ Line infection with background decompensated liver cirrhosis, prognosis seems guarded--ascitic fluid neg for sbp 2/ rectal bleeding, maybe rectal varices, hemorrhoidal, mucosal bleeding given low plts PLAN: 1/ treat with abx as doing, 2/ therapeutic paracentesis as needed, with albumin coverage 3/ high protein diet to prvent worsening sarcopenia, multi vitamins 4/ high risk for encephalopathy can use lactulose aiming for 2-3 soft stools per day 5/ if ongoing rectal bleeding inpsite of vit K and plts then can consider limited sigmoidoscopy with possible EGD Procedures Date of Service Date of Service: 07/26/23
[2023-07-24] MEDS: Lactulose 20 GM/30 ML SOLUTION PO (08:00)
[2023-07-24] MEDS: Midodrine HCl 10 MG TABLET PO ×2 (08:00→13:23)
[2023-07-24] MEDS: Magnesium Oxide 400 MG TABLET PO (08:00)
[2023-07-24] MEDS: rifAXIMin 550 MG TABLET PO ×2 (08:00→21:16)
[2023-07-24] MEDS: Thiamine HCL 100 MG TABLET PO (08:00)
[2023-07-24] MEDS: Folic Acid 1 MG TABLET PO (08:00)
--- NOTE | 2023-07-24 08:11 | PC.NURSE ---
alert and oriented, respirations even and unlabored. patient medicated per the MAR, offering no complaints at this time. kaba catheter remains w/in place w/ no output at this time. call padilla within reach, watching TV in room.
[2023-07-24 08:56] LABS: MRSA Nasal PCR NEGATIVE (Negative); SA Nasal PCR NEGATIVE (Negative)
[2023-07-24 09:10] LABS: Lactic Acid 1.7 mmol/L (0.5-2.0)
--- NOTE | 2023-07-24 09:23 | PC.NURSE ---
patient cleaned in bed of small bowel movement. requesting pain medication, patient stating she is having back pain.
[2023-07-24] MEDS: HYDROmorphone HCl 0.5 MG/0.5 ML SYRINGE 0.25 MG IVPUSH ×2 (10:37→15:14)
[2023-07-24] MEDS: Lidocaine 4 % Patch ADH..PATCH 1 PATCH TRANSDERMA (10:37)
--- NOTE | 2023-07-24 11:21 | MHC.CM.PN ---
PT REPORTS SHE LIVES ALONE AND IS INDEPENDENT WITH ARE SHE USUALLY HAS NO SERVICES OR DME PT WAS DISCHARGED FROM [facility] TO [facility] FOR STR AND HD ON 07/21/23 SHE STATES SHE WOULD PREFER TO DC HOME, HOWEVER IS AWARE THIS MAY NOT BE A SAFE OPTION HCP ON FILE PCP: ZANDER RUFFIN IMM DELIVERED DCP: TBD RETURN TO STR AT [facility] VS HOME TRANSPORT TBD
[2023-07-24 11:57] LABS: Adenovirus F 40/41 Not Detected (Not Detect.); Astrovirus Not Detected (Not Detect.); Campylobacter Not Detected (Not Detect.); Cryptosporidium Not Detected (Not Detect.); Cyclospora cayetanensis Not Detected (Not Detect.); E. coli EAEC Not Detected (Not Detect.); E. coli EPEC Not Detected (Not Detect.); E. coli ETEC Not Detected (Not Detect.); E. coli STEC Not Detected (Not Detect.); Entamoeba histolytica Not Detected (Not Detect.); Giardia lamblia Not Detected (Not Detect.); Norovirus GI/GII Not Detected (Not Detect.); Plesiomonas shigelloides Not Detected (Not Detect.); Rotavirus A Not Detected (Not Detect.); Salmonella Not Detected (Not Detect.); Sapovirus Not Detected (Not Detect.); Shigella sp./EIEC Not Detected (Not Detect.); Vibrio Not Detected (Not Detect.); Vibrio Cholerae Not Detected (Not Detect.); Yersinia enterocolitica Not Detected (Not Detect.)
[2023-07-24 12:09] VITALS: BP 91/51; PULSE 61; RESP 18; TEMP 36.2; O2SAT 97
[2023-07-24] MEDS: Albumin Human 25 % 50 ML 100 ML IV ×4 (15:14→17:30)
--- NOTE | 2023-07-24 15:19 | PC.NURSE ---
patient upset with how long she has been in emergency department w/out bed assignment. encouraged to stay in department for care, patient agreeable. provided with eye mask and ear plugs. medicated per the MAR, albumin infusing.
[2023-07-24 15:42] VITALS: BP 96/47; PULSE 67; RESP 18; TEMP 36.6; O2SAT 96
[2023-07-24 18:38] VITALS: BP 101/61; PULSE 63; RESP 12; TEMP 36.2; O2SAT 95
[2023-07-24] MEDS: Midodrine HCl 5 MG TABLET 15 MG PO (18:38)
--- NOTE | 2023-07-24 19:06 | PC.NURSE ---
Pt. got on the floor after 6pm, reposition her and settle her in the room, vitals and belonging list done. Admission assessment attempted but pt. was talking on the phone, by the time she finished, pt. seemed distracted to answer questions appropriately. Oncoming Nurse updated.
[2023-07-24 19:53] VITALS: BP 119/57; PULSE 68; RESP 18; TEMP 36.1
[2023-07-24] MEDS: Metoprolol Tartrate 12.5 MG HALFTAB PO (21:16)
[2023-07-24 21:42] LABS: Vancomycin Random 14.3 mcg/mL (15-20)
--- NOTE | 2023-07-24 21:48 | HE.PHANOTE ---
Re: Vanco Patient has very poor renal function. Trough returned at 14.3. Dose held. Next random trough 07/24 at 0600.
[2023-07-25] MEDS: Octreotide Acetate 500 MCG in 0.9 % Sodium Chloride 500 ML 50.1 MCG IVCONT ×3 (00:47→18:17)
[2023-07-25 02:10] VITALS: BMI 25.6
[2023-07-25 03:33] VITALS: BP 109/60; PULSE 71; RESP 20; TEMP 36.2; O2SAT 95
[2023-07-25 05:32] LABS: MANUAL DIFF FLAG NO
[2023-07-25 05:43] LABS: Basophils Absolute Auto 0.1 X10*3/uL (0.0-0.2); Basophils Percent Auto 1.8 % (0-2); Eosinophils Absolute Auto 0.2 X10*3/uL (0.0-0.4); Eosinophils Percent Auto 3.4 % (0-4); Hematocrit 25.2 % (37.0-47.0); Imm Gran Abs Auto 0.04 X10*3/uL (0.00-0.03); Imm Gran Pct Auto 0.6 % (0.0-0.4); Lymphocytes Absolute Auto 1.6 X10*3/uL (1.2-4.9); Lymphocytes Percent Auto 24.7 % (20-40); Mean Corpuscular HGB Conc 35.7 g/dl (31.0-35.0); Mean Corpuscular Hemoglobin 33.6 pg (27.0-33.0); Mean Platelet Volume 12.4 fL (9.4-12.3); Monocytes Absolute Auto 1.2 X10*3/uL (0.1-1.2); Monocytes Percent Auto 17.6 % (2-11); Neutrophils Absolute Auto 3.4 x10*3/uL (2.0-8.3); Neutrophils Percent Auto 51.9 % (45-73); Platelet Count 59 X10*3/uL (160-400); Red Blood Count 2.68 X10*6/uL (4.20-5.50); Red Cell Distribution Width 20.1 % (11.0-16.0); White Blood Count 6.5 X10*3/uL (4.8-10.8)
[2023-07-25 05:50] LABS: INTERNATIONAL NORM RATIO 1.9 (0.9-1.1); Prothrombin Time 23.4 SEC (11.1-13.3)
[2023-07-25 05:59] LABS: Vancomycin Random 14.9 mcg/mL (15-20)
[2023-07-25 06:12] LABS: Anion Gap 17 (12-20)
[2023-07-25] MEDS: Omeprazole 40 MG CAPSULE.DR PO (06:28)
--- NOTE | 2023-07-25 07:00 | CA_ITS ---
Transthoracic Echocardiogram Patient (Last, First, Middle): Cathy Roland A Gender: Female Date of : 1960 Age: 63 Procedure Date: 07/25/2023 Procedure Type: Transthoracic Echocardiogram Location: S3E Height: 152.4 cm Weight: 59.42 kg BSA: 1.56 m2 Heart Rate: 58 bpm BP: 107 / 68 mmHg Safety Patrol Officer: SB Referring MD: Hiral HUERTA Symptoms: bacteremia Study Quality: Adequate ECG Rhythm: Bradycardia Conclusions: - Hyperdynamic LV function. - No obvious vegetation on the visualized valves. Findings Left Ventricle Normal left ventricular cavity size. The left ventricular systolic function is hyperdynamic. The visually estimated ejection fraction is >70%. There is no evidence of regional wall motion abnormalities. Diastolic function is indeterminate on the basis of available data. Aortic Valve Normal aortic valve structure and function. There is no aortic valve regurgitation. Mitral Valve Normal mitral valve structure and function. There is no mitral valve regurgitation. There is no mitral valve stenosis. Pulmonic Valve The pulmonic valve is likely normal. Tricuspid Valve Normal tricuspid valve structure. There is trace tricuspid valve regurgitation. Venous The inferior vena cava is normal in size and collapses greater than 50% with inspiration. Pericardium/Pleural There is no evidence of pericardial effusion. Measurements 2D Linear Measurements LVIDd: 4.59 3.9-5.3/4.2-5.9 cm LVIDd Index: 2.94 2.4-3.2/2.2-3.1 cm/m2 LVIDs: 2.05 2.0-3.6 cm Tricuspid Valve TR Pk Fidencio: 2.18 TR Pk Grad: 19.00 RA Press: 3.00 RVSP: 22.00 Updated in Other Vendor System with Status of Final Gagan Garcia MD electronically signed on 07/25/2023 2:51:29 PM with status of Final
[2023-07-25 07:16] VITALS: BP 107/68; PULSE 73; RESP 14; TEMP 36; O2SAT 96
[2023-07-25 07:48] LABS: Bilirubin Direct 17.1 mg/dL (0.0-0.5)
[2023-07-25 07:49] LABS: Alanine Aminotransferase 10 U/L (0-31); Alkaline Phosphatase 128 U/L (39-117); Aspartate Amino Transferase 59 U/L (5-31); Bilirubin Total 24.8 mg/dL (0.0-1.0); Blood Urea Nitrogen 20 mg/dL (9-16); Calcium 8.3 mg/dL (8.4-10.2); Carbon Dioxide 18 mmol/L (22-29); Chloride 102 mmol/L (96-108); Glucose Random 122 mg/dL (60-115); Potassium 3.5 mmol/L (3.3-5.1); Sodium 135 mmol/L (135-145); Total Protein 4.6 g/dL (6.5-8.0)
[2023-07-25 07:53] LABS: Creatinine Clr Calc Pharmacy 10.3; Estimated Glomerular Filt Rate 10
--- NOTE | 2023-07-25 08:00 | PC.NURSE ---
CR 4.43 Dr. Mitchell chopra
[2023-07-25] MEDS: vancomycin HCL 500 MG in 0.9 % Sodium Chloride 100 ML 110 MG IV (08:47)
[2023-07-25] MEDS: Lidocaine 4 % Patch ADH..PATCH 1 PATCH TRANSDERMA (09:20)
[2023-07-25] MEDS: Lactulose 20 GM/30 ML SOLUTION PO (09:22)
[2023-07-25] MEDS: Metoprolol Tartrate 12.5 MG HALFTAB PO (09:22)
[2023-07-25] MEDS: rifAXIMin 550 MG TABLET PO ×2 (09:22→21:18)
[2023-07-25] MEDS: Magnesium Oxide 400 MG TABLET PO (09:22)
[2023-07-25] MEDS: Thiamine HCL 100 MG TABLET PO (09:23)
[2023-07-25] MEDS: Midodrine HCl 5 MG TABLET 15 MG PO ×3 (09:23→17:07)
[2023-07-25] MEDS: 0.9 % Sodium Chloride Flush 3 ML SYRINGE IVFLUSH ×3 (09:23→21:23)
[2023-07-25] MEDS: Folic Acid 1 MG TABLET PO (09:23)
--- NOTE | 2023-07-25 10:20 | HO.PM.IMPN ---
Subjective Subjective Date of Service: 07/25/23 Interval History: letahrgic Physical Exam Vital Signs: Vital Signs: Last Vital Signs Temp 96.8 F 07/25/23 07:16 Pulse 73 07/25/23 07:16 Resp 14 07/25/23 07:16 BP 107/68 07/25/23 07:16 Pulse Ox 96 07/25/23 07:16 O2 Del Method Room Air 07/25/23 07:16 BMI result Body Mass Index 25.6 Constitutional - Awake and Alert, No apparent distress Eyes - PERRLA, EOMI Cardiovascular - S1S2, RRR, No edema Respiratory - Normal lung expansion, Normal respiratory effort, No respiratory distress, CTA bilaterally Gastrointestinal - soft, distended with +fluid wave, ntt. +BS; No rebound or guarding. No asterixis Extremities - no calf tenderness bilaterally, no swelling Skin - Warm/Dry. Jaundice Neurological - Alert & oriented x3, but confused as to why she is here Psychological - tearful Objective Data Active Medications Bisacodyl (Bisacodyl 10 Mg Supp.Rect) 10 mg ND DAILY PRN PRN Reason: Constipation Folic Acid (Folic Acid 1 Mg Tablet) 1 mg PO DAILY [facility] Last Admin: 07/25/23 09:23 Dose: 1 mg Documented By: MAVERICK Guaifenesin (Guaifenesin 200 Mg/10 Ml 10 Ml Liquid) 10 ml PO Q4H PRN PRN Reason: Cough Hydromorphone HCl (Hydromorphone Hcl 0.5 Mg/0.5 Ml Syringe) 0.25 mg IVPUSH Q4H PRN; Protocol PRN Reason: Pain, Severe (Pain Scale 7-10) Last Admin: 07/24/23 15:14 Dose: 0.25 mg Documented By: PAMELA Ceftriaxone Sodium 2 gm/ (Sodium Chloride) 50 mls @ 100 mls/hr IV Q24H [facility] Last Infusion: 07/24/23 08:29 Dose: Infused Documented By: PAMELA Vancomycin HCl 500 mg/ Sodium (Chloride) 110 mls @ 110 mls/hr IV ONCE ONE Stop: 07/23/23 13:06 Octreotide Acetate 500 mcg/ (Sodium Chloride) 501 mls @ 50.1 mls/hr IVCONT .Q10H [facility] Last Admin: 07/25/23 09:18 Dose: 50 mcg/hr, 50.1 mls/hr Documented By: MAVERICK Lactulose (Lactulose 20 Gm/30 Ml Solution) 20 gm PO DAILY [facility] Last Admin: 07/25/23 09:22 Dose: 20 gm Documented By: MAVERICK Lidocaine (Lidocaine 4 % Patch Adh..Patch) 1 patch TRANSDERMA DAILY [facility]; Protocol Last Admin: 07/25/23 09:20 Dose: 1 patch Documented By: MAVERICK Magnesium Hydroxide (Milk Of Magnesia 30 Ml Oral.Susp) 30 ml PO DAILY PRN PRN Reason: Constipation Magnesium Oxide (Magnesium Oxide 400 Mg Tablet) 400 mg PO DAILY [facility] Last Admin: 07/25/23 09:22 Dose: 400 mg Documented By: MAVERICK Metoprolol Tartrate (Metoprolol Tartrate 12.5 Mg Halftab) 12.5 mg PO BID [facility]; Protocol Last Admin: 07/25/23 09:22 Dose: 12.5 mg Documented By: MAVERICK Midodrine (Midodrine Hcl 5 Mg Tablet) 15 mg PO TIDWM [facility] Last Admin: 07/25/23 09:23 Dose: 15 mg Documented By: MAVERICK Omeprazole (Omeprazole 40 Mg Capsule.Dr) 40 mg PO DAILY@0630 [facility] Last Admin: 07/25/23 06:28 Dose: 40 mg Documented By: CK Ondansetron HCl (Ondansetron Hcl 4 Mg/2 Ml Vial) 4 mg IVPUSH Q8H PRN PRN Reason: Nausea and Vomiting Pharmacy Consult (Consult Rx Vancomycin Dosing) 1 each MISCELLANE DAILY PRN PRN Reason: Consult order Rifaximin (Rifaximin 550 Mg Tablet) 550 mg PO BID [facility] Last Admin: 07/25/23 09:22 Dose: 550 mg Documented By: MAVERICK Sodium Biphosphate/Sodium Phosphate (Sodium Phosphate,[place]-Dibasic 133 Ml Enema) 118 ml ND DAILY PRN PRN Reason: Constipation Sodium Chloride (0.9 % Sodium Chloride Flush 3 Ml Syringe) 3 ml IVFLUSH QSHIFT [facility] Last Admin: 07/25/23 09:23 Dose: 3 ml Documented By: MAVERICK Thiamine HCl (Thiamine Hcl 100 Mg Tablet) 100 mg PO DAILY [facility] Last Admin: 07/25/23 09:23 Dose: 100 mg Documented By: MAVERICK Labs 07/25/23 05:24 07/25/23 05:24 Labs: Laboratory Results - last 24 hr 07/23/23 07/24/23 07/25/23 17:23 21:08 05:24 MCV 94.0 MCH 33.6 H MCHC 35.7 H RDW 20.1 H Plt Count 59 L MPV 12.4 H Immature Gran % (Auto) 0.6 H Neut % (Auto) 51.9 Lymph % (Auto) 24.7 Metcalfe % (Auto) 17.6 H Eos % (Auto) 3.4 Baso % (Auto) 1.8 Lymph # (Auto) 1.6 [place]calfe # (Auto) 1.2 Eos # (Auto) 0.2 Baso # (Auto) 0.1 Abs Immat Gran (auto) 0.04 H Absolute Neuts (auto) 3.4 Absolute Nucleated RBC 0.000 Nucleated RBC % (auto) 0.0 PT 23.4 H INR 1.9 H Anion Gap 17 Estim Creat Clear Calc 10.3 Estimated GFR 10 Random Glucose 122 H Calcium 8.3 L Total Bilirubin 24.8 H Direct Bilirubin 17.1 H AST 59 H ALT 10 Alkaline Phosphatase 128 H Total Protein 4.6 L Albumin 3.0 L Stl C. cayetanensis PCR Not Detected Stool Rotavirus A PCR Not Detected Stl Adenov F 40/41 PCR Not Detected Stool Astrovirus (PCR) Not Detected Stool Campylobacter PCR Not Detected Stool Cryptosporidium PCR Not Detected Stl Sh Tox Pr E STEC PCR Not Detected Stool E coli O157 PCR Not applicable Stl Enterotoxigenic E PCR Not Detected Stool EPEC (PCR) Not Detected Stool EAEC (PCR) Not Detected Stl E. histolytica PCR Not Detected Stool Giardia Lamblia PCR Not Detected Stl P. shigelloides PCR Not Detected Stool Salmonella PCR Not Detected Stool Sapovirus (PCR) Not Detected Stl Shigella/EIEC PCR Not Detected St Y.enterocolitica PCR Not Detected Stool Vibrio (PCR) Not Detected Stl Vibrio cholerae PCR Not Detected Stl Norovirus GI/GII PCR Not Detected Random Vancomycin 14.3 L 14.9 L Microbiology Microbiology Results: Microbiology 07/22/23 23:22 Gram Stain - Final Ascites Fluid Routine Culture - Preliminary No growth after 2 days Anaerobic Culture - Preliminary No growth to date. 07/23/23 13:41 Blood Culture - Preliminary Blood - Venous Enterococcus/Streptococcus sp 07/23/23 13:41 Blood Culture - Preliminary Blood - Venous Enterococcus/Streptococcus sp 07/22/23 22:04 Blood Culture - Final Blood - Venous Enterococcus faecalis 07/22/23 21:47 Blood Culture - Final Blood - Venous Enterococcus faecalis 07/23/23 17:36 Urine Culture - Preliminary Urine Catheterized - Yao Catheter Enterococcus faecium 07/24/23 01:27 Gram Stain - Final Sputum - Expectorated Sputum Culture - Final Assessment and Plan (1) Gram-positive bacteremia: Status: Acute (2) Severe sepsis: Status: Acute (3) Hypotension: Status: Acute (4) UTI (urinary tract infection): Status: Acute Plan 63F PMH alcoholic cirrhosis complicated by portal vein hypertension and ascites, hepatic encephalopathy on lactulose and rifaximin, alcohol use disorder, gout, hypertension, GERD presented with fevers sepsis due to e faecalis bacteremia likely due to infected hd catheter continue vanc, ceftriaxone if cutlures clear can potentially salvage catheter, otherwise will need removal and temp placement possible pneumonia continue abx possible UTI growing e faecium, continue abx as above Hypotension not related to sepsis, but rather hypovolemia from third spacing resolved, continue midodrine BRBPR inr 2.0, give 5mg vitamin k x 1 now octreotide for now H/H baseline and stable Monitor for now, GI consult- pt gi no scope at this time, consider once more stable HRS/ESRD on HD TThSat HD Decompensated hepatic cirrhosis complicated by ascites, portal vein hypertension. She is NOT a candidate for transplant Cholestatic phase now with chronic T.Bili evevation in the 30s. INR 2.0, vitamin K as abvoe. No steroids given recent/current GIB bedside dx paracentesis negative for SBP. Consider IR drainage tuesday if symtpomatic. HD as scheduled lactulose, rifaximin hold on further paracentesis at this time as no dyspnea, abd softly distended. Continue hd chronic thrombocytopenia due to cirrhosis DVT prophylaxis- SCPs due to gi bleed Full code reason for continued hospitalization: bacteremia Quality Stroke Does the patient have a stroke diagnosis?: No VTE Prior VTE?: No VTE Risk Level:: Medical - moderate - high VTE Device Contraindication: N/A - Device Ordered VTE Drug Contraindication: Treatment Not Indicated
[2023-07-25] MEDS: cefTRIAXone sodium 2 GM in 0.9 % Sodium Chloride 50 ML IV (10:51)
[2023-07-25 11:25] VITALS: BP 101/56; PULSE 59
--- NOTE | 2023-07-25 14:40 | MHC.CM.PN ---
PER MD ROUNDS, PT NOT YET MEDICALLY CLEARED DCP TBD PENDING PT EVAL RETURN TO [facility] TO RESUME STR AND HD VS HOME WITH SERVICES AND OP HD PT IS NOT A BED HOLD, HOWEVER [facility] IS FOLLOWING
[2023-07-25 15:33] VITALS: BP 96/55; PULSE 57; RESP 18; TEMP 36.6; O2SAT 95
[2023-07-25 19:12] VITALS: BP 90/51; PULSE 59; RESP 18; TEMP 36.1; O2SAT 97
[2023-07-25 21:00] VITALS: BP 99/54; PULSE 95; RESP 18; TEMP 36.3; O2SAT 99
[2023-07-26 03:18] VITALS: BP 99/53; PULSE 60; RESP 18; TEMP 36.2; O2SAT 97
[2023-07-26] MEDS: HYDROmorphone HCl 0.5 MG/0.5 ML SYRINGE 0.25 MG IVPUSH ×4 (03:31→15:05)
[2023-07-26] MEDS: Octreotide Acetate 500 MCG in 0.9 % Sodium Chloride 500 ML 50.1 MCG IVCONT ×2 (03:34→13:30)
[2023-07-26] MEDS: ondansetron HCL 4 MG/2 ML VIAL IVPUSH (03:39)
[2023-07-26] MEDS: Omeprazole 40 MG CAPSULE.DR PO (05:40)
[2023-07-26 07:25] LABS: Creatinine Clr Calc Pharmacy 8.3; Estimated Glomerular Filt Rate 8
[2023-07-26 07:29] VITALS: BP 108/70; PULSE 74; RESP 14; TEMP 36.2; O2SAT 97
[2023-07-26] MEDS: Lidocaine 4 % Patch ADH..PATCH 1 PATCH TRANSDERMA (08:32)
[2023-07-26] MEDS: Thiamine HCL 100 MG TABLET PO (08:32)
[2023-07-26] MEDS: Lactulose 20 GM/30 ML SOLUTION PO (08:32)
[2023-07-26] MEDS: 0.9 % Sodium Chloride Flush 3 ML SYRINGE IVFLUSH (08:32)
[2023-07-26] MEDS: Metoprolol Tartrate 12.5 MG HALFTAB PO ×2 (08:33→21:02)
[2023-07-26] MEDS: Midodrine HCl 5 MG TABLET 15 MG PO ×3 (08:33→16:05)
[2023-07-26] MEDS: rifAXIMin 550 MG TABLET PO ×2 (08:33→21:02)
[2023-07-26] MEDS: Magnesium Oxide 400 MG TABLET PO (08:33)
[2023-07-26] MEDS: Folic Acid 1 MG TABLET PO (08:33)
--- NOTE | 2023-07-26 09:07 | HO.PM.IMPN ---
Subjective Subjective Date of Service: 07/26/23 Interval History: persistent bacteremia Physical Exam Vital Signs: Vital Signs: Last Vital Signs Temp 97.1 F 07/26/23 07:29 Pulse 74 07/26/23 07:29 Resp 14 07/26/23 07:29 BP 108/70 07/26/23 07:29 Pulse Ox 97 07/26/23 07:29 O2 Del Method Room Air 07/26/23 07:29 BMI result Body Mass Index 25.6 Constitutional - Awake and Alert, No apparent distress Eyes - PERRLA, EOMI Cardiovascular - S1S2, RRR, No edema Respiratory - Normal lung expansion, Normal respiratory effort, No respiratory distress, CTA bilaterally Gastrointestinal - soft, distended with +fluid wave, ntt. +BS; No rebound or guarding. No asterixis Extremities - no calf tenderness bilaterally, no swelling Skin - Warm/Dry. Jaundice Neurological - Alert & oriented x3, but confused as to why she is here Psychological - tearful Objective Data Active Medications Bisacodyl (Bisacodyl 10 Mg Supp.Rect) 10 mg HI DAILY PRN PRN Reason: Constipation Folic Acid (Folic Acid 1 Mg Tablet) 1 mg PO DAILY [facility] Last Admin: 07/26/23 08:33 Dose: 1 mg Documented By: JOHANA Guaifenesin (Guaifenesin 200 Mg/10 Ml 10 Ml Liquid) 10 ml PO Q4H PRN PRN Reason: Cough Hydromorphone HCl (Hydromorphone Hcl 0.5 Mg/0.5 Ml Syringe) 0.25 mg IVPUSH Q4H PRN; Protocol PRN Reason: Pain, Severe (Pain Scale 7-10) Last Admin: 07/26/23 03:31 Dose: 0.25 mg Documented By: MAILE Ceftriaxone Sodium 2 gm/ (Sodium Chloride) 50 mls @ 100 mls/hr IV Q24H [facility] Last Infusion: 07/25/23 11:28 Dose: Infused Documented By: MAVERICK Vancomycin HCl 500 mg/ Sodium (Chloride) 110 mls @ 110 mls/hr IV ONCE ONE Stop: 07/23/23 13:06 Octreotide Acetate 500 mcg/ (Sodium Chloride) 501 mls @ 50.1 mls/hr IVCONT .Q10H [facility] Last Admin: 07/26/23 03:34 Dose: 50 mcg/hr, 50.1 mls/hr Documented By: MAILE Lactulose (Lactulose 20 Gm/30 Ml Solution) 20 gm PO DAILY [facility] Last Admin: 07/26/23 08:32 Dose: 20 gm Documented By: JOHANA Lidocaine (Lidocaine 4 % Patch Adh..Patch) 1 patch TRANSDERMA DAILY [facility]; Protocol Last Admin: 07/26/23 08:32 Dose: 1 patch Documented By: JOHANA Magnesium Hydroxide (Milk Of Magnesia 30 Ml Oral.Susp) 30 ml PO DAILY PRN PRN Reason: Constipation Magnesium Oxide (Magnesium Oxide 400 Mg Tablet) 400 mg PO DAILY [facility] Last Admin: 07/26/23 08:33 Dose: 400 mg Documented By: JOHANA Metoprolol Tartrate (Metoprolol Tartrate 12.5 Mg Halftab) 12.5 mg PO BID [facility]; Protocol Last Admin: 07/26/23 08:33 Dose: 12.5 mg Documented By: JOHANA Midodrine (Midodrine Hcl 5 Mg Tablet) 15 mg PO TIDWM [facility] Last Admin: 07/26/23 08:33 Dose: 15 mg Documented By: JOHANA Omeprazole (Omeprazole 40 Mg Capsule.Dr) 40 mg PO DAILY@0630 [facility] Last Admin: 07/26/23 05:40 Dose: 40 mg Documented By: MAILE Ondansetron HCl (Ondansetron Hcl 4 Mg/2 Ml Vial) 4 mg IVPUSH Q8H PRN PRN Reason: Nausea and Vomiting Last Admin: 07/26/23 03:39 Dose: 4 mg Documented By: MAILE Pharmacy Consult (Consult Rx Vancomycin Dosing) 1 each MISCELLANE DAILY PRN PRN Reason: Consult order Rifaximin (Rifaximin 550 Mg Tablet) 550 mg PO BID [facility] Last Admin: 07/26/23 08:33 Dose: 550 mg Documented By: JOHANA Sodium Biphosphate/Sodium Phosphate (Sodium Phosphate,[place]offey-Dibasic 133 Ml Enema) 118 ml HI DAILY PRN PRN Reason: Constipation Sodium Chloride (0.9 % Sodium Chloride Flush 3 Ml Syringe) 3 ml IVFLUSH QSHIFT [facility] Last Admin: 07/26/23 08:32 Dose: 3 ml Documented By: JOHANA Thiamine HCl (Thiamine Hcl 100 Mg Tablet) 100 mg PO DAILY [facility] Last Admin: 07/26/23 08:32 Dose: 100 mg Documented By: JOHANA Labs 07/25/23 05:24 07/26/23 05:42 Labs: Laboratory Results - last 24 hr 07/26/23 05:42 Estim Creat Clear Calc 8.3 Estimated GFR 8 Microbiology Microbiology Results: Microbiology 07/22/23 23:22 Gram Stain - Final Ascites Fluid Routine Culture - Preliminary No growth after 2 days Anaerobic Culture - Preliminary No growth to date. 07/23/23 17:36 Urine Culture - Final Urine Catheterized - Yao Catheter Enterococcus faecium 07/23/23 13:41 Blood Culture - Final Blood - Venous Enterococcus faecalis 07/23/23 13:41 Blood Culture - Final Blood - Venous Enterococcus faecalis 07/24/23 15:57 Blood Culture - Preliminary Blood - Venous No growth after 24 hours. 07/24/23 15:57 Blood Culture - Preliminary Blood - Venous Prelim: GPC Gram Stain only 07/22/23 22:04 Blood Culture - Final Blood - Venous Enterococcus faecalis 07/22/23 21:47 Blood Culture - Final Blood - Venous Enterococcus faecalis Assessment and Plan (1) Gram-positive bacteremia: Status: Acute (2) Severe sepsis: Status: Acute (3) Hypotension: Status: Acute (4) UTI (urinary tract infection): Status: Acute Plan 63F PMH alcoholic cirrhosis complicated by portal vein hypertension and ascites, hepatic encephalopathy on lactulose and rifaximin, alcohol use disorder, gout, hypertension, GERD presented with fevers sepsis due to e faecalis bacteremia likely due to infected hd catheter continue vanc 3rd cultures from 07/24/23 growing 1/2 plan to remove permacath and allow for catheter holiday possible pneumonia less likely, will dc rocephin possible UTI growing e faecium, follow up ID, ? need for separate treatement Hypotension not related to sepsis, but rather hypovolemia from third spacing continue midodrine BRBPR inr 2.0, give 5mg vitamin k x 1 now octreotide day 3 for now H/H baseline and stable Monitor for now, GI consult- pt gi no scope at this time, consider once more stable HRS/ESRD on HD TThSat HD Decompensated hepatic cirrhosis complicated by ascites, portal vein hypertension. She is NOT a candidate for transplant Cholestatic phase now with chronic T.Bili evevation in the 30s. INR 2.0, vitamin K as abvoe. No steroids given recent/current GIB bedside dx paracentesis negative for SBP. lactulose, rifaximin hold on further paracentesis at this time as no dyspnea, abd softly distended. Continue hd chronic thrombocytopenia due to cirrhosis DVT prophylaxis- SCPs due to gi bleed Full code reason for continued hospitalization: bacteremia Quality Stroke Does the patient have a stroke diagnosis?: No VTE Prior VTE?: No VTE Risk Level:: Medical - moderate - high VTE Device Contraindication: N/A - Device Ordered VTE Drug Contraindication: Treatment Not Indicated
[2023-07-26 13:09] VITALS: BP 100/56; PULSE 64; RESP 12; O2SAT 98
[2023-07-26] MEDS: Albumin Human 25 % 100 ML IV ×2 (13:36→14:36)
--- NOTE | 2023-07-26 14:49 | MHC.CM.PN ---
per rtounds pt still bacterimic not ready for dc
[2023-07-26 15:57] VITALS: BP 113/56; PULSE 61; RESP 16; TEMP 36.3; O2SAT 96
[2023-07-26 19:48] VITALS: BP 106/59; PULSE 61; RESP 16; TEMP 36.4; O2SAT 98
[2023-07-26 19:58] LABS: Vancomycin Random 15.2 mcg/mL (15-20)
[2023-07-27] MEDS: Octreotide Acetate 500 MCG in 0.9 % Sodium Chloride 500 ML 50.1 MCG IVCONT ×2 (00:13→09:09)
[2023-07-27 03:38] VITALS: BP 101/58; PULSE 53; RESP 16; TEMP 36.3; O2SAT 97
[2023-07-27 05:42] LABS: Hemoglobin 9.2 g/dl (12.0-16.0); PLT ABN DIST 1
[2023-07-27 05:44] LABS: Hematocrit 25.5 % (37.0-47.0); Mean Corpuscular HGB Conc 36.1 g/dl (31.0-35.0); Mean Corpuscular Hemoglobin 33.9 pg (27.0-33.0); Mean Corpuscular Volume 94.1 fL (80.0-98.0); Mean Platelet Volume 11.6 fL (9.4-12.3); Red Blood Count 2.71 X10*6/uL (4.20-5.50); Red Cell Distribution Width 19.3 % (11.0-16.0); White Blood Count 9.9 X10*3/uL (4.8-10.8)
[2023-07-27 05:50] LABS: Platelet Count 61 X10*3/uL (160-400)
[2023-07-27 05:53] LABS: INTERNATIONAL NORM RATIO 1.9 (0.9-1.1)
[2023-07-27] MEDS: Omeprazole 40 MG CAPSULE.DR PO (06:23)
[2023-07-27 06:52] LABS: Alanine Aminotransferase 16 U/L (0-31); Albumin Level 3.5 g/dL (3.5-5.0); Alkaline Phosphatase 148 U/L (39-117); Anion Gap 16 (12-20); Aspartate Amino Transferase 81 U/L (5-31); Bilirubin Total 27.7 mg/dL (0.0-1.0); Blood Urea Nitrogen 15 mg/dL (9-16); Calcium 8.9 mg/dL (8.4-10.2); Carbon Dioxide 20 mmol/L (22-29); Chloride 103 mmol/L (96-108); Creatinine Clr Calc Pharmacy 10.5; Estimated Glomerular Filt Rate 10; Glucose Fasting 124 mg/dL (60-99); Magnesium 2.1 mg/dL (1.6-2.6); Potassium 3.7 mmol/L (3.3-5.1); Sodium 135 mmol/L (135-145); Total Protein 5.2 g/dL (6.5-8.0)
[2023-07-27 07:50] VITALS: BP 94/55; PULSE 67; RESP 12; TEMP 36.1; O2SAT 97
[2023-07-27] MEDS: Midodrine HCl 5 MG TABLET 15 MG PO ×3 (09:09→17:10)
[2023-07-27] MEDS: 0.9 % Sodium Chloride Flush 3 ML SYRINGE IVFLUSH ×2 (09:09→17:10)
[2023-07-27] MEDS: Metoprolol Tartrate 12.5 MG HALFTAB PO (09:14)
[2023-07-27] MEDS: rifAXIMin 550 MG TABLET PO (09:14)
[2023-07-27] MEDS: Folic Acid 1 MG TABLET PO (09:14)
[2023-07-27] MEDS: Lactulose 20 GM/30 ML SOLUTION PO (09:14)
[2023-07-27] MEDS: Thiamine HCL 100 MG TABLET PO (09:15)
[2023-07-27] MEDS: Magnesium Oxide 400 MG TABLET PO (09:15)
[2023-07-27] MEDS: Lidocaine 4 % Patch ADH..PATCH 1 PATCH TRANSDERMA (09:15)
--- NOTE | 2023-07-27 10:00 | P.CONNP_ITS ---
History of Present Illness Reason for Consult Consult date: 07/28/23 Chief Complaint Chief complaint: Line sepsis, possible pneumonia, bacteremia History of Present Illness Narrative: 63-year-old female with history of alcoholic cirrhosis complicated by portal vein hypertension and ascites, hepatic encephalopathy on lactulose and rifaximin, alcohol use disorder, gout, hypertension, GERD presented to the ED from SNF due to fevers of 101.8 and cough. While at the facility, was also noted to be tachypneic with heart rate of 121. The patient is a vague historian and is unable to provide much history. Believes she has had a cough for the last week. She was just discharged from our facility after being hospitalized July 03- for acute decompensated cirrhosis and HRS started on HD TThSat (last dialyzed ), permacath in place R chest, as well as hospitalization 06/05- 06/20 for acute alcoholic hepatitis though prednisone had to be discontinued due to GI bleed Blood cultures were positive. She is currently undergoing dialysis with a catheter. [facility] Past Medical History Medical History Acute kidney injury Hepatic encephalopathy Alcoholic hepatitis Thrombocytopenia Portal venous hypertension Abdominal ascites Hyperlipidemia GERD (gastroesophageal reflux disease) Hypertension Cirrhosis Alcohol abuse Surgical History Surgical History Hx of section History of back surgery Hx of esophagogastroduodenoscopy Hx of colonoscopy Social History Social History Household Members: None Housing: Skilled Nursing Housing Other:: trailer Do you presently have visiting nurse or other home services: No Alcohol intake: former Patient Tobacco Use Status: Former Tobacco user Quit Date: 06/05/23 Tobacco use type: Cigarette Cigarette Packs Per Day: 1 Cigarettes Per Day: 1 Years Smoked: 40 e-Cigarette/Vaping Use: Never Used Second Hand Smoke Exposure: No service: No Meds Allergies Allergy/AdvReac Type Severity Reaction Status Date / Time codeine [CODEINE] Allergy Unknown NAUSEA Verified 07/22/23 21:24 Active Medications: Current Medications Bisacodyl (Bisacodyl 10 Mg Supp.Rect) 10 mg WA DAILY PRN PRN Reason: Constipation Folic Acid (Folic Acid 1 Mg Tablet) 1 mg PO DAILY [facility] Last Admin: 07/27/23 09:14 Dose: 1 mg Guaifenesin (Guaifenesin 200 Mg/10 Ml 10 Ml Liquid) 10 ml PO Q4H PRN PRN Reason: Cough Hydromorphone HCl (Hydromorphone Hcl 0.5 Mg/0.5 Ml Syringe) 0.25 mg IVPUSH Q4H PRN; Protocol PRN Reason: Pain, Severe (Pain Scale 7-10) Last Admin: 07/26/23 15:05 Dose: 0.25 mg Vancomycin HCl 500 mg/ Sodium (Chloride) 110 mls @ 110 mls/hr IV ONCE ONE Stop: 07/23/23 13:06 Lactulose (Lactulose 20 Gm/30 Ml Solution) 20 gm PO DAILY [facility] Last Admin: 07/27/23 09:14 Dose: 20 gm Lidocaine (Lidocaine 4 % Patch Adh..Patch) 1 patch TRANSDERMA DAILY [facility]; Protocol Last Admin: 07/27/23 09:15 Dose: 1 patch Magnesium Hydroxide (Milk Of Magnesia 30 Ml Oral.Susp) 30 ml PO DAILY PRN PRN Reason: Constipation Magnesium Oxide (Magnesium Oxide 400 Mg Tablet) 400 mg PO DAILY [facility] Last Admin: 07/27/23 09:15 Dose: 400 mg Metoprolol Tartrate (Metoprolol Tartrate 12.5 Mg Halftab) 12.5 mg PO BID [facility]; Protocol Last Admin: 07/27/23 09:14 Dose: 12.5 mg Midodrine (Midodrine Hcl 5 Mg Tablet) 15 mg PO TIDWM [facility] Last Admin: 07/27/23 09:09 Dose: 15 mg Omeprazole (Omeprazole 40 Mg Capsule.Dr) 40 mg PO DAILY@0630 [facility] Last Admin: 07/27/23 06:23 Dose: 40 mg Ondansetron HCl (Ondansetron Hcl 4 Mg/2 Ml Vial) 4 mg IVPUSH Q8H PRN PRN Reason: Nausea and Vomiting Last Admin: 07/26/23 03:39 Dose: 4 mg Pharmacy Consult (Consult Rx Vancomycin Dosing) 1 each MISCELLANE DAILY PRN PRN Reason: Consult order Rifaximin (Rifaximin 550 Mg Tablet) 550 mg PO BID [facility] Last Admin: 07/27/23 09:14 Dose: 550 mg Sodium Biphosphate/Sodium Phosphate (Sodium Phosphate,[place]-Dibasic 133 Ml Enema) 118 ml WA DAILY PRN PRN Reason: Constipation Sodium Chloride (0.9 % Sodium Chloride Flush 3 Ml Syringe) 3 ml IVFLUSH QSHIFT [facility] Last Admin: 07/27/23 09:09 Dose: 3 ml Thiamine HCl (Thiamine Hcl 100 Mg Tablet) 100 mg PO DAILY [facility] Last Admin: 07/27/23 09:15 Dose: 100 mg Home Medications ?Medication ?Instructions ?Recorded ?Confirmed ?Last Taken ?Type rifaximin 550 mg tablet 550 mg PO BID 07/04/23 07/23/23 07/03/23 History bisacodyl 10 mg rectal suppository 10 mg WA DAILY PRN Constipation 07/23/23 07/23/23 Unknown History (Dulcolax (bisacodyl)) magnesium hydroxide 400 mg/5 mL 30 ml PO DAILY PRN Constipation 07/23/23 07/23/23 Unknown History oral suspension (Milk of Magnesia) sodium phosphates 19 gram-7 118 ml WA DAILY PRN Constipation 07/23/23 07/23/23 Unknown History gram/118 mL enema (Fleet Enema) Physical Exam Vital Signs: Last Vital Signs Temp 96.9 F 07/27/23 07:50 Pulse 67 07/27/23 07:50 Resp 12 07/27/23 07:50 BP 94/55 L 07/27/23 07:50 Pulse Ox 97 07/27/23 07:50 O2 Del Method Room Air 07/27/23 07:50 BMI result Body Mass Index 25.6 Awake. Comfortable. Neck is supple. Mucosa moist. Lungs bilateral scattered rhonchi. Heart S1-S2 heard no gallop. Abdomen soft. Extremities no edema. No involuntary movements. No myoclonus. Results Lab Results 07/28/23 05:18 07/28/23 05:18 Lab results: Chemistry 07/25/23 07/26/23 07/27/23 05:24 05:42 05:24 Sodium 135 135 Potassium 3.5 3.7 Carbon Dioxide 18 L 20 L BUN 20 H 15 Creatinine 4.43 H* 5.45 H* 4.36 H* Calcium 8.3 L 8.9 D Hematology 07/25/23 07/27/23 05:24 05:24 WBC 6.5 9.9 Hgb 9.0 L 9.2 L Plt Count 59 L 61 L Assessment and Plan (1) Hypotension: Status: Acute (2) Gram-positive bacteremia: Status: Acute (3) Chronic renal failure: Status: Acute Plan Advanced renal failure approaching end stage renal disease. Currently on maintenance hemodialysis. No signs of renal recovery. In view of the bacteremia the PermCath has been removed. Catheter holiday for next 48 hours If blood cultures are negative we will reinsert PermCath. She will follow along with the team Procedures Date of Service Date of Service: 07/28/23
--- NOTE | 2023-07-27 10:33 | HO.PM.IMPN ---
Subjective Subjective Date of Service: 07/27/23 Interval History: Seen and evaluated this morning Feels better overall reporting enlarging ascites no fever or chills no other events Review of Systems Review of Systems: Yes all other systems are reviewed and are negative Physical Exam Vital Signs: Vital Signs: Last Vital Signs Temp 96.9 F 07/27/23 07:50 Pulse 67 07/27/23 07:50 Resp 12 07/27/23 07:50 BP 94/55 L 07/27/23 07:50 Pulse Ox 97 07/27/23 07:50 O2 Del Method Room Air 07/27/23 07:50 BMI result Body Mass Index 25.6 Const: Other: Constitutional : Awake, interactive, not in distress, jaundiced Neck : Normal inspection, Supple Cardiovascular : RRR, no JVP, no lower extremity edema Respiratory : good bilateral air entry, no crackles, wheezes or rhonchi Gastrointestinal: soft, lax, Normal bowel sounds,moderate distended with moderate-large ascites, non-tender Skin : Warm, Dry Neurological : Alert & oriented x3, No focal deficit Objective Data Active Medications Bisacodyl (Bisacodyl 10 Mg Supp.Rect) [address] DAILY PRN PRN Reason: Constipation Folic Acid (Folic Acid 1 Mg Tablet) 1 mg PO DAILY [facility] Last Admin: 07/27/23 09:14 Dose: 1 mg Documented By: JOHANA Guaifenesin (Guaifenesin 200 Mg/10 Ml 10 Ml Liquid) 10 ml PO Q4H PRN PRN Reason: Cough Hydromorphone HCl (Hydromorphone Hcl 0.5 Mg/0.5 Ml Syringe) 0.25 mg IVPUSH Q4H PRN; Protocol PRN Reason: Pain, Severe (Pain Scale 7-10) Last Admin: 07/26/23 15:05 Dose: 0.25 mg Documented By: KASSIDY Vancomycin HCl 500 mg/ Sodium (Chloride) 110 mls @ 110 mls/hr IV ONCE ONE Stop: 07/23/23 13:06 Lactulose (Lactulose 20 Gm/30 Ml Solution) 20 gm PO DAILY [facility] Last Admin: 07/27/23 09:14 Dose: 20 gm Documented By: JOHANA Lidocaine (Lidocaine 4 % Patch Adh..Patch) 1 patch TRANSDERMA DAILY [facility]; Protocol Last Admin: 07/27/23 09:15 Dose: 1 patch Documented By: JOHANA Magnesium Hydroxide (Milk Of Magnesia 30 Ml Oral.Susp) 30 ml PO DAILY PRN PRN Reason: Constipation Magnesium Oxide (Magnesium Oxide 400 Mg Tablet) 400 mg PO DAILY [facility] Last Admin: 07/27/23 09:15 Dose: 400 mg Documented By: JOHANA Metoprolol Tartrate (Metoprolol Tartrate 12.5 Mg Halftab) 12.5 mg PO BID [facility]; Protocol Last Admin: 07/27/23 09:14 Dose: 12.5 mg Documented By: JOHANA Midodrine (Midodrine Hcl 5 Mg Tablet) 15 mg PO TIDWM [facility] Last Admin: 07/27/23 09:09 Dose: 15 mg Documented By: JOHANA Omeprazole (Omeprazole 40 Mg Capsule.Dr) 40 mg PO DAILY@0630 [facility] Last Admin: 07/27/23 06:23 Dose: 40 mg Documented By: MYRNA Ondansetron HCl (Ondansetron Hcl 4 Mg/2 Ml Vial) 4 mg IVPUSH Q8H PRN PRN Reason: Nausea and Vomiting Last Admin: 07/26/23 03:39 Dose: 4 mg Documented By: MAILE Pharmacy Consult (Consult Rx Vancomycin Dosing) 1 each MISCELLANE DAILY PRN PRN Reason: Consult order Rifaximin (Rifaximin 550 Mg Tablet) 550 mg PO BID [facility] Last Admin: 07/27/23 09:14 Dose: 550 mg Documented By: JOHANA Sodium Biphosphate/Sodium Phosphate (Sodium Phosphate,[place]-Dibasic 133 Ml Enema) [address] DAILY PRN PRN Reason: Constipation Sodium Chloride (0.9 % Sodium Chloride Flush 3 Ml Syringe) 3 ml IVFLUSH QSHIFT [facility] Last Admin: 07/27/23 09:09 Dose: 3 ml Documented By: JOHANA Thiamine HCl (Thiamine Hcl 100 Mg Tablet) 100 mg PO DAILY [facility] Last Admin: 07/27/23 09:15 Dose: 100 mg Documented By: JOHANA Labs 07/27/23 05:24 07/27/23 05:24 Labs: Laboratory Results - last 24 hr 07/26/23 07/27/23 19:22 05:24 MCV 94.1 MCH 33.9 H MCHC 36.1 H RDW 19.3 H Plt Count 61 L MPV 11.6 Absolute Nucleated RBC 0.000 Nucleated RBC % (auto) 0.0 PT 23.0 H INR 1.9 H Anion Gap 16 Estim Creat Clear Calc 10.5 Estimated GFR 10 Fasting Glucose 124 H Calcium 8.9 D Magnesium 2.1 Total Bilirubin 27.7 H Direct Bilirubin 19.0 H AST 81 H ALT 16 Alkaline Phosphatase 148 H Total Protein 5.2 L Albumin 3.5 Random Vancomycin 15.2 Microbiology Microbiology Results: Microbiology 07/26/23 15:30 Catheter Tip Culture - Preliminary Catheter Tip - Other No growth to date. 07/24/23 15:57 Blood Culture - Preliminary Blood - Venous No growth after 48 hours. 07/24/23 15:57 Blood Culture - Preliminary Blood - Venous Prelim: GPC Gram Stain only 07/22/23 23:22 Gram Stain - Final Ascites Fluid Routine Culture - Preliminary No growth after 2 days Anaerobic Culture - Preliminary No growth to date. 07/23/23 17:36 Urine Culture - Final Urine Catheterized - Yao Catheter Enterococcus faecium 07/23/23 13:41 Blood Culture - Final Blood - Venous Enterococcus faecalis 07/23/23 13:41 Blood Culture - Final Blood - Venous Enterococcus faecalis Assessment and Plan (1) Hypotension: Status: Acute (2) Gram-positive bacteremia: Status: Acute (3) Acute hemodialysis patient: Status: Acute Plan 63F PMH alcoholic cirrhosis complicated by portal vein hypertension and ascites, hepatic encephalopathy on lactulose and rifaximin, alcohol use disorder, gout, hypertension, GERD presented with fevers Sepsis due to E.Faecalis bacteremia likely due to infected hd catheter continue Vancomycin 3rd cultures from 07/24/23 growing 1/2 plan to remove permacath and allow for catheter holiday possible pneumonia less likely, will dc rocephin possible UTI growing e faecium, no need for Tx per ID Hypotension, chronic not related to sepsis, but rather hypovolemia from third spacing continue midodrine BRBPR inr 2.0, give 5mg vitamin k x 1 now dc octreotide day 3 finished H/H baseline and stable Monitor for now, GI consult- pt gi no scope at this time, consider once more stable HRS/ESRD on HD TThSat Line break for 48 hours, nephro following Decompensated hepatic cirrhosis complicated by ascites, portal vein hypertension. She is NOT a candidate for transplant Cholestatic phase now with chronic T.Bili evevation in the 30s. INR 2.0, vitamin K as abvoe. No steroids given recent/current GIB to do therapeutic paracentesis tomorrow lactulose, rifaximin chronic thrombocytopenia due to cirrhosis DVT prophylaxis- SCPs due to gi bleed Full code reason for continued hospitalization: bacteremia Quality Stroke Does the patient have a stroke diagnosis?: No VTE Prior VTE?: No VTE Risk Level:: Medical - moderate - high VTE Device Contraindication: N/A - Device Ordered VTE Drug Contraindication: Treatment Not Indicated
--- NOTE | 2023-07-27 11:02 | MHC.CM.PN ---
EMR REVIEWED, BC'S PENDING, PT ALSO WILL NEED NEW HD CATH, ANTIC CATH WILL NOT BE PLACED UNTIL EARLY NEXT WEEK, ANTIC PT WILL RETURN TO [facility] FOR STR, CM WILL CONT TO FOLLOW DC NEEDS.
--- NOTE | 2023-07-27 11:35 | PC.NURSE ---
Addendum entered by Alessia Castillo RN 07/27/23 18:35: @1700 pt still has not voided, encouraged to got OOB to commode and was able to urinate very small amount <50mls, 1830 pt was bladder scanned for 64mls, Dr. Ku made aware. Pt is dialysis pt and does not make much urine at baseline Original Note: patient's kaba cath removed at 1100, DTV by 1700, pt tolerated well
[2023-07-27 12:18] VITALS: BP 95/55
[2023-07-27] MEDS: HYDROmorphone HCl 0.5 MG/0.5 ML SYRINGE 0.25 MG IVPUSH (13:10)
[2023-07-27 13:33] LABS: Strep Pneumo Ag urine Detected (Not Detected)
[2023-07-27 15:11] VITALS: BP 102/60; PULSE 57; RESP 16; TEMP 36.5; O2SAT 96
[2023-07-27 19:24] VITALS: BP 101/57; PULSE 53; RESP 16; TEMP 36.6; O2SAT 100
[2023-07-28 03:23] VITALS: BP 106/69; PULSE 67; RESP 16; TEMP 36.2; O2SAT 95
--- NOTE | 2023-07-28 04:58 | PC.NURSE ---
Bladder scan of pt read 697 ml. Pt denied having the urinated, she was agreeable to go onto the commode but only about 3 drops of urine happened. 3 RNs attempted to straight cath pt. Each time resistance was met and catheter could not be advanced. Another RN attempted straight cath while pt was in trendelenberg d/t pt's abdomen being large d/t her ascites. Resistance was once again met but some advancement was made w/no urine returned. When catheter was removed, approximately 2 mls of blood came out. She did report pain with the attempts. Pt cleaned and repositioned. Hospitalist made aware, advised to no longer try to straight cath patient, this RN in agreement with this plan. Believe the ascites is what is causing the high reading from the bladder scanner.
[2023-07-28] MEDS: Omeprazole 40 MG CAPSULE.DR PO (05:24)
[2023-07-28 05:36] LABS: Mean Corpuscular Hemoglobin 33.5 pg (27.0-33.0); Mean Corpuscular Volume 92.9 fL (80.0-98.0); Mean Platelet Volume 12.3 fL (9.4-12.3); Red Blood Count 2.69 X10*6/uL (4.20-5.50); White Blood Count 9.3 X10*3/uL (4.8-10.8)
[2023-07-28 05:37] LABS: Platelet Count 76 X10*3/uL (160-400)
[2023-07-28 05:53] LABS: Anion Gap 19 (12-20); Blood Urea Nitrogen 18 mg/dL (9-16); Calcium 8.8 mg/dL (8.4-10.2); Carbon Dioxide 17 mmol/L (22-29); Chloride 102 mmol/L (96-108); Creatinine Clr Calc Pharmacy 8.8; Estimated Glomerular Filt Rate 8; Glucose Random 136 mg/dL (60-115); Potassium 3.6 mmol/L (3.3-5.1); Sodium 134 mmol/L (135-145)
[2023-07-28 07:36] VITALS: BP 94/56; PULSE 62; RESP 12; TEMP 36.5; O2SAT 96
[2023-07-28] MEDS: Lactulose 20 GM/30 ML SOLUTION PO (08:48)
[2023-07-28] MEDS: 0.9 % Sodium Chloride Flush 3 ML SYRINGE IVFLUSH ×3 (08:48→21:31)
[2023-07-28] MEDS: Lidocaine 4 % Patch ADH..PATCH 1 PATCH TRANSDERMA (08:49)
[2023-07-28] MEDS: Metoprolol Tartrate 12.5 MG HALFTAB PO (08:49)
[2023-07-28] MEDS: Thiamine HCL 100 MG TABLET PO (08:49)
[2023-07-28] MEDS: Folic Acid 1 MG TABLET PO (08:49)
[2023-07-28] MEDS: Midodrine HCl 5 MG TABLET 15 MG PO ×3 (08:49→17:01)
[2023-07-28] MEDS: Magnesium Oxide 400 MG TABLET PO (08:49)
[2023-07-28] MEDS: rifAXIMin 550 MG TABLET PO ×2 (08:49→21:27)
--- NOTE | 2023-07-28 10:56 | P.PNNP_ITS ---
Subjective Subjective Date of Service: 08/01/23 Interval history: Seen and evaluated this morning Feels better overall reporting enlarging ascites no fever or chills no other events Physical Exam 2 Vital Signs: Vital Signs: Last Vital Signs Temp 97.7 F 07/28/23 07:36 Pulse 62 07/28/23 07:36 Resp 12 07/28/23 07:36 BP 94/56 L 07/28/23 07:36 Pulse Ox 96 07/28/23 07:36 O2 Del Method Room Air 07/28/23 07:36 BMI result Body Mass Index 25.6 Const: Other: Constitutional : Awake, interactive, not in distress, jaundiced Neck : Normal inspection, Supple Cardiovascular : RRR, no JVP, no lower extremity edema Respiratory : good bilateral air entry, no crackles, wheezes or rhonchi Gastrointestinal: soft, lax, Normal bowel sounds,moderate distended with moderate-large ascites, non-tender Skin : Warm, Dry Neurological : Alert & oriented x3, No focal deficit Objective Data Labs 08/01/23 05:42 07/31/23 06:27 Labs: Laboratory Results - last 24 hr 07/23/23 07/28/23 17:36 05:18 WBC 9.3 RBC 2.69 L Hgb 9.0 L Hct 25.0 L MCV 92.9 MCH 33.5 H MCHC 36.0 H RDW 19.0 H Plt Count 76 L MPV 12.3 Absolute Nucleated RBC 0.000 Nucleated RBC % (auto) 0.0 Sodium 134 L Potassium 3.6 Chloride 102 Carbon Dioxide 17 L Anion Gap 19 BUN 18 H Creatinine 5.19 H* Estim Creat Clear Calc 8.8 Estimated GFR 8 Random Glucose 136 H Calcium 8.8 Ur Strep pneumoniae Ag Detected A Microbiology Microbiology Results: Microbiology 07/26/23 15:30 Catheter Tip - Other Catheter Tip Culture - Preliminary No growth to date. 07/22/23 23:22 Ascites Fluid Gram Stain - Final 07/22/23 23:22 Ascites Fluid Routine Culture - Final No growth after 2 days 07/22/23 23:22 Ascites Fluid Anaerobic Culture - Final NO GROWTH AFTER 5 DAYS 07/27/23 05:24 Blood - Venous Blood Culture - Preliminary No growth after 24 hours. 07/27/23 05:24 Blood - Venous Blood Culture - Preliminary No growth after 24 hours. 07/24/23 15:57 Blood - Venous Blood Culture - Preliminary No growth after 48 hours. 07/24/23 15:57 Blood - Venous Blood Culture - Final Enterococcus faecalis 07/23/23 17:36 Urine Catheterized - Yao Catheter Urine Culture - Final Enterococcus faecium 07/23/23 13:41 Blood - Venous Blood Culture - Final Enterococcus faecalis 07/23/23 13:41 Blood - Venous Blood Culture - Final Enterococcus faecalis 07/22/23 22:04 Blood - Venous Blood Culture - Final Enterococcus faecalis 07/22/23 21:47 Blood - Venous Blood Culture - Final Enterococcus faecalis 07/24/23 01:27 Sputum - Expectorated Gram Stain - Final 07/24/23 01:27 Sputum - Expectorated Sputum Culture - Final Procedures Date of Service Date of Service: 08/01/23 Assessment & Plan Assessment and plan (1) Hypotension: Status: Acute (2) Gram-positive bacteremia: Status: Acute (3) Chronic renal failure: Status: Acute (4) Acute kidney injury: Status: Acute Plan Advanced renal failure approaching end stage renal disease. Currently on maintenance hemodialysis. No signs of renal recovery. In view of the bacteremia the PermCath has been removed. s/p Catheter holiday for next 48 hours The blood cultures are negative ; we will reinsert PermCath. She will follow along with the team Time Spent With Patient Time: Total time managing care of this patient today ____ minutes. Progress Note: Quality Stroke Does the patient have a stroke diagnosis?: No
--- NOTE | 2023-07-28 11:20 | P.PNIM_ITS ---
Subjective Subjective Date of Service: 07/28/23 Interval History: Seen and evaluated this morning feels tired and weaker than before enlarging ascites no fever or chills Review of Systems Review of Systems: Yes all other systems are reviewed and are negative Physical Exam 2 Vital Signs: Vital Signs: Last Vital Signs Temp 97.7 F 07/28/23 07:36 Pulse 62 07/28/23 07:36 Resp 12 07/28/23 07:36 BP 94/56 L 07/28/23 07:36 Pulse Ox 96 07/28/23 07:36 O2 Del Method Room Air 07/28/23 07:36 BMI result Body Mass Index 25.6 Const: Other: Constitutional : Awake, interactive, not in distress, jaundiced Neck : Normal inspection, Supple Cardiovascular : RRR, no JVP, no lower extremity edema Respiratory : good bilateral air entry, no crackles, wheezes or rhonchi Gastrointestinal: soft, lax, Normal bowel sounds,moderate distended with moderate-large ascites, non-tender Skin : Warm, Dry Neurological : Alert & oriented x3, No focal deficit Objective Data Active Medications Bisacodyl (Bisacodyl 10 Mg Supp.Rect) 10 mg [place] DAILY PRN PRN Reason: Constipation Folic Acid (Folic Acid 1 Mg Tablet) 1 mg PO DAILY [facility] Last Admin: 07/28/23 08:49 Dose: 1 mg Documented By: JOHANA Guaifenesin (Guaifenesin 200 Mg/10 Ml 10 Ml Liquid) 10 ml PO Q4H PRN PRN Reason: Cough Hydromorphone HCl (Hydromorphone Hcl 0.5 Mg/0.5 Ml Syringe) 0.25 mg IVPUSH Q4H PRN; Protocol PRN Reason: Pain, Severe (Pain Scale 7-10) Last Admin: 07/27/23 13:10 Dose: 0.25 mg Documented By: JOHANA Vancomycin HCl 500 mg/ Sodium (Chloride) 110 mls @ 110 mls/hr IV ONCE ONE Stop: 07/23/23 13:06 Lactulose (Lactulose 20 Gm/30 Ml Solution) 20 gm PO DAILY [facility] Last Admin: 07/28/23 08:48 Dose: 20 gm Documented By: JOHANA Lidocaine (Lidocaine 4 % Patch Adh..Patch) 1 patch TRANSDERMA DAILY [facility]; Protocol Last Admin: 07/28/23 08:49 Dose: 1 patch Documented By: JOHANA Magnesium Hydroxide (Milk Of Magnesia 30 Ml Oral.Susp) 30 ml PO DAILY PRN PRN Reason: Constipation Magnesium Oxide (Magnesium Oxide 400 Mg Tablet) 400 mg PO DAILY [facility] Last Admin: 07/28/23 08:49 Dose: 400 mg Documented By: JOHANA Metoprolol Tartrate (Metoprolol Tartrate 12.5 Mg Halftab) 12.5 mg PO BID [facility]; Protocol Last Admin: 07/28/23 08:49 Dose: 12.5 mg Documented By: JOHANA Midodrine (Midodrine Hcl 5 Mg Tablet) 15 mg PO TIDWM [facility] Last Admin: 07/28/23 08:49 Dose: 15 mg Documented By: JOHANA Omeprazole (Omeprazole 40 Mg Capsule.Dr) 40 mg PO DAILY@0630 [facility] Last Admin: 07/28/23 05:24 Dose: 40 mg Documented By: MAILE Ondansetron HCl (Ondansetron Hcl 4 Mg/2 Ml Vial) 4 mg IVPUSH Q8H PRN PRN Reason: Nausea and Vomiting Last Admin: 07/26/23 03:39 Dose: 4 mg Documented By: MAILE Pharmacy Consult (Consult Rx Vancomycin Dosing) 1 each MISCELLANE DAILY PRN PRN Reason: Consult order Rifaximin (Rifaximin 550 Mg Tablet) 550 mg PO BID [facility] Last Admin: 07/28/23 08:49 Dose: 550 mg Documented By: JOHANA Sodium Biphosphate/Sodium Phosphate (Sodium Phosphate,[place]-Dibasic 133 Ml Enema) 118 ml [place] DAILY PRN PRN Reason: Constipation Sodium Chloride (0.9 % Sodium Chloride Flush 3 Ml Syringe) 3 ml IVFLUSH QSHIFT [facility] Last Admin: 07/28/23 08:48 Dose: 3 ml Documented By: JOHANA Thiamine HCl (Thiamine Hcl 100 Mg Tablet) 100 mg PO DAILY [facility] Last Admin: 07/28/23 08:49 Dose: 100 mg Documented By: JOHANA Labs 07/28/23 05:18 07/28/23 05:18 Labs: Laboratory Results - last 24 hr 07/23/23 07/28/23 17:36 05:18 MCV 92.9 MCH 33.5 H MCHC 36.0 H RDW 19.0 H Plt Count 76 L MPV 12.3 Absolute Nucleated RBC 0.000 Nucleated RBC % (auto) 0.0 Anion Gap 19 Estim Creat Clear Calc 8.8 Estimated GFR 8 Random Glucose 136 H Calcium 8.8 Ur Strep pneumoniae Ag Detected A Microbiology Microbiology Results: Microbiology 07/26/23 15:30 Catheter Tip Culture - Preliminary Catheter Tip - Other No growth to date. 07/22/23 23:22 Gram Stain - Final Ascites Fluid Routine Culture - Final No growth after 2 days Anaerobic Culture - Final NO GROWTH AFTER 5 DAYS 07/27/23 05:24 Blood Culture - Preliminary Blood - Venous No growth after 24 hours. 07/27/23 05:24 Blood Culture - Preliminary Blood - Venous No growth after 24 hours. 07/24/23 15:57 Blood Culture - Preliminary Blood - Venous No growth after 48 hours. 07/24/23 15:57 Blood Culture - Final Blood - Venous Enterococcus faecalis Assessment and Plan (1) Gram-positive bacteremia: Status: Acute (2) Chronic renal failure: Status: Acute (3) Severe sepsis: Status: Acute Plan 63F PMH alcoholic cirrhosis complicated by portal vein hypertension and ascites, hepatic encephalopathy on lactulose and rifaximin, alcohol use disorder, gout, hypertension, GERD presented with fevers Sepsis due to E.Faecalis bacteremia likely due to infected hd catheter continue Vancomycin 3rd cultures from 07/24/23 growing 03/01 Had catheter holiday. Cx negative [address] new Permacath per nephrology possible pneumonia less likely, will dc rocephin possible UTI growing E.faecium, no need for Tx per ID Hypotension, chronic not related to sepsis, but rather hypovolemia from third spacing continue midodrine BRBPR inr 2.0, give 5mg vitamin k x 1 now dc octreotide day 3 finished H/H baseline and stable Monitor for now, GI consult- pt gi no scope at this time, consider once more stable HRS/ESRD on HD TThSat Line break for 48 hours, nephro following Decompensated hepatic cirrhosis complicated by ascites, portal vein hypertension. She is NOT a candidate for transplant Cholestatic phase now with chronic T.Bili evevation in the 30s. INR 2.0, vitamin K as abvoe. No steroids given recent/current GIB to do therapeutic paracentesis tomorrow lactulose, rifaximin chronic thrombocytopenia due to cirrhosis DVT prophylaxis- SCPs due to gi bleed Full code reason for continued hospitalization: bacteremia Quality Stroke Does the patient have a stroke diagnosis?: No VTE Prior VTE?: No VTE Risk Level:: Medical - moderate - high VTE Device Contraindication: N/A - Device Ordered VTE Drug Contraindication: Treatment Not Indicated
[2023-07-28 11:27] VITALS: BP 95/52; PULSE 57; RESP 18; TEMP 36.6; O2SAT 99
[2023-07-28] MEDS: Lidocaine HCl 1 % MPF 5 ML VIAL SUBCUT (11:36)
[2023-07-28] MEDS: HYDROmorphone HCl 0.5 MG/0.5 ML SYRINGE 0.25 MG IVPUSH ×2 (11:53→18:24)
[2023-07-28 14:41] LABS: Vancomycin Random 13.9 mcg/mL (15-20)
[2023-07-28] MEDS: vancomycin HCL 500 MG in 0.9 % Sodium Chloride 100 ML 110 MG IV (15:52)
[2023-07-28 16:00] VITALS: BP 102/68; PULSE 65; RESP 15; TEMP 36.4; O2SAT 94
--- NOTE | 2023-07-28 16:06 | MHC.CM.PN ---
Addendum entered by Gillian Herrera RN 07/29/23 14:04: cm contacted hcp Julissa at 1:18pm, Julissa agreeable to dc plan for tomorrow 07/30/23 Original Note: cm met w/pts new hcp Julissa Sunshine [phone], she is previous hcp's dtr however has medical issues and is unable to act as hcp. copy uploaded to [facility] and placed in paper chart, hospitalist aware.
[2023-07-28] MEDS: Albumin Human 25 % 100 ML IV ×2 (17:00→18:20)
[2023-07-28 19:00] VITALS: RESP 18
[2023-07-28 19:27] VITALS: BP 95/52; PULSE 51; RESP 18; TEMP 36; O2SAT 96
[2023-07-29 03:32] VITALS: BP 99/61; PULSE 58; RESP 16; TEMP 36.2; O2SAT 100
[2023-07-29 06:48] LABS: Creatinine Clr Calc Pharmacy 7.9; Estimated Glomerular Filt Rate 7
[2023-07-29 07:21] VITALS: BP 92/48; PULSE 70; RESP 18; TEMP 36.3; O2SAT 99
[2023-07-29] MEDS: Midodrine HCl 5 MG TABLET 15 MG PO ×3 (08:14→17:54)
[2023-07-29] MEDS: rifAXIMin 550 MG TABLET PO ×2 (08:14→20:07)
[2023-07-29] MEDS: Lactulose 20 GM/30 ML SOLUTION PO (08:14)
[2023-07-29] MEDS: Folic Acid 1 MG TABLET PO (08:15)
[2023-07-29] MEDS: Lidocaine 4 % Patch ADH..PATCH 1 PATCH TRANSDERMA (08:15)
[2023-07-29] MEDS: Thiamine HCL 100 MG TABLET PO (08:15)
[2023-07-29] MEDS: Magnesium Oxide 400 MG TABLET PO (08:15)
[2023-07-29] MEDS: 0.9 % Sodium Chloride Flush 3 ML SYRINGE IVFLUSH ×3 (08:18→20:17)
--- NOTE | 2023-07-29 10:23 | P.PNNP_ITS ---
Subjective Subjective Date of Service: 08/01/23 Interval history: Events noted. No waiting for PermCath Physical Exam 2 Vital Signs: Vital Signs: Last Vital Signs Temp 97.4 F 07/29/23 07:21 Pulse 70 07/29/23 07:21 Resp 18 07/29/23 07:21 BP 92/48 L 07/29/23 07:21 Pulse Ox 99 07/29/23 07:21 O2 Del Method Room Air 07/29/23 07:21 BMI result Body Mass Index 25.6 Const: Other: Constitutional : Awake, interactive, not in distress, jaundiced Neck : Normal inspection, Supple Cardiovascular : RRR, no JVP, no lower extremity edema Respiratory : good bilateral air entry, no crackles, wheezes or rhonchi Gastrointestinal: soft, lax, Normal bowel sounds,moderate distended with moderate-large ascites, non-tender Skin : Warm, Dry Neurological : Alert & oriented x3, No focal deficit Objective Data Labs 08/01/23 05:42 07/31/23 06:27 Labs: Laboratory Results - last 24 hr 07/28/23 07/29/23 14:06 05:49 Creatinine 5.77 H* Estim Creat Clear Calc 7.9 Estimated GFR 7 Random Vancomycin 13.9 L Microbiology Microbiology Results: Microbiology 07/26/23 15:30 Catheter Tip - Other Catheter Tip Culture - Preliminary No growth to date. 07/27/23 05:24 Blood - Venous Blood Culture - Preliminary No growth after 48 hours. 07/27/23 05:24 Blood - Venous Blood Culture - Preliminary No growth after 48 hours. 07/22/23 23:22 Ascites Fluid Gram Stain - Final 07/22/23 23:22 Ascites Fluid Routine Culture - Final No growth after 2 days 07/22/23 23:22 Ascites Fluid Anaerobic Culture - Final NO GROWTH AFTER 5 DAYS 07/24/23 15:57 Blood - Venous Blood Culture - Preliminary No growth after 48 hours. 07/24/23 15:57 Blood - Venous Blood Culture - Final Enterococcus faecalis 07/23/23 17:36 Urine Catheterized - Yao Catheter Urine Culture - Final Enterococcus faecium 07/23/23 13:41 Blood - Venous Blood Culture - Final Enterococcus faecalis 07/23/23 13:41 Blood - Venous Blood Culture - Final Enterococcus faecalis 07/22/23 22:04 Blood - Venous Blood Culture - Final Enterococcus faecalis 07/22/23 21:47 Blood - Venous Blood Culture - Final Enterococcus faecalis 07/24/23 01:27 Sputum - Expectorated Gram Stain - Final 07/24/23 01:27 Sputum - Expectorated Sputum Culture - Final Procedures Date of Service Date of Service: 08/01/23 Assessment & Plan Assessment and plan (1) Hypotension: Status: Acute (2) Gram-positive bacteremia: Status: Acute (3) Chronic renal failure: Status: Acute (4) Acute kidney injury: Status: Acute Plan Advanced renal failure approaching end stage renal disease. Currently on maintenance hemodialysis. No signs of renal recovery. In view of the bacteremia the PermCath has been removed. s/p Catheter holiday for next 48 hours The blood cultures are negative ; await PermCath. HD postponed creatinine Vancomycin 750 mg post HD x5 more doses. We will arrange for this if she gets discharged She will follow along with the team Time Spent With Patient Time: Total time managing care of this patient today ____ minutes. Progress Note: Quality Stroke Does the patient have a stroke diagnosis?: No
--- NOTE | 2023-07-29 10:31 | PCN2_ITS ---
Brief Operative Note Date of procedure: 07/29/23 Pre-op diagnosis: Needs [facility] access for dialysis. Blood cultures x 48 hr negative Post-op diagnosis: same Procedure: Left IJ 23 cm Permcath placed using US and Fluoro. Tip at cavoatrial junction. Ok for use. Anesthesia: local (50 mcg fentanyl) Condition: stable Disposition: floor
[2023-07-29 11:24] VITALS: BP 100/52; PULSE 56; RESP 16; TEMP 36.3; O2SAT 99
--- NOTE | 2023-07-29 11:54 | P.PNIM_ITS ---
Subjective Subjective Date of Service: 07/29/23 Interval History: Seen and evaluated this morning feels better this morning but overall weak removed 5 L from ascites Plan for Permacath placement today no fever or chills Review of Systems Review of Systems: Yes all other systems are reviewed and are negative Physical Exam 2 Vital Signs: Vital Signs: Last Vital Signs Temp 97.3 F 07/29/23 11:24 Pulse 56 07/29/23 11:24 Resp 16 07/29/23 11:24 BP 100/52 L 07/29/23 11:24 Pulse Ox 99 07/29/23 11:24 O2 Del Method Room Air 07/29/23 11:24 BMI result Body Mass Index 25.6 Const: Other: Constitutional : Awake, interactive, not in distress, jaundiced Neck : Normal inspection, Supple Cardiovascular : RRR, no JVP, no lower extremity edema Respiratory : good bilateral air entry, no crackles, wheezes or rhonchi Gastrointestinal: soft, lax, Normal bowel sounds, mild distended with no significant ascites, non-tender Skin : Warm, Dry Neurological : Alert & oriented x3, No focal deficit Objective Data Active Medications Bisacodyl (Bisacodyl 10 Mg Supp.Rect) 10 mg [place] DAILY PRN PRN Reason: Constipation Folic Acid (Folic Acid 1 Mg Tablet) 1 mg PO DAILY [facility] Last Admin: 07/29/23 08:15 Dose: 1 mg Documented By: MIRTA Guaifenesin (Guaifenesin 200 Mg/10 Ml 10 Ml Liquid) 10 ml PO Q4H PRN PRN Reason: Cough Hydromorphone HCl (Hydromorphone Hcl 0.5 Mg/0.5 Ml Syringe) 0.25 mg IVPUSH Q4H PRN; Protocol PRN Reason: Pain, Severe (Pain Scale 7-10) Last Admin: 07/28/23 18:24 Dose: 0.25 mg Documented By: BELINDA Vancomycin HCl 500 mg/ Sodium (Chloride) 110 mls @ 110 mls/hr IV ONCE ONE Stop: 07/29/23 18:59 Lactulose (Lactulose 20 Gm/30 Ml Solution) 20 gm PO DAILY [facility] Last Admin: 07/29/23 08:14 Dose: 20 gm Documented By: MIRTA Lidocaine (Lidocaine 4 % Patch Adh..Patch) 1 patch TRANSDERMA DAILY [facility]; Protocol Last Admin: 07/29/23 08:15 Dose: 1 patch Documented By: MIRTA Magnesium Hydroxide (Milk Of Magnesia 30 Ml Oral.Susp) 30 ml PO DAILY PRN PRN Reason: Constipation Magnesium Oxide (Magnesium Oxide 400 Mg Tablet) 400 mg PO DAILY [facility] Last Admin: 07/29/23 08:15 Dose: 400 mg Documented By: MIRTA Metoprolol Tartrate (Metoprolol Tartrate 12.5 Mg Halftab) 12.5 mg PO BID [facility]; Protocol Last Admin: 07/29/23 08:23 Dose: Not Given Documented By: MIRTA Non-Admin Reason: Physician Held Med Comments: BP 92/48. Midodrine (Midodrine Hcl 5 Mg Tablet) 15 mg PO TIDWM [facility] Last Admin: 07/29/23 08:14 Dose: 15 mg Documented By: MIRTA Omeprazole (Omeprazole 40 Mg Capsule.Dr) 40 mg PO DAILY@0630 [facility] Last Admin: 07/29/23 06:25 Dose: Not Given Documented By: CK Non-Admin Reason: Patient Refused Ondansetron HCl (Ondansetron Hcl 4 Mg/2 Ml Vial) 4 mg IVPUSH Q8H PRN PRN Reason: Nausea and Vomiting Last Admin: 07/26/23 03:39 Dose: 4 mg Documented By: MAILE Pharmacy Consult (Consult Rx Vancomycin Dosing) 1 each MISCELLANE DAILY PRN PRN Reason: Consult order Rifaximin (Rifaximin 550 Mg Tablet) 550 mg PO BID [facility] Last Admin: 07/29/23 08:14 Dose: 550 mg Documented By: MIRTA Sodium Biphosphate/Sodium Phosphate (Sodium Phosphate,[place]-Dibasic 133 Ml Enema) 118 ml [place] DAILY PRN PRN Reason: Constipation Sodium Chloride (0.9 % Sodium Chloride Flush 3 Ml Syringe) 3 ml IVFLUSH QSHIFT [facility] Last Admin: 07/29/23 08:18 Dose: 3 ml Documented By: MIRTA Thiamine HCl (Thiamine Hcl 100 Mg Tablet) 100 mg PO DAILY [facility] Last Admin: 07/29/23 08:15 Dose: 100 mg Documented By: MIRTA Labs 07/28/23 05:18 07/29/23 05:49 Labs: Laboratory Results - last 24 hr 07/28/23 07/29/23 14:06 05:49 Estim Creat Clear Calc 7.9 Estimated GFR 7 Random Vancomycin 13.9 L Microbiology Microbiology Results: Microbiology 07/26/23 15:30 Catheter Tip Culture - Preliminary Catheter Tip - Other No growth to date. 07/27/23 05:24 Blood Culture - Preliminary Blood - Venous No growth after 48 hours. 07/27/23 05:24 Blood Culture - Preliminary Blood - Venous No growth after 48 hours. 07/22/23 23:22 Gram Stain - Final Ascites Fluid Routine Culture - Final No growth after 2 days Anaerobic Culture - Final NO GROWTH AFTER 5 DAYS Assessment and Plan (1) Hypotension: Status: Acute (2) Gram-positive bacteremia: Status: Acute (3) Severe sepsis: Status: Acute (4) Chronic renal failure: Status: Acute (5) Acute hemodialysis patient: Status: Acute Plan 63F PMH alcoholic cirrhosis complicated by portal vein hypertension and ascites, hepatic encephalopathy on lactulose and rifaximin, alcohol use disorder, gout, hypertension, GERD presented with fevers Sepsis due to E.Faecalis bacteremia likely due to infected hd catheter continue Vancomycin 3rd cultures from 07/24/23 growing 03/01 Had catheter holiday. Cx negative [address] new Permacath today To take 750 mg Vancomycin with each dialysis to finish 2 weeks of IV Abx. Bacterurea growing E.faecium, no need for Tx per ID Hypotension, chronic not related to sepsis, but rather hypovolemia from third spacing continue midodrine BRBPR dc octreotide day 3 finished H/H baseline and stable Monitor for now, GI consult- pt gi no scope at this time, consider once more stable HRS/ESRD on HD TThSat Line break for 48 hours, nephro following Decompensated hepatic cirrhosis complicated by ascites, portal vein hypertension. She is NOT a candidate for transplant Cholestatic phase now with chronic T.Bili evevation in the 30s. INR 2.0, vitamin K as abvoe. No steroids given recent/current GIB to do therapeutic paracentesis tomorrow lactulose, rifaximin chronic thrombocytopenia due to cirrhosis DVT prophylaxis- SCPs due to gi bleed Full code reason for continued hospitalization: bacteremia, need of dialysis Quality Stroke Does the patient have a stroke diagnosis?: No VTE Prior VTE?: No VTE Risk Level:: Medical - moderate - high VTE Device Contraindication: N/A - Device Ordered VTE Drug Contraindication: Treatment Not Indicated
--- NOTE | 2023-07-29 14:44 | P.PNID_ITS ---
Subjective Subjective Date of Service: 07/28/23 Critical Care Time (minutes): 15 Comment: she has had HD catheter removed,new permacath today Objective Data Labs 07/28/23 05:18 07/29/23 05:49 Labs: Laboratory Results - last 24 hr 07/29/23 05:49 Creatinine 5.77 H* Estim Creat Clear Calc 7.9 Estimated GFR 7 Microbiology Microbiology Results: Microbiology 07/26/23 15:30 Catheter Tip - Other Catheter Tip Culture - Preliminary No growth to date. 07/27/23 05:24 Blood - Venous Blood Culture - Preliminary No growth after 48 hours. 07/27/23 05:24 Blood - Venous Blood Culture - Preliminary No growth after 48 hours. 07/22/23 23:22 Ascites Fluid Gram Stain - Final 07/22/23 23:22 Ascites Fluid Routine Culture - Final No growth after 2 days 07/22/23 23:22 Ascites Fluid Anaerobic Culture - Final NO GROWTH AFTER 5 DAYS 07/24/23 15:57 Blood - Venous Blood Culture - Preliminary No growth after 48 hours. 07/24/23 15:57 Blood - Venous Blood Culture - Final Enterococcus faecalis 07/23/23 17:36 Urine Catheterized - Yao Catheter Urine Culture - Final Enterococcus faecium 07/23/23 13:41 Blood - Venous Blood Culture - Final Enterococcus faecalis 07/23/23 13:41 Blood - Venous Blood Culture - Final Enterococcus faecalis 07/22/23 22:04 Blood - Venous Blood Culture - Final Enterococcus faecalis 07/22/23 21:47 Blood - Venous Blood Culture - Final Enterococcus faecalis 07/24/23 01:27 Sputum - Expectorated Gram Stain - Final 07/24/23 01:27 Sputum - Expectorated Sputum Culture - Final Physical Exam 2 Vital Signs: Vital Signs: Last Vital Signs Temp 97.3 F 07/29/23 11:24 Pulse 56 07/29/23 11:24 Resp 16 07/29/23 11:24 BP 100/52 L 07/29/23 11:24 Pulse Ox 99 07/29/23 11:24 O2 Del Method Room Air 07/29/23 11:24 BMI result Body Mass Index 25.6 Const: General: cooperative HEENT: Head: Yes normal to inspection Face and sinus: Yes normal facial exam Mouth: Normal oral and palatal mucosa present Teeth and gingiva: d entition normal Eyes: General: appearance normal, both eyes and all related structures P upils: Equal, round and reactive pupils present Resp: Effort & Inspection: normal respiratory effort Cardio: Rate: regular rate Rhythm: regular rhythm GI: Palpation (GI): Soft to palpation and nontender : General: Yes no CVA tenderness Back/Spine/Pelvis: Back: no CVA tenderness Skin: General skin exam: no rashes or lesions noted Neuro: General: moves all extremities Cranial nerves: Yes Equal, round and reactive pupils present Extrem: General: Yes normal to inspection Psych: Appearance: grossly normal Assessment and Plan Assessment and plan (1) Acute hemodialysis patient: Status: Acute (2) Severe sepsis: Status: Acute Plan Enterococcus faecalis bacteremia Clear and now new permacath. Would continue Vancomycin 750 post HD through 08/12. No not give rx Enterococcus faecium urine at this time likely contaminant. Time Spent With Patient Time: Total time managing care of this patient today ____ minutes.
[2023-07-29] MEDS: HYDROmorphone HCl 0.5 MG/0.5 ML SYRINGE 0.25 MG IVPUSH (15:13)
[2023-07-29 17:48] VITALS: BP 113/65; PULSE 72; RESP 18; TEMP 36.2; O2SAT 99
--- NOTE | 2023-07-29 18:55 | HO.SKINPHOTO ---
Location: Category: Stage: Length: Width: Depth: cm Location: Category: Stage: Length: Width: Depth: cm Location: Category: Stage: Length: Width: Depth: cm Location: Category: Stage: Length: Width: Depth: cm Location: Category: Stage: Length: Width: Depth: cm Location: Category: Stage: Length: Width: Depth: cm LEFT ARM SKIN TEAR
[2023-07-29 18:59] LABS: Vancomycin Random 15.1 mcg/mL (15-20)
[2023-07-29 19:50] VITALS: BP 100/56; PULSE 67; RESP 18; TEMP 36.3; O2SAT 96
[2023-07-30] VITALS (8 sets, daily range): BP systolic 90–104; BP diastolic 51–56; PULSE 67–70; RESP 16–18; TEMP 36–36.6; O2SAT 97–99
[2023-07-30] MEDS: Omeprazole 40 MG CAPSULE.DR PO (06:25)
[2023-07-30 06:27] LABS: Creatinine Clr Calc Pharmacy 11.6; Estimated Glomerular Filt Rate 12
[2023-07-30] MEDS: HYDROmorphone HCl 0.5 MG/0.5 ML SYRINGE 0.25 MG IVPUSH ×2 (07:43→22:52)
[2023-07-30] MEDS: 0.9 % Sodium Chloride Flush 3 ML SYRINGE IVFLUSH ×3 (08:26→20:15)
[2023-07-30] MEDS: rifAXIMin 550 MG TABLET PO ×2 (08:26→20:14)
[2023-07-30] MEDS: Magnesium Oxide 400 MG TABLET PO (08:26)
[2023-07-30] MEDS: Midodrine HCl 5 MG TABLET 15 MG PO ×3 (08:26→17:24)
[2023-07-30] MEDS: Lidocaine 4 % Patch ADH..PATCH 1 PATCH TRANSDERMA (08:29)
[2023-07-30] MEDS: Folic Acid 1 MG TABLET PO (08:29)
[2023-07-30] MEDS: Thiamine HCL 100 MG TABLET PO (08:29)
[2023-07-30] MEDS: Lactulose 20 GM/30 ML SOLUTION PO (08:30)
--- NOTE | 2023-07-30 11:52 | PM.DS ---
DS: Providers Provider Date of Service: 07/30/23 Date of admission: 07/23/23 09:24 Primary care physician: Satish Sharma MD Consults: 07/23/23 09:23 Consult to Infectious Diseases Routine Consulting Provider: [facility] Reason for consultation: probable strep bacteremia, ?line sepsis 07/23/23 13:34 Consult to Gastroenterology Routine Consulting Provider: José Nicholas Reason for consultation: decompensated cirrhosis, BRBPR DS: Diagnosis Discharge Diagnosis (1) Acute hemodialysis patient: Status: Acute (2) Severe sepsis: Status: Acute (3) Enterococcus faecalis infection: Status: Acute (4) Bacteremia due to Enterococcus: Status: Acute (5) CLABSI (central line-associated bloodstream infection): Status: Acute (6) Hypotension: Status: Acute (7) Chronic renal failure: Status: Acute (8) Cirrhosis: Status: Acute DS: Summary Hospital Course Hospital Course: Admission note HPI 63-year-old female with history of alcoholic cirrhosis complicated by portal vein hypertension and ascites, hepatic encephalopathy on lactulose and rifaximin, alcohol use disorder, gout, hypertension, GERD presented to the ED yesterday evening from SNF due to fevers of 101.8 and cough. While at the facility, was also noted to be tachypneic with heart rate of 121. The patient is a vague historian and is unable to provide much history. Believes she has had a cough for the last week. She was just discharged from our facility 3 days ago after being hospitalized July 03- for acute decompensated cirrhosis and HRS started on HD TThSat (last dialyzed ), permacath in place R chest, as well as hospitalization 06/05-06/20 for acute alcoholic hepatitis though prednisone had to be discontinued due to GI bleed. Last alcohol consumption was on Tuesday, she has not a liver transplant candidate. Since arrival, patient febrile to 100.4 and tachycardic to 124. She was hypotensive to 86/47 with recovery to 126/72 on admission following IV fluids. She has a leukocytosis of 12.8. Stable, chronic normocytic anemia with H/H 9.5/25.8%, chronic thrombocytopenia with PLT 57. Creatinine 5.15, BUN 21. Sodium 133, chloride 94, electrolytes otherwise normal. Lactic acid on admission 2.9 --> 2.8--> 2.0. Total bilirubin 33.9, direct bilirubin 24.4, AST 53, ALT 8. Initial troponin 25, repeat pending. CRP 8.30, PCT pending. PT 24.9, INR 2.0. Diagnostic paracentesis performed in the ED, not indicative of SBP. RPP negative. CT abdomen/pelvis shows cirrhotic liver with large volume ascites and soft tissue anasarca. There is also mild right colonic wall thickening likely secondary to portal colopathy. Chest CT negative for lung mass or suspicious spiculated nodules. However there is a non solid patchy ground-glass opacity in the left lower lobe measuring 1.4 x 1.2 cm possibly representing patchy infiltrates versus ground-glass nodule, repeat CT recommended every 2-5 years. There is also noted mild interstitial lung disease, incompletely healed right lateral rib fractures as well as other chronic findings. She does have Yao catheter in place and without any urine output noted since placement. She does produce urine at baseline. IV fluids discontinued following 2L administration. Hospital course Sepsis due to E.Faecalis bacteremia likely due to infected hd catheter continue Vancomycin 3rd cultures from 07/24/23 growing 03/01 Had catheter holiday. Cx negative [address] new Permacath today To take 750 mg Vancomycin with each dialysis to finish 2 weeks of IV Abx. Bacterurea growing E.faecium, no need for Tx per ID Hypotension, chronic not related to sepsis, but rather hypovolemia from third spacing continue midodrine BRBPR dc octreotide day 3 finished H/H baseline and stable Monitor for now, GI consult- pt gi no scope at this time, consider once more stable HRS/ESRD on HD TThSat Line break for 48 hours, nephro following Decompensated hepatic cirrhosis complicated by ascites, portal vein hypertension. She is NOT a candidate for transplant Cholestatic phase now with chronic T.Bili evevation in the 30s. INR 2.0, vitamin K as abvoe. No steroids given recent/current GIB to do therapeutic paracentesis tomorrow lactulose, rifaximin Discharge plan Fluid restriction to 1.5L daily Continue Midodrine 3 times daily Ensure as supplement Continue Vancomycin 750 mg post dialysis until 08/12. Physical Exam Vital Signs: Vital Signs: Last Vital Signs Temp 97.9 F 07/30/23 07:24 Pulse 68 07/30/23 07:24 Resp 16 07/30/23 07:24 BP 95/53 L 07/30/23 07:24 Pulse Ox 98 07/30/23 07:24 O2 Del Method Room Air 07/30/23 07:24 BMI result Body Mass Index 25.6 DS: Data Data Completed and Pending Completed studies during hospitalization [Text1]: Procedures Drainage of Peritoneal Cavity with Drainage Device, Percutaneous Approach (07/04/23) Drainage of Peritoneal Cavity, Percutaneous Approach (06/06/23) Insertion of Infusion Device into Superior Vena Cava, Percutaneous Approach (07/04/23) Insertion of Tunneled Vascular Access Device into Chest Subcutaneous Tissue and Fascia, Percutaneous Approach (07/04/23) Performance of Urinary Filtration, Intermittent, Less than 6 Hours Per Day (07/04/23) Transfusion of Nonautologous Frozen Plasma into Peripheral Vein, Percutaneous Approach (07/04/23) Transfusion of Nonautologous Platelets into Peripheral Vein, Percutaneous Approach (06/06/23) Transfusion of Nonautologous Red Blood Cells into Peripheral Vein, Percutaneous Approach (07/04/23) Ultrasonography of Superior Vena Cava, Guidance (07/04/23) Labs on day of discharge: Laboratory Results - last 24 hr 07/29/23 07/30/23 18:36 05:48 Hold Purple Top SEE NOTE Creatinine 3.92 H Estim Creat Clear Calc 11.6 Estimated GFR 12 Random Vancomycin 15.1 Preliminary micro results at discharge 07/27/23 05:24 Blood Culture - Preliminary Blood - Venous No growth after 48 hours. 07/27/23 05:24 Blood Culture - Preliminary Blood - Venous No growth after 48 hours. Discharge Plan Discharge Anticipated Discharge Date/Time: 07/30/23 11:44 Patient Disposition: Xfer SNF Discharge Diagnosis: Enterococcus Faecalis bactreremia Dialysis catheter infection Referrals: [facility] [Outside] - 1 Day (SHORT TERM REHAB) Satish Sharma MD [Primary Care Provider] - 1 Week Discharge Medications: New vancomycin 750 mg recon soln 750 mg IV .PostHD Continued magnesium oxide 400 mg (241.3 mg magnesium) Tablet 400 mg PO DAILY 300 Days Qty: 300 0RF lactulose 20 gram/30 mL Solution 20 g PO DAILY 30 Days Qty: 900 0RF metoprolol tartrate 25 mg tablet 12.5 mg PO BID 30 Days Qty: 30 0RF omeprazole 40 mg Capsule,Delayed Release(Dr/Ec) 40 mg PO DAILY@0630 30 Days Qty: 30 0RF folic acid 1 mg Tablet 1 mg PO DAILY 30 Days Qty: 30 0RF thiamine mononitrate (vit B1) 100 mg Tablet 100 mg PO DAILY 30 Days Qty: 30 0RF rifaximin 550 mg Tablet 550 mg PO BID midodrine 10 mg Tablet 10 mg PO TID Qty: 90 0RF bisacodyl [Dulcolax (bisacodyl)] 10 mg Suppository 10 mg AR DAILY PRN (Reason: Constipation) Fleet Enema 19-7 gram/118 mL Enema 118 ml AR DAILY PRN (Reason: Constipation) magnesium hydroxide [Milk of Magnesia] 400 mg/5 mL Suspension 30 ml PO DAILY PRN (Reason: Constipation) Diet: Low salt diet Activity on Discharge: As tolerated Stand Alone Forms: Patient Portal Discharge page Print Language: Vietnamese Care Plan Goals: You were treated for blood infection of Enterococcus bacteria as a result of dialysis line infection. Fluid restriction to 1.5L daily Continue Midodrine 3 times daily Ensure as supplement Continue Vancomycin 750 mg post dialysis until 08/12. Health Concerns: Read below Plan of Treatment: Read below Assessment: Read below
--- NOTE | 2023-07-30 12:00 | PC.NURSE ---
HD cath noted to bleeding dressing saturated and staining on gown.Md Ku notified at bedside to see pt . dressing taken down noted oozing new sterile dressing applied with pressure . will monitor . i
--- NOTE | 2023-07-30 12:12 | P.PNIM_ITS ---
Subjective Subjective Date of Service: 07/30/23 Interval History: Seen and evaluated this morning able to walk in [place] with nursing staff She was supposed to go home today but started to bleed from the site of new permacath no fever or chills Review of Systems Review of Systems: Yes all other systems are reviewed and are negative Physical Exam 2 Vital Signs: Vital Signs: Last Vital Signs Temp 97.9 F 07/30/23 07:24 Pulse 68 07/30/23 07:24 Resp 16 07/30/23 07:24 BP 95/53 L 07/30/23 07:24 Pulse Ox 98 07/30/23 07:24 O2 Del Method Room Air 07/30/23 07:24 BMI result Body Mass Index 25.6 Const: Other: Constitutional : Awake, interactive, not in distress, jaundiced Neck : Normal inspection, Supple Cardiovascular : RRR, no JVP, no lower extremity edema Respiratory : good bilateral air entry, no crackles, wheezes or rhonchi Gastrointestinal: soft, lax, Normal bowel sounds, mild distended with no significant ascites, non-tender Skin : Warm, Dry, PERMAcath left chest wall saturated gauzes with blood, dripping blood. Neurological : Alert & oriented x3, No focal deficit Objective Data Active Medications Bisacodyl (Bisacodyl 10 Mg Supp.Rect) 10 mg [place] DAILY PRN PRN Reason: Constipation Folic Acid (Folic Acid 1 Mg Tablet) 1 mg PO DAILY [facility] Last Admin: 07/30/23 08:29 Dose: 1 mg Documented By: DAVID Guaifenesin (Guaifenesin 200 Mg/10 Ml 10 Ml Liquid) 10 ml PO Q4H PRN PRN Reason: Cough Hydromorphone HCl (Hydromorphone Hcl 0.5 Mg/0.5 Ml Syringe) 0.25 mg IVPUSH Q4H PRN; Protocol PRN Reason: Pain, Severe (Pain Scale 7-10) Last Admin: 07/30/23 07:43 Dose: 0.25 mg Documented By: DAVID Vancomycin HCl 500 mg/ Sodium (Chloride) 110 mls @ 110 mls/hr IV ONCE ONE Stop: 07/29/23 18:59 Lactulose (Lactulose 20 Gm/30 Ml Solution) 20 gm PO DAILY [facility] [place] Last Admin: 07/30/23 08:30 Dose: 20 gm Documented By: DAVID Lidocaine (Lidocaine 4 % Patch Adh..Patch) 1 patch TRANSDERMA DAILY [facility]; Protocol Last Admin: 07/30/23 08:29 Dose: 1 patch Documented By: DAVID Magnesium Hydroxide (Milk Of Magnesia 30 Ml Oral.Susp) 30 ml PO DAILY PRN PRN Reason: Constipation Magnesium Oxide (Magnesium Oxide 400 Mg Tablet) 400 mg PO DAILY [facility] [place] Last Admin: 07/30/23 08:26 Dose: 400 mg Documented By: DAVID Metoprolol Tartrate (Metoprolol Tartrate 12.5 Mg Halftab) 12.5 mg PO BID [facility]; Protocol Last Admin: 07/30/23 08:28 Dose: Not Given Documented By: DAVID Non-Admin Reason: Decreased Blood Pressure Midodrine (Midodrine Hcl 5 Mg Tablet) 15 mg PO TIDWM [facility] Last Admin: 07/30/23 08:26 Dose: 15 mg Documented By: DAVID Omeprazole (Omeprazole 40 Mg Capsule.Dr) 40 mg PO DAILY@30 [facility] [place] Last Admin: 07/30/23 06:25 Dose: 40 mg Documented By: MYRNA Ondansetron HCl (Ondansetron Hcl 4 Mg/2 Ml Vial) 4 mg IVPUSH Q8H PRN PRN Reason: Nausea and Vomiting Last Admin: 07/26/23 03:39 Dose: 4 mg Documented By: MAILE Pharmacy Consult (Consult Rx Vancomycin Dosing) 1 each [place]IS[place] DAILY PRN PRN Reason: Consult order Rifaximin (Rifaximin 550 Mg Tablet) 550 mg PO BID [facility] [place] Last Admin: 07/30/23 08:26 Dose: 550 mg Documented By: DAVID Sodium Biphosphate/Sodium Phosphate (Sodium Phosphate,[place]-Dibasic 133 Ml Enema) 118 ml [place] DAILY PRN PRN Reason: Constipation Sodium Chloride (0.9 % Sodium Chloride Flush 3 Ml Syringe) 3 ml IVFLUSH QSHIFT [facility] [place] Last Admin: 07/30/23 08:26 Dose: 3 ml Documented By: DAVID Thiamine HCl (Thiamine Hcl 100 Mg Tablet) 100 mg PO DAILY [facility] [place] Last Admin: 07/30/23 08:29 Dose: 100 mg Documented By: DAVID Labs 07/28/23 05:18 07/30/23 05:48 Labs: Laboratory Results - last 24 hr 07/29/23 07/30/23 18:36 05:48 Hold Purple Top SEE NOTE Estim Creat Clear Calc 11.6 Estimated GFR 12 Random Vancomycin 15.1 Microbiology Microbiology Results: Microbiology 07/26/23 15:30 Catheter Tip Culture - Final Catheter Tip - Other No growth after 3 days. 07/24/23 15:57 Blood Culture - Final Blood - Venous No growth after 5 days. Assessment and Plan (1) CLABSI (central line-associated bloodstream infection): Status: Acute (2) Bacteremia due to Enterococcus: Status: Acute (3) Hypotension: Status: Acute (4) Hemorrhage from dialysis catheter: Status: Acute Plan 63F PMH alcoholic cirrhosis complicated by portal vein hypertension and ascites, hepatic encephalopathy on lactulose and rifaximin, alcohol use disorder, gout, hypertension, GERD presented with fevers acute dialysis catheter bleeding bleeding at site of permacath local measures, secure and pressure give Vit K IV IR consult to evaluate Sepsis due to E.Faecalis bacteremia likely due to infected hd catheter continue Vancomycin post dialysis cultures from 07/24/23 Had catheter holiday. Cx negative 24 hours. new Permacath placed and tolerated dialysis session To take 750 mg Vancomycin with each dialysis to finish 2 weeks of IV Abx. Bacterurea growing E.faecium, no need for Tx per ID Hypotension, chronic not related to sepsis, but rather hypovolemia from third spacing continue midodrine BRBPR dc octreotide day 3 finished H/H baseline and stable Monitor for now, GI consult- pt gi no scope at this time, consider once more stable HRS/ESRD on HD TThSat Line break for 48 hours, nephro following Decompensated hepatic cirrhosis complicated by ascites, portal vein hypertension. She is NOT a candidate for transplant Cholestatic phase now with chronic T.Bili evevation in the 30s. INR 2.0, vitamin K as abvoe. No steroids given recent/current GIB to do therapeutic paracentesis tomorrow lactulose, rifaximin chronic thrombocytopenia due to cirrhosis DVT prophylaxis- SCPs due to gi bleed Full code reason for continued hospitalization: bacteremia, need of dialysis , Permacath problem pending IR evaluation Quality Stroke Does the patient have a stroke diagnosis?: No VTE Prior VTE?: No VTE Risk Level:: Medical - moderate - high VTE Device Contraindication: N/A - Device Ordered VTE Drug Contraindication: Treatment Not Indicated
--- NOTE | 2023-07-30 12:15 | MHC.CM.PN ---
Addendum entered by Emi Beltran 07/30/23 13:05: DC BEING HELD CM FOLLOWING FOR CHANGING DC NEEDS Original Note: PT NOW REFUSING TO RETURN TO [facility] SHE SAYS SHE CAN GO HOME AND HER NEIGHBOR WILL USE HER CAR TO TAKE HER TO HD CM CALLED [facility] AND CONFIRMED PT DOES HAVE AN HD SLOT AT 1115 HOURS PT CALLED HER NEIGHBOR TO CONFIRM HE CAN PICK HER UP TODAY AND TRANSPORT HER TO HD AFTER DC PT SAYS SHE IS AGREEABLE TO HOME SERVICES REFERRAL MADE TO COMFORT [facility]US [facility] PT SAYS HER RIDE WILL BE HERE THIS AFTERNOON
[2023-07-30] MEDS: Phytonadione (Vit K1) 10 MG in 0.9 % Sodium Chloride 50 ML 51 MG IV (12:49)
[2023-07-30 18:18] LABS: Vancomycin Random 15.6 mcg/mL (15-20)
[2023-07-30] MEDS: ondansetron HCL 4 MG/2 ML VIAL IVPUSH (23:11)
[2023-07-31 00:11] VITALS: RESP 18
[2023-07-31 03:25] VITALS: BP 101/61; PULSE 82; RESP 16; TEMP 36.2; O2SAT 98
[2023-07-31] MEDS: Omeprazole 40 MG CAPSULE.DR PO (06:10)
[2023-07-31 07:19] LABS: Hemoglobin 8.8 g/dl (12.0-16.0); INTERNATIONAL NORM RATIO 1.9 (0.9-1.1); PLT CLUMP 1; Prothrombin Time 22.8 SEC (11.1-13.3)
[2023-07-31 07:20] LABS: Anion Gap 17 (12-20); Blood Urea Nitrogen 17 mg/dL (9-16); Calcium 8.7 mg/dL (8.4-10.2); Carbon Dioxide 17 mmol/L (22-29); Chloride 101 mmol/L (96-108); Glucose Random 132 mg/dL (60-115); Potassium 3.9 mmol/L (3.3-5.1); Sodium 131 mmol/L (135-145)
[2023-07-31 07:21] LABS: Hematocrit 23.6 % (37.0-47.0); Mean Corpuscular HGB Conc 37.3 g/dl (31.0-35.0); Mean Corpuscular Hemoglobin 34.1 pg (27.0-33.0); Mean Corpuscular Volume 91.5 fL (80.0-98.0); Red Blood Count 2.58 X10*6/uL (4.20-5.50); Red Cell Distribution Width 19.2 % (11.0-16.0)
[2023-07-31 07:22] VITALS: BP 92/50; PULSE 68; RESP 16; TEMP 36.6; O2SAT 97
[2023-07-31 07:31] LABS: Mean Platelet Volume 12.4 fL (9.4-12.3); Platelet Count 77 X10*3/uL (160-400); White Blood Count 11.8 X10*3/uL (4.8-10.8)
[2023-07-31 07:37] LABS: Alanine Aminotransferase 14 U/L (0-31); Alkaline Phosphatase 165 U/L (39-117); Aspartate Amino Transferase 66 U/L (5-31); Total Protein 5.1 g/dL (6.5-8.0)
[2023-07-31 07:38] LABS: Bilirubin Direct 22.2 mg/dL (0.0-0.5)
[2023-07-31 08:04] LABS: Creatinine Clr Calc Pharmacy 8.2; Estimated Glomerular Filt Rate 8
--- NOTE | 2023-07-31 08:06 | PC.NURSE ---
received pt with HD cath dressing saturated , dressing removed and new pressure dressing applied . Md Ku noticed and at bedside . pt ordered for HDcath check in IR for 07/31
[2023-07-31] MEDS: Folic Acid 1 MG TABLET PO (09:16)
[2023-07-31] MEDS: Magnesium Oxide 400 MG TABLET PO (09:16)
[2023-07-31] MEDS: Lidocaine 4 % Patch ADH..PATCH 1 PATCH TRANSDERMA (09:16)
[2023-07-31] MEDS: Midodrine HCl 5 MG TABLET 15 MG PO ×3 (09:16→17:25)
[2023-07-31] MEDS: rifAXIMin 550 MG TABLET PO ×2 (09:16→20:11)
[2023-07-31] MEDS: Thiamine HCL 100 MG TABLET PO (09:16)
[2023-07-31] MEDS: Lactulose 20 GM/30 ML SOLUTION PO (09:17)
[2023-07-31] MEDS: 0.9 % Sodium Chloride Flush 3 ML SYRINGE IVFLUSH ×3 (09:17→20:12)
--- NOTE | 2023-07-31 13:15 | HO.PM.IMPN ---
Subjective Subjective Date of Service: 07/31/23 Interval History: Seen and evaluated this morning able to walk in [place] with nursing staff have less bleeding from the site of new permacath site no fever or chills Review of Systems Review of Systems: Yes all other systems are reviewed and are negative Physical Exam Vital Signs: Vital Signs: Last Vital Signs Temp 97.8 F 07/31/23 07:22 Pulse 68 07/31/23 07:22 Resp 16 07/31/23 07:22 BP 92/50 L 07/31/23 07:22 Pulse Ox 97 07/31/23 07:22 O2 Del Method Room Air 07/31/23 07:22 BMI result Body Mass Index 25.6 Const: Other: Constitutional : Awake, interactive, not in distress, jaundiced Neck : Normal inspection, Supple Cardiovascular : RRR, no JVP, no lower extremity edema Respiratory : good bilateral air entry, no crackles, wheezes or rhonchi Gastrointestinal: soft, lax, Normal bowel sounds, mild distended with no significant ascites, non-tender Skin : Warm, Dry, PERMAcath left chest wall with small amount of leaked blood. Neurological : Alert & oriented x3, No focal deficit Objective Data Active Medications Bisacodyl (Bisacodyl 10 Mg Supp.Rect) 10 mg [place] DAILY PRN PRN Reason: Constipation Folic Acid (Folic Acid 1 Mg Tablet) 1 mg PO DAILY [facility] Last Admin: 07/31/23 09:16 Dose: 1 mg Documented By: DAVID Guaifenesin (Guaifenesin 200 Mg/10 Ml 10 Ml Liquid) 10 ml PO Q4H PRN PRN Reason: Cough Hydromorphone HCl (Hydromorphone Hcl 0.5 Mg/0.5 Ml Syringe) 0.25 mg IVPUSH Q4H PRN; Protocol PRN Reason: Pain, Severe (Pain Scale 7-10) Last Admin: 07/30/23 22:52 Dose: 0.25 mg Documented By: CK Vancomycin HCl 500 mg/ Sodium (Chloride) 110 mls @ 110 mls/hr IV ONCE ONE Stop: 07/29/23 18:59 Lactulose (Lactulose 20 Gm/30 Ml Solution) 20 gm PO DAILY [facility] Last Admin: 07/31/23 09:17 Dose: 20 gm Documented By: DAVID Lidocaine (Lidocaine 4 % Patch Adh..Patch) 1 patch TRANSDERMA DAILY [facility]; Protocol Last Admin: 07/31/23 09:16 Dose: 1 patch Documented By: DAVID Magnesium Hydroxide (Milk Of Magnesia 30 Ml Oral.Susp) 30 ml PO DAILY PRN PRN Reason: Constipation Magnesium Oxide (Magnesium Oxide 400 Mg Tablet) 400 mg PO DAILY [facility] Last Admin: 07/31/23 09:16 Dose: 400 mg Documented By: DAVID Metoprolol Tartrate (Metoprolol Tartrate 12.5 Mg Halftab) 12.5 mg PO BID [facility]; Protocol Last Admin: 07/30/23 20:19 Dose: Not Given Documented By: CK Non-Admin Reason: bp low Midodrine (Midodrine Hcl 5 Mg Tablet) 15 mg PO TIDWM [facility] Last Admin: 07/31/23 09:16 Dose: 15 mg Documented By: DAVID Omeprazole (Omeprazole 40 Mg Capsule.Dr) 40 mg PO DAILY@0630 [facility] Last Admin: 07/31/23 06:10 Dose: 40 mg Documented By: CK Ondansetron HCl (Ondansetron Hcl 4 Mg/2 Ml Vial) 4 mg IVPUSH Q8H PRN PRN Reason: Nausea and Vomiting Last Admin: 07/30/23 23:11 Dose: 4 mg Documented By: CK Pharmacy Consult (Consult Rx Vancomycin Dosing) 1 each MISCE[place]ANE DAILY PRN PRN Reason: Consult order Rifaximin (Rifaximin 550 Mg Tablet) 550 mg PO BID [facility] Last Admin: 07/31/23 09:16 Dose: 550 mg Documented By: DAVID Sodium Biphosphate/Sodium Phosphate (Sodium Phosphate,[place]-Dibasic 133 Ml Enema) 118 ml [place] DAILY PRN PRN Reason: Constipation Sodium Chloride (0.9 % Sodium Chloride Flush 3 Ml Syringe) 3 ml IVFLUSH QSHIFT [facility] Last Admin: 07/31/23 09:17 Dose: 3 ml Documented By: DAVID Thiamine HCl (Thiamine Hcl 100 Mg Tablet) 100 mg PO DAILY [facility] Last Admin: 07/31/23 09:16 Dose: 100 mg Documented By: DAVID Labs 07/31/23 06:27 07/31/23 06:27 Labs: Laboratory Results - last 24 hr 07/30/23 07/31/23 07/31/23 17:52 06:27 06:27 MCV 91.5 MCH 34.1 H MCHC 37.3 H RDW 19.2 H Plt Count 77 L MPV 12.4 H Absolute Nucleated RBC 0.000 Nucleated RBC % (auto) 0.0 PT 22.8 H INR 1.9 H Anion Gap 17 Estim Creat Clear Calc Cancelled 8.2 Estimated GFR Cancelled Random Glucose Calcium Total Bilirubin Direct Bilirubin AST ALT Alkaline Phosphatase Total Protein Albumin Random Vancomycin 15.6 07/31/23 06:27 MCV MCH MCHC RDW Plt Count MPV Absolute Nucleated RBC Nucleated RBC % (auto) PT INR Anion Gap Estim Creat Clear Calc Estimated GFR 8 Random Glucose 132 H Calcium 8.7 Total Bilirubin 25.0 H Direct Bilirubin 22.2 H AST 66 H ALT 14 Alkaline Phosphatase 165 H Total Protein 5.1 L Albumin 3.0 L Random Vancomycin Assessment and Plan (1) Hemorrhage from dialysis catheter: Status: Acute (2) CLABSI (central line-associated bloodstream infection): Status: Acute (3) Bacteremia due to Enterococcus: Status: Acute Plan 63F PMH alcoholic cirrhosis complicated by portal vein hypertension and ascites, hepatic encephalopathy on lactulose and rifaximin, alcohol use disorder, gout, hypertension, GERD presented with fevers acute dialysis catheter bleeding bleeding at site of permacath local measures, secure and pressure , Surgicel if needed received Vit K IV IR to evaluate tomorrow Sepsis due to E.Faecalis bacteremia likely due to infected hd catheter continue Vancomycin post dialysis cultures from 07/24/23 Had catheter holiday. Cx negative 24 hours. new Permacath placed and tolerated dialysis session To take 750 mg Vancomycin with each dialysis to finish 2 weeks of IV Abx by 08/12 Bacterurea growing E.faecium, no need for Tx per ID Hypotension, chronic not related to sepsis, but rather hypovolemia from third spacing continue midodrine BRBPR dc octreotide day 3 finished H/H baseline and stable Monitor for now, GI consult- pt gi no scope at this time, consider once more stable HRS/ESRD on HD TThSat Line break for 48 hours, nephro following Decompensated hepatic cirrhosis complicated by ascites, portal vein hypertension. She is NOT a candidate for transplant Cholestatic phase now with chronic T.Bili evevation in the 30s. INR 2.0, vitamin K as abvoe. No steroids given recent/current GIB to do therapeutic paracentesis tomorrow lactulose, rifaximin chronic thrombocytopenia due to cirrhosis DVT prophylaxis- SCPs due to gi bleed Full code reason for continued hospitalization: bacteremia, need of dialysis , Permacath problem pending IR evaluation Quality Stroke Does the patient have a stroke diagnosis?: No VTE Prior VTE?: No VTE Risk Level:: Medical - moderate - high VTE Device Contraindication: N/A - Device Ordered VTE Drug Contraindication: Treatment Not Indicated
--- NOTE | 2023-07-31 14:49 | PC.NURSE ---
HD cath continues to ooze and soak through dressings despite use of surgicel this morning . Dr Ku made aware.
[2023-07-31 15:23] VITALS: BP 97/55; PULSE 68; RESP 18; TEMP 36.8; O2SAT 98
--- NOTE | 2023-07-31 17:41 | PC.NURSE ---
Md uK updated that HD cath continues bleed through dressings . more surgicel applied . continue to monitor
[2023-07-31 19:15] VITALS: BP 94/54; PULSE 81; RESP 17; TEMP 36.6; O2SAT 95
[2023-07-31] MEDS: ondansetron HCL 4 MG/2 ML VIAL IVPUSH (20:17)
--- NOTE | 2023-07-31 22:09 | PC.NURSE ---
Addendum entered by Carina Petersen RN 07/31/23 23:29: pressure bag also applied. Original Note: perma cath dressing changed x2 due to dressing saturation and more surgicel applied. notified.
[2023-08-01 03:40] VITALS: BP 100/57; PULSE 96; RESP 18; TEMP 36.3; O2SAT 97
[2023-08-01] MEDS: Omeprazole 40 MG CAPSULE.DR PO (05:43)
[2023-08-01] MEDS: HYDROmorphone HCl 0.5 MG/0.5 ML SYRINGE 0.25 MG IVPUSH (06:21)
[2023-08-01 07:18] LABS: Hemoglobin 7.5 g/dl (12.0-16.0); Mean Corpuscular HGB Conc 37.1 g/dl (31.0-35.0); Mean Corpuscular Hemoglobin 34.2 pg (27.0-33.0); Mean Corpuscular Volume 92.2 fL (80.0-98.0); Mean Platelet Volume 11.7 fL (9.4-12.3); Red Blood Count 2.19 X10*6/uL (4.20-5.50); Red Cell Distribution Width 19.1 % (11.0-16.0); White Blood Count 12.1 X10*3/uL (4.8-10.8)
[2023-08-01 07:25] VITALS: BP 106/59; PULSE 69; RESP 14; TEMP 36.2; O2SAT 95
[2023-08-01 07:43] LABS: Glucose, Whole Blood 115 mg/dL (60-115)
[2023-08-01 07:44] LABS: Hematocrit 20.2 % (37.0-47.0); Platelet Count 78 X10*3/uL (160-400)
[2023-08-01] MEDS: Folic Acid 1 MG TABLET PO (08:18)
[2023-08-01] MEDS: Magnesium Oxide 400 MG TABLET PO (08:18)
[2023-08-01] MEDS: rifAXIMin 550 MG TABLET PO ×2 (08:18→20:51)
[2023-08-01] MEDS: Thiamine HCL 100 MG TABLET PO (08:18)
[2023-08-01] MEDS: Midodrine HCl 5 MG TABLET 15 MG PO ×3 (08:18→17:18)
[2023-08-01] MEDS: Lidocaine 4 % Patch ADH..PATCH 1 PATCH TRANSDERMA (08:20)
[2023-08-01] MEDS: Lactulose 20 GM/30 ML SOLUTION 30 GM PO (08:21)
[2023-08-01] MEDS: ondansetron HCL 4 MG/2 ML VIAL IVPUSH ×2 (08:33→17:21)
--- NOTE | 2023-08-01 10:09 | P.PNIM_ITS ---
Subjective Subjective Date of Service: 08/01/23 Interval History: Seen and evaluated this morning no significant bleeding overnight from the site of new permacath site as pressure was applied Feels weak and reporting nausea Hb dropped to 7.5 No BM yesterday no fever or chills Review of Systems Review of Systems: Yes all other systems are reviewed and are negative Physical Exam 2 Vital Signs: Vital Signs: Last Vital Signs Temp 97.2 F 08/01/23 07:25 Pulse 69 08/01/23 07:25 Resp 14 08/01/23 07:25 BP 106/59 L 08/01/23 07:25 Pulse Ox 95 08/01/23 07:25 O2 Del Method Room Air 08/01/23 07:25 BMI result Body Mass Index 25.6 Const: Other: Constitutional : Awake, interactive, not in distress, jaundiced Neck : Normal inspection, Supple Cardiovascular : RRR, no JVP, no lower extremity edema Respiratory : good bilateral air entry, no crackles, wheezes or rhonchi Gastrointestinal: soft, lax, Normal bowel sounds, mild distended with mild ascites, non-tender Skin : Warm, Dry, PERMAcath left chest wall with small amount of leaked blood. Neurological : Alert & oriented to self and place, No focal deficit Objective Data Active Medications Bisacodyl (Bisacodyl 10 Mg Supp.Rect) 10 mg [place] DAILY PRN PRN Reason: Constipation Folic Acid (Folic Acid 1 Mg Tablet) 1 mg PO DAILY [facility] Last Admin: 08/01/23 08:18 Dose: 1 mg Documented By: HERBERTH Guaifenesin (Guaifenesin 200 Mg/10 Ml 10 Ml Liquid) 10 ml PO Q4H PRN PRN Reason: Cough Hydromorphone HCl (Hydromorphone Hcl 0.5 Mg/0.5 Ml Syringe) 0.25 mg IVPUSH Q4H PRN; Protocol PRN Reason: Pain, Severe (Pain Scale 7-10) Last Admin: 08/01/23 06:21 Dose: 0.25 mg Documented By: PATRICIA Vancomycin HCl 500 mg/ Sodium (Chloride) 110 mls @ 110 mls/hr IV ONCE ONE Stop: 07/29/23 18:59 Lactulose (Lactulose 20 Gm/30 Ml Solution) 30 gm PO BID [facility] Last Admin: 08/01/23 08:21 Dose: 30 gm Documented By: HERBERTH Lidocaine (Lidocaine 4 % Patch Adh..Patch) 1 patch TRANSDERMA DAILY [facility]; Protocol Last Admin: 08/01/23 08:20 Dose: 1 patch Documented By: HERBERTH Magnesium Hydroxide (Milk Of Magnesia 30 Ml Oral.Susp) 30 ml PO DAILY PRN PRN Reason: Constipation Magnesium Oxide (Magnesium Oxide 400 Mg Tablet) 400 mg PO DAILY [facility] Last Admin: 08/01/23 08:18 Dose: 400 mg Documented By: HERBERTH Metoprolol Tartrate (Metoprolol Tartrate 12.5 Mg Halftab) 12.5 mg PO BID [facility]; Protocol Last Admin: 07/30/23 20:19 Dose: Not Given Documented By: CK Non-Admin Reason: bp low Midodrine (Midodrine Hcl 5 Mg Tablet) 15 mg PO TIDWM [facility] Last Admin: 08/01/23 08:18 Dose: 15 mg Documented By: HERBERTH Omeprazole (Omeprazole 40 Mg Capsule.Dr) 40 mg PO DAILY@0630 [facility] Last Admin: 08/01/23 05:43 Dose: 40 mg Documented By: PATRICIA Ondansetron HCl (Ondansetron Hcl 4 Mg/2 Ml Vial) 4 mg IVPUSH Q8H PRN PRN Reason: Nausea and Vomiting Last Admin: 08/01/23 08:33 Dose: 4 mg Documented By: HERBERTH Pharmacy Consult (Consult Rx Vancomycin Dosing) 1 each MISCELLANE DAILY PRN PRN Reason: Consult order Rifaximin (Rifaximin 550 Mg Tablet) 550 mg PO BID [facility] Last Admin: 08/01/23 08:18 Dose: 550 mg Documented By: HERBERTH Sodium Biphosphate/Sodium Phosphate (Sodium Phosphate,[place]-Dibasic 133 Ml Enema) 118 ml [place] DAILY PRN PRN Reason: Constipation Sodium Chloride (0.9 % Sodium Chloride Flush 3 Ml Syringe) 3 ml IVFLUSH QSHIFT [facility] Last Admin: 07/31/23 20:12 Dose: 3 ml Documented By: PATRICIA Thiamine HCl (Thiamine Hcl 100 Mg Tablet) 100 mg PO DAILY [facility] Last Admin: 08/01/23 08:18 Dose: 100 mg Documented By: HERBERTH Labs 08/01/23 05:42 07/31/23 06:27 Labs: Laboratory Results - last 24 hr 08/01/23 08/01/23 05:42 07:29 MCV 92.2 MCH 34.2 H MCHC 37.1 H RDW 19.1 H Plt Count 78 L MPV 11.7 Absolute Nucleated RBC 0.000 Nucleated RBC % (auto) 0.0 POC Glucose 115 Microbiology Microbiology Results: Microbiology 07/27/23 05:24 Blood Culture - Final Blood - Venous No growth after 5 days. 07/27/23 05:24 Blood Culture - Final Blood - Venous No growth after 5 days. Assessment and Plan (1) Hemorrhage from dialysis catheter: Status: Acute (2) CLABSI (central line-associated bloodstream infection): Status: Acute (3) Bacteremia due to Enterococcus: Status: Acute Plan 63F PMH alcoholic cirrhosis complicated by portal vein hypertension and ascites, hepatic encephalopathy on lactulose and rifaximin, alcohol use disorder, gout, hypertension, GERD presented with fevers Acute on chronic blood loss anemia 2/2 Acute dialysis catheter bleeding Hb down to 7.5 received Vit K IV no more bleeding at site of permacath , Bleeding stopped IR checked the catheter, no bleeding at time Nephro to give DDAVP local measures, secure and pressure , Surgicel if needed Sepsis due to E.Faecalis bacteremia likely due to infected hd catheter continue Vancomycin post dialysis cultures from 07/24/23 Had catheter holiday. Cx negative 24 hours. new Permacath placed and tolerated dialysis session To take 750 mg Vancomycin with each dialysis to finish 2 weeks of IV Abx by 08/12 Bacterurea growing E.faecium, no need for Tx per ID Hypotension, chronic Baseline related to cirrhosis. not related to sepsis, but rather hypovolemia from third spacing continue midodrine BRBPR dc octreotide day 3 finished H/H baseline and stable Monitor for now, GI consult- no scope at this time, consider once more stable HRS/ESRD on HD TThSat Line break for 48 hours, nephro following Decompensated hepatic cirrhosis complicated by ascites, portal vein hypertension. She is NOT a candidate for transplant Cholestatic phase now with chronic T.Bili evevation in the 30s. INR 2.0, vitamin K as abvoe. No steroids given recent/current GIB Had therapeutic paracentesis 5L removed 07/28 increase lactulose to tid continue rifaximin chronic thrombocytopenia due to cirrhosis DVT prophylaxis- SCPs due to gi bleed Full code reason for continued hospitalization: bacteremia, need of dialysis , Permacath problem , Quality Stroke Does the patient have a stroke diagnosis?: No VTE Prior VTE?: No VTE Risk Level:: Medical - moderate - high VTE Device Contraindication: N/A - Device Ordered VTE Drug Contraindication: Treatment Not Indicated
[2023-08-01 11:14] LABS: Fibrinogen 146 MG/DL (259-690)
[2023-08-01] MEDS: 0.9 % Sodium Chloride Flush 3 ML SYRINGE IVFLUSH ×3 (11:16→20:51)
[2023-08-01] MEDS: Iron Sucrose Complex 200 MG in 0.9 % Sodium Chloride 100 ML 440 MG IV (11:17)
[2023-08-01 12:19] VITALS: BP 109/59; PULSE 76; RESP 16
[2023-08-01] MEDS: Metoclopramide HCl 10 MG/2 ML VIAL 5 MG IVPUSH (12:19)
--- NOTE | 2023-08-01 12:23 | MHC.CM.PN ---
EMR reviewed. Per MD rounds patient not medically cleared for dc at this time, PT eval pending. CM will continue to follow.
--- NOTE | 2023-08-01 12:32 | PM.EVENT ---
Event Note Date of Service: 08/01/23 Event Note: Patient is s/p Left IJ permcath placement on 07/28. Weekend notes reviewed in regards to bleeding from the catheter site. Patient was brought to IR for evaluation. Her large bulky dressing was removed from left chest wall. A moderate amount of large old dark clot was adhered to the catheter. The left chest was cleansed with saline and the clot was removed from the catheter. There was no visible active bleeding. The left chest wall suture is still intact. A new pressure dressing was applied to the left chest wall and secured with a Tegaderm. The patient was reevaluated 3 hours later, in which her dressing remains intact with no evidence of bleeding. Will continue to observe while in the hospital. Fibrinogen level was noted to be above 100, therefore, no indication for a cryoprecipitate transfusion at this time. Karlo HUERTA Interventional Radiology Time Spent With Patient Time: Total time managing care of this patient today ____ minutes.
--- NOTE | 2023-08-01 12:36 | P.PNNP_ITS ---
Subjective Subjective Date of Service: 08/02/23 Interval history: Events noted. Status post PermCath. There has been oozing around PermCath site. Physical Exam 2 Vital Signs: Vital Signs: Last Vital Signs Temp 97.2 F 08/01/23 07:25 Pulse 76 08/01/23 12:19 Resp 16 08/01/23 12:19 BP 109/59 L 08/01/23 12:19 Pulse Ox 95 08/01/23 07:25 O2 Del Method Room Air 08/01/23 07:25 BMI result Body Mass Index 25.6 Const: General: ill appearing Neck: Neck: Yes supple Resp: Auscultation: clear to auscultation bilaterally Cardio: Palpation: no palpable S3 Heart sounds: no rubs GI: Palpation (GI): Soft to palpation Auscultation: normal bowel sounds Neuro: Motor exam (neuro): no asterixis Objective Data Labs 08/02/23 05:43 07/31/23 06:27 Labs: Laboratory Results - last 24 hr 08/01/23 08/01/23 08/01/23 05:42 07:29 10:10 WBC 12.1 H RBC 2.19 L Hgb 7.5 L Hct 20.2 L* MCV 92.2 MCH 34.2 H MCHC 37.1 H RDW 19.1 H Plt Count 78 L MPV 11.7 Absolute Nucleated RBC 0.000 Nucleated RBC % (auto) 0.0 Hold Purple Top SEE NOTE Fibrinogen 146 L POC Glucose 115 Microbiology Microbiology Results: Microbiology 07/27/23 05:24 Blood - Venous Blood Culture - Final No growth after 5 days. 07/27/23 05:24 Blood - Venous Blood Culture - Final No growth after 5 days. 07/26/23 15:30 Catheter Tip - Other Catheter Tip Culture - Final No growth after 3 days. 07/24/23 15:57 Blood - Venous Blood Culture - Final No growth after 5 days. 07/22/23 23:22 Ascites Fluid Gram Stain - Final 07/22/23 23:22 Ascites Fluid Routine Culture - Final No growth after 2 days 07/22/23 23:22 Ascites Fluid Anaerobic Culture - Final NO GROWTH AFTER 5 DAYS 07/24/23 15:57 Blood - Venous Blood Culture - Final Enterococcus faecalis 07/23/23 17:36 Urine Catheterized - Yao Catheter Urine Culture - Final Enterococcus faecium 07/23/23 13:41 Blood - Venous Blood Culture - Final Enterococcus faecalis 07/23/23 13:41 Blood - Venous Blood Culture - Final Enterococcus faecalis 07/22/23 22:04 Blood - Venous Blood Culture - Final Enterococcus faecalis 07/22/23 21:47 Blood - Venous Blood Culture - Final Enterococcus faecalis 07/24/23 01:27 Sputum - Expectorated Gram Stain - Final 07/24/23 01:27 Sputum - Expectorated Sputum Culture - Final Procedures Date of Service Date of Service: 08/02/23 Assessment & Plan Assessment and plan (1) Hemorrhage from dialysis catheter: Status: Acute (2) Chronic renal failure: Status: Acute Plan Agree with re-evaluation by IR. Administer 1 dose of DDAVP. Hemodialysis per schedule for Tuesday. Antibiotics after dialysis. She will follow along with the team Time Spent With Patient Time: Total time managing care of this patient today ____ minutes. Progress Note: Quality Stroke Does the patient have a stroke diagnosis?: No
[2023-08-01 14:41] LABS: Hemoglobin 7.5 g/dl (12.0-16.0); Mean Corpuscular HGB Conc 36.9 g/dl (31.0-35.0); Mean Corpuscular Hemoglobin 34.7 pg (27.0-33.0); Mean Platelet Volume 11.1 fL (9.4-12.3); NRBC Pct Auto 0.1 /100WBC (0.0-0.2); Platelet Count 101 X10*3/uL (160-400); Red Blood Count 2.16 X10*6/uL (4.20-5.50); White Blood Count 14.9 X10*3/uL (4.8-10.8)
[2023-08-01 14:50] LABS: Hematocrit 20.3 % (37.0-47.0)
[2023-08-01 15:25] VITALS: BP 111/62; PULSE 75; RESP 16; TEMP 36.8; O2SAT 96
[2023-08-01] MEDS: Lactulose 20 GM/30 ML SOLUTION PO ×2 (17:18→20:51)
--- NOTE | 2023-08-01 18:08 | PC.NURSE ---
Pt c/o nausea and dry heaves for most of the day. Medicated with Zofran IV twice this shift. Dr Ku ordered one time Reglan IV in between-given to pt with good effect. Pt sleeping off and on throughout the day. Refused OOB and refused PT. Sight and smell of food nauseated pt. Dressing to right chest remains CDI.
[2023-08-01 19:17] VITALS: BP 96/53; PULSE 76; RESP 17; TEMP 36.2; O2SAT 96
--- NOTE | 2023-08-01 22:48 | PC.NURSE ---
2100 small dressing on perma cath site saturated with blood, dressing changed.2230 dressing with a large amount of bloody staining.dressing changed again and surgicel applied and pressure bag applied.
[2023-08-02] VITALS (7 sets, daily range): BP systolic 100–127; BP diastolic 40–60; PULSE 69–98; RESP 16–20; TEMP 36.1–36.4; O2SAT 95–96
--- NOTE | 2023-08-02 02:38 | PC.NURSE ---
0200 dressing to perma cath site changed again for a moderate amount of bloody staining and more surgicel applied along with pressure bag.
[2023-08-02] MEDS: ondansetron HCL 4 MG/2 ML VIAL IVPUSH (04:50)
--- NOTE | 2023-08-02 04:55 | PC.NURSE ---
0430 perma cath dressing changed again for a large amount of bloody drainage.
[2023-08-02] MEDS: Omeprazole 40 MG CAPSULE.DR PO (05:44)
[2023-08-02 06:21] LABS: Mean Corpuscular HGB Conc 36.3 g/dl (31.0-35.0); Mean Corpuscular Volume 93.7 fL (80.0-98.0); Mean Platelet Volume 10.9 fL (9.4-12.3); Red Blood Count 2.06 X10*6/uL (4.20-5.50); Red Cell Distribution Width 19.3 % (11.0-16.0)
[2023-08-02 06:28] LABS: Hematocrit 19.3 % (37.0-47.0); Platelet Count 88 X10*3/uL (160-400)
--- NOTE | 2023-08-02 10:04 | PM.EVENT ---
Event Note Date of Service: 08/02/23 Event Note: Patient developed recurrent bleeding from Left permacath tunnel site early this am. Patient seen in dialysis this morning. Her dressings were removed. There was a small active ooze from her catheter entry site. A new 3-0 pursestring suture was placed and pressure was held for 15 min. No further bleeding was encountered. A new pressure dressing was applied to the left chest wall. Karlo HUERTA Interventional Radiology Time Spent With Patient Time: Total time managing care of this patient today ____ minutes.
--- NOTE | 2023-08-02 10:28 | P.PNNPD_ITS ---
Subjective Subjective Date of Service: 08/02/23 This patient was seen during dialysis. Interval history: Seen and evaluated this morning no significant bleeding overnight from the site of new permacath site as pressure was applied Feels weak and reporting nausea Hb dropped to 7.5 No BM yesterday no fever or chills Physical Exam Vital Signs: Vital Signs: Last Vital Signs Temp 97 F 08/02/23 07:57 Pulse 69 08/02/23 07:57 Resp 16 08/02/23 07:57 BP 127/57 L 08/02/23 07:57 Pulse Ox 95 08/02/23 07:57 O2 Del Method Room Air 08/02/23 07:57 BMI result Body Mass Index 25.6 Const: Other: Constitutional : Awake, interactive, not in distress, jaundiced Neck : Normal inspection, Supple Cardiovascular : RRR, no JVP, no lower extremity edema Respiratory : good bilateral air entry, no crackles, wheezes or rhonchi Gastrointestinal: soft, lax, Normal bowel sounds,moderate distended with moder ate-large ascites, non-tender Skin : Warm, Dry Neurological : Alert & oriented x3, No focal deficit Assessment & Plan Assessment and plan (1) Hemorrhage from dialysis catheter: Status: Acute (2) Chronic renal failure: Status: Acute Plan HD 3 x week s/p DDAVP Trasnfuse PRBCs as indicated Time Spent With Patient Time: Total time managing care of this patient today ____ minutes. Procedures Date of Service Date of Service: 08/02/23
--- NOTE | 2023-08-02 13:19 | MHC.CM.PN ---
Patient not able to complete PT eval today, HD and transfusion. Patient is agreeable to STR, but not at [facility]. [id number].
[2023-08-02] MEDS: Midodrine HCl 5 MG TABLET 15 MG PO ×2 (13:50→16:48)
--- NOTE | 2023-08-02 15:26 | P.PNIM_ITS ---
Subjective Subjective Date of Service: 08/02/23 Interval History: had bleeding overnight from the site of [facility] site Feels weak and reporting nausea Hb dropped to 7 Moved her bowels Review of Systems Review of Systems: Yes all other systems are reviewed and are negative Physical Exam 2 Vital Signs: Vital Signs: Last Vital Signs Temp 97.4 F 08/02/23 15:17 Pulse 88 08/02/23 15:17 Resp 18 08/02/23 15:17 BP 118/49 L 08/02/23 15:17 Pulse Ox 96 08/02/23 15:17 O2 Del Method Nasal Cannula 08/02/23 15:17 O2 Flow Rate 2.0 08/02/23 15:17 BMI result Body Mass Index 25.6 Const: Other: Constitutional : Awake, interactive, not in distress, jaundiced Neck : Normal inspection, Supple Cardiovascular : RRR, no JVP, no lower extremity edema Respiratory : good bilateral air entry, no crackles, wheezes or rhonchi Gastrointestinal: soft, lax, Normal bowel sounds, mild distended with mild ascites, non-tender Skin : Warm, Dry, PERMAcath left chest wall with saturated gauze around it Neurological : Alert & oriented to self and place, No focal deficit Objective Data Active Medications Bisacodyl (Bisacodyl 10 Mg Supp.Rect) 10 mg AR DAILY PRN PRN Reason: Constipation Folic Acid (Folic Acid 1 Mg Tablet) 1 mg PO DAILY [facility] Last Admin: 08/02/23 08:56 Dose: Not Given Documented By: LANEY Non-Admin Reason: Off unit: Dialysis Guaifenesin (Guaifenesin 200 Mg/10 Ml 10 Ml Liquid) 10 ml PO Q4H PRN PRN Reason: Cough Hydromorphone HCl (Hydromorphone Hcl 0.5 Mg/0.5 Ml Syringe) 0.25 mg IVPUSH Q4H PRN; Protocol PRN Reason: Pain, Severe (Pain Scale 7-10) Last Admin: 08/01/23 06:21 Dose: 0.25 mg Documented By: PATRICIA Vancomycin HCl 500 mg/ Sodium (Chloride) 110 mls @ 110 mls/hr IV ONCE ONE Stop: 07/29/23 18:59 Lactulose (Lactulose 20 Gm/30 Ml Solution) 20 gm PO TID [facility] Last Admin: 08/02/23 08:56 Dose: Not Given Documented By: LANEY Non-Admin Reason: Off unit: Dialysis Lidocaine (Lidocaine 4 % Patch Adh..Patch) 1 patch TRANSDERMA DAILY [facility]; Protocol Last Admin: 08/02/23 08:56 Dose: Not Given Documented By: LANEY Non-Admin Reason: Off unit: Dialysis Magnesium Hydroxide (Milk Of Magnesia 30 Ml Oral.Susp) 30 ml PO DAILY PRN PRN Reason: Constipation Magnesium Oxide (Magnesium Oxide 400 Mg Tablet) 400 mg PO DAILY [facility] Last Admin: 08/02/23 08:56 Dose: Not Given Documented By: LANEY Non-Admin Reason: Off unit: Dialysis Metoprolol Tartrate (Metoprolol Tartrate 12.5 Mg Halftab) 12.5 mg PO BID [facility]; Protocol Last Admin: 07/30/23 20:19 Dose: Not Given Documented By: CK Non-Admin Reason: bp low Midodrine (Midodrine Hcl 5 Mg Tablet) 15 mg PO TIDWM [facility] Last Admin: 08/02/23 13:50 Dose: 15 mg Documented By: RG Omeprazole (Omeprazole 40 Mg Capsule.Dr) 40 mg PO DAILY@0630 [facility] Last Admin: 08/02/23 05:44 Dose: 40 mg Documented By: PATRICIA Ondansetron HCl (Ondansetron Hcl 4 Mg/2 Ml Vial) 4 mg IVPUSH Q8H PRN PRN Reason: Nausea and Vomiting Last Admin: 08/02/23 04:50 Dose: 4 mg Documented By: PATRICIA Rifaximin (Rifaximin 550 Mg Tablet) 550 mg PO BID [facility] Last Admin: 08/02/23 08:57 Dose: Not Given Documented By: LANEY Non-Admin Reason: Off unit: Dialysis Sodium Biphosphate/Sodium Phosphate (Sodium Phosphate,[place]-Dibasic 133 Ml Enema) 118 ml AR DAILY PRN PRN Reason: Constipation Sodium Chloride (0.9 % Sodium Chloride Flush 3 Ml Syringe) 3 ml IVFLUSH QSHIFT [facility] Last Admin: 08/02/23 08:56 Dose: Not Given Documented By: LANEY Non-Admin Reason: Off unit: Dialysis Thiamine HCl (Thiamine Hcl 100 Mg Tablet) 100 mg PO DAILY [facility] Last Admin: 08/02/23 08:57 Dose: Not Given Documented By: LANEY Non-Admin Reason: Off unit: Dialysis Labs 08/02/23 05:43 07/31/23 06:27 Labs: Laboratory Results - last 24 hr 08/02/23 08/02/23 05:43 08:18 MCV 93.7 MCH 34.0 H MCHC 36.3 H RDW 19.3 H Plt Count 88 L MPV 10.9 Absolute Nucleated RBC 0.000 Nucleated RBC % (auto) 0.0 Blood Type B Positive Antibody Screen NEGATIVE Crossmatch See Detail Assessment and Plan (1) Hemorrhage from dialysis catheter: Status: Acute (2) CLABSI (central line-associated bloodstream infection): Status: Acute (3) Bacteremia due to Enterococcus: Status: Acute (4) Enterococcus faecalis infection: Status: Acute Plan 63F PMH alcoholic cirrhosis complicated by portal vein hypertension and ascites, hepatic encephalopathy on lactulose and rifaximin, alcohol use disorder, gout, hypertension, GERD presented with fevers Acute on chronic blood loss anemia 2/2 Acute dialysis catheter bleeding Hb down to 7 received DDAVP and Vit K prior 07/30- To transfuse 1 unit of PRBCs 08/01 IR added few more sutures to the catheter 08/01 local measures, secure and pressure Sepsis due to E.Faecalis bacteremia likely due to infected hd catheter continue Vancomycin post dialysis cultures from 07/24/23 Had catheter holiday. Cx negative 24 hours. new Permacath placed and tolerated dialysis session To take 750 mg Vancomycin with each dialysis to finish 2 weeks of IV Abx by 08/12 Bacterurea growing E.faecium, no need for Tx per ID Hypotension, chronic Baseline related to cirrhosis. not related to sepsis, but rather hypovolemia from third spacing continue midodrine BRBPR dc octreotide day 3 finished H/H baseline and stable Monitor for now, GI consult- no scope at this time, consider once more stable HRS/ESRD on HD TThSat Line break for 48 hours, nephro following Decompensated hepatic cirrhosis complicated by ascites, portal vein hypertension. She is NOT a candidate for transplant Cholestatic phase now with chronic T.Bili evevation in the 30s. INR 2.0, vitamin K as abvoe. No steroids given recent/current GIB Had therapeutic paracentesis 5L removed 07/28 increase lactulose to tid continue rifaximin chronic thrombocytopenia due to cirrhosis DVT prophylaxis- SCPs due to gi bleed Full code reason for continued hospitalization: bacteremia, need of dialysis , Permacath problem , Quality Stroke Does the patient have a stroke diagnosis?: No VTE Prior VTE?: No VTE Risk Level:: Medical - moderate - high VTE Device Contraindication: N/A - Device Ordered VTE Drug Contraindication: Treatment Not Indicated
[2023-08-02] MEDS: Lactulose 20 GM/30 ML SOLUTION PO ×2 (16:49→21:48)
[2023-08-02 19:02] LABS: Vancomycin Random 11.5 mcg/mL (15-20)
[2023-08-02] MEDS: vancomycin HCL 750 MG in 0.9 % Sodium Chloride 250 ML 265 MG IV (20:15)
--- NOTE | 2023-08-02 23:00 | PC.NURSE ---
Assumed care of patient at this time.
[2023-08-03] MEDS: 0.9 % Sodium Chloride Flush 3 ML SYRINGE IVFLUSH ×3 (00:12→17:17)
[2023-08-03 03:31] VITALS: BP 107/55; PULSE 63; RESP 20; TEMP 36.4; O2SAT 95
[2023-08-03] MEDS: Omeprazole 40 MG CAPSULE.DR PO (05:51)
[2023-08-03 06:33] LABS: Hemoglobin 7.5 g/dl (12.0-16.0); Mean Corpuscular HGB Conc 36.8 g/dl (31.0-35.0); Mean Corpuscular Hemoglobin 34.1 pg (27.0-33.0); Mean Corpuscular Volume 92.7 fL (80.0-98.0); Mean Platelet Volume 11.8 fL (9.4-12.3); Red Cell Distribution Width 18.1 % (11.0-16.0); White Blood Count 13.1 X10*3/uL (4.8-10.8)
[2023-08-03 06:37] LABS: Platelet Count 79 X10*3/uL (160-400)
[2023-08-03 06:39] LABS: Hematocrit 20.4 % (37.0-47.0)
[2023-08-03 08:00] VITALS: BP 91/50; PULSE 74; RESP 18; TEMP 36.4; O2SAT 96
[2023-08-03] MEDS: Midodrine HCl 5 MG TABLET 15 MG PO ×3 (09:42→17:15)
[2023-08-03] MEDS: Folic Acid 1 MG TABLET PO (09:42)
[2023-08-03] MEDS: Lactulose 20 GM/30 ML SOLUTION PO ×2 (09:42→17:15)
[2023-08-03] MEDS: Magnesium Oxide 400 MG TABLET PO (09:42)
[2023-08-03] MEDS: Thiamine HCL 100 MG TABLET PO (09:43)
--- NOTE | 2023-08-03 09:48 | P.PNIM_ITS ---
Subjective Subjective Date of Service: 08/03/23 Interval History: no further bleeding Physical Exam 2 Vital Signs: Vital Signs: Last Vital Signs Temp 97.6 F 08/03/23 08:00 Pulse 74 08/03/23 08:00 Resp 18 08/03/23 08:00 BP 91/50 L 08/03/23 08:00 Pulse Ox 96 08/03/23 08:00 O2 Del Method Room Air 08/03/23 08:00 O2 Flow Rate 2 08/03/23 03:31 BMI result Body Mass Index 25.6 permacath site looks clean, no active bleeding jaundiced alert oriented times 3 Objective Data Active Medications Bisacodyl (Bisacodyl 10 Mg Supp.Rect) 10 mg GA DAILY PRN PRN Reason: Constipation Folic Acid (Folic Acid 1 Mg Tablet) 1 mg PO DAILY [facility] Last Admin: 08/02/23 08:56 Dose: Not Given Documented By: LANEY Non-Admin Reason: Off unit: Dialysis Guaifenesin (Guaifenesin 200 Mg/10 Ml 10 Ml Liquid) 10 ml PO Q4H PRN PRN Reason: Cough Hydromorphone HCl (Hydromorphone Hcl 0.5 Mg/0.5 Ml Syringe) 0.25 mg IVPUSH Q4H PRN; Protocol PRN Reason: Pain, Severe (Pain Scale 7-10) Last Admin: 08/01/23 06:21 Dose: 0.25 mg Documented By: PATRICIA Vancomycin HCl 500 mg/ Sodium (Chloride) 110 mls @ 110 mls/hr IV ONCE ONE Stop: 07/29/23 18:59 Lactulose (Lactulose 20 Gm/30 Ml Solution) 20 gm PO TID [facility] Last Admin: 08/02/23 21:48 Dose: 20 gm Documented By: MIRTA Lidocaine (Lidocaine 4 % Patch Adh..Patch) 1 patch TRANSDERMA DAILY [facility]; Protocol Last Admin: 08/02/23 08:56 Dose: Not Given Documented By: LANEY Non-Admin Reason: Off unit: Dialysis Magnesium Hydroxide (Milk Of Magnesia 30 Ml Oral.Susp) 30 ml PO DAILY PRN PRN Reason: Constipation Magnesium Oxide (Magnesium Oxide 400 Mg Tablet) 400 mg PO DAILY [facility] Last Admin: 08/02/23 08:56 Dose: Not Given Documented By: LANEY Non-Admin Reason: Off unit: Dialysis Metoprolol Tartrate (Metoprolol Tartrate 12.5 Mg Halftab) 12.5 mg PO BID [facility]; Protocol Last Admin: 07/30/23 20:19 Dose: Not Given Documented By: CK Non-Admin Reason: bp low Midodrine (Midodrine Hcl 5 Mg Tablet) 15 mg PO TIDWM [facility] Last Admin: 08/02/23 16:48 Dose: 15 mg Documented By: LANEY Omeprazole (Omeprazole 40 Mg Capsule.Dr) 40 mg PO DAILY@0630 [facility] Last Admin: 08/03/23 05:51 Dose: 40 mg Documented By: MARTI Ondansetron HCl (Ondansetron Hcl 4 Mg/2 Ml Vial) 4 mg IVPUSH Q8H PRN PRN Reason: Nausea and Vomiting Last Admin: 08/02/23 04:50 Dose: 4 mg Documented By: PATRICIA Sodium Biphosphate/Sodium Phosphate (Sodium Phosphate,[place]-Dibasic 133 Ml Enema) 118 ml GA DAILY PRN PRN Reason: Constipation Sodium Chloride (0.9 % Sodium Chloride Flush 3 Ml Syringe) 3 ml IVFLUSH QSHIFT [facility] Last Admin: 08/03/23 00:12 Dose: 3 ml Documented By: MARTI Thiamine HCl (Thiamine Hcl 100 Mg Tablet) 100 mg PO DAILY [facility] Last Admin: 08/02/23 08:57 Dose: Not Given Documented By: LANEY Non-Admin Reason: Off unit: Dialysis Labs 08/03/23 05:36 07/31/23 06:27 Labs: Laboratory Results - last 24 hr 08/02/23 08/02/23 08/03/23 08:18 18:00 05:36 MCV 92.7 MCH 34.1 H MCHC 36.8 H RDW 18.1 H Plt Count 79 L MPV 11.8 Absolute Nucleated RBC 0.000 Nucleated RBC % (auto) 0.0 Random Vancomycin 11.5 L Blood Type B Positive Antibody Screen NEGATIVE Crossmatch See Detail Assessment and Plan (1) Hemorrhage from dialysis catheter: Status: Acute (2) CLABSI (central line-associated bloodstream infection): Status: Acute (3) Bacteremia due to Enterococcus: Status: Acute (4) Enterococcus faecalis infection: Status: Acute Plan 63F PMH alcoholic cirrhosis complicated by portal vein hypertension and ascites, hepatic encephalopathy on lactulose and rifaximin, alcohol use disorder, gout, hypertension, GERD presented with fevers Acute on chronic blood loss anemia 2/2 Acute dialysis catheter bleeding Hb stable at 7.5 received DDAVP and Vit K prior 07/30- and 1 unit of PRBCs 08/01 IR added few more sutures to the catheter 08/01 local measures, secure and pressure Sepsis due to E.Faecalis bacteremia likely due to infected hd catheter continue Vancomycin post dialysis cultures from 07/24/23 Had catheter holiday. Cx negative 24 hours. new Permacath placed and tolerated dialysis session To take 750 mg Vancomycin with each dialysis to finish 2 weeks of IV Abx by 08/12 Bacterurea growing E.faecium, no need for Tx per ID Hypotension, chronic Baseline related to cirrhosis. not related to sepsis, but rather hypovolemia from third spacing continue midodrine BRBPR s/p octreotide 3 days H/H baseline and stable Monitor for now, GI consult- no scope at this time, consider once more stable HRS/ESRD on HD TThSat line replaced Decompensated hepatic cirrhosis complicated by ascites, portal vein hypertension. She is NOT a candidate for transplant Cholestatic phase now with chronic T.Bili evevation in the 30s. INR 2.0, vitamin K as abvoe. No steroids given recent/current GIB Had therapeutic paracentesis 5L removed 07/28 lactulose tid continue rifaximin chronic thrombocytopenia due to cirrhosis DVT prophylaxis- SCPs due to gi bleed Full code reason for continued hospitalization: placement Quality Stroke Does the patient have a stroke diagnosis?: No VTE Prior VTE?: No VTE Risk Level:: Medical - moderate - high VTE Device Contraindication: N/A - Device Ordered VTE Drug Contraindication: Treatment Not Indicated
--- NOTE | 2023-08-03 10:39 | PM.DS ---
DS: Providers Provider Date of Service: 08/03/23 Date of admission: 07/23/23 09:24 Primary care physician: Satish Sharma MD Consults: 07/23/23 09:23 Consult to Infectious Diseases Routine Consulting Provider: [facility] Reason for consultation: probable strep bacteremia, ?line sepsis 07/23/23 13:34 Consult to Gastroenterology Routine Consulting Provider: José Nicholas Reason for consultation: decompensated cirrhosis, BRBPR DS: Diagnosis Discharge Diagnosis (1) Hemorrhage from dialysis catheter: Status: Acute (2) CLABSI (central line-associated bloodstream infection): Status: Acute (3) Bacteremia due to Enterococcus: Status: Acute (4) Enterococcus faecalis infection: Status: Acute DS: Summary Hospital Course Hospital Course: Admission note HPI 63-year-old female with history of alcoholic cirrhosis complicated by portal vein hypertension and ascites, hepatic encephalopathy on lactulose and rifaximin, alcohol use disorder, gout, hypertension, GERD presented to the ED yesterday evening from SNF due to fevers of 101.8 and cough. While at the facility, was also noted to be tachypneic with heart rate of 121. The patient is a vague historian and is unable to provide much history. Believes she has had a cough for the last week. She was just discharged from our facility 3 days ago after being hospitalized July 03- for acute decompensated cirrhosis and HRS started on HD TThSat (last dialyzed ), permacath in place R chest, as well as hospitalization 06/05-06/20 for acute alcoholic hepatitis though prednisone had to be discontinued due to GI bleed. Last alcohol consumption was on Tuesday, she has not a liver transplant candidate. Since arrival, patient febrile to 100.4 and tachycardic to 124. She was hypotensive to 86/47 with recovery to 126/72 on admission following IV fluids. She has a leukocytosis of 12.8. Stable, chronic normocytic anemia with H/H 9.5/25.8%, chronic thrombocytopenia with PLT 57. Creatinine 5.15, BUN 21. Sodium 133, chloride 94, electrolytes otherwise normal. Lactic acid on admission 2.9 --> 2.8--> 2.0. Total bilirubin 33.9, direct bilirubin 24.4, AST 53, ALT 8. Initial troponin 25, repeat pending. CRP 8.30, PCT pending. PT 24.9, INR 2.0. Diagnostic paracentesis performed in the ED, not indicative of SBP. RPP negative. CT abdomen/pelvis shows cirrhotic liver with large volume ascites and soft tissue anasarca. There is also mild right colonic wall thickening likely secondary to portal colopathy. Chest CT negative for lung mass or suspicious spiculated nodules. However there is a non solid patchy ground-glass opacity in the left lower lobe measuring 1.4 x 1.2 cm possibly representing patchy infiltrates versus ground-glass nodule, repeat CT recommended every 2-5 years. There is also noted mild interstitial lung disease, incompletely healed right lateral rib fractures as well as other chronic findings. She does have Yao catheter in place and without any urine output noted since placement. She does produce urine at baseline. IV fluids discontinued following 2L administration. Hospital course Patient was admitted for sepsis due to Enterococcus faecalis bacteremia likely due to infected hemodialysis catheter. She was treated with vancomycin and catheter holiday cultures eventually cleared and PermCath replaced. Plan is to kidney vancomycin with dialysis to be completed 08/13/2023. Course was complicated by acute blood loss anemia due to bleeding from new dialysis catheter placement. She received stitches, 1 unit of PRBC, DDAVP, vitamin K and bleeding stopped, hemoglobin stabilized. She was noted to have Enterococcus faecium bacteriuria that was VRE, but felt not to be pathogenic at this time, antibiotics not recommended. Noted to have chronic hypotension related to cirrhosis not sepsis, continued on midodrine. Also noted to have acute blood loss anemia from bright red blood per rectum, received 3 days of octreotide and seen by GI who recommended holding off on scope at this time. For end-stage renal disease was continued on dialysis. For decompensated hepatic cirrhosis complicated by ascites, portal vein hypertension she has not a candidate for transplant. She did have therapeutic paracentesis on 07/29/2023 with 5 L removed. She was continued on lactulose and rifaximin. patient is now medically stable and will return to STR. Time Attestation Discharge Coordination Time (in mins): 37 Quality: Safe Use of Opioids Does Pt have an Active Cancer Diagnosis on the Problem List?: No Quality: Stroke Does the patient have a stroke diagnosis?: No Physical Exam Vital Signs: Vital Signs: Last Vital Signs Temp 97.6 F 08/03/23 08:00 Pulse 74 08/03/23 08:00 Resp 18 08/03/23 08:00 BP 91/50 L 08/03/23 08:00 Pulse Ox 96 08/03/23 08:00 O2 Del Method Room Air 08/03/23 08:00 O2 Flow Rate 2 08/03/23 03:31 BMI result Body Mass Index 25.6 permacath site looks clean, no active bleeding jaundiced alert oriented times 3 DS: Data Data Completed and Pending Completed studies during hospitalization [Text1]: Procedures Drainage of Peritoneal Cavity with Drainage Device, Percutaneous Approach (07/04/23) Drainage of Peritoneal Cavity, Percutaneous Approach (06/06/23) Insertion of Infusion Device into Superior Vena Cava, Percutaneous Approach (07/04/23) Insertion of Tunneled Vascular Access Device into Chest Subcutaneous Tissue and Fascia, Percutaneous Approach (07/04/23) Performance of Urinary Filtration, Intermittent, Less than 6 Hours Per Day (07/04/23) Transfusion of Nonautologous Frozen Plasma into Peripheral Vein, Percutaneous Approach (07/04/23) Transfusion of Nonautologous Platelets into Peripheral Vein, Percutaneous Approach (06/06/23) Transfusion of Nonautologous Red Blood Cells into Peripheral Vein, Percutaneous Approach (07/04/23) Ultrasonography of Superior Vena Cava, Guidance (07/04/23) Labs on day of discharge: Laboratory Results - last 24 hr 08/02/23 08/02/23 08/03/23 08:18 18:00 05:36 WBC 13.1 H RBC 2.20 L Hgb 7.5 L Hct 20.4 L* MCV 92.7 MCH 34.1 H MCHC 36.8 H RDW 18.1 H Plt Count 79 L MPV 11.8 Absolute Nucleated RBC 0.000 Nucleated RBC % (auto) 0.0 Random Vancomycin 11.5 L Blood Type B Positive Antibody Screen NEGATIVE Crossmatch See Detail Discharge Plan Discharge Anticipated Discharge Date/Time: 07/30/23 11:44 Patient Disposition: Xfer [facility] Discharge Diagnosis: Enterococcus Faecalis bactreremia Dialysis catheter infection Referrals: [facility] [Outside] - 1 Day (SHORT TERM REHAB) Satish Sharma MD [Primary Care Provider] - 1 Week Discharge Medications: New vancomycin 750 mg recon soln 750 mg IV .PostHD Continued magnesium oxide 400 mg (241.3 mg magnesium) Tablet 400 mg PO DAILY 300 Days Qty: 300 0RF lactulose 20 gram/30 mL Solution 20 g PO DAILY 30 Days Qty: 900 0RF metoprolol tartrate 25 mg tablet 12.5 mg PO BID 30 Days Qty: 30 0RF omeprazole 40 mg Capsule,Delayed Release(Dr/Ec) 40 mg PO DAILY@0630 30 Days Qty: 30 0RF folic acid 1 mg Tablet 1 mg PO DAILY 30 Days Qty: 30 0RF thiamine mononitrate (vit B1) 100 mg Tablet 100 mg PO DAILY 30 Days Qty: 30 0RF rifaximin 550 mg Tablet 550 mg PO BID midodrine 10 mg Tablet 10 mg PO TID Qty: 90 0RF bisacodyl [Dulcolax (bisacodyl)] 10 mg Suppository 10 mg NM DAILY PRN (Reason: Constipation) Fleet Enema 19-7 gram/118 mL Enema 118 ml NM DAILY PRN (Reason: Constipation) magnesium hydroxide [Milk of Magnesia] 400 mg/5 mL Suspension 30 ml PO DAILY PRN (Reason: Constipation) Discharge Orders: Discharge Order (Routine); Ordered 08/03/23 Ordered By: Michi Medrano Diet: Low salt diet Activity on Discharge: As tolerated Stand Alone Forms: Patient Portal Discharge page Print Language: Divehi Care Plan Goals: You were treated for blood infection of Enterococcus bacteria as a result of dialysis line infection. Fluid restriction to 1.5L daily Continue Midodrine 3 times daily Ensure as supplement Continue Vancomycin 750 mg post dialysis until 08/12. Health Concerns: Read below Plan of Treatment: Read below Assessment: Read below
--- NOTE | 2023-08-03 10:42 | P.F2F_ITS ---
Service Date Service Date: 08/03/23 Encounter Date of encounter: 08/03/23 Reasons for Services Signs and symptoms assessed: frail, weakness Reason for [facility]: medication management, medication treatment and teach disease management Reason for physical therapy: home safety and mobility and therapeutic exercises Homebound: Leaving the home is medically contraindicated at this time without the asist of a device and/or another person due th the listed conditions above and below. Reason homebound: unsteady gait / fall risk Certification: Based on the above findings, I certify that this patient is confined to the home and needs intermittent [facility] care, physical therapy and/or speech therapy, or continues to need occupational therapy. The patient is under my care, and I have initiated the establishment of the plan of care. The patient will be followed by a physician who will periodically review the plan of care. Time Spent With Patient Time: Total time managing care of this patient today ____ minutes.
[2023-08-03] MEDS: Lidocaine 4 % Patch ADH..PATCH 1 PATCH TRANSDERMA (12:13)
--- NOTE | 2023-08-03 12:20 | MHC.CM.PN ---
Addendum entered by Gillian Herrera RN 08/03/23 15:20: PT NOW AGREEABLE TO STR AT [facility], PT DID NOTE INCREASED ABD GIRTH, HOSPITALIST MADE AWARE AND STATES PT CAN HAVE [facility] OUTPT IF NEEDED. [facility] FOR TRANSPORT AT 5:30PM Original Note: EMR REVIEWED, PT MEDICALLY CLEARED FOR DC TO STR HOWEVER REFUSING TO RETURN TO [facility], COMFORT PLUS TO PROVIDE SN/HOME PT HOWEVER CM AWAITING CALL BACK FROM AT [facility] REGARDING TRANSPORTATION PT BELIEVES THEY [facility] WILL ROVIDE TRANSPORT.
[2023-08-03 16:00] VITALS: BP 97/52; PULSE 67; RESP 13; TEMP 36.3; O2SAT 97
== END 2023-08-03 18:05 | disposition skilled nursing facility (03) | DRG 270 ==
LOC: HO.ED 07-23 04:19 → HO.EDOVER 07-23 09:29 → HO.S3 07-24 16:59
PROVIDERS: Physician Assistant Surgical; Radiology Vascular & Interventional Radiology; Student in an Organized Health Care Education/Training Program; Admitting Provider Physician Assistant; Emergency Provider Emergency Medicine; PCP Family Medicine; Visit Provider Internal Medicine
DX: T80.211A Bloodstream infection due to central venous catheter, initial encounter (principal); A41.81 Sepsis due to Enterococcus; K76.7 Hepatorenal syndrome; N18.6 End stage renal disease; R65.21 Severe sepsis with septic shock; K62.5 Hemorrhage of anus and rectum; N17.9 Acute kidney failure, unspecified; D62 Acute posthemorrhagic anemia; T82.838A Hemorrhage due to vascular prosthetic devices, implants and grafts, initial encounter; E86.1 Hypovolemia; Y82.8 Other medical devices associated with adverse incidents; F17.210 Nicotine dependence, cigarettes, uncomplicated; Z71.6 Tobacco abuse counseling; I95.9 Hypotension, unspecified; D63.1 Anemia in chronic kidney disease; D69.59 Other secondary thrombocytopenia; K70.31 Alcoholic cirrhosis of liver with ascites; F10.90 Alcohol use, unspecified, uncomplicated; Z20.822 Contact with and (suspected) exposure to COVID-19; Z99.2 Dependence on renal dialysis; Z79.899 Other long term (current) drug therapy
CPT/HCPCS: 36415; 36558; 36589; 49083; 71045; 71250; 74176; 80048; 80076; 80202; 81001; 82140; 82565; 82803; 82947; 83605; 83735; 84145; 84484; 85025; 85027; 85384; 85610; 86140; 86850; 86900; 86901; 86923; 87040; 87070; 87071; 87073; 87077; 87086; 87088; 87186; 87205; 87493; 87507; 87633; 87640; 87641; 87899; 89051; 90999; 93005; 93308; 97162; 99285; C1750; C1758; C1769; J0696; J1170; J1756; J2354; J2405; J2543; J2597; J2765; J3370; J3371; J3430; J7120; P9016; P9047

== ENCOUNTER → 2023-07-22 21:54 | Outpatient (BNV) | payer MEDICARE, SELFPAY | PROVIDERS: Admitting Provider Physician Assistant; Emergency Provider Emergency Medicine; Visit Provider Internal Medicine Cardiovascular Disease | DX: R00.0 Tachycardia, unspecified (principal) | CPT/HCPCS: 93010 ==

== ENCOUNTER 2023-07-23 09:24 | Outpatient (BNV) | payer MEDICARE, SELFPAY | END 2023-07-28 08:00 | PROVIDERS: Admitting Provider Physician Assistant; Emergency Provider Emergency Medicine; PCP Family Medicine; Visit Provider Physician Assistant Surgical | DX: R18.8 Other ascites (principal) | CPT/HCPCS: 49083 ==

== ENCOUNTER 2023-07-23 09:24 | Outpatient (BNV) | payer MEDICARE, SELFPAY | END 2023-07-25 07:00 | PROVIDERS: Admitting Provider Physician Assistant; Emergency Provider Emergency Medicine; Visit Provider Internal Medicine Cardiovascular Disease | DX: R78.81 Bacteremia (principal); R93.1 Abnormal findings on diagnostic imaging of heart and coronary circulation | CPT/HCPCS: 93308 ==

== ENCOUNTER 2023-07-23 09:24 | Outpatient (BNV) | payer MEDICARE, SELFPAY | END 2023-07-26 15:15 | PROVIDERS: Admitting Provider Physician Assistant; Emergency Provider Emergency Medicine; PCP Family Medicine; Visit Provider Physician Assistant Surgical | DX: R78.81 Bacteremia (principal) | CPT/HCPCS: 36589 ==

== ENCOUNTER 2023-07-23 09:24 | Outpatient (BNV) | payer MEDICARE, SELFPAY | END 2023-07-29 10:45 | PROVIDERS: Admitting Provider Physician Assistant; Emergency Provider Emergency Medicine; PCP Family Medicine; Visit Provider Physician Assistant Surgical | DX: N18.6 End stage renal disease (principal); Z99.2 Dependence on renal dialysis; R78.81 Bacteremia | CPT/HCPCS: 36558; 76937; 77001; 99152 ==

== ENCOUNTER → 2023-07-23 09:24 | Outpatient (BNV) | payer MEDICARE, SELFPAY | PROVIDERS: Admitting Provider Physician Assistant; Emergency Provider Emergency Medicine; Visit Provider Internal Medicine | DX: Z99.2 Dependence on renal dialysis (principal); A41.9 Sepsis, unspecified organism; R65.20 Severe sepsis without septic shock | CPT/HCPCS: 99222; 99232 ==

== ENCOUNTER → 2023-07-23 09:24 | Outpatient (BNV) | payer MEDICARE, SELFPAY | PROVIDERS: Admitting Provider Physician Assistant; Emergency Provider Emergency Medicine; PCP Family Medicine; Visit Provider Internal Medicine Gastroenterology | DX: R78.81 Bacteremia (principal); K74.60 Unspecified cirrhosis of liver | CPT/HCPCS: 99223 ==

== ENCOUNTER → 2023-07-23 09:24 | Outpatient (BNV) | payer MEDICARE, SELFPAY | PROVIDERS: Admitting Provider Physician Assistant; Emergency Provider Emergency Medicine; PCP Family Medicine; Visit Provider Internal Medicine Hypertension Specialist | DX: T82.838A Hemorrhage due to vascular prosthetic devices, implants and grafts, initial encounter (principal); N18.9 Chronic kidney disease, unspecified | CPT/HCPCS: 90935; 99222; 99232 ==

== ENCOUNTER → 2023-07-23 09:24 | Outpatient (BNV) | payer MEDICARE, SELFPAY | PROVIDERS: Admitting Provider Physician Assistant; Emergency Provider Emergency Medicine; Visit Provider Physician Assistant | DX: T82.838A Hemorrhage due to vascular prosthetic devices, implants and grafts, initial encounter (principal); T80.211A Bloodstream infection due to central venous catheter, initial encounter; R78.81 Bacteremia; B95.2 Enterococcus as the cause of diseases classified elsewhere; A49.8 Other bacterial infections of unspecified site | CPT/HCPCS: 99223; 99232; 99233; 99239 ==

== ENCOUNTER → 2023-07-30 | Outpatient (BNV) | payer MEDICARE, SELFPAY | PROVIDERS: PCP Family Medicine; Visit Provider Internal Medicine Hypertension Specialist | DX: N18.6 End stage renal disease (principal) | CPT/HCPCS: 90962 ==